=== PATIENT | male | born 1960 | race Hispanic/Latino ===

== ENCOUNTER → 2023-01-08 | Outpatient (CLI) | payer OTHER | END | disposition home or self-care (01) | LOC: RAH 14:35 | PROVIDERS: ATTEND Family Medicine | DX: M54.50 Low back pain, unspecified (principal); G89.29 Other chronic pain | CPT/HCPCS: 72100 ==

== ENCOUNTER 2024-07-04 11:43 | Inpatient (IN) | payer BC, OTHER ==
[~2024-07-04] VITALS: Ht 172.7 cm; Wt 80.0 kg
--- NOTE | 2024-07-04 12:03 | ERN ---
General Chief Complaint: Lower Extremity Pain/Injury Stated Complaint: LEG SWELLING Time Seen by MD: 11:45 History of Present Illness Initial Comments 64-year-old male presents to the ED for evaluation of lower extremity swelling onset 4 days ago. Patient reports shortness a breath, but denies any other associated symptoms at this time. Patient states he was diagnosed with advanced heart failure at [facility] in February and was prescribed Lasix. Patient states that since he is in house arrest he has trouble getting his prescriptions and is seeking medication refill. No other medical or surgical history mentioned. Allergies: Coded Allergies: No Known Drug Allergies (Unverified Allergy, Unknown, 07/04/24) Past Medical History Past Medical History: Anxiety, CHF, Depression, Diabetes-Type II, Hypertension, Hypothyroid, Renal Disese Past Surgical History: Appendectomy ROS Dictation Constitutional: Negative for fever,chills, and weight loss Eyes: Negative for injury, pain,redness, and discharge ENT: Negative for injury,pain or swelling Cardiovascular: Negative for chest pain, palpitations, and edema Respiratory: Positive for shortness breath, negative for cough, and wheezing, Abdomen/GI: Negative for abdominal pain, nausea, vomiting, diarrhea, and constipation Back: Negative for injury and pain : Negative for injury, bleeding and discharge MS/Extremity: Positive for lower extremity swelling Negative for injury and deformity Skin: Negative for rash, and discoloration Neuro: Negative for headache, weakness, numbness, tingling, and seizure Psych: Negative for suicide ideation, homicidal ideation, and hallucinations Physical Exam Physical Exam Dictation General: awake, alert, NAD Head/Face: Normocephalic, atraumatic Eyes: PERRL, EOMI, vision at baseline ENT: oral cavity clear, TMs clear, no signs of infection Neck: Trachea midline, supple, no nuchal rigidity Cardiovascular: RRR, normal S1/S2, No MRGs, no JVD 2+ bilateral lower extremity pedal edema Respiratory: CTAB, no respiratory distress, No rales or wheezes Abdomen: Soft, non-tender, non-distended, normal bowel sounds, no guarding or rebound. Skin: Warm, dry, normal turgor, no rash MS/Extremity: Pulses equal, no cyanosis, neurovascular intact, FROM Neuro: COAx4, GCS 15, strength 5/5, CN 2-12 intact, normal cerebellar exam, normal gait, Psych: Normal behavior, mood, and affect normal Results Laboratory and Microbiology Lab and Micro Result Laboratory Tests Test 07/04/24 12:07 White Blood Count 6.5 K/uL (4.8-10.8) Red Blood Count 4.86 MIL/uL (4.50-6.20) Hemoglobin 13.3 g/dL (14.0-18.0) L Hematocrit 41.7 % (42-54) L Mean Corpuscular Volume 85.8 fL (79-99) Mean Corpuscular Hemoglobin 27.4 pg (27.0-33.0) Mean Corpuscular Hemoglobin Concent 31.9 g/dL (32.0-36.0) L Red Cell Distribution Width 15.8 % (11.0-15.5) H Platelet Count 221 K/uL (130-400) Mean Platelet Volume 10.8 fL (7.5-10.5) H Immature Granulocyte % (Auto) 0.2 % (0-1) Neutrophils (%) (Auto) 65.9 % (40.0-77.0) Lymphocytes (%) (Auto) 16.9 % (21.0-51.0) L Monocytes (%) (Auto) 14.4 % (3.0-13.0) H Eosinophils (%) (Auto) 2.0 % (0.0-8.0) Basophils (%) (Auto) 0.6 % (0.0-5.0) Neutrophils # (Auto) 4.3 K/uL (1.8-7.7) Lymphocytes # (Auto) 1.1 K/uL (1.0-4.8) Monocytes # (Auto) 0.9 K/uL (0.1-1.0) Eosinophils # (Auto) 0.13 K/uL (0.00-0.70) Basophils # (Auto) 0.04 K/uL (0.00-0.20) Absolute Immature Granulocyte (auto 0.01 K/uL (0-1) Nucleated Red Blood Cells 0.0 % (0.0-0.19) Prothrombin Time 11.8 SEC (9.6-11.6) H Prothromb Time International Ratio 1.10 (0.85-1.15) Sodium Level 131 mmol/L (136-145) L Potassium Level 4.0 mmol/L (3.5-5.1) Chloride Level 97 mmol/L (101-111) L Carbon Dioxide Level 28 mmol/L (21-32) Blood Urea Nitrogen 38 mg/dL (7-18) H Creatinine 1.8 mg/dL (0.5-1.3) H Glomerular Filtration Rate Calc 42 mL/min (>90) Random Glucose 153 mg/dL (70-105) H Total Calcium 8.8 mg/dL (8.5-10.1) Magnesium Level 1.90 mg/dL (1.80-2.40) Total Creatine Kinase 143 U/L (21-232) Troponin I High Sensitivity 1617 ng/L (4-75) *H B-Type Natriuretic Peptide 3830 pg/mL (0-100) H Labs Reviewed?: Yes EKG/XRAY/US/CT/MRI EKG Comment EKG 07/04/2024 time told to ventricular rate 98, sinus rhythm, multiple premature complexes, probable left ventricular hypertrophy, nonspecific T abnormalities. No STEMI MDM MDM: Differential diagnosis: CHF cough fluid overload, ACS 1306- Hospitalist consult, accepts patient for admission Previous outside records reviewed: Old ER visits. Need for hospitalization: Patient does meet criteria for hospitalization. Need for emergency major/minor surgery: No Patient's prior external medical records from other ER visits were reviewed by me as indicated. Prior testing and results from previous visits were reviewed. Prior tests were taken into account with medical decision making and resource utilization, independent historian/historians were used to obtain complete medical history. I independently interpreted the test that were performed, results were reviewed by me and considered findings on radiology if ordered. Medical management and examination interpretation discussions were had by me with other qualified healthcare professionals as indicated for the patient's care. ED Course Orders Procedure Category Date Status Time Cbc With Differential LAB 07/04/24 Complete 11:54 Prothrombin Time With LAB 07/04/24 Complete INR 11:54 B-Type Natriuretic LAB 07/04/24 Complete Peptide 11:54 Chest 1vw RAD 07/04/24 Resulted 11:54 12 Lead Ekg Tracing- EKG 07/04/24 Complete Technical 11:54 Magnesium LAB 07/04/24 Complete 11:54 Creatine Kinase, Total LAB 07/04/24 Complete 11:54 Troponin I High LAB 07/04/24 Complete Sensitivity 11:54 Urinalysis Profile LAB 07/04/24 In Process 11:54 Basic Metabolic Panel LAB 07/04/24 Complete 11:54 Troponin I High LAB 07/04/24 Logged Sensitivity 12:51 Aspirin 325mg Ec Tab PHA 07/04/24 Complete (Aspirin 325mg Ec T 13:00 Heparin 5,000 Unit PHA 07/04/24 In Process Vial (Heparin 5,000 U 13:00 Guaifenesin-Dm PHA 07/04/24 In Process 200/20mg 10ml 13:30 Bumetanide 1mg/4ml PHA 07/04/24 Transmitted Vial (Bumex 1mg Vial) 13:30 Us Renal Sonogram US 07/04/24 Logged 13:18 Urine Sodium,Random LAB 07/04/24 Logged 13:18 Urine Creatinine LAB 07/04/24 Logged Random 13:18 Urea Nitrogen, Urine LAB 07/04/24 Logged Random 13:18 Current Medications Medications (Trade) Dose Ordered Sig/Anjelica Route PRN Reason Start Time Stop Time Status Last Admin Dose Admin Aspirin (Aspirin 325mg Ec Tab) 325 mg ONCE ONCE PO 07/04/24 13:00 07/04/24 13:01 DC 07/04/24 12:59 Bumetanide (Bumex 1mg Vial) 1 mg Q8H IVP 07/04/24 13:30 08/03/24 13:29 UNV Guaifenesin/ Dextromethorphan (RobiTUSSin DM 200/20MG 10ML) 10 ml Q6H PRN PO COUGH 07/04/24 13:30 08/03/24 13:29 Heparin Sodium (Porcine) (HEParin 5,000 UNIT VIAL) 5,000 unit ONCE SQ 07/04/24 13:00 08/03/24 12:59 07/04/24 12:59 Vital Signs Date Time Temp Pulse Resp B/P (MAP) Pulse Ox O2 Delivery O2 Flow Rate FiO2 07/04/24 12:19 98.8 95 17 114/87 95 Room Air* 0 21 07/04/24 11:45 97.5 96 18 132/91 96 Room Air HEART Score Response (Comments) Value History: Moderate suspicion (+1) 1 EKG: Normal 0 Age: 45-65yrs (+1) 1 Risk Factors: 3+ risk factors (+2) 2 Initial Troponin: 1-3x Normal Limit (+1) 1 HEART Score Risk: Mod Risk for MACE (4-6) Total 5 Critical Care Note Critical Time: other (Total critical care time was 33 minutes. Excluding time for procedures. Management of critically ill patient with concern for acute decompensation. Management included interpretation of laboratory values and imaging, hemodynamics, time for consultation with consultants and admitting physician.) DX & DISP Disposition: Inpatient Decision to Admit Date: Jul 04, 2024 Decision to Admit Time: 13:08 Departure Impression: Primary Impression: ACS (acute coronary syndrome) Additional Impressions: Acute CHF, Chronic CHF Condition: Stable Referrals: SELF,REFERRAL (PCP) I have reviewed, & agreed with my scribe's, documentation. (Entered by Dany Regalado, acting as a scribe for Dr. Rock) I personally scribed for MARIUM ROCK MD ([email or web address]) on 07/04/24 at 12:03. Electronically submitted by Dany Regalado ([employer]). I personally scribed for MARIUM ROCK MD ([email or web address]) on 07/04/24 at 12:27. Electronically submitted by Dany Regalado ([employer]). I personally scribed for MARIUM ROCK MD ([email or web address]) on 07/04/24 at 12:54. Electronically submitted by Dany Regalado ([employer]). I personally scribed for MARIUM ROCK MD ([email or web address]) on 07/04/24 at 13:08. Electronically submitted by Dany Regalado ([employer]). I personally scribed for MARIUM ROCK MD ([email or web address]) on 07/04/24 at 13:09. Electronically submitted by Dany Regalado ([employer]). MARIUM ROCK MD Jul 04, 2024 12:03
[2024-07-04 12:14] LABS: BASOPHILS # (AUTO) 0.04 K/uL (0.00-0.20); BASOPHILS % (AUTO) 0.6 % (0.0-5.0); EOSINOPHILS # (AUTO) 0.13 K/uL (0.00-0.70); HEMATOCRIT 41.7 % (42-54); IMMATURE GRANULOCYTE ABSOLUTE 0.01 K/uL (0-1); LYMPHOCYTES # (AUTO) 1.1 K/uL (1.0-4.8); LYMPHOCYTES % (AUTO) 16.9 % (21.0-51.0); MEAN CORPUSCULAR HEMOGLOBIN 27.4 pg (27.0-33.0); MEAN CORPUSCULAR HGB CONC 31.9 g/dL (32.0-36.0); MEAN CORPUSCULAR VOLUME 85.8 fL (79-99); MONOCYTES # (AUTO) 0.9 K/uL (0.1-1.0); MONOCYTES % (AUTO) 14.4 % (3.0-13.0); NEUTROPHILS # (AUTO) 4.3 K/uL (1.8-7.7); NEUTROPHILS % (AUTO) 65.9 % (40.0-77.0); PLATELET COUNT (AUTO) 221 K/uL (130-400); RED BLOOD CELL COUNT(AUTO) 4.86 MIL/uL (4.50-6.20); RED CELL DISTRIBUTION WIDTH 15.8 % (11.0-15.5); WHITE BLOOD COUNT (AUTO) 6.5 K/uL (4.8-10.8)
--- NOTE | 2024-07-04 12:15 | EKG ---
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
[2024-07-04 12:26] LABS: INR 1.1 (0.85-1.15); PROTHROMBIN TIME 11.8 SEC (9.6-11.6)
[2024-07-04 12:28] LABS: CREATININE 1.8 mg/dL (0.5-1.3)
[2024-07-04 12:33] LABS: MAGNESIUM 1.9 mg/dL (1.80-2.40)
--- NOTE | 2024-07-04 12:45 | HMCIMG ---
CHEST 1VW REASON: sob COMPARISON: None. FINDINGS: There is mild cardiomegaly. There is elevation of the right hemidiaphragm, there is a small to moderate right effusion. There are mild perihilar infiltrates which could be early interstitial edema. IMPRESSION: 1. Cardiomegaly with possible early edema. 2. Elevated right hemidiaphragm with a small to moderate right pleural effusion.
[2024-07-04 12:50] LABS: B-TYPE NATRIURETIC PEPTIDE 3830 pg/mL (0-100)
[2024-07-04] MEDS: HEParin 5,000 UNIT VIAL SQ SCH (12:59)
[2024-07-04] MEDS: ASPIRIN 325MG EC TAB PO ONE (12:59)
[2024-07-04 13:29] LABS: APPEARANCE,URINE CLEAR (CLEAR); BILIRUBIN,URINE NEGATIVE (NEGATIVE); COLOR,URINE YELLOW (YELLOW); GLUCOSE, URINE (UA) NEGATIVE (NEGATIVE); KETONES,URINE NEGATIVE (NEGATIVE); LEUKOCYTE ESTERASE ,URINE NEGATIVE Leu/uL (NEGATIVE); NITRATE,URINE NEGATIVE (NEGATIVE); OCCULT BLOOD,URINE MODERATE (NEGATIVE); PROTEIN,URINE 600 mg/dL (NEGATIVE)
[2024-07-04] MEDS ORDERED: guaiFENesin-DM 200/20MG 10ML PO PRN (13:30)
[2024-07-04 13:33] LABS: ADD UA MICROSCOPIC YES
[2024-07-04 13:46] LABS: HEMOGLOBIN A1C 9.6 % (4.0-6.0)
[2024-07-04 13:48] LABS: CREATININE,URINE RANDOM 126.79 mg/dL (30-135)
[2024-07-04 13:53] LABS: AMPHET/METH SCREEN,URINE NEGATIVE (NEGATIVE); BARBITURATE SCREEN, URINE NEGATIVE (NEGATIVE); BENZODIAZEPINES SCREEN,URINE NEGATIVE (NEGATIVE); CANNABINOID SCREEN,URINE NEGATIVE (NEGATIVE); COCAINE SCREEN,URINE NEGATIVE (NEGATIVE); OPIATE SCREEN,URINE NEGATIVE (NEGATIVE); PHENCYCLIDINE SCREEN,URINE NEGATIVE (NEGATIVE)
[2024-07-04 14:00] LABS: ALBUMIN 2.5 g/dL (3.5-5.0); BILIRUBIN,DIRECT 0.4 mg/dL (0.0-0.3); BILIRUBIN,TOTAL 1.1 mg/dL (0.2-1.0); THYROID STIMULATING HORMONE 20.11 uIU/mL (0.36-3.74)
[2024-07-04] MEDS ORDERED: NITROGLYCERIN 0.4 MG SL TAB SL PRN (14:00)
[2024-07-04] MEDS ORDERED: IpraTROPium 0.5 MG/2.5 ML INH IH PRN (14:00)
[2024-07-04] MEDS ORDERED: ondanSETRON 4MG INJ IVP PRN (14:00)
[2024-07-04 14:04] VITALS: PULSE 96; RESP 18; O2SAT 98
--- NOTE | 2024-07-04 14:05 | HMCIMG ---
US RENAL SONOGRAM REASON: RENAL FAILURE COMPARISON: None TECHNIQUE: Renal and bladder sonogram was performed. FINDINGS: Right kidney is 9.4 x 5.4 x 4.5 cm, left 9.5 x 4.8 x 4.7 cm. There is no mass, stone or hydronephrosis. Cortex appears preserved. Cortex appears mildly echogenic. Urinary bladder was not distended at the time of dictation. IMPRESSION: 1. Mildly echogenic but otherwise normal-appearing kidneys. 2. Urinary bladder not well seen.
--- NOTE | 2024-07-04 14:05 | HMCIMG ---
US VENOUS DOPPLER BILATERAL REASON: R/O dvt, BILATERAL LOWER EXTREMITY EDEMA COMPARISON: None Technique: Bilateral venous doppler ultrasound was performed with spectral analysis and color flow imaging technique. FINDINGS: There is a normal appearance of the common femoral, deep femoral, the profunda femoris and popliteal veins. Proximal calf veins appear normal as well. There is normal response to compression and augmentation. There is no evidence of deep venous thrombosis. IMPRESSION: Normal bilateral lower extremity venous Doppler ultrasound.
[2024-07-04 14:18] LABS: BACTERIA,URINE RARE /HPF (None Seen)
[2024-07-04] MEDS: BUMETANIDE 1MG/4ML VIAL IVP SCH (14:42)
[2024-07-04 14:46] LABS: SARS-CoV-2, RNA, NAAT NEGATIVE SARS CoV-2 (NEGATIVE)
[2024-07-04 14:52] LABS: INFLUENZA TYPE A Negative For Type A (NEGATIVE); INFLUENZA TYPE B Negative For Type B (NEGATIVE)
--- NOTE | 2024-07-04 16:17 | HP ---
[facility] HISTORY AND PHYSICAL Date of Service: Jul 04, 2024 Time of Service: 14:23 HISTORY OF PRESENT ILLNESS: 64 year old male with a past medical history of hypertension, hyperlipidemia, uncontrolled diabetes type II A1c 9.6, diabetic neuropathy, stage 3 chronic kidney disease, Hx of proliferative retinopathy of bilateral eyes with bilateral vitreous hemorrhage and bilateral cataracts (Legally blind of both eyes) and hx of suspected severe ischemic cardiomyopathy who presented to the ED with complaints of being short of breath for the past four days and lower extremity swelling. Patient states he was diagnosed with advanced heart failure in February and was prescribed Lasix. Patient states that since he is in house arrest he has trouble getting his prescriptions and is seeking medication refill. He denies chest pain, vomiting, abdominal pain, diarrhea, constipation, and fever. He has been unable to follow up with Cardiology as outpatient. Patient also states when he sleeps he wakes up gasping for air and is unable to walk more than 50-60 feet. Patient was hospitalized in [facility] in February, for heart failure exacerbation. Patient was seen by Cardiology and underwent stress test. Patient reports receiving anticoagulation therapy during hospitalization which caused severe vision movement which took several months to slowly improve. Patient reports he continued to be legally blind. Patient was advised on cardiac catheterization but due to hx of vitreous hemorrhage, patient opted for medical management minimizing antiplatelet/ anticoagulant therapy. In the ED patient was given aspirin and a 12 lead EKG showed sinus rhythm with multiple premature complexes probably due to left ventricular hypertrophy with nonspecific T abnormalities. A chest x-ray shows cardiomegaly with possible early edema and an elevated right hemidiaphragm with a small to moderate right pleural effusion. Remarkable labs: Hemoglobin 13.3, hematocrit 41.7, elevated PT of 11.8, elevated troponins of 1404. Urinalysis shows proteinuria 600, hematuria, hyaline casts and positive for urobilinogenuria. AST 67, ALK-PHOS 232, CRP 11.8, TSH 20.11. Physical exam showed bilateral lower lobe crackles on auscultation with bilateral pitting edema on the lower extremities. Abdomen was soft and nontender. Patient will be admitted for further management of heart failure exacerbation in the setting of severe cardiomyopathy with EF less than 20 %. Patient will be admitted to Cardiac telemetry floor and consultation with Nephrology and Cardiology will be requested. REVIEW OF SYSTEMS CONSTITUTIONAL: Complains of chills and sweats but denies fever. No unintentional weight loss reported. NEUROLOGICAL: Denies headache, amaurosis fugax, motor weakness, sensory deficit, vertigo/spinning sensation, gait abnormalities, or tremors. ENT: No hearing loss, otalgia, otorrhea, rhinitis, rhinorrhea, hoarseness, or sore throat. CARDIOVASCULAR: Denies any exertional angina, dyspnea on exertion, complains of orthopnea and paroxysmal nocturnal dyspnea, denies palpitations, life- threatening arrhythmias, claudication. PULMONARY: Complains of shortness of breath, cough, denies phlegm/sputum, hemoptysis, pleuritic chest pain. SLEEP: Denies morning headaches, daytime somnolence or napping. Complains of difficulty falling asleep, staying asleep, waking from sleep. Denies knowledge of snoring. GASTROINTESTINAL: Denies any type of dysphagia to either liquids or solids. Denies nausea, vomiting, pyrosis, early satiety, abdominal pain, diarrhea, constipation, or changes in stool consistency or caliber. Denies coffee-ground emesis, hematemesis, hematochezia, or melanotic stools. GENITOURINARY: Denies frequency, urgency, nocturia, hematuria or incontinence (Storage/Irritative symptoms.) Low urinary stream, straining to void, urinary intermittency or hesitancy, splitting of the voiding stream, terminal dribbling. ENDOCRINOLOGIC: Denies polyuria, polydipsia, polyphagia or heat/cold intolerances. HEMATOLOGIC: Denies thrombophilia/previous clots, or coagulopathy/bleeding disorders. ONCOLOGIC: Denies personal history of malignancy. DERMATOLOGIC: Denies rashes or pruritus. PSYCHIATRIC: Denies any suicidal or homicidal ideation. Denies hallucinations. PAST MEDICAL HISTORY: Diabetes type II for 30 years, hypertension, hyperlipidemia, diabetic retinopathy and neuropathy, chronic kidney disease stage III, advanced heart failure with suspected ischemic cardiomyopathy, Hx of proliferative retinopathy of bilatera l eyes with bilateral vitreous hemorrhage and bilateral cataracts, reports being legally blind for several months now PAST SURGICAL HISTORY: appendectomy 2018 PAST SOCIAL HISTORY: former smoker and social drinker denies illicit drug use independent with ADL's, needs assistance with ADL's Patient is in house arrest currently FAMILY HISTORY: noncontributory Allergies: patient has no known drugs allergies Home medications: patient will be bringing home medication list to be reconciled and updated Coded Allergies: No Known Drug Allergies (Unverified Allergy, Unknown, 07/04/24) PHYSICAL EXAM GENERAL APPEARANCE: The patient is awake, alert, and oriented, in no acute cardiopulmonary distress. NEUROLOGICAL: Cranial nerves II-XII grossly intact. Motor is 5/5 in bilateral upper and lower extremities proximal to distal. No sensory deficits. HEENT: Face is symmetric. Pupils are equal and reactive. Extraocular movements are intact. NECK: Supple. No JVD. No thyromegaly. No submental, submandibular, pre- /postauricular, occipital or supraclavicular lymphadenopathy. CHEST: Normal chest expansion. No Telemetry. LUNGS: bilateral lower lobe crackles CARDIOVASCULAR: Regular. S1 and S2 normal. No appreciable rubs, murmurs or gallops. ABDOMEN: Soft, nontender, and nondistended. There is no rebound, voluntary guarding, or rigidity. : Deferred. No Guillermo. EXTREMITIES: 2+ bilateral lower leg pitting edema. not cyanotic. No clubbing. Good capillary refill. SKIN: No skin breakdown. Vital Sign (Last 24 Hours) 07/04/24 07/04/24 13:25 14:04 Temp 98.8 Pulse 96 Resp 18 B/P (MAP) 145/98 Pulse Ox 99 O2 Delivery N/A Room Air O2 Flow Rate 0 FiO2 21 LABS: Laboratory: Test 07/04/24 13:22 07/04/24 13:03 07/04/24 12:07 Range/Units Lactic Acid Level 1.8 0.8-2.5 mmol/L Total Bilirubin 1.1 H 0.2-1.0 mg/dL Direct Bilirubin 0.4 H 0.0-0.3 mg/dL Aspartate Amino Transf (AST/SGOT) 67 H 10-37 U/L Alanine Aminotransferase (ALT/SGPT) 56 12-78 U/L Alkaline Phosphatase 232 H 50-136 U/L Troponin I High Sensitivity 1404 *H 4-75 ng/L C-Reactive Protein, Quantitative 11.80 H 0.5-3.0 mg/L Total Protein 8.0 6.0-8.3 g/dL Albumin 2.5 L 3.5-5.0 g/dL Procalcitonin 0.08 0.05-0.5 ng/mL Thyroid Stimulating Hormone (TSH) 20.11 H 0.36-3.74 uIU/mL Urine Color YELLOW YELLOW Urine Appearance CLEAR CLEAR Urine pH 6.0 5.0-8.0 Urine Specific Sarah Ann 1.019 1.001-1.031 Urine Protein 600 H NEGATIVE mg/dL Urine Glucose (UA) NEGATIVE NEGATIVE mg/dL Urine Ketones NEGATIVE NEGATIVE mg/dL Urine Occult Blood MODERATE H NEGATIVE Urine Nitrate NEGATIVE NEGATIVE Urine Bilirubin NEGATIVE NEGATIVE mg/dL Urine Urobilinogen 2.0 H 0.2-1.0 mg/dL Urine Leukocyte Esterase NEGATIVE NEGATIVE Anabelle/uL Urine RBC 11-25 H 0-1 /HPF Urine WBC 2-5 H 0-1 /HPF Urine Bacteria RARE None Seen /HPF Urine Hyaline Casts 6-10 H 0-1 /LPF /LPF Urine Random Creatinine 126.79 30-135 mg/dL Urine Random Sodium 55 40-220 mmol/l Urine Opiates Screen NEGATIVE NEGATIVE Urine Barbiturates Screen NEGATIVE NEGATIVE Urine Phencyclidine Screen NEGATIVE NEGATIVE Urine Amphetamines Screen NEGATIVE NEGATIVE Urine Benzodiazepines Screen NEGATIVE NEGATIVE Urine Cocaine Screen NEGATIVE NEGATIVE Urine Marijuana (THC) Screen NEGATIVE NEGATIVE White Blood Count 6.5 4.8-10.8 K/uL Red Blood Count 4.86 4.50-6.20 MIL/uL Hemoglobin 13.3 L 14.0-18.0 g/dL Hematocrit 41.7 L 42-54 % Mean Corpuscular Volume 85.8 79-99 fL Mean Corpuscular Hemoglobin 27.4 27.0-33.0 pg Mean Corpuscular Hemoglobin Concent 31.9 L 32.0-36.0 g/dL Red Cell Distribution Width 15.8 H 11.0-15.5 % Platelet Count 221 130-400 K/uL Mean Platelet Volume 10.8 H 7.5-10.5 fL Immature Granulocyte % (Auto) 0.2 0-1 % Neutrophils (%) (Auto) 65.9 40.0-77.0 % Lymphocytes (%) (Auto) 16.9 L 21.0-51.0 % Monocytes (%) (Auto) 14.4 H 3.0-13.0 % Eosinophils (%) (Auto) 2.0 0.0-8.0 % Basophils (%) (Auto) 0.6 0.0-5.0 % Neutrophils # (Auto) 4.3 1.8-7.7 K/uL Lymphocytes # (Auto) 1.1 1.0-4.8 K/uL Monocytes # (Auto) 0.9 0.1-1.0 K/uL Eosinophils # (Auto) 0.13 0.00-0.70 K/uL Basophils # (Auto) 0.04 0.00-0.20 K/uL Absolute Immature Granulocyte (auto 0.01 0-1 K/uL Nucleated Red Blood Cells 0.0 0.0-0.19 % Prothrombin Time 11.8 H 9.6-11.6 SEC Prothromb Time International Ratio 1.10 0.85-1.15 Sodium Level 131 L 136-145 mmol/L Potassium Level 4.0 3.5-5.1 mmol/L Chloride Level 97 L 101-111 mmol/L Carbon Dioxide Level 28 21-32 mmol/L Blood Urea Nitrogen 38 H 7-18 mg/dL Creatinine 1.8 H 0.5-1.3 mg/dL Glomerular Filtration Rate Calc 42 >90 mL/min Random Glucose 153 H 70-105 mg/dL Hemoglobin A1c 9.6 H 4.0-6.0 % Estimated Average Glucose (eAG) 229 H 70-126 mg/dL Total Calcium 8.8 8.5-10.1 mg/dL Magnesium Level 1.90 1.80-2.40 mg/dL Total Creatine Kinase 143 21-232 U/L B-Type Natriuretic Peptide 3830 H 0-100 pg/mL Current Medications Medications (Trade) Dose Ordered Sig/Anjelica Route PRN Reason Start Time Stop Time Status Last Admin Dose Admin Acetaminophen (TYLenol 500MG TAB) 500 mg Q6H PRN PO MILD PAIN (1-3) 07/04/24 14:00 08/03/24 13:59 Aspirin (Aspirin 81mg Ec Tab) 81 mg DAILY PO 07/05/24 09:00 08/04/24 08:59 Budesonide (Pulmicort 0.5 Mg/2ml) 0.5 mg BIDRESP IH 07/04/24 18:00 08/03/24 17:59 Bumetanide (Bumex 1mg Vial) 1 mg Q8H IVP 07/04/24 13:30 08/03/24 13:29 Guaifenesin/ Dextromethorphan (RobiTUSSin DM 200/20MG 10ML) 10 ml Q6H PRN PO COUGH 07/04/24 13:30 08/03/24 13:29 Heparin Sodium (Porcine) (HEParin 5,000 UNIT VIAL) 5,000 unit ONCE SQ 07/04/24 13:00 07/04/24 13:37 DC 07/04/24 12:59 5,000 UNIT Insulin Human Regular (humuLIN R 100 UNIT/ML 3ML) INSULIN SLIDING SCAL... ACHS SQ 07/04/24 16:30 08/03/24 16:29 Ipratropium [place] (AtrovENT UD) 0.5 mg Q6H PRN IH SHORTNESS OF BREATH 07/04/24 14:00 08/03/24 13:59 Magnesium Sulfate 50 ml @ 0 mls/hr PROTOCOL IV 07/04/24 14:00 08/03/24 13:59 Nitroglycerin (Nitrostat) 0.4 mg AD PRN SL CHEST PAIN 07/04/24 14:00 08/03/24 13:59 Ondansetron HCl (zoFRAN 4MG INJ) 4 mg Q6H PRN IVP NAUSEA/VOMITING 07/04/24 14:00 08/03/24 13:59 DIAGNOSTICS / RADIOLOGY: [place] [address] IMAGING REPORT Signed PATIENT: RENATA BANERJEE MR#: [id number] : 1960 SEX: M AGE: 64 LOCATION: [facility] ORDER 1155 STATUS: REG ER REPORT#: [id number] SERVICE 1154 REASON: sob ORDERING PHYSICIAN: MARIUM WYNN MD PROCEDURE: CXR1VW - CHEST 1VW CHEST 1VW REASON: sob COMPARISON: None. FINDINGS: There is mild cardiomegaly. There is elevation of the right hemidiaphragm, there is a small to moderate right effusion. There are mild perihilar infiltrates which could be early interstitial edema. IMPRESSION: 1. Cardiomegaly with possible early edema. 2. Elevated right hemidiaphragm with a small to moderate right pleural effusion. DICTATED BY: CAMDEN WAGNER MD DATE: 07/04/24 124 ELECTRONICALLY SIGNED BY: CAMDEN WAGNER MD DATE: 07/04/24 [address] [place] [id number] [address] IMAGING REPORT Signed PATIENT: RENATA BANERJEE MR#: [id number] : 1960 SEX: M AGE: 64 LOCATION: [facility] ORDER 1320 STATUS: ADM IN REPORT#: [id number] SERVICE 1318 REASON: RENAL FAILURE ORDERING PHYSICIAN: ANNITA WEEMS MD PROCEDURE: RENAL - US RENAL SONOGRAM US RENAL SONOGRAM REASON: RENAL FAILURE COMPARISON: None TECHNIQUE: Renal and bladder sonogram was performed. FINDINGS: Right kidney is 9.4 x 5.4 x 4.5 cm, left 9.5 x 4.8 x 4.7 cm. There is no mass, stone or hydronephrosis. Cortex appears preserved. Cortex appears mildly echogenic. Urinary bladder was not distended at the time of dictation. IMPRESSION: 1. Mildly echogenic but otherwise normal-appearing kidneys. 2. Urinary bladder not well seen. DICTATED BY: CAMDEN WAGNER MD DATE: 07/04/241401 ELECTRONICALLY SIGNED BY: CAMDEN WAGNER MD DATE: 07/04/24 [address] [place] [address] [address] IMAGING REPORT Signed PATIENT: RENATA BANERJEE MR#: [id number] : 1960 SEX: M AGE: 64 LOCATION: [facility] ORDER 1330 STATUS: ADM IN REPORT#: [id number] SERVICE 1327 REASON: R/O dvt, BILATERAL LOWER EXTREMITY EDEMA ORDERING PHYSICIAN: ANNITA WEEMS MD PROCEDURE: VENOUS BENJA - US VENOUS DOPPLER BILATERAL US VENOUS DOPPLER BILATERAL REASON: R/O dvt, BILATERAL LOWER EXTREMITY EDEMA COMPARISON: None Technique: Bilateral venous doppler ultrasound was performed with spectral analysis and color flow imaging technique. FINDINGS: There is a normal appearance of the common femoral, deep femoral, the profunda femoris and popliteal veins. Proximal calf veins appear normal as well. There is normal response to compression and augmentation. There is no evidence of deep venous thrombosis. IMPRESSION: Normal bilateral lower extremity venous Doppler ultrasound. DICTATED BY: CAMDEN WAGNER MD DATE: 07/04/241402 ELECTRONICALLY SIGNED BY: CAMDEN WAGNER MD DATE: 07/04/241404 ASSESSMENT: 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, POA Hx of severe suspected Ischemic Cardiomyopathy with LVEF less than 20%, POA Acute Hypoxemic respiratory failure with Cardiogenic Pulmonary edema, POA JOAQUÍN on CKD with Suspected underlying Cardiorenal Syndrome, POA Nephrotic range proteinuria, POA Elevated Troponin, likely due to CHF exacerbation and Demand Ischemia, r/o active ACS, POA Hx of Bilateral Vitreous Hemorrhage with legal blindness, POA Hx of Bilateral Cataracts of the eyes, POA diabetes mellitus type II A1c 9.6 - POA stage III chronic kidney disease - POA hyperlipidemia - POA hypertension - POA Right sided Pleural Effusion, POA cardiorenal syndrome - POA bilateral diabetic or hypertensive retinopathy bilateral diabetic neuropathy former smoker Uncontrolled Hypothyroidism, POA PLAN: Admit to PCCU Acute on chronic combined congestive heart failure exacerbation Hx of suspected severe ICM with EF less than 20 % Hx of positive stress test in 02/27 Cardiogenic Pulmonary edema with right sided pleural effusion Rule out ACS - Cardiology consult. Appreciate recommendations - Bumex 1mg Q8H, monitor urine output closely, may need inotropic support with Dobutamine in case patient urine output remains poor - 2D echo follow up on results - Trend troponin to r/o active ACS - Hold beta blockers for now given low output state, hold MAKSIM due to JOAQUÍN on CKD - Nitrostat 0.4 mg prn for chest pain - Strict I & Os - Daily weight - Fluid restriction less than 1.5L in 24 hour - Heart healthy diet - Follow hemodynamics JOAQUÍN on CKD Suspected Cardiorenal syndrome Stage III chronic kidney disease Diabetes type II A1c 9.6 Bilateral diabetic/hypertensive retinopathy Bilateral diabetic neuropathy Hypertension -Nephrology consult. Appreciate recommendations - renal ultrasound - Urine protein - Urine creatine - Strict monitoring of intake, output and overall fluid balance - Daily weights - Avoid nephrotoxic medications to the extent possible - Monitor electrolytes and replace as needed - Medications to be dosed according to renal function - Avoid contrast if possible - Maintain blood glucose between 100-180 at all times - Basal Lantus 10 units - Insulin sliding scale for blood glucose management - Hypoglycemia and hyperglycemia protocol in place Acute Hypoxic Respiratory due to Pulmonary edema Right sided Pleural Effusion as per chest xray 07/04/24 c/w IV diuresis Atrovent 0.5mg q6h prn for SOB Pulmicort 0.5 mg Supplemental O2 as needed BiPAP as necessary for respiratory distress Titrate Fio2 to keep Spo2 > or = 90% DuoNebs and CPT (chest physical therapy) as needed IS hourly while awake for pulmonary Out of bed to chair as tolerated Maintain aspiration precautions at all times Hx of Bilateral vitreous hemorrhage with legal blindness Hx of bilateral cataracts Hx of retinopathy of bilateral eyes - Patient reports that his vision worsened after receiving anticoagulation and antiplatelet therapy in [facility], he wants to hold off on heparin gtt or full dose Lovenox. I spoke with Dr. Nolan with Ophthalmology who stated that patient has been legally blind since 08/28. Per her, we can proceed with antiplatelet/ anticoagulation as benefits of treating his cardiac comorbidities outweigh the risk of worsening his vision. Patient still wants to hold off on a/c as he worried about losing his vision. Per Dr. Nolan, she may evaluate him in [facility] in t he next 2-3 days, if unable to, she recommended close ooutpatient follow up with Ophthalmology in clinic Hyperlipidemia - Atorvastatin 20 mg HS - Zofran 4mg q6h prn nausea - Acetaminophen 500 mg PO q6h for pain - DVT prophylaxis - SCD's of bilateral legs - PT/OT - Repeat Labs in the AM - Repeat Chest Xray in the AM - Follow further medical management per Nephrology and Cardiology recommendations ATTESTATION BY PHYSICIAN I have seen and examined the patient personally. I reviewed the documentation, medical decision making, and treatment plan as noted by the resident provider above. I agree with the findings and plan of care. ALBERTO White MD Jul 04, 2024 16:17 ANNITA WEEMS MD Jul 05, 2024 19:04
[2024-07-04 16:35] VITALS: BP 114/50; PULSE 97; RESP 18; TEMP 97.7
[2024-07-04] MEDS ORDERED: FURO40TA5 PO (16:40)
[2024-07-04] MEDS ORDERED: MELO-108 PO (16:40)
[2024-07-04] MEDS ORDERED: FAMO20TA8 PO (16:40)
[2024-07-04] MEDS ORDERED: ATOR20TA65 PO (16:40)
[2024-07-04] MEDS ORDERED: LEVO50CA4 PO (16:40)
[2024-07-04] MEDS ORDERED: LOSA25TA41 PO (16:40)
[2024-07-04] MEDS ORDERED: AEC81 PO (16:40)
[2024-07-04] MEDS ORDERED: METO-391 PO (16:40)
[2024-07-04] MEDS: INSULIN humuLIN R 100 UNIT/ML 3ML SQ SCH (16:52)
--- NOTE | 2024-07-04 16:57 | CONS ---
CONSULT NOTE: CARDIOLOGY Reason for consult: CHF HPI/story at presentation: This is a pleasant 64-year-old male with past medical history of the present with complaints of shortness of breath, was diagnosed with CHF exacerbation ca rdiology was consulted for further evaluation management. Known history of cardiomyopathy, ejection fraction 15 to 20% with previous stress testing with no ischemia or infarction pattern, 02/2024 he has been noncompliant with Lasix at home, here for further eval Management Subjective: 07/04/2024, shortness of breath, lower extremity edema Past medical history: See below Allergies, Meds See chart Review of systems Review of Systems Constitutional: Negative for chills and fever. HENT: Negative for ear discharge and ear pain. Eyes: Negative for photophobia and discharge. Respiratory: Negative for cough, sputum production and stridor. Cardiovascular: Negative for chest pain and palpitations. Gastrointestinal: Negative for diarrhea and vomiting. Genitourinary: Negative for frequency. Musculoskeletal: Negative for myalgias. Skin: Negative for rash. Neurological: Negative for focal weakness and seizures. Endo/Heme/Allergies: Negative for polydipsia. Psychiatric/Behavioral: Negative for hallucinations. Vitals see chart PHYSICAL EXAMINATION GENERAL: The patient is alert and oriented*3 HEENT: Nonicteric sclerae, non traumatic HEART: Regular rate and rhythm with no murmurs LUNGS: Clear to auscultation bilaterally ABDOMEN: No acute issues, non tender GENITAL, RECTAL: deferred SKIN: No rash NEUROLOGIC: NFND EXTREMITIES:EDEMA 06/2024 ASSESSMENT EXACERBATION OF CHF Noncompliant with diuretics at home History of suspected ischemic cardiomyopathy Stress test with infarction pattern, 02/2024 Ejection fraction of 15 to 20%, 06/2024 On diuresis with Bumex, 06/2024 Normal venous Dopplers, 06/2024 NSTEMI Initial troponin of 1600, trending down HEMATURIA Moderate hematuria, 06/2024 CHRONIC KIDNEY DISEASE Stage III 1.8 at presentation Creatinine at discharge from hospital, 06/2024 was 2.2 HYPERTENSION HYPERLIPIDEMIA DIABETES, TOBACCO USE CORE MEASURES Not on guideline directed medical therapy for cardiomyopathy given renal dysfunction OTHER MEDICAL PROBLEMS Anxiety disorder Diabetic neuropathy PLAN 07/04/2024 patient with NSTEMI, CHF exacerbation at presentation. Although type II elevation is possible, given presentation, will need to ensure that he does not have underlying ACS. EKG with non specific changes and no chest pain. Ideally, needs to be on anticoagulation with heparin to help with potential ACS. However, at this time, patient is concerned about increased retinal bleeding with anticoagulation and had not been on antiplatelets or anticoagulants before for the same reason. Although risk of myocardial injury is a concern, troponins are trending down and given risk of visual loss, after extensive discussion with the patient, plan is not to anticoagulate at this time. Will repeat echocardiogram to reassess ejection fraction. Post diuresis, may consider ischemic evaluation as needed. Also, underlying cardiorenal syndrome and therefore, may need dobutamine support for diuresis. Will follow closely ATTESTATION I was involved substantially in the care of this patient Number and complexity of problems addressed: 1 acute illness with systemic features Amount and or complexity of data Review of prior external note(s) from each unique source: 2+ Ordering of each unique test : 0 Review of the result(s) of each unique test: 2+ Assessment requiring an independent historian(s): No Independent interpretation of test performed by another MD/QHCP/appropriate source (not separately reported) : Yes echocardiogram Discussion of management or test interpretation with external MD/QHCP/appropriate source (not separately reported) : no Risk status (cardiac, billing related): GUSTAVO David MD Jul 04, 2024 16:57
[2024-07-04 19:00] VITALS: O2SAT 98
[2024-07-04 20:19] LABS: MAGNESIUM 1.9 mg/dL (1.80-2.40)
[2024-07-04 20:22] LABS: POTASSIUM 2.9 mmol/L (3.5-5.1)
[2024-07-04] MEDS ORDERED: PoTASSium chloRIDE 20MEQ ER 20 MEQ ERTAB PO PRN (20:30)
[2024-07-04] MEDS ORDERED: PoTASSium chloRIDE 20MEQ/100ML 100 ML IV PRN (20:30)
[2024-07-04] MEDS: PoTASSium chloRIDE 20MEQ ER 20 MEQ ERTAB PO ONE (20:57)
[2024-07-04] MEDS: PoTASSium chloRIDE 10MEQ/100ML 100 ML IV ONE (23:08)
[2024-07-04] MEDS: ALPRAZolam 0.25 MG TABLET PO ONE (23:44)
[2024-07-04 23:59] VITALS: PULSE 83; RESP 18
[2024-07-04] MEDS: BUDESONIDE 0.5 MG/2 ML INH IH SCH (23:59)
[2024-07-05] VITALS (10 sets, daily range): BP systolic 106–120; BP diastolic 66–89; PULSE 55–111; RESP 16–18; TEMP 97.6–98.4; O2SAT 97–98
[2024-07-05] MEDS: PoTASSium chl 10% ELIXIR 20MEQ 20 MEQ/15 ML UDCUP PO PRN (01:20)
[2024-07-05 03:40] LABS: BASOPHILS # (AUTO) 0.05 K/uL (0.00-0.20); BASOPHILS % (AUTO) 0.8 % (0.0-5.0); EOSINOPHILS # (AUTO) 0.09 K/uL (0.00-0.70); EOSINOPHILS % (AUTO) 1.5 % (0.0-8.0); HEMATOCRIT 39.5 % (42-54); IMMATURE GRANULOCYTE ABSOLUTE 0.02 K/uL (0-1); LYMPHOCYTES % (AUTO) 15.8 % (21.0-51.0); MEAN CORPUSCULAR HEMOGLOBIN 27.7 pg (27.0-33.0); MEAN CORPUSCULAR HGB CONC 32.2 g/dL (32.0-36.0); MEAN CORPUSCULAR VOLUME 86.2 fL (79-99); MONOCYTES # (AUTO) 0.8 K/uL (0.1-1.0); MONOCYTES % (AUTO) 13.3 % (3.0-13.0); NEUTROPHILS # (AUTO) 4.1 K/uL (1.8-7.7); NEUTROPHILS % (AUTO) 68.3 % (40.0-77.0); PLATELET COUNT (AUTO) 205 K/uL (130-400); RED BLOOD CELL COUNT(AUTO) 4.58 MIL/uL (4.50-6.20); RED CELL DISTRIBUTION WIDTH 15.9 % (11.0-15.5)
[2024-07-05 04:00] LABS: ALBUMIN 2.4 g/dL (3.5-5.0); CREATININE 1.9 mg/dL (0.5-1.3); MAGNESIUM 1.8 mg/dL (1.80-2.40); POTASSIUM 4.2 mmol/L (3.5-5.1); TOTAL PROTEIN, SERUM 7.8 g/dL (6.0-8.3)
[2024-07-05] MEDS: MAGNESIUM 2GM PREMIX 50ML 50 ML IV SCH (06:20)
[2024-07-05] MEDS ORDERED: LoSARTan 25 MG TABLET PO SCH (09:00)
[2024-07-05] MEDS: ASPIRIN 81 MG EC TAB PO SCH (09:23)
[2024-07-05] MEDS: metoLAZONE 2.5 MG TABLET PO ONE (09:24)
[2024-07-05] MEDS: INSULIN GLARgine 100 UNITS/ML 10 ML VIAL SQ SCH (09:28)
--- NOTE | 2024-07-05 09:41 | HMCIMG ---
CHEST 1VW REASON: assess pulmonary edema COMPARISON: 07/04/2024 FINDINGS: There is borderline cardiomegaly. There is a small right pleural effusion. Lungs are now clear. There is no pulmonary vascular congestion. Right hemidiaphragm remains elevated. IMPRESSION: 1. Interval resolution of mild vascular congestion. 2. Small right pleural effusion.
--- NOTE | 2024-07-05 11:14 | HMCSR ---
APPROVED REPORT EXAM: Two-dimensional and M-mode echocardiogram with Doppler and color Doppler. INDICATION ICD: Chest Pain Heart Failure 2D Dimensions RVDd4.6 cmLVEF(%)24.9 (>50%)LVED Vol(simp.)171.0 mL IVSd0.7 (0.7-1.1cm)FS(%)12 %LVES Vol(simp.)139.0 mL LVDd5.9 (3.8-5.6cm)LA (2D)3.8 (1.6-4.0cm)LVEF(%, simp.)19 % PWd1.0 (0.7-1.1cm)Ao Root(2D)3.6 (2.0-3.7cm)LA ESV INDEX (4CH)42.20 mL/m2 IVSs0.9 cmLVOT diam2.1 (1.8-2.4cm)LA ESV INDEX (2CH)46.10 mL/m2 LVDs5.2 (2.5-4.0cm)IVC diam2.4 cmLA ESV INDEX (BP)46.00 mL/m2 PWs1.4 cm Deformation Strain Apical 46.0 % Apical 28.0 % Apical 35.0 % Global Strain6.0 % M-Mode Dimensions EPSS2.4 cm LA (MM)3.6 (1.6-4.0cm) Ao Root(MM)3.7 (2.0-3.7cm) Aortic Valve AoV VTI0.1 mAo Mean GR2.0 mmHgLVOT VTI0.14 m JOVANNI (VMAX)3.6 cm2Al P1/2T438 msAVA (VTI) 3.6 cm2 Mitral Valve MV E Vmax95.6 cm/sDECEL Ofub941 ms MV A Vmax32.0 cm/sP 1/2 T84 ms E/A ratio3.0MVA (PHT)2.6 cm2 TDI E/E' Rsofrj10.9E/E' Ynvmaee20.0 Medial E' Peak V4.00 cm/sLateral E' Peak V5.30 cm/s Pulmonary Valve PI End Dagmar. Rkishna 124.9 cm/s Tricuspid Valve TR Vmax3.8 m/sRAP (EST) 15 fdMnHAFO92.4 mmHg TR Peak GR57.4 mmHg Left Ventricle The left ventricle is severely dilated. There is global hypokinesis of the left ventricle. GLS -6%. S evere hypokinesis There is normal left ventricular wall thickness. LVEF is <20%. Stage III diastolic dysfunction. Right Ventricle The right ventricle is mildly dilated. Right ventricular systolic function is moderately to severely reduced. Atria The left atrium is mildly dilated. The right atrium is severely dilated. Aortic Valve The aortic valve is normal in structure. Mild to moderate aortic regurgitation. There is no aortic va lvular stenosis. Mitral Valve The mitral valve is normal in structure. Mitral regurgitation is trace to mild. There is no mitral va lve stenosis. Tricuspid Valve The tricuspid valve is normal in structure. There is severe tricuspid valve regurgitation noted, RVSP 74mmHg. Pulmonic Valve The pulmonary valve is normal in structure. There is no pulmonic valvular regurgitation. Great Vessels The aortic root is normal in size. IVC is dilated and collapses <50% with inspiration. Pericardium There is no pericardial effusion. Conclusion LVEF is <20%. There is global hypokinesis of the left ventricle. GLS -6%. Severe hypokinesis There is normal left ventricular wall thickness. The left ventricle is severely dilated. Stage III diastolic dysfunction. The right ventricle is mildly dilated. Right ventricular systolic function is moderately to severely reduced. The left atrium is mildly dilated. The right atrium is severely dilated. Mild to moderate aortic regurgitation. Mitral regurgitation is trace to mild. There is severe tricuspid valve regurgitation noted, RVSP 74mmHg. NO effusion Study quality was adequate
[2024-07-05] MEDS: DOPamine 800MG/D5 250ML 250 ML IV SCH (13:25)
--- NOTE | 2024-07-05 13:38 | PN ---
[facility] PROGRESS NOTE Date of Service: Jul 05, 2024 Time of Service: 13:30 SUBJECTIVE: 07/05 Pt seen at bedside, no acute events overnight. Shortness of breath has improved, however he still has orthopnea and cough. Lower extremities with 2+ pitting edema. Will continue with diuresis, further care per cardiology. He is hemodynamically stable. Creatinine improved from 2.0 down to 1.9, sodium decreased from 138 down to 130, remainder of his labs are relatively unremarkable. REVIEW OF SYSTEMS 12 point ROS negative unless noted in HPI PHYSICAL EXAM GENERAL APPEARANCE: The patient is awake, alert, and oriented, in no acute cardiopulmonary distress. NEUROLOGICAL: Cranial nerves II-XII grossly intact. Motor is 5/5 in bilateral upper and lower extremities proximal to distal. No sensory deficits. HEENT: Face is symmetric. Pupils are equal and reactive. Extraocular movements are intact. NECK: Supple. No JVD. No thyromegaly. No submental, submandibular, pre- /postauricular, occipital or supraclavicular lymphadenopathy. CHEST: Normal chest expansion. No Telemetry. LUNGS: bilateral lower lobe crackles CARDIOVASCULAR: Regular. S1 and S2 normal. No appreciable rubs, murmurs or gallops. ABDOMEN: Soft, nontender, and nondistended. There is no rebound, voluntary guarding, or rigidity. : Deferred. No Guillermo. EXTREMITIES: bilateral lower leg edema. not cyanotic. No clubbing. Good capillary refill. SKIN: No skin breakdown. Vital Signs (last 8hr) Date Time Temp Pulse Resp B/P (MAP) Pulse Ox O2 Delivery O2 Flow Rate FiO2 07/05/24 13:25 122/89 07/05/24 12:04 97.5 93 16 112/89 98 Room Air 07/05/24 08:03 98.1 89 16 116/87 100 Room Air 07/05/24 07:30 98 Room Air* 0 21 07/05/24 07:18 89 18 N/A Room Air 21 07/05/24 07:18 82 18 LABS: Laboratory: Test 07/05/24 11:32 07/05/24 03:29 07/04/24 18:27 07/04/24 14:17 Range/Units Whole Blood Glucose 156 H 70-110 MG/DL White Blood Count 6.0 4.8-10.8 K/uL Red Blood Count 4.58 4.50-6.20 MIL/uL Hemoglobin 12.7 L 14.0-18.0 g/dL Hematocrit 39.5 L 42-54 % Mean Corpuscular Volume 86.2 79-99 fL Mean Corpuscular Hemoglobin 27.7 27.0-33.0 pg Mean Corpuscular Hemoglobin Concent 32.2 32.0-36.0 g/dL Red Cell Distribution Width 15.9 H 11.0-15.5 % Platelet Count 205 130-400 K/uL Mean Platelet Volume 10.2 7.5-10.5 fL Immature Granulocyte % (Auto) 0.3 0-1 % Neutrophils (%) (Auto) 68.3 40.0-77.0 % Lymphocytes (%) (Auto) 15.8 L 21.0-51.0 % Monocytes (%) (Auto) 13.3 H 3.0-13.0 % Eosinophils (%) (Auto) 1.5 0.0-8.0 % Basophils (%) (Auto) 0.8 0.0-5.0 % Neutrophils # (Auto) 4.1 1.8-7.7 K/uL Lymphocytes # (Auto) 1.0 1.0-4.8 K/uL Monocytes # (Auto) 0.8 0.1-1.0 K/uL Eosinophils # (Auto) 0.09 0.00-0.70 K/uL Basophils # (Auto) 0.05 0.00-0.20 K/uL Absolute Immature Granulocyte (auto 0.02 0-1 K/uL Nucleated Red Blood Cells 0.0 0.0-0.19 % Sodium Level 130 L 136-145 mmol/L Potassium Level 4.2 3.5-5.1 mmol/L Chloride Level 97 L 101-111 mmol/L Carbon Dioxide Level 29 21-32 mmol/L Blood Urea Nitrogen 39 H 7-18 mg/dL Creatinine 1.9 H 0.5-1.3 mg/dL Glomerular Filtration Rate Calc 39 >90 mL/min Random Glucose 216 #H 70-105 mg/dL Total Calcium 8.7 8.5-10.1 mg/dL Magnesium Level 1.80 1.80-2.40 mg/dL Total Bilirubin 1.0 0.2-1.0 mg/dL Aspartate Amino Transf (AST/SGOT) 55 H 10-37 U/L Alanine Aminotransferase (ALT/SGPT) 52 12-78 U/L Alkaline Phosphatase 209 H 50-136 U/L Total Protein 7.8 6.0-8.3 g/dL Albumin 2.4 L 3.5-5.0 g/dL Free Thyroxine (T4) Direct 1.18 0.76-1.46 ng/dL Free Triiodothyronine (T3) pg/mL 1.98 L 2.18-3.98 pg/mL Influenza Type A Antigen Negative For Type A NEGATIVE Influenza Type B Antigen Negative For Type B NEGATIVE SARS-CoV-2, RNA, NAAT NEGATIVE SARS CoV-2 NEGATIVE Test 07/04/24 13:22 07/04/24 13:03 07/04/24 12:07 Range/Units Lactic Acid Level 1.8 0.8-2.5 mmol/L Direct Bilirubin 0.4 H 0.0-0.3 mg/dL Troponin I High Sensitivity 1404 *H 4-75 ng/L C-Reactive Protein, Quantitative 11.80 H 0.5-3.0 mg/L Procalcitonin 0.08 0.05-0.5 ng/mL Thyroid Stimulating Hormone (TSH) 20.11 H 0.36-3.74 uIU/mL Urine Color YELLOW YELLOW Urine Appearance CLEAR CLEAR Urine pH 6.0 5.0-8.0 Urine Specific [place] 1.019 1.001-1.031 Urine Protein 600 H NEGATIVE mg/dL Urine Glucose (UA) NEGATIVE NEGATIVE mg/dL Urine Ketones NEGATIVE NEGATIVE mg/dL Urine Occult Blood MODERATE H NEGATIVE Urine Nitrate NEGATIVE NEGATIVE Urine Bilirubin NEGATIVE NEGATIVE mg/dL Urine Urobilinogen 2.0 H 0.2-1.0 mg/dL Urine Leukocyte Esterase NEGATIVE NEGATIVE [place]/uL Urine RBC 11-25 H 0-1 /HPF Urine WBC 2-5 H 0-1 /HPF Urine Bacteria RARE None Seen /HPF Urine Hyaline Casts 6-10 H 0-1 /LPF /LPF Urine Random Creatinine 126.79 30-135 mg/dL Urine Random Total Protein 646.1 H 0-11.9 mg/dL Urine Random Sodium 55 40-220 mmol/l Urine Opiates Screen NEGATIVE NEGATIVE Urine Barbiturates Screen NEGATIVE NEGATIVE Urine Phencyclidine Screen NEGATIVE NEGATIVE Urine Amphetamines Screen NEGATIVE NEGATIVE Urine Benzodiazepines Screen NEGATIVE NEGATIVE Urine Cocaine Screen NEGATIVE NEGATIVE Urine Marijuana (THC) Screen NEGATIVE NEGATIVE Prothrombin Time 11.8 H 9.6-11.6 SEC Prothromb Time International Ratio 1.10 0.85-1.15 Hemoglobin A1c 9.6 H 4.0-6.0 % Estimated Average Glucose (eAG) 229 H 70-126 mg/dL Total Creatine Kinase 143 21-232 U/L B-Type Natriuretic Peptide 3830 H 0-100 pg/mL Current Medications Medications (Trade) Dose Ordered Sig/Anjelica Route PRN Reason Start Time Stop Time Status Last Admin Dose Admin Acetaminophen (TYLenol 500MG TAB) 500 mg Q6H PRN PO MILD PAIN (1-3) 07/04/24 14:00 08/03/24 13:59 Aspirin (Aspirin 81mg Ec Tab) 81 mg DAILY PO 07/05/24 09:00 08/04/24 08:59 07/05/24 09:23 81 MG Atorvastatin Calcium (LIPItor 20MG) 20 mg HS PO 07/05/24 21:00 08/04/24 20:59 Budesonide (Pulmicort 0.5 Mg/2ml) 0.5 mg BIDRESP IH 07/04/24 18:00 08/03/24 17:59 07/05/24 07:17 0.5 MG Bumetanide (Bumex 1mg Vial) 1 mg Q8H IVP 07/04/24 13:30 08/03/24 13:29 07/05/24 13:22 1 MG Dopamine HCl/ Dextrose 250 ml @ 0 mls/hr PROTOCOL IV 07/05/24 13:00 08/04/24 12:59 07/05/24 13:25 12 MLS/HR Guaifenesin/ Dextromethorphan (RobiTUSSin DM 200/20MG 10ML) 10 ml Q6H PRN PO COUGH 07/04/24 13:30 08/03/24 13:29 Heparin Sodium (Porcine) (HEParin 5,000 UNIT VIAL) 5,000 unit ONCE SQ 07/04/24 13:00 07/04/24 13:37 DC 07/04/24 12:59 5,000 UNIT Insulin Glargine (LANtus 100 UNITS/ML 10 ML VIAL) 10 units DAILY SQ 07/05/24 09:00 08/04/24 08:59 07/05/24 09:28 10 UNITS Insulin Human Regular (humuLIN R 100 UNIT/ML 3ML) INSULIN SLIDING SCAL... ACHS SQ 07/04/24 16:30 08/03/24 16:29 07/05/24 06:35 2 UNIT Ipratropium [place] (AtrovENT UD) 0.5 mg Q6H PRN IH SHORTNESS OF BREATH 07/04/24 14:00 08/03/24 13:59 Losartan Potassium (CozAAR 25MG TAB) 25 mg DAILY PO 07/05/24 09:00 07/04/24 16:43 DC Magnesium Sulfate 50 ml @ 0 mls/hr PROTOCOL IV 07/04/24 14:00 08/03/24 13:59 07/05/24 06:20 25 MLS/HR Nitroglycerin (Nitrostat) 0.4 mg AD PRN SL CHEST PAIN 07/04/24 14:00 08/03/24 13:59 Ondansetron HCl (zoFRAN 4MG INJ) 4 mg Q6H PRN IVP NAUSEA/VOMITING 07/04/24 14:00 08/03/24 13:59 Potassium Chloride 100 ml @ 50 mls/hr AD PRN IV POTASSIUM PROTOCOL 07/04/24 20:30 08/03/24 20:29 Potassium Chloride (K-Dur 10meq Sr Tab) 10 meq AD PRN PO POTASSIUM PROTOCOL 07/05/24 09:30 08/03/24 20:29 Potassium Chloride (K-Dur/Klor-Con 20meq) 10 meq AD PRN PO POTASSIUM PROTOCOL 07/04/24 20:30 07/05/24 09:02 DC Potassium Chloride (KCl 10% Elixir 20meq/15ml) 10 meq AD PRN PO POTASSIUM PROTOCOL 07/04/24 20:30 08/03/24 20:29 07/05/24 01:20 10 MEQ DIAGNOSTICS / RADIOLOGY: [ ] ASSESSMENT: acute on chronic combined congestive heart failure exacerbation - POA noncompliance of medication - POA JOAQUÍN vs CKD, unknown baseline - POA rule out active ACS - trend troponins acute hypoxic respiratory failure, improving diabetes mellitus type II A1c 9.6 - POA hyperlipidemia - POA hypertension - POA bilateral pulmonary edema - POA bilateral diabetic or hypertensive retinopathy bilateral diabetic neuropathy former smoker proteinuria - POA possible paroxysmal nocturnal dyspnea - POA PLAN: Continue PCCU Cardiology consulted, appreciate recommendations We will seek a Nephrology consulted, appreciate recommendations Continue diuresis, Bumex 0.5 mg BID We will monitor blood sugars and insulin sliding scale, Patient placed on basal lantus 10 units Avoid nephrotoxic medications and renally dose Continue asa 81 mg Aspiration precautions in place Strict fluid restrictions 1.5L daily, and daily weights Patient will be on a cardiac diet GI and DVT prophylaxis We will repeat labs tomorrow Follow further medical recommendations from Nephrology and Cardiology Disposition: Pending diuresis, improvement in clinical status SIDDHARTHA JOHNSON MD Jul 05, 2024 13:37
[2024-07-05] MEDS: doBUTamine 250MG/D5 250ML 250 ML IV ONE (13:52)
[2024-07-05] MEDS ORDERED: doBUTamine 250MG/D5 250ML 250 ML IV SCH (14:00)
--- NOTE | 2024-07-05 14:02 | PN ---
CARDIOLOGY Reason for consult: CHF HPI/story at presentation: This is a pleasant 64-year-old male with past medical history of the present with complaints of shortness of breath, was diagnosed with CHF exacerbation cardiology was consulted for further evaluation management. Known history of cardiomyopathy, ejection fraction 15 to 20% with previous stress testing with no ischemia or infarction pattern, 02/2024 he has been noncompliant with Lasix at home, here for further eval Management Subjective: 07/04/2024, shortness of breath, lower extremity edema feeling better Past medical history: See below Allergies, Meds See chart Review of systems Review of Systems Constitutional: Negative for chills and fever. HENT: Negative for ear discharge and ear pain. Eyes: Negative for photophobia and discharge. Respiratory: Negative for cough, sputum production and stridor. Cardiovascular: Negative for chest pain and palpitations. Gastrointestinal: Negative for diarrhea and vomiting. Genitourinary: Negative for frequency. Musculoskeletal: Negative for myalgias. Skin: Negative for rash. Neurological: Negative for focal weakness and seizures. Endo/Heme/Allergies: Negative for polydipsia. Psychiatric/Behavioral: Negative for hallucinations. Vitals see chart PHYSICAL EXAMINATION GENERAL: The patient is alert and oriented*3 HEENT: Nonicteric sclerae, non traumatic HEART: Regular rate and rhythm with no murmurs LUNGS: Clear to auscultation bilaterally ABDOMEN: No acute issues, non tender GENITAL, RECTAL: deferred SKIN: No rash NEUROLOGIC: NFND EXTREMITIES:EDEMA 06/2024 ASSESSMENT EXACERBATION OF CHF Noncompliant with diuretics at home History of suspected ischemic cardiomyopathy Stress test with infarction pattern, 02/2024 Ejection fraction of 15 to 20%, 06/2024 On diuresis with Bumex, 06/2024 Normal venous Dopplers, 06/2024 NSTEMI Initial troponin of 1600, trending down HEMATURIA Moderate hematuria, 06/2024 CHRONIC KIDNEY DISEASE Stage III 1.8 at presentation Creatinine at discharge from hospital, 06/2024 was 2.2 HYPERTENSION HYPERLIPIDEMIA DIABETES, TOBACCO USE CORE MEASURES Not on guideline directed medical therapy for cardiomyopathy given renal dysfunction OTHER MEDICAL PROBLEMS Anxiety disorder Diabetic neuropathy PLAN 07/04/2024 patient with NSTEMI, CHF exacerbation at presentation. Although type II elevation is possible, given presentation, will need to ensure that he does not have underlying ACS. EKG with non specific changes and no chest pain. Ideally, needs to be on anticoagulation with heparin to help with potential ACS. However, at this time, patient is concerned about increased retinal bleeding with anticoagulation and had not been on antiplatelets or anticoagulants before for the same reason. Although risk of myocardial injury is a concern, troponins are trending down and given risk of visual loss, after extensive discussion with the patient, plan is not to anticoagulate at this time. Will repeat echocardiogram to reassess ejection fraction. Post diuresis, may consider ischemic evaluation as needed. Also, underlying cardiorenal syndrome and therefore, may need dobutamine support for diuresis. Will follow closely 07/05/2024 breathing better, -600 on output, Remains on Bumex 3 times daily, also got a dose of metolazone this morning, potassium is being replaced. Will add a small dose of dobutamine to help with diuresis. Do not titrate and leave at 2.5. Hopefully, this helps his renal function as well. Primary team reached out to ophthalmology on-call and per ophthalmology, may consider anticoagulation if needed/antithrombotics if needed in spite of previous history of vitreal hemorrhage and proliferative retinopathy given risk and benefit. Patient himself would like to stay of antithrombotics if possible. Troponins have trended down and at this time, plan remains to stay off anticoagulation. Will consider coronary angiography prior to discharge depending on renal function and clinical course. Continue diuresis. ATTESTATION I was involved substantially in the care of this patient Number and complexity of problems addressed: 1 acute illness with systemic features Amount and or complexity of data Review of prior external note(s) from each unique source: 2+ Ordering of each unique test : 0 Review of the result(s) of each unique test: 2+ Assessment requiring an independent historian(s): No Independent interpretation of test performed by another MD/QHCP/appropriate source (not separately reported) : Yes echocardiogram Discussion of management or test interpretation with external MD/QHCP/appropriate source (not separately reported) : no Risk status (cardiac, billing related): High Vitals/Labs Vital Signs Date Time Temp Pulse Resp B/P (MAP) Pulse Ox O2 Delivery O2 Flow Rate FiO2 07/05/24 13:52 154/95 07/05/24 12:04 97.5 93 16 98 Room Air 07/05/24 07:30 0 21 Laboratory Tests 07/04/24 18:27 07/05/24 03:29 Medications Current Medications Aspirin 325 mg ONCE ONCE PO Last administered on 07/04/24at 12:59; Start 07/04/24 at 13:00; Stop 07/04/24 at 13:01; Status DC Heparin Sodium (Porcine) 5,000 unit ONCE SQ Last administered on 07/04/24at 12:59; Start 07/04/24 at 13:00; Stop 07/04/24 at 13:37; Status DC Guaifenesin/ Dextromethorphan 10 ml Q6H PRN PO; Start 07/04/24 at 13:30; Stop 08/03/24 at 13:29 Bumetanide 1 mg Q8H IVP Last administered on 07/05/24at 13:22; Start 07/04/24 at 13:30; Stop 08/03/24 at 13:29 Insulin Human Regular INSULIN SLIDING SCAL... ACHS SQ Last administered on 07/05/24at 06:35; Start 07/04/24 at 16:30; Stop 08/03/24 at 16:29 Magnesium Sulfate 50 ml @ 0 mls/hr PROTOCOL IV Last administered on 07/05/24at 06:20; Start 07/04/24 at 14:00; Stop 08/03/24 at 13:59 Acetaminophen 500 mg Q6H PRN PO; Start 07/04/24 at 14:00; Stop 08/03/24 at 13:59 Ondansetron HCl 4 mg Q6H PRN IVP; Start 07/04/24 at 14:00; Stop 08/03/24 at 13:59 Ipratropium [place] 0.5 mg Q6H PRN IH; Start 07/04/24 at 14:00; Stop 08/03/24 at 13:59 Budesonide 0.5 mg BIDRESP IH Last administered on 07/05/24at 07:17; Start 07/04/24 at 18:00; Stop 08/03/24 at 17:59 Aspirin 81 mg DAILY PO Last administered on 07/05/24at 09:23; Start 07/05/24 at 09:00; Stop 08/04/24 at 08:59 Nitroglycerin 0.4 mg AD PRN SL; Start 07/04/24 at 14:00; Stop 08/03/24 at 13:59 Losartan Potassium 25 mg DAILY PO; Start 07/05/24 at 09:00; Stop 07/04/24 at 16:43; Status DC Potassium Chloride 100 ml @ 50 mls/hr AD PRN IV; Start 07/04/24 at 20:30; Stop 08/03/24 at 20:29 Potassium Chloride 10 meq AD PRN PO Last administered on 07/05/24at 01:20; Start 07/04/24 at 20:30; Stop 08/03/24 at 20:29 Potassium Chloride 10 meq AD PRN PO; Start 07/04/24 at 20:30; Stop 07/05/24 at 09:02; Status DC Potassium Chloride 40 meq ONCE ONCE PO Last administered on 07/04/24at 20:57; Start 07/04/24 at 21:00; Stop 07/04/24 at 21:01; Status DC Potassium Chloride 100 ml @ 100 mls/hr ONCE ONCE IV; Start 07/05/24 at 00:00; Stop 07/05/24 at 00:59; Status DC Alprazolam 0.25 mg ONCE ONCE PO Last administered on 07/04/24at 23:47; Start 07/04/24 at 23:00; Stop 07/04/24 at 23:01; Status DC Insulin Glargine 10 units DAILY SQ Last administered on 07/05/24at 09:28; Start 07/05/24 at 09:00; Stop 08/04/24 at 08:59 Metolazone 5 mg ONCE ONCE PO Last administered on 07/05/24at 09:24; Start 07/05/24 at 09:00; Stop 07/05/24 at 09:01; Status DC Potassium Chloride 10 meq AD PRN PO; Start 07/05/24 at 09:30; Stop 08/03/24 at 20:29 Atorvastatin Calcium 20 mg HS PO; Start 07/05/24 at 21:00; Stop 08/04/24 at 20:59 Dopamine HCl/ Dextrose 250 ml @ 0 mls/hr PROTOCOL IV; Start 07/05/24 at 13:00; Stop 07/05/24 at 13:48; Status DC Dobutamine HCl/ Dextrose 250 ml @ As Directed STK-MED ONCE IV Last administered on 07/05/24at 13:52; Start 07/05/24 at 13:36; Stop 07/05/24 at 13:41; Status DC Dobutamine HCl/ Dextrose 250 ml @ 0 mls/hr PROTOCOL IV; Start 07/05/24 at 14:00; Stop 08/04/24 at 13:59; Status GUSTAVO CELAYA MD Jul 05, 2024 14:02
[2024-07-05] MEDS: atorVAStatin 20 MG TABLET PO SCH (22:36)
[2024-07-05] MEDS: acetaMINOPHEN 500 MG TABLET PO PRN (22:36)
--- NOTE | 2024-07-05 23:22 | CONS ---
REFERRING PHYSICIAN: Morgan Yap M.D. REASON FOR CONSULTATION: Renal failure. I did discuss with the primary team. HISTORY OF PRESENT ILLNESS: A 64-year-old male with a history of diabetes mellitus and hypertension. The patient with a history of known diabetic retinopathy. The patient presented to the hospital with increasing shortness of breath and orthopnea. The patient had been prescribed Lasix, although the patient has a history of noncompliance with general medical care. In the Emergency Room, the patient was found to have significant renal dysfunction with an elevated BUN and creatinine as well as a chest x-ray consistent with pulmonary vascular congestion. Urinalysis did reveal underlying proteinuria and the patient is being seen in consultation for all the above. PAST MEDICAL HISTORY: Diabetes mellitus, hypertension, retinopathy, heart failure. PAST SURGICAL HISTORY: Appendectomy. SOCIAL HISTORY: He lives independently. There is no tobacco use. FAMILY HISTORY: No renal disease in the family. ALLERGIES: There are no allergies. MEDICATIONS: All noted. REVIEW OF SYSTEMS: GENERAL: He is feeling weak and tired. HEENT: No change in vision. No change in hearing, no nasal discharge, no sore throat. CARDIOVASCULAR: No current chest pain or palpitations. PULMONARY: As described above. GASTROINTESTINAL: The patient is tolerating diet. MUSCULOSKELETAL: Complains of weakness. NEUROLOGIC: No seizures or focal deficits. PSYCHIATRIC: No history of hallucinations or psychosis. ENDOCRINE: Diabetes mellitus. No history of thyroid disease. HEME: No history of anemia or malignancy. PHYSICAL EXAMINATION: VITAL SIGNS: Blood pressure 116/87, pulse 80s. GENERAL: Chronically ill male, older than appearing. HEENT: Head is atraumatic. Pupils equal, roving to light. Oropharynx is without exudate. Nares clear. NECK: There is no JVP. There is no thyromegaly, no mass. CARDIOVASCULAR: Regular. There is no S3, S4 gallop. LUNGS: Coarse with equal thoracic movement. ABDOMEN: Soft, nondistended, nontender. EXTREMITIES: Reveal no clubbing, no cyanosis. NEUROLOGICAL: He is awake. He is alert. He is oriented. SKIN: Reveals no rash or nodules. BACK: There is no CVA tenderness, no back deformities. LABORATORY DATA: Sodium 130, potassium 4.2, BUN 39, creatinine 1.9. Hemoglobin 12, hematocrit 39. Urinalysis reveal nephrotic range proteinuria. Urine drug screen is negative. Chest x-ray does reveal pulmonary vascular congestion. Renal ultrasound is noted. IMPRESSION: * Acute on chronic renal failure. * Diabetic nephropathy. * Volume overload. * Hypertension. PLAN: The patient has been started on the diuretics. The patient will be given a one-time dose of metolazone 5 mg p.o. x1. The patient can safely be resumed on losartan as blood pressure allows. There is no need for any form of renal replacement therapy at this time. We will continue to monitor the patient closely. Once the patient is discharged, the patient will benefit from [facility] as an outpatient. We will continue to monitor closely and make further recommendations accordingly. TID: [id number] RECEIPT: [id number]
[2024-07-06] VITALS (10 sets, daily range): BP systolic 108–120; BP diastolic 58–90; PULSE 95–114; RESP 16–18; TEMP 97.7–98.4; O2SAT 95–98
[2024-07-06 03:55] LABS: BASOPHILS # (AUTO) 0.05 K/uL (0.00-0.20); BASOPHILS % (AUTO) 0.8 % (0.0-5.0); EOSINOPHILS # (AUTO) 0.17 K/uL (0.00-0.70); EOSINOPHILS % (AUTO) 2.6 % (0.0-8.0); HEMATOCRIT 38.1 % (42-54); IMMATURE GRANULOCYTE ABSOLUTE 0.02 K/uL (0-1); LYMPHOCYTES # (AUTO) 0.8 K/uL (1.0-4.8); LYMPHOCYTES % (AUTO) 12.4 % (21.0-51.0); MEAN CORPUSCULAR HEMOGLOBIN 27.3 pg (27.0-33.0); MEAN CORPUSCULAR VOLUME 85.2 fL (79-99); NEUTROPHILS # (AUTO) 4.5 K/uL (1.8-7.7); NEUTROPHILS % (AUTO) 68.9 % (40.0-77.0); PLATELET COUNT (AUTO) 198 K/uL (130-400); RED BLOOD CELL COUNT(AUTO) 4.47 MIL/uL (4.50-6.20); WHITE BLOOD COUNT (AUTO) 6.6 K/uL (4.8-10.8)
[2024-07-06 04:08] LABS: CREATININE 2.4 mg/dL (0.5-1.3); MAGNESIUM 1.9 mg/dL (1.80-2.40); PHOSPHORUS 4.4 mg/dL (2.5-4.9); POTASSIUM 4.2 mmol/L (3.5-5.1)
[2024-07-06] MEDS: BUMETANIDE 1MG/4ML VIAL IVP SCH (09:04)
--- NOTE | 2024-07-06 10:04 | PN ---
FOLLOWUP PROGRESS NOTE SUBJECTIVE: A 64-year-old male with a history of end-stage cardiomyopathy. The patient presented to the hospital with volume overload. The patient was started on the diuretics. He has had acute on chronic renal failure in the hospital. Creatinine has been elevated. The patient's pulmonary symptoms have improved while in the hospital. Urine output has also improved. The patient's weight is declined by 2 kilos overnight. He is being seen as a followup visit for all of the above. REVIEW OF SYSTEMS: GENERAL: He is feeling improved. HEENT: No change in vision. No change in hearing. CARDIOVASCULAR: There is no current chest pains or palpitations. PULMONARY: Shortness of breath is improved. GASTROINTESTINAL: He is tolerating a diet. MUSCULOSKELETAL: Complains of weakness. PHYSICAL EXAMINATION: VITAL SIGNS: Blood pressure 108/79, pulse in the 100s. GENERAL: Chronically ill male, elderly, lying in bed on medical floor. HEENT: Head is atraumatic. Pupils equal, roving to light. Oropharynx is without exudate. Nares clear. NECK: There is no JVP. There is no thyromegaly. CARDIOVASCULAR: Regular. There is no S3, S4 gallop. LUNGS: Coarse with equal thoracic movement. ABDOMEN: Soft, nondistended, nontender. EXTREMITIES: Reveal no clubbing, no cyanosis. NEUROLOGIC: He is awake. He is alert. LABORATORY DATA: Sodium 132, potassium 4.2, chloride 96, bicarbonate 36, BUN 140, creatinine is 2.4. Hemoglobin 12, hematocrit 38. IMPRESSION: * Renal dysfunction. * Cardiomyopathy. * Contraction alkalosis. * Diabetes mellitus. PLAN: The patient now with significant contraction alkalosis. We will decrease the Bumex to every 12 hours and we will continue to follow closely. The patient's workup is ongoing per Cardiology. The patient has been started on dobutamine. We will continue to follow the patient closely. The patient with multiple questions, all of which were answered. TID: [id number] RECEIPT: [id number]
[2024-07-06] MEDS ORDERED: doBUTamine 250MG/D5 250ML 250 ML IV SCH (10:30)
[2024-07-06] MEDS: doBUTamine 250MG/D5 250ML 250 ML IV SCH (11:50)
[2024-07-06] MEDS ORDERED: LACTULOSE 20 GM/30 ML UDCUP PO PRN (12:00)
--- NOTE | 2024-07-06 13:26 | PN ---
[facility] 07/06/24 1326: CARDIOLOGY Reason for consult: CHF HPI/story at presentation: This is a pleasant 64-year-old male with past medical history of the present with complaints of shortness of breath, was diagnosed with CHF exacerbation cardiology was consulted for further evaluation management. Known history of cardiomyopathy, ejection fraction 15 to 20% with previous stress testing with no ischemia or infarction pattern, 02/2024 he has been noncompliant with Lasix at home, here for further eval Management Subjective: 07/04/2024, shortness of breath, lower extremity edema feeling better 07/06/2024 patient seen and evaluated at bedside No events were reported overnight Patient reports overall feeling better today Continues on IV dobutamine at 2.5 Past medical history: See below Allergies, Meds See chart Review of systems Review of Systems Constitutional: Negative for chills and fever. HENT: Negative for ear discharge and ear pain. Eyes: Negative for photophobia and discharge. Respiratory: Negative for cough, sputum production and stridor. Cardiovascular: Negative for chest pain and palpitations. Gastrointestinal: Negative for diarrhea and vomiting. Genitourinary: Negative for frequency. Musculoskeletal: Negative for myalgias. Skin: Negative for rash. Neurological: Negative for focal weakness and seizures. Endo/Heme/Allergies: Negative for polydipsia. Psychiatric/Behavioral: Negative for hallucinations. Vitals see chart PHYSICAL EXAMINATION GENERAL: The patient is alert and oriented*3 HEENT: Nonicteric sclerae, non traumatic HEART: Regular rate and rhythm with no murmurs LUNGS: Clear to auscultation bilaterally ABDOMEN: No acute issues, non tender GENITAL, RECTAL: deferred SKIN: No rash NEUROLOGIC: NFND EXTREMITIES:EDEMA 06/2024 ASSESSMENT EXACERBATION OF CHF Noncompliant with diuretics at home History of suspected ischemic cardiomyopathy Stress test with infarction pattern, 02/2024 Ejection fraction of 15 to 20%, 06/2024 On diuresis with Bumex, 06/2024 Normal venous Dopplers, 06/2024 NSTEMI Initial troponin of 1600, trending down HEMATURIA Moderate hematuria, 06/2024 CHRONIC KIDNEY DISEASE Stage III 1.8 at presentation Creatinine at discharge from hospital, 06/2024 was 2.2 HYPERTENSION HYPERLIPIDEMIA DIABETES, TOBACCO USE CORE MEASURES Not on guideline directed medical therapy for cardiomyopathy given renal dysfunction OTHER MEDICAL PROBLEMS Anxiety disorder Diabetic neuropathy PLAN 07/04/2024 patient with NSTEMI, CHF exacerbation at presentation. Although type II elevation is possible, given presentation, will need to ensure that he does not have underlying ACS. EKG with non specific changes and no chest pain. Ideally, needs to be on anticoagulation with heparin to help with potential ACS. However, at this time, patient is concerned about increased retinal bleeding with anticoagulation and had not been on antiplatelets or anticoagulants before for the same reason. Although risk of myocardial injury is a concern, troponins are trending down and given risk of visual loss, after extensive discussion with the patient, plan is not to anticoagulate at this time. Will repeat echocardiogram to reassess ejection fraction. Post diuresis, may consider ischemic evaluation as needed. Also, underlying cardiorenal syndrome and therefore, may need dobutamine support for diuresis. Will follow closely 07/05/2024 breathing better, -600 on output, Remains on Bumex 3 times daily, also got a dose of metolazone this morning, potassium is being replaced. Will add a small dose of dobutamine to help with diuresis. Do not titrate and leave at 2.5. Hopefully, this helps his renal function as well. Primary team reached out to ophthalmology on-call and per ophthalmology, may consider anticoagulation if needed/antithrombotics if needed in spite of previous history of vitreal hemorrhage and proliferative retinopathy given risk and benefit. Patient himself would like to stay of antithrombotics if possible. Troponins have trended down and at this time, plan remains to stay off anticoagulation. Will consider coronary angiography prior to discharge depending on renal function and clinical course. Continue diuresis. 07/06/2024 patient is Bumex was decreased to every 12 hours. Attempted to increase dobutamine drip to 5. The patient experienced sinus tachycardia rate of 120 to 130 shortly after. Dobutamine drip was decreased back to 2.5. Creatinine increased to 2.4 today. Continue with Nephrology recommendations Repeat BMP in the AM Avoid any nephrotoxic medications as possible Will discuss coronary angiogram if renal function improves. ATTESTATION Vitals/Labs Vital Signs Date Time Temp Pulse Resp B/P (MAP) Pulse Ox O2 Delivery O2 Flow Rate FiO2 07/06/24 12:50 119/74 07/06/24 12:10 97.7 110 18 94 Room Air 07/06/24 08:00 0 21 Laboratory Tests 07/06/24 03:22 Medications Current Medications Aspirin 325 mg ONCE ONCE PO Last administered on 07/04/24at 12:59; Start 07/04/24 at 13:00; Stop 07/04/24 at 13:01; Status DC Heparin Sodium (Porcine) 5,000 unit ONCE SQ Last administered on 07/04/24at 12:59; Start 07/04/24 at 13:00; Stop 07/04/24 at 13:37; Status DC Guaifenesin/ Dextromethorphan 10 ml Q6H PRN PO; Start 07/04/24 at 13:30; Stop 08/03/24 at 13:29 Bumetanide 1 mg Q8H IVP Last administered on 07/06/24at 05:42; Start 07/04/24 at 13:30; Stop 07/06/24 at 08:38; Status DC Insulin Human Regular INSULIN SLIDING SCAL... ACHS SQ Last administered on 07/06/24at 11:51; Start 07/04/24 at 16:30; Stop 08/03/24 at 16:29 Magnesium Sulfate 50 ml @ 0 mls/hr PROTOCOL IV Last administered on 07/05/24at 06:20; Start 07/04/24 at 14:00; Stop 08/03/24 at 13:59 Acetaminophen 500 mg Q6H PRN PO Last administered on 07/05/24at 22:36; Start 07/04/24 at 14:00; Stop 08/03/24 at 13:59 Ondansetron HCl 4 mg Q6H PRN IVP; Start 07/04/24 at 14:00; Stop 08/03/24 at 13:59 Ipratropium [place] 0.5 mg Q6H PRN IH; Start 07/04/24 at 14:00; Stop 08/03/24 at 13:59 Budesonide 0.5 mg BIDRESP IH Last administered on 07/06/24at 06:27; Start 07/04/24 at 18:00; Stop 08/03/24 at 17:59 Aspirin 81 mg DAILY PO Last administered on 07/06/24at 09:05; Start 07/05/24 at 09:00; Stop 08/04/24 at 08:59 Nitroglycerin 0.4 mg AD PRN SL; Start 07/04/24 at 14:00; Stop 08/03/24 at 13:59 Losartan Potassium 25 mg DAILY PO; Start 07/05/24 at 09:00; Stop 07/04/24 at 16:43; Status DC Potassium Chloride 100 ml @ 50 mls/hr AD PRN IV; Start 07/04/24 at 20:30; Stop 08/03/24 at 20:29 Potassium Chloride 10 meq AD PRN PO Last administered on 07/05/24at 01:20; Start 07/04/24 at 20:30; Stop 08/03/24 at 20:29 Potassium Chloride 10 meq AD PRN PO; Start 07/04/24 at 20:30; Stop 07/05/24 at 09:02; Status DC Potassium Chloride 40 meq ONCE ONCE PO Last administered on 07/04/24at 20:57; Start 07/04/24 at 21:00; Stop 07/04/24 at 21:01; Status DC Potassium Chloride 100 ml @ 100 mls/hr ONCE ONCE IV; Start 07/05/24 at 00:00; Stop 07/05/24 at 00:59; Status DC Alprazolam 0.25 mg ONCE ONCE PO Last administered on 07/04/24at 23:47; Start 07/04/24 at 23:00; Stop 07/04/24 at 23:01; Status DC Insulin Glargine 10 units DAILY SQ Last administered on 07/06/24at 09:12; Start 07/05/24 at 09:00; Stop 08/04/24 at 08:59 Metolazone 5 mg ONCE ONCE PO Last administered on 07/05/24at 09:24; Start 07/05/24 at 09:00; Stop 07/05/24 at 09:01; Status DC Potassium Chloride 10 meq AD PRN PO; Start 07/05/24 at 09:30; Stop 08/03/24 at 20:29 Atorvastatin Calcium 20 mg HS PO Last administered on 07/05/24at 22:36; Start 07/05/24 at 21:00; Stop 08/04/24 at 20:59 Dopamine HCl/ Dextrose 250 ml @ 0 mls/hr PROTOCOL IV; Start 07/05/24 at 13:00; Stop 07/05/24 at 13:48; Status DC Dobutamine HCl/ Dextrose 250 ml @ As Directed STK-MED ONCE IV Last administered on 07/05/24at 13:52; Start 07/05/24 at 13:36; Stop 07/05/24 at 13:41; Status DC Dobutamine HCl/ Dextrose 250 ml @ 0 mls/hr PROTOCOL IV; Start 07/05/24 at 14:00; Stop 07/06/24 at 10:18; Status DC Bumetanide 1 mg BID IVP Last administered on 07/06/24at 09:04; Start 07/06/24 at 09:00; Stop 08/03/24 at 13:29 Dobutamine HCl/ Dextrose 250 ml @ 0 mls/hr PROTOCOL IV; Start 07/06/24 at 10:30; Stop 07/06/24 at 11:33; Status DC Dobutamine HCl/ Dextrose 250 ml @ 0 mls/hr PROTOCOL IV Last administered on 07/06/24at 11:50; Start 07/06/24 at 12:00; Stop 08/05/24 at 11:59 Lactulose 20 gm BID PRN PO; Start 07/06/24 at 12:00; Stop 08/05/24 at 11:59 GUSTAVO PRUITT MD 07/07/24 0504: Agree, Bumex was tapered because of worsening renal function. Remains on dobutamine. Having issues with anxiety, doing well. Seen and examined around 8 PM. ATTESTATION I was involved substantially in the care of this patient Number and complexity of problems addressed: 1 acute illness with severe exacerbation Amount and or complexity of data Review of prior external note(s) from each unique source: 2+ Ordering of each unique test : 0 Review of the result(s) of each unique test: 2+ Assessment requiring an independent historian(s): No Independent interpretation of test performed by another MD/QHCP/appropriate source (not separately reported) : No Discussion of management or test interpretation with external MD/QHCP/appropriate source (not separately reported) : No Risk status (cardiac, billing related): MACY Lai Jul 06, 2024 13:26 GUSTAVO PRUITT MD Jul 07, 2024 05:04
--- NOTE | 2024-07-06 14:22 | PN ---
[facility] PROGRESS NOTE Date of Service: Jul 06, 2024 Time of Service: 14:15 SUBJECTIVE: 07/05 Pt seen at bedside, no acute events overnight. Shortness of breath has improved, however he still has orthopnea and cough. Lower extremities with 2+ pitting edema. Will continue with diuresis, further care per cardiology. He is hemodynamically stable. Creatinine improved from 2.0 down to 1.9, sodium decreased from 138 down to 130, remainder of his labs are relatively unremarkable. 07/06 Pt seen at bedside, no acute events overnight. He has no complaints today. Diuresing well with approximately 2.5L urine output in 24 hours, weight decreased from 91.1 down to 89.2kg. Creatinine increased from 1.9 up to 2.4, bumex decreased to 1mg BID, pt continues on dobutamine drip. Remainder of his labs are relatively unremarkable REVIEW OF SYSTEMS 12 point ROS negative unless noted in HPI PHYSICAL EXAM GENERAL APPEARANCE: The patient is awake, alert, and oriented, in no acute cardiopulmonary distress. NEUROLOGICAL: Cranial nerves II-XII grossly intact. Motor is 5/5 in bilateral upper and lower extremities proximal to distal. No sensory deficits. HEENT: Face is symmetric. Pupils are equal and reactive. Extraocular movements are intact. NECK: Supple. No JVD. No thyromegaly. No submental, submandibular, pre- /postauricular, occipital or supraclavicular lymphadenopathy. CHEST: Normal chest expansion. No Telemetry. LUNGS: bilateral lower lobe crackles CARDIOVASCULAR: Regular. S1 and S2 normal. No appreciable rubs, murmurs or gallops. ABDOMEN: Soft, nontender, and nondistended. There is no rebound, voluntary guarding, or rigidity. : Deferred. No Guillermo. EXTREMITIES: 2+ bilateral lower leg pitting edema. not cyanotic. No clubbing. Good capillary refill. SKIN: No skin breakdown. Vital Signs (last 8hr) Date Time Temp Pulse Resp B/P (MAP) Pulse Ox O2 Delivery O2 Flow Rate FiO2 07/06/24 12:50 119/74 07/06/24 12:10 97.7 110 18 119/74 94 Room Air 07/06/24 11:50 108/79 07/06/24 08:03 97.9 100 16 108/79 96 Room Air 07/06/24 08:00 96 Room Air* 0 21 07/06/24 06:29 95 18 07/06/24 06:28 95 18 N/A Room Air 21 LABS: Laboratory: Test 07/06/24 10:58 07/06/24 03:22 07/05/24 03:29 07/04/24 18:27 Range/Units Whole Blood Glucose 262 H 70-110 MG/DL White Blood Count 6.6 4.8-10.8 K/uL Red Blood Count 4.47 L 4.50-6.20 MIL/uL Hemoglobin 12.2 L 14.0-18.0 g/dL Hematocrit 38.1 L 42-54 % Mean Corpuscular Volume 85.2 79-99 fL Mean Corpuscular Hemoglobin 27.3 27.0-33.0 pg Mean Corpuscular Hemoglobin Concent 32.0 32.0-36.0 g/dL Red Cell Distribution Width 16.0 H 11.0-15.5 % Platelet Count 198 130-400 K/uL Mean Platelet Volume 10.7 H 7.5-10.5 fL Immature Granulocyte % (Auto) 0.3 0-1 % Neutrophils (%) (Auto) 68.9 40.0-77.0 % Lymphocytes (%) (Auto) 12.4 L 21.0-51.0 % Monocytes (%) (Auto) 15.0 H 3.0-13.0 % Eosinophils (%) (Auto) 2.6 0.0-8.0 % Basophils (%) (Auto) 0.8 0.0-5.0 % Neutrophils # (Auto) 4.5 1.8-7.7 K/uL Lymphocytes # (Auto) 0.8 L 1.0-4.8 K/uL Monocytes # (Auto) 1.0 0.1-1.0 K/uL Eosinophils # (Auto) 0.17 0.00-0.70 K/uL Basophils # (Auto) 0.05 0.00-0.20 K/uL Absolute Immature Granulocyte (auto 0.02 0-1 K/uL Nucleated Red Blood Cells 0.0 0.0-0.19 % White Cell Morphology Comment See comments Sodium Level 132 L 136-145 mmol/L Potassium Level 4.2 3.5-5.1 mmol/L Chloride Level 96 L 101-111 mmol/L Carbon Dioxide Level 36 H 21-32 mmol/L Blood Urea Nitrogen 40 H 7-18 mg/dL Creatinine 2.4 H 0.5-1.3 mg/dL Glomerular Filtration Rate Calc 30 >90 mL/min Random Glucose 183 H 70-105 mg/dL Total Calcium 8.8 8.5-10.1 mg/dL Phosphorus Level 4.4 2.5-4.9 mg/dL Magnesium Level 1.90 1.80-2.40 mg/dL Total Bilirubin 1.0 0.2-1.0 mg/dL Aspartate Amino Transf (AST/SGOT) 55 H 10-37 U/L Alanine Aminotransferase (ALT/SGPT) 52 12-78 U/L Alkaline Phosphatase 209 H 50-136 U/L Total Protein 7.8 6.0-8.3 g/dL Albumin 2.4 L 3.5-5.0 g/dL Free Thyroxine (T4) Direct 1.18 0.76-1.46 ng/dL Free Triiodothyronine (T3) pg/mL 1.98 L 2.18-3.98 pg/mL Test 07/04/24 14:17 Range/Units Influenza Type A Antigen Negative For Type A NEGATIVE Influenza Type B Antigen Negative For Type B NEGATIVE SARS-CoV-2, RNA, NAAT NEGATIVE SARS CoV-2 NEGATIVE Current Medications Medications (Trade) Dose Ordered Sig/Anjelica Route PRN Reason Start Time Stop Time Status Last Admin Dose Admin Acetaminophen (TYLenol 500MG TAB) 500 mg Q6H PRN PO MILD PAIN (1-3) 07/04/24 14:00 08/03/24 13:59 07/05/24 22:36 500 MG Aspirin (Aspirin 81mg Ec Tab) 81 mg DAILY PO 07/05/24 09:00 08/04/24 08:59 07/06/24 09:05 81 MG Atorvastatin Calcium (LIPItor 20MG) 20 mg HS PO 07/05/24 21:00 08/04/24 20:59 07/05/24 22:36 20 MG Budesonide (Pulmicort 0.5 Mg/2ml) 0.5 mg BIDRESP IH 07/04/24 18:00 08/03/24 17:59 07/06/24 06:27 0.5 MG Bumetanide (Bumex 1mg Vial) 1 mg BID IVP 07/06/24 09:00 08/03/24 13:29 07/06/24 09:04 1 MG Bumetanide (Bumex 1mg Vial) 1 mg Q8H IVP 07/04/24 13:30 07/06/24 08:38 DC 07/06/24 05:42 1 MG Dobutamine HCl/ Dextrose 250 ml @ 0 mls/hr PROTOCOL IV 07/05/24 14:00 07/06/24 10:18 DC Dobutamine HCl/ Dextrose 250 ml @ 0 mls/hr PROTOCOL IV 07/06/24 10:30 07/06/24 11:33 DC Dobutamine HCl/ Dextrose 250 ml @ 0 mls/hr PROTOCOL IV 07/06/24 12:00 08/05/24 11:59 07/06/24 11:50 12 MLS/HR Dopamine HCl/ Dextrose 250 ml @ 0 mls/hr PROTOCOL IV 07/05/24 13:00 07/05/24 13:48 DC Guaifenesin/ Dextromethorphan (RobiTUSSin DM 200/20MG 10ML) 10 ml Q6H PRN PO COUGH 07/04/24 13:30 08/03/24 13:29 Heparin Sodium (Porcine) (HEParin 5,000 UNIT VIAL) 5,000 unit ONCE SQ 07/04/24 13:00 07/04/24 13:37 DC 07/04/24 12:59 5,000 UNIT Insulin Glargine (LANtus 100 UNITS/ML 10 ML VIAL) 10 units DAILY SQ 07/05/24 09:00 08/04/24 08:59 07/06/24 09:12 10 UNITS Insulin Human Regular (humuLIN R 100 UNIT/ML 3ML) INSULIN SLIDING SCAL... ACHS SQ 07/04/24 16:30 08/03/24 16:29 07/06/24 11:51 5 UNIT Ipratropium [place] (AtrovENT UD) 0.5 mg Q6H PRN IH SHORTNESS OF BREATH 07/04/24 14:00 08/03/24 13:59 Lactulose (Constulose 20gm/ 30ml Udcup) 20 gm BID PRN PO CONSTIPATION 07/06/24 12:00 08/05/24 11:59 Losartan Potassium (CozAAR 25MG TAB) 25 mg DAILY PO 07/05/24 09:00 07/04/24 16:43 DC Magnesium Sulfate 50 ml @ 0 mls/hr PROTOCOL IV 07/04/24 14:00 08/03/24 13:59 07/05/24 06:20 25 MLS/HR Nitroglycerin (Nitrostat) 0.4 mg AD PRN SL CHEST PAIN 07/04/24 14:00 08/03/24 13:59 Ondansetron HCl (zoFRAN 4MG INJ) 4 mg Q6H PRN IVP NAUSEA/VOMITING 07/04/24 14:00 08/03/24 13:59 Potassium Chloride 100 ml @ 50 mls/hr AD PRN IV POTASSIUM PROTOCOL 07/04/24 20:30 08/03/24 20:29 Potassium Chloride (K-Dur 10meq Sr Tab) 10 meq AD PRN PO POTASSIUM PROTOCOL 07/05/24 09:30 08/03/24 20:29 Potassium Chloride (K-Dur/Klor-Con 20meq) 10 meq AD PRN PO POTASSIUM PROTOCOL 07/04/24 20:30 07/05/24 09:02 DC Potassium Chloride (KCl 10% Elixir 20meq/15ml) 10 meq AD PRN PO POTASSIUM PROTOCOL 07/04/24 20:30 08/03/24 20:29 07/05/24 01:20 10 MEQ DIAGNOSTICS / RADIOLOGY: [ ] ASSESSMENT: 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, POA Hx of severe suspected Ischemic Cardiomyopathy with LVEF less than 20%, POA Acute Hypoxemic respiratory failure with Cardiogenic Pulmonary edema, POA JOAQUÍN on CKD with Suspected underlying Cardiorenal Syndrome, POA Nephrotic range proteinuria, POA Elevated Troponin, likely due to CHF exacerbation and Demand Ischemia, r/o active ACS, POA Hx of Bilateral Vitreous Hemorrhage with legal blindness, POA Hx of Bilateral Cataracts of the eyes, POA diabetes mellitus type II A1c 9.6 - POA stage III chronic kidney disease - POA hyperlipidemia - POA hypertension - POA Right sided Pleural Effusion, POA cardiorenal syndrome - POA bilateral diabetic or hypertensive retinopathy bilateral diabetic neuropathy former smoker Uncontrolled Hypothyroidism, POA PLAN: Admit to PCCU Acute on chronic combined congestive heart failure exacerbation Severe CHF with EF less than 20 %, stage III diastolic dysfunction Hx of positive stress test in 02/27 Cardiogenic Pulmonary edema with right sided pleural effusion Rule out ACS - Cardiology consult. Appreciate recommendations - Decrease bumex to 1mg BID - Continue dobutamine drip to be managed by cardiology - Echo showing LVEF < 20% - Trend troponin to r/o active ACS - Hold beta blockers for now given low output state, hold MAKSIM due to JOAQUÍN on CKD - Nitrostat 0.4 mg prn for chest pain - Strict I & Os - Daily weight - Fluid restriction less than 1.5L in 24 hour - Heart healthy diet - Follow hemodynamics JOAQUÍN on CKD Suspected Cardiorenal syndrome Stage III chronic kidney disease Diabetes type II A1c 9.6 Bilateral diabetic/hypertensive retinopathy Bilateral diabetic neuropathy Hypertension -Nephrology consult. Appreciate recommendations - renal ultrasound - Urine protein - Urine creatine - Strict monitoring of intake, output and overall fluid balance - Daily weights - Avoid nephrotoxic medications to the extent possible - Monitor electrolytes and replace as needed - Medications to be dosed according to renal function - Avoid contrast if possible - Maintain blood glucose between 100-180 at all times - Basal Lantus 10 units - Insulin sliding scale for blood glucose management - Hypoglycemia and hyperglycemia protocol in place Acute Hypoxic Respiratory due to Pulmonary edema Right sided Pleural Effusion as per chest xray 07/04/24 c/w IV diuresis No evidence of reactive airway disease, discontinue nebulizer treatments Hx of Bilateral vitreous hemorrhage with legal blindness Hx of bilateral cataracts Hx of retinopathy of bilateral eyes - Patient reports that his vision worsened after receiving anticoagulation and antiplatelet therapy in [facility] [place], he wants to hold off on heparin gtt or full dose Lovenox. I spoke with Dr. Nolan with Ophthalmology who stated that patient has been legally blind since 08/28. Per her, we can proceed with antiplatelet/ anticoagulation as benefits of treating his cardiac comorbidities outweigh the risk of worsening his vision. Patient still wants to hold off on a/c as he worried about losing his vision. Per Dr. Nolan, she may evaluate him [place] [facility] [place] in the next 2-3 days, if unable to, she recommended close ooutpatient follow up with Ophthalmology in clinic Hyperlipidemia - Atorvastatin 20 mg HS - Zofran 4mg q6h prn nausea - Acetaminophen 500 mg PO q6h for pain - DVT prophylaxis - SCD's of bilateral legs - PT/OT - Repeat Labs in the AM - Repeat Chest Xray in the AM - Follow further medical management per Nephrology and Cardiology recommendations Disposition: Pending diuresis, possible heart cath, improvement in renal function SIDDHARTHA JOHNSON MD Jul 06, 2024 14:22
[2024-07-06] MEDS: ALPRAZolam 0.25 MG TABLET PO ONE (23:06)
[2024-07-07] VITALS (8 sets, daily range): BP systolic 101–129; BP diastolic 68–84; PULSE 99–128; RESP 18; TEMP 97.5–99.5; O2SAT 96
[2024-07-07 05:11] LABS: BASOPHILS # (AUTO) 0.03 K/uL (0.00-0.20); BASOPHILS % (AUTO) 0.4 % (0.0-5.0); EOSINOPHILS # (AUTO) 0.19 K/uL (0.00-0.70); EOSINOPHILS % (AUTO) 2.6 % (0.0-8.0); HEMATOCRIT 37.2 % (42-54); IMMATURE GRANULOCYTE ABSOLUTE 0.02 K/uL (0-1); LYMPHOCYTES # (AUTO) 1.1 K/uL (1.0-4.8); LYMPHOCYTES % (AUTO) 15.7 % (21.0-51.0); MEAN CORPUSCULAR HEMOGLOBIN 26.7 pg (27.0-33.0); MEAN CORPUSCULAR VOLUME 83.4 fL (79-99); MONOCYTES # (AUTO) 1.2 K/uL (0.1-1.0); MONOCYTES % (AUTO) 16.4 % (3.0-13.0); NEUTROPHILS # (AUTO) 4.7 K/uL (1.8-7.7); NEUTROPHILS % (AUTO) 64.6 % (40.0-77.0); PLATELET COUNT (AUTO) 218 K/uL (130-400); RED BLOOD CELL COUNT(AUTO) 4.46 MIL/uL (4.50-6.20); RED CELL DISTRIBUTION WIDTH 15.9 % (11.0-15.5); WHITE BLOOD COUNT (AUTO) 7.3 K/uL (4.8-10.8)
[2024-07-07 05:25] LABS: CREATININE 2.1 mg/dL (0.5-1.3); POTASSIUM 3.1 mmol/L (3.5-5.1)
--- NOTE | 2024-07-07 10:36 | PN ---
CARDIOLOGY Reason for consult: CHF HPI/story at presentation: This is a pleasant 64-year-old male with past medical history of the present with complaints of shortness of breath, was diagnosed with CHF exacerbation cardiology was consulted for further evaluation management. Known history of cardiomyopathy, ejection fraction 15 to 20% with previous stress testing with no ischemia or infarction pattern, 02/2024 he has been noncompliant with Lasix at home, here for further eval Management Subjective: 07/04/2024, shortness of breath, lower extremity edema feeling better 07/06/2024 patient seen and evaluated at bedside No events were reported overnight Patient reports overall feeling better today Continues on IV dobutamine at 2.5 Past medical history: See below Allergies, Meds See chart Review of systems Review of Systems Constitutional: Negative for chills and fever. HENT: Negative for ear discharge and ear pain. Eyes: Negative for photophobia and discharge. Respiratory: Negative for cough, sputum production and stridor. Cardiovascular: Negative for chest pain and palpitations. Gastrointestinal: Negative for diarrhea and vomiting. Genitourinary: Negative for frequency. Musculoskeletal: Negative for myalgias. Skin: Negative for rash. Neurological: Negative for focal weakness and seizures. Endo/Heme/Allergies: Negative for polydipsia. Psychiatric/Behavioral: Negative for hallucinations. Vitals see chart PHYSICAL EXAMINATION GENERAL: The patient is alert and oriented*3 HEENT: Nonicteric sclerae, non traumatic HEART: Regular rate and rhythm with no murmurs LUNGS: Clear to auscultation bilaterally ABDOMEN: No acute issues, non tender GENITAL, RECTAL: deferred SKIN: No rash NEUROLOGIC: NFND EXTREMITIES:EDEMA 06/2024 ASSESSMENT EXACERBATION OF CHF Noncompliant with diuretics at home History of suspected ischemic cardiomyopathy Stress test with infarction pattern, 02/2024 Ejection fraction of 15 to 20%, 06/2024 On diuresis with Bumex, 06/2024 Normal venous Dopplers, 06/2024 NSTEMI Initial troponin of 1600, trending down HEMATURIA Moderate hematuria, 06/2024 CHRONIC KIDNEY DISEASE Stage III 1.8 at presentation Creatinine at discharge from hospital, 06/2024 was 2.2 HYPERTENSION HYPERLIPIDEMIA DIABETES, TOBACCO USE CORE MEASURES Not on guideline directed medical therapy for cardiomyopathy given renal dysfunction OTHER MEDICAL PROBLEMS Anxiety disorder Diabetic neuropathy PLAN 07/04/2024 patient with NSTEMI, CHF exacerbation at presentation. Although type II elevation is possible, given presentation, will need to ensure that he does not have underlying ACS. EKG with non specific changes and no chest pain. Ideally, needs to be on anticoagulation with heparin to help with potential ACS. However, at this time, patient is concerned about increased retinal bleeding with anticoagulation and had not been on antiplatelets or anticoagulants before for the same reason. Although risk of myocardial injury is a concern, troponins are trending down and given risk of visual loss, after extensive discussion with the patient, plan is not to anticoagulate at this time. Will repeat echocardiogram to reassess ejection fraction. Post diuresis, may consider ischemic evaluation as needed. Also, underlying cardiorenal syndrome and therefore, may need dobutamine support for diuresis. Will follow closely 07/05/2024 breathing better, -600 on output, Remains on Bumex 3 times daily, also got a dose of metolazone this morning, potassium is being replaced. Will add a small dose of dobutamine to help with diuresis. Do not titrate and leave at 2.5. Hopefully, this helps his renal function as well. Primary team reached out to ophthalmology on-call and per ophthalmology, may consider anticoagulation if needed/antithrombotics if needed in spite of previous history of vitreal hemorrhage and proliferative retinopathy given risk and benefit. Patient himself would like to stay of antithrombotics if possible. Troponins have trended down and at this time, plan remains to stay off anticoagulation. Will consider coronary angiography prior to discharge depending on renal function and clinical course. Continue diuresis. 07/06/2024 patient is Bumex was decreased to every 12 hours. Attempted to increase dobutamine drip to 5. The patient experienced sinus tachycardia rate of 120 to 130 shortly after. Dobutamine drip was decreased back to 2.5. Creatinine increased to 2.4 today. Continue with Nephrology recommendations Repeat BMP in the AM Avoid any nephrotoxic medications as possible Will discuss coronary angiogram if renal function improves. ; Agree, Bumex was tapered because of worsening renal function. Remains on dobutamine. Having issues with anxiety, doing well. Seen and examined around 8 PM. 07/07/2024 Doing well, ongoing diuresis, issues with anxiety yesterday but has done well. Did receive a dose of Xanax yesterday. Continues to diurese, edema still present. Remains on dobutamine at 2.5. Creatinine today is better at 2.1. Continue current Bumex and dobutamine regimen. Plans remain for eventual cardiac catheterization once renal function improves and diuresis is complete. No plans for anticoagulation as above. ATTESTATION I was involved substantially in the care of this patient Number and complexity of problems addressed: 1 acute illness with severe exacerbation Amount and or complexity of data Review of prior external note(s) from each unique source: 2+ Ordering of each unique test : 0 Review of the result(s) of each unique test: 2+ Assessment requiring an independent historian(s): No Independent interpretation of test performed by another MD/QHCP/appropriate source (not separately reported) : No Discussion of management or test interpretation with external MD/QHCP/appropriate source (not separately reported) : No Risk status (cardiac, billing related): High Vitals/Labs Vital Signs Date Time Temp Pulse Resp B/P (MAP) Pulse Ox O2 Delivery O2 Flow Rate FiO2 07/07/24 08:30 96 Room Air* 0 21 07/07/24 08:14 99.5 119 18 121/74 Laboratory Tests 07/07/24 04:45 Medications Current Medications Aspirin 325 mg ONCE ONCE PO Last administered on 07/04/24at 12:59; Start 07/04/24 at 13:00; Stop 07/04/24 at 13:01; Status DC Heparin Sodium (Porcine) 5,000 unit ONCE SQ Last administered on 07/04/24at 12:59; Start 07/04/24 at 13:00; Stop 07/04/24 at 13:37; Status DC Guaifenesin/ Dextromethorphan 10 ml Q6H PRN PO; Start 07/04/24 at 13:30; Stop 08/03/24 at 13:29 Bumetanide 1 mg Q8H IVP Last administered on 07/06/24at 05:42; Start 07/04/24 at 13:30; Stop 07/06/24 at 08:38; Status DC Insulin Human Regular INSULIN SLIDING SCAL... ACHS SQ Last administered on 07/06/24at 21:21; Start 07/04/24 at 16:30; Stop 08/03/24 at 16:29 Magnesium Sulfate 50 ml @ 0 mls/hr PROTOCOL IV Last administered on 07/05/24at 06:20; Start 07/04/24 at 14:00; Stop 08/03/24 at 13:59 Acetaminophen 500 mg Q6H PRN PO Last administered on 07/06/24at 14:35; Start 07/04/24 at 14:00; Stop 08/03/24 at 13:59 Ondansetron HCl 4 mg Q6H PRN IVP; Start 07/04/24 at 14:00; Stop 08/03/24 at 13:59 Ipratropium [place] 0.5 mg Q6H PRN IH; Start 07/04/24 at 14:00; Stop 07/06/24 at 14:21; Status DC Budesonide 0.5 mg BIDRESP IH Last administered on 07/06/24at 06:27; Start 07/04/24 at 18:00; Stop 07/06/24 at 14:21; Status DC Aspirin 81 mg DAILY PO Last administered on 07/07/24at 08:23; Start 07/05/24 at 09:00; Stop 08/04/24 at 08:59 Nitroglycerin 0.4 mg AD PRN SL; Start 07/04/24 at 14:00; Stop 08/03/24 at 13:59 Losartan Potassium 25 mg DAILY PO; Start 07/05/24 at 09:00; Stop 07/04/24 at 16:43; Status DC Potassium Chloride 100 ml @ 50 mls/hr AD PRN IV; Start 07/04/24 at 20:30; Stop 08/03/24 at 20:29 Potassium Chloride 10 meq AD PRN PO Last administered on 07/07/24at 08:24; Start 07/04/24 at 20:30; Stop 08/03/24 at 20:29 Potassium Chloride 10 meq AD PRN PO; Start 07/04/24 at 20:30; Stop 07/05/24 at 09:02; Status DC Potassium Chloride 40 meq ONCE ONCE PO Last administered on 07/04/24at 20:57; Start 07/04/24 at 21:00; Stop 07/04/24 at 21:01; Status DC Potassium Chloride 100 ml @ 100 mls/hr ONCE ONCE IV; Start 07/05/24 at 00:00; Stop 07/05/24 at 00:59; Status DC Alprazolam 0.25 mg ONCE ONCE PO Last administered on 07/04/24at 23:47; Start 07/04/24 at 23:00; Stop 07/04/24 at 23:01; Status DC Insulin Glargine 10 units DAILY SQ Last administered on 07/07/24at 08:41; Start 07/05/24 at 09:00; Stop 08/04/24 at 08:59 Metolazone 5 mg ONCE ONCE PO Last administered on 07/05/24at 09:24; Start 07/05/24 at 09:00; Stop 07/05/24 at 09:01; Status DC Potassium Chloride 10 meq AD PRN PO; Start 07/05/24 at 09:30; Stop 08/03/24 at 20:29 Atorvastatin Calcium 20 mg HS PO Last administered on 07/06/24at 21:23; Start 07/05/24 at 21:00; Stop 08/04/24 at 20:59 Dopamine HCl/ Dextrose 250 ml @ 0 mls/hr PROTOCOL IV; Start 07/05/24 at 13:00; Stop 07/05/24 at 13:48; Status DC Dobutamine HCl/ Dextrose 250 ml @ As Directed STK-MED ONCE IV Last administered on 07/05/24at 13:52; Start 07/05/24 at 13:36; Stop 07/05/24 at 13:41; Status DC Dobutamine HCl/ Dextrose 250 ml @ 0 mls/hr PROTOCOL IV; Start 07/05/24 at 14:00; Stop 07/06/24 at 10:18; Status DC Bumetanide 1 mg BID IVP Last administered on 07/07/24at 08:24; Start 07/06/24 at 09:00; Stop 08/03/24 at 13:29 Dobutamine HCl/ Dextrose 250 ml @ 0 mls/hr PROTOCOL IV; Start 07/06/24 at 10:30; Stop 07/06/24 at 11:33; Status DC Dobutamine HCl/ Dextrose 250 ml @ 0 mls/hr PROTOCOL IV Last administered on 07/06/24at 11:50; Start 07/06/24 at 12:00; Stop 08/05/24 at 11:59 Lactulose 20 gm BID PRN PO; Start 07/06/24 at 12:00; Stop 08/05/24 at 11:59 Alprazolam 0.25 mg ONCE ONCE PO Last administered on 07/06/24at 23:06; Start 07/06/24 at 23:00; Stop 07/06/24 at 23:01; Status DC GUSTAVO PRUITT MD Jul 07, 2024 10:36
--- NOTE | 2024-07-07 10:52 | PN ---
SUBJECTIVE: A 64-year-old male with history of cardiomyopathy. The patient initially presented with anasarca. The patient has had acute on chronic renal failure in the hospital. Creatinine has been elevated. The patient's pulmonary symptoms have improved. He remains on the IV diuretics. The patient's weight is declined by 3 kilos since admission and he is being seen for all of the above. REVIEW OF SYSTEMS: GENERAL: He is feeling somewhat improved. HEENT: No change in vision. No change in hearing. CARDIOVASCULAR: There is no current chest pains or palpitations. PULMONARY: His shortness of breath is improved. GASTROINTESTINAL: He is tolerating a diet. MUSCULOSKELETAL: Complains of weakness. PHYSICAL EXAMINATION: VITAL SIGNS: Blood pressure 121/74, pulse in the 100s. GENERAL: He is a chronically ill male, much older than appearing. HEENT: Head is atraumatic. Pupils equal, roving to light. Oropharynx is without exudate. Nares clear. NECK: There is no JVP. There is no thyromegaly, no mass. CARDIOVASCULAR: Regular. There is no S3, S4 gallop. LUNGS: Coarse with equal thoracic movement. ABDOMEN: Soft, nondistended, nontender. EXTREMITIES: Reveal no clubbing, no cyanosis. NEUROLOGIC: He is awake. He is alert. LABORATORY DATA: Sodium 131, potassium is 3, BUN 42, creatinine is 2. Hemoglobin 11, hematocrit 37. IMPRESSION: * Renal dysfunction. * Cardiomyopathy. * Diabetes mellitus. * Hypertension. PLAN: The patient's creatinine has stabilized overnight. He remains on the diuretics. Workup is ongoing per Cardiology. The patient's electrolytes have all been aggressively repleted. We will continue to follow closely. Labs can be repeated in the morning. TID: [id number] RECEIPT: [id number]
--- NOTE | 2024-07-07 17:55 | PN ---
[facility] PROGRESS NOTE Date of Service: Jul 07, 2024 Time of Service: 17:49 SUBJECTIVE: 07/05 Pt seen at bedside, no acute events overnight. Shortness of breath has improved, however he still has orthopnea and cough. Lower extremities with 2+ pitting edema. Will continue with diuresis, further care per cardiology. He is hemodynamically stable. Creatinine improved from 2.0 down to 1.9, sodium decreased from 138 down to 130, remainder of his labs are relatively unremarkable. 07/06 Pt seen at bedside, no acute events overnight. He has no complaints today. Diuresing well with approximately 2.5L urine output in 24 hours, weight decreased from 91.1 down to 89.2kg. Creatinine increased from 1.9 up to 2.4, bumex decreased to 1mg BID, pt continues on dobutamine drip. Remainder of his labs are relatively unremarkable 07/07 Pt seen at bedside, no acute events overnight. He remains tachycardic, HR in the 120s. He continues to diurese, continue bumex 1mg BID per cardiology. Sodium stable at 131, similar to yesterday, potassium improved from 3.1 up to 3.5 with repletion, will continue to trend, creatinine decreased from 2.4 down to 2.1. Discussed with cardiology who believes the tachycardia is secondary to dobutamine however it is helping with the renal functio and would like to continue overnight and reassess renal function in the am. If improving will likely wean off the dobutamine. REVIEW OF SYSTEMS 12 point ROS negative unless noted in HPI PHYSICAL EXAM GENERAL APPEARANCE: The patient is awake, alert, and oriented, in no acute cardiopulmonary distress. NEUROLOGICAL: Cranial nerves II-XII grossly intact. Motor is 5/5 in bilateral upper and lower extremities proximal to distal. No sensory deficits. HEENT: Face is symmetric. Pupils are equal and reactive. Extraocular movements are intact. NECK: Supple. No JVD. No thyromegaly. No submental, submandibular, pre- /postauricular, occipital or supraclavicular lymphadenopathy. CHEST: Normal chest expansion. No Telemetry. LUNGS: bilateral lower lobe crackles CARDIOVASCULAR: Regular. S1 and S2 normal. No appreciable rubs, murmurs or gallops. ABDOMEN: Soft, nontender, and nondistended. There is no rebound, voluntary guarding, or rigidity. : Deferred. No Guillermo. EXTREMITIES: 2+ bilateral lower leg pitting edema. not cyanotic. No clubbing. Good capillary refill. SKIN: No skin breakdown. Vital Signs (last 8hr) Date Time Temp Pulse Resp B/P (MAP) Pulse Ox O2 Delivery O2 Flow Rate FiO2 07/07/24 12:34 121/68 07/07/24 12:32 97.5 124 18 121/68 95 Room Air 07/07/24 11:34 118/69 LABS: Laboratory: Test 07/07/24 16:25 07/07/24 15:49 07/07/24 04:45 07/06/24 03:22 Range/Units Potassium Level 3.5 3.5-5.1 mmol/L Whole Blood Glucose 230 H 70-110 MG/DL White Blood Count 7.3 4.8-10.8 K/uL Red Blood Count 4.46 L 4.50-6.20 MIL/uL Hemoglobin 11.9 L 14.0-18.0 g/dL Hematocrit 37.2 L 42-54 % Mean Corpuscular Volume 83.4 79-99 fL Mean Corpuscular Hemoglobin 26.7 L 27.0-33.0 pg Mean Corpuscular Hemoglobin Concent 32.0 32.0-36.0 g/dL Red Cell Distribution Width 15.9 H 11.0-15.5 % Platelet Count 218 130-400 K/uL Mean Platelet Volume 10.3 7.5-10.5 fL Immature Granulocyte % (Auto) 0.3 0-1 % Neutrophils (%) (Auto) 64.6 40.0-77.0 % Lymphocytes (%) (Auto) 15.7 L 21.0-51.0 % Monocytes (%) (Auto) 16.4 H 3.0-13.0 % Eosinophils (%) (Auto) 2.6 0.0-8.0 % Basophils (%) (Auto) 0.4 0.0-5.0 % Neutrophils # (Auto) 4.7 1.8-7.7 K/uL Lymphocytes # (Auto) 1.1 1.0-4.8 K/uL Monocytes # (Auto) 1.2 H 0.1-1.0 K/uL Eosinophils # (Auto) 0.19 0.00-0.70 K/uL Basophils # (Auto) 0.03 0.00-0.20 K/uL Absolute Immature Granulocyte (auto 0.02 0-1 K/uL Nucleated Red Blood Cells 0.0 0.0-0.19 % Sodium Level 131 L 136-145 mmol/L Chloride Level 93 L 101-111 mmol/L Carbon Dioxide Level 35 H 21-32 mmol/L Blood Urea Nitrogen 42 H 7-18 mg/dL Creatinine 2.1 H 0.5-1.3 mg/dL Glomerular Filtration Rate Calc 35 >90 mL/min Random Glucose 122 H 70-105 mg/dL Total Calcium 8.8 8.5-10.1 mg/dL White Cell Morphology Comment See comments Phosphorus Level 4.4 2.5-4.9 mg/dL Magnesium Level 1.90 1.80-2.40 mg/dL Current Medications Medications (Trade) Dose Ordered Sig/Anjelica Route PRN Reason Start Time Stop Time Status Last Admin Dose Admin Acetaminophen (TYLenol 500MG TAB) 500 mg Q6H PRN PO MILD PAIN (1-3) 07/04/24 14:00 08/03/24 13:59 07/06/24 14:35 500 MG Aspirin (Aspirin 81mg Ec Tab) 81 mg DAILY PO 07/05/24 09:00 08/04/24 08:59 07/07/24 08:23 81 MG Atorvastatin Calcium (LIPItor 20MG) 20 mg HS PO 07/05/24 21:00 08/04/24 20:59 07/06/24 21:23 20 MG Budesonide (Pulmicort 0.5 Mg/2ml) 0.5 mg BIDRESP IH 07/04/24 18:00 07/06/24 14:21 DC 07/06/24 06:27 0.5 MG Bumetanide (Bumex 1mg Vial) 1 mg BID IVP 07/06/24 09:00 08/03/24 13:29 07/07/24 08:24 1 MG Bumetanide (Bumex 1mg Vial) 1 mg Q8H IVP 07/04/24 13:30 07/06/24 08:38 DC 07/06/24 05:42 1 MG Dobutamine HCl/ Dextrose 250 ml @ 0 mls/hr PROTOCOL IV 07/05/24 14:00 07/06/24 10:18 DC Dobutamine HCl/ Dextrose 250 ml @ 0 mls/hr PROTOCOL IV 07/06/24 10:30 07/06/24 11:33 DC Dobutamine HCl/ Dextrose 250 ml @ 0 mls/hr PROTOCOL IV 07/06/24 12:00 08/05/24 11:59 07/07/24 11:34 13.37 MLS/HR Dopamine HCl/ Dextrose 250 ml @ 0 mls/hr PROTOCOL IV 07/05/24 13:00 07/05/24 13:48 DC Guaifenesin/ Dextromethorphan (RobiTUSSin DM 200/20MG 10ML) 10 ml Q6H PRN PO COUGH 07/04/24 13:30 08/03/24 13:29 Heparin Sodium (Porcine) (HEParin 5,000 UNIT VIAL) 5,000 unit ONCE SQ 07/04/24 13:00 07/04/24 13:37 DC 07/04/24 12:59 5,000 UNIT Insulin Glargine (LANtus 100 UNITS/ML 10 ML VIAL) 10 units DAILY SQ 07/05/24 09:00 08/04/24 08:59 07/07/24 08:41 10 UNITS Insulin Human Regular (humuLIN R 100 UNIT/ML 3ML) INSULIN SLIDING SCAL... ACHS SQ 07/04/24 16:30 08/03/24 16:29 07/07/24 16:56 4 UNIT Ipratropium [place] (AtrovENT UD) 0.5 mg Q6H PRN IH SHORTNESS OF BREATH 07/04/24 14:00 07/06/24 14:21 DC Lactulose (Constulose 20gm/ 30ml Udcup) 20 gm BID PRN PO CONSTIPATION 07/06/24 12:00 08/05/24 11:59 Losartan Potassium (CozAAR 25MG TAB) 25 mg DAILY PO 07/05/24 09:00 07/04/24 16:43 DC Magnesium Sulfate 50 ml @ 0 mls/hr PROTOCOL IV 07/04/24 14:00 08/03/24 13:59 07/05/24 06:20 25 MLS/HR Nitroglycerin (Nitrostat) 0.4 mg AD PRN SL CHEST PAIN 07/04/24 14:00 08/03/24 13:59 Ondansetron HCl (zoFRAN 4MG INJ) 4 mg Q6H PRN IVP NAUSEA/VOMITING 07/04/24 14:00 08/03/24 13:59 Potassium Chloride 100 ml @ 50 mls/hr AD PRN IV POTASSIUM PROTOCOL 07/04/24 20:30 08/03/24 20:29 Potassium Chloride (K-Dur 10meq Sr Tab) 10 meq AD PRN PO POTASSIUM PROTOCOL 07/05/24 09:30 08/03/24 20:29 Potassium Chloride (K-Dur/Klor-Con 20meq) 10 meq AD PRN PO POTASSIUM PROTOCOL 07/04/24 20:30 07/05/24 09:02 DC Potassium Chloride (KCl 10% Elixir 20meq/15ml) 10 meq AD PRN PO POTASSIUM PROTOCOL 07/04/24 20:30 08/03/24 20:29 07/07/24 10:44 10 MEQ DIAGNOSTICS / RADIOLOGY: [ ] ASSESSMENT: 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, POA Hx of severe suspected Ischemic Cardiomyopathy with LVEF less than 20%, POA Acute Hypoxemic respiratory failure with Cardiogenic Pulmonary edema, POA JOAQUÍN on CKD with Suspected underlying Cardiorenal Syndrome, POA Nephrotic range proteinuria, POA Elevated Troponin, likely due to CHF exacerbation and Demand Ischemia, r/o active ACS, POA Hx of Bilateral Vitreous Hemorrhage with legal blindness, POA Hx of Bilateral Cataracts of the eyes, POA diabetes mellitus type II A1c 9.6 - POA stage III chronic kidney disease - POA hyperlipidemia - POA hypertension - POA Right sided Pleural Effusion, POA cardiorenal syndrome - POA bilateral diabetic or hypertensive retinopathy bilateral diabetic neuropathy former smoker Uncontrolled Hypothyroidism, POA PLAN: Admit to [facility] Acute on chronic combined congestive heart failure exacerbation Severe CHF with EF less than 20 %, stage III diastolic dysfunction Hx of positive stress test in 02/27 Cardiogenic Pulmonary edema with right sided pleural effusion Rule out ACS - Cardiology consult. Appreciate recommendations - Decrease bumex to 1mg BID - Continue dobutamine drip to be managed by cardiology - Echo showing LVEF < 20% - Trend troponin to r/o active ACS - Hold beta blockers for now given low output state, hold MAKSIM due to JOAQUÍN on CKD - Nitrostat 0.4 mg prn for chest pain - Strict I & Os - Daily weight - Fluid restriction less than 1.5L in 24 hour - Heart healthy diet - Follow hemodynamics JOAQUÍN on CKD Suspected Cardiorenal syndrome Stage III chronic kidney disease Diabetes type II A1c 9.6 Bilateral diabetic/hypertensive retinopathy Bilateral diabetic neuropathy Hypertension -Nephrology consult. Appreciate recommendations - renal ultrasound - Urine protein - Urine creatine - Strict monitoring of intake, output and overall fluid balance - Daily weights - Avoid nephrotoxic medications to the extent possible - Monitor electrolytes and replace as needed - Medications to be dosed according to renal function - Avoid contrast if possible - Maintain blood glucose between 100-180 at all times - Basal Lantus 10 units - Insulin sliding scale for blood glucose management - Hypoglycemia and hyperglycemia protocol in place Acute Hypoxic Respiratory due to Pulmonary edema Right sided Pleural Effusion as per chest xray 07/04/24 c/w IV diuresis No evidence of reactive airway disease, discontinue nebulizer treatments Hx of Bilateral vitreous hemorrhage with legal blindness Hx of bilateral cataracts Hx of retinopathy of bilateral eyes - Patient reports that his vision worsened after receiving anticoagulation and antiplatelet therapy in [facility], he wants to hold off on heparin gtt or full dose Lovenox. I spoke with Dr. Nolan with Ophthalmology who stated that patient has been legally blind since 08/28. Per her, we can proceed with antiplatelet/ anticoagulation as benefits of treating his cardiac comorbidities outweigh the risk of worsening his vision. Patient still wants to hold off on a/c as he worried about losing his vision. Per Dr. Nolan, she may evaluate him in [facility] [place] in the next 2-3 days, if unable to, she recommended close ooutpatient follow up with Ophthalmology in clinic Hyperlipidemia - Atorvastatin 20 mg HS - Zofran 4mg q6h prn nausea - Acetaminophen 500 mg PO q6h for pain - DVT prophylaxis - SCD's of bilateral legs - PT/OT - Repeat Labs in the AM - Repeat Chest Xray in the AM - Follow further medical management per Nephrology and Cardiology recommendations Disposition: Pending diuresis, possible heart cath, improvement in renal function SIDDHARTHA JOHNSON MD Jul 07, 2024 17:55
[2024-07-07] MEDS: ALPRAZolam 0.25 MG TABLET PO ONE (23:42)
[2024-07-08] VITALS (8 sets, daily range): BP systolic 115–120; BP diastolic 61–83; PULSE 94–117; RESP 18–20; TEMP 97.5–98.5; O2SAT 96–97
[2024-07-08 04:09] LABS: BASOPHILS # (AUTO) 0.05 K/uL (0.00-0.20); BASOPHILS % (AUTO) 0.8 % (0.0-5.0); EOSINOPHILS # (AUTO) 0.21 K/uL (0.00-0.70); EOSINOPHILS % (AUTO) 3.2 % (0.0-8.0); HEMATOCRIT 37.1 % (42-54); IMMATURE GRANULOCYTE ABSOLUTE 0.02 K/uL (0-1); LYMPHOCYTES # (AUTO) 1.1 K/uL (1.0-4.8); LYMPHOCYTES % (AUTO) 16.3 % (21.0-51.0); MEAN CORPUSCULAR HEMOGLOBIN 27.2 pg (27.0-33.0); MEAN CORPUSCULAR HGB CONC 32.3 g/dL (32.0-36.0); MEAN CORPUSCULAR VOLUME 84.1 fL (79-99); MONOCYTES # (AUTO) 1.2 K/uL (0.1-1.0); MONOCYTES % (AUTO) 18.1 % (3.0-13.0); NEUTROPHILS % (AUTO) 61.3 % (40.0-77.0); PLATELET COUNT (AUTO) 210 K/uL (130-400); RED BLOOD CELL COUNT(AUTO) 4.41 MIL/uL (4.50-6.20); RED CELL DISTRIBUTION WIDTH 15.9 % (11.0-15.5); WHITE BLOOD COUNT (AUTO) 6.6 K/uL (4.8-10.8)
[2024-07-08 04:31] LABS: CREATININE 2.1 mg/dL (0.5-1.3); POTASSIUM 3.5 mmol/L (3.5-5.1)
[2024-07-08] MEDS: PoTASSium chloRIDE 10MEQ SR 10 MEQ/TAB TAB.SR.24H PO PRN (04:55)
--- NOTE | 2024-07-08 08:29 | HMCIMG ---
PORTABLE CHEST RADIOGRAPH INDICATION: volume overload COMPARISON: 07/05/2024 FINDINGS: live study manager leads overlie the field of view. Heart size is normal. The pulmonary vascularity and florencio appear normal. Right hemidiaphragm is elevated. Right infrahilar and right lung base linear opacities without consolidation. Right costophrenic angle is nominally blunted. No pneumothorax detected. IMPRESSION: Right infrahilar/right lung base atelectasis and trace right pleural fluid, without pulmonary vascular congestion.
--- NOTE | 2024-07-08 13:02 | PN ---
FOLLOWUP PROGRESS NOTE SUBJECTIVE: A 64-year-old male with a history of end-stage cardiomyopathy. The patient initially presented with the heart failure. The patient started on the diuretics. The patient has had acute on chronic renal dysfunction in the hospital. The patient is being seen for all of the above. The patient's weight is declined by 8 kilos while in the hospital and he is being seen for all of the above. REVIEW OF SYSTEMS: GENERAL: He is feeling improved. HEENT: No change in vision. No change in hearing. CARDIOVASCULAR: No current chest pains or palpitations. PULMONARY: Shortness of breath is improved. GASTROINTESTINAL: He is tolerating a diet. MUSCULOSKELETAL: Complains of swelling. PHYSICAL EXAMINATION: VITAL SIGNS: Blood pressure 117/82, pulse in the 100s. GENERAL: He is a chronically ill male, older than appearing. SKIN: Head is atraumatic. Pupils equal, roving to light. Oropharynx is without exudate. Nares clear. NECK: There is no JVP. There is no thyromegaly, no mass. CARDIOVASCULAR: Regular. There is no S3, S4 gallop. LUNGS: Coarse with equal thoracic movement. ABDOMEN: Soft, nondistended, nontender. EXTREMITIES: Reveal no clubbing, no cyanosis. NEUROLOGIC: He is awake. He is alert. LABORATORY DATA: Sodium 134, potassium is 3, BUN 41, creatinine is 2. Hemoglobin 12, hematocrit 37. IMPRESSION: * Acute on chronic renal failure. * Severe cardiomyopathy. * Electrolyte abnormalities. * Diabetes mellitus. PLAN: The patient's urine output continues to improve. The patient's potassium has been aggressively repleted. The patient's creatinine of 2.1 mg/dl essentially the patient's pain is baseline. He remains on the dobutamine. We will continue to follow closely. Once the patient is discharged, he can follow up in the [facility]. TID: [id number] RECEIPT: [id number]
--- NOTE | 2024-07-08 14:32 | PN ---
[facility] PROGRESS NOTE Date of Service: Jul 08, 2024 Time of Service: 14:26 SUBJECTIVE: 07/05 Pt seen at bedside, no acute events overnight. Shortness of breath has improved, however he still has orthopnea and cough. Lower extremities with 2+ pitting edema. Will continue with diuresis, further care per cardiology. He is hemodynamically stable. Creatinine improved from 2.0 down to 1.9, sodium decreased from 138 down to 130, remainder of his labs are relatively unremarkable. 07/06 Pt seen at bedside, no acute events overnight. He has no complaints today. Diuresing well with approximately 2.5L urine output in 24 hours, weight decreased from 91.1 down to 89.2kg. Creatinine increased from 1.9 up to 2.4, bumex decreased to 1mg BID, pt continues on dobutamine drip. Remainder of his labs are relatively unremarkable 07/07 Pt seen at bedside, no acute events overnight. He remains tachycardic, HR in the 120s. He continues to diurese, continue bumex 1mg BID per cardiology. Sodium stable at 131, similar to yesterday, potassium improved from 3.1 up to 3.5 with repletion, will continue to trend, creatinine decreased from 2.4 down to 2.1. Discussed with cardiology who believes the tachycardia is secondary to dobutamine however it is helping with the renal functio and would like to continue overnight and reassess renal function in the am. If improving will likely wean off the dobutamine. 07/08 Pt seen at bedside, no acute events overnight. He remains tachycardia. Creatinine stable at 2.1, CO2 elevated at 36, similar to yesterday, BNP improved from 3830 down to 1850, remainder of his labs are relatively unremarkable. Pending weaning of dobutamine by cardiology REVIEW OF SYSTEMS 12 point ROS negative unless noted in HPI PHYSICAL EXAM GENERAL APPEARANCE: The patient is awake, alert, and oriented, in no acute cardiopulmonary distress. NEUROLOGICAL: Cranial nerves II-XII grossly intact. Motor is 5/5 in bilateral upper and lower extremities proximal to distal. No sensory deficits. HEENT: Face is symmetric. Pupils are equal and reactive. Extraocular movements are intact. NECK: Supple. No JVD. No thyromegaly. No submental, submandibular, pre- /postauricular, occipital or supraclavicular lymphadenopathy. CHEST: Normal chest expansion. No Telemetry. LUNGS: bilateral lower lobe crackles CARDIOVASCULAR: Regular. S1 and S2 normal. No appreciable rubs, murmurs or gallops. ABDOMEN: Soft, nontender, and nondistended. There is no rebound, voluntary guarding, or rigidity. : Deferred. No Guillermo. EXTREMITIES: 2+ bilateral lower leg pitting edema. not cyanotic. No clubbing. Good capillary refill. SKIN: No skin breakdown. Vital Signs (last 8hr) Date Time Temp Pulse Resp B/P (MAP) Pulse Ox O2 Delivery O2 Flow Rate FiO2 07/08/24 12:50 98.2 94 18 115/76 100 Room Air 07/08/24 08:25 120/71 07/08/24 08:05 98.2 116 18 117/82 97 Room Air 07/08/24 07:30 96 Room Air* 0 21 07/08/24 07:27 120/71 LABS: Laboratory: Test 07/08/24 12:52 07/08/24 03:47 Range/Units Whole Blood Glucose 236 H 70-110 MG/DL White Blood Count 6.6 4.8-10.8 K/uL Red Blood Count 4.41 L 4.50-6.20 MIL/uL Hemoglobin 12.0 L 14.0-18.0 g/dL Hematocrit 37.1 L 42-54 % Mean Corpuscular Volume 84.1 79-99 fL Mean Corpuscular Hemoglobin 27.2 27.0-33.0 pg Mean Corpuscular Hemoglobin Concent 32.3 32.0-36.0 g/dL Red Cell Distribution Width 15.9 H 11.0-15.5 % Platelet Count 210 130-400 K/uL Mean Platelet Volume 9.8 7.5-10.5 fL Immature Granulocyte % (Auto) 0.3 0-1 % Neutrophils (%) (Auto) 61.3 40.0-77.0 % Lymphocytes (%) (Auto) 16.3 L 21.0-51.0 % Monocytes (%) (Auto) 18.1 H 3.0-13.0 % Eosinophils (%) (Auto) 3.2 0.0-8.0 % Basophils (%) (Auto) 0.8 0.0-5.0 % Neutrophils # (Auto) 4.0 1.8-7.7 K/uL Lymphocytes # (Auto) 1.1 1.0-4.8 K/uL Monocytes # (Auto) 1.2 H 0.1-1.0 K/uL Eosinophils # (Auto) 0.21 0.00-0.70 K/uL Basophils # (Auto) 0.05 0.00-0.20 K/uL Absolute Immature Granulocyte (auto 0.02 0-1 K/uL Nucleated Red Blood Cells 0.0 0.0-0.19 % Sodium Level 134 L 136-145 mmol/L Potassium Level 3.5 3.5-5.1 mmol/L Chloride Level 95 L 101-111 mmol/L Carbon Dioxide Level 36 H 21-32 mmol/L Blood Urea Nitrogen 41 H 7-18 mg/dL Creatinine 2.1 H 0.5-1.3 mg/dL Glomerular Filtration Rate Calc 35 >90 mL/min Random Glucose 172 H 70-105 mg/dL Total Calcium 8.5 8.5-10.1 mg/dL B-Type Natriuretic Peptide 1850 H 0-100 pg/mL Current Medications Medications (Trade) Dose Ordered Sig/Anjelica Route PRN Reason Start Time Stop Time Status Last Admin Dose Admin Acetaminophen (TYLenol 500MG TAB) 500 mg Q6H PRN PO MILD PAIN (1-3) 07/04/24 14:00 08/03/24 13:59 07/06/24 14:35 500 MG Aspirin (Aspirin 81mg Ec Tab) 81 mg DAILY PO 07/05/24 09:00 08/04/24 08:59 07/08/24 08:58 81 MG Atorvastatin Calcium (LIPItor 20MG) 20 mg HS PO 07/05/24 21:00 08/04/24 20:59 07/07/24 21:40 20 MG Budesonide (Pulmicort 0.5 Mg/2ml) 0.5 mg BIDRESP IH 07/04/24 18:00 07/06/24 14:21 DC 07/06/24 06:27 0.5 MG Bumetanide (Bumex 1mg Vial) 1 mg BID IVP 07/06/24 09:00 08/03/24 13:29 07/08/24 08:58 1 MG Bumetanide (Bumex 1mg Vial) 1 mg Q8H IVP 07/04/24 13:30 07/06/24 08:38 DC 07/06/24 05:42 1 MG Dobutamine HCl/ Dextrose 250 ml @ 0 mls/hr PROTOCOL IV 07/05/24 14:00 07/06/24 10:18 DC Dobutamine HCl/ Dextrose 250 ml @ 0 mls/hr PROTOCOL IV 07/06/24 10:30 07/06/24 11:33 DC Dobutamine HCl/ Dextrose 250 ml @ 0 mls/hr PROTOCOL IV 07/06/24 12:00 08/05/24 11:59 07/08/24 07:27 1 MLS/HR Dopamine HCl/ Dextrose 250 ml @ 0 mls/hr PROTOCOL IV 07/05/24 13:00 07/05/24 13:48 DC Guaifenesin/ Dextromethorphan (RobiTUSSin DM 200/20MG 10ML) 10 ml Q6H PRN PO COUGH 07/04/24 13:30 08/03/24 13:29 Heparin Sodium (Porcine) (HEParin 5,000 UNIT VIAL) 5,000 unit ONCE SQ 07/04/24 13:00 07/04/24 13:37 DC 07/04/24 12:59 5,000 UNIT Insulin Glargine (LANtus 100 UNITS/ML 10 ML VIAL) 10 units DAILY SQ 07/05/24 09:00 08/04/24 08:59 07/08/24 09:00 10 UNITS Insulin Human Regular (humuLIN R 100 UNIT/ML 3ML) INSULIN SLIDING SCAL... ACHS SQ 07/04/24 16:30 08/03/24 16:29 07/07/24 21:45 4 UNIT Ipratropium [place] (AtrovENT UD) 0.5 mg Q6H PRN IH SHORTNESS OF BREATH 07/04/24 14:00 07/06/24 14:21 DC Lactulose (Constulose 20gm/ 30ml Udcup) 20 gm BID PRN PO CONSTIPATION 07/06/24 12:00 08/05/24 11:59 Losartan Potassium (CozAAR 25MG TAB) 25 mg DAILY PO 07/05/24 09:00 07/04/24 16:43 DC Magnesium Sulfate 50 ml @ 0 mls/hr PROTOCOL IV 07/04/24 14:00 08/03/24 13:59 07/05/24 06:20 25 MLS/HR Nitroglycerin (Nitrostat) 0.4 mg AD PRN SL CHEST PAIN 07/04/24 14:00 08/03/24 13:59 Ondansetron HCl (zoFRAN 4MG INJ) 4 mg Q6H PRN IVP NAUSEA/VOMITING 07/04/24 14:00 08/03/24 13:59 Potassium Chloride 100 ml @ 50 mls/hr AD PRN IV POTASSIUM PROTOCOL 07/04/24 20:30 08/03/24 20:29 Potassium Chloride (K-Dur 10meq Sr Tab) 10 meq AD PRN PO POTASSIUM PROTOCOL 07/05/24 09:30 08/03/24 20:29 07/08/24 06:56 10 MEQ Potassium Chloride (K-Dur/Klor-Con 20meq) 10 meq AD PRN PO POTASSIUM PROTOCOL 07/04/24 20:30 07/05/24 09:02 DC Potassium Chloride (KCl 10% Elixir 20meq/15ml) 10 meq AD PRN PO POTASSIUM PROTOCOL 07/04/24 20:30 08/03/24 20:29 07/07/24 10:44 10 MEQ DIAGNOSTICS / RADIOLOGY: [ ] ASSESSMENT: 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, POA Hx of severe suspected Ischemic Cardiomyopathy with LVEF less than 20%, POA Acute Hypoxemic respiratory failure with Cardiogenic Pulmonary edema, POA JOAQUÍN on CKD with Suspected underlying Cardiorenal Syndrome, POA Nephrotic range proteinuria, POA Elevated Troponin, likely due to CHF exacerbation and Demand Ischemia, r/o active ACS, POA Hx of Bilateral Vitreous Hemorrhage with legal blindness, POA Hx of Bilateral Cataracts of the eyes, POA diabetes mellitus type II A1c 9.6 - POA stage III chronic kidney disease - POA hyperlipidemia - POA hypertension - POA Right sided Pleural Effusion, POA cardiorenal syndrome - POA bilateral diabetic or hypertensive retinopathy bilateral diabetic neuropathy former smoker Uncontrolled Hypothyroidism, POA PLAN: Admit to PCCU Acute on chronic combined congestive heart failure exacerbation Severe CHF with EF less than 20 %, stage III diastolic dysfunction Hx of positive stress test in 02/27 Cardiogenic Pulmonary edema with right sided pleural effusion Rule out ACS - Cardiology consult. Appreciate recommendations - Decrease bumex to 1mg BID - Continue dobutamine drip to be managed by cardiology - Echo showing LVEF < 20% - Trend troponin to r/o active ACS - Hold beta blockers for now given low output state, hold MAKSIM due to JOAQUÍN on CKD - Nitrostat 0.4 mg prn for chest pain - Strict I & Os - Daily weight - Fluid restriction less than 1.5L in 24 hour - Heart healthy diet - Follow hemodynamics JOAQUÍN on CKD Suspected Cardiorenal syndrome Stage III chronic kidney disease Diabetes type II A1c 9.6 Bilateral diabetic/hypertensive retinopathy Bilateral diabetic neuropathy Hypertension -Nephrology consult. Appreciate recommendations - renal ultrasound - Urine protein - Urine creatine - Strict monitoring of intake, output and overall fluid balance - Daily weights - Avoid nephrotoxic medications to the extent possible - Monitor electrolytes and replace as needed - Medications to be dosed according to renal function - Avoid contrast if possible - Maintain blood glucose between 100-180 at all times - Basal Lantus 10 units - Insulin sliding scale for blood glucose management - Hypoglycemia and hyperglycemia protocol in place Acute Hypoxic Respiratory due to Pulmonary edema Right sided Pleural Effusion as per chest xray 07/04/24 c/w IV diuresis No evidence of reactive airway disease, discontinue nebulizer treatments Hx of Bilateral vitreous hemorrhage with legal blindness Hx of bilateral cataracts Hx of retinopathy of bilateral eyes - Patient reports that his vision worsened after receiving anticoagulation and antiplatelet therapy in [facility], he wants to hold off on heparin gtt or full dose Lovenox. I spoke with Dr. Nolan with Ophthalmology who stated that patient has been legally blind since 08/28. Per her, we can proceed with antiplatelet/ anticoagulation as benefits of treating his cardiac comorbidities outweigh the risk of worsening his vision. Patient still wants to hold off on a/c as he worried about losing his vision. Per Dr. Nolan, she may evaluate him in [facility] in the next 2-3 days, if unable to, she recommended close ooutpatient follow up with Ophthalmology in clinic Hyperlipidemia - Atorvastatin 20 mg HS - Zofran 4mg q6h prn nausea - Acetaminophen 500 mg PO q6h for pain - DVT prophylaxis - SCD's of bilateral legs - PT/OT - Repeat Labs in the AM - Repeat Chest Xray in the AM - Follow further medical management per Nephrology and Cardiology recommendations Disposition: Pending diuresis, possible heart cath, improvement in renal function SIDDHARTHA JOHNSON MD Jul 08, 2024 14:32
--- NOTE | 2024-07-08 23:29 | PN ---
CARDIOLOGY Reason for consult: CHF HPI/story at presentation: This is a pleasant 64-year-old male with past medical history of the present with complaints of shortness of breath, was diagnosed with CHF exacerbation cardiology was consulted for further evaluation management. Known history of cardiomyopathy, ejection fraction 15 to 20% with previous stress testing with no ischemia or infarction pattern, 02/2024 he has been noncompliant with Lasix at home, here for further eval Management Subjective: 07/04/2024, shortness of breath, lower extremity edema feeling better 07/06/2024 patient seen and evaluated at bedside No events were reported overnight Patient reports overall feeling better today Continues on IV dobutamine at 2.5 07/08/2024 edema and sob better Past medical history: See below Allergies, Meds See chart Review of systems Review of Systems Constitutional: Negative for chills and fever. HENT: Negative for ear discharge and ear pain. Eyes: Negative for photophobia and discharge. Respiratory: Negative for cough, sputum production and stridor. Cardiovascular: Negative for chest pain and palpitations. Gastrointestinal: Negative for diarrhea and vomiting. Genitourinary: Negative for frequency. Musculoskeletal: Negative for myalgias. Skin: Negative for rash. Neurological: Negative for focal weakness and seizures. Endo/Heme/Allergies: Negative for polydipsia. Psychiatric/Behavioral: Negative for hallucinations. Vitals see chart PHYSICAL EXAMINATION GENERAL: The patient is alert and oriented*3 HEENT: Nonicteric sclerae, non traumatic HEART: Regular rate and rhythm with no murmurs LUNGS: Clear to auscultation bilaterally ABDOMEN: No acute issues, non tender GENITAL, RECTAL: deferred SKIN: No rash NEUROLOGIC: NFND EXTREMITIES:EDEMA 06/2024 ASSESSMENT EXACERBATION OF CHF, CARDIOMYOPATHY Noncompliant with diuretics at home History of suspected ischemic cardiomyopathy Stress test with infarction pattern, 02/2024 Ejection fraction of 15 to 20%, 06/2024 On diuresis with Bumex, 06/2024 Normal venous Dopplers, 06/2024 NSTEMI Initial troponin of 1600, trending down HEMATURIA Moderate hematuria, 06/2024 CHRONIC KIDNEY DISEASE Stage III 1.8 at presentation Creatinine at discharge from hospital, 06/2024 was 2.2 HYPERTENSION HYPERLIPIDEMIA DIABETES, TOBACCO USE CORE MEASURES Not on guideline directed medical therapy for cardiomyopathy given renal dysfunction OTHER MEDICAL PROBLEMS Anxiety disorder Diabetic neuropathy PLAN 07/04/2024 patient with NSTEMI, CHF exacerbation at presentation. Although type II elevation is possible, given presentation, will need to ensure that he does not have underlying ACS. EKG with non specific changes and no chest pain. Ideally, needs to be on anticoagulation with heparin to help with potential ACS. However, at this time, patient is concerned about increased retinal bleeding with anticoagulation and had not been on antiplatelets or anticoagulants before for the same reason. Although risk of myocardial injury is a concern, troponins are trending down and given risk of visual loss, after extensive discussion with the patient, plan is not to anticoagulate at this time. Will repeat echocardiogram to reassess ejection fraction. Post diuresis, may consider ischemic evaluation as needed. Also, underlying cardiorenal syndrome and therefore, may need dobutamine support for diuresis. Will follow closely 07/05/2024 breathing better, -600 on output, Remains on Bumex 3 times daily, also got a dose of metolazone this morning, potassium is being replaced. Will add a small dose of dobutamine to help with diuresis. Do not titrate and leave at 2.5. Hopefully, this helps his renal function as well. Primary team reached out to ophthalmology on-call and per ophthalmology, may consider anticoagulation if needed/antithrombotics if needed in spite of previous history of vitreal hemorrhage and proliferative retinopathy given risk and benefit. Patient himself would like to stay of antithrombotics if possible. Troponins have trended down and at this time, plan remains to stay off anticoagulation. Will consider coronary angiography prior to discharge depending on renal function and clinical course. Continue diuresis. 07/06/2024 patient is Bumex was decreased to every 12 hours. Attempted to increase dobutamine drip to 5. The patient experienced sinus tachycardia rate of 120 to 130 shortly after. Dobutamine drip was decreased back to 2.5. Creatinine increased to 2.4 today. Continue with Nephrology recommendations Repeat BMP in the AM Avoid any nephrotoxic medications as possible Will discuss coronary angiogram if renal function improves. ; Agree, Bumex was tapered because of worsening renal function. Remains on dobutamine. Having issues with anxiety, doing well. Seen and examined around 8 PM. 07/07/2024 Doing well, ongoing diuresis, issues with anxiety yesterday but has done well. Did receive a dose of Xanax yesterday. Continues to diurese, edema still present. Remains on dobutamine at 2.5. Creatinine today is better at 2.1. Continue current Bumex and dobutamine regimen. Plans remain for eventual cardiac catheterization once renal function improves and diuresis is complete. No plans for anticoagulation as above. 07/08/2024 Has had about 7 L out yesterday continues to diurese well. Remains on dobutamine with mild tachycardia. Potassium is being replaced. lower extremity edema progressively improving. Tentative plan for cardiac catheterization on Wednesday to further evaluate underlying cardiomyopathy. ATTESTATION I was involved substantially in the care of this patient Number and complexity of problems addressed: 1 acute illness with severe exacerbation Amount and or complexity of data Review of prior external note(s) from each unique source: 2+ Ordering of each unique test : 0 Review of the result(s) of each unique test: 2+ Assessment requiring an independent historian(s): No Independent interpretation of test performed by another MD/QHCP/appropriate source (not separately reported) : No Discussion of management or test interpretation with external MD/QHCP/appropriate source (not separately reported) : No Risk status (cardiac, billing related): High Vitals/Labs Vital Signs Date Time Temp Pulse Resp B/P (MAP) Pulse Ox O2 Delivery O2 Flow Rate FiO2 07/08/24 19:50 97.9 117 20 115/83 96 Room Air 07/08/24 07:30 0 21 Laboratory Tests 07/08/24 03:47 Medications Current Medications Aspirin 325 mg ONCE ONCE PO Last administered on 07/04/24at 12:59; Start 07/04/24 at 13:00; Stop 07/04/24 at 13:01; Status DC Heparin Sodium (Porcine) 5,000 unit ONCE SQ Last administered on 07/04/24at 12:59; Start 07/04/24 at 13:00; Stop 07/04/24 at 13:37; Status DC Guaifenesin/ Dextromethorphan 10 ml Q6H PRN PO; Start 07/04/24 at 13:30; Stop 08/03/24 at 13:29 Bumetanide 1 mg Q8H IVP Last administered on 07/06/24at 05:42; Start 07/04/24 at 13:30; Stop 07/06/24 at 08:38; Status DC Insulin Human Regular INSULIN SLIDING SCAL... ACHS SQ Last administered on 07/08/24at 21:09; Start 07/04/24 at 16:30; Stop 08/03/24 at 16:29 Magnesium Sulfate 50 ml @ 0 mls/hr PROTOCOL IV Last administered on 07/05/24at 06:20; Start 07/04/24 at 14:00; Stop 08/03/24 at 13:59 Acetaminophen 500 mg Q6H PRN PO Last administered on 07/06/24at 14:35; Start 07/04/24 at 14:00; Stop 08/03/24 at 13:59 Ondansetron HCl 4 mg Q6H PRN IVP; Start 07/04/24 at 14:00; Stop 08/03/24 at 13:59 Ipratropium [place] 0.5 mg Q6H PRN IH; Start 07/04/24 at 14:00; Stop 07/06/24 at 14:21; Status DC Budesonide 0.5 mg BIDRESP IH Last administered on 07/06/24at 06:27; Start 07/04/24 at 18:00; Stop 07/06/24 at 14:21; Status DC Aspirin 81 mg DAILY PO Last administered on 07/08/24at 08:58; Start 07/05/24 at 09:00; Stop 08/04/24 at 08:59 Nitroglycerin 0.4 mg AD PRN SL; Start 07/04/24 at 14:00; Stop 08/03/24 at 13:59 Losartan Potassium 25 mg DAILY PO; Start 07/05/24 at 09:00; Stop 07/04/24 at 16:43; Status DC Potassium Chloride 100 ml @ 50 mls/hr AD PRN IV; Start 07/04/24 at 20:30; Stop 08/03/24 at 20:29 Potassium Chloride 10 meq AD PRN PO Last administered on 07/07/24at 10:44; Start 07/04/24 at 20:30; Stop 08/03/24 at 20:29 Potassium Chloride 10 meq AD PRN PO; Start 07/04/24 at 20:30; Stop 07/05/24 at 09:02; Status DC Potassium Chloride 40 meq ONCE ONCE PO Last administered on 07/04/24at 20:57; Start 07/04/24 at 21:00; Stop 07/04/24 at 21:01; Status DC Potassium Chloride 100 ml @ 100 mls/hr ONCE ONCE IV; Start 07/05/24 at 00:00; Stop 07/05/24 at 00:59; Status DC Alprazolam 0.25 mg ONCE ONCE PO Last administered on 07/04/24at 23:47; Start 07/04/24 at 23:00; Stop 07/04/24 at 23:01; Status DC Insulin Glargine 10 units DAILY SQ Last administered on 07/08/24at 09:00; Start 07/05/24 at 09:00; Stop 08/04/24 at 08:59 Metolazone 5 mg ONCE ONCE PO Last administered on 07/05/24at 09:24; Start 07/05/24 at 09:00; Stop 07/05/24 at 09:01; Status DC Potassium Chloride 10 meq AD PRN PO Last administered on 07/08/24at 06:56; Start 07/05/24 at 09:30; Stop 08/03/24 at 20:29 Atorvastatin Calcium 20 mg HS PO Last administered on 07/08/24at 21:07; Start 07/05/24 at 21:00; Stop 08/04/24 at 20:59 Dopamine HCl/ Dextrose 250 ml @ 0 mls/hr PROTOCOL IV; Start 07/05/24 at 13:00; Stop 07/05/24 at 13:48; Status DC Dobutamine HCl/ Dextrose 250 ml @ As Directed STK-MED ONCE IV Last administered on 07/05/24at 13:52; Start 07/05/24 at 13:36; Stop 07/05/24 at 13:41; Status DC Dobutamine HCl/ Dextrose 250 ml @ 0 mls/hr PROTOCOL IV; Start 07/05/24 at 14:00; Stop 07/06/24 at 10:18; Status DC Bumetanide 1 mg BID IVP Last administered on 07/08/24at 21:07; Start 07/06/24 at 09:00; Stop 08/03/24 at 13:29 Dobutamine HCl/ Dextrose 250 ml @ 0 mls/hr PROTOCOL IV; Start 07/06/24 at 10:30; Stop 10/31/24 at 11:33; Status DC Dobutamine HCl/ Dextrose 250 ml @ 0 mls/hr PROTOCOL IV Last administered on 07/08/24at 07:27; Start 07/06/24 at 12:00; Stop 08/05/24 at 11:59 Lactulose 20 gm BID PRN PO; Start 07/06/24 at 12:00; Stop 08/05/24 at 11:59 Alprazolam 0.25 mg ONCE ONCE PO Last administered on 07/06/24at 23:06; Start 07/06/24 at 23:00; Stop 07/06/24 at 23:01; Status DC Alprazolam 0.25 mg ONCE ONCE PO Last administered on 07/07/24at 23:42; Start 07/08/24 at 00:00; Stop 07/08/24 at 00:01; Status DC GUSTAVO PRUITT MD Jul 08, 2024 23:28
[2024-07-09] VITALS (8 sets, daily range): BP systolic 102–119; BP diastolic 60–83; PULSE 117–124; RESP 18; TEMP 97.4–99.3; O2SAT 97–98
[2024-07-09 04:20] LABS: BASOPHILS # (AUTO) 0.03 K/uL (0.00-0.20); BASOPHILS % (AUTO) 0.5 % (0.0-5.0); EOSINOPHILS # (AUTO) 0.19 K/uL (0.00-0.70); EOSINOPHILS % (AUTO) 3.4 % (0.0-8.0); HEMATOCRIT 37.4 % (42-54); IMMATURE GRANULOCYTE ABSOLUTE 0.02 K/uL (0-1); LYMPHOCYTES # (AUTO) 0.9 K/uL (1.0-4.8); LYMPHOCYTES % (AUTO) 16.3 % (21.0-51.0); MEAN CORPUSCULAR HEMOGLOBIN 27.5 pg (27.0-33.0); MEAN CORPUSCULAR HGB CONC 32.9 g/dL (32.0-36.0); MEAN CORPUSCULAR VOLUME 83.5 fL (79-99); MONOCYTES # (AUTO) 0.9 K/uL (0.1-1.0); MONOCYTES % (AUTO) 16.3 % (3.0-13.0); NEUTROPHILS # (AUTO) 3.5 K/uL (1.8-7.7); NEUTROPHILS % (AUTO) 63.1 % (40.0-77.0); PLATELET COUNT (AUTO) 203 K/uL (130-400); RED BLOOD CELL COUNT(AUTO) 4.48 MIL/uL (4.50-6.20); WHITE BLOOD COUNT (AUTO) 5.6 K/uL (4.8-10.8)
[2024-07-09 04:41] LABS: CREATININE 1.8 mg/dL (0.5-1.3); MAGNESIUM 1.6 mg/dL (1.80-2.40); PHOSPHORUS 3.9 mg/dL (2.5-4.9); POTASSIUM 3.3 mmol/L (3.5-5.1)
--- NOTE | 2024-07-09 13:08 | PN ---
[facility] PROGRESS NOTE Date of Service: Jul 09, 2024 Time of Service: 13:02 SUBJECTIVE: 07/05 Pt seen at bedside, no acute events overnight. Shortness of breath has improved, however he still has orthopnea and cough. Lower extremities with 2+ pitting edema. Will continue with diuresis, further care per cardiology. He is hemodynamically stable. Creatinine improved from 2.0 down to 1.9, sodium decreased from 138 down to 130, remainder of his labs are relatively unremarkable. 07/06 Pt seen at bedside, no acute events overnight. He has no complaints today. Diuresing well with approximately 2.5L urine output in 24 hours, weight decreased from 91.1 down to 89.2kg. Creatinine increased from 1.9 up to 2.4, bumex decreased to 1mg BID, pt continues on dobutamine drip. Remainder of his labs are relatively unremarkable 07/07 Pt seen at bedside, no acute events overnight. He remains tachycardic, HR in the 120s. He continues to diurese, continue bumex 1mg BID per cardiology. Sodium stable at 131, similar to yesterday, potassium improved from 3.1 up to 3.5 with repletion, will continue to trend, creatinine decreased from 2.4 down to 2.1. Discussed with cardiology who believes the tachycardia is secondary to dobutamine however it is helping with the renal functio and would like to continue overnight and reassess renal function in the am. If improving will likely wean off the dobutamine. 07/08 Pt seen at bedside, no acute events overnight. He remains tachycardia. Creatinine stable at 2.1, CO2 elevated at 36, similar to yesterday, BNP improved from 3830 down to 1850, remainder of his labs are relatively unremarkable. Pending weaning of dobutamine by cardiology 07/09 Pt continues with diuresis per cardiology. Pending possible cardiac cath tomorrow, will follow up with cardiology. He remains tachycardic, creatinine improved from 2.1 down to 1.8, approximately 1.7L urine output in the last 24 hours, further care per cardiology. REVIEW OF SYSTEMS 12 point ROS negative unless noted in HPI PHYSICAL EXAM GENERAL APPEARANCE: The patient is awake, alert, and oriented, in no acute cardiopulmonary distress. NEUROLOGICAL: Cranial nerves II-XII grossly intact. Motor is 5/5 in bilateral upper and lower extremities proximal to distal. No sensory deficits. HEENT: Face is symmetric. Pupils are equal and reactive. Extraocular movements are intact. NECK: Supple. No JVD. No thyromegaly. No submental, submandibular, pre- /postauricular, occipital or supraclavicular lymphadenopathy. CHEST: Normal chest expansion. No Telemetry. LUNGS: bilateral lower lobe crackles CARDIOVASCULAR: Regular. S1 and S2 normal. No appreciable rubs, murmurs or gallops. ABDOMEN: Soft, nontender, and nondistended. There is no rebound, voluntary guarding, or rigidity. : Deferred. No Guillermo. EXTREMITIES: 2+ bilateral lower leg pitting edema. not cyanotic. No clubbing. Good capillary refill. SKIN: No skin breakdown. Vital Signs (last 8hr) Date Time Temp Pulse Resp B/P (MAP) Pulse Ox O2 Delivery O2 Flow Rate FiO2 07/09/24 13:01 99.3 124 18 102/75 98 Room Air 07/09/24 08:17 97.7 122 18 105/69 95 Room Air 07/09/24 07:30 97 Room Air* 0 21 LABS: Laboratory: Test 07/09/24 05:32 07/09/24 04:10 07/08/24 03:47 Range/Units Whole Blood Glucose 155 H 70-110 MG/DL White Blood Count 5.6 4.8-10.8 K/uL Red Blood Count 4.48 L 4.50-6.20 MIL/uL Hemoglobin 12.3 L 14.0-18.0 g/dL Hematocrit 37.4 L 42-54 % Mean Corpuscular Volume 83.5 79-99 fL Mean Corpuscular Hemoglobin 27.5 27.0-33.0 pg Mean Corpuscular Hemoglobin Concent 32.9 32.0-36.0 g/dL Red Cell Distribution Width 16.0 H 11.0-15.5 % Platelet Count 203 130-400 K/uL Mean Platelet Volume 9.5 7.5-10.5 fL Immature Granulocyte % (Auto) 0.4 0-1 % Neutrophils (%) (Auto) 63.1 40.0-77.0 % Lymphocytes (%) (Auto) 16.3 L 21.0-51.0 % Monocytes (%) (Auto) 16.3 H 3.0-13.0 % Eosinophils (%) (Auto) 3.4 0.0-8.0 % Basophils (%) (Auto) 0.5 0.0-5.0 % Neutrophils # (Auto) 3.5 1.8-7.7 K/uL Lymphocytes # (Auto) 0.9 L 1.0-4.8 K/uL Monocytes # (Auto) 0.9 0.1-1.0 K/uL Eosinophils # (Auto) 0.19 0.00-0.70 K/uL Basophils # (Auto) 0.03 0.00-0.20 K/uL Absolute Immature Granulocyte (auto 0.02 0-1 K/uL Nucleated Red Blood Cells 0.0 0.0-0.19 % Sodium Level 134 L 136-145 mmol/L Potassium Level 3.3 L 3.5-5.1 mmol/L Chloride Level 95 L 101-111 mmol/L Carbon Dioxide Level 36 H 21-32 mmol/L Blood Urea Nitrogen 33 H 7-18 mg/dL Creatinine 1.8 H 0.5-1.3 mg/dL Glomerular Filtration Rate Calc 42 >90 mL/min Random Glucose 119 H 70-105 mg/dL Total Calcium 8.7 8.5-10.1 mg/dL Phosphorus Level 3.9 2.5-4.9 mg/dL Magnesium Level 1.60 L 1.80-2.40 mg/dL B-Type Natriuretic Peptide 1850 H 0-100 pg/mL Current Medications Medications (Trade) Dose Ordered Sig/Anjelica Route PRN Reason Start Time Stop Time Status Last Admin Dose Admin Acetaminophen (TYLenol 500MG TAB) 500 mg Q6H PRN PO MILD PAIN (1-3) 07/04/24 14:00 08/03/24 13:59 07/06/24 14:35 500 MG Aspirin (Aspirin 81mg Ec Tab) 81 mg DAILY PO 07/05/24 09:00 08/04/24 08:59 07/09/24 09:24 81 MG Atorvastatin Calcium (LIPItor 20MG) 20 mg HS PO 07/05/24 21:00 08/04/24 20:59 07/08/24 21:07 20 MG Budesonide (Pulmicort 0.5 Mg/2ml) 0.5 mg BIDRESP IH 07/04/24 18:00 07/06/24 14:21 DC 07/06/24 06:27 0.5 MG Bumetanide (Bumex 1mg Vial) 1 mg BID IVP 07/06/24 09:00 07/09/24 11:28 DC 07/09/24 09:23 1 MG Bumetanide (Bumex 1mg Vial) 1 mg Q8H IVP 07/04/24 13:30 07/06/24 08:38 DC 07/06/24 05:42 1 MG Dobutamine HCl/ Dextrose 250 ml @ 0 mls/hr PROTOCOL IV 07/05/24 14:00 07/06/24 10:18 DC Dobutamine HCl/ Dextrose 250 ml @ 0 mls/hr PROTOCOL IV 07/06/24 10:30 07/06/24 11:33 DC Dobutamine HCl/ Dextrose 250 ml @ 0 mls/hr PROTOCOL IV 07/06/24 12:00 08/05/24 11:59 07/08/24 07:27 1 MLS/HR Dopamine HCl/ Dextrose 250 ml @ 0 mls/hr PROTOCOL IV 07/05/24 13:00 07/05/24 13:48 DC Furosemide (LASix 40MG TAB) 40 mg BID@09,17 PO 07/09/24 17:00 08/08/24 16:59 Guaifenesin/ Dextromethorphan (RobiTUSSin DM 200/20MG 10ML) 10 ml Q6H PRN PO COUGH 07/04/24 13:30 08/03/24 13:29 Heparin Sodium (Porcine) (HEParin 5,000 UNIT VIAL) 5,000 unit ONCE SQ 07/04/24 13:00 07/04/24 13:37 DC 07/04/24 12:59 5,000 UNIT Insulin Glargine (LANtus 100 UNITS/ML 10 ML VIAL) 10 units DAILY SQ 07/05/24 09:00 08/04/24 08:59 07/09/24 09:28 10 UNITS Insulin Human Regular (humuLIN R 100 UNIT/ML 3ML) INSULIN SLIDING SCAL... ACHS SQ 07/04/24 16:30 08/03/24 16:29 07/08/24 21:09 2 UNIT Ipratropium [place] (AtrovENT UD) 0.5 mg Q6H PRN IH SHORTNESS OF BREATH 07/04/24 14:00 07/06/24 14:21 DC Lactulose (Constulose 20gm/ 30ml Udcup) 20 gm BID PRN PO CONSTIPATION 07/06/24 12:00 08/05/24 11:59 Losartan Potassium (CozAAR 25MG TAB) 25 mg DAILY PO 07/05/24 09:00 07/04/24 16:43 DC Magnesium Sulfate 50 ml @ 0 mls/hr PROTOCOL IV 07/04/24 14:00 08/03/24 13:59 07/09/24 07:01 25 MLS/HR Nitroglycerin (Nitrostat) 0.4 mg AD PRN SL CHEST PAIN 07/04/24 14:00 08/03/24 13:59 Ondansetron HCl (zoFRAN 4MG INJ) 4 mg Q6H PRN IVP NAUSEA/VOMITING 07/04/24 14:00 08/03/24 13:59 Potassium Chloride 100 ml @ 50 mls/hr AD PRN IV POTASSIUM PROTOCOL 07/04/24 20:30 08/03/24 20:29 Potassium Chloride (K-Dur 10meq Sr Tab) 10 meq AD PRN PO POTASSIUM PROTOCOL 07/05/24 09:30 08/03/24 20:29 07/08/24 06:56 10 MEQ Potassium Chloride (K-Dur/Klor-Con 20meq) 10 meq AD PRN PO POTASSIUM PROTOCOL 07/04/24 20:30 07/05/24 09:02 DC Potassium Chloride (KCl 10% Elixir 20meq/15ml) 10 meq AD PRN PO POTASSIUM PROTOCOL 07/04/24 20:30 08/03/24 20:29 07/09/24 07:01 10 MEQ DIAGNOSTICS / RADIOLOGY: [ ] ASSESSMENT: 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, POA Hx of severe suspected Ischemic Cardiomyopathy with LVEF less than 20%, POA Acute Hypoxemic respiratory failure with Cardiogenic Pulmonary edema, POA JOAQUÍN on CKD with Suspected underlying Cardiorenal Syndrome, POA Nephrotic range proteinuria, POA Elevated Troponin, likely due to CHF exacerbation and Demand Ischemia, r/o active ACS, POA Hx of Bilateral Vitreous Hemorrhage with legal blindness, POA Hx of Bilateral Cataracts of the eyes, POA diabetes mellitus type II A1c 9.6 - POA stage III chronic kidney disease - POA hyperlipidemia - POA hypertension - POA Right sided Pleural Effusion, POA cardiorenal syndrome - POA bilateral diabetic or hypertensive retinopathy bilateral diabetic neuropathy former smoker Uncontrolled Hypothyroidism, POA PLAN: Admit to [facility] Acute on chronic combined congestive heart failure exacerbation Severe CHF with EF less than 20 %, stage III diastolic dysfunction Hx of positive stress test in 02/27 Cardiogenic Pulmonary edema with right sided pleural effusion Rule out ACS - Cardiology consult. Appreciate recommendations - Discontinue bumex - Start furosemide 40mg BID - Continue dobutamine drip to be managed by cardiology - Echo showing LVEF < 20% - Trend troponin to r/o active ACS - Hold beta blockers for now given low output state, hold MAKSIM due to JOAQUÍN on CKD - Nitrostat 0.4 mg prn for chest pain - Strict I & Os - Daily weight - Fluid restriction less than 1.5L in 24 hour - Heart healthy diet - Follow hemodynamics JOAQUÍN on CKD Suspected Cardiorenal syndrome Stage III chronic kidney disease Diabetes type II A1c 9.6 Bilateral diabetic/hypertensive retinopathy Bilateral diabetic neuropathy Hypertension -Nephrology consult. Appreciate recommendations - renal ultrasound - Urine protein - Urine creatine - Strict monitoring of intake, output and overall fluid balance - Daily weights - Avoid nephrotoxic medications to the extent possible - Monitor electrolytes and replace as needed - Medications to be dosed according to renal function - Avoid contrast if possible - Maintain blood glucose between 100-180 at all times - Basal Lantus 10 units - Insulin sliding scale for blood glucose management - Hypoglycemia and hyperglycemia protocol in place Acute Hypoxic Respiratory due to Pulmonary edema Right sided Pleural Effusion as per chest xray 07/04/24 c/w IV diuresis No evidence of reactive airway disease, discontinue nebulizer treatments Hx of Bilateral vitreous hemorrhage with legal blindness Hx of bilateral cataracts Hx of retinopathy of bilateral eyes - Patient reports that his vision worsened after receiving anticoagulation and antiplatelet therapy in [facility], he wants to hold off on heparin gtt or full dose Lovenox. I spoke with Dr. Nolan with Ophthalmology who stated that patient has been legally blind since 08/28. Per her, we can proceed with antiplatelet/ anticoagulation as benefits of treating his cardiac comorbidities outweigh the risk of worsening his vision. Patient still wants to hold off on a/c as he worried about losing his vision. Per Dr. Nolan, she may [place] [facility] [place] 2[place]3 days, if unable to, she recommended close ooutpatient follow up with Ophthalmology in clinic Hyperlipidemia - Atorvastatin 20 mg HS - Zofran 4mg q6h prn nausea - Acetaminophen 500 mg PO q6h for pain - DVT prophylaxis - SCD's of bilateral legs - PT/OT - Repeat Labs in the AM - Repeat Chest Xray in the AM - Follow further medical management per Nephrology and Cardiology recommendations Disposition: Pending diuresis, possible heart cath Wednesday, improvement in renal function, weaning of dobutamine SIDDHARTHA JOHNSON MD Jul 09, 2024 13:08
--- NOTE | 2024-07-09 13:15 | PN ---
FOLLOW PROGRESS NOTE SUBJECTIVE: A 64-year-old male with history of known cardiomyopathy, initially presented with increasing shortness of breath and volume overload. The patient had been noncompliant with his medications. The patient was started on the IV diuretics as well as dobutamine and the patient's pulmonary symptoms have greatly improved. The patient's weight in the hospital has declined by over 10 kilos and the patient is being seen for all of the above. REVIEW OF SYSTEMS: GENERAL: The patient is feeling much improved. HEENT: No change in vision. No change in hearing. CARDIOVASCULAR: There is no current chest pain or palpitations. PULMONARY: As described above. GASTROINTESTINAL: He is tolerating a diet. MUSCULOSKELETAL: Complains of weakness. PHYSICAL EXAMINATION: VITAL SIGNS: Blood pressure is 115/83, pulse in the 100s. GENERAL: Chronically ill male, lying in bed on the medical floor. HEENT: Head is atraumatic. Pupils equal, roving to light. Oropharynx is without exudate. Nares clear. NECK: There is no JVP. There is no thyromegaly, no mass. CARDIOVASCULAR: Regular. There is no S3, S4 gallop. LUNGS: Coarse with equal thoracic movement. ABDOMEN: Soft, nondistended, nontender. EXTREMITIES: No clubbing, no cyanosis. NEUROLOGIC: He is awake. He is alert. LABORATORY DATA: Sodium 134, potassium 3.3, BUN 33, creatinine 1.8. Hemoglobin 12, hematocrit 37. IMPRESSION: * Acute on chronic renal failure. * Congestive heart failure. * Hypertension. * Electrolyte abnormalities. PLAN: The patient's pulmonary symptoms have much improved. The patient has diuresed over 10 kilos from admission. We will switch the Lasix over to 40 mg p.o. b.i.d. in anticipation for discharge to home. Once the patient's dobutamine has been weaned, he can safely be discharged from a renal standpoint. The patient is highly encouraged to comply with his medications upon discharge. TID: [id number] RECEIPT: [id number]
--- NOTE | 2024-07-09 15:15 | PN ---
CARDIOLOGY Reason for consult: CHF HPI/story at presentation: This is a pleasant 64-year-old male with past medical history of the present with complaints of shortness of breath, was diagnosed with CHF exacerbation cardiology was consulted for further evaluation management. Known history of cardiomyopathy, ejection fraction 15 to 20% with previous stress testing with no ischemia or infarction pattern, 02/2024 he has been noncompliant with Lasix at home, here for further eval Management Subjective: 07/04/2024, shortness of breath, lower extremity edema feeling better 07/06/2024 patient seen and evaluated at bedside No events were reported overnight Patient reports overall feeling better today Continues on IV dobutamine at 2.5 07/08/2024 edema and sob better 07/09/2024 no overnight events Past medical history: See below Allergies, Meds See chart Review of systems Review of Systems Constitutional: Negative for chills and fever. HENT: Negative for ear discharge and ear pain. Eyes: Negative for photophobia and discharge. Respiratory: Negative for cough, sputum production and stridor. Cardiovascular: Negative for chest pain and palpitations. Gastrointestinal: Negative for diarrhea and vomiting. Genitourinary: Negative for frequency. Musculoskeletal: Negative for myalgias. Skin: Negative for rash. Neurological: Negative for focal weakness and seizures. Endo/Heme/Allergies: Negative for polydipsia. Psychiatric/Behavioral: Negative for hallucinations. Vitals see chart PHYSICAL EXAMINATION GENERAL: The patient is alert and oriented*3 HEENT: Nonicteric sclerae, non traumatic HEART: Regular rate and rhythm with no murmurs LUNGS: Clear to auscultation bilaterally ABDOMEN: No acute issues, non tender GENITAL, RECTAL: deferred SKIN: No rash NEUROLOGIC: NFND EXTREMITIES:EDEMA 06/2024 ASSESSMENT EXACERBATION OF CHF, CARDIOMYOPATHY Noncompliant with diuretics at home History of suspected ischemic cardiomyopathy Stress test with infarction pattern, 02/2024 Ejection fraction of 15 to 20%, 06/2024 On diuresis with Bumex, 06/2024 Normal venous Dopplers, 06/2024 NSTEMI Initial troponin of 1600, trending down HEMATURIA Moderate hematuria, 06/2024 CHRONIC KIDNEY DISEASE Stage III 1.8 at presentation Creatinine at discharge from hospital, 06/2024 was 2.2 HYPERTENSION HYPERLIPIDEMIA DIABETES, TOBACCO USE CORE MEASURES Not on guideline directed medical therapy for cardiomyopathy given renal dysfunction OTHER MEDICAL PROBLEMS Anxiety disorder Diabetic neuropathy PLAN 07/04/2024 patient with NSTEMI, CHF exacerbation at presentation. Although type II elevation is possible, given presentation, will need to ensure that he does not have underlying ACS. EKG with non specific changes and no chest pain. Ideally, needs to be on anticoagulation with heparin to help with potential ACS. However, at this time, patient is concerned about increased retinal bleeding with anticoagulation and had not been on antiplatelets or anticoagulants before for the same reason. Although risk of myocardial injury is a concern, troponins are trending down and given risk of visual loss, after extensive discussion with the patient, plan is not to anticoagulate at this time. Will repeat echocardiogram to reassess ejection fraction. Post diuresis, may consider ischemic evaluation as needed. Also, underlying cardiorenal syndrome and therefore, may need dobutamine support for diuresis. Will follow closely 07/05/2024 breathing better, -600 on output, Remains on Bumex 3 times daily, also got a dose of metolazone this morning, potassium is being replaced. Will add a small dose of dobutamine to help with diuresis. Do not titrate and leave at 2.5. Hopefully, this helps his renal function as well. Primary team reached out to ophthalmology on-call and per ophthalmology, may consider anticoagulation if needed/antithrombotics if needed in spite of previous history of vitreal hemorrhage and proliferative retinopathy given risk and benefit. Patient himself would like to stay of antithrombotics if possible. Troponins have trended down and at this time, plan remains to stay off anticoagulation. Will consider coronary angiography prior to discharge depending on renal function and clinical course. Continue diuresis. 07/06/2024 patient is Bumex was decreased to every 12 hours. Attempted to increase dobutamine drip to 5. The patient experienced sinus tachycardia rate of 120 to 130 shortly after. Dobutamine drip was decreased back to 2.5. Creatinine increased to 2.4 today. Continue with Nephrology recommendations Repeat BMP in the AM Avoid any nephrotoxic medications as possible Will discuss coronary angiogram if renal function improves. ; Agree, Bumex was tapered because of worsening renal function. Remains on dobutamine. Having issues with anxiety, doing well. Seen and examined around 8 PM. 07/07/2024 Doing well, ongoing diuresis, issues with anxiety yesterday but has done well. Did receive a dose of Xanax yesterday. Continues to diurese, edema still present. Remains on dobutamine at 2.5. Creatinine today is better at 2.1. Continue current Bumex and dobutamine regimen. Plans remain for eventual cardiac catheterization once renal function improves and diuresis is complete. No plans for anticoagulation as above. 07/08/2024 Has had about 7 L out yesterday continues to diurese well. Remains on dobutamine with mild tachycardia. Potassium is being replaced. lower extremity edema progressively improving. Tentative plan for cardiac catheterization on Wednesday to further evaluate underlying cardiomyopathy. 07/09/2024 Bumex has been transitioned to Lasix. Plan for cardiac catheterization tomorrow. Will try to limit contrast use during procedure as much as possible. No plans for anticoagulation perioperatively given eye issues. Therefore, we will go femoral instead of radial approach. Per discussion with ophthalmology at admission, anticoagulation is okay if necessary however, patient still remains hesitant. Further recommendations on the basis of findings on cardiac catheterization. Only diagnostic planned at this point ATTESTATION I was involved substantially in the care of this patient Number and complexity of problems addressed: 1 acute illness with severe exacerbation Amount and or complexity of data Review of prior external note(s) from each unique source: 2+ Ordering of each unique test : 0 Review of the result(s) of each unique test: 2+ Assessment requiring an independent historian(s): No Independent interpretation of test performed by another MD/QHCP/appropriate source (not separately reported) : No Discussion of management or test interpretation with external MD/QHCP/appropriate source (not separately reported) : No Risk status (cardiac, billing related): High Vitals/Labs Vital Signs Date Time Temp Pulse Resp B/P (MAP) Pulse Ox O2 Delivery O2 Flow Rate FiO2 07/09/24 13:01 99.3 124 18 102/75 98 Room Air 07/09/24 07:30 0 21 Laboratory Tests 07/09/24 04:10 Medications Current Medications Aspirin 325 mg ONCE ONCE PO Last administered on 07/04/24at 12:59; Start 07/04/24 at 13:00; Stop 07/04/24 at 13:01; Status DC Heparin Sodium (Porcine) 5,000 unit ONCE SQ Last administered on 07/04/24at 12:59; Start 07/04/24 at 13:00; Stop 07/04/24 at 13:37; Status DC Guaifenesin/ Dextromethorphan 10 ml Q6H PRN PO; Start 07/04/24 at 13:30; Stop 08/03/24 at 13:29 Bumetanide 1 mg Q8H IVP Last administered on 07/06/24at 05:42; Start 07/04/24 at 13:30; Stop 07/06/24 at 08:38; Status DC Insulin Human Regular INSULIN SLIDING SCAL... ACHS SQ Last administered on 07/09/24at 13:19; Start 07/04/24 at 16:30; Stop 08/03/24 at 16:29 Magnesium Sulfate 50 ml @ 0 mls/hr PROTOCOL IV Last administered on 07/09/24at 07:01; Start 07/04/24 at 14:00; Stop 08/03/24 at 13:59 Acetaminophen 500 mg Q6H PRN PO Last administered on 07/06/24at 14:35; Start 07/04/24 at 14:00; Stop 08/03/24 at 13:59 Ondansetron HCl 4 mg Q6H PRN IVP; Start 07/04/24 at 14:00; Stop 08/03/24 at 13:59 Ipratropium Scarbro 0.5 mg Q6H PRN IH; Start 07/04/24 at 14:00; Stop 07/06/24 at 14:21; Status DC Budesonide 0.5 mg BIDRESP IH Last administered on 07/06/24at 06:27; Start 07/04/24 at 18:00; Stop 07/06/24 at 14:21; Status DC Aspirin 81 mg DAILY PO Last administered on 07/09/24at 09:24; Start 07/05/24 at 09:00; Stop 08/04/24 at 08:59 Nitroglycerin 0.4 mg AD PRN SL; Start 07/04/24 at 14:00; Stop 08/03/24 at 13:59 Losartan Potassium 25 mg DAILY PO; Start 07/05/24 at 09:00; Stop 07/04/24 at 16:43; Status DC Potassium Chloride 100 ml @ 50 mls/hr AD PRN IV; Start 07/04/24 at 20:30; Stop 08/03/24 at 20:29 Potassium Chloride 10 meq AD PRN PO Last administered on 07/09/24at 07:01; Start 07/04/24 at 20:30; Stop 08/03/24 at 20:29 Potassium Chloride 10 meq AD PRN PO; Start 07/04/24 at 20:30; Stop 07/05/24 at 09:02; Status DC Potassium Chloride 40 meq ONCE ONCE PO Last administered on 07/04/24at 20:57; Start 07/04/24 at 21:00; Stop 07/04/24 at 21:01; Status DC Potassium Chloride 100 ml @ 100 mls/hr ONCE ONCE IV; Start 07/05/24 at 00:00; Stop 07/05/24 at 00:59; Status DC Alprazolam 0.25 mg ONCE ONCE PO Last administered on 07/04/24at 23:47; Start 07/04/24 at 23:00; Stop 07/04/24 at 23:01; Status DC Insulin Glargine 10 units DAILY SQ Last administered on 07/09/24at 09:28; Start 07/05/24 at 09:00; Stop 08/04/24 at 08:59 Metolazone 5 mg ONCE ONCE PO Last administered on 07/05/24at 09:24; Start 07/05/24 at 09:00; Stop 07/05/24 at 09:01; Status DC Potassium Chloride 10 meq AD PRN PO Last administered on 07/08/24at 06:56; Start 07/05/24 at 09:30; Stop 08/03/24 at 20:29 Atorvastatin Calcium 20 mg HS PO Last administered on 07/08/24at 21:07; Start 07/05/24 at 21:00; Stop 08/04/24 at 20:59 Dopamine HCl/ Dextrose 250 ml @ 0 mls/hr PROTOCOL IV; Start 07/05/24 at 13:00; Stop 07/05/24 at 13:48; Status DC Dobutamine HCl/ Dextrose 250 ml @ As Directed STK-MED ONCE IV Last administered on 07/05/24at 13:52; Start 07/05/24 at 13:36; Stop 07/05/24 at 13:41; Status DC Dobutamine HCl/ Dextrose 250 ml @ 0 mls/hr PROTOCOL IV; Start 07/05/24 at 14:00; Stop 07/06/24 at 10:18; Status DC Bumetanide 1 mg BID IVP Last administered on 07/09/24at 09:23; Start 07/06/24 at 09:00; Stop 07/09/24 at 11:28; Status DC Dobutamine HCl/ Dextrose 250 ml @ 0 mls/hr PROTOCOL IV; Start 07/06/24 at 10:30; Stop 07/06/24 at 11:33; Status DC Dobutamine HCl/ Dextrose 250 ml @ 0 mls/hr PROTOCOL IV Last administered on 07/08/24at 07:27; Start 07/06/24 at 12:00; Stop 08/05/24 at 11:59 Lactulose 20 gm BID PRN PO; Start 07/06/24 at 12:00; Stop 08/05/24 at 11:59 Alprazolam 0.25 mg ONCE ONCE PO Last administered on 07/06/24at 23:06; Start 07/06/24 at 23:00; Stop 07/06/24 at 23:01; Status DC Alprazolam 0.25 mg ONCE ONCE PO Last administered on 07/07/24at 23:42; Start 07/08/24 at 00:00; Stop 07/08/24 at 00:01; Status DC Furosemide 40 mg BID@09,17 PO; Start 07/09/24 at 17:00; Stop 08/08/24 at 16:59 GUSTAVO PRUITT MD Jul 09, 2024 15:15
[2024-07-09] MEDS: furoSEMIDE 40 MG TABLET PO SCH (16:53)
[2024-07-10] VITALS (17 sets, daily range): BP systolic 99–116; BP diastolic 66–79; PULSE 65–128; RESP 16–18; TEMP 97.7–98.7; O2SAT 98
[2024-07-10 03:51] LABS: BASOPHILS # (AUTO) 0.06 K/uL (0.00-0.20); BASOPHILS % (AUTO) 0.9 % (0.0-5.0); EOSINOPHILS # (AUTO) 0.27 K/uL (0.00-0.70); EOSINOPHILS % (AUTO) 4.2 % (0.0-8.0); HEMATOCRIT 38.2 % (42-54); IMMATURE GRANULOCYTE ABSOLUTE 0.01 K/uL (0-1); LYMPHOCYTES # (AUTO) 1.2 K/uL (1.0-4.8); MEAN CORPUSCULAR HEMOGLOBIN 27.5 pg (27.0-33.0); MEAN CORPUSCULAR HGB CONC 32.7 g/dL (32.0-36.0); MONOCYTES # (AUTO) 0.9 K/uL (0.1-1.0); MONOCYTES % (AUTO) 13.7 % (3.0-13.0); PLATELET COUNT (AUTO) 237 K/uL (130-400); RED BLOOD CELL COUNT(AUTO) 4.55 MIL/uL (4.50-6.20); RED CELL DISTRIBUTION WIDTH 16.1 % (11.0-15.5); WHITE BLOOD COUNT (AUTO) 6.4 K/uL (4.8-10.8)
[2024-07-10 04:02] LABS: CREATININE 2.2 mg/dL (0.5-1.3); POTASSIUM 3.5 mmol/L (3.5-5.1)
[2024-07-10 04:06] LABS: PROTHROMBIN TIME 10.8 SEC (9.6-11.6)
[2024-07-10 04:07] LABS: PARTIAL THROMBOPLASTIN TIME 25.9 SEC (26.3-35.5)
--- NOTE | 2024-07-10 09:41 | PN ---
SUBJECTIVE: A 64-year-old male with history of known cardiomyopathy. The patient admitted to the hospital and started on the diuretics. The patient's weight is declined by over 10 kilos. The patient is being seen by Cardiology for possible heart cath and the patient is being seen as a followup visit for all of the above. REVIEW OF SYSTEMS: GENERAL: He is feeling improved since admission. HEENT: No change in vision. No change in hearing. CARDIOVASCULAR: No current chest pains or palpitations. PULMONARY: Shortness of breath ramírez improved. GASTROINTESTINAL: The patient is tolerating diet. PHYSICAL EXAMINATION: VITAL SIGNS: Blood pressure 116/77, pulse 100s. GENERAL: Chronically ill male, older than appearing. HEENT: Head is atraumatic. Pupils equal, roving to light. Oropharynx is without exudate. Nares clear. NECK: There is no JVP. There is no thyromegaly, no mass. CARDIOVASCULAR: Regular. There is no S3, S4 gallop. LUNGS: Coarse with equal thoracic movement. ABDOMEN: Soft, nondistended, nontender. EXTREMITIES: Edema is improved. LABORATORY DATA: Sodium 136, potassium 3.5, BUN 38, creatinine is 2.2. Hemoglobin 12, hematocrit 38. IMPRESSION: * Renal dysfunction. * Cardiomyopathy. * Electrolyte abnormalities. * Hypertension. PLAN: The patient does have renal dysfunction. I did discuss with the patient in regards to the risks involved with the contrast load. The patient is contemplating in regards to proceeding with the heart catheterization. We will continue to follow closely. He remains on the diuretics. We will follow while in the hospital. TID: [id number] RECEIPT: [id number]
--- NOTE | 2024-07-10 10:53 | PN ---
[facility] PROGRESS NOTE Date of Service: Jul 10, 2024 Time of Service: 10:51 SUBJECTIVE: 07/05 Pt seen at bedside, no acute events overnight. Shortness of breath has improved, however he still has orthopnea and cough. Lower extremities with 2+ pitting edema. Will continue with diuresis, further care per cardiology. He is hemodynamically stable. Creatinine improved from 2.0 down to 1.9, sodium decreased from 138 down to 130, remainder of his labs are relatively unremarkable. 07/06 Pt seen at bedside, no acute events overnight. He has no complaints today. Diuresing well with approximately 2.5L urine output in 24 hours, weight decreased from 91.1 down to 89.2kg. Creatinine increased from 1.9 up to 2.4, bumex decreased to 1mg BID, pt continues on dobutamine drip. Remainder of his labs are relatively unremarkable 07/07 Pt seen at bedside, no acute events overnight. He remains tachycardic, HR in the 120s. He continues to diurese, continue bumex 1mg BID per cardiology. Sodium stable at 131, similar to yesterday, potassium improved from 3.1 up to 3.5 with repletion, will continue to trend, creatinine decreased from 2.4 down to 2.1. Discussed with cardiology who believes the tachycardia is secondary to dobutamine however it is helping with the renal functio and would like to continue overnight and reassess renal function in the am. If improving will likely wean off the dobutamine. 07/08 Pt seen at bedside, no acute events overnight. He remains tachycardia. Creatinine stable at 2.1, CO2 elevated at 36, similar to yesterday, BNP improved from 3830 down to 1850, remainder of his labs are relatively unremarkable. Pending weaning of dobutamine by cardiology 07/09 Pt continues with diuresis per cardiology. Pending possible cardiac cath tomorrow, will follow up with cardiology. He remains tachycardic, creatinine improved from 2.1 down to 1.8, approximately 1.7L urine output in the last 24 hours, further care per cardiology. 07/10 the patient has been seen and examined during my rounding, no acute events overnight, patient on dobutamine drip, blood pressure 116/77, heart rate of 110, afebrile, saturating normal on room air. The patient is alert oriented x3, awaiting left heart catheterization by child's nurse today. Denied chest pain, shortness shortness for breath, no nausea, no vomiting. No family members at bedside during my visit. REVIEW OF SYSTEMS 12 point ROS negative unless noted in HPI PHYSICAL EXAM GENERAL APPEARANCE: The patient is awake, alert, and oriented, in no acute cardiopulmonary distress. NEUROLOGICAL: Cranial nerves II-XII grossly intact. Motor is 5/5 in bilateral upper and lower extremities proximal to distal. No sensory deficits. HEENT: Face is symmetric. Pupils are equal and reactive. Extraocular movements are intact. NECK: Supple. No JVD. No thyromegaly. No submental, submandibular, pre- /postauricular, occipital or supraclavicular lymphadenopathy. CHEST: Normal chest expansion. No Telemetry. LUNGS: bilateral lower lobe crackles CARDIOVASCULAR: Regular. S1 and S2 normal. No appreciable rubs, murmurs or gallops. ABDOMEN: Soft, nontender, and nondistended. There is no rebound, voluntary guarding, or rigidity. : Deferred. No Guillermo. EXTREMITIES: 2+ bilateral lower leg pitting edema. not cyanotic. No clubbing. Good capillary refill. SKIN: No skin breakdown. Vital Signs (last 8hr) Date Time Temp Pulse Resp B/P (MAP) Pulse Ox O2 Delivery O2 Flow Rate FiO2 07/10/24 08:53 98.4 110 16 116/77 97 Room Air 07/10/24 04:06 98.1 128 18 114/79 100 Room Air LABS: Laboratory: Test 07/10/24 05:42 07/10/24 03:23 07/09/24 04:10 Range/Units Whole Blood Glucose 135 H 70-110 MG/DL White Blood Count 6.4 4.8-10.8 K/uL Red Blood Count 4.55 4.50-6.20 MIL/uL Hemoglobin 12.5 L 14.0-18.0 g/dL Hematocrit 38.2 L 42-54 % Mean Corpuscular Volume 84.0 79-99 fL Mean Corpuscular Hemoglobin 27.5 27.0-33.0 pg Mean Corpuscular Hemoglobin Concent 32.7 32.0-36.0 g/dL Red Cell Distribution Width 16.1 H 11.0-15.5 % Platelet Count 237 130-400 K/uL Mean Platelet Volume 10.1 7.5-10.5 fL Immature Granulocyte % (Auto) 0.2 0-1 % Neutrophils (%) (Auto) 62.0 40.0-77.0 % Lymphocytes (%) (Auto) 19.0 L 21.0-51.0 % Monocytes (%) (Auto) 13.7 H 3.0-13.0 % Eosinophils (%) (Auto) 4.2 0.0-8.0 % Basophils (%) (Auto) 0.9 0.0-5.0 % Neutrophils # (Auto) 4.0 1.8-7.7 K/uL Lymphocytes # (Auto) 1.2 1.0-4.8 K/uL Monocytes # (Auto) 0.9 0.1-1.0 K/uL Eosinophils # (Auto) 0.27 0.00-0.70 K/uL Basophils # (Auto) 0.06 0.00-0.20 K/uL Absolute Immature Granulocyte (auto 0.01 0-1 K/uL Nucleated Red Blood Cells 0.0 0.0-0.19 % Prothrombin Time 10.8 9.6-11.6 SEC Prothromb Time International Ratio 1.00 0.85-1.15 Activated Partial Thromboplast Time 25.9 L 26.3-35.5 SEC Sodium Level 136 136-145 mmol/L Potassium Level 3.5 3.5-5.1 mmol/L Chloride Level 97 L 101-111 mmol/L Carbon Dioxide Level 34 H 21-32 mmol/L Blood Urea Nitrogen 38 H 7-18 mg/dL Creatinine 2.2 H 0.5-1.3 mg/dL Glomerular Filtration Rate Calc 33 >90 mL/min Random Glucose 112 H 70-105 mg/dL Total Calcium 8.8 8.5-10.1 mg/dL Phosphorus Level 3.9 2.5-4.9 mg/dL Magnesium Level 1.60 L 1.80-2.40 mg/dL Current Medications Medications (Trade) Dose Ordered Sig/Anjelica Route PRN Reason Start Time Stop Time Status Last Admin Dose Admin Acetaminophen (TYLenol 500MG TAB) 500 mg Q6H PRN PO MILD PAIN (1-3) 07/04/24 14:00 08/03/24 13:59 07/06/24 14:35 500 MG Aspirin (Aspirin 81mg Ec Tab) 81 mg DAILY PO 07/05/24 09:00 08/04/24 08:59 07/10/24 09:22 81 MG Atorvastatin Calcium (LIPItor 20MG) 20 mg HS PO 07/05/24 21:00 08/04/24 20:59 07/09/24 22:02 20 MG Budesonide (Pulmicort 0.5 Mg/2ml) 0.5 mg BIDRESP IH 07/04/24 18:00 07/06/24 14:21 DC 07/06/24 06:27 0.5 MG Bumetanide (Bumex 1mg Vial) 1 mg BID IVP 07/06/24 09:00 07/09/24 11:28 DC 07/09/24 09:23 1 MG Bumetanide (Bumex 1mg Vial) 1 mg Q8H IVP 07/04/24 13:30 07/06/24 08:38 DC 07/06/24 05:42 1 MG Dobutamine HCl/ Dextrose 250 ml @ 0 mls/hr PROTOCOL IV 07/05/24 14:00 07/06/24 10:18 DC Dobutamine HCl/ Dextrose 250 ml @ 0 mls/hr PROTOCOL IV 07/06/24 10:30 07/06/24 11:33 DC Dobutamine HCl/ Dextrose 250 ml @ 0 mls/hr PROTOCOL IV 07/06/24 12:00 08/05/24 11:59 07/08/24 07:27 1 MLS/HR Dopamine HCl/ Dextrose 250 ml @ 0 mls/hr PROTOCOL IV 07/05/24 13:00 07/05/24 13:48 DC Furosemide (LASix 40MG TAB) 40 mg BID@09,17 PO 07/09/24 17:00 08/08/24 16:59 07/10/24 09:22 40 MG Guaifenesin/ Dextromethorphan (RobiTUSSin DM 200/20MG 10ML) 10 ml Q6H PRN PO COUGH 07/04/24 13:30 08/03/24 13:29 Heparin Sodium (Porcine) (HEParin 5,000 UNIT VIAL) 5,000 unit ONCE SQ 07/04/24 13:00 07/04/24 13:37 DC 07/04/24 12:59 5,000 UNIT Insulin Glargine (LANtus 100 UNITS/ML 10 ML VIAL) 10 units DAILY SQ 07/05/24 09:00 08/04/24 08:59 07/10/24 09:26 10 UNITS Insulin Human Regular (humuLIN R 100 UNIT/ML 3ML) INSULIN SLIDING SCAL... ACHS SQ 07/04/24 16:30 08/03/24 16:29 07/09/24 22:04 2 UNIT Ipratropium Eitzen (AtrovENT UD) 0.5 mg Q6H PRN IH SHORTNESS OF BREATH 07/04/24 14:00 07/06/24 14:21 DC Lactulose (Constulose 20gm/ 30ml Udcup) 20 gm BID PRN PO CONSTIPATION 07/06/24 12:00 08/05/24 11:59 Losartan Potassium (CozAAR 25MG TAB) 25 mg DAILY PO 07/05/24 09:00 07/04/24 16:43 DC Magnesium Sulfate 50 ml @ 0 mls/hr PROTOCOL IV 07/04/24 14:00 08/03/24 13:59 07/09/24 07:01 25 MLS/HR Nitroglycerin (Nitrostat) 0.4 mg AD PRN SL CHEST PAIN 07/04/24 14:00 08/03/24 13:59 Ondansetron HCl (zoFRAN 4MG INJ) 4 mg Q6H PRN IVP NAUSEA/VOMITING 07/04/24 14:00 08/03/24 13:59 Potassium Chloride 100 ml @ 50 mls/hr AD PRN IV POTASSIUM PROTOCOL 07/04/24 20:30 08/03/24 20:29 Potassium Chloride (K-Dur 10meq Sr Tab) 10 meq AD PRN PO POTASSIUM PROTOCOL 07/05/24 09:30 08/03/24 20:29 07/08/24 06:56 10 MEQ Potassium Chloride (K-Dur/Klor-Con 20meq) 10 meq AD PRN PO POTASSIUM PROTOCOL 07/04/24 20:30 07/05/24 09:02 DC Potassium Chloride (KCl 10% Elixir 20meq/15ml) 10 meq AD PRN PO POTASSIUM PROTOCOL 07/04/24 20:30 08/03/24 20:29 07/10/24 06:00 10 MEQ DIAGNOSTICS / RADIOLOGY: [ ] ASSESSMENT: 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, POA Hx of severe suspected Ischemic Cardiomyopathy with LVEF less than 20%, POA Acute Hypoxemic respiratory failure with Cardiogenic Pulmonary edema, POA JOAQUÍN on CKD with Suspected underlying Cardiorenal Syndrome, POA Nephrotic range proteinuria, POA Elevated Troponin, likely due to CHF exacerbation and Demand Ischemia, r/o active ACS, POA Hx of Bilateral Vitreous Hemorrhage with legal blindness, POA Hx of Bilateral Cataracts of the eyes, POA diabetes mellitus type II A1c 9.6 - POA stage III chronic kidney disease - POA hyperlipidemia - POA hypertension - POA Right sided Pleural Effusion, POA cardiorenal syndrome - POA bilateral diabetic or hypertensive retinopathy bilateral diabetic neuropathy former smoker Uncontrolled Hypothyroidism, POA PLAN: Admit to PCCU Acute on chronic combined congestive heart failure exacerbation Severe CHF with EF less than 20 %, stage III diastolic dysfunction Hx of positive stress test in 02/27 Cardiogenic Pulmonary edema with right sided pleural effusion Rule out ACS - Cardiology consult. Appreciate recommendations - Discontinue bumex - Start furosemide 40mg BID - Continue dobutamine drip to be managed by cardiology - Echo showing LVEF < 20% - Trend troponin to r/o active ACS - Hold beta blockers for now given low output state, hold MAKSIM due to JOAQUÍN on CKD - Nitrostat 0.4 mg prn for chest pain - Strict I & Os - Daily weight - Fluid restriction less than 1.5L in 24 hour - Heart healthy diet - Follow hemodynamics JOAQUÍN on CKD Suspected Cardiorenal syndrome Stage III chronic kidney disease Diabetes type II A1c 9.6 Bilateral diabetic/hypertensive retinopathy Bilateral diabetic neuropathy Hypertension -Nephrology consult. Appreciate recommendations - renal ultrasound - Urine protein - Urine creatine - Strict monitoring of intake, output and overall fluid balance - Daily weights - Avoid nephrotoxic medications to the extent possible - Monitor electrolytes and replace as needed - Medications to be dosed according to renal function - Avoid contrast if possible - Maintain blood glucose between 100-180 at all times - Basal Lantus 10 units - Insulin sliding scale for blood glucose management - Hypoglycemia and hyperglycemia protocol in place Acute Hypoxic Respiratory due to Pulmonary edema Right sided Pleural Effusion as per chest xray 07/04/24 c/w IV diuresis No evidence of reactive airway disease, discontinue nebulizer treatments Hx of Bilateral vitreous hemorrhage with legal blindness Hx of bilateral cataracts Hx of retinopathy of bilateral eyes - Patient reports that his vision worsened after receiving anticoagulation and antiplatelet therapy in [facility], he wants to hold off on heparin gtt or full dose Lovenox. I spoke with Dr. Nolan with Ophthalmology who stated that patient has been legally blind since 08/28. Per her, we can proceed with antiplatelet/ anticoagulation as benefits of treating his cardiac comorbidities outweigh the risk of worsening his vision. Patient still wants to hold off on a/c as he worried about losing his vision. Per Dr. Nolan, she may evaluate him in [facility] in the next 2-3 days, if unable to, she recommended close ooutpatient follow up wit h Ophthalmology in clinic Hyperlipidemia - Atorvastatin 20 mg HS - Zofran 4mg q6h prn nausea - Acetaminophen 500 mg PO q6h for pain - DVT prophylaxis - SCD's of bilateral legs - PT/OT - Repeat Labs in the AM - Repeat Chest Xray in the AM - Follow further medical management per Nephrology and Cardiology recommendations Disposition: Remains admitted to the PCU, continue dobutamine drip, pending left heart catheterization today by child's nurse, monitor renal function in a.m.. Plan of action discussed with the patient, all questions answered, agreed and understood the information provided. Total PCU time spent greater than 30 minutes. GARRY GUERRA MD Jul 10, 2024 10:53
[2024-07-10] MEDS ORDERED: LIDOCAINE HCL 400MG/20ML VIAL ONE (12:44)
[2024-07-10] MEDS ORDERED: FENTanyl CITRate PF 50 MCG/1 ML 2ML VIAL ONE (12:44)
[2024-07-10] MEDS ORDERED: IOHEXOL 350 MG/ML 100ML INFUS..BTL IV ONE (12:45)
[2024-07-10] MEDS ORDERED: MIDAZOLAM HCL 1 MG/ML 2ML VIAL ONE (12:45)
[2024-07-10] MEDS ORDERED: NITROGLYCERIN 50MG VIAL ONE (12:45)
[2024-07-10] MEDS ORDERED: niCARDIpine 25MG INJ IV ONE (12:45)
[2024-07-10] MEDS ORDERED: HEParin-NS 1,000 UNIT/500 ML 0 ML IV ONE (12:45)
--- NOTE | 2024-07-10 13:27 | OP ---
Operative Note: PROCEDURES PERFORMED: 1. Left heart catheterization. 2. Selective coronary angiography. 3. Moderate sedation INDICATION FOR PROCEDURE: DESCRIPTION OF PROCEDURE: The patient was brought to the cardiac catheterizati on lab in fasting state, informed consent was obtained and the patient was prepped and draped in sterile fashion. Mild sedation was administered via versed and fentanyl. I was present during administration of sedation. The right femoral artery region was then anesthetized via 10 mL of 2% lidocaine and the right fenoral artery was accessed via seldinger technique and a 6-[place] femoral arterial sheath was advanced over a guidewire using modified Seldinger technique.Next, a 5-[place] FL4 and FR4 catheter were advanced over the guidewire to the level of the ascending aorta. The catheter(s) was used to selectively engage the left main coronary artery and RCA. The right coronary artery and LM and its branches were then imaged in multiple planes and views. At the conclusion of the procedure, the patient had the femoral arterial sheath removed in the cardiac catheterization lab with hemostasis obtained via manual pressure and the patient was transferred to the Dining Room Cashier observation area. Blood loss was minimal. Moderate sedation: Moderate sedation was used during the procedure, moderate sedation was started at 1300 and completed at 1320 . Patient tolerated the procedure well.Continuous hemodynamic and physiological monitoring was present throughout the procedure. ASA and Mallampatti were assessed prior to the procedure as well. SELECTIVE CORONARY ANGIOGRAPHY: 1. Left main: The left main bifurcates into the left anterior descending and circumflex coronary artery. NO significant disease 2. Left anterior descending: The left anterior descending coronary artery gives rise to diagonal(s) and terminates as the apical recurrent branch. total occlusion of the prox LAD, small mid and distal LAD filled via collaterals 3. Circumflex: The circumflex coronary artery is noted to provide obtuse marginal(s). First obtuse marginal artery had 80% stenosis 4. Right coronary artery: The right coronary artery is dominant and gives PDA and NOÉ. The proximal RCA has 90% disease 5. Left ventricular end-diastolic pressure is elevated. There was no gradient noted upon pullback. Impression Multivessel CAD total occlusion of the prox LAD, small mid and distal LAD filled via collaterals First obtuse marginal artery had 80% stenosis The proximal RCA has 90% disease The LAD and RCA fill via collaterals PLAN: CVT surgery eval Aggressive risk factors modification Maximize medical therapy GUSTAVO PRUITT MD Jul 10, 2024 13:27
--- NOTE | 2024-07-10 13:30 | PN ---
CARDIOLOGY Reason for consult: CHF HPI/story at presentation: This is a pleasant 64-year-old male with past medical history of the present with complaints of shortness of breath, was diagnosed with CHF exacerbation cardiology was consulted for further evaluation management. Known history of cardiomyopathy, ejection fraction 15 to 20% with previous stress testing with no ischemia or infarction pattern, 02/2024 he has been noncompliant with Lasix at home, here for further eval Management Subjective: 07/04/2024, shortness of breath, lower extremity edema feeling better 07/06/2024 patient seen and evaluated at bedside No events were reported overnight Patient reports overall feeling better today Continues on IV dobutamine at 2.5 07/08/2024 edema and sob better 07/09/2024 no overnight events Past medical history: See below Allergies, Meds See chart Review of systems Review of Systems Constitutional: Negative for chills and fever. HENT: Negative for ear discharge and ear pain. Eyes: Negative for photophobia and discharge. Respiratory: Negative for cough, sputum production and stridor. Cardiovascular: Negative for chest pain and palpitations. Gastrointestinal: Negative for diarrhea and vomiting. Genitourinary: Negative for frequency. Musculoskeletal: Negative for myalgias. Skin: Negative for rash. Neurological: Negative for focal weakness and seizures. Endo/Heme/Allergies: Negative for polydipsia. Psychiatric/Behavioral: Negative for hallucinations. Vitals see chart PHYSICAL EXAMINATION GENERAL: The patient is alert and oriented*3 HEENT: Nonicteric sclerae, non traumatic HEART: Regular rate and rhythm with no murmurs LUNGS: Clear to auscultation bilaterally ABDOMEN: No acute issues, non tender GENITAL, RECTAL: deferred SKIN: No rash NEUROLOGIC: NFND EXTREMITIES:EDEMA 06/2024 ASSESSMENT EXACERBATION OF CHF, CARDIOMYOPATHY Noncompliant with diuretics at home History of suspected ischemic cardiomyopathy Stress test with infarction pattern, 02/2024 Ejection fraction of 15 to 20%, 06/2024 On diuresis with Bumex, 06/2024 Normal venous Dopplers, 06/2024 NSTEMI Initial troponin of 1600, trending down HEMATURIA Moderate hematuria, 06/2024 CHRONIC KIDNEY DISEASE Stage III 1.8 at presentation Creatinine at discharge from hospital, 06/2024 was 2.2 HYPERTENSION HYPERLIPIDEMIA DIABETES, TOBACCO USE CORE MEASURES Not on guideline directed medical therapy for cardiomyopathy given renal dysfunction OTHER MEDICAL PROBLEMS Anxiety disorder Diabetic neuropathy PLAN 07/04/2024 patient with NSTEMI, CHF exacerbation at presentation. Although type II elevation is possible, given presentation, will need to ensure that he does not have underlying ACS. EKG with non specific changes and no chest pain. Ideally, needs to be on anticoagulation with heparin to help with potential ACS. However, at this time, patient is concerned about increased retinal bleeding with anticoagulation and had not been on antiplatelets or anticoagulants before for the same reason. Although risk of myocardial injury is a concern, troponins are trending down and given risk of visual loss, after extensive discussion with the patient, plan is not to anticoagulate at this time. Will repeat echocardiogram to reassess ejection fraction. Post diuresis, may consider ischemic evaluation as needed. Also, underlying cardiorenal syndrome and therefore, may need dobutamine support for diuresis. Will follow closely 07/05/2024 breathing better, -600 on output, Remains on Bumex 3 times daily, also got a dose of metolazone this morning, potassium is being replaced. Will add a small dose of dobutamine to help with diuresis. Do not titrate and leave at 2.5. Hopefully, this helps his renal function as well. Primary team reached out to ophthalmology on-call and per ophthalmology, may consider anticoagulation if needed/antithrombotics if needed in spite of previous history of vitreal hemorrhage and proliferative retinopathy given risk and benefit. Patient himself would like to stay of antithrombotics if possible. Troponins have trended down and at this time, plan remains to stay off anticoagulation. Will consider coronary angiography prior to discharge depending on renal function and clinical course. Continue diuresis. 07/06/2024 patient is Bumex was decreased to every 12 hours. Attempted to increase dobutamine drip to 5. The patient experienced sinus tachycardia rate of 120 to 130 shortly after. Dobutamine drip was decreased back to 2.5. Creatinine increased to 2.4 today. Continue with Nephrology recommendations Repeat BMP in the AM Avoid any nephrotoxic medications as possible Will discuss coronary angiogram if renal function improves. ; Agree, Bumex was tapered because of worsening renal function. Remains on dobutamine. Having issues with anxiety, doing well. Seen and examined around 8 PM. 07/07/2024 Doing well, ongoing diuresis, issues with anxiety yesterday but has done well. Did receive a dose of Xanax yesterday. Continues to diurese, edema still present. Remains on dobutamine at 2.5. Creatinine today is better at 2.1. Continue current Bumex and dobutamine regimen. Plans remain for eventual cardiac catheterization once renal function improves and diuresis is complete. No plans for anticoagulation as above. 07/08/2024 Has had about 7 L out yesterday continues to diurese well. Remains on dobutamine with mild tachycardia. Potassium is being replaced. lower extremity edema progressively improving. Tentative plan for cardiac catheterization on Wednesday to further evaluate underlying cardiomyopathy. 07/09/2024 Bumex has been transitioned to Lasix. Plan for cardiac catheterization tomorrow. Will try to limit contrast use during procedure as much as possible. No plans for anticoagulation perioperatively given eye issues. Therefore, we will go femoral instead of radial approach. Per discussion with ophthalmology at admission, anticoagulation is okay if necessary however, patient still remains hesitant. Further recommendations on the basis of findings on cardiac catheterization. Only diagnostic planned at this point 07/10/2024 status post cardiac catheterization today showing multivessel coronary artery disease. Mid to distal LAD is a small vessel that fills via collaterals and is totally occluded prox, circumflex with severe disease in the RCA with severe disease as well. Underlying cardiomyopathy increases his overall risk. We will get CV surgery to see patient, however, even though patient may not need long-term antithrombotics after bypass, may need perioperative anticoagulation. This may be a concern in the setting of intra-ocular bleed issues and will need ophthalmology clearance. Appreciate evaluation. Only 10 cc of contrast was used during the procedure, risk of ISHAN is thought to be low ATTESTATION I was involved substantially in the care of this patient Number and complexity of problems addressed: 1 acute illness with severe exacerbation Amount and or complexity of data Review of prior external note(s) from each unique source: 2+ Ordering of each unique test : 0 Review of the result(s) of each unique test: 2+ Assessment requiring an independent historian(s): No Independent interpretation of test performed by another MD/QHCP/appropriate source (not separately reported) : No Discussion of management or test interpretation with external MD/QHCP/appropriate source (not separately reported) : No Risk status (cardiac, billing related): High Vitals/Labs Vital Signs Date Time Temp Pulse Resp B/P (MAP) Pulse Ox O2 Delivery O2 Flow Rate FiO2 07/10/24 11:44 97.9 122 16 100/73 98 Room Air 07/10/24 07:25 0 21 Laboratory Tests 07/10/24 03:23 Medications Current Medications Aspirin 325 mg ONCE ONCE PO Last administered on 07/04/24at 12:59; Start 07/04/24 at 13:00; Stop 07/04/24 at 13:01; Status DC Heparin Sodium (Porcine) 5,000 unit ONCE SQ Last administered on 07/04/24at 12:59; Start 07/04/24 at 13:00; Stop 07/04/24 at 13:37; Status DC Guaifenesin/ Dextromethorphan 10 ml Q6H PRN PO; Start 07/04/24 at 13:30; Stop 08/03/24 at 13:29 Bumetanide 1 mg Q8H IVP Last administered on 07/06/24at 05:42; Start 07/04/24 at 13:30; Stop 07/06/24 at 08:38; Status DC Insulin Human Regular INSULIN SLIDING SCAL... ACHS SQ Last administered on 07/09/24at 22:04; Start 07/04/24 at 16:30; Stop 08/03/24 at 16:29 Magnesium Sulfate 50 ml @ 0 mls/hr PROTOCOL IV Last administered on 07/09/24at 07:01; Start 07/04/24 at 14:00; Stop 08/03/24 at 13:59 Acetaminophen 500 mg Q6H PRN PO Last administered on 07/06/24at 14:35; Start 07/04/24 at 14:00; Stop 08/03/24 at 13:59 Ondansetron HCl 4 mg Q6H PRN IVP; Start 07/04/24 at 14:00; Stop 08/03/24 at 13:59 Ipratropium [place] 0.5 mg Q6H PRN IH; Start 07/04/24 at 14:00; Stop 07/06/24 at 14:21; Status DC Budesonide 0.5 mg BIDRESP IH Last administered on 07/06/24at 06:27; Start 07/04/24 at 18:00; Stop 07/06/24 at 14:21; Status DC Aspirin 81 mg DAILY PO Last administered on 07/10/24at 09:22; Start 07/05/24 at 09:00; Stop 08/04/24 at 08:59 Nitroglycerin 0.4 mg AD PRN SL; Start 07/04/24 at 14:00; Stop 08/03/24 at 13:59 Losartan Potassium 25 mg DAILY PO; Start 07/05/24 at 09:00; Stop 07/04/24 at 16:43; Status DC Potassium Chloride 100 ml @ 50 mls/hr AD PRN IV; Start 07/04/24 at 20:30; Stop 08/03/24 at 20:29 Potassium Chloride 10 meq AD PRN PO Last administered on 07/10/24at 06:00; Start 07/04/24 at 20:30; Stop 08/03/24 at 20:29 Potassium Chloride 10 meq AD PRN PO; Start 07/04/24 at 20:30; Stop 07/05/24 at 09:02; Status DC Potassium Chloride 40 meq ONCE ONCE PO Last administered on 07/04/24at 20:57; Start 07/04/24 at 21:00; Stop 07/04/24 at 21:01; Status DC Potassium Chloride 100 ml @ 100 mls/hr ONCE ONCE IV; Start 07/05/24 at 00:00; Stop 07/05/24 at 00:59; Status DC Alprazolam 0.25 mg ONCE ONCE PO Last administered on 07/04/24at 23:47; Start 07/04/24 at 23:00; Stop 07/04/24 at 23:01; Status DC Insulin Glargine 10 units DAILY SQ Last administered on 07/10/24at 09:26; Start 07/05/24 at 09:00; Stop 08/04/24 at 08:59 Metolazone 5 mg ONCE ONCE PO Last administered on 07/05/24at 09:24; Start 07/05/24 at 09:00; Stop 07/05/24 at 09:01; Status DC Potassium Chloride 10 meq AD PRN PO Last administered on 07/08/24at 06:56; Start 07/05/24 at 09:30; Stop 08/03/24 at 20:29 Atorvastatin Calcium 20 mg HS PO Last administered on 07/09/24at 22:02; Start 07/05/24 at 21:00; Stop 08/04/24 at 20:59 Dopamine HCl/ Dextrose 250 ml @ 0 mls/hr PROTOCOL IV; Start 07/05/24 at 13:00; Stop 07/05/24 at 13:48; Status DC Dobutamine HCl/ Dextrose 250 ml @ As Directed STK-MED ONCE IV Last administered on 07/05/24at 13:52; Start 07/05/24 at 13:36; Stop 07/05/24 at 13:41; Status DC Dobutamine HCl/ Dextrose 250 ml @ 0 mls/hr PROTOCOL IV; Start 07/05/24 at 14:00; Stop 07/06/24 at 10:18; Status DC Bumetanide 1 mg BID IVP Last administered on 07/09/24at 09:23; Start 07/06/24 at 09:00; Stop 07/09/24 at 11:28; Status DC Dobutamine HCl/ Dextrose 250 ml @ 0 mls/hr PROTOCOL IV; Start 07/06/24 at 10:30; Stop 07/06/24 at 11:33; Status DC Dobutamine HCl/ Dextrose 250 ml @ 0 mls/hr PROTOCOL IV Last administered on 07/08/24at 07:27; Start 07/06/24 at 12:00; Stop 08/05/24 at 11:59 Lactulose 20 gm BID PRN PO; Start 07/06/24 at 12:00; Stop 08/05/24 at 11:59 Alprazolam 0.25 mg ONCE ONCE PO Last administered on 07/06/24at 23:06; Start 07/06/24 at 23:00; Stop 07/06/24 at 23:01; Status DC Alprazolam 0.25 mg ONCE ONCE PO Last administered on 07/07/24at 23:42; Start 07/08/24 at 00:00; Stop 07/08/24 at 00:01; Status DC Furosemide 40 mg BID@09,17 PO Last administered on 07/10/24at 09:22; Start 07/09/24 at 17:00; Stop 08/08/24 at 16:59 Lidocaine HCl 20 ml STK-MED ONCE .ROUTE; Start 07/10/24 at 12:44; Stop 07/10/24 at 12:45; Status DC Fentanyl Citrate 100 mcg STK-MED ONCE .ROUTE; Start 07/10/24 at 12:44; Stop 07/10/24 at 12:45; Status DC Midazolam HCl 2 mg STK-MED ONCE .ROUTE; Start 07/10/24 at 12:45; Stop 07/10/24 at 12:45; Status DC Iohexol 35,000 mg STK-MED ONCE IV; Start 07/10/24 at 12:45; Stop 07/10/24 at 12:45; Status DC Nicardipine HCl 25 mg STK-MED ONCE IV; Start 07/10/24 at 12:45; Stop 07/10/24 at 12:45; Status DC Heparin Sodium/ Sodium Chloride 0 ml @ As Directed STK-MED ONCE IV; Start 07/10/24 at 12:45; Stop 07/10/24 at 12:46; Status DC Nitroglycerin 50 mg STK-MED ONCE .ROUTE; Start 07/10/24 at 12:45; Stop 07/10/24 at 12:46; Status DC GUSTAVO PRUITT MD Jul 10, 2024 13:29
[2024-07-10 16:35] LABS: ABG PCO2 41 mmHg (35-48); ABG PH 7.471 (7.350-7.450); CARBON MONOXIDE 0.9 % (0.5-1.5); DEVICE COMMENT RR RA; HHb 6.9; PO2, ARTERIAL BG 65.4 mmHg (83.0-108.0)
--- NOTE | 2024-07-10 22:38 | HMCIMG ---
US CAROTID DUPLEX HISTORY: Preop COMPARISON: None TECHNIQUE: Duplex carotid arterial Doppler ultrasound study was performed. FINDINGS: The common, internal and external carotid arteries are visualized. The peak systolic velocities of right common carotid artery is 54 centimeters per second, right internal carotid artery is 64 centimeters per second, right external carotid artery is 75 centimeters per second, and right vertebral artery is 30 centimeters per second. Right internal carotid artery to right common carotid artery ratio is 1.2. Right vertebral artery is seen with antegrade flow. The peak systolic velocities of left common carotid artery is 66 centimeters per second, left internal carotid artery is 63 centimeters per second, left external carotid artery is 71 centimeters per second, and left vertebral artery is 31 centimeters per second. Left internal carotid artery to left common carotid artery ratio is 1.0. Left vertebral artery is seen with antegrade flow. There are bilateral echogenic plaques. IMPRESSION: 1. No hemodynamically significant lesion is seen of either extracranial carotid artery system.
--- NOTE | 2024-07-10 23:47 | PN ---
PROGRESS REPORT AND CONSULTATION NOTE HISTORY: This is a 64-year-old gentleman and patient of Dr. Coyle, presents with coronary artery disease and was admitted to the hospital for further workup and underwent a cardiac catheterization, demonstrates ejection fraction of less than 20%. PAST MEDICAL HISTORY: Significant for hypertension, hyperlipidemia, diabetes mellitus and CKD as well as proliferative retinopathy with bilateral vitreous hemorrhage. He has cataracts and is legally blind. The patient is a former smoker who is currently in . I have had the opportunity to review the films and discussed the case with Dr. Coyle. The patient does have surgical indications, however, has had multiple risk factors for morbidity and mortality. I have discussed with the patient these risk factors and how they associated with the procedure as depicted on the [employer] clinical current database. The patient is thinking about surgery. As the patient decided to go for surgery and we think he is a good surgical candidate, he should more than likely have a preoperative placement of intraaortic balloon pump over 3.5 Impella. We will follow with you. TID: [id number] RECEIPT: [id number]
[2024-07-11] VITALS (10 sets, daily range): BP systolic 110–120; BP diastolic 65–82; PULSE 110–120; RESP 16–18; TEMP 97.7–98.6; O2SAT 97–98
[2024-07-11] MEDS: ALPRAZolam 0.25 MG TABLET PO ONE ×2 (01:33→21:59)
[2024-07-11 03:38] LABS: BASOPHILS # (AUTO) 0.05 K/uL (0.00-0.20); BASOPHILS % (AUTO) 0.8 % (0.0-5.0); EOSINOPHILS # (AUTO) 0.16 K/uL (0.00-0.70); EOSINOPHILS % (AUTO) 2.5 % (0.0-8.0); HEMATOCRIT 37.5 % (42-54); IMMATURE GRANULOCYTE ABSOLUTE 0.03 K/uL (0-1); LYMPHOCYTES # (AUTO) 1.2 K/uL (1.0-4.8); LYMPHOCYTES % (AUTO) 18.3 % (21.0-51.0); MEAN CORPUSCULAR HEMOGLOBIN 27.1 pg (27.0-33.0); MEAN CORPUSCULAR VOLUME 84.8 fL (79-99); MONOCYTES # (AUTO) 0.9 K/uL (0.1-1.0); MONOCYTES % (AUTO) 13.9 % (3.0-13.0); NEUTROPHILS # (AUTO) 4.2 K/uL (1.8-7.7); PLATELET COUNT (AUTO) 217 K/uL (130-400); RED BLOOD CELL COUNT(AUTO) 4.42 MIL/uL (4.50-6.20); RED CELL DISTRIBUTION WIDTH 16.2 % (11.0-15.5); WHITE BLOOD COUNT (AUTO) 6.5 K/uL (4.8-10.8)
[2024-07-11 03:56] LABS: ALBUMIN 2.4 g/dL (3.5-5.0); BILIRUBIN,TOTAL 0.8 mg/dL (0.2-1.0); CREATININE 2.5 mg/dL (0.5-1.3); MAGNESIUM 2.1 mg/dL (1.80-2.40); TOTAL PROTEIN, SERUM 7.5 g/dL (6.0-8.3)
--- NOTE | 2024-07-11 09:48 | PN ---
SUBJECTIVE: A 64-year-old male with a history of diabetes mellitus and hypertension, initially presented with congestive heart failure. The patient did undergo coronary catheterization that revealed multivessel disease. The patient has a history of known cardiomyopathy. He has had acute on chronic renal failure in the hospital. Creatinine has been elevated and the patient is being seen as a followup visit for all of the above. REVIEW OF SYSTEMS: GENERAL: He is feeling weak and tired. HEENT: No change in vision. No change in hearing. CARDIOVASCULAR: There is no current chest pain or palpitations. PULMONARY: Shortness of breath is improved. GASTROINTESTINAL: He is tolerating a diet. MUSCULOSKELETAL: Complains of weakness. PHYSICAL EXAMINATION: VITAL SIGNS: Blood pressure 111/67, pulse in the 100s. GENERAL: Chronically ill male, lying in bed in the medical floor. HEENT: Head is atraumatic. Pupils equal, roving to light. Oropharynx is without exudate. Nares clear. NECK: There is no JVP. There is no thyromegaly, no mass. CARDIOVASCULAR: Regular. There is no S3, S4 gallop. LUNGS: Coarse with equal thoracic movement. ABDOMEN: Soft, nondistended, nontender. EXTREMITIES: Reveal no clubbing, no cyanosis. NEUROLOGIC: He is awake. He is alert. LABORATORY DATA: Sodium 133, potassium 3, BUN 41, creatinine is 2.5. Hemoglobin 12, hematocrit 37. IMPRESSION: * Acute on chronic renal failure. * Cardiomyopathy. * Coronary artery disease. * Electrolyte abnormalities. PLAN: The patient does have significant renal dysfunction. The patient did undergo coronary catheterization that revealed significant coronary artery disease. The patient will be seen by Cardiovascular Surgery. Electrolytes have all been aggressively repleted. He remains on the diuretics. We will follow closely. TID: [id number] RECEIPT: [id number]
--- NOTE | 2024-07-11 11:40 | PN ---
[facility] PROGRESS NOTE Date of Service: Jul 11, 2024 Time of Service: 11:33 SUBJECTIVE: 07/05 Pt seen at bedside, no acute events overnight. Shortness of breath has improved, however he still has orthopnea and cough. Lower extremities with 2+ pitting edema. Will continue with diuresis, further care per cardiology. He is hemodynamically stable. Creatinine improved from 2.0 down to 1.9, sodium decreased from 138 down to 130, remainder of his labs are relatively unremarkable. 07/06 Pt seen at bedside, no acute events overnight. He has no complaints today. Diuresing well with approximately 2.5L urine output in 24 hours, weight decreased from 91.1 down to 89.2kg. Creatinine increased from 1.9 up to 2.4, bumex decreased to 1mg BID, pt continues on dobutamine drip. Remainder of his labs are relatively unremarkable 07/07 Pt seen at bedside, no acute events overnight. He remains tachycardic, HR in the 120s. He continues to diurese, continue bumex 1mg BID per cardiology. Sodium stable at 131, similar to yesterday, potassium improved from 3.1 up to 3.5 with repletion, will continue to trend, creatinine decreased from 2.4 down to 2.1. Discussed with cardiology who believes the tachycardia is secondary to dobutamine however it is helping with the renal functio and would like to continue overnight and reassess renal function in the am. If improving will likely wean off the dobutamine. 07/08 Pt seen at bedside, no acute events overnight. He remains tachycardia. Creatinine stable at 2.1, CO2 elevated at 36, similar to yesterday, BNP improved from 3830 down to 1850, remainder of his labs are relatively unremarkable. Pending weaning of dobutamine by cardiology 07/09 Pt continues with diuresis per cardiology. Pending possible cardiac cath tomorrow, will follow up with cardiology. He remains tachycardic, creatinine improved from 2.1 down to 1.8, approximately 1.7L urine output in the last 24 hours, further care per cardiology. 07/10 the patient has been seen and examined during my rounding, no acute events overnight, patient on dobutamine drip, blood pressure 116/77, heart rate of 110, afebrile, saturating normal on room air. The patient is alert oriented x3, awaiting left heart catheterization by police manager today. Denied chest pain, shortness shortness for breath, no nausea, no vomiting. No family members at bedside during my visit. 07/11 the patient has been seen and examined during my rounding, no acute events overnight, remains on dobutamine drip, underwent left heart catheterization yesterday, tolerated procedure well, findings discussed, all questions answered. He remains hemodynamically stable, BP 123/56, afebrile, saturating normal on room air. He denied chest pain, no shortness a breath, no nausea, no vomiting, no abdominal discomfort. Creatinine function today worse compared to yesterday at 2.5. He denies any difficulty urinating. REVIEW OF SYSTEMS 12 point ROS negative unless noted in HPI PHYSICAL EXAM GENERAL APPEARANCE: The patient is awake, alert, and oriented, in no acute cardiopulmonary distress. NEUROLOGICAL: Cranial nerves II-XII grossly intact. Motor is 5/5 in bilateral upper and lower extremities proximal to distal. No sensory deficits. HEENT: Face is symmetric. Pupils are equal and reactive. Extraocular movements are intact. NECK: Supple. No JVD. No thyromegaly. No submental, submandibular, pre- /postauricular, occipital or supraclavicular lymphadenopathy. CHEST: Normal chest expansion. No Telemetry. LUNGS: bilateral lower lobe crackles CARDIOVASCULAR: Regular. S1 and S2 normal. No appreciable rubs, murmurs or gallops. ABDOMEN: Soft, nontender, and nondistended. There is no rebound, voluntary guarding, or rigidity. : Deferred. No Guillermo. EXTREMITIES: 2+ bilateral lower leg pitting edema. not cyanotic. No clubbing. Good capillary refill. SKIN: No skin breakdown. Vital Signs (last 8hr) Date Time Temp Pulse Resp B/P (MAP) Pulse Ox O2 Delivery O2 Flow Rate FiO2 07/11/24 11:09 123/56 07/11/24 08:04 97.9 114 16 111/67 100 Room Air 07/11/24 04:18 98.4 110 18 110/70 97 Room Air LABS: Laboratory: Test 07/11/24 05:03 07/11/24 03:32 07/10/24 16:34 07/10/24 03:23 Range/Units Whole Blood Glucose 101 70-110 MG/DL White Blood Count 6.5 4.8-10.8 K/uL Red Blood Count 4.42 L 4.50-6.20 MIL/uL Hemoglobin 12.0 L 14.0-18.0 g/dL Hematocrit 37.5 L 42-54 % Mean Corpuscular Volume 84.8 79-99 fL Mean Corpuscular Hemoglobin 27.1 27.0-33.0 pg Mean Corpuscular Hemoglobin Concent 32.0 32.0-36.0 g/dL Red Cell Distribution Width 16.2 H 11.0-15.5 % Platelet Count 217 130-400 K/uL Mean Platelet Volume 9.9 7.5-10.5 fL Immature Granulocyte % (Auto) 0.5 0-1 % Neutrophils (%) (Auto) 64.0 40.0-77.0 % Lymphocytes (%) (Auto) 18.3 L 21.0-51.0 % Monocytes (%) (Auto) 13.9 H 3.0-13.0 % Eosinophils (%) (Auto) 2.5 0.0-8.0 % Basophils (%) (Auto) 0.8 0.0-5.0 % Neutrophils # (Auto) 4.2 1.8-7.7 K/uL Lymphocytes # (Auto) 1.2 1.0-4.8 K/uL Monocytes # (Auto) 0.9 0.1-1.0 K/uL Eosinophils # (Auto) 0.16 0.00-0.70 K/uL Basophils # (Auto) 0.05 0.00-0.20 K/uL Absolute Immature Granulocyte (auto 0.03 0-1 K/uL Nucleated Red Blood Cells 0.0 0.0-0.19 % Sodium Level 133 L 136-145 mmol/L Potassium Level 3.0 *L 3.5-5.1 mmol/L Chloride Level 96 L 101-111 mmol/L Carbon Dioxide Level 35 H 21-32 mmol/L Blood Urea Nitrogen 41 H 7-18 mg/dL Creatinine 2.5 H 0.5-1.3 mg/dL Glomerular Filtration Rate Calc 28 >90 mL/min Random Glucose 104 70-105 mg/dL Total Calcium 8.6 8.5-10.1 mg/dL Magnesium Level 2.10 1.80-2.40 mg/dL Total Bilirubin 0.8 0.2-1.0 mg/dL Aspartate Amino Transf (AST/SGOT) 40 H 10-37 U/L Alanine Aminotransferase (ALT/SGPT) 29 12-78 U/L Alkaline Phosphatase 153 H 50-136 U/L Total Protein 7.5 6.0-8.3 g/dL Albumin 2.4 L 3.5-5.0 g/dL Blood Gas Specimen Type Arterial Arterial Blood pH 7.471 H 7.350-7.450 Arterial Blood Partial Pressure CO2 41 35-48 mmHg Arterial Blood Partial Pressure O2 65.4 L 83.0-108.0 mmHg Arterial Blood HCO3 29.0 H 21.0-28.0 mmol/L Arterial Blood Oxygen Saturation 93.0 L 94.0-98.0 % Arterial Blood Base Excess 5.0 H -2.0-3.0 mmol/L Hemoglobin (Blood Gas) 13.3 L 13.5-17.5 g/dL Sodium (Blood Gas) 135 L 136-145 MMOL/L Bedside Potassium (Blood Gas) 3.5 3.4-4.5 MMOL/L Bedside Chloride (Blood Gas) 97 L 98-107 MMOL/L Bedside Glucose (Blood Gas) 150 H 65-95 MG/DL Bedside Ionized Calcium (Blood Gas) 1.14 L 1.15-1.33 MMOL/L Bedside Lactic Acid (Blood Gas) 2.50 H 0.36-0.75 MMOL/L Blood Gas Temperature 37.0 35.5-37.0 CELSIUS FiO2 21.0 % Blood Gas Specimen Comment RR RA Prothrombin Time 10.8 9.6-11.6 SEC Prothromb Time International Ratio 1.00 0.85-1.15 Activated Partial Thromboplast Time 25.9 L 26.3-35.5 SEC Current Medications Medications (Trade) Dose Ordered Sig/Anjelica Route PRN Reason Start Time Stop Time Status Last Admin Dose Admin Acetaminophen (TYLenol 500MG TAB) 500 mg Q6H PRN PO MILD PAIN (1-3) 07/04/24 14:00 08/03/24 13:59 07/06/24 14:35 500 MG Aspirin (Aspirin 81mg Ec Tab) 81 mg DAILY PO 07/05/24 09:00 08/04/24 08:59 07/11/24 08:56 81 MG Atorvastatin Calcium (LIPItor 20MG) 20 mg HS PO 07/05/24 21:00 08/04/24 20:59 07/10/24 21:22 20 MG Budesonide (Pulmicort 0.5 Mg/2ml) 0.5 mg BIDRESP IH 07/04/24 18:00 07/06/24 14:21 DC 07/06/24 06:27 0.5 MG Bumetanide (Bumex 1mg Vial) 1 mg BID IVP 07/06/24 09:00 07/09/24 11:28 DC 07/09/24 09:23 1 MG Bumetanide (Bumex 1mg Vial) 1 mg Q8H IVP 07/04/24 13:30 07/06/24 08:38 DC 07/06/24 05:42 1 MG Dobutamine HCl/ Dextrose 250 ml @ 0 mls/hr PROTOCOL IV 07/05/24 14:00 07/06/24 10:18 DC Dobutamine HCl/ Dextrose 250 ml @ 0 mls/hr PROTOCOL IV 07/06/24 10:30 07/06/24 11:33 DC Dobutamine HCl/ Dextrose 250 ml @ 0 mls/hr PROTOCOL IV 07/06/24 12:00 08/05/24 11:59 07/11/24 11:09 9 MLS/HR Dopamine HCl/ Dextrose 250 ml @ 0 mls/hr PROTOCOL IV 07/05/24 13:00 07/05/24 13:48 DC Furosemide (LASix 40MG TAB) 40 mg BID@09,17 PO 07/09/24 17:00 08/08/24 16:59 07/11/24 08:56 40 MG Guaifenesin/ Dextromethorphan (RobiTUSSin DM 200/20MG 10ML) 10 ml Q6H PRN PO COUGH 07/04/24 13:30 08/03/24 13:29 Heparin Sodium (Porcine) (HEParin 5,000 UNIT VIAL) 5,000 unit ONCE SQ 07/04/24 13:00 07/04/24 13:37 DC 07/04/24 12:59 5,000 UNIT Insulin Glargine (LANtus 100 UNITS/ML 10 ML VIAL) 10 units DAILY SQ 07/05/24 09:00 08/04/24 08:59 07/11/24 08:54 10 UNITS Insulin Human Regular (humuLIN R 100 UNIT/ML 3ML) INSULIN SLIDING SCAL... ACHS SQ 07/04/24 16:30 08/03/24 16:29 07/10/24 21:23 2 UNIT Ipratropium [place] (AtrovENT UD) 0.5 mg Q6H PRN IH SHORTNESS OF BREATH 07/04/24 14:00 07/06/24 14:21 DC Lactulose (Constulose 20gm/ 30ml Udcup) 20 gm BID PRN PO CONSTIPATION 07/06/24 12:00 08/05/24 11:59 Losartan Potassium (CozAAR 25MG TAB) 25 mg DAILY PO 07/05/24 09:00 07/04/24 16:43 DC Magnesium Sulfate 50 ml @ 0 mls/hr PROTOCOL IV 07/04/24 14:00 08/03/24 13:59 07/09/24 07:01 25 MLS/HR Nitroglycerin (Nitrostat) 0.4 mg AD PRN SL CHEST PAIN 07/04/24 14:00 08/03/24 13:59 Ondansetron HCl (zoFRAN 4MG INJ) 4 mg Q6H PRN IVP NAUSEA/VOMITING 07/04/24 14:00 08/03/24 13:59 Potassium Chloride 100 ml @ 50 mls/hr AD PRN IV POTASSIUM PROTOCOL 07/04/24 20:30 08/03/24 20:29 Potassium Chloride (K-Dur 10meq Sr Tab) 10 meq AD PRN PO POTASSIUM PROTOCOL 07/05/24 09:30 08/03/24 20:29 07/11/24 06:05 10 MEQ Potassium Chloride (K-Dur/Klor-Con 20meq) 10 meq AD PRN PO POTASSIUM PROTOCOL 07/04/24 20:30 07/05/24 09:02 DC Potassium Chloride (KCl 10% Elixir 20meq/15ml) 10 meq AD PRN PO POTASSIUM PROTOCOL 07/04/24 20:30 08/03/24 20:29 07/10/24 06:00 10 MEQ DIAGNOSTICS / RADIOLOGY: [ ] ASSESSMENT: 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, POA Hx of severe suspected Ischemic Cardiomyopathy with LVEF less than 20%, POA Status post left heart catheterization 07/10/2024 findings of multivessel CAD Acute Hypoxemic respiratory failure with Cardiogenic Pulmonary edema, POA JOAQUÍN on CKD with Suspected underlying Cardiorenal Syndrome, POA Nephrotic range proteinuria, POA Elevated Troponin, likely due to CHF exacerbation and Demand Ischemia, r/o active ACS, POA Hx of Bilateral Vitreous Hemorrhage with legal blindness, POA Hx of Bilateral Cataracts of the eyes, POA diabetes mellitus type II A1c 9.6 - POA stage III chronic kidney disease - POA hyperlipidemia - POA hypertension - POA Right sided Pleural Effusion, POA cardiorenal syndrome - POA bilateral diabetic or hypertensive retinopathy bilateral diabetic neuropathy former smoker Uncontrolled Hypothyroidism, POA PLAN: Admit to PCCU Acute on chronic combined congestive heart failure exacerbation Severe CHF with EF less than 20 %, stage III diastolic dysfunction Hx of positive stress test in 02/27 Cardiogenic Pulmonary edema with right sided pleural effusion Rule out ACS - continue to follow Cardiology input and recommendation - continue dobutamine drip -echocardiogram with LVEF less than 20% - status post left heart catheterization 07/10/2024 finding of multivessel CAD -Cardiothoracic surgery consultation requested, input noted and appreciated, patient will require CABG -worsening renal function, we will request Nephrology consultation - Strict I & Os - Daily weight - Fluid restriction less than 1.5L in 24 hour - Heart healthy diet - Follow hemodynamics JOAQUÍN on CKD Suspected Cardiorenal syndrome Stage III chronic kidney disease Diabetes type II A1c 9.6 Bilateral diabetic/hypertensive retinopathy Bilateral diabetic neuropathy Hypertension -continue to follow Nephrology input and recommendation - renal ultrasound no obstruction -continue to monitor renal function in a.m. - Strict monitoring of intake, output and overall fluid balance - Daily weights - Avoid nephrotoxic medications to the extent possible - Monitor electrolytes and replace as needed - Medications to be dosed according to renal function Acute Hypoxic Respiratory due to Pulmonary edema Right sided Pleural Effusion as per chest xray 07/04/24 No evidence of reactive airway disease, discontinue nebulizer treatments Hx of Bilateral vitreous hemorrhage with legal blindness Hx of bilateral cataracts Hx of retinopathy of bilateral eyes - Patient reports that his vision worsened after [place] anticoagulation and [place] [facility] [place] wants to hold off on heparin gtt or full dose Lovenox. I spoke with Dr. Nolan with Ophthalmology who stated that patient has been legally blind since 08/28. Per her, we can proceed with antiplatelet/ anticoagulation as benefits of treating his cardiac comorbidities outweigh the risk of worsening his vision. Patient still wants to hold off on a/c as he worried about losing his vision. Per Dr. Nolan, she may evaluate him in [facility] [place] in the next 2-3 days, if unable to, she recommended close ooutpatient follow up with Ophthalmology in clinic Hyperlipidemia - Atorvastatin 20 mg HS - Zofran 4mg q6h prn nausea - Acetaminophen 500 mg PO q6h for pain - DVT prophylaxis - SCD's of bilateral legs - PT/OT - Repeat Labs in the AM - Repeat Chest Xray in the AM - Follow further medical management per Nephrology and Cardiology recommendations Disposition: Remains admitted to the PCU, continue dobutamine drip, status post left heart catheterization 07/10/2024 with multivessel CAD, Cardiothoracic surgery consultation requested for possible CABG. We will follow input and recommendations. Worsening renal function noted, continue to follow Nephrology recommendations. Plan of action discussed with the patient, all questions answered, agreed and understood the information provided. Total PCU time spent greater than 30 minutes. GARRY GUERRA MD Jul 11, 2024 11:40
--- NOTE | 2024-07-11 18:36 | PN ---
CARDIOLOGY Reason for consult: CHF HPI/story at presentation: This is a pleasant 64-year-old male with past medical history of the present with complaints of shortness of breath, was diagnosed with CHF exacerbation cardiology was consulted for further evaluation management. Known history of cardiomyopathy, ejection fraction 15 to 20% with previous stress testing with no ischemia or infarction pattern, 02/2024 he has been noncompliant with Lasix at home, here for further eval Management Subjective: 07/04/2024, shortness of breath, lower extremity edema feeling better 07/06/2024 patient seen and evaluated at bedside No events were reported overnight Patient reports overall feeling better today Continues on IV dobutamine at 2.5 07/08/2024 edema and sob better 07/09/2024 no overnight events 07/11/24 chest pain and sob better Past medical history: See below Allergies, Meds See chart Review of systems Review of Systems Constitutional: Negative for chills and fever. HENT: Negative for ear discharge and ear pain. Eyes: Negative for photophobia and discharge. Respiratory: Negative for cough, sputum production and stridor. Cardiovascular: Negative for chest pain and palpitations. Gastrointestinal: Negative for diarrhea and vomiting. Genitourinary: Negative for frequency. Musculoskeletal: Negative for myalgias. Skin: Negative for rash. Neurological: Negative for focal weakness and seizures. Endo/Heme/Allergies: Negative for polydipsia. Psychiatric/Behavioral: Negative for hallucinations. Vitals see chart PHYSICAL EXAMINATION GENERAL: The patient is alert and oriented*3 HEENT: Nonicteric sclerae, non traumatic HEART: Regular rate and rhythm with no murmurs LUNGS: Clear to auscultation bilaterally ABDOMEN: No acute issues, non tender GENITAL, RECTAL: deferred SKIN: No rash NEUROLOGIC: NFND EXTREMITIES:EDEMA 06/2024 ASSESSMENT EXACERBATION OF CHF, CARDIOMYOPATHY Noncompliant with diuretics at home History of suspected ischemic cardiomyopathy Stress test with infarction pattern, 02/2024 Ejection fraction of 15 to 20%, 06/2024 On diuresis with Bumex, 06/2024 Normal venous Dopplers, 06/2024 NSTEMI Initial troponin of 1600, trending down HEMATURIA Moderate hematuria, 06/2024 CHRONIC KIDNEY DISEASE Stage III 1.8 at presentation Creatinine at discharge from hospital, 06/2024 was 2.2 HYPERTENSION HYPERLIPIDEMIA DIABETES, TOBACCO USE CORE MEASURES Not on guideline directed medical therapy for cardiomyopathy given renal dysfunction OTHER MEDICAL PROBLEMS Anxiety disorder Diabetic neuropathy PLAN 07/04/2024 patient with NSTEMI, CHF exacerbation at presentation. Although type II elevation is possible, given presentation, will need to ensure that he does not have underlying ACS. EKG with non specific changes and no chest pain. Ideally, needs to be on anticoagulation with heparin to help with potential ACS. However, at this time, patient is concerned about increased retinal bleeding with anticoagulation and had not been on antiplatelets or anticoagulants before for the same reason. Although risk of myocardial injury is a concern, troponins are trending down and given risk of visual loss, after extensive discussion with the patient, plan is not to anticoagulate at this time. Will repeat echocardiogram to reassess ejection fraction. Post diuresis, may consider ischemic evaluation as needed. Also, underlying cardiorenal syndrome and therefore, may need dobutamine support for diuresis. Will follow closely 07/05/2024 breathing better, -600 on output, Remains on Bumex 3 times daily, also got a dose of metolazone this morning, potassium is being replaced. Will add a small dose of dobutamine to help with diuresis. Do not titrate and leave at 2.5. Hopefully, this helps his renal function as well. Primary team reached out to ophthalmology on-call and per ophthalmology, may consider anticoagulation if needed/antithrombotics if needed in spite of previous history of vitreal hemorrhage and proliferative retinopathy given risk and benefit. Patient himself would like to stay of antithrombotics if possible. Troponins have trended down and at this time, plan remains to stay off anticoagulation. Will consider coronary angiography prior to discharge depending on renal function and clinical course. Continue diuresis. 07/06/2024 patient is Bumex was decreased to every 12 hours. Attempted to increase dobutamine drip to 5. The patient experienced sinus tachycardia rate of 120 to 130 shortly after. Dobutamine drip was decreased back to 2.5. Creatinine increased to 2.4 today. Continue with Nephrology recommendations Repeat BMP in the AM Avoid any nephrotoxic medications as possible Will discuss coronary angiogram if renal function improves. ; Agree, Bumex was tapered because of worsening renal function. Remains on dobutamine. Having issues with anxiety, doing well. Seen and examined around 8 PM. 07/07/2024 Doing well, ongoing diuresis, issues with anxiety yesterday but has done well. Did receive a dose of Xanax yesterday. Continues to diurese, edema still present. Remains on dobutamine at 2.5. Creatinine today is better at 2.1. Continue current Bumex and dobutamine regimen. Plans remain for eventual cardiac catheterization once renal function improves and diuresis is complete. No plans for anticoagulation as above. 07/08/2024 Has had about 7 L out yesterday continues to diurese well. Remains on dobutamine with mild tachycardia. Potassium is being replaced. lower extremity edema progressively improving. Tentative plan for cardiac catheterization on Wednesday to further evaluate underlying cardiomyopathy. 07/09/2024 Bumex has been transitioned to Lasix. Plan for cardiac catheterization tomorrow. Will try to limit contrast use during procedure as much as possible. No plans for anticoagulation perioperatively given eye issues. Therefore, we will go femoral instead of radial approach. Per discussion with ophthalmology at admission, anticoagulation is okay if necessary however, patient still remains hesitant. Further recommendations on the basis of findings on cardiac catheterization. Only diagnostic planned at this point 07/10/2024 status post cardiac catheterization today showing multivessel coronary artery disease. Mid to distal LAD is a small vessel that fills via collaterals and is totally occluded prox, circumflex with severe disease in the RCA with severe disease as well. Underlying cardiomyopathy increases his overall risk. We will get CV surgery to see patient, however, even though patient may not need long-term antithrombotics after bypass, may need perioperative anticoagulation. This may be a concern in the setting of intra-ocular bleed issues and will need ophthalmology clearance. Appreciate evaluation. Only 10 cc of contrast was used during the procedure, risk of ISHAN is thought to be low 07/11/24 Overall doing well, renal function worse, output is not being monitored, edema is present, but lungs clear, will repeat BMP and consider volume replenishment if needed. eventual plan for impella assisted CABG per CVT surgery. Appreciate. ATTESTATION I was involved substantially in the care of this patient Number and complexity of problems addressed: 1 acute illness with severe exacerbation Amount and or complexity of data Review of prior external note(s) from each unique source: 2+ Ordering of each unique test : 0 Review of the result(s) of each unique test: 2+ Assessment requiring an independent historian(s): No Independent interpretation of test performed by another MD/QDELMIP/appropriate source (not separately reported) : No Discussion of management or test interpretation with external MD/QHCP/appropriate source (not separately reported) : No Risk status (cardiac, billing related): High Vitals/Labs Vital Signs Date Time Temp Pulse Resp B/P (MAP) Pulse Ox O2 Delivery O2 Flow Rate FiO2 07/11/24 17:31 97.7 119 18 111/74 98 Room Air 07/11/24 07:15 0 21 Laboratory Tests 07/11/24 03:32 Medications Current Medications Aspirin 325 mg ONCE ONCE PO Last administered on 07/04/24at 12:59; Start 07/04/24 at 13:00; Stop 07/04/24 at 13:01; Status DC Heparin Sodium (Porcine) 5,000 unit ONCE SQ Last administered on 07/04/24at 12:59; Start 07/04/24 at 13:00; Stop 07/04/24 at 13:37; Status DC Guaifenesin/ Dextromethorphan 10 ml Q6H PRN PO; Start 07/04/24 at 13:30; Stop 08/03/24 at 13:29 Bumetanide 1 mg Q8H IVP Last administered on 07/06/24at 05:42; Start 07/04/24 at 13:30; Stop 07/06/24 at 08:38; Status DC Insulin Human Regular INSULIN SLIDING SCAL... ACHS SQ Last administered on 07/10/24at 21:23; Start 07/04/24 at 16:30; Stop 08/03/24 at 16:29 Magnesium Sulfate 50 ml @ 0 mls/hr PROTOCOL IV Last administered on 07/09/24at 07:01; Start 07/04/24 at 14:00; Stop 08/03/24 at 13:59 Acetaminophen 500 mg Q6H PRN PO Last administered on 07/06/24at 14:35; Start 07/04/24 at 14:00; Stop 08/03/24 at 13:59 Ondansetron HCl 4 mg Q6H PRN IVP; Start 07/04/24 at 14:00; Stop 08/03/24 at 13:59 Ipratropium [place] 0.5 mg Q6H PRN IH; Start 07/04/24 at 14:00; Stop 07/06/24 at 14:21; Status DC Budesonide 0.5 mg BIDRESP IH Last administered on 07/06/24at 06:27; Start 07/04/24 at 18:00; Stop 07/06/24 at 14:21; Status DC Aspirin 81 mg DAILY PO Last administered on 07/11/24at 08:56; Start 07/05/24 at 09:00; Stop 08/04/24 at 08:59 Nitroglycerin 0.4 mg AD PRN SL; Start 07/04/24 at 14:00; Stop 08/03/24 at 13:59 Losartan Potassium 25 mg DAILY PO; Start 07/05/24 at 09:00; Stop 07/04/24 at 16:43; Status DC Potassium Chloride 100 ml @ 50 mls/hr AD PRN IV; Start 07/04/24 at 20:30; Stop 08/03/24 at 20:29 Potassium Chloride 10 meq AD PRN PO Last administered on 07/10/24at 06:00; Start 07/04/24 at 20:30; Stop 08/03/24 at 20:29 Potassium Chloride 10 meq AD PRN PO; Start 07/04/24 at 20:30; Stop 07/05/24 at 09:02; Status DC Potassium Chloride 40 meq ONCE ONCE PO Last administered on 07/04/24at 20:57; Start 07/04/24 at 21:00; Stop 07/04/24 at 21:01; Status DC Potassium Chloride 100 ml @ 100 mls/hr ONCE ONCE IV; Start 07/05/24 at 00:00; Stop 07/05/24 at 00:59; Status DC Alprazolam 0.25 mg ONCE ONCE PO Last administered on 07/04/24at 23:47; Start 07/04/24 at 23:00; Stop 07/04/24 at 23:01; Status DC Insulin Glargine 10 units DAILY SQ Last administered on 07/11/24at 08:54; Start 07/05/24 at 09:00; Stop 08/04/24 at 08:59 Metolazone 5 mg ONCE ONCE PO Last administered on 07/05/24at 09:24; Start 07/05/24 at 09:00; Stop 07/05/24 at 09:01; Status DC Potassium Chloride 10 meq AD PRN PO Last administered on 07/11/24at 06:05; Start 07/05/24 at 09:30; Stop 08/03/24 at 20:29 Atorvastatin Calcium 20 mg HS PO Last administered on 07/10/24at 21:22; Start 07/05/24 at 21:00; Stop 08/04/24 at 20:59 Dopamine HCl/ Dextrose 250 ml @ 0 mls/hr PROTOCOL IV; Start 07/05/24 at 13:00; Stop 07/05/24 at 13:48; Status DC Dobutamine HCl/ Dextrose 250 ml @ As Directed STK-MED ONCE IV Last administered on 07/05/24at 13:52; Start 07/05/24 at 13:36; Stop 07/05/24 at 13:41; Status DC Dobutamine HCl/ Dextrose 250 ml @ 0 mls/hr PROTOCOL IV; Start 07/05/24 at 14:00; Stop 07/06/24 at 10:18; Status DC Bumetanide 1 mg BID IVP Last administered on 07/09/24at 09:23; Start 07/06/24 at 09:00; Stop 07/09/24 at 11:28; Status DC Dobutamine HCl/ Dextrose 250 ml @ 0 mls/hr PROTOCOL IV; Start 07/06/24 at 10:30; Stop 07/06/24 at 11:33; Status DC Dobutamine HCl/ Dextrose 250 ml @ 0 mls/hr PROTOCOL IV Last administered on 07/11/24at 11:09; Start 07/06/24 at 12:00; Stop 08/05/24 at 11:59 Lactulose 20 gm BID PRN PO; Start 07/06/24 at 12:00; Stop 08/05/24 at 11:59 Alprazolam 0.25 mg ONCE ONCE PO Last administered on 07/06/24at 23:06; Start 07/06/24 at 23:00; Stop 07/06/24 at 23:01; Status DC Alprazolam 0.25 mg ONCE ONCE PO Last administered on 07/07/24at 23:42; Start 07/08/24 at 00:00; Stop 07/08/24 at 00:01; Status DC Furosemide 40 mg BID@09,17 PO Last administered on 07/11/24at 08:56; Start 07/09/24 at 17:00; Stop 07/11/24 at 18:26; Status DC Lidocaine HCl 20 ml STK-MED ONCE .ROUTE; Start 07/10/24 at 12:44; Stop 07/10/24 at 12:45; Status DC Fentanyl Citrate 100 mcg STK-MED ONCE .ROUTE; Start 07/10/24 at 12:44; Stop 07/10/24 at 12:45; Status DC Midazolam HCl 2 mg STK-MED ONCE .ROUTE; Start 07/10/24 at 12:45; Stop 07/10/24 at 12:45; Status DC Iohexol 35,000 mg STK-MED ONCE IV; Start 07/10/24 at 12:45; Stop 07/10/24 at 12:45; Status DC Nicardipine HCl 25 mg STK-MED ONCE IV; Start 07/10/24 at 12:45; Stop 07/10/24 at 12:45; Status DC Heparin Sodium/ Sodium Chloride 0 ml @ As Directed STK-MED ONCE IV; Start 07/10/24 at 12:45; Stop 07/10/24 at 12:46; Status DC Nitroglycerin 50 mg STK-MED ONCE .ROUTE; Start 07/10/24 at 12:45; Stop 07/10/24 at 12:46; Status DC Alprazolam 0.25 mg ONCE ONCE PO Last administered on 07/11/24at 01:33; Start 07/11/24 at 01:30; Stop 07/11/24 at 01:31; Status DC GUSTAVO PRUITT MD Jul 11, 2024 18:36
[2024-07-11 19:30] LABS: CREATININE 2.4 mg/dL (0.5-1.3); POTASSIUM 3.8 mmol/L (3.5-5.1)
[2024-07-12] VITALS (8 sets, daily range): BP systolic 95–125; BP diastolic 57–88; PULSE 115–121; RESP 16–18; TEMP 97.6–98.4; O2SAT 99–100
[2024-07-12 03:55] LABS: HEMATOCRIT 36.7 % (42-54); MEAN CORPUSCULAR HEMOGLOBIN 27.2 pg (27.0-33.0); MEAN CORPUSCULAR HGB CONC 32.2 g/dL (32.0-36.0); MEAN CORPUSCULAR VOLUME 84.6 fL (79-99); RED BLOOD CELL COUNT(AUTO) 4.34 MIL/uL (4.50-6.20); RED CELL DISTRIBUTION WIDTH 16.1 % (11.0-15.5); WHITE BLOOD COUNT (AUTO) 7.3 K/uL (4.8-10.8)
[2024-07-12 04:10] LABS: ALBUMIN 2.3 g/dL (3.5-5.0); BILIRUBIN,TOTAL 0.7 mg/dL (0.2-1.0); CREATININE 2.2 mg/dL (0.5-1.3); POTASSIUM 3.1 mmol/L (3.5-5.1); TOTAL PROTEIN, SERUM 7.5 g/dL (6.0-8.3)
[2024-07-12] MEDS: PoTASSium chloRIDE 20MEQ ER 20 MEQ ERTAB PO ONE (08:55)
--- NOTE | 2024-07-12 10:42 | PN ---
SUBJECTIVE: A 64-year-old male with a history of known cardiomyopathy. The patient underwent coronary catheterization that revealed 3-vessel disease. The patient has been seen by Cardiovascular Surgery. The patient has had acute on chronic renal failure in the hospital. Creatinine has remained stable post-heart catheterization and he is being seen for all of the above. REVIEW OF SYSTEMS: GENERAL: He is feeling weak and tired. HEENT: No change in vision. No change in hearing. CARDIOVASCULAR: There is no current chest pain or palpitations. PULMONARY: Shortness of breath is improved. GASTROINTESTINAL: The patient is tolerating a diet. MUSCULOSKELETAL: Complains of weakness. PHYSICAL EXAMINATION: VITAL SIGNS: Blood pressure is 105/57, pulse 100s. GENERAL: Chronically ill male, lying in bed on medical floor. HEENT: Head is atraumatic. Pupils equal, roving to light. Oropharynx is without exudate. Nares clear. NECK: There is no JVP. There is no thyromegaly. CARDIOVASCULAR: Regular. There is no S3, S4 gallop. LUNGS: Coarse with equal thoracic movement. ABDOMEN: Soft, nondistended, nontender. EXTREMITIES: No clubbing, no cyanosis. NEUROLOGIC: He is awake. He is alert. LABORATORY DATA: Sodium 134, potassium is 3, BUN 44, creatinine is 2.2. Hemoglobin 11, hematocrit 36. IMPRESSION: * Acute on chronic renal failure. * Cardiomyopathy. * Coronary artery disease. * Electrolyte abnormalities. PLAN: The patient's creatinine has remained stable post-heart catheterization. The patient has been seen by Cardiovascular Surgery. The patient is contemplating in regards to his CABG. We will continue to follow closely. Creatinine has stabilized overnight. Potassium has been repleted. TID: [id number] RECEIPT: [id number]
--- NOTE | 2024-07-12 11:33 | PN ---
[facility] PROGRESS NOTE Date of Service: Jul 12, 2024 Time of Service: 11:26 SUBJECTIVE: 07/05 Pt seen at bedside, no acute events overnight. Shortness of breath has improved, however he still has orthopnea and cough. Lower extremities with 2+ pitting edema. Will continue with diuresis, further care per cardiology. He is hemodynamically stable. Creatinine improved from 2.0 down to 1.9, sodium decreased from 138 down to 130, remainder of his labs are relatively unremarkable. 07/06 Pt seen at bedside, no acute events overnight. He has no complaints today. Diuresing well with approximately 2.5L urine output in 24 hours, weight decreased from 91.1 down to 89.2kg. Creatinine increased from 1.9 up to 2.4, bumex decreased to 1mg BID, pt continues on dobutamine drip. Remainder of his labs are relatively unremarkable 07/07 Pt seen at bedside, no acute events overnight. He remains tachycardic, HR in the 120s. He continues to diurese, continue bumex 1mg BID per cardiology. Sodium stable at 131, similar to yesterday, potassium improved from 3.1 up to 3.5 with repletion, will continue to trend, creatinine decreased from 2.4 down to 2.1. Discussed with cardiology who believes the tachycardia is secondary to dobutamine however it is helping with the renal functio and would like to continue overnight and reassess renal function in the am. If improving will likely wean off the dobutamine. 07/08 Pt seen at bedside, no acute events overnight. He remains tachycardia. Creatinine stable at 2.1, CO2 elevated at 36, similar to yesterday, BNP improved from 3830 down to 1850, remainder of his labs are relatively unremarkable. Pending weaning of dobutamine by cardiology 07/09 Pt continues with diuresis per cardiology. Pending possible cardiac cath tomorrow, will follow up with cardiology. He remains tachycardic, creatinine improved from 2.1 down to 1.8, approximately 1.7L urine output in the last 24 hours, further care per cardiology. 07/10 the patient has been seen and examined during my rounding, no acute events overnight, patient on dobutamine drip, blood pressure 116/77, heart rate of 110, afebrile, saturating normal on room air. The patient is alert oriented x3, awaiting left heart catheterization by correctional counselor today. Denied chest pain, shortness shortness for breath, no nausea, no vomiting. No family members at bedside during my visit. 07/11 the patient has been seen and examined during my rounding, no acute events overnight, remains on dobutamine drip, underwent left heart catheterization yesterday, tolerated procedure well, findings discussed, all questions answered. He remains hemodynamically stable, BP 123/56, afebrile, saturating normal on room air. He denied chest pain, no shortness a breath, no nausea, no vomiting, no abdominal discomfort. Creatinine function today worse compared to yesterday at 2.5. He denies any difficulty urinating. 07/12 the patient has been seen and examined today during my rounding, no acute overnight, hemodynamically stable, afebrile, saturating normal on room air, he remains on dobutamine drip. REVIEW OF SYSTEMS 12 point ROS negative unless noted in HPI PHYSICAL EXAM GENERAL APPEARANCE: The patient is awake, alert, and oriented, in no acute cardiopulmonary distress. NEUROLOGICAL: Cranial nerves II-XII grossly intact. Motor is 5/5 in bilateral upper and lower extremities proximal to distal. No sensory deficits. HEENT: Face is symmetric. Pupils are equal and reactive. Extraocular movements are intact. NECK: Supple. No JVD. No thyromegaly. No submental, submandibular, pre- /postauricular, occipital or supraclavicular lymphadenopathy. CHEST: Normal chest expansion. No Telemetry. LUNGS: bilateral lower lobe crackles CARDIOVASCULAR: Regular. S1 and S2 normal. No appreciable rubs, murmurs or gallops. ABDOMEN: Soft, nontender, and nondistended. There is no rebound, voluntary guarding, or rigidity. : Deferred. No Guillermo. EXTREMITIES: 2+ bilateral lower leg pitting edema. not cyanotic. No clubbing. Good capillary refill. SKIN: No skin breakdown. Vital Signs (last 8hr) Date Time Temp Pulse Resp B/P (MAP) Pulse Ox O2 Delivery O2 Flow Rate FiO2 07/12/24 07:44 99 Room Air* 0 21 07/12/24 07:37 97.5 116 18 95/72 99 Room Air 07/12/24 04:06 97.9 117 18 105/57 99 Room Air LABS: Laboratory: Test 07/12/24 05:24 07/12/24 03:19 07/11/24 03:32 07/10/24 16:34 Range/Units Whole Blood Glucose 93 # 70-110 MG/DL White Blood Count 7.3 4.8-10.8 K/uL Red Blood Count 4.34 L 4.50-6.20 MIL/uL Hemoglobin 11.8 L 14.0-18.0 g/dL Hematocrit 36.7 L 42-54 % Mean Corpuscular Volume 84.6 79-99 fL Mean Corpuscular Hemoglobin 27.2 27.0-33.0 pg Mean Corpuscular Hemoglobin Concent 32.2 32.0-36.0 g/dL Red Cell Distribution Width 16.1 H 11.0-15.5 % Platelet Count 224 130-400 K/uL Mean Platelet Volume 10.5 7.5-10.5 fL Nucleated Red Blood Cells 0.0 0.0-0.19 % Sodium Level 134 L 136-145 mmol/L Potassium Level 3.1 L 3.5-5.1 mmol/L Chloride Level 96 L 101-111 mmol/L Carbon Dioxide Level 33 H 21-32 mmol/L Blood Urea Nitrogen 44 H 7-18 mg/dL Creatinine 2.2 H 0.5-1.3 mg/dL Glomerular Filtration Rate Calc 33 >90 mL/min Random Glucose 78 # 70-105 mg/dL Total Calcium 8.6 8.5-10.1 mg/dL Magnesium Level 2.00 1.80-2.40 mg/dL Total Bilirubin 0.7 0.2-1.0 mg/dL Aspartate Amino Transf (AST/SGOT) 46 H 10-37 U/L Alanine Aminotransferase (ALT/SGPT) 27 12-78 U/L Alkaline Phosphatase 154 H 50-136 U/L Total Protein 7.5 6.0-8.3 g/dL Albumin 2.3 L 3.5-5.0 g/dL Immature Granulocyte % (Auto) 0.5 0-1 % Neutrophils (%) (Auto) 64.0 40.0-77.0 % Lymphocytes (%) (Auto) 18.3 L 21.0-51.0 % Monocytes (%) (Auto) 13.9 H 3.0-13.0 % Eosinophils (%) (Auto) 2.5 0.0-8.0 % Basophils (%) (Auto) 0.8 0.0-5.0 % Neutrophils # (Auto) 4.2 1.8-7.7 K/uL Lymphocytes # (Auto) 1.2 1.0-4.8 K/uL Monocytes # (Auto) 0.9 0.1-1.0 K/uL Eosinophils # (Auto) 0.16 0.00-0.70 K/uL Basophils # (Auto) 0.05 0.00-0.20 K/uL Absolute Immature Granulocyte (auto 0.03 0-1 K/uL Blood Gas Specimen Type Arterial Arterial Blood pH 7.471 H 7.350-7.450 Arterial Blood Partial Pressure CO2 41 35-48 mmHg Arterial Blood Partial Pressure O2 65.4 L 83.0-108.0 mmHg Arterial Blood HCO3 29.0 H 21.0-28.0 mmol/L Arterial Blood Oxygen Saturation 93.0 L 94.0-98.0 % Arterial Blood Base Excess 5.0 H -2.0-3.0 mmol/L Hemoglobin (Blood Gas) 13.3 L 13.5-17.5 g/dL Sodium (Blood Gas) 135 L 136-145 MMOL/L Bedside Potassium (Blood Gas) 3.5 3.4-4.5 MMOL/L Bedside Chloride (Blood Gas) 97 L 98-107 MMOL/L Bedside Glucose (Blood Gas) 150 H 65-95 MG/DL Bedside Ionized Calcium (Blood Gas) 1.14 L 1.15-1.33 MMOL/L Bedside Lactic Acid (Blood Gas) 2.50 H 0.36-0.75 MMOL/L Blood Gas Temperature 37.0 35.5-37.0 CELSIUS FiO2 21.0 % Blood Gas Specimen Comment RR RA Current Medications Medications (Trade) Dose Ordered Sig/Anjelica Route PRN Reason Start Time Stop Time Status Last Admin Dose Admin Acetaminophen (TYLenol 500MG TAB) 500 mg Q6H PRN PO MILD PAIN (1-3) 07/04/24 14:00 08/03/24 13:59 07/06/24 14:35 500 MG Aspirin (Aspirin 81mg Ec Tab) 81 mg DAILY PO 07/05/24 09:00 08/04/24 08:59 07/12/24 08:54 81 MG Atorvastatin Calcium (LIPItor 20MG) 20 mg HS PO 07/05/24 21:00 08/04/24 20:59 07/11/24 20:56 20 MG Budesonide (Pulmicort 0.5 Mg/2ml) 0.5 mg BIDRESP IH 07/04/24 18:00 07/06/24 14:21 DC 07/06/24 06:27 0.5 MG Bumetanide (Bumex 1mg Vial) 1 mg BID IVP 07/06/24 09:00 07/09/24 11:28 DC 07/09/24 09:23 1 MG Bumetanide (Bumex 1mg Vial) 1 mg Q8H IVP 07/04/24 13:30 07/06/24 08:38 DC 07/06/24 05:42 1 MG Dobutamine HCl/ Dextrose 250 ml @ 0 mls/hr PROTOCOL IV 07/05/24 14:00 07/06/24 10:18 DC Dobutamine HCl/ Dextrose 250 ml @ 0 mls/hr PROTOCOL IV 07/06/24 10:30 07/06/24 11:33 DC Dobutamine HCl/ Dextrose 250 ml @ 0 mls/hr PROTOCOL IV 07/06/24 12:00 08/05/24 11:59 07/11/24 11:09 9 MLS/HR Dopamine HCl/ Dextrose 250 ml @ 0 mls/hr PROTOCOL IV 07/05/24 13:00 07/05/24 13:48 DC Furosemide (LASix 40MG TAB) 40 mg BID@09,17 PO 07/09/24 17:00 07/11/24 18:26 DC 07/11/24 08:56 40 MG Guaifenesin/ Dextromethorphan (RobiTUSSin DM 200/20MG 10ML) 10 ml Q6H PRN PO COUGH 07/04/24 13:30 08/03/24 13:29 Heparin Sodium (Porcine) (HEParin 5,000 UNIT VIAL) 5,000 unit ONCE SQ 07/04/24 13:00 07/04/24 13:37 DC 07/04/24 12:59 5,000 UNIT Insulin Glargine (LANtus 100 UNITS/ML 10 ML VIAL) 10 units DAILY SQ 07/05/24 09:00 08/04/24 08:59 07/12/24 09:03 10 UNITS Insulin Human Regular (humuLIN R 100 UNIT/ML 3ML) INSULIN SLIDING SCAL... ACHS SQ 07/04/24 16:30 08/03/24 16:29 07/11/24 20:56 3 UNIT Ipratropium [place] (AtrovENT UD) 0.5 mg Q6H PRN IH SHORTNESS OF BREATH 07/04/24 14:00 07/06/24 14:21 DC Lactulose (Constulose 20gm/ 30ml Udcup) 20 gm BID PRN PO CONSTIPATION 07/06/24 12:00 08/05/24 11:59 Losartan Potassium (CozAAR 25MG TAB) 25 mg DAILY PO 07/05/24 09:00 07/04/24 16:43 DC Magnesium Sulfate 50 ml @ 0 mls/hr PROTOCOL IV 07/04/24 14:00 08/03/24 13:59 07/09/24 07:01 25 MLS/HR Nitroglycerin (Nitrostat) 0.4 mg AD PRN SL CHEST PAIN 07/04/24 14:00 08/03/24 13:59 Ondansetron HCl (zoFRAN 4MG INJ) 4 mg Q6H PRN IVP NAUSEA/VOMITING 07/04/24 14:00 08/03/24 13:59 Potassium Chloride 100 ml @ 50 mls/hr AD PRN IV POTASSIUM PROTOCOL 07/04/24 20:30 08/03/24 20:29 Potassium Chloride (K-Dur 10meq Sr Tab) 10 meq AD PRN PO POTASSIUM PROTOCOL 07/05/24 09:30 08/03/24 20:29 07/11/24 06:05 10 MEQ Potassium Chloride (K-Dur/Klor-Con 20meq) 10 meq AD PRN PO POTASSIUM PROTOCOL 07/04/24 20:30 07/05/24 09:02 DC Potassium Chloride (KCl 10% Elixir 20meq/15ml) 10 meq AD PRN PO POTASSIUM PROTOCOL 07/04/24 20:30 08/03/24 20:29 07/12/24 11:16 10 MEQ DIAGNOSTICS / RADIOLOGY: [ ] ASSESSMENT: 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, POA Hx of severe suspected Ischemic Cardiomyopathy with LVEF less than 20%, POA Status post left heart catheterization 07/10/2024 findings of multivessel CAD Acute Hypoxemic respiratory failure with Cardiogenic Pulmonary edema, POA JOAQUÍN on CKD with Suspected underlying Cardiorenal Syndrome, POA Nephrotic range proteinuria, POA Elevated Troponin, likely due to CHF exacerbation and Demand Ischemia, r/o active ACS, POA Hx of Bilateral Vitreous Hemorrhage with legal blindness, POA Hx of Bilateral Cataracts of the eyes, POA diabetes mellitus type II A1c 9.6 - POA stage III chronic kidney disease - POA hyperlipidemia - POA hypertension - POA Right sided Pleural Effusion, POA cardiorenal syndrome - POA bilateral diabetic or hypertensive retinopathy bilateral diabetic neuropathy former smoker Uncontrolled Hypothyroidism, POA PLAN: Admit to PCCU Acute on chronic combined congestive heart failure exacerbation Severe CHF with EF less than 20 %, stage III diastolic dysfunction Hx of positive stress test in 02/27 Cardiogenic Pulmonary edema with right sided pleural effusion Rule out ACS - continue to follow Cardiology input and recommendation - continue dobutamine drip -echocardiogram with LVEF less than 20% - status post left heart catheterization 07/10/2024 finding of multivessel CAD -Cardiothoracic surgery consultation requested, input noted and appreciated, patient will require CABG -worsening renal function, we will request Nephrology consultation - Strict I & Os - Daily weight - Fluid restriction less than 1.5L in 24 hour - Heart healthy diet - Follow hemodynamics JOAQUÍN on CKD Suspected Cardiorenal syndrome Stage III chronic kidney disease Diabetes type II A1c 9.6 Bilateral diabetic/hypertensive retinopathy Bilateral diabetic neuropathy Hypertension -continue to follow Nephrology input and recommendation - renal ultrasound no obstruction -continue to monitor renal function in a.m. - Strict monitoring of intake, output and overall fluid balance - Daily weights - Avoid nephrotoxic medications to the extent possible - Monitor electrolytes and replace as needed - Medications to be dosed according to renal function Acute Hypoxic Respiratory due to Pulmonary edema Right sided Pleural Effusion as per chest xray 07/04/24 No evidence of reactive airway disease, discontinue nebulizer treatments Hx of Bilateral vitreous hemorrhage with legal blindness Hx of bilateral cataracts Hx of retinopathy of bilateral eyes - Patient reports that his vision worsened after receiving anticoagulation and antiplatelet therapy in [facility], he wants to hold off on heparin gtt or full dose Lovenox. I spoke with Dr. Nolan with Ophthalmology who stated that patient has been legally blind since 08/28. Per her, we can proceed with antiplatelet/ anticoagulation as benefits of treating his cardiac comorbidities outweigh the risk of worsening his vision. Patient still wants to hold off on a/c as he worried about losing his vision. Per Dr. Nolan, she may evaluate him in [facility] [place] in the next 2-3 days, if unable to, she recommended close ooutpatient follow up with Ophthalmology in clinic Hyperlipidemia - Atorvastatin 20 mg HS - Zofran 4mg q6h prn nausea - Acetaminophen 500 mg PO q6h for pain - DVT prophylaxis - SCD's of bilateral legs - PT/OT - Repeat Labs in the AM - Repeat Chest Xray in the AM - Follow further medical management per Nephrology and Cardiology recommendat ions Disposition: Remains admitted to the PCU, continue dobutamine drip, status post left heart catheterization 07/10/2024 with multivessel CAD, Cardiothoracic surgery consultation requested for possible CABG. Patient will require clearance from darkroom technician prior to surgical intervention. Discussed with Dr. Rodriguez from office of Dr. Nolan who is the retina specialist and had seen the patient in the past, regarding plan of care. Difficult to predict if the patient will have intra-ocular/retina hemorrhage. Benefits of surgical intervention outweighs the risk. I will try to contact Dr. Nolan to discuss. Patient has been made aware. We will continue to follow. Plan of action discussed with the patient, all questions answered, agreed and understood the information provided. Total PCU time spent greater than 30 minutes. GARRY GUERRA MD Jul 12, 2024 11:33
--- NOTE | 2024-07-12 12:44 | PN ---
CARDIOLOGY Reason for consult: CHF HPI/story at presentation: This is a pleasant 64-year-old male with past medical history of the present with complaints of shortness of breath, was diagnosed with CHF exacerbation cardiology was consulted for further evaluation management. Known history of cardiomyopathy, ejection fraction 15 to 20% with previous stress testing with no ischemia or infarction pattern, 02/2024 he has been noncompliant with Lasix at home, here for further eval Management Subjective: 07/04/2024, shortness of breath, lower extremity edema feeling better 07/06/2024 patient seen and evaluated at bedside No events were reported overnight Patient reports overall feeling better today Continues on IV dobutamine at 2.5 07/08/2024 edema and sob better 07/09/2024 no overnight events 07/11/24 chest pain and sob better 07/12/24 no complaints Past medical history: See below Allergies, Meds See chart Review of systems Review of Systems Constitutional: Negative for chills and fever. HENT: Negative for ear discharge and ear pain. Eyes: Negative for photophobia and discharge. Respiratory: Negative for cough, sputum production and stridor. Cardiovascular: Negative for chest pain and palpitations. Gastrointestinal: Negative for diarrhea and vomiting. Genitourinary: Negative for frequency. Musculoskeletal: Negative for myalgias. Skin: Negative for rash. Neurological: Negative for focal weakness and seizures. Endo/Heme/Allergies: Negative for polydipsia. Psychiatric/Behavioral: Negative for hallucinations. Vitals see chart PHYSICAL EXAMINATION GENERAL: The patient is alert and oriented*3 HEENT: Nonicteric sclerae, non traumatic HEART: Regular rate and rhythm with no murmurs LUNGS: Clear to auscultation bilaterally ABDOMEN: No acute issues, non tender GENITAL, RECTAL: deferred SKIN: No rash NEUROLOGIC: NFND EXTREMITIES:EDEMA 06/2024 ASSESSMENT EXACERBATION OF CHF, CARDIOMYOPATHY Noncompliant with diuretics at home History of suspected ischemic cardiomyopathy Stress test with infarction pattern, 02/2024 Ejection fraction of 15 to 20%, 06/2024 On diuresis with Bumex, 06/2024 Normal venous Dopplers, 06/2024 NSTEMI Initial troponin of 1600, trending down HEMATURIA Moderate hematuria, 06/2024 CHRONIC KIDNEY DISEASE Stage III 1.8 at presentation Creatinine at discharge from hospital, 06/2024 was 2.2 HYPERTENSION HYPERLIPIDEMIA DIABETES, TOBACCO USE CORE MEASURES Not on guideline directed medical therapy for cardiomyopathy given renal dysfunction OTHER MEDICAL PROBLEMS Anxiety disorder Diabetic neuropathy PLAN 07/04/2024 patient with NSTEMI, CHF exacerbation at presentation. Although type II elevation is possible, given presentation, will need to ensure that he does not have underlying ACS. EKG with non specific changes and no chest pain. Ideally, needs to be on anticoagulation with heparin to help with potential ACS. However, at this time, patient is concerned about increased retinal bleeding with anticoagulation and had not been on antiplatelets or anticoagulants before for the same reason. Although risk of myocardial injury is a concern, troponins are trending down and given risk of visual loss, after extensive discussion with the patient, plan is not to anticoagulate at this time. Will repeat echocardiogram to reassess ejection fraction. Post diuresis, may consider ischemic evaluation as needed. Also, underlying cardiorenal syndrome and therefore, may need dobutamine support for diuresis. Will follow closely 07/05/2024 breathing better, -600 on output, Remains on Bumex 3 times daily, also got a dose of metolazone this morning, potassium is being replaced. Will add a small dose of dobutamine to help with diuresis. Do not titrate and leave at 2.5. Hopefully, this helps his renal function as well. Primary team reached out to ophthalmology on-call and per ophthalmology, may consider anticoagulation if needed/antithrombotics if needed in spite of previous history of vitreal hemorrhage and proliferative retinopathy given risk and benefit. Patient himself would like to stay of antithrombotics if possible. Troponins have trended down and at this time, plan remains to stay off anticoagulation. Will consider coronary angiography prior to discharge depending on renal function and clinical course. Continue diuresis. 07/06/2024 patient is Bumex was decreased to every 12 hours. Attempted to increase dobutamine drip to 5. The patient experienced sinus tachycardia rate of 120 to 130 shortly after. Dobutamine drip was decreased back to 2.5. Creatinine increased to 2.4 today. Continue with Nephrology recommendations Repeat BMP in the AM Avoid any nephrotoxic medications as possible Will discuss coronary angiogram if renal function improves. ; Agree, Bumex was tapered because of worsening renal function. Remains on dobutamine. Having issues with anxiety, doing well. Seen and examined 10/0/24 around 8 PM. 07/07/2024 Doing well, ongoing diuresis, issues with anxiety yesterday but has done well. Did receive a dose of Xanax yesterday. Continues to diurese, edema still present. Remains on dobutamine at 2.5. Creatinine today is better at 2.1. Continue current Bumex and dobutamine regimen. Plans remain for eventual cardiac catheterization once renal function improves and diuresis is complete. No plans for anticoagulation as above. 07/08/2024 Has had about 7 L out yesterday continues to diurese well. Remains on dobutamine with mild tachycardia. Potassium is being replaced. lower extremity edema progressively improving. Tentative plan for cardiac catheterization on Wednesday to further evaluate underlying cardiomyopathy. 07/09/2024 Bumex has been transitioned to Lasix. Plan for cardiac catheterization tomorrow. Will try to limit contrast use during procedure as much as possible. No plans for anticoagulation perioperatively given eye issues. Therefore, we will go femoral instead of radial approach. Per discussion with ophthalmology at admission, anticoagulation is okay if necessary however, patient still remains hesitant. Further recommendations on the basis of findings on cardiac catheterization. Only diagnostic planned at this point 07/10/2024 status post cardiac catheterization today showing multivessel coronary artery disease. Mid to distal LAD is a small vessel that fills via collaterals and is totally occluded prox, circumflex with severe disease in the RCA with severe disease as well. Underlying cardiomyopathy increases his overall risk. We will get CV surgery to see patient, however, even though patient may not need long-term antithrombotics after bypass, may need perioperative anticoagulation. This may be a concern in the setting of intra-ocular bleed issues and will need ophthalmology clearance. Appreciate evaluation. Only 10 cc of contrast was used during the procedure, risk of ISHAN is thought to be low 07/11/24 Overall doing well, renal function worse, output is not being monitored, edema is present, but lungs clear, will repeat BMP and consider volume replenishment if needed. eventual plan for impella assisted CABG per CVT surgery. Appreciate. 07/12/24 doing well, renal function better off diuresis, volume status is still ok, concern for shirin-op anticoagulation and eye bleeding, will also need impella asistance for intervention. will discuss with cvt, primary and ophthal. patient may want eye fixed before bypass? ATTESTATION I was involved substantially in the care of this patient Number and complexity of problems addressed: 1 acute illness with severe exacerbation Amount and or complexity of data Review of prior external note(s) from each unique source: 2+ Ordering of each unique test : 0 Review of the result(s) of each unique test: 2+ Assessment requiring an independent historian(s): No Independent interpretation of test performed by another MD/QHCP/appropriate source (not separately reported) : No Discussion of management or test interpretation with external MD/QHCP/appropriate source (not separately reported) : No Risk status (cardiac, billing related): High Vitals/Labs Vital Signs Date Time Temp Pulse Resp B/P (MAP) Pulse Ox O2 Delivery O2 Flow Rate FiO2 07/12/24 12:10 98.1 121 16 106/68 99 Room Air 07/12/24 07:44 0 21 Laboratory Tests 07/11/24 18:56 07/12/24 03:19 07/12/24 12:02 Medications Current Medications Aspirin 325 mg ONCE ONCE PO Last administered on 07/04/24at 12:59; Start 07/04/24 at 13:00; Stop 07/04/24 at 13:01; Status DC Heparin Sodium (Porcine) 5,000 unit ONCE SQ Last administered on 07/04/24at 12:59; Start 07/04/24 at 13:00; Stop 07/04/24 at 13:37; Status DC Guaifenesin/ Dextromethorphan 10 ml Q6H PRN PO; Start 07/04/24 at 13:30; Stop 08/03/24 at 13:29 Bumetanide 1 mg Q8H IVP Last administered on 07/06/24at 05:42; Start 07/04/24 at 13:30; Stop 07/06/24 at 08:38; Status DC Insulin Human Regular INSULIN SLIDING SCAL... ACHS SQ Last administered on 07/11/24at 20:56; Start 07/04/24 at 16:30; Stop 08/03/24 at 16:29 Magnesium Sulfate 50 ml @ 0 mls/hr PROTOCOL IV Last administered on 07/09/24at 07:01; Start 07/04/24 at 14:00; Stop 08/03/24 at 13:59 Acetaminophen 500 mg Q6H PRN PO Last administered on 07/06/24at 14:35; Start 07/04/24 at 14:00; Stop 08/03/24 at 13:59 Ondansetron HCl 4 mg Q6H PRN IVP; Start 07/04/24 at 14:00; Stop 08/03/24 at 13:59 Ipratropium [place] 0.5 mg Q6H PRN IH; Start 07/04/24 at 14:00; Stop 07/06/24 at 14:21; Status DC Budesonide 0.5 mg BIDRESP IH Last administered on 07/06/24at 06:27; Start 07/04/24 at 18:00; Stop 07/06/24 at 14:21; Status DC Aspirin 81 mg DAILY PO Last administered on 07/12/24at 08:54; Start 07/05/24 at 09:00; Stop 08/04/24 at 08:59 Nitroglycerin 0.4 mg AD PRN SL; Start 07/04/24 at 14:00; Stop 08/03/24 at 13:59 Losartan Potassium 25 mg DAILY PO; Start 07/05/24 at 09:00; Stop 07/04/24 at 16:43; Status DC Potassium Chloride 100 ml @ 50 mls/hr AD PRN IV; Start 07/04/24 at 20:30; Stop 08/03/24 at 20:29 Potassium Chloride 10 meq AD PRN PO Last administered on 07/12/24at 11:16; Start 07/04/24 at 20:30; Stop 08/03/24 at 20:29 Potassium Chloride 10 meq AD PRN PO; Start 07/04/24 at 20:30; Stop 07/05/24 at 09:02; Status DC Potassium Chloride 40 meq ONCE ONCE PO Last administered on 07/04/24at 20:57; Start 07/04/24 at 21:00; Stop 07/04/24 at 21:01; Status DC Potassium Chloride 100 ml @ 100 mls/hr ONCE ONCE IV; Start 07/05/24 at 00:00; Stop 07/05/24 at 00:59; Status DC Alprazolam 0.25 mg ONCE ONCE PO Last administered on 07/04/24at 23:47; Start 07/04/24 at 23:00; Stop 07/04/24 at 23:01; Status DC Insulin Glargine 10 units DAILY SQ Last administered on 07/12/24at 09:03; Start 07/05/24 at 09:00; Stop 08/04/24 at 08:59 Metolazone 5 mg ONCE ONCE PO Last administered on 07/05/24at 09:24; Start 07/05/24 at 09:00; Stop 07/05/24 at 09:01; Status DC Potassium Chloride 10 meq AD PRN PO Last administered on 07/11/24at 06:05; Start 07/05/24 at 09:30; Stop 08/03/24 at 20:29 Atorvastatin Calcium 20 mg HS PO Last administered on 07/11/24at 20:56; Start 07/05/24 at 21:00; Stop 08/04/24 at 20:59 Dopamine HCl/ Dextrose 250 ml @ 0 mls/hr PROTOCOL IV; Start 07/05/24 at 13:00; Stop 07/05/24 at 13:48; Status DC Dobutamine HCl/ Dextrose 250 ml @ As Directed STK-MED ONCE IV Last administered on 07/05/24at 13:52; Start 07/05/24 at 13:36; Stop 07/05/24 at 13:41; Status DC Dobutamine HCl/ Dextrose 250 ml @ 0 mls/hr PROTOCOL IV; Start 07/05/24 at 14:00; Stop 07/06/24 at 10:18; Status DC Bumetanide 1 mg BID IVP Last administered on 07/09/24at 09:23; Start 07/06/24 at 09:00; Stop 07/09/24 at 11:28; Status DC Dobutamine HCl/ Dextrose 250 ml @ 0 mls/hr PROTOCOL IV; Start 07/06/24 at 10:30; Stop 07/06/24 at 11:33; Status DC Dobutamine HCl/ Dextrose 250 ml @ 0 mls/hr PROTOCOL IV Last administered on 07/12/24at 11:57; Start 07/06/24 at 12:00; Stop 08/05/24 at 11:59 Lactulose 20 gm BID PRN PO; Start 07/06/24 at 12:00; Stop 08/05/24 at 11:59 Alprazolam 0.25 mg ONCE ONCE PO Last administered on 07/06/24at 23:06; Start 07/06/24 at 23:00; Stop 07/06/24 at 23:01; Status DC Alprazolam 0.25 mg ONCE ONCE PO Last administered on 07/07/24at 23:42; Start 07/08/24 at 00:00; Stop 07/08/24 at 00:01; Status DC Furosemide 40 mg BID@,17 PO Last administered on 07/11/24at 08:56; Start 07/09/24 at 17:00; Stop 07/11/24 at 18:26; Status DC Lidocaine HCl 20 ml STK-MED ONCE .ROUTE; Start 07/10/24 at 12:44; Stop 07/10/24 at 12:45; Status DC Fentanyl Citrate 100 mcg STK-MED ONCE .ROUTE; Start 07/10/24 at 12:44; Stop 07/10/24 at 12:45; Status DC Midazolam HCl 2 mg STK-MED ONCE .ROUTE; Start 07/10/24 at 12:45; Stop 07/10/24 at 12:45; Status DC Iohexol 35,000 mg STK-MED ONCE IV; Start 07/10/24 at 12:45; Stop 07/10/24 at 12:45; Status DC Nicardipine HCl 25 mg STK-MED ONCE IV; Start 07/10/24 at 12:45; Stop 07/10/24 at 12:45; Status DC Heparin Sodium/ Sodium Chloride 0 ml @ As Directed STK-MED ONCE IV; Start 07/10/24 at 12:45; Stop 07/10/24 at 12:46; Status DC Nitroglycerin 50 mg STK-MED ONCE .ROUTE; Start 07/10/24 at 12:45; Stop 07/10/24 at 12:46; Status DC Alprazolam 0.25 mg ONCE ONCE PO Last administered on 07/11/24at 01:33; Start 07/11/24 at 01:30; Stop 07/11/24 at 01:31; Status DC Alprazolam 0.25 mg NOW ONCE PO Last administered on 07/11/24at 21:59; Start 07/11/24 at 21:30; Stop 07/11/24 at 21:31; Status DC Potassium Chloride 40 meq ONCE ONCE PO; Start 07/12/24 at 08:30; Stop 07/12/24 at 08:31; Status DC SIVAGNANAM,KAMESH MD Jul 12, 2024 12:44
[2024-07-12] MEDS: ALPRAZolam 0.25 MG TABLET PO ONE (23:26)
[2024-07-13] VITALS (8 sets, daily range): BP systolic 107–131; BP diastolic 67–88; PULSE 58–119; RESP 18–20; TEMP 98–98.3; O2SAT 100
[2024-07-13 04:09] LABS: HEMATOCRIT 35.8 % (42-54); MEAN CORPUSCULAR HEMOGLOBIN 26.9 pg (27.0-33.0); MEAN CORPUSCULAR HGB CONC 32.4 g/dL (32.0-36.0); MEAN CORPUSCULAR VOLUME 83.1 fL (79-99); RED BLOOD CELL COUNT(AUTO) 4.31 MIL/uL (4.50-6.20); RED CELL DISTRIBUTION WIDTH 16.3 % (11.0-15.5); WHITE BLOOD COUNT (AUTO) 6.7 K/uL (4.8-10.8)
[2024-07-13 04:33] LABS: ALBUMIN 2.4 g/dL (3.5-5.0); BILIRUBIN,TOTAL 0.6 mg/dL (0.2-1.0); CREATININE 2.6 mg/dL (0.5-1.3); POTASSIUM 3.6 mmol/L (3.5-5.1); TOTAL PROTEIN, SERUM 7.5 g/dL (6.0-8.3)
--- NOTE | 2024-07-13 09:58 | PN ---
SUBJECTIVE: A 64-year-old male with history of end-stage cardiomyopathy. The patient has had acute on chronic renal failure in the hospital. Creatinine has been elevated. The patient underwent heart catheterization that revealed significant 3-vessel disease. The patient is wishing to be seen by Ophthalmology prior to undergoing the surgery. I did discuss with the patient only other option would be discharge and follow up as an outpatient. The patient has been seen by Cardiovascular Surgery. REVIEW OF SYSTEMS: GENERAL: He is feeling improved. HEENT: No change in vision. No change in hearing. CARDIOVASCULAR: No current chest pains or palpitations. PULMONARY: Shortness of breath has improved since admission. GASTROINTESTINAL: He is tolerating diet. MUSCULOSKELETAL: Complains of weakness. PHYSICAL EXAMINATION: VITAL SIGNS: Blood pressure is 107/74, pulse in 100s. GENERAL: He is a chronically ill, much older than appearing male. HEENT: Head is atraumatic. Pupils are equal, roving to light. Oropharynx is without exudate. Nares clear. NECK: There is no JVP. There is no thyromegaly, no mass. CARDIOVASCULAR: Regular. There is no S3, S4 gallop. LUNGS: Coarse with equal thoracic movement. ABDOMEN: Soft, nondistended, nontender. EXTREMITIES: There is no clubbing, no cyanosis. NEUROLOGIC: He is awake. He is alert. LABORATORY DATA: Sodium 132, potassium 3.6, BUN 53, creatinine 2.6. Hemoglobin 11, hematocrit 35. IMPRESSION: * Acute on chronic renal failure. * Cardiomyopathy. * Coronary artery disease. * Diabetes mellitus. PLAN: The patient does have known chronic renal insufficiency. There was no need for any form of renal replacement therapy. The patient has been seen by Cardiovascular Surgery. The patient is wishing for discharge to follow up with Ophthalmology prior to the bypass. I will discuss with the primary team. We will continue to follow closely. The patient with multiple questions, all of which were answered. TID: [id number] RECEIPT: [id number]
--- NOTE | 2024-07-13 13:20 | PN ---
[facility] PROGRESS NOTE Date of Service: Jul 13, 2024 Time of Service: 13:15 SUBJECTIVE: 07/05 Pt seen at bedside, no acute events overnight. Shortness of breath has improved, however he still has orthopnea and cough. Lower extremities with 2+ pitting edema. Will continue with diuresis, further care per cardiology. He is hemodynamically stable. Creatinine improved from 2.0 down to 1.9, sodium decreased from 138 down to 130, remainder of his labs are relatively unremarkable. 07/06 Pt seen at bedside, no acute events overnight. He has no complaints today. Diuresing well with approximately 2.5L urine output in 24 hours, weight decreased from 91.1 down to 89.2kg. Creatinine increased from 1.9 up to 2.4, bumex decreased to 1mg BID, pt continues on dobutamine drip. Remainder of his labs are relatively unremarkable 07/07 Pt seen at bedside, no acute events overnight. He remains tachycardic, HR in the 120s. He continues to diurese, continue bumex 1mg BID per cardiology. Sodium stable at 131, similar to yesterday, potassium improved from 3.1 up to 3.5 with repletion, will continue to trend, creatinine decreased from 2.4 down to 2.1. Discussed with cardiology who believes the tachycardia is secondary to dobutamine however it is helping with the renal functio and would like to continue overnight and reassess renal function in the am. If improving will likely wean off the dobutamine. 07/08 Pt seen at bedside, no acute events overnight. He remains tachycardia. Creatinine stable at 2.1, CO2 elevated at 36, similar to yesterday, BNP improved from 3830 down to 1850, remainder of his labs are relatively unremarkable. Pending weaning of dobutamine by cardiology 07/09 Pt continues with diuresis per cardiology. Pending possible cardiac cath tomorrow, will follow up with cardiology. He remains tachycardic, creatinine improved from 2.1 down to 1.8, approximately 1.7L urine output in the last 24 hours, further care per cardiology. 07/10 the patient has been seen and examined during my rounding, no acute events overnight, patient on dobutamine drip, blood pressure 116/77, heart rate of 110, afebrile, saturating normal on room air. The patient is alert oriented x3, awaiting left heart catheterization by shorthand teacher today. Denied chest pain, shortness shortness for breath, no nausea, no vomiting. No family members at bedside during my visit. 07/11 the patient has been seen and examined during my rounding, no acute events overnight, remains on dobutamine drip, underwent left heart catheterization yesterday, tolerated procedure well, findings discussed, all questions answered. He remains hemodynamically stable, BP 123/56, afebrile, saturating normal on room air. He denied chest pain, no shortness a breath, no nausea, no vomiting, no abdominal discomfort. Creatinine function today worse compared to yesterday at 2.5. He denies any difficulty urinating. 07/12 the patient has been seen and examined today during my rounding, no acute overnight, hemodynamically stable, afebrile, saturating normal on room air, he remains on dobutamine drip. 07/13 has been seen and examined during my rounding today, remains on dobutamine drip, alert oriented x3, denied chest pain, shortness shortness for breath, no nausea, no vomiting. REVIEW OF SYSTEMS 12 point ROS negative unless noted in HPI PHYSICAL EXAM GENERAL APPEARANCE: The patient is awake, alert, and oriented, in no acute cardiopulmonary distress. NEUROLOGICAL: Cranial nerves II-XII grossly intact. Motor is 5/5 in bilateral upper and lower extremities proximal to distal. No sensory deficits. HEENT: Face is symmetric. Pupils are equal and reactive. Extraocular movements are intact. NECK: Supple. No JVD. No thyromegaly. No submental, submandibular, pre-/posta uricular, occipital or supraclavicular lymphadenopathy. CHEST: Normal chest expansion. No Telemetry. LUNGS: bilateral lower lobe crackles CARDIOVASCULAR: Regular. S1 and S2 normal. No appreciable rubs, murmurs or gallops. ABDOMEN: Soft, nontender, and nondistended. There is no rebound, voluntary guarding, or rigidity. : Deferred. No Guillermo. EXTREMITIES: 2+ bilateral lower leg pitting edema. not cyanotic. No clubbing. Good capillary refill. SKIN: No skin breakdown. Vital Signs (last 8hr) Date Time Temp Pulse Resp B/P (MAP) Pulse Ox O2 Delivery O2 Flow Rate FiO2 07/13/24 11:00 98.2 118 20 113/82 97 Room Air 07/13/24 08:45 100 Room Air* 0 21 07/13/24 07:00 98.2 114 20 107/74 94 Room Air LABS: Laboratory: Test 07/13/24 11:14 07/13/24 03:41 Range/Units Whole Blood Glucose 249 H 70-110 MG/DL Bedside Glucose Comment Notified Nurse White Blood Count 6.7 4.8-10.8 K/uL Red Blood Count 4.31 L 4.50-6.20 MIL/uL Hemoglobin 11.6 L 14.0-18.0 g/dL Hematocrit 35.8 L 42-54 % Mean Corpuscular Volume 83.1 79-99 fL Mean Corpuscular Hemoglobin 26.9 L 27.0-33.0 pg Mean Corpuscular Hemoglobin Concent 32.4 32.0-36.0 g/dL Red Cell Distribution Width 16.3 H 11.0-15.5 % Platelet Count 236 130-400 K/uL Mean Platelet Volume 10.3 7.5-10.5 fL Nucleated Red Blood Cells 0.0 0.0-0.19 % Sodium Level 132 L 136-145 mmol/L Potassium Level 3.6 3.5-5.1 mmol/L Chloride Level 94 L 101-111 mmol/L Carbon Dioxide Level 33 H 21-32 mmol/L Blood Urea Nitrogen 53 H 7-18 mg/dL Creatinine 2.6 H 0.5-1.3 mg/dL Glomerular Filtration Rate Calc 27 >90 mL/min Random Glucose 199 H 70-105 mg/dL Total Calcium 8.5 8.5-10.1 mg/dL Magnesium Level 1.90 1.6-2.6 mg/dL Total Bilirubin 0.6 0.2-1.0 mg/dL Aspartate Amino Transf (AST/SGOT) 53 H 10-37 U/L Alanine Aminotransferase (ALT/SGPT) 28 12-78 U/L Alkaline Phosphatase 175 H 50-136 U/L Total Protein 7.5 6.0-8.3 g/dL Albumin 2.4 L 3.5-5.0 g/dL Current Medications Medications (Trade) Dose Ordered Sig/Anjelica Route PRN Reason Start Time Stop Time Status Last Admin Dose Admin Acetaminophen (TYLenol 500MG TAB) 500 mg Q6H PRN PO MILD PAIN (1-3) 07/04/24 14:00 08/03/24 13:59 07/06/24 14:35 500 MG Aspirin (Aspirin 81mg Ec Tab) 81 mg DAILY PO 07/05/24 09:00 08/04/24 08:59 07/13/24 09:06 81 MG Atorvastatin Calcium (LIPItor 20MG) 20 mg HS PO 07/05/24 21:00 08/04/24 20:59 07/12/24 20:29 20 MG Budesonide (Pulmicort 0.5 Mg/2ml) 0.5 mg BIDRESP IH 07/04/24 18:00 07/06/24 14:21 DC 07/06/24 06:27 0.5 MG Bumetanide (Bumex 1mg Vial) 1 mg BID IVP 07/06/24 09:00 07/09/24 11:28 DC 07/09/24 09:23 1 MG Bumetanide (Bumex 1mg Vial) 1 mg Q8H IVP 07/04/24 13:30 07/06/24 08:38 DC 07/06/24 05:42 1 MG Dobutamine HCl/ Dextrose 250 ml @ 0 mls/hr PROTOCOL IV 07/05/24 14:00 07/06/24 10:18 DC Dobutamine HCl/ Dextrose 250 ml @ 0 mls/hr PROTOCOL IV 07/06/24 10:30 07/06/24 11:33 DC Dobutamine HCl/ Dextrose 250 ml @ 0 mls/hr PROTOCOL IV 07/06/24 12:00 08/05/24 11:59 07/12/24 11:57 12.25 MLS/HR Dopamine HCl/ Dextrose 250 ml @ 0 mls/hr PROTOCOL IV 07/05/24 13:00 07/05/24 13:48 DC Furosemide (LASix 40MG TAB) 40 mg BID@09,17 PO 07/09/24 17:00 07/11/24 18:26 DC 07/11/24 08:56 40 MG Guaifenesin/ Dextromethorphan (RobiTUSSin DM 200/20MG 10ML) 10 ml Q6H PRN PO COUGH 07/04/24 13:30 08/03/24 13:29 Heparin Sodium (Porcine) (HEParin 5,000 UNIT VIAL) 5,000 unit ONCE SQ 07/04/24 13:00 07/04/24 13:37 DC 07/04/24 12:59 5,000 UNIT Insulin Glargine (LANtus 100 UNITS/ML 10 ML VIAL) 10 units DAILY SQ 07/05/24 09:00 08/04/24 08:59 07/13/24 09:05 10 UNITS Insulin Human Regular (humuLIN R 100 UNIT/ML 3ML) INSULIN SLIDING SCAL... ACHS SQ 07/04/24 16:30 08/03/24 16:29 07/13/24 12:40 4 UNIT Ipratropium [place] (AtrovENT UD) 0.5 mg Q6H PRN IH SHORTNESS OF BREATH 07/04/24 14:00 07/06/24 14:21 DC Lactulose (Constulose 20gm/ 30ml Udcup) 20 gm BID PRN PO CONSTIPATION 07/06/24 12:00 08/05/24 11:59 Losartan Potassium (CozAAR 25MG TAB) 25 mg DAILY PO 07/05/24 09:00 07/04/24 16:43 DC Magnesium Sulfate 50 ml @ 0 mls/hr PROTOCOL IV 07/04/24 14:00 08/03/24 13:59 07/09/24 07:01 25 MLS/HR Nitroglycerin (Nitrostat) 0.4 mg AD PRN SL CHEST PAIN 07/04/24 14:00 08/03/24 13:59 Ondansetron HCl (zoFRAN 4MG INJ) 4 mg Q6H PRN IVP NAUSEA/VOMITING 07/04/24 14:00 08/03/24 13:59 Potassium Chloride 100 ml @ 50 mls/hr AD PRN IV POTASSIUM PROTOCOL 07/04/24 20:30 08/03/24 20:29 Potassium Chloride (K-Dur 10meq Sr Tab) 10 meq AD PRN PO POTASSIUM PROTOCOL 07/05/24 09:30 08/03/24 20:29 07/11/24 06:05 10 MEQ Potassium Chloride (K-Dur/Klor-Con 20meq) 10 meq AD PRN PO POTASSIUM PROTOCOL 07/04/24 20:30 07/05/24 09:02 DC Potassium Chloride (KCl 10% Elixir 20meq/15ml) 10 meq AD PRN PO POTASSIUM PROTOCOL 07/04/24 20:30 08/03/24 20:29 07/13/24 06:01 10 MEQ DIAGNOSTICS / RADIOLOGY: [ ] ASSESSMENT: 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, POA Hx of severe suspected Ischemic Cardiomyopathy with LVEF less than 20%, POA Status post left heart catheterization 07/10/2024 findings of multivessel CAD Acute Hypoxemic respiratory failure with Cardiogenic Pulmonary edema, POA JOAQUÍN on CKD with Suspected underlying Cardiorenal Syndrome, POA Nephrotic range proteinuria, POA Elevated Troponin, likely due to CHF exacerbation and Demand Ischemia, r/o active ACS, POA Hx of Bilateral Vitreous Hemorrhage with legal blindness, POA Hx of Bilateral Cataracts of the eyes, POA diabetes mellitus type II A1c 9.6 - POA stage III chronic kidney disease - POA hyperlipidemia - POA hypertension - POA Right sided Pleural Effusion, POA cardiorenal syndrome - POA bilateral diabetic or hypertensive retinopathy bilateral diabetic neuropathy former smoker Uncontrolled Hypothyroidism, POA PLAN: Admit to PCCU Acute on chronic combined congestive heart failure exacerbation Severe CHF with EF less than 20 %, stage III diastolic dysfunction Hx of positive stress test in 02/27 Cardiogenic Pulmonary edema with right sided pleural effusion Rule out ACS - continue to follow Cardiology input and recommendation - continue dobutamine drip -echocardiogram with LVEF less than 20% - status post left heart catheterization 07/10/2024 finding of multivessel CAD -Cardiothoracic surgery consultation requested, input noted and appreciated, patient will require CABG -worsening renal function, we will request Nephrology consultation - Strict I & Os - Daily weight - Fluid restriction less than 1.5L in 24 hour - Heart healthy diet - Follow hemodynamics JOAQUÍN on CKD Suspected Cardiorenal syndrome Stage III chronic kidney disease Diabetes type II A1c 9.6 Bilateral diabetic/hypertensive retinopathy Bilateral diabetic neuropathy Hypertension -continue to follow Nephrology input and recommendation - renal ultrasound no obstruction -continue to monitor renal function in a.m. - Strict monitoring of intake, output and overall fluid balance - Daily weights - Avoid nephrotoxic medications to the extent possible - Monitor electrolytes and replace as needed - Medications to be dosed according to renal function Acute Hypoxic Respiratory due to Pulmonary edema Right sided Pleural Effusion as per chest xray 07/04/24 No evidence of reactive airway disease, discontinue nebulizer treatments Hx of Bilateral vitreous hemorrhage with legal blindness Hx of bilateral cataracts Hx of retinopathy of bilateral eyes - Patient reports that his vision worsened after [place] antico[place] and antiplate[place] [facility] [place] he wants to hold off on heparin gtt or full dose Lovenox. I spoke with Dr. Nolan with Ophthalmology who stated that patient has been legally blind since 08/28. Per her, we can proceed with antiplatelet/ anticoagulation as benefits of treating his cardiac comorbidities outweigh the risk of worsening his vision. Patient still wants to hold off on a/c as he worried about losing his vision. Per Dr. Nolan, she may evaluate him in [facility] [place] in the next 2-3 days, if unable to, she recommended close ooutpatient follow up with Ophthalmology in clinic Hyperlipidemia - Atorvastatin 20 mg HS - Zofran 4mg q6h prn nausea - Acetaminophen 500 mg PO q6h for pain - DVT prophylaxis - SCD's of bilateral legs - PT/OT - Repeat Labs in the AM - Repeat Chest Xray in the AM - Follow further medical management per Nephrology and Cardiology recommendations Disposition: Patient remains admitted to the progressive care unit, he remains on dobutamine drip, creatinine at 2.6, discussed with shorthand teacher. Continue to follow in a.m.. Per my discussion with the patient today, he does not want to pursue surgical intervention at the present time, as he is concerned about possible intraocular bleed, he would prefer to follow up with the dry folder cloth as an outpatient. I have contacted dry folder cloth Dr. Nolan at phone number [phone], patient can follow up as an outpatient upon discharg e. Anticipate discharge home in the next 24 hours if medically stable. Plan of action discussed with the patient, all questions answered, agreed and understood the information provided. Total PCU time spent greater than 30 minutes. GARRY GUERRA MD Jul 13, 2024 13:20
[2024-07-13 16:02] LABS: CREATININE 2.3 mg/dL (0.5-1.3); POTASSIUM 3.7 mmol/L (3.5-5.1)
[2024-07-13 19:46] LABS: ABG BASE EXCESS 0.2 mmol/L (-2.0-3.0); ABG HCO3 23.8 mmol/L (21.0-28.0); ABG OXYGEN SATURATION 96.5 % (94.0-98.0); ABG PCO2 35 mmHg (35-48); ABG PH 7.446 (7.350-7.450); CARBON MONOXIDE 0.7 % (0.5-1.5); DEVICE COMMENT RR; HHb 3.5; PO2, ARTERIAL BG 87.2 mmHg (83.0-108.0); VENT MODE, BG RA (ROOM AIR)
[2024-07-13] MEDS: LATANOPROST 2.5 ML DROPS OU SCH (20:23)
[2024-07-13] MEDS: ALPRAZolam 0.25 MG TABLET PO ONE (20:23)
--- NOTE | 2024-07-13 23:44 | PN ---
CARDIOLOGY Reason for consult: CHF HPI/story at presentation: This is a pleasant 64-year-old male with past medical history of the present with complaints of shortness of breath, was diagnosed with CHF exacerbation cardiology was consulted for further evaluation management. Known history of cardiomyopathy, ejection fraction 15 to 20% with previous stress testing with no ischemia or infarction pattern, 02/2024 he has been noncompliant with Lasix at home, here for further eval Management Subjective: 07/04/2024, shortness of breath, lower extremity edema feeling better 07/06/2024 patient seen and evaluated at bedside No events were reported overnight Patient reports overall feeling better today Continues on IV dobutamine at 2.5 07/08/2024 edema and sob better 07/09/2024 no overnight events 07/11/24 chest pain and sob better 07/12/24 no complaints 07/13/2024 no complaints Past medical history: See below Allergies, Meds See chart Review of systems Review of Systems Constitutional: Negative for chills and fever. HENT: Negative for ear discharge and ear pain. Eyes: Negative for photophobia and discharge. Respiratory: Negative for cough, sputum production and stridor. Cardiovascular: Negative for chest pain and palpitations. Gastrointestinal: Negative for diarrhea and vomiting. Genitourinary: Negative for frequency. Musculoskeletal: Negative for myalgias. Skin: Negative for rash. Neurological: Negative for focal weakness and seizures. Endo/Heme/Allergies: Negative for polydipsia. Psychiatric/Behavioral: Negative for hallucinations. Vitals see chart PHYSICAL EXAMINATION GENERAL: The patient is alert and oriented*3 HEENT: Nonicteric sclerae, non traumatic HEART: Regular rate and rhythm with no murmurs LUNGS: Clear to auscultation bilaterally ABDOMEN: No acute issues, non tender GENITAL, RECTAL: deferred SKIN: No rash NEUROLOGIC: NFND EXTREMITIES:EDEMA 06/2024 ASSESSMENT EXACERBATION OF CHF, CARDIOMYOPATHY Noncompliant with diuretics at home History of suspected ischemic cardiomyopathy Stress test with infarction pattern, 02/2024 Ejection fraction of 15 to 20%, 06/2024 On diuresis with Bumex, 06/2024 Normal venous Dopplers, 06/2024 NSTEMI Initial troponin of 1600, trending down HEMATURIA Moderate hematuria, 06/2024 CHRONIC KIDNEY DISEASE Stage III 1.8 at presentation Creatinine at discharge from hospital, 06/2024 was 2.2 HYPERTENSION HYPERLIPIDEMIA DIABETES, TOBACCO USE CORE MEASURES Not on guideline directed medical therapy for cardiomyopathy given renal dysfunction OTHER MEDICAL PROBLEMS Anxiety disorder Diabetic neuropathy PLAN 07/04/2024 patient with NSTEMI, CHF exacerbation at presentation. Although type II elevation is possible, given presentation, will need to ensure that he does not have underlying ACS. EKG with non specific changes and no chest pain. Ideally, needs to be on anticoagulation with heparin to help with potential ACS. However, at this time, patient is concerned about increased retinal bleeding with anticoagulation and had not been on antiplatelets or anticoagulants before for the same reason. Although risk of myocardial injury is a concern, troponins are trending down and given risk of visual loss, after extensive discussion with the patient, plan is not to anticoagulate at this time. Will repeat echocardiogram to reassess ejection fraction. Post diuresis, may consider ischemic evaluation as needed. Also, underlying cardiorenal syndrome and therefore, may need dobutamine support for diuresis. Will follow closely 07/05/2024 breathing better, -600 on output, Remains on Bumex 3 times daily, also got a dose of metolazone this morning, potassium is being replaced. Will add a small dose of dobutamine to help with diuresis. Do not titrate and leave at 2.5. Hopefully, this helps his renal function as well. Primary team reached out to ophthalmology on-call and per ophthalmology, may consider anticoagulation if needed/antithrombotics if needed in spite of previous history of vitreal hemorrhage and proliferative retinopathy given risk and benefit. Patient himself would like to stay of antithrombotics if possible. Troponins have trended down and at this time, plan remains to stay off anticoagulation. Will consider coronary angiography prior to discharge depending on renal function and clinical course. Continue diuresis. 07/06/2024 patient is Bumex was decreased to every 12 hours. Attempted to increase dobutamine drip to 5. The patient experienced sinus tachycardia rate of 120 to 130 shortly after. Dobutamine drip was decreased back to 2.5. Creatinine increased to 2.4 today. Continue with Nephrology recommendations Repeat BMP in the AM Avoid any nephrotoxic medications as possible Will discuss coronary angiogram if renal function improves. ; Agree, Bumex was tapered because of worsening renal function. Remains on dobutamine. Having issues with anxiety, doing well. Seen and examined around 8 PM. 07/07/2024 Doing well, ongoing diuresis, issues with anxiety yesterday but has done well. Did receive a dose of Xanax yesterday. Continues to diurese, edema still present. Remains on dobutamine at 2.5. Creatinine today is better at 2.1. Continue current Bumex and dobutamine regimen. Plans remain for eventual cardiac catheterization once renal function improves and diuresis is complete. No plans for anticoagulation as above. 07/08/2024 Has had about 7 L out yesterday continues to diurese well. Remains on dobutamine with mild tachycardia. Potassium is being replaced. lower extremity edema progressively improving. Tentative plan for cardiac catheterization on Wednesday to further evaluate underlying cardiomyopathy. 07/09/2024 Bumex has been transitioned to Lasix. Plan for cardiac catheterization tomorrow. Will try to limit contrast use during procedure as much as possible. No plans for anticoagulation perioperatively given eye issues. Therefore, we will go femoral instead of radial approach. Per discussion with ophthalmology at admission, anticoagulation is okay if necessary however, patient still remains hesitant. Further recommendations on the basis of findings on cardiac catheterization. Only diagnostic planned at this point 07/10/2024 status post cardiac catheterization today showing multivessel coronary artery disease. Mid to distal LAD is a small vessel that fills via collaterals and is totally occluded prox, circumflex with severe disease in the RCA with severe disease as well. Underlying cardiomyopathy increases his overall risk. We will get CV surgery to see patient, however, even though patient may not need long-term antithrombotics after bypass, may need perioperative anticoagulation. This may be a concern in the setting of intra-ocular bleed issues and will need ophthalmology clearance. Appreciate evaluation. Only 10 cc of contrast was used during the procedure, risk of ISHAN is thought to be low 07/11/24 Overall doing well, renal function worse, output is not being monitored, edema is present, but lungs clear, will repeat BMP and consider volume replenishment if needed. eventual plan for impella assisted CABG per CVT surgery. Appreciate. 07/12/24 doing well, renal function better off diuresis, volume status is still ok, concern for shirin-op anticoagulation and eye bleeding, will also need impella asistance for intervention. will discuss with cvt, primary and ophthal. patient may want eye fixed before bypass? 07/13/2024 Creatinine was elevated this morning before, was repeated after dobutamine support and this has improved (more pre-renal). CV surgery is not being immediately considered because of risk of potential bleeding associated with perioperative antithrombotics and previous history of intraocular bleeding. Ophthalmology evaluation either as an inpatient or an outpatient is currently being considered. Will restart a small dose of diuresis. Urine sodium was 55, fena 0.7. ATTESTATION I was involved substantially in the care of this patient Number and complexity of problems addressed: 1 acute illness with severe exacerbation Amount and or complexity of data Review of prior external note(s) from each unique source: 2+ Ordering of each unique test : 0 Review of the result(s) of each unique test: 2+ Assessment requiring an independent historian(s): No Independent interpretation of test performed by another MD/QHCP/appropriate source (not separately reported) : No Discussion of management or test interpretation with external MD/QHCP/appropriate source (not separately reported) : No Risk status (cardiac, billing related): High Vitals/Labs Vital Signs Date Time Temp Pulse Resp B/P (MAP) Pulse Ox O2 Delivery O2 Flow Rate FiO2 07/13/24 20:00 100 Room Air* 0 21 07/13/24 19:30 98.1 58 18 114/67 Laboratory Tests 07/13/24 03:41 07/13/24 15:49 Medications Current Medications Aspirin 325 mg ONCE ONCE PO Last administered on 07/04/24at 12:59; Start 07/04/24 at 13:00; Stop 07/04/24 at 13:01; Status DC Heparin Sodium (Porcine) 5,000 unit ONCE SQ Last administered on 07/04/24at 12:59; Start 07/04/24 at 13:00; Stop 07/04/24 at 13:37; Status DC Guaifenesin/ Dextromethorphan 10 ml Q6H PRN PO; Start 07/04/24 at 13:30; Stop 08/03/24 at 13:29 Bumetanide 1 mg Q8H IVP Last administered on 07/06/24at 05:42; Start 07/04/24 at 13:30; Stop 07/06/24 at 08:38; Status DC Insulin Human Regular INSULIN SLIDING SCAL... ACHS SQ Last administered on 07/13/24at 20:24; Start 07/04/24 at 16:30; Stop 08/03/24 at 16:29 Magnesium Sulfate 50 ml @ 0 mls/hr PROTOCOL IV Last administered on 07/09/24at 07:01; Start 07/04/24 at 14:00; Stop 08/03/24 at 13:59 Acetaminophen 500 mg Q6H PRN PO Last administered on 07/06/24at 14:35; Start 07/04/24 at 14:00; Stop 08/03/24 at 13:59 Ondansetron HCl 4 mg Q6H PRN IVP; Start 07/04/24 at 14:00; Stop 08/03/24 at 13:59 Ipratropium [place] 0.5 mg Q6H PRN IH; Start 07/04/24 at 14:00; Stop 07/06/24 at 14:21; Status DC Budesonide 0.5 mg BIDRESP IH Last administered on 07/06/24at 06:27; Start 07/04/24 at 18:00; Stop 07/06/24 at 14:21; Status DC Aspirin 81 mg DAILY PO Last administered on 07/13/24at 09:06; Start 07/05/24 at 09:00; Stop 08/04/24 at 08:59 Nitroglycerin 0.4 mg AD PRN SL; Start 07/04/24 at 14:00; Stop 08/03/24 at 13:59 Losartan Potassium 25 mg DAILY PO; Start 07/05/24 at 09:00; Stop 07/04/24 at 16:43; Status DC Potassium Chloride 100 ml @ 50 mls/hr AD PRN IV; Start 07/04/24 at 20:30; Stop 08/03/24 at 20:29 Potassium Chloride 10 meq AD PRN PO Last administered on 07/13/24at 06:01; Start 07/04/24 at 20:30; Stop 08/03/24 at 20:29 Potassium Chloride 10 meq AD PRN PO; Start 07/04/24 at 20:30; Stop 07/05/24 at 09:02; Status DC Potassium Chloride 40 meq ONCE ONCE PO Last administered on 07/04/24at 20:57; Start 07/04/24 at 21:00; Stop 07/04/24 at 21:01; Status DC Potassium Chloride 100 ml @ 100 mls/hr ONCE ONCE IV; Start 07/05/24 at 00:00; Stop 07/05/24 at 00:59; Status DC Alprazolam 0.25 mg ONCE ONCE PO Last administered on 07/04/24at 23:47; Start 07/04/24 at 23:00; Stop 07/04/24 at 23:01; Status DC Insulin Glargine 10 units DAILY SQ Last administered on 07/13/24at 09:05; Start 07/05/24 at 09:00; Stop 08/04/24 at 08:59 Metolazone 5 mg ONCE ONCE PO Last administered on 07/05/24at 09:24; Start 07/05/24 at 09:00; Stop 07/05/24 at 09:01; Status DC Potassium Chloride 10 meq AD PRN PO Last administered on 07/11/24at 06:05; Start 07/05/24 at 09:30; Stop 08/03/24 at 20:29 Atorvastatin Calcium 20 mg HS PO Last administered on 07/13/24at 20:23; Start 07/05/24 at 21:00; Stop 08/04/24 at 20:59 Dopamine HCl/ Dextrose 250 ml @ 0 mls/hr PROTOCOL IV; Start 07/05/24 at 13:00; Stop 07/05/24 at 13:48; Status DC Dobutamine HCl/ Dextrose 250 ml @ As Directed STK-MED ONCE IV Last administered on 07/05/24at 13:52; Start 07/05/24 at 13:36; Stop 07/05/24 at 13:41; Status DC Dobutamine HCl/ Dextrose 250 ml @ 0 mls/hr PROTOCOL IV; Start 07/05/24 at 14:00; Stop 07/06/24 at 10:18; Status DC Bumetanide 1 mg BID IVP Last administered on 07/09/24at 09:23; Start 07/06/24 at 09:00; Stop 07/09/24 at 11:28; Status DC Dobutamine HCl/ Dextrose 250 ml @ 0 mls/hr PROTOCOL IV; Start 07/06/24 at 10:30; Stop 07/06/24 at 11:33; Status DC Dobutamine HCl/ Dextrose 250 ml @ 0 mls/hr PROTOCOL IV Last administered on 07/13/24at 15:17; Start 07/06/24 at 12:00; Stop 08/05/24 at 11:59 Lactulose 20 gm BID PRN PO; Start 07/06/24 at 12:00; Stop 08/05/24 at 11:59 Alprazolam 0.25 mg ONCE ONCE PO Last administered on 07/06/24at 23:06; Start 07/06/24 at 23:00; Stop 07/06/24 at 23:01; Status DC Alprazolam 0.25 mg ONCE ONCE PO Last administered on 07/07/24at 23:42; Start 07/08/24 at 00:00; Stop 07/08/24 at 00:01; Status DC Furosemide 40 mg BID@09,17 PO Last administered on 07/11/24at 08:56; Start 07/09/24 at 17:00; Stop 07/11/24 at 18:26; Status DC Lidocaine HCl 20 ml STK-MED ONCE .ROUTE; Start 07/10/24 at 12:44; Stop 07/10/24 at 12:45; Status DC Fentanyl Citrate 100 mcg STK-MED ONCE .ROUTE; Start 07/10/24 at 12:44; Stop 07/10/24 at 12:45; Status DC Midazolam HCl 2 mg STK-MED ONCE .ROUTE; Start 07/10/24 at 12:45; Stop 07/10/24 at 12:45; Status DC Iohexol 35,000 mg STK-MED ONCE IV; Start 07/10/24 at 12:45; Stop 07/10/24 at 12:45; Status DC Nicardipine HCl 25 mg STK-MED ONCE IV; Start 07/10/24 at 12:45; Stop 07/10/24 at 12:45; Status DC Heparin Sodium/ Sodium Chloride 0 ml @ As Directed STK-MED ONCE IV; Start 07/10/24 at 12:45; Stop 07/10/24 at 12:46; Status DC Nitroglycerin 50 mg STK-MED ONCE .ROUTE; Start 07/10/24 at 12:45; Stop 07/10/24 at 12:46; Status DC Alprazolam 0.25 mg ONCE ONCE PO Last administered on 07/11/24at 01:33; Start 07/11/24 at 01:30; Stop 07/11/24 at 01:31; Status DC Alprazolam 0.25 mg NOW ONCE PO Last administered on 07/11/24at 21:59; Start 07/11/24 at 21:30; Stop 07/11/24 at 21:31; Status DC Potassium Chloride 40 meq ONCE ONCE PO; Start 07/12/24 at 08:30; Stop 07/12/24 at 08:31; Status DC Alprazolam 0.25 mg NOW ONCE PO Last administered on 07/12/24at 23:26; Start 07/12/24 at 23:00; Stop 07/12/24 at 23:01; Status DC Latanoprost 1 DROP OU HS HS OU Last administered on 07/13/24at 20:23; Start 07/13/24 at 21:00; Stop 08/12/24 at 20:59 Alprazolam 0.25 mg ONCE ONCE PO Last administered on 07/13/24at 20:23; Start 07/13/24 at 20:00; Stop 07/13/24 at 20:01; Status DC GUSTAVO PRUITT MD Jul 13, 2024 23:44
[2024-07-14 04:00] VITALS: BP 114/70; PULSE 117; RESP 18; TEMP 98
[2024-07-14 04:19] LABS: HEMATOCRIT 34.4 % (42-54); MEAN CORPUSCULAR HEMOGLOBIN 26.6 pg (27.0-33.0); MEAN CORPUSCULAR VOLUME 83.3 fL (79-99); RED BLOOD CELL COUNT(AUTO) 4.13 MIL/uL (4.50-6.20); RED CELL DISTRIBUTION WIDTH 16.4 % (11.0-15.5); WHITE BLOOD COUNT (AUTO) 6.8 K/uL (4.8-10.8)
[2024-07-14 04:47] LABS: ALBUMIN 2.4 g/dL (3.5-5.0); BILIRUBIN,TOTAL 0.9 mg/dL (0.2-1.0); POTASSIUM 3.6 mmol/L (3.5-5.1); TOTAL PROTEIN, SERUM 7.2 g/dL (6.0-8.3)
[2024-07-14 07:00] VITALS: BP 114/78; PULSE 113; RESP 20; TEMP 98.2
[2024-07-14 07:44] VITALS: O2SAT 97
[2024-07-14] MEDS: furoSEMIDE 40 MG TABLET PO SCH (08:25)
--- NOTE | 2024-07-14 09:38 | PN ---
SUBJECTIVE: A 64-year-old male with history of known severe cardiomyopathy. The patient presented to the hospital with increasing shortness of breath, orthopnea. The patient was started on the diuretics. The patient underwent coronary catheterization that revealed significant 3-vessel disease. The patient is refusing bypass surgery and the patient is being seen as a followup visit for all of the above. REVIEW OF SYSTEMS: GENERAL: The patient is feeling weak and tired. HEENT: No change in vision. No change in hearing. CARDIOVASCULAR: No current chest pains or palpitations. PULMONARY: There is no shortness of breath. GASTROINTESTINAL: The patient is tolerating diet. MUSCULOSKELETAL: Complains of weakness. PHYSICAL EXAMINATION:. VITAL SIGNS: Blood pressure is 114/78, pulse 100s. GENERAL: Chronically ill male, lying in bed on the medical floor. HEENT: Head is atraumatic. Pupils are equal, roving to light. Oropharynx is without exudate. Nares clear. NECK: There is no JVP, no thyromegaly. CARDIOVASCULAR: Regular. There is no S3, S4 gallop. LUNGS: Coarse with equal thoracic movement. ABDOMEN: Soft, nondistended, nontender. EXTREMITIES: No clubbing, no cyanosis. NEUROLOGIC: He is awake. He is alert. LABORATORY DATA: Sodium 133, BUN 51, creatinine is 2. Hemoglobin 11, hematocrit 34. IMPRESSION: * Renal dysfunction. * Cardiomyopathy. * Coronary artery disease. * Diabetes mellitus. PLAN: The patient's creatinine continues to stabilize. The patient is refusing the coronary bypass graft surgery. The patient can safely be discharged from a renal standpoint. If the patient is discharged, the patient can follow up in the [facility]al [facility]. TID: [id number] RECEIPT: [id number]
[2024-07-14 11:00] VITALS: BP 110/75; PULSE 10; RESP 20; TEMP 97.6
[2024-07-14] MEDS ORDERED: NITR0.4T50 SL (13:50)
[2024-07-14] MEDS ORDERED: LATA2.5D15 OU (13:50)
--- NOTE | 2024-07-14 14:33 | DS ---
Discharge Summary Hospital Course Summary: The patient initially admitted to the hospital 07/04/2024 with the following history of the present illness: 64 year old male with a past medical history of hypertension, hyperlipidemia, uncontrolled diabetes type II A1c 9.6, diabetic neuropathy, stage 3 chronic kidney disease, Hx of proliferative retinopathy of bilateral eyes with bilateral vitreous hemorrhage and bilateral cataracts (Legally blind of both eyes) and hx of suspected severe ischemic cardiomyopathy who presented to the ED with complaints of being short of breath for the past four days and lower extremity swelling. Patient states he was diagnosed with advanced heart failure in February and was prescribed Lasix. Patient states that since he is in house arrest he has trouble getting his prescriptions and is seeking medication refill. He denies chest pain, vomiting, abdominal pain, diarrhea, constipation, and fever. He has been unable to follow up with Cardiology as outpatient. Patient also states when he sleeps he wakes up gasping for air and is unable to walk more than 50-60 feet. Patient was hospitalized in [facility] in February, for heart failure exacerbation. Patient was seen by Cardiology and underwent stress test. Patient reports receiving anticoagulation therapy during hospitalization which caused severe vision movement which took several months to slowly improve. Patient reports he continued to be legally blind. Patient was advised on cardiac catheterization but due to hx of vitreous hemorrhage, patient opted for medical management minimizing antiplatelet/ anticoagulant therapy. In the ED patient was given aspirin and a 12 lead EKG showed sinus rhythm with multiple premature complexes probably due to left ventricular hypertrophy with nonspecific T abnormalities. A chest x-ray shows cardiomegaly with possible early edema and an elevated right hemidiaphragm with a small to moderate right pleural effusion. Remarkable labs: Hemoglobin 13.3, hematocrit 41.7, elevated PT of 11.8, elevated troponins of 1404. Urinalysis shows proteinuria 600, hematuria, hyaline casts and positive for urobilinogenuria. AST 67, ALK-PHOS 232, CRP 11.8, TSH 20.11. Physical exam showed bilateral lower lobe crackles on auscultation with bilateral pitting edema on the lower extremities. Abdomen was soft and nontender. Patient will be admitted for further management of heart failure exacerbation in the setting of severe cardiomyopathy with EF less than 20 %. Patient will be admitted to Cardiac telemetry floor and consultation with Nephrology and Cardiology will be requested. 07/05 Pt seen at bedside, no acute events overnight. Shortness of breath has improved, however he still has orthopnea and cough. Lower extremities with 2+ pitting edema. Will continue with diuresis, further care per cardiology. He is hemodynamically stable. Creatinine improved from 2.0 down to 1.9, sodium decreased from 138 down to 130, remainder of his labs are relatively unremarkable. 07/06 Pt seen at bedside, no acute events overnight. He has no complaints today. Diuresing well with approximately 2.5L urine output in 24 hours, weight decreased from 91.1 down to 89.2kg. Creatinine increased from 1.9 up to 2.4, bumex decreased to 1mg BID, pt continues on dobutamine drip. Remainder of his labs are relatively unremarkable 07/07 Pt seen at bedside, no acute events overnight. He remains tachycardic, HR in the 120s. He continues to diurese, continue bumex 1mg BID per cardiology. Sodium stable at 131, similar to yesterday, potassium improved from 3.1 up to 3.5 with repletion, will continue to trend, creatinine decreased from 2.4 down to 2.1. Discussed with cardiology who believes the tachycardia is secondary to dobutamine however it is helping with the renal functio and would like to continue overnight and reassess renal function in the am. If improving will likely wean off the dobutamine. 07/08 Pt seen at bedside, no acute events overnight. He remains tachycardia. Creatinine stable at 2.1, CO2 elevated at 36, similar to yesterday, BNP improved from 3830 down to 1850, remainder of his labs are relatively unremarkable. Pending weaning of dobutamine by cardiology 07/09 Pt continues with diuresis per cardiology. Pending possible cardiac cath tomorrow, will follow up with cardiology. He remains tachycardic, creatinine improved from 2.1 down to 1.8, approximately 1.7L urine output in the last 24 hours, further care per cardiology. 07/10 the patient has been seen and examined during my rounding, no acute events overnight, patient on dobutamine drip, blood pressure 116/77, heart rate of 110, afebrile, saturating normal on room air. The patient is alert oriented x3, awaiting left heart catheterization by private eye today. Denied chest pain, shortness shortness for breath, no nausea, no vomiting. No family members at bedside during my visit. 07/11 the patient has been seen and examined during my rounding, no acute events overnight, remains on dobutamine drip, underwent left heart catheterization yesterday, tolerated procedure well, findings discussed, all questions answered. He remains hemodynamically stable, BP 123/56, afebrile, saturating normal on room air. He denied chest pain, no shortness a breath, no nausea, no vomiting, no abdominal discomfort. Creatinine function today worse compared to yesterday at 2.5. He denies any difficulty urinating. 07/12 the patient has been seen and examined today during my rounding, no acute overnight, hemodynamically stable, afebrile, saturating normal on room air, he remains on dobutamine drip. 07/13 has been seen and examined during my rounding today, remains on dobutamine drip, alert oriented x3, denied chest pain, shortness shortness for breath, no nausea, no vomiting. During the course of the hospitalization left heart catheterization was done July 10, 2024 with finding of multivessel CAD, total occlusion of the proximal LAD, small mid and distal LAD filled via collaterals, 1st obtuse marginal artery had 80% stenosis, the proximal RCA has 90% disease in the LAD and RCA filled via collaterals. Per private eye, recommended Cardiothoracic surgery evaluation, aggressive risk factor modification and to maximize medical therapy. Patient was placed on dobutamine drip. Because of renal failure, nephrology consultation requested, recommendations were followed. Renal function improved. The patient with prior history of intra-ocular bleed, c oncern about dual antiplatelet therapy as well as perioperative antithrombotic medications. He stated that he would like to defer surgical intervention for now, be discharged home so he can follow up as an outpatient with the pasteuriser operator. Screen Making Supervisor contacted several times during hospitalization, note is in the chart, clear from Ophthalmology point of view to proceed with surgical intervention as benefits outweigh the risk, however the patient refusing surgical intervention, we will like to be discharged home and follow up as an outpatient. He would follow up as an outpatient with Dr. Adams as an outpatient as well. Today the patient is alert oriented x3, he is hemodynamically stable, he denies dizziness, no blurry vision, no chest pain, no shortness a breath, no nausea, no vomiting, no abdominal discomfort, no diarrhea, no constipation, no melena, no hematochezia, no hematemesis, no hematuria, no dysuria. GENERAL APPEARANCE: The patient is awake, alert, and oriented, in no acute cardiopulmonary distress. NEUROLOGICAL: Cranial nerves II-XII grossly intact. Motor is 5/5 in bilateral upper and lower extremities proximal to distal. No sensory deficits. HEENT: Face is symmetric. Pupils are equal and reactive. Extraocular movements are intact. NECK: Supple. No JVD. No thyromegaly. No submental, submandibular, pre- /postauricular, occipital or supraclavicular lymphadenopathy. CHEST: Normal chest expansion. No Telemetry. LUNGS: bilateral lower lobe crackles CARDIOVASCULAR: Regular. S1 and S2 normal. No appreciable rubs, murmurs or gallops. ABDOMEN: Soft, nontender, and nondistended. There is no rebound, voluntary guarding, or rigidity. : Deferred. No Guillermo. EXTREMITIES: 2+ bilateral lower leg pitting edema. not cyanotic. No clubbing. Good capillary refill. SKIN: No skin breakdown. Head Charger(s): Cardiology, Cardiothoracic surgeon and compliance administrator. Procedure(s): OPERATIVE REPORT Name: RENATA BANERJEE Acct: [id number] MR: [id number] : 1960 Admit Date: 07/04/24 GUSTAVO PRUITT MD [facility] [address] [place] [id number] Operative Note: PROCEDURES PERFORMED: 1. Left heart catheterization. 2. Selective coronary angiography. 3. Moderate sedation INDICATION FOR PROCEDURE: DESCRIPTION OF PROCEDURE: The patient was brought to the cardiac catheterization lab in fasting state, informed consent was obtained and the patient was prepped and draped in sterile fashion. Mild sedation was administered via versed and fentanyl. I was present during administration of sedation. The right femoral artery region was then anesthetized via 10 mL of 2% lidocaine and the right fenoral artery was accessed via seldinger technique and a 6-Turkmen femoral arterial sheath was advanced over a guidewire using modified Seldinger technique.Next, a 5-Turkmen FL4 and FR4 catheter were advanced over the guidewire to the level of the ascending aorta. The catheter(s) was used to selectively engage the left main coronary artery and RCA. The right coronary artery and LM and its branches were then imaged in multiple planes and views. At the conclusion of the procedure, the patient had the femoral arterial sheath removed in the cardiac catheterization lab with hemostasis obtained via manual pressure and the patient was transferred to the Cardiac Nurse Practitioner observation area. Blood loss was minimal. Moderate sedation: Moderate sedation was used during the procedure, moderate sedation was started at 1300 and completed at 1320 . Patient tolerated the procedure well.Continuous hemodynamic and physiological monitoring was present throughout the procedure. ASA and Mallampatti were assessed prior to the procedure as well. SELECTIVE CORONARY ANGIOGRAPHY: 1. Left main: The left main bifurcates into the left anterior descending and circumflex coronary artery. NO significant disease 2. Left anterior descending: The left anterior descending coronary artery gives rise to diagonal(s) and terminates as the apical recurrent branch. total occlusion of the prox LAD, small mid and distal LAD filled via collaterals 3. Circumflex: The circumflex coronary artery is noted to provide obtuse marginal(s). First obtuse marginal artery had 80% stenosis 4. Right coronary artery: The right coronary artery is dominant and gives PDA and NOÉ. The proximal RCA has 90% disease 5. Left ventricular end-diastolic pressure is elevated. There was no gradient noted upon pullback. Impression Multivessel CAD total occlusion of the prox LAD, small mid and distal LAD filled via collaterals First obtuse marginal artery had 80% stenosis The proximal RCA has 90% disease The LAD and RCA fill via collaterals PLAN: CVT surgery eval Aggressive risk factors modification Maximize medical therapy GUSTAVO PRUITT MD Jul 10, 2024 13:27 Electronically Signed by: GUSTAVO PRUITT MD07/10/24 1327 Electronically Co-Signed by: Addendum: GUSTAVO PRUITT MD on 07/10/24 @ 13:30 Only 10 cc of contrast was used during the procedure, risk of ISHAN is thought to be low Addendum# 1 <Electronically signed by GUSTAVO PRUITT MD> 07/10/24 1330 Assessment/Plan: Final diagnosis 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, POA Hx of severe suspected Ischemic Cardiomyopathy with LVEF less than 20%, POA Status post left heart catheterization 07/10/2024 findings of multivessel CAD Acute Hypoxemic respiratory failure with Cardiogenic Pulmonary edema, POA JOAQUÍN on CKD with Suspected underlying Cardiorenal Syndrome, POA Nephrotic range proteinuria, POA Elevated Troponin, likely due to CHF exacerbation and Demand Ischemia, r/o active ACS, POA Hx of Bilateral Vitreous Hemorrhage with legal blindness, POA Hx of Bilateral Cataracts of the eyes, POA diabetes mellitus type II A1c 9.6 - POA stage III chronic kidney disease - POA hyperlipidemia - POA hypertension - POA Right sided Pleural Effusion, POA cardiorenal syndrome - POA bilateral diabetic or hypertensive retinopathy bilateral diabetic neuropathy former smoker Uncontrolled Hypothyroidism, POA Discharge Instructions: The patient to follow up with primary care physician, pasteuriser operator, private eye and Cardiothoracic surgeon as well as compliance administrator as an outpatient. Patient was advised to return to the hospital if condition changes. Patient agreed with plan and understood the information provided. Home Medications: Active Scripts Nitroglycerin (Nitroglycerin) 0.4 Mg Tab.subl, 1 TAB SL AD for chest pain, #25 TAB 1 Refill 1st sign of attack; may repeat every 5 mins; if pain persists after 3 in 15 min, medical attention is recommended Prov:GARRY GUERRA MD 07/14/24 Latanoprost (Xalatan) 0.005 % Drops, 0 DROP OU HS for 30 Days, #1 DROP 1 Refill as directed Prov:GARRY GUERRA MD 07/14/24 Reported Medications Levothyroxine Sodium (Levothyroxine) 50 Mcg Capsule, 1 CAP PO DAILY for 30 Days, #30 CAP 0 Refills 07/04/24 Metoprolol Succinate (Metoprolol Succinate) 50 Mg Tab.er.24h, 1 TAB PO DAILY for 30 Days, #30 TAB 0 Refills 07/04/24 Meloxicam (Meloxicam) 15 Mg Tablet, 15 MG PO DAILY, TAB 07/04/24 Losartan Potassium (Losartan Potassium) 25 Mg Tablet, 1 TAB PO DAILY for 30 Days , #30 TAB 0 Refills 07/04/24 Famotidine (Famotidine) 20 Mg Tablet, 20 MG PO DAILY, TAB 07/04/24 Atorvastatin Calcium (Atorvastatin Calcium) 20 Mg Tablet, 20 MG PO HS, TAB 07/04/24 Aspirin (ASPIRIN 81 MG ECTAB) 81 Mg Ectab, 81 MG PO DAILY, TAB.EC 07/04/24 Discontinued Reported Medications Furosemide (Furosemide) 40 Mg Tablet, 40 MG PO BID, TAB 07/04/24 Time spent arranging discharge: 31-60 minutes GARRY GUERRA MD Jul 14, 2024 14:33
--- NOTE | 2024-07-14 22:33 | PN ---
Reason for consult: CHF HPI/story at presentation: This is a pleasant 64-year-old male with past medical history of the present with complaints of shortness of breath, was diagnosed with CHF exacerbation cardiology was consulted for further evaluation management. Known history of cardiomyopathy, ejection fraction 15 to 20% with previous stress testing with no ischemia or infarction pattern, 02/2024 he has been noncompliant with Lasix at home, here for further eval Management Subjective: 07/04/2024, shortness of breath, lower extremity edema feeling better 07/06/2024 patient seen and evaluated at bedside No events were reported overnight Patient reports overall feeling better today Continues on IV dobutamine at 2.5 07/08/2024 edema and sob better 07/09/2024 no overnight events 07/11/24 chest pain and sob better 07/12/24 no complaints 07/13/2024 no complaints 07/14/2024 no complaints Past medical history: See below Allergies, Meds See chart Review of systems Review of Systems Constitutional: Negative for chills and fever. HENT: Negative for ear discharge and ear pain. Eyes: Negative for photophobia and discharge. Respiratory: Negative for cough, sputum production and stridor. Cardiovascular: Negative for chest pain and palpitations. Gastrointestinal: Negative for diarrhea and vomiting. Genitourinary: Negative for frequency. Musculoskeletal: Negative for myalgias. Skin: Negative for rash. Neurological: Negative for focal weakness and seizures. Endo/Heme/Allergies: Negative for polydipsia. Psychiatric/Behavioral: Negative for hallucinations. Vitals see chart PHYSICAL EXAMINATION GENERAL: The patient is alert and oriented*3 HEENT: Nonicteric sclerae, non traumatic HEART: Regular rate and rhythm with no murmurs LUNGS: Clear to auscultation bilaterally ABDOMEN: No acute issues, non tender GENITAL, RECTAL: deferred SKIN: No rash NEUROLOGIC: NFND EXTREMITIES:EDEMA 06/2024 ASSESSMENT EXACERBATION OF CHF, CARDIOMYOPATHY Noncompliant with diuretics at home History of suspected ischemic cardiomyopathy Stress test with infarction pattern, 02/2024 Ejection fraction of 15 to 20%, 06/2024 On diuresis with Bumex, 06/2024 Normal venous Dopplers, 06/2024 NSTEMI Initial troponin of 1600, trending down HEMATURIA Moderate hematuria, 06/2024 CHRONIC KIDNEY DISEASE Stage III 1.8 at presentation Creatinine at discharge from hospital, 06/2024 was 2.2 HYPERTENSION HYPERLIPIDEMIA DIABETES, TOBACCO USE CORE MEASURES Not on guideline directed medical therapy for cardiomyopathy given renal dysfunction OTHER MEDICAL PROBLEMS Anxiety disorder Diabetic neuropathy PLAN 07/04/2024 patient with NSTEMI, CHF exacerbation at presentation. Although type II elevation is possible, given presentation, will need to ensure that he does not have underlying ACS. EKG with non specific changes and no chest pain. Ideally, needs to be on anticoagulation with heparin to help with potential ACS. However, at this time, patient is concerned about increased retinal bleeding with anticoagulation and had not been on antiplatelets or anticoagulants before for the same reason. Although risk of myocardial injury is a concern, troponins are trending down and given risk of visual loss, after extensive discussion with the patient, plan is not to anticoagulate at this time. Will repeat echocardiogram to reassess ejection fraction. Post diuresis, may consider ischemic evaluation as needed. Also, underlying cardiorenal syndrome and therefore, may need dobutamine support for diuresis. Will follow closely 07/05/2024 breathing better, -600 on output, Remains on Bumex 3 times daily, also got a dose of metolazone this morning, potassium is being replaced. Will add a small dose of dobutamine to help with diuresis. Do not titrate and leave at 2.5. Hopefully, this helps his renal function as well. Primary team reached out to ophthalmology on-call and per ophthalmology, may consider anticoagulation if needed/antithrombotics if needed in spite of previous history of vitreal hemorrhage and proliferative retinopathy given risk and benefit. Patient himself would like to stay of antithrombotics if possible. Troponins have trended down and at this time, plan remains to stay off anticoagulation. Will consider coronary angiography prior to discharge depending on renal function and clinical course. Continue diuresis. 07/06/2024 patient is Bumex was decreased to every 12 hours. Attempted to increase dobutamine drip to 5. The patient experienced sinus tachycardia rate of 120 to 130 shortly after. Dobutamine drip was decreased back to 2.5. Creatinine increased to 2.4 today. Continue with Nephrology recommendations Repeat BMP in the AM Avoid any nephrotoxic medications as possible Will discuss coronary angiogram if renal function improves. ; Agree, Bumex was tapered because of worsening renal function. Remains on dobutamine. Having issues with anxiety, doing well. Seen and examined around 8 PM. 07/07/2024 Doing well, ongoing diuresis, issues with anxiety yesterday but has done well. Did receive a dose of Xanax yesterday. Continues to diurese, edema still present. Remains on dobutamine at 2.5. Creatinine today is better at 2.1. Continue current Bumex and dobutamine regimen. Plans remain for eventual cardiac catheterization once renal function improves and diuresis is complete. No plans for anticoagulation as above. 07/08/2024 Has had about 7 L out yesterday continues to diurese well. Remains on dobutamine with mild tachycardia. Potassium is being replaced. lower extremity edema progressively improving. Tentative plan for cardiac catheterization on Wednesday to further evaluate underlying cardiomyopathy. 07/09/2024 Bumex has been transitioned to Lasix. Plan for cardiac catheterization tomorrow. Will try to limit contrast use during procedure as much as possible. No plans for anticoagulation perioperatively given eye issues. Therefore, we will go femoral instead of radial approach. Per discussion with ophthalmology at admission, anticoagulation is okay if necessary however, patient still remains hesitant. Further recommendations on the basis of findings on cardiac catheterization. Only diagnostic planned at this point 07/10/2024 status post cardiac catheterization today showing multivessel coronary artery disease. Mid to distal LAD is a small vessel that fills via collaterals and is totally occluded prox, circumflex with severe disease in the RCA with severe disease as well. Underlying cardiomyopathy increases his overall risk. We will get CV surgery to see patient, however, even though patient may not need long-term antithrombotics after bypass, may need perioperative anticoagulation. This may be a concern in the setting of intra-ocular bleed issues and will need ophthalmology clearance. Appreciate evaluation. Only 10 cc of contrast was used during the procedure, risk of ISHAN is thought to be low 07/11/24 Overall doing well, renal function worse, output is not being monitored, edema is present, but lungs clear, will repeat BMP and consider volume replenishment if needed. eventual plan for impella assisted CABG per CVT surgery. Appreciate. 07/12/24 doing well, renal function better off diuresis, volume status is still ok, concern for shirin-op anticoagulation and eye bleeding, will also need impella asistance for intervention. will discuss with cvt, primary and ophthal. patient may want eye fixed before bypass? 07/13/2024 Creatinine was elevated this morning before, was repeated after dobutamine support and this has improved (more pre-renal). CV surgery is not being immediately considered because of risk of potential bleeding associated with perioperative antithrombotics and previous history of intraocular bleeding. Ophthalmology evaluation either as an inpatient or an outpatient is currently being considered. Will restart a small dose of diuresis. Urine sodium was 55, fena 0.7. 07/14/2024 Renal function continues to improve, has been started on diuresis today. Ophthalmology evaluation yesterday recommended continuing with surgery as needed and anticoagulation is needed but patient at this time, would prefer to get Ifex before considering bypass surgery on anticoagulation. Plan to come off dobutamine and then reassess prior to discharge ATTESTATION I was involved substantially in the care of this patient Number and complexity of problems addressed: 1 acute illness with severe exacerbation Amount and or complexity of data Review of prior external note(s) from each unique source: 2+ Ordering of each unique test : 0 Review of the result(s) of each unique test: 2+ Assessment requiring an independent historian(s): No Independent interpretation of test performed by another MD/QHCP/appropriate source (not separately reported) : No Discussion of management or test interpretation with external MD/QHCP/appropriate source (not separately reported) : No Risk status (cardiac, billing related): moderate Vitals/Labs Vital Signs Date Time Temp Pulse Resp B/P (MAP) Pulse Ox O2 Delivery O2 Flow Rate FiO2 07/14/24 11:00 97.5 10 20 110/75 95 Room Air 07/14/24 07:44 0 21 Laboratory Tests 07/14/24 03:50 Medications Current Medications Aspirin 325 mg ONCE ONCE PO Last administered on 07/04/24at 12:59; Start 07/04/24 at 13:00; Stop 07/04/24 at 13:01; Status DC Heparin Sodium (Porcine) 5,000 unit ONCE SQ Last administered on 07/04/24at 12:59; Start 07/04/24 at 13:00; Stop 07/04/24 at 13:37; Status DC Guaifenesin/ Dextromethorphan 10 ml Q6H PRN PO; Start 07/04/24 at 13:30; Stop 07/14/24 at 15:30; Status DC Bumetanide 1 mg Q8H IVP Last administered on 07/06/24at 05:42; Start 07/04/24 at 13:30; Stop 07/06/24 at 08:38; Status DC Insulin Human Regular INSULIN SLIDING SCAL... ACHS SQ Last administered on 07/14/24at 12:00; Start 07/04/24 at 16:30; Stop 07/14/24 at 15:30; Status DC Magnesium Sulfate 50 ml @ 0 mls/hr PROTOCOL IV Last administered on 07/09/24at 07:01; Start 07/04/24 at 14:00; Stop 07/14/24 at 15:30; Status DC Acetaminophen 500 mg Q6H PRN PO Last administered on 07/06/24at 14:35; Start 07/04/24 at 14:00; Stop 07/14/24 at 15:30; Status DC Ondansetron HCl 4 mg Q6H PRN IVP; Start 07/04/24 at 14:00; Stop 07/14/24 at 15:30; Status DC Ipratropium [place] 0.5 mg Q6H PRN IH; Start 07/04/24 at 14:00; Stop 07/06/24 at 14:21; Status DC Budesonide 0.5 mg BIDRESP IH Last administered on 07/06/24at 06:27; Start 07/04/24 at 18:00; Stop 07/06/24 at 14:21; Status DC Aspirin 81 mg DAILY PO Last administered on 07/14/24at 08:25; Start 07/05/24 at 09:00; Stop 07/14/24 at 15:30; Status DC Nitroglycerin 0.4 mg AD PRN SL; Start 07/04/24 at 14:00; Stop 07/14/24 at 15:30; Status DC Losartan Potassium 25 mg DAILY PO; Start 07/05/24 at 09:00; Stop 07/04/24 at 16:43; Status DC Potassium Chloride 100 ml @ 50 mls/hr AD PRN IV; Start 07/04/24 at 20:30; Stop 07/14/24 at 15:30; Status DC Potassium Chloride 10 meq AD PRN PO Last administered on 07/13/24at 06:01; Start 07/04/24 at 20:30; Stop 07/14/24 at 15:30; Status DC Potassium Chloride 10 meq AD PRN PO; Start 07/04/24 at 20:30; Stop 07/05/24 at 09:02; Status DC Potassium Chloride 40 meq ONCE ONCE PO Last administered on 07/04/24at 20:57; Start 07/04/24 at 21:00; Stop 07/04/24 at 21:01; Status DC Potassium Chloride 100 ml @ 100 mls/hr ONCE ONCE IV; Start 07/05/24 at 00:00; Stop 07/05/24 at 00:59; Status DC Alprazolam 0.25 mg ONCE ONCE PO Last administered on 07/04/24at 23:47; Start 07/04/24 at 23:00; Stop 07/04/24 at 23:01; Status DC Insulin Glargine 10 units DAILY SQ Last administered on 07/14/24at 08:30; Start 07/05/24 at 09:00; Stop 07/14/24 at 15:30; Status DC Metolazone 5 mg ONCE ONCE PO Last administered on 07/05/24at 09:24; Start 07/05/24 at 09:00; Stop 07/05/24 at 09:01; Status DC Potassium Chloride 10 meq AD PRN PO Last administered on 07/11/24at 06:05; Start 07/05/24 at 09:30; Stop 07/14/24 at 15:30; Status DC Atorvastatin Calcium 20 mg HS PO Last administered on 07/13/24at 20:23; Start 07/05/24 at 21:00; Stop 07/14/24 at 15:30; Status DC Dopamine HCl/ Dextrose 250 ml @ 0 mls/hr PROTOCOL IV; Start 07/05/24 at 13:00; Stop 07/05/24 at 13:48; Status DC Dobutamine HCl/ Dextrose 250 ml @ As Directed STK-MED ONCE IV Last administered on 07/05/24at 13:52; Start 07/05/24 at 13:36; Stop 07/05/24 at 13:41; Status DC Dobutamine HCl/ Dextrose 250 ml @ 0 mls/hr PROTOCOL IV; Start 07/05/24 at 14:00; Stop 07/06/24 at 10:18; Status DC Bumetanide 1 mg BID IVP Last administered on 07/09/24at 09:23; Start 07/06/24 at 09:00; Stop 07/09/24 at 11:28; Status DC Dobutamine HCl/ Dextrose 250 ml @ 0 mls/hr PROTOCOL IV; Start 07/06/24 at 10:30; Stop 07/06/24 at 11:33; Status DC Dobutamine HCl/ Dextrose 250 ml @ 0 mls/hr PROTOCOL IV Last administered on 07/13/24at 15:17; Start 07/06/24 at 12:00; Stop 07/14/24 at 15:30; Status DC Lactulose 20 gm BID PRN PO; Start 07/06/24 at 12:00; Stop 07/14/24 at 15:30; Status DC Alprazolam 0.25 mg ONCE ONCE PO Last administered on 07/06/24at 23:06; Start 07/06/24 at 23:00; Stop 07/06/24 at 23:01; Status DC Alprazolam 0.25 mg ONCE ONCE PO Last administered on 07/07/24at 23:42; Start 07/08/24 at 00:00; Stop 07/08/24 at 00:01; Status DC Furosemide 40 mg BID@,17 PO Last administered on 07/11/24at 08:56; Start 07/09/24 at 17:00; Stop 07/11/24 at 18:26; Status DC Lidocaine HCl 20 ml STK-MED ONCE .ROUTE; Start 07/10/24 at 12:44; Stop 07/10/24 at 12:45; Status DC Fentanyl Citrate 100 mcg STK-MED ONCE .ROUTE; Start 07/10/24 at 12:44; Stop 07/10/24 at 12:45; Status DC Midazolam HCl 2 mg STK-MED ONCE .ROUTE; Start 07/10/24 at 12:45; Stop 07/10/24 at 12:45; Status DC Iohexol 35,000 mg STK-MED ONCE IV; Start 07/10/24 at 12:45; Stop 07/10/24 at 12:45; Status DC Nicardipine HCl 25 mg STK-MED ONCE IV; Start 07/10/24 at 12:45; Stop 07/10/24 at 12:45; Status DC Heparin Sodium/ Sodium Chloride 0 ml @ As Directed STK-MED ONCE IV; Start 07/10/24 at 12:45; Stop 07/10/24 at 12:46; Status DC Nitroglycerin 50 mg STK-MED ONCE .ROUTE; Start 07/10/24 at 12:45; Stop 07/10/24 at 12:46; Status DC Alprazolam 0.25 mg ONCE ONCE PO Last administered on 07/11/24at 01:33; Start 07/11/24 at 01:30; Stop 07/11/24 at 01:31; Status DC Alprazolam 0.25 mg NOW ONCE PO Last administered on 07/11/24at 21:59; Start 07/11/24 at 21:30; Stop 07/11/24 at 21:31; Status DC Potassium Chloride 40 meq ONCE ONCE PO; Start 07/12/24 at 08:30; Stop 07/12/24 at 08:31; Status DC Alprazolam 0.25 mg NOW ONCE PO Last administered on 07/12/24at 23:26; Start 07/12/24 at 23:00; Stop 07/12/24 at 23:01; Status DC Latanoprost 1 DROP OU HS HS OU Last administered on 07/13/24at 20:23; Start 07/13/24 at 21:00; Stop 07/14/24 at 15:30; Status DC Alprazolam 0.25 mg ONCE ONCE PO Last administered on 07/13/24at 20:23; Start 07/13/24 at 20:00; Stop 07/13/24 at 20:01; Status DC Furosemide 40 mg DAILY PO Last administered on 07/14/24at 08:25; Start 07/14/24 at 09:00; Stop 07/14/24 at 15:30; Status DC GUSTAVO PRUITT MD Jul 14, 2024 22:33
== END 2024-07-14 15:20 | disposition home or self-care (01) | DRG 280 ==
LOC: EDH 11:43 → EDHIP 11:44 → 2DH 18:40
PROVIDERS: ADMIT Internal Medicine; ATTEND Internal Medicine
PROC: 4A023N7 Measurement of Cardiac Sampling and Pressure, Left Heart, Percutaneous Approach (ICD-10-PCS; principal; 2024-07-10)
PROC: B2111ZZ Fluoroscopy of Multiple Coronary Arteries using Low Osmolar Contrast (ICD-10-PCS; 2024-07-10)
DX: I13.0 Hypertensive heart and chronic kidney disease with heart failure and stage 1 through stage 4 chronic kidney disease, or unspecified chronic kidney disease (principal); I50.43 Acute on chronic combined systolic (congestive) and diastolic (congestive) heart failure; I21.4 Non-ST elevation (NSTEMI) myocardial infarction; J96.01 Acute respiratory failure with hypoxia; N17.9 Acute kidney failure, unspecified; E87.3 Alkalosis; I25.10 Atherosclerotic heart disease of native coronary artery without angina pectoris; E03.9 Hypothyroidism, unspecified; E11.22 Type 2 diabetes mellitus with diabetic chronic kidney disease; E11.319 Type 2 diabetes mellitus with unspecified diabetic retinopathy without macular edema; E11.40 Type 2 diabetes mellitus with diabetic neuropathy, unspecified; F41.9 Anxiety disorder, unspecified; I42.9 Cardiomyopathy, unspecified; F32.A Depression, unspecified; N18.30 Chronic kidney disease, stage 3 unspecified; H35.033 Hypertensive retinopathy, bilateral; E78.5 Hyperlipidemia, unspecified; E11.3593 Type 2 diabetes mellitus with proliferative diabetic retinopathy without macular edema, bilateral; Z87.891 Personal history of nicotine dependence; Z79.4 Long term (current) use of insulin; Z79.899 Other long term (current) drug therapy; Z90.49 Acquired absence of other specified parts of digestive tract; Z91.148 Patient's other noncompliance with medication regimen for other reason; Z91.199 Patient's noncompliance with other medical treatment and regimen due to unspecified reason
CPT/HCPCS: 36415; 36600; 71045; 76770; 80048; 80053; 80076; 80305; 81001; 82435; 82550; 82570; 82803; 82947; 82948; 83036; 83605; 83735; 83880; 84100; 84132; 84145; 84156; 84295; 84300; 84439; 84443; 84481; 84484; 84540; 85018; 85025; 85027; 85610; 85730; 86140; 87635; 87804; 93005; 93306; 93356; 93458; 93880; 93970; 94010; 94640; 94664; 96365; 96375; 99156; 99157; 99291; C1894; G0378; J1250; J1265; J1644; J1815; J2250; J3010; J3475; J3480; J3490; Q9967; Q9965

== ENCOUNTER 2024-07-24 18:15 | Inpatient (IN) | payer BC, OTHER ==
[~2024-07-24] VITALS: Ht 172.7 cm; Wt 87.1 kg
[~2024-07-24 18:15] MED LIST: AEC81 PO; ATOR20TA65 PO; FAMO20TA8 PO; LATA2.5D15 OU; LEVO50CA4 PO; LOSA25TA41 PO; MELO-108 PO; METO-391 PO; NITR0.4T50 SL
--- NOTE | 2024-07-24 18:40 | EKG ---
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: [id number] : 1960 Requested By: CHARLETTE CULLEN Order Number: [id number] Reading MD: Matt Pearl Measurements Intervals [place] Rate: 106 P: 61 OK: 160 QRS: -40 QRSD: 102 T: 118 QT: 347 QTc: 460 Interpretive Statements Sinus tachycardia Probable left atrial enlargement Left axis deviation Nonspecific T abnormalities, lateral leads Compared to ECG 07/04/2024 12:02:49 Left-axis deviation now present Sinus rhythm no longer present T-wave abnormality still present Electronically Signed On 07-24-2024 20:04:58 [employer]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
[2024-07-24 19:03] LABS: BASOPHILS # (AUTO) 0.03 K/uL (0.00-0.20); BASOPHILS % (AUTO) 0.5 % (0.0-5.0); EOSINOPHILS # (AUTO) 0.18 K/uL (0.00-0.70); EOSINOPHILS % (AUTO) 2.9 % (0.0-8.0); HEMATOCRIT 36.5 % (42-54); LYMPHOCYTES # (AUTO) 0.9 K/uL (1.0-4.8); LYMPHOCYTES % (AUTO) 13.7 % (21.0-51.0); MEAN CORPUSCULAR HEMOGLOBIN 26.7 pg (27.0-33.0); MEAN CORPUSCULAR HGB CONC 31.5 g/dL (32.0-36.0); MEAN CORPUSCULAR VOLUME 84.9 fL (79-99); MONOCYTES % (AUTO) 15.3 % (3.0-13.0); NEUTROPHILS # (AUTO) 4.1 K/uL (1.8-7.7); PLATELET COUNT (AUTO) 254 K/uL (130-400); RED CELL DISTRIBUTION WIDTH 17.1 % (11.0-15.5); WHITE BLOOD COUNT (AUTO) 6.2 K/uL (4.8-10.8)
[2024-07-24 19:32] LABS: CREATININE 2.3 mg/dL (0.5-1.3); POTASSIUM 4.4 mmol/L (3.5-5.1)
[2024-07-24 20:38] LABS: INR 1.05 (0.85-1.15); PROTHROMBIN TIME 11.3 SEC (9.6-11.6)
[2024-07-24 20:39] LABS: PARTIAL THROMBOPLASTIN TIME 26.1 SEC (26.3-35.5)
--- NOTE | 2024-07-24 20:45 | NUR ---
ASSUMED PT CARE AT THIS TIME
[2024-07-24] MEDS: metoCLOPRAmide 10 MG/2 ML VIAL IVP ONE (21:10)
[2024-07-24] MEDS: PANTOPrazole 40 MG/VIAL IVP ONE (21:10)
[2024-07-24] MEDS: ASPIRIN 325MG TAB PO ONE (21:11)
[2024-07-24] MEDS: furoSEMIDE 40MG VIAL IV ONE (21:11)
[2024-07-24 21:46] LABS: APPEARANCE,URINE CLEAR (CLEAR); BILIRUBIN,URINE NEGATIVE (NEGATIVE); COLOR,URINE LIGHT-YELLOW (YELLOW); GLUCOSE, URINE (UA) 500 mg/dL (NEGATIVE); KETONES,URINE NEGATIVE (NEGATIVE); LEUKOCYTE ESTERASE ,URINE NEGATIVE Leu/uL (NEGATIVE); NITRATE,URINE NEGATIVE (NEGATIVE); OCCULT BLOOD,URINE MODERATE (NEGATIVE); PROTEIN,URINE 200 mg/dL (NEGATIVE); UROBILINOGEN,URINE 0.2 mg/dL (0.2-1.0)
[2024-07-24 21:49] LABS: ADD UA MICROSCOPIC YES
[2024-07-24 21:50] LABS: WBC,URINE 0-1 /HPF (0-1)
--- NOTE | 2024-07-24 22:05 | ERN ---
ED Note History of Present Illness Stated Complaint: SWOLLEN FEET AND LEGS, SOB Chief Complaint: LOWER EXTREMITY EDEMA Time Seen by MD: 18:20 Time Seen by Midlevel: 18:20 Dictation: The patient is a 64-year-old male with a history of CKD, diabetes, hypertension, heart failure who presents to the emergency department with complaints of lower extremity swelling, shortness of breath, hiccups onset four days ago. Patient denies any fevers, chest pain but reports some discomfort with the hiccups come. Patient reports he was seen here last week but reports he ran out of his Lasix and has not been able to refill. Allergies: Coded Allergies: No Known Drug Allergies (Unverified Allergy, Unknown, 07/04/24) Home Meds Active Scripts Nitroglycerin (Nitroglycerin) 0.4 Mg Tab.subl, 1 TAB SL AD for chest pain, #25 TAB 1 Refill 1st sign of attack; may repeat every 5 mins; if pain persists after 3 in 15 min, medical attention is recommended Prov:GARRY GUERRA MD 07/14/24 Latanoprost (Xalatan) 0.005 % Drops, 0 DROP OU HS for 30 Days, #1 DROP 1 Refill as directed Prov:GARRY GUERRA MD 07/14/24 Reported Medications Levothyroxine Sodium (Levothyroxine) 50 Mcg Capsule, 1 CAP PO DAILY for 30 Days, #30 CAP 0 Refills 07/04/24 Metoprolol Succinate (Metoprolol Succinate) 50 Mg Tab.er.24h, 1 TAB PO DAILY for 30 Days, #30 TAB 0 Refills 07/04/24 Meloxicam (Meloxicam) 15 Mg Tablet, 15 MG PO DAILY, TAB 07/04/24 Losartan Potassium (Losartan Potassium) 25 Mg Tablet, 1 TAB PO DAILY for 30 Days, #30 TAB 0 Refills 07/04/24 Famotidine (Famotidine) 20 Mg Tablet, 20 MG PO DAILY, TAB 07/04/24 Atorvastatin Calcium (Atorvastatin Calcium) 20 Mg Tablet, 20 MG PO HS, TAB 07/04/24 Aspirin (ASPIRIN 81 MG ECTAB) 81 Mg Ectab, 81 MG PO DAILY, TAB.EC 07/04/24 Past Medical History Past Medical History: Anxiety, CHF, Depression, Diabetes-Type II, Heart Disease, Hypertension, Hypothyroid, [place], Renal Disese, Stroke Surgical History: Appendectomy RN Note Reviewed/Agreed w/PFSH: Yes Review of System Dictation Constitutional: Negative for fever,chills, and weight loss Eyes: Negative for injury, pain,redness, and discharge ENT: Negative for injury,pain or swelling Cardiovascular: Negative for chest pain, palpitations positive for edema Respiratory: Negative for cough, and wheezing, positive for shortness of breath Abdomen/GI: Negative for abdominal pain, nausea, vomiting, diarrhea, and constipation Back: Negative for injury and pain : Negative for injury, bleeding and discharge MS/Extremity: Negative for injury and deformity Skin: Negative for rash, and discoloration Neuro: Negative for headache, weakness, numbness, tingling, and seizure Psych: Negative for suicide ideation, homicidal ideation, and hallucinations Initial Vital Sign VS Vital Signs Date Time Temp Pulse Resp B/P (MAP) Pulse Ox O2 Delivery O2 Flow Rate FiO2 07/24/24 18:25 97.9 107 18 121/87 97 Room Air 0 07/24/24 20:45 21 Physical Exam Dictation Vital Signs reviewed General Appearance: Alert, oriented x 3, mildly distress, well developed, nourished. Head and Face: non-traumatic. Eyes: PERRL, pink conjunctivas, eyelid no trauma, anterior chamber with arcus senilis. Ears: Pinnas intact and no signs of trauma or erythema ear canals clear and no discharge TM no erythema Nose: No discharge, no bleeding. Oropharynx: Mouth normal, tongue pink. pharynx clear,no erythema, tonsils no exudates, no abscesses noted, mucous membrane moist Neck: Supple, non-tender, no thyromegaly, no masses, no JVD, no bruits Breast:Deferred Chest:No tenderness, no crepitus, no paradoxical movement, no retractions Lungs:Clear, well-ventilated, symmetric, no rales, no wheezing, no rhonchi, no stridor, good breath sounds bilaterally Heart: Regular rate, regular rhythm, no murmur, no gallops Vascular: 3+ bilateral lower extremity edema Abdomen: Soft, positive bowel sounds, nondistended, no guarding, nontender, no rebound, no masses no hepatomegaly, no splenomegaly, no Holland's sign, no hernias. Rectal: Deferred Genital: Deferred Neurological: Normal speech, motor function intact, sensory function intact Musculoskeletal: Neck nontender, full range of motion, back nontender, full range of motion, Extremities: nontender, full range of motion Skin: Color pink, dry, no turgor, no rash, no lacerations, no abrasions, no contusions. Lymphatic: Deferred Results (Laboratory/Radiology) Laboratory/Radiology Laboratory Tests Test 07/24/24 18:43 07/24/24 20:41 07/24/24 21:07 07/24/24 21:28 White Blood Count 6.2 K/uL (4.8-10.8) Red Blood Count 4.30 MIL/uL (4.50-6.20) L Hemoglobin 11.5 g/dL (14.0-18.0) L Hematocrit 36.5 % (42-54) L Mean Corpuscular Volume 84.9 fL (79-99) Mean Corpuscular Hemoglobin 26.7 pg (27.0-33.0) L Mean Corpuscular Hemoglobin Concent 31.5 g/dL (32.0-36.0) L Red Cell Distribution Width 17.1 % (11.0-15.5) H Platelet Count 254 K/uL (130-400) Mean Platelet Volume 10.3 fL (7.5-10.5) Immature Granulocyte % (Auto) 1.6 % (0-1) H Neutrophils (%) (Auto) 66.0 % (40.0-77.0) Lymphocytes (%) (Auto) 13.7 % (21.0-51.0) L Monocytes (%) (Auto) 15.3 % (3.0-13.0) H Eosinophils (%) (Auto) 2.9 % (0.0-8.0) Basophils (%) (Auto) 0.5 % (0.0-5.0) Neutrophils # (Auto) 4.1 K/uL (1.8-7.7) Lymphocytes # (Auto) 0.9 K/uL (1.0-4.8) L Monocytes # (Auto) 1.0 K/uL (0.1-1.0) Eosinophils # (Auto) 0.18 K/uL (0.00-0.70) Basophils # (Auto) 0.03 K/uL (0.00-0.20) Absolute Immature Granulocyte (auto 0.10 K/uL (0-1) Nucleated Red Blood Cells 0.0 % (0.0-0.19) White Cell Morphology Comment See comments Prothrombin Time 11.3 SEC (9.6-11.6) Prothromb Time International Ratio 1.05 (0.85-1.15) Activated Partial Thromboplast Time 26.1 SEC (26.3-35.5) L Sodium Level 133 mmol/L (136-145) L Potassium Level 4.4 mmol/L (3.5-5.1) Chloride Level 99 mmol/L (101-111) L Carbon Dioxide Level 25 mmol/L (21-32) Blood Urea Nitrogen 53 mg/dL (7-18) H Creatinine 2.3 mg/dL (0.5-1.3) H Glomerular Filtration Rate Calc 31 mL/min (>90) Random Glucose 332 mg/dL (70-105) H Total Calcium 8.4 mg/dL (8.5-10.1) L Magnesium Level 2.30 mg/dL (1.80-2.40) Troponin I High Sensitivity 202 ng/L (4-75) *H 1991 ng/L (4-75) *H B-Type Natriuretic Peptide 2970 pg/mL (0-100) H Whole Blood Glucose 282 MG/DL (70-110) H Urine Color LIGHT-YELLOW (YELLOW) Urine Appearance CLEAR (CLEAR) Urine pH 6.0 (5.0-8.0) Urine Specific [place] 1.016 (1.001-1.031) Urine Protein 200 mg/dL (NEGATIVE) H Urine Glucose (UA) 500 mg/dL (NEGATIVE) H Urine Ketones NEGATIVE mg/dL (NEGATIVE) Urine Occult Blood MODERATE (NEGATIVE) H Urine Nitrate NEGATIVE (NEGATIVE) Urine Bilirubin NEGATIVE mg/dL (NEGATIVE) Urine Urobilinogen 0.2 mg/dL (0.2-1.0) Urine Leukocyte Esterase NEGATIVE Anabelle/uL Urine RBC 6-10 /HPF (0-1) H Urine WBC 0-1 /HPF (0-1) Urine Bacteria None /HPF (None Seen) REASON: SOB ORDERING PHYSICIAN: CHARLETTE CULLEN MD PROCEDURE: CXR1VW - CHEST 1VW CHEST 1VW HISTORY: Shortness of breath COMPARISON: 07/08/2024 FINDINGS: A frontal projection of the chest was obtained. Mild bilateral pulmonary infiltrates are seen may be related to mild pulmonary vascular congestion with possible superimposed pneumonitis. The heart is borderline enlarged. Degenerative changes are seen. Tortuosity of aorta is seen. IMPRESSION: 1. Mild bilateral pulmonary infiltrates are seen may be related to mild pulmonary vascular congestion with possible superimposed pneumonitis. Labs Reviewed?: Yes EKG: (+) rhythm (Sinus tachycardia), (+) NM (160) EKG Comment: EKG 07/24/2024 1835 ventricular rate 106, sinus tachycardia, nonspecific T-wave abnormalities, regular rate and rhythm, no STEMI ED Course ED Course Orders Procedure Category Date Status Time Cbc With Differential LAB 07/24/24 Complete 18:29 Basic Metabolic Panel LAB 07/24/24 Complete 18:29 Troponin I High LAB 07/24/24 Complete Sensitivity 18:29 12 Lead Ekg Tracing- EKG 07/24/24 Resulted Technical 18:29 Chest 1vw RAD 07/24/24 Resulted 18:29 Urinalysis Profile LAB 07/24/24 Complete 18:29 B-Type Natriuretic LAB 07/24/24 Complete Peptide 18:52 Metoclopramide 10 PHA 07/24/24 Complete Mg/2 Ml Vial (Reglan 1 19:00 Pantoprazole 40mg Inj PHA 07/24/24 Complete (Protonix 40mg Inj 19:00 12 Lead Ekg Tracing- EKG 07/24/24 Logged Technical 18:52 Aspirin 325mg Tab PHA 07/24/24 Complete (Aspirin 325mg Tab) 19:00 Furosemide 40mg Vial PHA 07/24/24 Complete (Lasix 40mg Vial) 19:00 Magnesium LAB 07/24/24 Complete 18:52 Troponin I High LAB 07/24/24 Complete Sensitivity 19:51 Insulin Regular, PHA 07/24/24 Complete Human 3ml (Humulin R 20:00 Pt And Ptt LAB 07/24/24 Complete 19:52 Admit Orders ADM 07/24/24 Transmitted 21:57 Edm Admit Bridge Order ADM 07/24/24 Transmitted 21:57 Vital Signs(Adult CPOE 07/24/24 Transmitted Hospitalist) 22:59 Oxygen By Nc/Pulse Ox CPOE 07/24/24 Transmitted 22:59 Daily Weights CPOE 07/24/24 Transmitted 22:59 I&O Q Shift CPOE 07/24/24 Transmitted 22:59 Ondansetron 4mg Inj PHA 07/24/24 In Process (Zofran 4mg Inj) 23:00 Zolpidem Tartrate 5 PHA 07/24/24 In Process Mg Tab (Ambien) 23:00 Lactulose 20 Gm/30 Ml PHA 07/24/24 In Process Udcup (Constulose 23:00 Nitroglycerin 0.4mg PHA 07/24/24 In Process Sl Tab (Nitrostat) 23:00 Pulse Ox(Continuous) RT 07/24/24 Transmitted 22:59 Nurse To Enter Home CPOE 07/24/24 Transmitted Medication 22:59 Admit Orders ADM 07/24/24 Transmitted 22:59 Condition: CPOE 07/24/24 Transmitted 22:59 Telemetry Monitoring CPOE 07/24/24 Transmitted 22:59 Activity: Bed Rest CPOE 07/24/24 Transmitted 22:59 Heart Healthy Diet DIET 07/25/24 Transmitted Breakfast Famotidine 20mg Tab PHA 07/25/24 In Process (Pepcid 20mg Tab) 09:00 Hydralazine 20mg Inj PHA 07/24/24 In Process (Apresoline 20mg In 23:00 Cardiology Consult CONPHYSVC 07/24/24 Transmitted 22:59 Troponin I High LAB 07/24/24 In Process Sensitivity 22:59 Troponin I High LAB 07/25/24 Verified Sensitivity 04:59 Troponin I High LAB 07/25/24 Verified Sensitivity 10:59 B-Type Natriuretic LAB 07/25/24 Verified Peptide 04:00 Cbc With Differential LAB 07/25/24 Verified 04:00 Comprehensive LAB 07/25/24 Verified Metabolic Panel 04:00 Magnesium LAB 07/25/24 Verified 04:00 Daily Weights CPOE 07/24/24 Transmitted 22:59 Strict I&O CPOE 07/24/24 Transmitted 22:59 Initiate DANY 07/24/24 In Process Hyperglycemia Protoco 22:59 Insulin Regular, PHA 07/25/24 In Process Human 3ml (Humulin R 07:30 Initiate Hypoglycemia DANY 07/24/24 In Process Protocol 22:59 Dextrose 50%-Water PHA 07/24/24 In Process (D50w) 23:00 Glucagon 1mg Kit PHA 07/24/24 In Process (Glucagon 1mg Kit) 23:00 Magnesium 2gm Premix PHA 07/24/24 In Process 50ml (Magnesium 2gm 23:00 Initiate Po DANY 07/24/24 In Process Hypokalemia Protoc 22:59 Potassium Chloride PHA 07/24/24 In Process 20meq/100ml ([place] 23:00 Potassium Chl 10% PHA 07/24/24 In Process Elixir 20meq (Kcl 10% 23:00 Potassium Chloride PHA 07/24/24 In Process 20meq Er (K-Dur/Klor- 23:00 Notify Physician If CPOE 07/24/24 Transmitted There Is 22:59 Notify Md On The Next CPOE 07/24/24 Transmitted 22:59 Notify Md On The CPOE 07/24/24 Transmitted Next(Cont.) 22:59 Aspirin 81mg Ec Tab PHA 07/25/24 In Process (Aspirin 81mg Ec Tab 09:00 Atorvastatin 20mg PHA 07/25/24 In Process (Lipitor 20mg) 21:00 Losartan 25 Mg Tablet PHA 07/25/24 In Process (Cozaar 25mg Tab) 09:00 Levothyroxine 50 Mcg PHA 07/25/24 In Process Tablet (Synthroid 5 06:30 Metoprolol Succinate PHA 07/25/24 In Process (Toprol Xl) 09:00 Thyroid Stimulating LAB 07/25/24 Verified Hormone 04:00 Lipid Panel LAB 07/25/24 Verified 04:00 Hemoglobin A1c LAB 07/25/24 Verified 04:00 Current Medications Medications (Trade) Dose Ordered Sig/Anjelica Route PRN Reason Start Time Stop Time Status Last Admin Dose Admin Aspirin (Aspirin 325mg Tab) 325 mg ONCE ONCE PO 07/24/24 19:00 07/24/24 19:01 DC 07/24/24 21:11 Furosemide (LASix 40MG VIAL) 40 mg ONCE ONCE IV 07/24/24 19:00 07/24/24 19:01 DC 07/24/24 21:11 Insulin Human Regular (humuLIN R 100 UNIT/ML 3ML) 5 unit ONCE ONCE IV 07/24/24 20:00 07/24/24 20:01 DC 07/24/24 22:31 Metoclopramide HCl (regLAN 10MG IV) 10 mg ONCE ONCE IVP 07/24/24 19:00 07/24/24 19:01 DC 07/24/24 21:10 Pantoprazole Sodium (PROTonix 40MG INJ) 40 mg ONCE ONCE IVP 07/24/24 19:00 07/24/24 19:01 DC 07/24/24 21:10 Vital Signs Date Time Temp Pulse Resp B/P (MAP) Pulse Ox O2 Delivery O2 Flow Rate FiO2 07/24/24 21:18 98.2 107 16 114/75 100 Nasal Cannula* 2 28 07/24/24 20:45 108 22 118/70 100 Room Air* 0 21 07/24/24 18:25 97.9 107 18 121/87 97 Room Air 0 HEART Score Response (Comments) Value History: Moderate suspicion (+1) 1 EKG: Repolarization changes 1 Age: 45-65yrs (+1) 1 Risk Factors: 3+ risk factors (+2) 2 Initial Troponin: >3x Normal Limit (+2) 2 Total 7 Medical Decision Making [facility] MDM: The patient is a 64-year-old male with a history of CKD, diabetes, hypertension, heart failure who presents to the emergency department with complaints of lower extremity swelling, shortness of breath, hiccups onset four days ago. Patient denies any fevers, chest pain but reports some discomfort with the hiccups come. Patient reports he was seen here last week but reports he ran out of his Lasix and has not been able to refill. CBC showed no leukocytosis, mild normocytic anemia, normal platelets, chemistry showed elevated blood glucose, a gap of nine, GFR of 31, hyponatremia, hypochloremia, elevated BNP, patient received Lasix, elevated troponins although trending down. Patient with no chest pain. Previous troponins were elevated as well. 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 Unable to anticoagulate patient due to history of intra-ocular bleeding. 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 On previous admission patient was not anticoagulated as well. Patient will be admitted for further management. Differential diagnosis: ACS, CHF exacerbation, fluid overload, electrolyte imbalance, renal failure, pneumonia, pneumothorax Comorbidities: CAD, CKD, diabetes, CHF Tests considered and not ordered secondary to shared decision making include: none Previous outside records reviewed: none Risk of complication and/or morbidity or mortality of patient management: The patient meets criteria for admission. Need for emergency major/minor surgery: No There are no social concerns with this patient. I independently interpreted the tests I ordered (labs, urinalysis, etc.). I discussed the case with the hospitalist for admission. Julianna JOLYNN who accepts admission. I discussed the case with the following specialists: none. Historian: pateint. I independently interpreted imaging studies and EKGs that I ordered (US, CT, XR, EKG, etc.). External chart review: none. Medical management and examination interpretation discussions were had by me with other qualified healthcare professionals as indicated for the patient's care. Critical Care Note Critical Time: other (36) Comment(s) Total critical care time was 36 minutes. Excluding time for procedures. Management of critically ill patient with concern for acute decompensation. Management included interpretation of laboratory values and imaging, hemodynam ics, time for consultation with consultants and admitting physician. DX & DISP Disposition: Inpatient Decision to Admit Date: Jul 24, 2024 Decision to Admit Time: 21:48 Departure Impression: Primary Impression: CHF exacerbation Additional Impressions: NSTEMI (non-ST elevated myocardial infarction), Uncontrolled diabetes mellitus with hyperglycemia, Hyponatremia, Hypochloremia, CKD (chronic kidney disease), Anemia Condition: Stable Referrals: PEDRO LUIS MARSHALL (PCP) I have reviewed the case, and I agree with, Diagnosis and Plan ALLYSSA BOLDEN Jul 24, 2024 22:05
[2024-07-24] MEDS: INSULIN humuLIN R 100 UNIT/ML 3ML IV ONE (22:31)
--- NOTE | 2024-07-24 22:38 | HMCIMG ---
CHEST 1VW HISTORY: Shortness of breath COMPARISON: 07/08/2024 FINDINGS: A frontal projection of the chest was obtained. Mild bilateral pulmonary infiltrates are seen may be related to mild pulmonary vascular congestion with possible superimposed pneumonitis. The heart is borderline enlarged. Degenerative changes are seen. Tortuosity of aorta is seen. IMPRESSION: 1. Mild bilateral pulmonary infiltrates are seen may be related to mild pulmonary vascular congestion with possible superimposed pneumonitis.
--- NOTE | 2024-07-24 22:50 | HP ---
[facility] HISTORY [facility] PH[facility] Date of Service: Jul 24, 2024 Time of Service: 22:50 PCP:Keo Santana HISTORY OF PRESENT ILLNESS: This is a 64-year-old male,he is inhouse arrest with left ankle monitory with past medical history of CKD, diabetes, hypertension, congestive heart failure with ischemic cardiomyopathy, hyperlipidemia, hypothyroidism and multivessel coronary artery disease who presents to the ED for complaints of lower extremity swelling, shortness of breath, chest soreness started for the past four days. Patient reports she was admitted last July 04, 2024 for a diagnosis of CHF and non-STEMI and patient underwent a left heart catheterization where he was found to have multivessel coronary artery disease and at the time a recommendation for surgical revascularization was offered to him and he deferred because he wants to be seen by an opthalmologist due to his retinal bleeding which he was so concerned of losing his eyesight and he was discharged home he said on 07/14/2024.As per patient since he was sent home he has not taken any prescribed meds x 2 weeks because he run out and was not able to refill and he started noticing his bilateral lower extremities swelled up for the last 4 days and he started having frequent hiccups and because of the hiccu ps he said it causes him to be short of breath and having chest soreness. Seen and examined patient in the ED awake,alert and coherent,appears comfortable.Patient denies chills,fever,cough,palpitation ,abdominal pain,nausea and vomiting. Latest vital signs temperature 98.2, heart rate 107, blood pressure 114/75 saturation 100% on 2 L nasal cannula. Labs: Hemoglobin 11.5, hematocrit 36.5 platelet count 254. Sodium 133, chloride 99, BUN 53, creatinine 2.3, GFR 31, glucose 332, total calcium 8.4 troponin 2020 to 1990 to 8 BNP 2970 . ECG result revealed sinus tachycardia heart rate 106 nonspecific T-wave abnormalities. chest x-ray result revealed mild bilateral pulmonary infiltrates are seen may be related to mild pulmonary vascular congestion with possible superimposed pneumonitis. While in the ER patient received insulin 5 units IV, Lasix 40 mg IV, aspirin 325 mg p.o., Protonix 40 mg IV Reglan 10 mg IV. Invas Tech was consulted and agreed to evaluate the patient. We will admit patient for further medical management. REVIEW OF SYSTEMS CONSTITUTIONAL: Denies fevers, chills, or night sweats. No unintentional weight loss reported. NEUROLOGICAL: Denies headache, amaurosis fugax, motor weakness, sensory deficit, vertigo/spinning sensation, gait abnormalities, or tremors. ENT: No hearing loss, otalgia, otorrhea, rhinitis, rhinorrhea, hoarseness, or sore throat. CARDIOVASCULAR: Hiccups associated with chest soreness Denies any exertional angina, dyspnea on exertion, orthopnea, paroxysmal nocturnal dyspnea, palp itations, life-threatening arrhythmias, claudication. PULMONARY: Hiccups associated with Shortness of breath Denies any shortness of breath, cough, phlegm/sputum, hemoptysis, pleuritic chest pain. SLEEP: Denies morning headaches, daytime somnolence or napping. Denies difficulty falling asleep, staying asleep, waking from sleep. Denies knowledge of snoring. GASTROINTESTINAL: Denies any type of dysphagia to either liquids or solids. Denies nausea, vomiting, pyrosis, early satiety, abdominal pain, diarrhea, constipation, or changes in stool consistency or caliber. Denies coffee-ground emesis, hematemesis, hematochezia, or melanotic stools. GENITOURINARY: Denies frequency, urgency, nocturia, hematuria or incontinence (Storage/Irritative symptoms.) Low urinary stream, straining to void, urinary intermittency or hesitancy, splitting of the voiding stream, terminal dribbling. ENDOCRINOLOGIC: Denies polyuria, polydipsia, polyphagia or heat/cold intolerances. HEMATOLOGIC: Denies thrombophilia/previous clots, or coagulopathy/bleeding disorders. ONCOLOGIC: Denies personal history of malignancy. DERMATOLOGIC: Denies rashes or pruritus. PSYCHIATRIC: Denies any suicidal or homicidal ideation. Denies hallucinations. PAST MEDICAL HISTORY: [ Diabetes type 2, hypertension, hyperlipidemia, diabetic retinopathy and neuropathy, chronic renal disease stage III, advanced heart failure with ischemic cardiomyopathy wean to 20% with previous stress test which revealed no ischemia or infarction pattern, proliferative retinopathy of bilateral eyes with bilateral vitreous hemorrhage and bilateral cataracts, legally blind for several months ] PAST SURGICAL HISTORY: [ Appendectomy 2018 ] PAST SOCIAL HISTORY: [ Former smoker and social drinker, denies recreational drug use independent with ADLs patient is currently is an in house arrest with left ankle monitor ] FAMILY HISTORY: [ Noncontributory ] Coded Allergies: No Known Drug Allergies (Unverified Allergy, Unknown, 07/04/24) PHYSICAL EXAM GENERAL APPEARANCE: The patient is awake, alert, and oriented, in no acute cardiopulmonary distress. NEUROLOGICAL: Cranial nerves II-XII grossly intact. Motor is 5/5 in bilateral upper and lower extremities proximal to distal. No sensory deficits. HEENT: Face is symmetric. Pupils are equal and reactive. Extraocular movements are intact. NECK: Supple. No JVD. No thyromegaly. No submental, submandibular, pre- /postauricular, occipital or supraclavicular lymphadenopathy. CHEST: Normal chest expansion. No Telemetry. LUNGS: Absence of any rales, rhonchi or any wheezing. CARDIOVASCULAR: Regular. S1 and S2 normal. No appreciable rubs, murmurs or gallops. ABDOMEN: Soft, nontender, and nondistended. There is no rebound, voluntary guarding, or rigidity. : Deferred. No Guillermo. EXTREMITIES: 2+ edema to bilateral lower extremities SKIN: No skin breakdown. Vital Sign (Last 24 Hours) 07/24/24 21:18 Temp 98.2 Pulse 107 Resp 16 B/P (MAP) 114/75 Pulse Ox 100 O2 Delivery Nasal Cannula* O2 Flow Rate 2 FiO2 28 LABS: Laboratory: Test 07/24/24 21:28 07/24/24 21:07 07/24/24 20:41 07/24/24 18:43 Range/Units Urine Color LIGHT-YELLOW YELLOW Urine Appearance CLEAR CLEAR Urine pH 6.0 5.0-8.0 Urine Specific [place] 1.016 1.001-1.031 Urine Protein 200 H NEGATIVE mg/dL Urine Glucose (UA) 500 H NEGATIVE mg/dL Urine Ketones NEGATIVE NEGATIVE mg/dL Urine Occult Blood MODERATE H NEGATIVE Urine Nitrate NEGATIVE NEGATIVE Urine Bilirubin NEGATIVE NEGATIVE mg/dL Urine Urobilinogen 0.2 0.2-1.0 mg/dL Urine Leukocyte Esterase NEGATIVE NEGATIVE Anabelle/uL Urine RBC 6-10 H 0-1 /HPF Urine WBC 0-1 0-1 /HPF Urine Bacteria None None Seen /HPF Whole Blood Glucose 282 H 70-110 MG/DL Troponin I High Sensitivity 1990 *H 4-75 ng/L White Blood Count 6.2 4.8-10.8 K/uL Red Blood Count 4.30 L 4.50-6.20 MIL/uL Hemoglobin 11.5 L 14.0-18.0 g/dL Hematocrit 36.5 L 42-54 % Mean Corpuscular Volume 84.9 79-99 fL Mean Corpuscular Hemoglobin 26.7 L 27.0-33.0 pg Mean Corpuscular Hemoglobin Concent 31.5 L 32.0-36.0 g/dL Red Cell Distribution Width 17.1 H 11.0-15.5 % Platelet Count 254 130-400 K/uL Mean Platelet Volume 10.3 7.5-10.5 fL Immature Granulocyte % (Auto) 1.6 H 0-1 % Neutrophils (%) (Auto) 66.0 40.0-77.0 % Lymphocytes (%) (Auto) 13.7 L 21.0-51.0 % Monocytes (%) (Auto) 15.3 H 3.0-13.0 % Eosinophils (%) (Auto) 2.9 0.0-8.0 % Basophils (%) (Auto) 0.5 0.0-5.0 % Neutrophils # (Auto) 4.1 1.8-7.7 K/uL Lymphocytes # (Auto) 0.9 L 1.0-4.8 K/uL Monocytes # (Auto) 1.0 0.1-1.0 K/uL Eosinophils # (Auto) 0.18 0.00-0.70 K/uL Basophils # (Auto) 0.03 0.00-0.20 K/uL Absolute Immature Granulocyte (auto 0.10 0-1 K/uL Nucleated Red Blood Cells 0.0 0.0-0.19 % White Cell Morphology Comment See comments Prothrombin Time 11.3 9.6-11.6 SEC Prothromb Time International Ratio 1.05 0.85-1.15 Activated Partial Thromboplast Time 26.1 L 26.3-35.5 SEC Sodium Level 133 L 136-145 mmol/L Potassium Level 4.4 3.5-5.1 mmol/L Chloride Level 99 L 101-111 mmol/L Carbon Dioxide Level 25 21-32 mmol/L Blood Urea Nitrogen 53 H 7-18 mg/dL Creatinine 2.3 H 0.5-1.3 mg/dL Glomerular Filtration Rate Calc 31 >90 mL/min Random Glucose 332 H 70-105 mg/dL Total Calcium 8.4 L 8.5-10.1 mg/dL Magnesium Level 2.30 1.80-2.40 mg/dL B-Type Natriuretic Peptide 2970 H 0-100 pg/mL DIAGNOSTICS / RADIOLOGY: [ ] ASSESSMENT: CHF exacerbation with ischemic cardiomyopathy POA POA Non STEMI POA Hyperglycemia secondary to uncontrolled diabetes POA Pseudohyponatremia due to hyperglycemia POA Chronic kidney disease POA Anemia due to CKD POA Multivessel coronary artery disease POA Hypertension POA Hyperlipidemia POA Recent bilateral vitreous hemorrhage POA Diabetic retinopathy and neuropathy POA PLAN: We will admit patient in PCCU We will start on heart healthy diet We will start patient on aspirin 81 mg p.o. per home dose We will start patient on atorvastatin 20 mg p.o. per home dose We will start patient on levothyroxine 50 mcg p.o. daily per home dose We will start patient on metoprolol 50 mg p.o. daily per home dose We will start patient on Lasix 20 mg IV q.12 We will request daily weight and strict I&O per nursing We will replace electrolytes as needed per protocol We will start on insulin sliding scale AC & HS with hypoglycemia protocol We will add prn medication for fever,pain,nausea and vomiting We will reconcile home meds once medlist available We will trend troponin q.6 hours x3 We will seek Cardiology consultation We will request labs in am Further orders to follow depending on above results Case discussed with attending physician and came up with above treatment and plan of care. ADVANCED CARE PLANNING 1. Which of the following were discussed? Hospice Care - No Therapeutic options - Yes Advance Directives - No Other discussions - 2. Discussed with who? Patient 3. Voluntary nature of this service was explained to the patient? Yes 4. Amount of time spent - __22 5. Reviewed by Physician? (if this service was performed by NPP) Yes Patient seen and examined by me. Agree with note by REHEATER HELPER SEE ADDITIONAL ORDERS PER CHART DISCUSSED WITH NURSING STAFF EVERETT SORENSEN PUBLICITY MANAGER Jul 24, 2024 22:50
[2024-07-24] MEDS ORDERED: PoTASSium chl 10% ELIXIR 20MEQ 20 MEQ/15 ML UDCUP PO PRN (23:00)
[2024-07-24] MEDS ORDERED: NITROGLYCERIN 0.4 MG SL TAB SL PRN (23:00)
[2024-07-24] MEDS ORDERED: GLUCAGON 1MG KIT 1 MG ML IM PRN (23:00)
[2024-07-24] MEDS ORDERED: ondanSETRON 4MG INJ IV PRN (23:00)
[2024-07-24] MEDS ORDERED: hydrALAZine 20MG/ML VIAL IV PRN (23:00)
[2024-07-24] MEDS ORDERED: DEXTROSE 50%-WATER 50 ML DISP.SYRIN IV PRN (23:00)
[2024-07-24] MEDS ORDERED: PoTASSium chloRIDE 20MEQ/100ML 100 ML IV PRN (23:00)
[2024-07-24] MEDS ORDERED: LACTULOSE 20 GM/30 ML UDCUP PO PRN (23:00)
[2024-07-25] MEDS: chlorproMAZINE HCL 25 MG TAB PO ONE (00:13)
--- NOTE | 2024-07-25 00:45 | NUR ---
DR. PRUITT MADE AWARE OF CARDIOLOGY CONSULT
--- NOTE | 2024-07-25 00:45 | NUR ---
DR. PRUITT MADE AWARE OF CARDIOLOGY CONSULT AND TROPONIN LEVELS
[2024-07-25] MEDS: furoSEMIDE 20MG VIAL IV SCH (03:30)
[2024-07-25] MEDS: ZOLPidem TARTrate 5 MG TAB PO PRN (03:50)
--- NOTE | 2024-07-25 06:59 | EKG ---
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
[2024-07-25 07:06] LABS: BASOPHILS # (AUTO) 0.04 K/uL (0.00-0.20); BASOPHILS % (AUTO) 0.6 % (0.0-5.0); EOSINOPHILS # (AUTO) 0.23 K/uL (0.00-0.70); EOSINOPHILS % (AUTO) 3.3 % (0.0-8.0); HEMATOCRIT 35.5 % (42-54); IMMATURE GRANULOCYTE ABSOLUTE 0.02 K/uL (0-1); LYMPHOCYTES # (AUTO) 1.3 K/uL (1.0-4.8); LYMPHOCYTES % (AUTO) 18.3 % (21.0-51.0); MEAN CORPUSCULAR HEMOGLOBIN 26.9 pg (27.0-33.0); MEAN CORPUSCULAR HGB CONC 32.4 g/dL (32.0-36.0); MEAN CORPUSCULAR VOLUME 83.1 fL (79-99); MONOCYTES # (AUTO) 0.9 K/uL (0.1-1.0); MONOCYTES % (AUTO) 12.3 % (3.0-13.0); NEUTROPHILS # (AUTO) 4.6 K/uL (1.8-7.7); NEUTROPHILS % (AUTO) 65.2 % (40.0-77.0); PLATELET COUNT (AUTO) 235 K/uL (130-400); RED BLOOD CELL COUNT(AUTO) 4.27 MIL/uL (4.50-6.20); RED CELL DISTRIBUTION WIDTH 16.7 % (11.0-15.5)
[2024-07-25 07:12] LABS: HEMOGLOBIN A1C 8.5 % (4.0-6.0)
[2024-07-25] MEDS: INSULIN humuLIN R 100 UNIT/ML 3ML SQ SCH (07:30)
[2024-07-25 07:34] LABS: B-TYPE NATRIURETIC PEPTIDE 3680 pg/mL (0-100)
[2024-07-25 07:36] LABS: ALBUMIN 2.5 g/dL (3.5-5.0); BILIRUBIN,TOTAL 1.1 mg/dL (0.2-1.0); POTASSIUM 4.1 mmol/L (3.5-5.1); THYROID STIMULATING HORMONE 25.43 uIU/mL (0.36-3.74); TOTAL PROTEIN, SERUM 7.3 g/dL (6.0-8.3)
[2024-07-25] MEDS: ASPIRIN 81 MG EC TAB PO SCH (08:58)
[2024-07-25] MEDS: LoSARTan 25 MG TABLET PO SCH (08:58)
[2024-07-25] MEDS: FAMOTIDINE 20MG TAB PO SCH (08:58)
[2024-07-25] MEDS: metOPROLol sucCINATE 50 MG TAB.SR.24H PO SCH (08:59)
[2024-07-25] MEDS: levoTHYROxine 50 MCG TABLET PO SCH (09:09)
--- NOTE | 2024-07-25 10:27 | PN ---
[facility] PROGRESS NOTE Date of Service: Jul 25, 2024 Time of Service: 10:24 SUBJECTIVE: [ ] This is a 64-year-old male,he is inhouse arrest with left ankle monitory with past medical history of CKD, diabetes, hypertension, congestive heart failure with ischemic cardiomyopathy, hyperlipidemia, hypothyroidism and multivessel coronary artery disease who presents to the ED for complaints of lower extremity swelling, shortness of breath, chest soreness started for the past four days. Patient reports she was admitted last July 04, 2024 for a diagnosis of CHF and non-STEMI and patient underwent a left heart catheterization where he was found to have multivessel coronary artery disease and at the time a recommendation for surgical revascularization was offered to him and he deferred because he wants to be seen by an opthalmologist due to his retinal bleeding which he was so concerned of losing his eyesight and he was discharged home he said on 07/14/2024. 07/25/24 Patient seen and examied with Dr Guerra in ER holding: Patient continues with dyspnea with minimal exertion. Noted cellulitis to right lower extremity was started the patient on Rocephin1 g Dopplers to rule out DVT. Patient also complained of hiccups we will start him on Cayoht19 mg t.i.d. PRN for anxiety in hiccups. REVIEW OF SYSTEMS CONSTITUTIONAL: Denies fevers, chills, or night sweats. No unintentional weight loss reported. NEUROLOGICAL: Denies headache, amaurosis fugax, motor weakness, sensory deficit, vertigo/spinning sensation, gait abnormalities, or tremors. ENT: No hearing loss, otalgia, otorrhea, rhinitis, rhinorrhea, hoarseness, or sore throat. CARDIOVASCULAR: Hiccups associated with chest soreness Denies any exertional angina, dyspnea on exertion, orthopnea, paroxysmal nocturnal dyspnea, palpitatio ns, life-threatening arrhythmias, claudication. PULMONARY: Hiccups associated with Shortness of breath Denies any shortness of breath, cough, phlegm/sputum, hemoptysis, pleuritic chest pain. SLEEP: Denies morning headaches, daytime somnolence or napping. Denies difficulty falling asleep, staying asleep, waking from sleep. Denies knowledge of snoring. GASTROINTESTINAL: Denies any type of dysphagia to either liquids or solids. Denies nausea, vomiting, pyrosis, early satiety, abdominal pain, diarrhea, constipation, or changes in stool consistency or caliber. Denies coffee-ground emesis, hematemesis, hematochezia, or melanotic stools. GENITOURINARY: Denies frequency, urgency, nocturia, hematuria or incontinence (Storage/Irritative symptoms.) Low urinary stream, straining to void, urinary intermittency or hesitancy, splitting of the voiding stream, terminal dribbling. ENDOCRINOLOGIC: Denies polyuria, polydipsia, polyphagia or heat/cold intolerances. HEMATOLOGIC: Denies thrombophilia/previous clots, or coagulopathy/bleeding disorders. ONCOLOGIC: Denies personal history of malignancy. DERMATOLOGIC: Denies rashes or pruritus. PSYCHIATRIC: Denies any suicidal or homicidal ideation. Denies hallucinations. PHYSICAL EXAM GENERAL APPEARANCE: The patient is awake, alert, and oriented, in no acute cardiopulmonary distress. NEUROLOGICAL: Cranial nerves II-XII grossly intact. Motor is 5/5 in bilateral upper and lower extremities proximal to distal. No sensory deficits. HEENT: Face is symmetric. Pupils are equal and reactive. Extraocular movements are intact. NECK: Supple. No JVD. No thyromegaly. No submental, submandibular, pre- /postauricular, occipital or supraclavicular lymphadenopathy. CHEST: Normal chest expansion. No Telemetry. LUNGS: Absence of any rales, rhonchi or any wheezing. CARDIOVASCULAR: Regular. S1 and S2 normal. No appreciable rubs, murmurs or gallops. ABDOMEN: Soft, nontender, and nondistended. There is no rebound, voluntary guarding, or rigidity. : Deferred. No Guillermo. EXTREMITIES: 2+ edema to bilateral lower extremities SKIN: No skin breakdown. Vital Signs (last 8hr) Date Time Temp Pulse Resp B/P (MAP) Pulse Ox O2 Delivery O2 Flow Rate FiO2 07/25/24 09:10 99 16 104/75 97 Room Air* 0 07/25/24 07:40 97.7 98 16 101/69 98 Room Air* 0 07/25/24 03:50 113 18 116/83 97 Room Air* 0 07/25/24 02:35 102 18 118/75 98 Room Air* 0 21 LABS: Laboratory: Test 07/25/24 07:56 07/25/24 06:43 07/24/24 21:28 07/24/24 18:43 Range/Units Whole Blood Glucose 173 H 70-110 MG/DL White Blood Count 7.0 4.8-10.8 K/uL Red Blood Count 4.27 L 4.50-6.20 MIL/uL Hemoglobin 11.5 L 14.0-18.0 g/dL Hematocrit 35.5 L 42-54 % Mean Corpuscular Volume 83.1 79-99 fL Mean Corpuscular Hemoglobin 26.9 L 27.0-33.0 pg Mean Corpuscular Hemoglobin Concent 32.4 32.0-36.0 g/dL Red Cell Distribution Width 16.7 H 11.0-15.5 % Platelet Count 235 130-400 K/uL Mean Platelet Volume 10.3 7.5-10.5 fL Immature Granulocyte % (Auto) 0.3 0-1 % Neutrophils (%) (Auto) 65.2 40.0-77.0 % Lymphocytes (%) (Auto) 18.3 L 21.0-51.0 % Monocytes (%) (Auto) 12.3 3.0-13.0 % Eosinophils (%) (Auto) 3.3 0.0-8.0 % Basophils (%) (Auto) 0.6 0.0-5.0 % Neutrophils # (Auto) 4.6 1.8-7.7 K/uL Lymphocytes # (Auto) 1.3 1.0-4.8 K/uL Monocytes # (Auto) 0.9 0.1-1.0 K/uL Eosinophils # (Auto) 0.23 0.00-0.70 K/uL Basophils # (Auto) 0.04 0.00-0.20 K/uL Absolute Immature Granulocyte (auto 0.02 0-1 K/uL Nucleated Red Blood Cells 0.0 0.0-0.19 % Sodium Level 136 136-145 mmol/L Potassium Level 4.1 3.5-5.1 mmol/L Chloride Level 101 101-111 mmol/L Carbon Dioxide Level 26 21-32 mmol/L Blood Urea Nitrogen 50 H 7-18 mg/dL Creatinine 2.0 H 0.5-1.3 mg/dL Glomerular Filtration Rate Calc 37 >90 mL/min Random Glucose 183 H 70-105 mg/dL Hemoglobin A1c 8.5 H 4.0-6.0 % Estimated Average Glucose (eAG) 197 H 70-126 mg/dL Total Calcium 8.5 8.5-10.1 mg/dL Magnesium Level 2.00 1.80-2.40 mg/dL Total Bilirubin 1.1 H 0.2-1.0 mg/dL Aspartate Amino Transf (AST/SGOT) 42 H 10-37 U/L Alanine Aminotransferase (ALT/SGPT) 42 12-78 U/L Alkaline Phosphatase 191 H 50-136 U/L Troponin I High Sensitivity 1845 *H 4-75 ng/L B-Type Natriuretic Peptide 3680 H 0-100 pg/mL Total Protein 7.3 6.0-8.3 g/dL Albumin 2.5 L 3.5-5.0 g/dL Triglycerides Level 50 30-200 mg/dL Cholesterol Level 104 <200 mg/dL LDL Cholesterol 65 0-99 mg/dL HDL Cholesterol 37 29-71 mg/dL Thyroid Stimulating Hormone (TSH) 25.43 #H 0.36-3.74 uIU/mL Urine Color LIGHT-YELLOW YELLOW Urine Appearance CLEAR CLEAR Urine pH 6.0 5.0-8.0 Urine Specific [place] 1.016 1.001-1.031 Urine Protein 200 H NEGATIVE mg/dL Urine Glucose (UA) 500 H NEGATIVE mg/dL Urine Ketones NEGATIVE NEGATIVE mg/dL Urine Occult Blood MODERATE H NEGATIVE Urine Nitrate NEGATIVE NEGATIVE Urine Bilirubin NEGATIVE NEGATIVE mg/dL Urine Urobilinogen 0.2 0.2-1.0 mg/dL Urine Leukocyte Esterase NEGATIVE NEGATIVE Anabelle/uL Urine RBC 6-10 H 0-1 /HPF Urine WBC 0-1 0-1 /HPF Urine Bacteria None None Seen /HPF White Cell Morphology Comment See comments Prothrombin Time 11.3 9.6-11.6 SEC Prothromb Time International Ratio 1.05 0.85-1.15 Activated Partial Thromboplast Time 26.1 L 26.3-35.5 SEC Current Medications Medications (Trade) Dose Ordered Sig/Anjelica Route PRN Reason Start Time Stop Time Status Last Admin Dose Admin Aspirin (Aspirin 81mg Ec Tab) 81 mg DAILY PO 07/25/24 09:00 08/24/24 08:59 07/25/24 08:58 81 MG Atorvastatin Calcium (LIPItor 20MG) 20 mg HS PO 07/25/24 21:00 08/24/24 20:59 Dextrose (D50w) 50 ml AD PRN IV HYPOGLYCEMIA PROTOCOL 07/24/24 23:00 08/23/24 22:59 Famotidine (Pepcid 20mg Tab) 20 mg DAILY PO 07/25/24 09:00 08/24/24 08:59 07/25/24 08:58 20 MG Furosemide (LASix 20MG VIAL) 20 mg Q8H IV 07/25/24 03:30 08/24/24 03:29 07/25/24 03:30 20 MG Glucagon (Glucagon 1mg Kit) 1 mg AD PRN IM HYPOGLYCEMIA PROTOCOL 07/24/24 23:00 08/23/24 22:59 Hydralazine HCl (APRESOLine 20MG INJ) 10 mg Q6H PRN IV For:SBP above 160;DBP above 90 07/24/24 23:00 08/23/24 22:59 Insulin Human Regular (humuLIN R 100 UNIT/ML 3ML) INSULIN SLIDING SCAL... ACHS SQ 07/25/24 07:30 08/24/24 07:29 Lactulose (Constulose 20gm/ 30ml Udcup) 20 gm BID PRN PO CONSTIPATION 07/24/24 23:00 08/23/24 22:59 Levothyroxine Sodium (SYNTHroid 50MCG TAB) 50 mcg SYN PO 07/25/24 06:30 08/24/24 06:29 07/25/24 09:09 50 MCG Losartan Potassium (CozAAR 25MG TAB) 25 mg DAILY PO 07/25/24 09:00 08/24/24 08:59 Magnesium Sulfate 50 ml @ 0 mls/hr PROTOCOL PRN IV OTHER [SEE ORDER COMMENTS] 07/24/24 23:00 08/23/24 22:59 Metoprolol Succinate (TopROL XL) 50 mg DAILY PO 07/25/24 09:00 08/24/24 08:59 07/25/24 08:59 50 MG Nitroglycerin (Nitrostat) 0.4 mg PROTOCOL PRN SL CHEST PAIN 07/24/24 23:00 08/23/24 22:59 Ondansetron HCl (zoFRAN 4MG INJ) 4 mg Q6H PRN IV NAUSEA/VOMITING 07/24/24 23:00 08/23/24 22:59 Potassium Chloride 100 ml @ 100 mls/hr AD PRN IV POTASSIUM PROTOCOL 07/24/24 23:00 08/23/24 22:59 Potassium Chloride (K-Dur/Klor-Con 20meq) 20 meq AD PRN PO POTASSIUM PROTOCOL 07/24/24 23:00 08/23/24 22:59 Potassium Chloride (KCl 10% Elixir 20meq/15ml) 20 meq AD PRN PO POTASSIUM PROTOCOL 07/24/24 23:00 08/23/24 22:59 Zolpidem Tartrate (AmbIEN) 5 mg HS PRN PO INSOMNIA 07/24/24 23:00 08/23/24 22:59 07/25/24 03:50 5 MG DIAGNOSTICS / RADIOLOGY: [ ] ASSESSMENT: CHF exacerbation with ischemic cardiomyopathy POA POA Non STEMI POA Cellulitis right lower extremity POA Hyperglycemia secondary to uncontrolled diabetes POA Pseudohyponatremia due to hyperglycemia POA Chronic kidney disease POA Anemia due to CKD POA Anxiety disorder POA Hiccup episodes POA Multivessel coronary artery disease POA Hypertension POA Hyperlipidemia POA Recent bilateral vitreous hemorrhage POA Diabetic retinopathy and neuropathy POA PLAN: Remain ER holding bed waiting for PCCU bed Water Jet Operator's consulted aspirin 81 mg p.o. per home dose and statin therapy.metoprolol 50 mg p.o. daily Continue with diuretics Lasix 20 mg IV every 12 hours. Continue levothyroxine 50 mcg p.o. daily per home dose Continue fluid restriction strict I&Os daily weight Rocephin 1 g every24 hours, venous Doppler to rule out DVT. Replace electrolytes to keep potassium above 4.0 magnesium above 2.0. Continue insulin sliding scale AC & HS with hypoglycemia protocol Continue prn medication for fever,pain,nausea and vomiting We will reconcile home meds once medlist available Atarax 25 mg t.i.d. PRN for anxiety and hiccups. Further orders to follow depending on above results Case discussed with attending physician and came up with above treatment and plan of care. ATTESTATION BY PHYSICIAN I have seen and examined the patient. I reviewed the documentation, medical decision making, and treatment plan as noted by the mid-level provider above. I agree with the findings and plan of care. GARRY GUERRA MD, ELIZABETH NP Jul 25, 2024 10:27
--- NOTE | 2024-07-25 10:41 | NUR ---
[facility]SE CHECK IN [facility] CALLED TO CHECK ON THE CURRENT SATUS OF PATIENT.
--- NOTE | 2024-07-25 13:53 | NUR ---
DCP: HOME Pt lives with his sister Yesica Singletary [phone] and brother Tae Haro in a first floor apt. Pt states he is legally blind, siblings assist as needed. Pt uses a cane as needed, has no DME or in home care services at this time. PCP is Yeny Crowley and uses [facility] in [place] for rx. Pt denies need for SNF, states he will return home at al. Addendum: 07/25/24 at 1358 by ANJALI RINCON SS Amended: Links added.
[2024-07-25] MEDS ORDERED: hydrOXYzine 25 MG TABLET PO PRN (14:00)
[2024-07-25] MEDS: cefTRIAXone 1G VIAL IVPB SCH (14:08)
--- NOTE | 2024-07-25 15:45 | NUR ---
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 HE STATES HE HAS TO KEEP THAT APPOINTMENT OR HE WILL NOT GET HIS MEDICATIONS ON TIME AND IT HAS BEEN 3 WEEKS WITH OUT PRESCRIPITONS.
--- NOTE | 2024-07-25 15:50 | NUR ---
SPOKE TO RICARDO DICKSON RELAYS DRAFTSPERSON AND SHE IS REQUESTING MEDICATION REFILLS TO BE CALLED IN OR FAXED AT THE TIME OF PT DISCHARGE. SHE CAN BE REACHED AT [phone] ext [phone]. SHE STATES THAT LAST TIME PT WAS ADMITTED AND DISCHARGED HE DID NOT GET ANY MEDICATION PRESCRIPTIONS.
--- NOTE | 2024-07-25 15:59 | HMCIMG ---
US VENOUS DOPPLER BILATERAL HISTORY: Edema COMPARISON: None TECHNIQUE: Bilateral lower extremity venous Doppler ultrasound study was performed. FINDINGS: The common femoral, femoral, popliteal, and posterior tibial veins are visualized. Noncompressible thrombus is seen in the right popliteal vein consistent with deep venous thrombosis. Normal flow with augmentation and compressibilities are otherwise demonstrated. The greater saphenous veins are also seen and grossly patent. IMPRESSION: 1. Noncompressible thrombus is seen in the right popliteal vein consistent with deep venous thrombosis.
--- NOTE | 2024-07-25 16:22 | CONS ---
CONSULT NOTE: Reason for consult: CHF HPI/story at presentation: This is a pleasant 64-year-old male with past medical history of the present with complaints of shortness of breath, was diagnosed with CHF exacerbation cardiology was consulted for further evaluation management. Known history of cardiomyopathy, ejection fraction 15 to 20% with previous stress testing with no ischemia or infarction pattern, 02/2024 he has been noncompliant with Lasix at home, here for further eval, had a Cdone last admission with MVCAD, However, patient has been refusing bypass because of need of anticoagulation preoperatively. Subjective: 07/25/2024 sob, edema Past medical history: See below Allergies, Meds See chart Review of systems Review of Systems Constitutional: Negative for chills and fever. HENT: Negative for ear discharge and ear pain. Eyes: Negative for photophobia and discharge. Respiratory: Negative for cough, sputum production and stridor. Cardiovascular: Negative for chest pain and palpitations. Gastrointestinal: Negative for diarrhea and vomiting. Genitourinary: Negative for frequency. Musculoskeletal: Negative for myalgias. Skin: Negative for rash. Neurological: Negative for focal weakness and seizures. Endo/Heme/Allergies: Negative for polydipsia. Psychiatric/Behavioral: Negative for hallucinations. Vitals see chart PHYSICAL EXAMINATION GENERAL: The patient is alert and oriented*3 HEENT: Nonicteric sclerae, non traumatic HEART: Regular rate and rhythm with no murmurs LUNGS: Clear to auscultation bilaterally ABDOMEN: No acute issues, non tender GENITAL, RECTAL: deferred SKIN: No rash NEUROLOGIC: NFND EXTREMITIES:EDEMA 07/2024 ASSESSMENT EXACERBATION OF CHF, CARDIOMYOPATHY Noncompliant with diuretics at home History of ischemic cardiomyopathy MVCAD on cath 07/2024 Stress test with infarction pattern, 02/2024 Ejection fraction of 15 to 20%, 06/2024 On diuresis with Bumex, 06/2024 Normal venous Dopplers, 06/2024 NSTEMI Initial troponin of 1600, trending down HEMATURIA Moderate hematuria, 06/2024 CHRONIC KIDNEY DISEASE Stage III 2.3 at presentation Creatinine at discharge from hospital, 06/2024 was 2.2 HYPERTENSION HYPERLIPIDEMIA DIABETES, TOBACCO USE CORE MEASURES Not on guideline directed medical therapy for cardiomyopathy given renal dysfunction OTHER MEDICAL PROBLEMS Anxiety disorder Diabetic neuropathy PLAN 07/25/2024 Agree with IV diuresis for cardiomyopathy will also start him on a small dose of dobutamine to help with diuresis. Discussed possible bypass with the patient again today but at this time, patient still is hesitant because of risk of bleeding and possible worsening ocular changes. Troponin elevation and recurrent myocardial injury in the setting of recurrent CHF and prolonged prognosis in the setting was all discussed but patient is still considering options. ATTESTATION I was involved substantially in the care of this patient Number and complexity of problems addressed 1 illness withs evere exacerbation Amount and or complexity of data Review of prior external note(s) from each unique source - Number 2+_ Ordering of each unique test - Number 0 Review of the result(s) of each unique test - Number 2+ Assessment requiring an independent historian(s) No Independent interpretation of test performed by another MD/QHCP/appropriate source (not separately reported) No Discussion of management or test interpretation with external MD/QHCP/appropriate source (not separately reported) No Risk status (cardiac, billing related) GUSTAVO Corrigan MD Jul 25, 2024 16:22
[2024-07-25] MEDS: doBUTamine 250MG/D5 250ML 250 ML IV SCH (17:45)
[2024-07-25] MEDS ORDERED: PHARMACY COMMUNICATION MISC SCH (18:30)
[2024-07-25] MEDS: acetaMINOPHEN 325 MG TAB ONE (20:39)
[2024-07-25] MEDS: atorVAStatin 20 MG TABLET PO SCH (20:39)
[2024-07-25] MEDS: acetaMINOPHEN 325 MG TAB PO PRN (20:39)
--- NOTE | 2024-07-25 23:38 | NUR ---
FRANCHESCA DELGADILLO MADE AWARE OF ULTRASOUND RESULTS
--- NOTE | 2024-07-25 23:45 | NUR ---
REPORT GIVEN TO SHRUTI HEARD
[2024-07-26] VITALS (10 sets, daily range): BP systolic 95–131; BP diastolic 49–78; PULSE 74–93; RESP 18–20; TEMP 97.1–98.6; O2SAT 99–100
[2024-07-26 04:21] LABS: BASOPHILS # (AUTO) 0.07 K/uL (0.00-0.20); EOSINOPHILS # (AUTO) 0.28 K/uL (0.00-0.70); EOSINOPHILS % (AUTO) 4.1 % (0.0-8.0); HEMATOCRIT 34.1 % (42-54); IMMATURE GRANULOCYTE ABSOLUTE 0.01 K/uL (0-1); LYMPHOCYTES # (AUTO) 1.2 K/uL (1.0-4.8); LYMPHOCYTES % (AUTO) 17.6 % (21.0-51.0); MEAN CORPUSCULAR HEMOGLOBIN 27.1 pg (27.0-33.0); MEAN CORPUSCULAR HGB CONC 32.3 g/dL (32.0-36.0); MONOCYTES % (AUTO) 14.2 % (3.0-13.0); NEUTROPHILS # (AUTO) 4.3 K/uL (1.8-7.7); PLATELET COUNT (AUTO) 226 K/uL (130-400); RED BLOOD CELL COUNT(AUTO) 4.06 MIL/uL (4.50-6.20); RED CELL DISTRIBUTION WIDTH 16.5 % (11.0-15.5); WHITE BLOOD COUNT (AUTO) 6.8 K/uL (4.8-10.8)
[2024-07-26 04:44] LABS: ALBUMIN 2.2 g/dL (3.5-5.0); BILIRUBIN,TOTAL 0.9 mg/dL (0.2-1.0); MAGNESIUM 1.9 mg/dL (1.80-2.40); POTASSIUM 3.9 mmol/L (3.5-5.1)
--- NOTE | 2024-07-26 08:15 | PN ---
[facility] PROGRESS NOTE Date of Service: Jul 26, 2024 Time of Service: 08:07 SUBJECTIVE: [ ] This is a 64-year-old male,he is inhouse arrest with left ankle monitory with past medical history of CKD, diabetes, hypertension, congestive heart failure with ischemic cardiomyopathy, hyperlipidemia, hypothyroidism and multivessel coronary artery disease who presents to the ED for complaints of lower extremity swelling, shortness of breath, chest soreness started for the past four days. Patient reports she was admitted last July 04, 2024 for a diagnosis of CHF and non-STEMI and patient underwent a left heart catheterization where he was found to have multivessel coronary artery disease and at the time a recommendation for surgical revascularization was offered to him and he deferred because he wants to be seen by an opthalmologist due to his retinal bleeding which he was so concerned of losing his eyesight and he was discharged home he said on 07/14/2024. 07/25/24 Patient seen and examied with Dr Guerra in ER holding: Patient continues with dyspnea with minimal exertion. Noted cellulitis to right lower extremity was started the patient on Rocephin1 g Dopplers to rule out DVT. Patient also complained of hiccups we will start him on [id number] mg t.i.d. PRN for anxiety in hiccups. 07/26/24 patient is seen and examined in PCCU with Dr. Guerra. Reviewed chart: Patient is sitting on the edge of the bed fully awake alert oriented x3. imaging venous Doppler: . Noncompressible thrombus is seen in the right popliteal vein consistent with deep venous thrombosis. Patient is not a candidate for anticoagulation therapy given to Recent bilateral vitreous hemorrhage; therefore we will schedule IR for IVC filter. Patient was seen by continuous absorption process operator's appreciate their input started patient on a small dose of dopamine for diuresis. Patient weight 87.1 Kg On admission 81.6 kg. REVIEW OF SYSTEMS CONSTITUTIONAL: Denies fevers, chills, or night sweats. No unintentional weight loss reported. NEUROLOGICAL: Denies headache, amaurosis fugax, motor weakness, sensory deficit, vertigo/spinning sensation, gait abnormalities, or tremors. ENT: No hearing loss, otalgia, otorrhea, rhinitis, rhinorrhea, hoarseness, or sore throat. CARDIOVASCULAR: Hiccups associated with chest soreness Denies any exertional angina, dyspnea on exertion, orthopnea, paroxysmal nocturnal dyspnea, palpi tations, life-threatening arrhythmias, claudication. PULMONARY: Hiccups associated with Shortness of breath Denies any shortness of breath, cough, phlegm/sputum, hemoptysis, pleuritic chest pain. SLEEP: Denies morning headaches, daytime somnolence or napping. Denies difficulty falling asleep, staying asleep, waking from sleep. Denies knowledge of snoring. GASTROINTESTINAL: Denies any type of dysphagia to either liquids or solids. Denies nausea, vomiting, pyrosis, early satiety, abdominal pain, diarrhea, constipation, or changes in stool consistency or caliber. Denies coffee-ground emesis, hematemesis, hematochezia, or melanotic stools. GENITOURINARY: Denies frequency, urgency, nocturia, hematuria or incontinence (Storage/Irritative symptoms.) Low urinary stream, straining to void, urinary intermittency or hesitancy, splitting of the voiding stream, terminal dribbling. ENDOCRINOLOGIC: Denies polyuria, polydipsia, polyphagia or heat/cold intolerances. HEMATOLOGIC: Denies thrombophilia/previous clots, or coagulopathy/bleeding disorders. ONCOLOGIC: Denies personal history of malignancy. DERMATOLOGIC: Denies rashes or pruritus. PSYCHIATRIC: Denies any suicidal or homicidal ideation. Denies hallucinations. PHYSICAL EXAM GENERAL APPEARANCE: The patient is awake, alert, and oriented, in no acute cardiopulmonary distress. NEUROLOGICAL: Cranial nerves II-XII grossly intact. Motor is 5/5 in bilateral upper and lower extremities proximal to distal. No sensory deficits. HEENT: Face is symmetric. Pupils are equal and reactive. Extraocular movements are intact. NECK: Supple. No JVD. No thyromegaly. No submental, submandibular, pre- /postauricular, occipital or supraclavicular lymphadenopathy. CHEST: Normal chest expansion. No Telemetry. LUNGS: Absence of any rales, rhonchi or any wheezing. CARDIOVASCULAR: Regular. S1 and S2 normal. No appreciable rubs, murmurs or gallops. ABDOMEN: Soft, nontender, and nondistended. There is no rebound, voluntary g uarding, or rigidity. : Deferred. No Guillermo. EXTREMITIES: 2+ edema to bilateral lower extremities SKIN: No skin breakdown. Vital Signs (last 8hr) Date Time Temp Pulse Resp B/P (MAP) Pulse Ox O2 Delivery O2 Flow Rate FiO2 07/26/24 04:26 98.2 78 18 111/76 95 Room Air 07/26/24 00:17 98.2 92 18 110/75 100 Room Air LABS: Laboratory: Test 07/26/24 05:14 07/26/24 04:13 07/25/24 11:02 07/25/24 06:43 Range/Units Whole Blood Glucose 110 # 70-110 MG/DL White Blood Count 6.8 4.8-10.8 K/uL Red Blood Count 4.06 L 4.50-6.20 MIL/uL Hemoglobin 11.0 L 14.0-18.0 g/dL Hematocrit 34.1 L 42-54 % Mean Corpuscular Volume 84.0 79-99 fL Mean Corpuscular Hemoglobin 27.1 27.0-33.0 pg Mean Corpuscular Hemoglobin Concent 32.3 32.0-36.0 g/dL Red Cell Distribution Width 16.5 H 11.0-15.5 % Platelet Count 226 130-400 K/uL Mean Platelet Volume 10.1 7.5-10.5 fL Immature Granulocyte % (Auto) 0.1 0-1 % Neutrophils (%) (Auto) 63.0 40.0-77.0 % Lymphocytes (%) (Auto) 17.6 L 21.0-51.0 % Monocytes (%) (Auto) 14.2 H 3.0-13.0 % Eosinophils (%) (Auto) 4.1 0.0-8.0 % Basophils (%) (Auto) 1.0 0.0-5.0 % Neutrophils # (Auto) 4.3 1.8-7.7 K/uL Lymphocytes # (Auto) 1.2 1.0-4.8 K/uL Monocytes # (Auto) 1.0 0.1-1.0 K/uL Eosinophils # (Auto) 0.28 0.00-0.70 K/uL Basophils # (Auto) 0.07 0.00-0.20 K/uL Absolute Immature Granulocyte (auto 0.01 0-1 K/uL Nucleated Red Blood Cells 0.0 0.0-0.19 % Sodium Level 135 L 136-145 mmol/L Potassium Level 3.9 3.5-5.1 mmol/L Chloride Level 100 L 101-111 mmol/L Carbon Dioxide Level 31 21-32 mmol/L Blood Urea Nitrogen 50 H 7-18 mg/dL Creatinine 2.0 H 0.5-1.3 mg/dL Glomerular Filtration Rate Calc 37 >90 mL/min Random Glucose 111 H 70-105 mg/dL Total Calcium 8.3 L 8.5-10.1 mg/dL Magnesium Level 1.90 1.80-2.40 mg/dL Total Bilirubin 0.9 0.2-1.0 mg/dL Aspartate Amino Transf (AST/SGOT) 46 H 10-37 U/L Alanine Aminotransferase (ALT/SGPT) 38 12-78 U/L Alkaline Phosphatase 189 H 50-136 U/L Total Protein 7.0 6.0-8.3 g/dL Albumin 2.2 L 3.5-5.0 g/dL Troponin I High Sensitivity 1895 *H 4-75 ng/L Hemoglobin A1c 8.5 H 4.0-6.0 % Estimated Average Glucose (eAG) 197 H 70-126 mg/dL B-Type Natriuretic Peptide 3680 H 0-100 pg/mL Triglycerides Level 50 30-200 mg/dL Cholesterol Level 104 <200 mg/dL LDL Cholesterol 65 0-99 mg/dL HDL Cholesterol 37 29-71 mg/dL Thyroid Stimulating Hormone (TSH) 25.43 #H 0.36-3.74 uIU/mL Test 07/24/24 21:28 07/24/24 18:43 Range/Units Urine Color LIGHT-YELLOW YELLOW Urine Appearance CLEAR CLEAR Urine pH 6.0 5.0-8.0 Urine Specific [place] 1.016 1.001-1.031 Urine Protein 200 H NEGATIVE mg/dL Urine Glucose (UA) 500 H NEGATIVE mg/dL Urine Ketones NEGATIVE NEGATIVE mg/dL Urine Occult Blood MODERATE H NEGATIVE Urine Nitrate NEGATIVE NEGATIVE Urine Bilirubin NEGATIVE NEGATIVE mg/dL Urine Urobilinogen 0.2 0.2-1.0 mg/dL Urine Leukocyte Esterase NEGATIVE NEGATIVE [place]abelle/uL Urine RBC 6-10 H 0-1 /HPF Urine WBC 0-1 0-1 /HPF Urine Bacteria None None Seen /HPF White Cell Morphology Comment See comments Prothrombin Time 11.3 9.6-11.6 SEC Prothromb Time International Ratio 1.05 0.85-1.15 Activated Partial Thromboplast Time 26.1 L 26.3-35.5 SEC Current Medications Medications (Trade) Dose Ordered Sig/Anjelica Route PRN Reason Start Time Stop Time Status Last Admin Dose Admin Acetaminophen (TYLenol 325MG TAB) 650 mg Q6H PRN PO MILD PAIN (1-3) 07/25/24 20:30 08/24/24 20:29 07/25/24 20:39 650 MG Aspirin (Aspirin 81mg Ec Tab) 81 mg DAILY PO 07/25/24 09:00 08/24/24 08:59 07/25/24 08:58 81 MG Atorvastatin Calcium (LIPItor 20MG) 20 mg HS PO 07/25/24 21:00 08/24/24 20:59 07/25/24 20:39 20 MG Ceftriaxone Sodium (ROCEphine 1G INJ) 1 gm Q24H IVPB 07/25/24 14:00 08/04/24 13:59 07/25/24 14:08 1 GM Dextrose (D50w) 50 ml AD PRN IV HYPOGLYCEMIA PROTOCOL 07/24/24 23:00 08/23/24 22:59 Dobutamine HCl/ Dextrose 250 ml @ 0 mls/hr PROTOCOL IV 07/25/24 16:30 08/24/24 16:29 07/25/24 17:45 10.42 MLS/HR Famotidine (Pepcid 20mg Tab) 20 mg DAILY PO 07/25/24 09:00 08/24/24 08:59 07/25/24 08:58 20 MG Furosemide (LASix 20MG VIAL) 20 mg Q8H IV 07/25/24 03:30 08/24/24 03:29 07/26/24 03:49 20 MG Glucagon (Glucagon 1mg Kit) 1 mg AD PRN IM HYPOGLYCEMIA PROTOCOL 07/24/24 23:00 08/23/24 22:59 Hydralazine HCl (APRESOLine 20MG INJ) 10 mg Q6H PRN IV For:SBP above 160;DBP above 90 07/24/24 23:00 08/23/24 22:59 Hydroxyzine HCl (ATArax 25MG TAB) 25 mg TID PRN PO ITCHING 07/25/24 14:00 08/24/24 13:59 Insulin Human Regular (humuLIN R 100 UNIT/ML 3ML) INSULIN SLIDING SCAL... ACHS SQ 07/25/24 07:30 08/24/24 07:29 07/25/24 21:03 4 UNIT Lactulose (Constulose 20gm/ 30ml Udcup) 20 gm BID PRN PO CONSTIPATION 07/24/24 23:00 08/23/24 22:59 Levothyroxine Sodium (SYNTHroid 50MCG TAB) 50 mcg SYN PO 07/25/24 06:30 08/24/24 06:29 07/26/24 05:38 50 MCG Losartan Potassium (CozAAR 25MG TAB) 25 mg DAILY PO 07/25/24 09:00 08/24/24 08:59 Magnesium Sulfate 50 ml @ 0 mls/hr PROTOCOL PRN IV OTHER [SEE ORDER COMMENTS] 07/24/24 23:00 08/23/24 22:59 Metoprolol Succinate (TopROL XL) 50 mg DAILY PO 07/25/24 09:00 08/24/24 08:59 07/25/24 08:59 50 MG Nitroglycerin (Nitrostat) 0.4 mg PROTOCOL PRN SL CHEST PAIN 07/24/24 23:00 08/23/24 22:59 Ondansetron HCl (zoFRAN 4MG INJ) 4 mg Q6H PRN IV NAUSEA/VOMITING 07/24/24 23:00 08/23/24 22:59 Pharmacy Profile Note (Pharmacy Communication) 1 each AD MISC 07/25/24 18:30 07/26/24 07:14 DC Potassium Chloride 100 ml @ 100 mls/hr AD PRN IV POTASSIUM PROTOCOL 07/24/24 23:00 08/23/24 22:59 Potassium Chloride (K-Dur/Klor-Con 20meq) 20 meq AD PRN PO POTASSIUM PROTOCOL 07/24/24 23:00 08/23/24 22:59 Potassium Chloride (KCl 10% Elixir 20meq/15ml) 20 meq AD PRN PO POTASSIUM PROTOCOL 07/24/24 23:00 08/23/24 22:59 Zolpidem Tartrate (AmbIEN) 5 mg HS PRN PO INSOMNIA 07/24/24 23:00 08/23/24 22:59 07/25/24 03:50 5 MG DIAGNOSTICS / RADIOLOGY: [ ] ASSESSMENT: CHF exacerbation with ischemic cardiomyopathy POA POA Non STEMI POA Cellulitis right lower extremity POA Hyperglycemia secondary to uncontrolled diabetes POA Pseudohyponatremia due to hyperglycemia POA Chronic kidney disease POA Cardiac renal syndrome Anemia due to CKD POA Anxiety disorder POA Hiccup episodes POA improved Multivessel coronary artery disease POA Hypertension POA Hyperlipidemia POA Recent bilateral vitreous hemorrhage POA Diabetic retinopathy and neuropathy POA Noncompliance with medication Lasix POA . Noncompressible thrombus is seen in the right popliteal vein consistent with deep venous thrombosis. not a candidate for anticoagulation therapy POA PLAN: PCCU unit [employer] following started patient on dobutamine drip small dose. aspirin 81 mg p.o. per home dose and statin therapy.metoprolol 50 mg p.o. daily Continue with diuretics Lasix 20 mg IV every 12 hours. Continue levothyroxine 50 mcg p.o. daily per home dose Continue fluid restriction strict I&Os daily weight Doppler venous noted IR for IVC filter Rocephin 1 g every24 hours, Patient's baseline creatinine 2.0. Replace electrolytes to keep potassium above 4.0 magnesium above 2.0. Continue insulin sliding scale AC & HS with hypoglycemia protocol Continue prn medication for fever,pain,nausea and vomiting Atarax 25 mg t.i.d. PRN for anxiety and hiccups. Further orders to follow depending on above results Case discussed with attending physician and came up with above treatment and plan of care. ATTESTATION BY PHYSICIAN I have seen and examined the patient. I reviewed the documentation, medical decision making, and treatment plan as noted by the mid-level provider above. I agree with the findings and plan of care. GARRY GUERRA MD, ELIZABETH NP Jul 26, 2024 08:15
--- NOTE | 2024-07-26 12:58 | PN ---
Reason for consult: CHF HPI/story at presentation: This is a pleasant 64-year-old male with past medical history of the present with complaints of shortness of breath, was diagnosed with CHF exacerbation cardiology was consulted for further evaluation management. Known history of cardiomyopathy, ejection fraction 15 to 20% with previous stress testing with no ischemia or infarction pattern, 02/2024 he has been noncompliant with Lasix at home, here for further eval, had a Cdone last admission with MVCAD, However, patient has been refusing bypass because of need of anticoagulation preoperatively. Subjective: 07/25/2024 sob, edema 07/26/2024 breathing better Past medical history: See below Allergies, Meds See chart Review of systems Review of Systems Constitutional: Negative for chills and fever. HENT: Negative for ear discharge and ear pain. Eyes: Negative for photophobia and discharge. Respiratory: Negative for cough, sputum production and stridor. Cardiovascular: Negative for chest pain and palpitations. Gastrointestinal: Negative for diarrhea and vomiting. Genitourinary: Negative for frequency. Musculoskeletal: Negative for myalgias. Skin: Negative for rash. Neurological: Negative for focal weakness and seizures. Endo/Heme/Allergies: Negative for polydipsia. Psychiatric/Behavioral: Negative for hallucinations. Vitals see chart PHYSICAL EXAMINATION GENERAL: The patient is alert and oriented*3 HEENT: Nonicteric sclerae, non traumatic HEART: Regular rate and rhythm with no murmurs LUNGS: Clear to auscultation bilaterally ABDOMEN: No acute issues, non tender GENITAL, RECTAL: deferred SKIN: No rash NEUROLOGIC: NFND EXTREMITIES:EDEMA 07/2024 ASSESSMENT EXACERBATION OF CHF, CARDIOMYOPATHY Noncompliant with diuretics at home History of ischemic cardiomyopathy MVCAD on cath 07/2024 Stress test with infarction pattern, 02/2024 Ejection fraction of 15 to 20%, 06/2024 On diuresis with Bumex, 06/2024 Normal venous Dopplers, 06/2024 DVT diagnosed 07/2024 NSTEMI Initial troponin of 1600, trending down HEMATURIA Moderate hematuria, 06/2024 CHRONIC KIDNEY DISEASE Stage III 2.3 at presentation Creatinine at discharge from hospital, 06/2024 was 2.2 HYPERTENSION HYPERLIPIDEMIA DIABETES, TOBACCO USE CORE MEASURES Not on guideline directed medical therapy for cardiomyopathy given renal dysfunction OTHER MEDICAL PROBLEMS Anxiety disorder Diabetic neuropathy PLAN 07/25/2024 Agree with IV diuresis for cardiomyopathy will also start him on a small dose of dobutamine to help with diuresis. Discussed possible bypass with the patient again today but at this time, patient still is hesitant because of risk of bleeding and possible worsening ocular changes. Troponin elevation and recurrent myocardial injury in the setting of recurrent CHF and prolonged prognosis in the setting was all discussed but patient is still considering options. 07/26/2024 Feeling better, diuresing well, edema has improved, a DVT was identified in his popliteal and patient has previously refused anticoagulation because of risk of bleeding into his eye and also vision. Plan for IVC for replacement later today. Currently, otherwise, breathing better. Ambulating well. Had another conversation today about surgery, risk of bleeding risk of sudden cardiac in the setting of underlying cardiomyopathy, long-term management of DVT etc. patient is thinking about options at this time. Remains on dobutamine, continue. Renal function today has been pretty much stable compared to yesterday. ATTESTATION I was involved substantially in the care of this patient Number and complexity of problems addressed 1 illness withs evere exacerbation Amount and or complexity of data Review of prior external note(s) from each unique source - Number 2+_ Ordering of each unique test - Number 0 Review of the result(s) of each unique test - Number 2+ Assessment requiring an independent historian(s) No Independent interpretation of test performed by another MD/QHCP/appropriate source (not separately reported) No Discussion of management or test interpretation with external MD/QHCP/appropriate source (not separately reported) No Risk status (cardiac, billing related) high Vitals/Labs Vital Signs Date Time Temp Pulse Resp B/P (MAP) Pulse Ox O2 Delivery O2 Flow Rate FiO2 07/26/24 11:00 98.1 74 20 131/74 100 Room Air 07/26/24 08:00 0 21 Laboratory Tests 07/26/24 04:13 Medications Current Medications Metoclopramide HCl 10 mg ONCE ONCE IVP Last administered on 07/24/24at 21:10; Start 07/24/24 at 19:00; Stop 07/24/24 at 19:01; Status DC Pantoprazole Sodium 40 mg ONCE ONCE IVP Last administered on 07/24/24at 21:10; Start 07/24/24 at 19:00; Stop 07/24/24 at 19:01; Status DC Aspirin 325 mg ONCE ONCE PO Last administered on 07/24/24at 21:11; Start 07/24/24 at 19:00; Stop 07/24/24 at 19:01; Status DC Furosemide 40 mg ONCE ONCE IV Last administered on 07/24/24at 21:11; Start 07/24/24 at 19:00; Stop 07/24/24 at 19:01; Status DC Insulin Human Regular 5 unit ONCE ONCE IV Last administered on 07/24/24at 22:31; Start 07/24/24 at 20:00; Stop 07/24/24 at 20:01; Status DC Ondansetron HCl 4 mg Q6H PRN IV; Start 07/24/24 at 23:00; Stop 08/23/24 at 22:59 Zolpidem Tartrate 5 mg HS PRN PO Last administered on 07/25/24at 03:50; Start 07/24/24 at 23:00; Stop 08/23/24 at 22:59 Lactulose 20 gm BID PRN PO; Start 07/24/24 at 23:00; Stop 08/23/24 at 22:59 Nitroglycerin 0.4 mg PROTOCOL PRN SL; Start 07/24/24 at 23:00; Stop 08/23/24 at 22:59 Famotidine 20 mg DAILY PO Last administered on 07/26/24at 10:59; Start 07/25/24 at 09:00; Stop 08/24/24 at 08:59 Hydralazine HCl 10 mg Q6H PRN IV; Start 07/24/24 at 23:00; Stop 08/23/24 at 22:59 Insulin Human Regular INSULIN SLIDING SCAL... ACHS SQ Last administered on 07/25/24at 21:03; Start 07/25/24 at 07:30; Stop 08/24/24 at 07:29 Dextrose 50 ml AD PRN IV; Start 07/24/24 at 23:00; Stop 08/23/24 at 22:59 Glucagon 1 mg AD PRN IM; Start 07/24/24 at 23:00; Stop 08/23/24 at 22:59 Magnesium Sulfate 50 ml @ 0 mls/hr PROTOCOL PRN IV; Start 07/24/24 at 23:00; Stop 08/23/24 at 22:59 Potassium Chloride 100 ml @ 100 mls/hr AD PRN IV; Start 07/24/24 at 23:00; Stop 08/23/24 at 22:59 Potassium Chloride 20 meq AD PRN PO; Start 07/24/24 at 23:00; Stop 08/23/24 at 22:59 Potassium Chloride 20 meq AD PRN PO; Start 07/24/24 at 23:00; Stop 08/23/24 at 22:59 Aspirin 81 mg DAILY PO Last administered on 07/26/24at 10:59; Start 07/25/24 at 09:00; Stop 08/24/24 at 08:59 Atorvastatin Calcium 20 mg HS PO Last administered on 07/25/24at 20:39; Start 07/25/24 at 21:00; Stop 08/24/24 at 20:59 Losartan Potassium 25 mg DAILY PO Last administered on 07/26/24at 10:59; Start 07/25/24 at 09:00; Stop 08/24/24 at 08:59 Levothyroxine Sodium 50 mcg SYN PO Last administered on 07/26/24at 05:38; Start 07/25/24 at 06:30; Stop 08/24/24 at 06:29 Metoprolol Succinate 50 mg DAILY PO Last administered on 07/26/24at 10:59; Start 07/25/24 at 09:00; Stop 08/24/24 at 08:59 Chlorpromazine HCl 25 mg ONCE ONCE PO Last administered on 07/25/24at 00:13; Start 07/24/24 at 00:00; Stop 07/24/24 at 23:37; Status DC Furosemide 20 mg Q8H IV Last administered on 07/26/24at 11:03; Start 07/25/24 at 03:30; Stop 08/24/24 at 03:29 Ceftriaxone Sodium 1 gm Q24H IVPB Last administered on 07/25/24at 14:08; Start 07/25/24 at 14:00; Stop 08/04/24 at 13:59 Hydroxyzine HCl 25 mg TID PRN PO; Start 07/25/24 at 14:00; Stop 08/24/24 at 13:59 Dobutamine HCl/ Dextrose 250 ml @ 0 mls/hr PROTOCOL IV Last administered on 07/25/24at 17:45; Start 07/25/24 at 16:30; Stop 08/24/24 at 16:29 Pharmacy Profile Note 1 each AD MISC; Start 07/25/24 at 18:30; Stop 07/26/24 at 07:14; Status DC Acetaminophen 325 mg STK-MED ONCE .ROUTE; Start 07/25/24 at 20:21; Stop 07/25/24 at 20:21; Status DC Acetaminophen 650 mg Q6H PRN PO Last administered on 07/25/24at 20:39; Start 07/25/24 at 20:30; Stop 08/24/24 at 20:29 GUSTAVO PRUITT MD Jul 26, 2024 12:58
--- NOTE | 2024-07-26 14:22 | HMCIMG ---
CHEST 1VW HISTORY: Follow-up COMPARISON: 07/24/2024 FINDINGS: A frontal projection of the chest was obtained. Mild bilateral pulmonary infiltrates are seen may be related to mild pulmonary vascular congestion with possible superimposed pneumonitis. The heart is borderline enlarged. Degenerative changes are seen. No evidence of aortic calcification is seen. IMPRESSION: 1. Mild bilateral pulmonary infiltrates are seen may be related to mild pulmonary vascular congestion with possible superimposed pneumonitis.
[2024-07-27] VITALS (8 sets, daily range): BP systolic 110–121; BP diastolic 59–77; PULSE 60–93; RESP 20; TEMP 97–97.9; O2SAT 97–98
[2024-07-27 04:33] LABS: BASOPHILS # (AUTO) 0.05 K/uL (0.00-0.20); BASOPHILS % (AUTO) 0.6 % (0.0-5.0); EOSINOPHILS # (AUTO) 0.23 K/uL (0.00-0.70); EOSINOPHILS % (AUTO) 2.7 % (0.0-8.0); HEMATOCRIT 34.5 % (42-54); IMMATURE GRANULOCYTE ABSOLUTE 0.02 K/uL (0-1); LYMPHOCYTES # (AUTO) 1.1 K/uL (1.0-4.8); LYMPHOCYTES % (AUTO) 13.4 % (21.0-51.0); MEAN CORPUSCULAR HGB CONC 32.5 g/dL (32.0-36.0); MEAN CORPUSCULAR VOLUME 83.1 fL (79-99); NEUTROPHILS % (AUTO) 71.1 % (40.0-77.0); PLATELET COUNT (AUTO) 254 K/uL (130-400); RED BLOOD CELL COUNT(AUTO) 4.15 MIL/uL (4.50-6.20); RED CELL DISTRIBUTION WIDTH 16.7 % (11.0-15.5); WHITE BLOOD COUNT (AUTO) 8.4 K/uL (4.8-10.8)
[2024-07-27 04:49] LABS: ALBUMIN 2.4 g/dL (3.5-5.0); BILIRUBIN,TOTAL 0.7 mg/dL (0.2-1.0); CREATININE 2.1 mg/dL (0.5-1.3); MAGNESIUM 1.8 mg/dL (1.80-2.40); POTASSIUM 3.7 mmol/L (3.5-5.1); TOTAL PROTEIN, SERUM 7.6 g/dL (6.0-8.3)
[2024-07-27] MEDS: MAGNESIUM 2GM PREMIX 50ML 50 ML IV PRN (05:18)
[2024-07-27] MEDS: PoTASSium chloRIDE 20MEQ ER 20 MEQ ERTAB PO PRN (05:18)
--- NOTE | 2024-07-27 07:59 | PN ---
[facility] PROGRESS NOTE Date of Service: Jul 27, 2024 Time of Service: 07:57 SUBJECTIVE: [ ] This is a 64-year-old male,he is inhouse arrest with left ankle monitory with past medical history of CKD, diabetes, hypertension, congestive heart failure with ischemic cardiomyopathy, hyperlipidemia, hypothyroidism and multivessel coronary artery disease who presents to the ED for complaints of lower extremity swelling, shortness of breath, chest soreness started for the past four days. Patient reports she was admitted last July 04, 2024 for a diagnosis of CHF and non-STEMI and patient underwent a left heart catheterization where he was found to have multivessel coronary artery disease and at the time a recommendation for surgical revascularization was offered to him and he deferred because he wants to be seen by an opthalmologist due to his retinal bleeding which he was so concerned of losing his eyesight and he was discharged home he said on 07/14/2024. 07/25/24 Patient seen and examied with Dr Guerra in ER holding: Patient continues with dyspnea with minimal exertion. Noted cellulitis to right lower extremity was started the patient on Rocephin1 g Dopplers to rule out DVT. Patient also complained of hiccups we will start him on [id number] mg t.i.d. PRN for anxiety in hiccups. 07/26/24 patient is seen and examined in PCCU with Dr. Guerra. Reviewed chart: Patient is sitting on the edge of the bed fully awake alert oriented x3. imaging venous Doppler: . Noncompressible thrombus is seen in the right popliteal vein consistent with deep venous thrombosis. Patient is not a candidate for anticoagulation therapy given to Recent bilateral vitreous hemorrhage; therefore we will schedule IR for IVC filter. Patient was seen by heavy equipment engine mechanic's appreciate their input started patient on a small dose of dopamine for diuresis. Patient weight 87.1 Kg On admission 81.6 kg. 07/27/24 patient is seen and examined with Dr. Guerra reviewed chart. IVC filter was rescheduled for today. Remains on dobutamine, continue. Per heavy equipment engine mechanic's. Renal function back to baseline 2.1. Patient is fully awake. Edema to lower extremities improving. Denied chest pain or shortness for breath. REVIEW OF SYSTEMS CONSTITUTIONAL: Denies fevers, chills, or night sweats. No unintentional weight loss reported. NEUROLOGICAL: Denies headache, amaurosis fugax, motor weakness, sensory deficit, vertigo/spinning sensation, gait abnormalities, or tremors. ENT: No hearing loss, otalgia, otorrhea, rhinitis, rhinorrhea, hoarseness, or sore throat. CARDIOVASCULAR: Hiccups associated with chest soreness Denies any exertional angina, dyspnea on exertion, orthopnea, paroxysmal nocturnal dyspnea, palpitations, life-threatening arrhythmias, claudication. PULMONARY: Hiccups associated with Shortness of breath Denies any shortness of breath, cough, phlegm/sputum, hemoptysis, pleuritic chest pain. SLEEP: Denies morning headaches, daytime somnolence or napping. Denies difficul ty falling asleep, staying asleep, waking from sleep. Denies knowledge of snoring. GASTROINTESTINAL: Denies any type of dysphagia to either liquids or solids. Denies nausea, vomiting, pyrosis, early satiety, abdominal pain, diarrhea, constipation, or changes in stool consistency or caliber. Denies coffee-ground emesis, hematemesis, hematochezia, or melanotic stools. GENITOURINARY: Denies frequency, urgency, nocturia, hematuria or incontinence (Storage/Irritative symptoms.) Low urinary stream, straining to void, urinary intermittency or hesitancy, splitting of the voiding stream, terminal dribbling. ENDOCRINOLOGIC: Denies polyuria, polydipsia, polyphagia or heat/cold intole rances. HEMATOLOGIC: Denies thrombophilia/previous clots, or coagulopathy/bleeding disorders. ONCOLOGIC: Denies personal history of malignancy. DERMATOLOGIC: Denies rashes or pruritus. PSYCHIATRIC: Denies any suicidal or homicidal ideation. Denies hallucinations. PHYSICAL EXAM GENERAL APPEARANCE: The patient is awake, alert, and oriented, in no acute cardiopulmonary distress. NEUROLOGICAL: Cranial nerves II-XII grossly intact. Motor is 5/5 in bilateral upper and lower extremities proximal to distal. No sensory deficits. HEENT: Face is symmetric. Pupils are equal and reactive. Extraocular movements are intact. NECK: Supple. No JVD. No thyromegaly. No submental, submandibular, pre- /postauricular, occipital or supraclavicular lymphadenopathy. CHEST: Normal chest expansion. No Telemetry. LUNGS: Absence of any rales, rhonchi or any wheezing. CARDIOVASCULAR: Regular. S1 and S2 normal. No appreciable rubs, murmurs or gallops. ABDOMEN: Soft, nontender, and nondistended. There is no rebound, voluntary guarding, or rigidity. : Deferred. No Guillermo. EXTREMITIES: 2+ edema to bilateral lower extremities SKIN: No skin breakdown. Vital Signs (last 8hr) Date Time Temp Pulse Resp B/P (MAP) Pulse Ox O2 Delivery O2 Flow Rate FiO2 07/27/24 04:04 97.9 68 20 110/77 100 Room Air LABS: Laboratory: Test 07/27/24 05:58 07/27/24 04:23 07/26/24 16:10 07/25/24 11:02 Range/Units Whole Blood Glucose 100 # 70-110 MG/DL White Blood Count 8.4 4.8-10.8 K/uL Red Blood Count 4.15 L 4.50-6.20 MIL/uL Hemoglobin 11.2 L 14.0-18.0 g/dL Hematocrit 34.5 L 42-54 % Mean Corpuscular Volume 83.1 79-99 fL Mean Corpuscular Hemoglobin 27.0 27.0-33.0 pg Mean Corpuscular Hemoglobin Concent 32.5 32.0-36.0 g/dL Red Cell Distribution Width 16.7 H 11.0-15.5 % Platelet Count 254 130-400 K/uL Mean Platelet Volume 10.2 7.5-10.5 fL Immature Granulocyte % (Auto) 0.2 0-1 % Neutrophils (%) (Auto) 71.1 40.0-77.0 % Lymphocytes (%) (Auto) 13.4 L 21.0-51.0 % Monocytes (%) (Auto) 12.0 3.0-13.0 % Eosinophils (%) (Auto) 2.7 0.0-8.0 % Basophils (%) (Auto) 0.6 0.0-5.0 % Neutrophils # (Auto) 6.0 1.8-7.7 K/uL Lymphocytes # (Auto) 1.1 1.0-4.8 K/uL Monocytes # (Auto) 1.0 0.1-1.0 K/uL Eosinophils # (Auto) 0.23 0.00-0.70 K/uL Basophils # (Auto) 0.05 0.00-0.20 K/uL Absolute Immature Granulocyte (auto 0.02 0-1 K/uL Nucleated Red Blood Cells 0.0 0.0-0.19 % Sodium Level 136 136-145 mmol/L Potassium Level 3.7 3.5-5.1 mmol/L Chloride Level 99 L 101-111 mmol/L Carbon Dioxide Level 30 21-32 mmol/L Blood Urea Nitrogen 49 H 7-18 mg/dL Creatinine 2.1 H 0.5-1.3 mg/dL Glomerular Filtration Rate Calc 35 >90 mL/min Random Glucose 92 70-105 mg/dL Total Calcium 8.5 8.5-10.1 mg/dL Magnesium Level 1.80 1.80-2.40 mg/dL Total Bilirubin 0.7 0.2-1.0 mg/dL Aspartate Amino Transf (AST/SGOT) 44 H 10-37 U/L Alanine Aminotransferase (ALT/SGPT) 35 12-78 U/L Alkaline Phosphatase 198 H 50-136 U/L Total Protein 7.6 6.0-8.3 g/dL Albumin 2.4 L 3.5-5.0 g/dL Bedside Glucose Comment Notified Nurse Troponin I High Sensitivity 1895 *H 4-75 ng/L Current Medications Medications (Trade) Dose Ordered Sig/Anjelica Route PRN Reason Start Time Stop Time Status Last Admin Dose Admin Acetaminophen (TYLenol 325MG TAB) 650 mg Q6H PRN PO MILD PAIN (1-3) 07/25/24 20:30 08/24/24 20:29 07/26/24 23:35 650 MG Aspirin (Aspirin 81mg Ec Tab) 81 mg DAILY PO 07/25/24 09:00 08/24/24 08:59 07/26/24 10:59 81 MG Atorvastatin Calcium (LIPItor 20MG) 20 mg HS PO 07/25/24 21:00 08/24/24 20:59 07/26/24 22:07 20 MG Ceftriaxone Sodium (ROCEphine 1G INJ) 1 gm Q24H IVPB 07/25/24 14:00 08/04/24 13:59 07/26/24 14:11 1 GM Dextrose (D50w) 50 ml AD PRN IV HYPOGLYCEMIA PROTOCOL 07/24/24 23:00 08/23/24 22:59 Dobutamine HCl/ Dextrose 250 ml @ 0 mls/hr PROTOCOL IV 07/25/24 16:30 08/24/24 16:29 07/26/24 19:11 13.06 MLS/HR Famotidine (Pepcid 20mg Tab) 20 mg DAILY PO 07/25/24 09:00 08/24/24 08:59 07/26/24 10:59 20 MG Furosemide (LASix 20MG VIAL) 20 mg Q8H IV 07/25/24 03:30 08/24/24 03:29 07/27/24 04:28 20 MG Glucagon (Glucagon 1mg Kit) 1 mg AD PRN IM HYPOGLYCEMIA PROTOCOL 07/24/24 23:00 08/23/24 22:59 Hydralazine HCl (APRESOLine 20MG INJ) 10 mg Q6H PRN IV For:SBP above 160;DBP above 90 07/24/24 23:00 08/23/24 22:59 Hydroxyzine HCl (ATArax 25MG TAB) 25 mg TID PRN PO ITCHING 07/25/24 14:00 08/24/24 13:59 Insulin Human Regular (humuLIN R 100 UNIT/ML 3ML) INSULIN SLIDING SCAL... ACHS SQ 07/25/24 07:30 08/24/24 07:29 07/26/24 22:08 4 UNIT Lactulose (Constulose 20gm/ 30ml Udcup) 20 gm BID PRN PO CONSTIPATION 07/24/24 23:00 08/23/24 22:59 Levothyroxine Sodium (SYNTHroid 50MCG TAB) 50 mcg SYN PO 07/25/24 06:30 08/24/24 06:29 07/27/24 05:18 50 MCG Losartan Potassium (CozAAR 25MG TAB) 25 mg DAILY PO 07/25/24 09:00 08/24/24 08:59 07/26/24 10:59 25 MG Magnesium Sulfate 50 ml @ 0 mls/hr PROTOCOL PRN IV OTHER [SEE ORDER COMMENTS] 07/24/24 23:00 08/23/24 22:59 07/27/24 05:18 25 MLS/HR Metoprolol Succinate (TopROL XL) 50 mg DAILY PO 07/25/24 09:00 08/24/24 08:59 07/26/24 10:59 50 MG Nitroglycerin (Nitrostat) 0.4 mg PROTOCOL PRN SL CHEST PAIN 07/24/24 23:00 08/23/24 22:59 Ondansetron HCl (zoFRAN 4MG INJ) 4 mg Q6H PRN IV NAUSEA/VOMITING 07/24/24 23:00 08/23/24 22:59 Pharmacy Profile Note (Pharmacy Communication) 1 each AD MISC 07/25/24 18:30 07/26/24 07:14 DC Potassium Chloride 100 ml @ 100 mls/hr AD PRN IV POTASSIUM PROTOCOL 07/24/24 23:00 08/23/24 22:59 Potassium Chloride (K-Dur/Klor-Con 20meq) 20 meq AD PRN PO POTASSIUM PROTOCOL 07/24/24 23:00 08/23/24 22:59 07/27/24 05:18 20 MEQ Potassium Chloride (KCl 10% Elixir 20meq/15ml) 20 meq AD PRN PO POTASSIUM PROTOCOL 07/24/24 23:00 08/23/24 22:59 Zolpidem Tartrate (AmbIEN) 5 mg HS PRN PO INSOMNIA 07/24/24 23:00 08/23/24 22:59 07/25/24 03:50 5 MG DIAGNOSTICS / RADIOLOGY: [ ] ASSESSMENT: CHF exacerbation with ischemic cardiomyopathy POA POA Non STEMI POA Cellulitis right lower extremity POA Hyperglycemia secondary to uncontrolled diabetes POA Pseudohyponatremia due to hyperglycemia POA Chronic kidney disease POA Cardiac renal syndrome Anemia due to CKD POA Anxiety disorder POA Hiccup episodes POA improved Multivessel coronary artery disease POA Hypertension POA Hyperlipidemia POA Recent bilateral vitreous hemorrhage POA Diabetic retinopathy and neuropathy POA Noncompliance with medication Lasix POA . Noncompressible thrombus is seen in the right popliteal vein consistent with deep venous thrombosis. not a candidate for anticoagulation therapy POA PLAN: PCCU unit [employer] Control Clerk's remains dobutamine drip small dose. aspirin 81 mg p.o. per home dose and statin therapy.metoprolol 50 mg p.o. daily Continue with diuretics Lasix 20 mg IV every8 hours, Continue levothyroxine 50 mcg p.o. daily per home dose Continue fluid restriction strict I&Os daily weight Doppler venous noted IR for IVC filter today Rocephin 1 g every24 hours, baseline creatinine 2.0. Strict I&Os Replace electrolytes to keep potassium above 4.0 magnesium above 2.0. Continue insulin sliding scale AC & HS with hypoglycemia protocol Continue prn medication for fever,pain,nausea and vomiting Atarax 25 mg t.i.d. PRN for anxiety and hiccups. Further orders to follow depending on above results Case discussed with attending physician and came up with above treatment and plan of care. ATTESTATION BY PHYSICIAN I have seen and examined the patient. I reviewed the documentation, medical decision making, and treatment plan as noted by the mid-level provider above. I agree with the findings and plan of care. GARRY GUERRA MD, ELIZABETH NP Jul 27, 2024 07:59
--- NOTE | 2024-07-27 13:36 | HMCIMG ---
NM PULMONARY/LUNG VQ SCAN HISTORY: Pulmonary embolism COMPARISON: None TECHNIQUE: Ventilation study was performed with 8 mCi of Xenon gas through inhalation route. Perfusion lung imaging study was performed with 4.5 mCi of technetium macroaggregated through intravenous route. FINDINGS: There is no evidence of segmental or subsegmental perfusion defect. Nonsegmental perfusion defects are also present. IMPRESSION: 1. Normal ventilation perfusion lung imaging study.
[2024-07-27] MEDS ORDERED: IOHEXOL-350 75 ML VIAL IV ONE (15:50)
[2024-07-27] MEDS ORDERED: LIDOCAINE HCL 400MG/20ML VIAL ONE (15:50)
[2024-07-27] MEDS ORDERED: HEParin-NS 1,000 UNIT/500 ML 500 ML IV ONE (15:50)
--- NOTE | 2024-07-27 16:35 | NUR ---
PATIENT HAS RETURNED FROM [facility] WITH [facility]. RIGHT JUGULAR INSERTION SITE IS CLEAN AND INTACT. NO BLEEDING NOR HEMATOMA NOTED. PATIENT IS AAOX4 AND DENIES PAIN AT THIS TIME. TELEPAK WAS PLACED BACK ON AND POST-OP VITAL SIGNS HAS BEEN INITIATED. I WILL CONTINUE TO MONITOR.
[2024-07-27] MEDS: BENZONATATE 100 MG CAPSULE PO PRN (18:59)
--- NOTE | 2024-07-27 19:16 | PN ---
Reason for consult: CHF HPI/story at presentation: This is a pleasant 64-year-old male with past medical history of the present with complaints of shortness of breath, was diagnosed with CHF exacerbation cardiology was consulted for further evaluation management. Known history of cardiomyopathy, ejection fraction 15 to 20% with previous stress testing with no ischemia or infarction pattern, 02/2024 he has been noncompliant with Lasix at home, here for further eval, had a Cdone last admission with MVCAD, However, patient has been refusing bypass because of need of anticoagulation preoperatively. Subjective: 07/25/2024 sob, edema 07/26/2024 breathing better 07/27/2024 no complaints Past medical history: See below Allergies, Meds See chart Review of systems Review of Systems Constitutional: Negative for chills and fever. HENT: Negative for ear discharge and ear pain. Eyes: Negative for photophobia and discharge. Respiratory: Negative for cough, sputum production and stridor. Cardiovascular: Negative for chest pain and palpitations. Gastrointestinal: Negative for diarrhea and vomiting. Genitourinary: Negative for frequency. Musculoskeletal: Negative for myalgias. Skin: Negative for rash. Neurological: Negative for focal weakness and seizures. Endo/Heme/Allergies: Negative for polydipsia. Psychiatric/Behavioral: Negative for hallucinations. Vitals see chart PHYSICAL EXAMINATION GENERAL: The patient is alert and oriented*3 HEENT: Nonicteric sclerae, non traumatic HEART: Regular rate and rhythm with no murmurs LUNGS: Clear to auscultation bilaterally ABDOMEN: No acute issues, non tender GENITAL, RECTAL: deferred SKIN: No rash NEUROLOGIC: NFND EXTREMITIES:EDEMA 07/2024 ASSESSMENT EXACERBATION OF CHF, CARDIOMYOPATHY Noncompliant with diuretics at home History of ischemic cardiomyopathy MVCAD on cath 07/2024 Stress test with infarction pattern, 02/2024 Ejection fraction of 15 to 20%, 06/2024 On diuresis with Bumex, 06/2024 Normal venous Dopplers, 06/2024 DVT diagnosed 07/2024 NSTEMI Initial troponin of 1600, trending down HEMATURIA Moderate hematuria, 06/2024 CHRONIC KIDNEY DISEASE Stage III 2.3 at presentation Creatinine at discharge from hospital, 06/2024 was 2.2 HYPERTENSION HYPERLIPIDEMIA DIABETES, TOBACCO USE CORE MEASURES Not on guideline directed medical therapy for cardiomyopathy given renal dysfunction OTHER MEDICAL PROBLEMS Anxiety disorder Diabetic neuropathy PLAN 07/25/2024 Agree with IV diuresis for cardiomyopathy will also start him on a small dose of dobutamine to help with diuresis. Discussed possible bypass with the patient again today but at this time, patient still is hesitant because of risk of bleeding and possible worsening ocular changes. Troponin elevation and recurrent myocardial injury in the setting of recurrent CHF and prolonged prognosis in the setting was all discussed but patient is still considering options. 07/26/2024 Feeling better, diuresing well, edema has improved, a DVT was identified in his popliteal and patient has previously refused anticoagulation because of risk of bleeding into his eye and also vision. Plan for IVC for replacement later today. Currently, otherwise, breathing better. Ambulating well. Had another conversation today about surgery, risk of bleeding risk of sudden cardiac in the setting of underlying cardiomyopathy, long-term management of DVT etc. patient is thinking about options at this time. Remains on dobutamine, continue. Renal function today has been pretty much stable compared to yesterday. 07/27/2024 Breathing better, remains on dobutamine, urine output is good. Patient s/p IVC filter placement today. Renal function stable at 2.1. Had another conversation with him today about bypass. If he decides not to proceed with this, can likely be discharged home tomorrow on oral diuretics. ATTESTATION I was involved substantially in the care of this patient Number and complexity of problems addressed 1 illness withs evere exacerbation Amount and or complexity of data Review of prior external note(s) from each unique source - Number 2+_ Ordering of each unique test - Number 0 Review of the result(s) of each unique test - Number 2+ Assessment requiring an independent historian(s) No Independent interpretation of test performed by another MD/QHCP/appropriate source (not separately reported) No Discussion of management or test interpretation with external MD/QHCP/appropriate source (not separately reported) No Risk status (cardiac, billing related) high Vitals/Labs Vital Signs Date Time Temp Pulse Resp B/P (MAP) Pulse Ox O2 Delivery O2 Flow Rate FiO2 07/27/24 16:35 97.0 81 20 121/77 99 Room Air 07/27/24 08:00 0 21 Laboratory Tests 07/27/24 04:23 Medications Current Medications Metoclopramide HCl 10 mg ONCE ONCE IVP Last administered on 07/24/24at 21:10; Start 07/24/24 at 19:00; Stop 07/24/24 at 19:01; Status DC Pantoprazole Sodium 40 mg ONCE ONCE IVP Last administered on 07/24/24at 21:10; Start 07/24/24 at 19:00; Stop 07/24/24 at 19:01; Status DC Aspirin 325 mg ONCE ONCE PO Last administered on 07/24/24at 21:11; Start 07/24/24 at 19:00; Stop 07/24/24 at 19:01; Status DC Furosemide 40 mg ONCE ONCE IV Last administered on 07/24/24at 21:11; Start 07/24/24 at 19:00; Stop 07/24/24 at 19:01; Status DC Insulin Human Regular 5 unit ONCE ONCE IV Last administered on 07/24/24at 22:31; Start 07/24/24 at 20:00; Stop 07/24/24 at 20:01; Status DC Ondansetron HCl 4 mg Q6H PRN IV; Start 07/24/24 at 23:00; Stop 08/23/24 at 22:59 Zolpidem Tartrate 5 mg HS PRN PO Last administered on 07/25/24at 03:50; Start 07/24/24 at 23:00; Stop 08/23/24 at 22:59 Lactulose 20 gm BID PRN PO; Start 07/24/24 at 23:00; Stop 08/23/24 at 22:59 Nitroglycerin 0.4 mg PROTOCOL PRN SL; Start 07/24/24 at 23:00; Stop 08/23/24 at 22:59 Famotidine 20 mg DAILY PO Last administered on 07/27/24at 08:27; Start 07/25/24 at 09:00; Stop 08/24/24 at 08:59 Hydralazine HCl 10 mg Q6H PRN IV; Start 07/24/24 at 23:00; Stop 08/23/24 at 22:59 Insulin Human Regular INSULIN SLIDING SCAL... ACHS SQ Last administered on 07/26/24at 22:08; Start 07/25/24 at 07:30; Stop 08/24/24 at 07:29 Dextrose 50 ml AD PRN IV; Start 07/24/24 at 23:00; Stop 08/23/24 at 22:59 Glucagon 1 mg AD PRN IM; Start 07/24/24 at 23:00; Stop 08/23/24 at 22:59 Magnesium Sulfate 50 ml @ 0 mls/hr PROTOCOL PRN IV Last administered on 07/27/24at 10:33; Start 07/24/24 at 23:00; Stop 08/23/24 at 22:59 Potassium Chloride 100 ml @ 100 mls/hr AD PRN IV; Start 07/24/24 at 23:00; Stop 08/23/24 at 22:59 Potassium Chloride 20 meq AD PRN PO; Start 07/24/24 at 23:00; Stop 08/23/24 at 22:59 Potassium Chloride 20 meq AD PRN PO Last administered on 07/27/24at 08:28; Start 07/24/24 at 23:00; Stop 08/23/24 at 22:59 Aspirin 81 mg DAILY PO Last administered on 07/26/24at 10:59; Start 07/25/24 at 09:00; Stop 08/24/24 at 08:59 Atorvastatin Calcium 20 mg HS PO Last administered on 07/26/24at 22:07; Start 07/25/24 at 21:00; Stop 08/24/24 at 20:59 Losartan Potassium 25 mg DAILY PO Last administered on 07/27/24at 08:27; Start 07/25/24 at 09:00; Stop 08/24/24 at 08:59 Levothyroxine Sodium 50 mcg SYN PO Last administered on 07/27/24at 05:18; Start 07/25/24 at 06:30; Stop 08/24/24 at 06:29 Metoprolol Succinate 50 mg DAILY PO Last administered on 07/27/24at 08:27; Start 07/25/24 at 09:00; Stop 08/24/24 at 08:59 Chlorpromazine HCl 25 mg ONCE ONCE PO Last administered on 07/25/24at 00:13; Start 07/24/24 at 00:00; Stop 07/24/24 at 23:37; Status DC Furosemide 20 mg Q8H IV Last administered on 07/27/24at 10:32; Start 07/25/24 at 03:30; Stop 08/24/24 at 03:29 Ceftriaxone Sodium 1 gm Q24H IVPB Last administered on 07/27/24at 13:52; Start 07/25/24 at 14:00; Stop 08/04/24 at 13:59 Hydroxyzine HCl 25 mg TID PRN PO; Start 07/25/24 at 14:00; Stop 08/24/24 at 13:59 Dobutamine HCl/ Dextrose 250 ml @ 0 mls/hr PROTOCOL IV Last administered on 07/26/24at 19:11; Start 07/25/24 at 16:30; Stop 08/24/24 at 16:29 Pharmacy Profile Note 1 each AD MISC; Start 07/25/24 at 18:30; Stop 07/26/24 at 07:14; Status DC Acetaminophen 325 mg STK-MED ONCE .ROUTE; Start 07/25/24 at 20:21; Stop 07/25/24 at 20:21; Status DC Acetaminophen 650 mg Q6H PRN PO Last administered on 07/26/24at 23:35; Start 07/25/24 at 20:30; Stop 08/24/24 at 20:29 Fluticasone Propionate 1 SPRAY DAILY EN; Start 07/28/24 at 09:00; Stop 08/27/24 at 08:59 Benzonatate 100 mg Q8H PRN PO Last administered on 07/27/24at 18:59; Start 07/27/24 at 14:00; Stop 08/26/24 at 13:59 Lidocaine HCl 20 ml STK-MED ONCE .ROUTE; Start 07/27/24 at 15:50; Stop 07/27/24 at 15:50; Status DC Iohexol 75 ml STK-MED ONCE IV; Start 07/27/24 at 15:50; Stop 07/27/24 at 15:51; Status DC Heparin Sodium/ Sodium Chloride 500 ml @ As Directed STK-MED ONCE IV; Start 07/27/24 at 15:50; Stop 07/27/24 at 15:51; Status DC GUSTAVO PRUITT MD Jul 27, 2024 19:16
[2024-07-28 03:50] VITALS: BP 97/61; PULSE 93; RESP 17; TEMP 98.3
[2024-07-28 03:50] LABS: BASOPHILS # (AUTO) 0.06 K/uL (0.00-0.20); EOSINOPHILS # (AUTO) 0.25 K/uL (0.00-0.70); HEMATOCRIT 35.4 % (42-54); IMMATURE GRANULOCYTE ABSOLUTE 0.02 K/uL (0-1); LYMPHOCYTES % (AUTO) 16.2 % (21.0-51.0); MEAN CORPUSCULAR HEMOGLOBIN 27.2 pg (27.0-33.0); MEAN CORPUSCULAR HGB CONC 31.9 g/dL (32.0-36.0); MEAN CORPUSCULAR VOLUME 85.1 fL (79-99); MONOCYTES # (AUTO) 0.9 K/uL (0.1-1.0); MONOCYTES % (AUTO) 14.6 % (3.0-13.0); NEUTROPHILS % (AUTO) 63.9 % (40.0-77.0); PLATELET COUNT (AUTO) 231 K/uL (130-400); RED BLOOD CELL COUNT(AUTO) 4.16 MIL/uL (4.50-6.20); WHITE BLOOD COUNT (AUTO) 6.3 K/uL (4.8-10.8)
[2024-07-28 04:08] LABS: ALBUMIN 2.4 g/dL (3.5-5.0); BILIRUBIN,TOTAL 0.6 mg/dL (0.2-1.0); CREATININE 1.9 mg/dL (0.5-1.3); TOTAL PROTEIN, SERUM 7.4 g/dL (6.0-8.3)
[2024-07-28 07:34] VITALS: BP 126/79; PULSE 95; RESP 18; TEMP 98.3
[2024-07-28 08:00] VITALS: O2SAT 98
[2024-07-28] MEDS: fluTICasone proPIONate 50MCG/SPRAY 16 GM BOTTLE EN SCH (09:00)
--- NOTE | 2024-07-28 09:29 | OP ---
DATE OF PROCEDURE: 07/27/2024 PROCEDURES: * IVC gram. * Inferior vena cava filter placement. INDICATION: History of DVT and contraindication to anticoagulation. SURVEILLANCE INVESTIGATOR: Elliot Hickman MD TECHNIQUE: Informed consent was obtained after explaining the procedure and potential complications. The patient was placed supine on the angio table and timeout performed. All elements of maximal sterile barrier technique, including hand hygiene and cutaneous antisepsis were used. The area was prepped and draped in standard sterile fashion. Local anesthesia was applied and under ultrasound guidance, access was gained into the vein with a 21G needle. Then, over a wire, a filter deployment sheath was advanced into the caudal aspect of the inferior vena cava and inferior venacavogram was performed. This was followed by placement of a filter in the inferior vena cava, below the level of the renal veins. Completion venogram was performed. The sheath was removed and hemostasis was achieved at the entry site with manual compression. Sterile dressing was applied. TYPE OF FILTER: IVC filter placement. BLOOD LOSS: < 5 mL COMPLICATIONS: None. IMPRESSION: Uneventful placement of infrarenal IVC filter via the right internal jugular vein. TID: [id number] RECEIPT: [id number]
[2024-07-28 12:00] VITALS: BP 108/73; PULSE 81; RESP 20; TEMP 97.7
--- NOTE | 2024-07-28 12:06 | DS ---
Discharge Summary Hospital Course Summary: 64-year-old male,he is inhouse arrest with left ankle monitory with past medical history of CKD, diabetes, hypertension, congestive heart failure with ischemic cardiomyopathy, hyperlipidemia, hypothyroidism and multivessel coronary artery disease who presents to the ED for complaints of lower extremity s welling, shortness of breath, chest soreness started for the past four days. Patient reports she was admitted last July 04, 2024 for a diagnosis of CHF and non-STEMI and patient underwent a left heart catheterization where he was found to have multivessel coronary artery disease and at the time a recommendation for surgical revascularization was offered to him and he deferred because he wants to be seen by an opthalmologist due to his retinal bleeding which he was so concerned of losing his eyesight and he was discharged home he said on 07/14/2024.As per patient since he was sent home he has not taken any prescribed meds x 2 weeks because he run out and was not able to refill and he started noticing his bilateral lower extremities swelled up for the last 4 days and he started having frequent hiccups and because of the hiccups he said it causes him to be short of breath and having chest soreness. Seen and examined patient in the ED awake,alert and coherent,appears comfortable.Patient denies chills,fever,cough,palpitation ,abdominal pain,nausea and vomiting. Latest vital signs temperature 98.2, heart rate 107, blood pressure 114/75 saturation 100% on 2 L nasal cannula. Labs: Hemoglobin 11.5, hematocrit 36.5 platelet count 254. Sodium 133, chloride 99, BUN 53, creatinine 2.3, GFR 31, glucose 332, total calcium 8.4 troponin 2020 to 1990 to 2217 BNP 2970 . ECG result revealed sinus tachycardia heart rate 106 nonspecific T-wave abnormalities. chest x-ray result revealed mild bilateral pulmonary infiltrates are seen may be related to mild pulmonary vascular congestion with possible superimposed pneumonitis. While in the ER patient received insulin 5 units IV, Lasix 40 mg IV, aspirin 325 mg p.o., Protonix 40 mg IV Reglan 10 mg IV. Television Script Writer was consulted and agreed to evaluate the patient. We will admit patient for further medical management. Patient was admitted and he was started with dobutamine drip by pain management specialist. Patient was monitored closely and dobutamine drip has been titrated. Patient also had some cough for which Tessalon Perle was started and it improved his symptoms. Venous Doppler was done which was showed noncompressible thrombus seen in the right popliteal vein consistent of DVT, V/Q scan was done to rule out PE which showed normal ventilation perfusion lung imaging study. Patient is status post IVC filter placement secondary to DVT and contraindication to ant icoagulation. Patient tolerated the procedure well and he has been doing better. He has been cleared by the pain management specialist for which recommendations to follow up with him in one week. All home medications has been rewritten to a prescription. Discussed follow up with PCP and pain management specialist. Patient can be discharged home as he continued to be stable. Kitchen Help Handyman(s): Dr. Coyle- pain management specialist Procedure(s): [place] [address] [id number] IMAGING REPORT Signed PATIENT: RENATA BANERJEE MR#: [id number] : 1960 SEX: M AGE: 64 LOCATION: 2A ORDER 05 STATUS: ADM IN REPORT#: [id number] SERVICE 0600 REASON: RULE OUT PE ORDERING PHYSICIAN: BRIDGER MCCALL NP PROCEDURE: PULM VQ - NM PULMONARY/LUNG VQ SCAN NM PULMONARY/LUNG VQ SCAN HISTORY: Pulmonary embolism COMPARISON: None TECHNIQUE: Ventilation study was performed with 8 mCi of Xenon gas through inhalation route. Perfusion lung imaging study was performed with 4.5 mCi of technetium macroaggregated through intravenous route. FINDINGS: There is no evidence of segmental or subsegmental perfusion defect. Nonsegmental perfusion defects are also present. IMPRESSION: 1. Normal ventilation perfusion lung imaging study. DICTATED BY: BETH CORRIGAN MD DATE: 07/27/241332 ELECTRONICALLY SIGNED BY: BETH CORRIGAN MD DATE: 07/27/242 [place] [id number] [address] IMAGING REPORT Signed PATIENT: RENATA BANERJEE MR#: [id number] : 1960 SEX: M AGE: 64 LOCATION: 2AH ORDER 1103 STATUS: ADM IN REPORT#: [id number] SERVICE 1102 REASON: FOLLOW UP ORDERING PHYSICIAN: GARRY GUERRA MD PROCEDURE: CXR1VW - CHEST 1VW CHEST 1VW HISTORY: Follow-up COMPARISON: 07/24/2024 FINDINGS: A frontal projection of the chest was obtained. Mild bilateral pulmonary infiltrates are seen may be related to mild pulmonary vascular congestion with possible superimposed pneumonitis. The heart is borderline enlarged. Degenerative changes are seen. No evidence of aortic calcification is seen. IMPRESSION: 1. Mild bilateral pulmonary infiltrates are seen may be related to mild pulmonary vascular congestion with possible superimposed pneumonitis. DICTATED BY: BETH CORRIGAN MD DATE: 07/26/241418 ELECTRONICALLY SIGNED BY: BETH CORRIGAN MD DATE: 07/26/241421 [place] [address] [address] IMAGING REPORT Signed PATIENT: RENATA BANERJEE MR#: [id number] : 1960 SEX: M AGE: 64 LOCATION: EDHIP ORDER 1344 STATUS: ADM IN REPORT#: [id number] SERVICE 1342 REASON: lower ext swelling ORDERING PHYSICIAN: BRIDGER MCCALL NP PROCEDURE: VENOUS BENJA - US VENOUS DOPPLER BILATERAL US VENOUS DOPPLER BILATERAL HISTORY: Edema COMPARISON: None TECHNIQUE: Bilateral lower extremity venous Doppler ultrasound study was performed. FINDINGS: The common femoral, femoral, popliteal, and posterior tibial veins are visualized. Noncompressible thrombus is seen in the right popliteal vein consistent with deep venous thrombosis. Normal flow with augmentation and compressibilities are otherwise demonstrated. The greater saphenous veins are also seen and grossly patent. IMPRESSION: 1. Noncompressible thrombus is seen in the right popliteal vein consistent with deep venous thrombosis. DICTATED BY: BETH CORRIGAN MD DATE: 07/25/241555 ELECTRONICALLY SIGNED BY: BETH CORRIGAN MD DATE: 07/25/241558 [place] [address] [id number] IMAGING REPORT Signed PATIENT: RENATA BANERJEE MR#: [id number] : 1960 SEX: M AGE: 64 LOCATION: EDH ORDER 30 STATUS: REG ER REPORT#: [id number] SERVICE 28 REASON: SOB ORDERING PHYSICIAN: CHARLETTE CULLEN MD PROCEDURE: CXR1VW - CHEST 1VW CHEST 1VW HISTORY: Shortness of breath COMPARISON: 07/08/2024 FINDINGS: A frontal projection of the chest was obtained. Mild bilateral pulmonary infiltrates are seen may be related to mild pulmonary vascular congestion with possible superimposed pneumonitis. The heart is borderline enlarged. Degenerative changes are seen. Tortuosity of aorta is seen. IMPRESSION: 1. Mild bilateral pulmonary infiltrates are seen may be related to mild pulmonary vascular congestion with possible superimposed pneumonitis. DICTATED BY: BETH CORRIGAN MD DATE: 07/24/242234 ELECTRONICALLY SIGNED BY: BETH CORRIGAN MD DATE: 07/24/24223707/28/24- s/p IVC Filter by IR Assessment/Plan: Discharge diagnoses CHF exacerbation with ischemic cardiomyopathy POA POA Non STEMI POA Cellulitis right lower extremity POA Hyperglycemia secondary to uncontrolled diabetes POA Pseudohyponatremia due to hyperglycemia POA Chronic kidney disease POA Cardiac renal syndrome Anemia due to CKD POA Anxiety disorder POA Hiccup episodes POA improved Multivessel coronary artery disease POA Hypertension POA Hyperlipidemia POA Recent bilateral vitreous hemorrhage POA Diabetic retinopathy and neuropathy POA Noncompliance with medication Lasix POA . Noncompressible thrombus is seen in the right popliteal vein consistent with deep venous thrombosis. not a candidate for anticoagulation therapy POA Admitting diagnosis Discharge Instructions: Patient to be discharged home Follow up with PCP in 2-3 days Follow up with Dr. Regan in 1 week Home Medications: Active Scripts Nitroglycerin (Nitroglycerin) 0.4 Mg Tab.subl, 1 TAB SL AD for chest pain, #25 TAB 1 Refill 1st sign of attack; may repeat every 5 mins; if pain persists after 3 in 15 min, medical attention is recommended Prov:GARRY GUERRA MD 07/14/24 Latanoprost (Xalatan) 0.005 % Drops, 0 DROP OU HS for 30 Days, #1 DROP 1 Refill as directed Prov:GARRY GUERRA MD 07/14/24 Reported Medications Levothyroxine Sodium (Levothyroxine) 50 Mcg Capsule, 1 CAP PO DAILY for 30 Days, #30 CAP 0 Refills 07/04/24 Metoprolol Succinate (Metoprolol Succinate) 50 Mg Tab.er.24h, 1 TAB PO DAILY for 30 Days, #30 TAB 0 Refills 07/04/24 Meloxicam (Meloxicam) 15 Mg Tablet, 15 MG PO DAILY, TAB 07/04/24 Losartan Potassium (Losartan Potassium) 25 Mg Tablet, 1 TAB PO DAILY for 30 Days, #30 TAB 0 Refills 07/04/24 Famotidine (Famotidine) 20 Mg Tablet, 20 MG PO DAILY, TAB 07/04/24 Atorvastatin Calcium (Atorvastatin Calcium) 20 Mg Tablet, 20 MG PO HS, TAB 07/04/24 Aspirin (ASPIRIN 81 MG ECTAB) 81 Mg Ectab, 81 MG PO DAILY, TAB.EC 07/04/24 Time spent arranging discharge: 31-60 minutes ATTESTATION BY PHYSICIAN I have seen and examined the patient. I reviewed the documentation, medical decision making, and treatment plan as noted by the mid-level provider above. I agree with the findings and plan of care. GARRY GUERRA MD, [facility] Jul 28, 2024 12:06
--- NOTE | 2024-07-28 14:45 | NUR ---
NOTE DISCHARGE INSTRUCTIONS GIVEN TO PATIENT AND BROTHER. BOTH STATED UNDERSTANDING. ALL QUESTIONS ANSWERED.
--- NOTE | 2024-07-28 22:25 | PN ---
Reason for consult: CHF HPI/story at presentation: This is a pleasant 64-year-old male with past medical history of the present with complaints of shortness of breath, was diagnosed with CHF exacerbation cardiology was consulted for further evaluation management. Known history of cardiomyopathy, ejection fraction 15 to 20% with previous stress testing with no ischemia or infarction pattern, 02/2024 he has been noncompliant with Lasix at home, here for further eval, had a Cdone last admission with MVCAD, However, patient has been refusing bypass because of need of anticoagulation preoperatively. Subjective: 07/25/2024 sob, edema 07/26/2024 breathing better 07/27/2024 no complaints 07/28/2024 no complaints Past medical history: See below Allergies, Meds See chart Review of systems Review of Systems Constitutional: Negative for chills and fever. HENT: Negative for ear discharge and ear pain. Eyes: Negative for photophobia and discharge. Respiratory: Negative for cough, sputum production and stridor. Cardiovascular: Negative for chest pain and palpitations. Gastrointestinal: Negative for diarrhea and vomiting. Genitourinary: Negative for frequency. Musculoskeletal: Negative for myalgias. Skin: Negative for rash. Neurological: Negative for focal weakness and seizures. Endo/Heme/Allergies: Negative for polydipsia. Psychiatric/Behavioral: Negative for hallucinations. Vitals see chart PHYSICAL EXAMINATION GENERAL: The patient is alert and oriented*3 HEENT: Nonicteric sclerae, non traumatic HEART: Regular rate and rhythm with no murmurs LUNGS: Clear to auscultation bilaterally ABDOMEN: No acute issues, non tender GENITAL, RECTAL: deferred SKIN: No rash NEUROLOGIC: NFND EXTREMITIES:EDEMA 07/2024 ASSESSMENT EXACERBATION OF CHF, CARDIOMYOPATHY Noncompliant with diuretics at home History of ischemic cardiomyopathy MVCAD on cath 07/2024 Stress test with infarction pattern, 02/2024 Ejection fraction of 15 to 20%, 06/2024 On diuresis with Bumex, 06/2024 Normal venous Dopplers, 06/2024 DVT diagnosed 07/2024 NSTEMI Initial troponin of 1600, trending down HEMATURIA Moderate hematuria, 06/2024 CHRONIC KIDNEY DISEASE Stage III 2.3 at presentation Creatinine at discharge from hospital, 06/2024 was 2.2 HYPERTENSION HYPERLIPIDEMIA DIABETES, TOBACCO USE CORE MEASURES Not on guideline directed medical therapy for cardiomyopathy given renal dysfunction OTHER MEDICAL PROBLEMS Anxiety disorder Diabetic neuropathy PLAN 07/25/2024 Agree with IV diuresis for cardiomyopathy will also start him on a small dose of dobutamine to help with diuresis. Discussed possible bypass with the patient again today but at this time, patient still is hesitant because of risk of bleeding and possible worsening ocular changes. Troponin elevation and recurrent myocardial injury in the setting of recurrent CHF and prolonged prognosis in the setting was all discussed but patient is still considering options. 07/26/2024 Feeling better, diuresing well, edema has improved, a DVT was identified in his popliteal and patient has previously refused anticoagulation because of risk of bleeding into his eye and also vision. Plan for IVC for replacement later today. Currently, otherwise, breathing better. Ambulating well. Had another conversation today about surgery, risk of bleeding risk of sudden cardiac in the setting of underlying cardiomyopathy, long-term management of DVT etc. patient is thinking about options at this time. Remains on dobutamine, continue. Renal function today has been pretty much stable compared to yesterday. 07/27/2024 Breathing better, remains on dobutamine, urine output is good. Patient s/p IVC filter placement today. Renal function stable at 2.1. Had another conversation with him today about bypass. If he decides not to proceed with this, can likely be discharged home tomorrow on oral diuretics. 07/28/2024 Patient likely being discharged today, importance of compliance with medical therapy, outpatient follow-up discussed. Patient remains high risk for patient because of social situation, previous history of noncompliance etc. At this time, he does not want surgery until he gets Medicaid and sees an diesel mechanic farm, before considering bypass surgery. Potential risks including worsening of DVTs, underlying CAD/cardiomyopathy etc. discussed and patient understands risks of not proceeding with intervention but patient is hesitant as above. ATTESTATION I was involved substantially in the care of this patient Number and complexity of problems addressed 1 illness with severe exacerbation Amount and or complexity of data Review of prior external note(s) from each unique source - Number 2+_ Ordering of each unique test - Number 0 Review of the result(s) of each unique test - Number 2+ Assessment requiring an independent historian(s) No Independent interpretation of test performed by another MD/QHCP/appropriate source (not separately reported) No Discussion of management or test interpretation with external MD/QHCP/appropriate source (not separately reported) No Risk status (cardiac, billing related) high Vitals/Labs Vital Signs Date Time Temp Pulse Resp B/P (MAP) Pulse Ox O2 Delivery O2 Flow Rate FiO2 07/28/24 12:00 97.7 81 20 108/73 97 Room Air 07/28/24 08:00 0 21 Laboratory Tests 07/28/24 03:45 Medications Current Medications Metoclopramide HCl 10 mg ONCE ONCE IVP Last administered on 07/24/24at 21:10; Start 07/24/24 at 19:00; Stop 07/24/24 at 19:01; Status DC Pantoprazole Sodium 40 mg ONCE ONCE IVP Last administered on 07/24/24at 21:10; Start 07/24/24 at 19:00; Stop 07/24/24 at 19:01; Status DC Aspirin 325 mg ONCE ONCE PO Last administered on 07/24/24at 21:11; Start 07/24/24 at 19:00; Stop 07/24/24 at 19:01; Status DC Furosemide 40 mg ONCE ONCE IV Last administered on 07/24/24at 21:11; Start 07/24/24 at 19:00; Stop 07/24/24 at 19:01; Status DC Insulin Human Regular 5 unit ONCE ONCE IV Last administered on 07/24/24at 22:31; Start 07/24/24 at 20:00; Stop 07/24/24 at 20:01; Status DC Ondansetron HCl 4 mg Q6H PRN IV; Start 07/24/24 at 23:00; Stop 07/28/24 at 15:07; Status DC Zolpidem Tartrate 5 mg HS PRN PO Last administered on 07/25/24at 03:50; Start 07/24/24 at 23:00; Stop 07/28/24 at 15:07; Status DC Lactulose 20 gm BID PRN PO; Start 07/24/24 at 23:00; Stop 07/28/24 at 15:07; Status DC Nitroglycerin 0.4 mg PROTOCOL PRN SL; Start 07/24/24 at 23:00; Stop 07/28/24 at 15:07; Status DC Famotidine 20 mg DAILY PO Last administered on 07/28/24at 10:03; Start 07/25/24 at 09:00; Stop 07/28/24 at 15:07; Status DC Hydralazine HCl 10 mg Q6H PRN IV; Start 07/24/24 at 23:00; Stop 07/28/24 at 15:07; Status DC Insulin Human Regular INSULIN SLIDING SCAL... ACHS SQ Last administered on 07/28/24at 12:31; Start 07/25/24 at 07:30; Stop 07/28/24 at 15:07; Status DC Dextrose 50 ml AD PRN IV; Start 07/24/24 at 23:00; Stop 07/28/24 at 15:07; Status DC Glucagon 1 mg AD PRN IM; Start 07/24/24 at 23:00; Stop 07/28/24 at 15:07; Status DC Magnesium Sulfate 50 ml @ 0 mls/hr PROTOCOL PRN IV Last administered on 07/27/24at 10:33; Start 07/24/24 at 23:00; Stop 07/28/24 at 15:07; Status DC Potassium Chloride 100 ml @ 100 mls/hr AD PRN IV; Start 07/24/24 at 23:00; Stop 07/28/24 at 15:07; Status DC Potassium Chloride 20 meq AD PRN PO; Start 07/24/24 at 23:00; Stop 07/28/24 at 15:07; Status DC Potassium Chloride 20 meq AD PRN PO Last administered on 07/27/24at 08:28; Start 07/24/24 at 23:00; Stop 07/28/24 at 15:07; Status DC Aspirin 81 mg DAILY PO Last administered on 07/28/24at 10:03; Start 07/25/24 at 09:00; Stop 07/28/24 at 15:07; Status DC Atorvastatin Calcium 20 mg HS PO Last administered on 07/27/24at 20:30; Start 07/25/24 at 21:00; Stop 07/28/24 at 15:07; Status DC Losartan Potassium 25 mg DAILY PO Last administered on 07/28/24at 10:02; Start 07/25/24 at 09:00; Stop 07/28/24 at 15:07; Status DC Levothyroxine Sodium 50 mcg SYN PO Last administered on 07/28/24at 04:41; Start 07/25/24 at 06:30; Stop 07/28/24 at 15:07; Status DC Metoprolol Succinate 50 mg DAILY PO Last administered on 07/28/24at 10:02; Start 07/25/24 at 09:00; Stop 07/28/24 at 15:07; Status DC Chlorpromazine HCl 25 mg ONCE ONCE PO Last administered on 07/25/24at 00:13; Start 07/24/24 at 00:00; Stop 07/24/24 at 23:37; Status DC Furosemide 20 mg Q8H IV Last administered on 07/28/24at 12:30; Start 07/25/24 at 03:30; Stop 07/28/24 at 15:07; Status DC Ceftriaxone Sodium 1 gm Q24H IVPB Last administered on 07/27/24at 13:52; Start 07/25/24 at 14:00; Stop 07/28/24 at 15:07; Status DC Hydroxyzine HCl 25 mg TID PRN PO; Start 07/25/24 at 14:00; Stop 07/28/24 at 15:08; Status DC Dobutamine HCl/ Dextrose 250 ml @ 0 mls/hr PROTOCOL IV Last administered on 07/27/24at 22:36; Start 07/25/24 at 16:30; Stop 07/28/24 at 15:08; Status DC Pharmacy Profile Note 1 each AD MISC; Start 07/25/24 at 18:30; Stop 07/26/24 at 07:14; Status DC Acetaminophen 325 mg STK-MED ONCE .ROUTE; Start 07/25/24 at 20:21; Stop 07/25/24 at 20:21; Status DC Acetaminophen 650 mg Q6H PRN PO Last administered on 07/26/24at 23:35; Start 07/25/24 at 20:30; Stop 07/28/24 at 15:08; Status DC Fluticasone Propionate 1 SPRAY DAILY EN; Start 07/28/24 at 09:00; Stop 07/28/24 at 15:08; Status DC Benzonatate 100 mg Q8H PRN PO Last administered on 07/28/24at 04:41; Start 07/27/24 at 14:00; Stop 07/28/24 at 15:08; Status DC Lidocaine HCl 20 ml STK-MED ONCE .ROUTE; Start 07/27/24 at 15:50; Stop 07/27/24 at 15:50; Status DC Iohexol 75 ml STK-MED ONCE IV; Start 07/27/24 at 15:50; Stop 07/27/24 at 15:51; Status DC Heparin Sodium/ Sodium Chloride 500 ml @ As Directed STK-MED ONCE IV; Start 07/27/24 at 15:50; Stop 07/27/24 at 15:51; Status DC GUSTAVO PRUITT MD Jul 28, 2024 22:25
== END 2024-07-28 14:50 | disposition home or self-care (01) | DRG 281 ==
LOC: EDH 18:15 → EDHIP 21:57 → 2AH 07-25 23:55
PROVIDERS: ADMIT Internal Medicine; ATTEND Internal Medicine
PROC: 06H03DZ Insertion of Intraluminal Device into Inferior Vena Cava, Percutaneous Approach (ICD-10-PCS; principal; 2024-07-27)
PROC: B549ZZA Ultrasonography of Inferior Vena Cava, Guidance (ICD-10-PCS; 2024-07-27)
DX: I13.0 Hypertensive heart and chronic kidney disease with heart failure and stage 1 through stage 4 chronic kidney disease, or unspecified chronic kidney disease (principal); E87.1 Hypo-osmolality and hyponatremia; I21.4 Non-ST elevation (NSTEMI) myocardial infarction; L03.115 Cellulitis of right lower limb; I82.431 Acute embolism and thrombosis of right popliteal vein; I50.9 Heart failure, unspecified; I25.5 Ischemic cardiomyopathy; E11.65 Type 2 diabetes mellitus with hyperglycemia; N18.30 Chronic kidney disease, stage 3 unspecified; D63.1 Anemia in chronic kidney disease; I25.10 Atherosclerotic heart disease of native coronary artery without angina pectoris; E11.319 Type 2 diabetes mellitus with unspecified diabetic retinopathy without macular edema; E11.40 Type 2 diabetes mellitus with diabetic neuropathy, unspecified; E03.9 Hypothyroidism, unspecified; E11.22 Type 2 diabetes mellitus with diabetic chronic kidney disease; R06.6 Hiccough; E78.5 Hyperlipidemia, unspecified; E87.8 Other disorders of electrolyte and fluid balance, not elsewhere classified; F41.9 Anxiety disorder, unspecified; Z79.4 Long term (current) use of insulin; Z86.718 Personal history of other venous thrombosis and embolism; Z91.148 Patient's other noncompliance with medication regimen for other reason; Z86.73 Personal history of transient ischemic attack (TIA), and cerebral infarction without residual deficits; Z87.891 Personal history of nicotine dependence
CPT/HCPCS: 36415; 37191; 71045; 78582; 80048; 80053; 80061; 81001; 82948; 83036; 83735; 83880; 84443; 84484; 85025; 85610; 85730; 93005; 93970; 96374; 96375; 99291; A9540; A9558; C1769; G0378; J0696; J1250; J1644; J1815; J1940; J2470; J2765; J3475; J3490; Q9967; C1880; C1894

== ENCOUNTER 2024-08-14 16:45 | Inpatient (IN) | payer OTHER ==
[~2024-08-14] VITALS: Ht 172.7 cm; Wt 93.4 kg
[2024-08-14 17:35] LABS: BASOPHILS # (AUTO) 0.05 K/uL (0.00-0.20); BASOPHILS % (AUTO) 0.9 % (0.0-5.0); EOSINOPHILS # (AUTO) 0.23 K/uL (0.00-0.70); EOSINOPHILS % (AUTO) 4.1 % (0.0-8.0); HEMATOCRIT 35.4 % (42-54); IMMATURE GRANULOCYTE ABSOLUTE 0.02 K/uL (0-1); LYMPHOCYTES # (AUTO) 0.7 K/uL (1.0-4.8); LYMPHOCYTES % (AUTO) 12.1 % (21.0-51.0); MEAN CORPUSCULAR HGB CONC 32.2 g/dL (32.0-36.0); MEAN CORPUSCULAR VOLUME 83.7 fL (79-99); MONOCYTES # (AUTO) 0.8 K/uL (0.1-1.0); MONOCYTES % (AUTO) 13.5 % (3.0-13.0); NEUTROPHILS # (AUTO) 3.9 K/uL (1.8-7.7); PLATELET COUNT (AUTO) 223 K/uL (130-400); RED BLOOD CELL COUNT(AUTO) 4.23 MIL/uL (4.50-6.20); RED CELL DISTRIBUTION WIDTH 17.9 % (11.0-15.5); WHITE BLOOD COUNT (AUTO) 5.6 K/uL (4.8-10.8)
[2024-08-14 17:58] LABS: CREATININE 3.4 mg/dL (0.5-1.3); POTASSIUM 4.8 mmol/L (3.5-5.1)
--- NOTE | 2024-08-14 18:30 | ERN ---
ED Note History of Present Illness Stated Complaint: BLE SWELLING, TESTICULAR SWELLING, S/P HEART CATH Chief Complaint: Post-Op Problem Time Seen by MD: 17:24 Time Seen by Midlevel: 17:24 Dictation: 64-year-old male with a history of CHF, hypertension, diabetes, kidney disease, and cholesterol coming in complaining of bilateral testicular swelling, bilateral lower leg swelling and weeping. Patient states he is taking his Lasix as prescribed however thinks it is not working as states now his lower extre mities are "leaking". Allergies: Coded Allergies: No Known Drug Allergies (Unverified Allergy, Unknown, 07/04/24) Home Meds Active Scripts Nitroglycerin (Nitroglycerin) 0.4 Mg Tab.subl, 1 TAB SL AD for chest pain, #25 TAB 1 Refill 1st sign of attack; may repeat every 5 mins; if pain persists after 3 in 15 min, medical attention is recommended Prov:GARRY GUERRA MD 07/14/24 Latanoprost (Xalatan) 0.005 % Drops, 0 DROP OU HS for 30 Days, #1 DROP 1 Refill as directed Prov:GARRY GUERRA MD 07/14/24 Reported Medications Levothyroxine Sodium (Levothyroxine) 50 Mcg Capsule, 1 CAP PO DAILY for 30 Days, #30 CAP 0 Refills 07/04/24 Metoprolol Succinate (Metoprolol Succinate) 50 Mg Tab.er.24h, 1 TAB PO DAILY for 30 Days, #30 TAB 0 Refills 07/04/24 Meloxicam (Meloxicam) 15 Mg Tablet, 15 MG PO DAILY, TAB 07/04/24 Losartan Potassium (Losartan Potassium) 25 Mg Tablet, 1 TAB PO DAILY for 30 Days, #30 TAB 0 Refills 07/04/24 Famotidine (Famotidine) 20 Mg Tablet, 20 MG PO DAILY, TAB 07/04/24 Atorvastatin Calcium (Atorvastatin Calcium) 20 Mg Tablet, 20 MG PO HS, TAB 07/04/24 Aspirin (ASPIRIN 81 MG ECTAB) 81 Mg Ectab, 81 MG PO DAILY, TAB.EC 07/04/24 Past Medical History Past Medical History: Anxiety, CHF, Depression, Diabetes-Type II, Heart Disease, Hypertension, Hypothyroid, CO, Renal Disese, Stroke Surgical History: Appendectomy Review of System Dictation Constitutional: Negative for fever,chills, and weight loss Eyes: Negative for injury, pain,redness, and discharge ENT: Negative for injury,pain or swelling Cardiovascular: Negative for chest pain, palpitations, complaining of bilateral lower leg edema and weeping Respiratory: Negative for shortness of breath, cough, and wheezing, Abdomen/GI: Negative for abdominal pain, nausea, vomiting, diarrhea, and constipation Back: Negative for injury and pain : Negative for injury, bleeding and discharge, complaining of bilateral testicular swelling MS/Extremity: Negative for injury and deformity Skin: Negative for rash, and discoloration Neuro: Negative for headache, weakness, numbness, tingling, and seizure Psych: Negative for suicide ideation, homicidal ideation, and hallucinations Review of Systems: was completed Initial Vital Sign VS Vital Signs Date Time Temp Pulse Resp B/P (MAP) Pulse Ox O2 Delivery O2 Flow Rate FiO2 08/14/24 16:46 98.2 89 16 100/60 98 Room Air 0 08/14/24 18:32 21 Physical Exam Dictation General: awake, alert, NAD Head/Face: Normocephalic, atraumatic Eyes: PERRL, EOMI, vision at baseline ENT: oral cavity clear, TMs clear, no signs of infection Neck: Trachea midline, supple, no nuchal rigidity Cardiovascular: RRR, normal S1/S2, No MRGs, no JVD, bilateral lower leg swelling, weeping Respiratory: CTAB, no respiratory distress, No rales or wheezes Abdomen: Soft, non-tender, non-distended, normal bowel sounds, no guarding or rebound. Skin: Warm, dry, normal turgor, no rash MS/Extremity: Pulses equal, no cyanosis, neurovascular intact, FROM Neuro: COAx4, GCS 15, strength 5/5, CN 2-12 intact, normal cerebellar exam, normal gait, Psych: Normal behavior, mood, and affect normal Unable to assess states he felt areas patient was in triage. Results (Laboratory/Radiology) Laboratory/Radiology Laboratory Tests Test 08/14/24 17:30 White Blood Count 5.6 K/uL (4.8-10.8) Red Blood Count 4.23 MIL/uL (4.50-6.20) L Hemoglobin 11.4 g/dL (14.0-18.0) L Hematocrit 35.4 % (42-54) L Mean Corpuscular Volume 83.7 fL (79-99) Mean Corpuscular Hemoglobin 27.0 pg (27.0-33.0) Mean Corpuscular Hemoglobin Concent 32.2 g/dL (32.0-36.0) Red Cell Distribution Width 17.9 % (11.0-15.5) H Platelet Count 223 K/uL (130-400) Mean Platelet Volume 9.8 fL (7.5-10.5) Immature Granulocyte % (Auto) 0.4 % (0-1) Neutrophils (%) (Auto) 69.0 % (40.0-77.0) Lymphocytes (%) (Auto) 12.1 % (21.0-51.0) L Monocytes (%) (Auto) 13.5 % (3.0-13.0) H Eosinophils (%) (Auto) 4.1 % (0.0-8.0) Basophils (%) (Auto) 0.9 % (0.0-5.0) Neutrophils # (Auto) 3.9 K/uL (1.8-7.7) Lymphocytes # (Auto) 0.7 K/uL (1.0-4.8) L Monocytes # (Auto) 0.8 K/uL (0.1-1.0) Eosinophils # (Auto) 0.23 K/uL (0.00-0.70) Basophils # (Auto) 0.05 K/uL (0.00-0.20) Absolute Immature Granulocyte (auto 0.02 K/uL (0-1) Nucleated Red Blood Cells 0.0 % (0.0-0.19) Sodium Level 138 mmol/L (136-145) Potassium Level 4.8 mmol/L (3.5-5.1) Chloride Level 103 mmol/L (101-111) Carbon Dioxide Level 27 mmol/L (21-32) Blood Urea Nitrogen 76 mg/dL (7-18) *H Creatinine 3.4 mg/dL (0.5-1.3) H Glomerular Filtration Rate Calc 20 mL/min (>90) Random Glucose 189 mg/dL (70-105) H Total Calcium 8.6 mg/dL (8.5-10.1) Troponin I High Sensitivity 894 ng/L (4-75) *H Labs Reviewed?: Yes EKG Comment: Date:08/14/24 Time:1112 Ventricular rate:89 TN interval:168 QRS duration:-11 QT/QTc:401/489 EKG interpretation: Sinus rhythm, ventricular premature complex, nonspecific ablation remotely, lateral leads. Reviewed by ED Attending no STEMI interpreted by ER MD. ED Course ED Course Orders Procedure Category Date Status Time 12 Lead Ekg Tracing- EKG 08/14/24 Logged Technical 17:01 Chest 1vw RAD 08/14/24 Resulted 17:01 Troponin I High LAB 08/14/24 Complete Sensitivity 17:01 Cbc With Differential LAB 08/14/24 Complete 17:01 Basic Metabolic Panel LAB 08/14/24 Complete 17:01 B-Type Natriuretic LAB 08/14/24 Logged Peptide 18:17 Us Scrotum & Contents US 08/14/24 Logged 18:17 Aspirin 81mg Chew Tab PHA 08/14/24 Complete (Aspirin 81mg Chew 18:36 Furosemide 40mg Vial PHA 08/14/24 Complete (Lasix 40mg Vial) 18:37 Admit Orders ADM 08/14/24 Transmitted 18:38 Edm Admit Bridge Order ADM 08/14/24 Transmitted 18:39 Current Medications Medications (Trade) Dose Ordered Sig/Anjelica Route PRN Reason Start Time Stop Time Status Last Admin Dose Admin Aspirin (Aspirin 81mg Chew Tab) 324 mg ONCE STAT PO 08/14/24 18:36 08/14/24 18:37 DC Furosemide (LASix 40MG VIAL) 40 mg ONCE STAT IV 08/14/24 18:37 08/14/24 18:38 DC Vital Signs Date Time Temp Pulse Resp B/P (MAP) Pulse Ox O2 Delivery O2 Flow Rate FiO2 08/14/24 18:32 90 19 114/77 99 Room Air* 0 21 08/14/24 16:46 98.2 89 16 100/60 98 Room Air 0 Medical Decision Making MDM MDM: 64-year-old male with a history of CHF, hypertension, diabetes, kidney disease, and cholesterol coming in complaining of bilateral testicular swelling, bilateral lower leg swelling and weeping. Patient states he is taking his Lasix as prescribed however thinks it is not working as states now his lower extremities are "leaking". CBC shows no leukocytosis, normocytic anemia, most likely related to his end-stage renal disease. No thrombocytopenia. Chemistry shows no electrolyte abnormality. Elevated BUN and creatinine, BUN is 76 and creatinine is 3.4. This has not worsened since previous visit. Troponin is 894, however this seems to be improving from previous visit. According to patient and previous visits patient has not been anticoagulated for previous elevated troponin due to intra-ocular bleeding. This time patient denies having any chest pain, or chest discomfort. EKGs not show any ST elevations. Chest x- ray shows mild bilateral pulmonary infiltrates related to possibly vascular congestion or superimposed pneumonitis. Due to patient's history is is more likely related to his CHF. Patient will be admitted for JOAQUÍN on CKD, CHF exacerbation, and elevated troponin. Patient received aspirin in the emergency room along with Lasix. Spoke to Kenny DELGADILLO, notified him pending BNP and ultrasound of the testicles. Differential diagnosis: CHF exacerbation, ACS, cellulitis, orchitis Rationale: Tests considered and ordered secondary to shared decision making include: labs, ECG and radiology Previous outside records reviewed: Old ER visits. Risk of complication and/or morbidity or mortality of patient management: None Medications-Per medication reconciliation Need for hospitalization: Patient does meet criteria for hospitalization. Need for emergency major/minor surgery: No There are no social concerns with this patient. Prescription drug management Prescriptions will include symptomatic care Patient's prior external medical records from other ER visits were reviewed by me as indicated. Prior testing and results from previous visits were reviewed. Prior tests were taken into account with medical decision making and resource utilization, independent historian/historians were used to obtain complete medical history. I independently interpreted the test that were performed, results were reviewed by me and considered findings on radiology if ordered. Medical management and examination interpretation discussions were had by me with other qualified healthcare professionals as indicated for the patient's care. DX & DISP Disposition: Inpatient Departure Impression: Primary Impression: CHF exacerbation Additional Impressions: NSTEMI (non-ST elevated myocardial infarction), CKD (chronic kidney disease) Condition: Stable Referrals: PEDRO LUIS MARSHALL (PCP) I have reviewed the case, and I agree with, Diagnosis and Plan MICHELLE GARVEY NP Aug 14, 2024 18:30
--- NOTE | 2024-08-14 18:30 | NUR ---
TO ER 17 AT THIS TIME
--- NOTE | 2024-08-14 18:35 | HMCIMG ---
CHEST 1VW HISTORY: Shortness of breath COMPARISON: 07/26/2024 FINDINGS: A frontal projection of the chest was obtained. Mild bilateral pulmonary infiltrates are seen may be related to mild pulmonary vascular congestion with possible superimposed pneumonitis. The heart is borderline enlarged. Degenerative changes are seen. No evidence of aortic calcification is seen. IMPRESSION: 1. Mild bilateral pulmonary infiltrates are seen may be related to mild pulmonary vascular congestion with possible superimposed pneumonitis.
[2024-08-14] MEDS: ASPIRIN 81MG CHEW TAB PO STA (18:52)
[2024-08-14] MEDS: furoSEMIDE 40MG VIAL IV STA (18:52)
--- NOTE | 2024-08-14 19:24 | HMCIMG ---
US SCROTUM & CONTENTS HISTORY: Swelling COMPARISON: None TECHNIQUE: Duplex scrotal ultrasound study was performed. FINDINGS: The right testes measures 2.9 x 2.2 x 2.7 cm. The left testes measures 3 x 2.2 x 2.2 cm. No evidence of intratesticular mass or abnormal calcification is seen. Decreased flow is demonstrated in the testes and epididymides bilaterally. There are bilateral moderate hydrocele. There is right epididymal head cyst measuring 2.4 x 2.9 cm. Severe scrotal edema is seen. Scrotal wall thickening is seen with sclerotic edema with right measuring 13 mm in thickness and left measuring 20 mm in thickness IMPRESSION: 1. No evidence of intratesticular mass is seen. 2. Decreased flow is demonstrated of both testes and epididymides. There are bilateral moderate hydrocele. Scrotal edema is seen.
[2024-08-14] MEDS ORDERED: hydrALAZine 20MG/ML VIAL IV PRN (19:30)
[2024-08-14] MEDS ORDERED: acetaMINOPHEN 325 MG TAB PO PRN (19:30)
[2024-08-14] MEDS ORDERED: NITROGLYCERIN 0.4 MG SL TAB SL PRN (19:30)
[2024-08-14] MEDS: morPHINE 4 MG SYG IV PRN (19:35)
[2024-08-14] MEDS: INSULIN humuLIN R 100 UNIT/ML 3ML SQ SCH (21:41)
[2024-08-14 22:06] LABS: APPEARANCE,URINE CLEAR (CLEAR); BILIRUBIN,URINE NEGATIVE (NEGATIVE); COLOR,URINE COLORLESS (YELLOW); GLUCOSE, URINE (UA) NEGATIVE (NEGATIVE); KETONES,URINE NEGATIVE (NEGATIVE); LEUKOCYTE ESTERASE ,URINE NEGATIVE Leu/uL (NEGATIVE); NITRATE,URINE NEGATIVE (NEGATIVE); PROTEIN,URINE NEGATIVE (NEGATIVE); UROBILINOGEN,URINE 0.2 mg/dL (0.2-1.0)
[2024-08-14 22:09] LABS: ADD UA MICROSCOPIC YES; RBC,URINE 0-1 /HPF (0-1); SQUAMOUS EPITHELIAL CELL,UR RARE /HPF (0-2); WBC,URINE 0-1 /HPF (0-1)
[2024-08-14 22:11] LABS: CREATININE,URINE RANDOM 19.15 mg/dL (30-135); SODIUM,URINE RANDOM 110 mmol/l (40-220)
[2024-08-14] MEDS: hydroMORPHone 0.5 MG SYG (0.5MG/0.5ML) IVP ONE (22:53)
--- NOTE | 2024-08-14 23:27 | HP ---
History of Present Illness Reason for Visit: Lower extremity swelling History of Present Illness Mr. De La Cruz is a 64-year-old male that was seen and examined today on 08/14/2024. Patient is a good historian and personal health. Patient reports that he came to the emergency department with a chief complaint of swelling. Onset was February 2024. Location is to bilateral lower extremities and testicles. Duration is constant. Character is described like "I am all swollen. " there was no alleviating factors. Patient is a aggravated with drinking more fluid. Patient denies any associated shortness of breath or chest pain. Today in the emergency department BUN 76, creatinine 3.4, GFR 20, glucose 189 mg/dL, troponin 191. Emergency room physician recommended that patient be admitted with a diagnosis of JOAQUÍN on CKD. Past Medical History Patient History: Diabetes mellitus ADDITIONAL PAST MEDICAL HISTORY: [Diabetes mellitius type2, hypertension, CKD, CVA, CHF LVEF is <20%. Stage III diastolic dysfunction by 2D echo on 07/05/2024] SOCIAL HISTORY: [Negative for smoking, alcohol use, drug use. Patient lives with his brother and his mother (Priscila De La Cruz). Patient is typically independent of his ADLs. Patient denies difficulty pain is bills. 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 Patient has good access to health care through his insurance. Patient denies difficulty pain is bills.] SURGICAL HISTORY: [Appendectomy] Review of Systems General: No Fever, No Chills, No Night Sweats, No Fatigue, No Malaise, No Appetite, No Other HEENT: No Head Aches, No Visual Changes, No Eye Pain, No Ear Pain, No Dysphasia, No Sinus Congestion, No Post Nasal Drip, No Sore Throat, No Other Pulmonary: No Dyspnea, No Cough, No Pleuritic Chest Pain, No Other Cardiovascular: Edema; No: Chest Pain, Palpitations, Orthopnea, Paroxysmal Noc. Dyspnea, Lt Headedness, Other Gastrointestinal: No: Nausea, Vomiting, Abdominal Pain, Diarrhea, Constipation, Melena, Hematochezia, Other Genitourinary: No Dysuria, No Frequency, No Incontinence, No Hematuria, No Retention, No Other Musculoskeletal: No: other, neck pain, shoulder pain, arm pain, back pain, hand pain, leg pain, foot pain Skin: No Urticaria, No Rash, No Other Neurological: No: Weakness, Numbness, Incoordination, Change in speech, Confusion, Seizures, Other Allergies: Coded Allergies: No Known Drug Allergies (Unverified Allergy, Unknown, 07/04/24) Scheduled Aspirin (Aspirin 81 Mg Ectab), 81 MG PO DAILY, (Reported) Atorvastatin Calcium (Atorvastatin Calcium), 20 MG PO HS, (Reported) Famotidine (Famotidine), 20 MG PO DAILY, (Reported) Latanoprost (Xalatan), 0 DROP OU HS Levothyroxine Sodium (Levothyroxine), 1 CAP PO DAILY, (Reported) Losartan Potassium (Losartan Potassium), 1 TAB PO DAILY, (Reported) Meloxicam (Meloxicam), 15 MG PO DAILY, (Reported) Metoprolol Succinate (Metoprolol Succinate), 1 TAB PO DAILY, (Reported) Nitroglycerin (Nitroglycerin), 1 TAB SL AD Exam Vital Signs Vital Signs Date Time Temp Pulse Resp B/P (MAP) Pulse Ox O2 Delivery O2 Flow Rate FiO2 08/14/24 20:00 97.9 90 19 134/77 97 Room Air* 0 21 General Appearance: Alert, Oriented X3, Cooperative, No acute distress HEENT: Atraumatic, EOMI Respiratory: Clear to auscultation, Normal air movement, NL respiratory effort Cardiovascular: Regular rate, Regular rhythm, Normal S1, Normal S2, Other (S3) Abdominal: Normal bowel sounds, Soft, No tenderness Extremities: Other (Positive plus 3 pitting edema to bilateral lower extremities) Skin: Other (Right lower extremity wound) Neuro: Normal speech, Strength at 5/5 X4 ext Psych/Mental Status: Mental status NL, Mood NL, Thoughts/Content NL Additional PE Genitourinary: Positive Scrotal swelling Assessment/Plan ASSESSMENT: [ JOAQUÍN on CKD, POA Elevated troponin, POA Uncontrolled Diabetes mellitius type2, POA CHF with LVEF 20% stage III diastolic dysfunction, POA Fluid overload secondary to above Right lower extremity wound Hypertension History of stroke] PLAN: [ Admit patient to PCU as inpatient status. Place patient on telemetry monitoring. Monitor intake and output every shift. Weight patient daily. 1500 mL daily fluid restriction. Defer decision to continue diuresis with Lasix to Nephrology Service. Patient will be followed by Nephrology Service, Dr. Tolentino Avoid nephrotoxic agents when possible Renally dose all medications when possible Monitor patient's labs Check hemoglobin A1c in a.m. Glucometer checks a.c. and HS 1800 ADA diet Humalog sliding scale full-dose Resume home medications once they are reconciled Consult Wound Care Service for evaluation and recommendations Emergency room monitored aspirin 325 mg by mouth times 1 dose Continue aspirin 81 mg by mouth once daily Nitroglycerin sublingual 0.4 mg as needed for chest pain every 5 minutes, max 3 doses, hold for systolic blood pressure less than 100 mmHg. Trend troponin every 6 hours x 3 sets Supplemental oxygen to maintain O2 saturation greater than 92% Consult cardiology if any elevation in troponin or troponin uptrending DVT prophylaxis, Gabriele's and SCDs, patient declining anticoagulation because at a previous admission he reports he had transient blindness after receiving anticoagulation. ADVANCED CARE PLANNING 1. Which of the following were discussed? Hospice Care - Yes Therapeutic options - Yes Advance Directives - Yes-patient states he does not have any advance directives in place at this time, however his mother Priscila can make decisions for him if he becomes unable. Other discussions - patient wishes to remain a full code at this time 2. Discussed with who? Patient 3. Voluntary nature of this service was explained to the patient? Yes 4. Amount of time spent - ___ 16 minutes ____ 5. Reviewed by Physician? (if this service was performed by NPP) Yes This document was generated in part using voice recognition software, occasional wrong word or sound alike substitutions may have occurred due to the inherent limitations of voice recognition software. Read the chart carefully and recognize using context, where the substitutions have occurred. Although every effort was made to edit the content, waste water plant operator and typing errors may occur ATTESTATION BY PHYSICIAN I have seen and examined the patient. I reviewed the documentation, medical decision making, and treatment plan as noted by the mid-level provider above. I agree with the findings and plan of care. [facility] Aug 14, 2024 23:27
[2024-08-15] VITALS (7 sets, daily range): BP systolic 104–126; BP diastolic 70–99; PULSE 90–104; RESP 16–18; TEMP 97.6–98.5; O2SAT 97–98
[2024-08-15] MEDS ORDERED: FAMO20TA8 PO
[2024-08-15] MEDS ORDERED: MELO-108 PO
[2024-08-15] MEDS ORDERED: LEVO50CA4 PO
[2024-08-15] MEDS ORDERED: LATA2.5D14 OP
[2024-08-15] MEDS ORDERED: BENZ-39 PO
[2024-08-15] MEDS ORDERED: SULF1TAB42 PO
[2024-08-15] MEDS ORDERED: ASPI-1005 PO
[2024-08-15] MEDS ORDERED: METO-391 PO
[2024-08-15] MEDS ORDERED: BUME1TAB6 PO
[2024-08-15] MEDS ORDERED: HYDR-4030 PO
[2024-08-15] MEDS ORDERED: ATOR20TA65 PO
[2024-08-15] MEDS ORDERED: LOSA25TA41 PO
[2024-08-15] MEDS ORDERED: NITR0.4T50 SL
--- NOTE | 2024-08-15 | NUR ---
MED REC DONE AT THIS TIME
--- NOTE | 2024-08-15 01:46 | NUR ---
REPORT GIVEN TO ORQUIDEA YANES ALL QUESTIONS ANSWERED AT THIS TIME, RN EXPECTING PT ARRIVAL TO THE UNIT.
--- NOTE | 2024-08-15 02:30 | NUR ---
NURSING OBSERVATION/ SAFETY PT STATES DOES NOT WANT BED ALARM IN PLACE AND WANTS TO SIGN "WAIVER". PT IS AWAKE AND ALERT AND ORIENTED X3. Addendum: 08/15/24 at 0320 by ABRAM SÁNCHEZ RN RN Amended: Links added.
[2024-08-15 05:30] LABS: BASOPHILS # (AUTO) 0.07 K/uL (0.00-0.20); BASOPHILS % (AUTO) 1.2 % (0.0-5.0); EOSINOPHILS # (AUTO) 0.28 K/uL (0.00-0.70); EOSINOPHILS % (AUTO) 4.8 % (0.0-8.0); HEMATOCRIT 33.1 % (42-54); IMMATURE GRANULOCYTE ABSOLUTE 0.02 K/uL (0-1); LYMPHOCYTES # (AUTO) 0.9 K/uL (1.0-4.8); LYMPHOCYTES % (AUTO) 16.2 % (21.0-51.0); MEAN CORPUSCULAR HEMOGLOBIN 26.9 pg (27.0-33.0); MEAN CORPUSCULAR HGB CONC 32.6 g/dL (32.0-36.0); MEAN CORPUSCULAR VOLUME 82.3 fL (79-99); MONOCYTES # (AUTO) 1.1 K/uL (0.1-1.0); MONOCYTES % (AUTO) 19.1 % (3.0-13.0); NEUTROPHILS # (AUTO) 3.4 K/uL (1.8-7.7); NEUTROPHILS % (AUTO) 58.4 % (40.0-77.0); PLATELET COUNT (AUTO) 217 K/uL (130-400); RED BLOOD CELL COUNT(AUTO) 4.02 MIL/uL (4.50-6.20); RED CELL DISTRIBUTION WIDTH 17.5 % (11.0-15.5); WHITE BLOOD COUNT (AUTO) 5.8 K/uL (4.8-10.8)
[2024-08-15 05:40] LABS: CREATININE 3.3 mg/dL (0.5-1.3); MAGNESIUM 2.1 mg/dL (1.80-2.40); PHOSPHORUS 4.5 mg/dL (2.5-4.9); POTASSIUM 4.7 mmol/L (3.5-5.1)
[2024-08-15 05:51] LABS: HEMOGLOBIN A1C 9.5 % (4.0-6.0)
--- NOTE | 2024-08-15 06:31 | EKG ---
[facility] Test Date: 2024-08-14 Test Time: 17:11:12 Pat Name: RENATA BANERJEE Department: [facility] Room: 425 Gender: M Installation Specialist: [id number] : [id number] Requested By: MICHELLE GARVEY Order Number: [id number] Reading MD: Matt Pearl Measurements Intervals [place] Rate: 89 P: 41 CO: 168 QRS: -11 QRSD: 98 T: 118 QT: 401 QTc: 489 Interpretive Statements Sinus rhythm Ventricular premature complex Nonspecific repol abnormality, lateral leads Compared to ECG 07/24/2024 23:37:32 Ventricular premature complex(es) now present Early repolarization now present Sinus tachycardia no longer present T-wave abnormality no longer present Possible ischemia no longer present Electronically Signed On 08-15-2024 18:10:39 REFERRAL SPECIALIST by Matt Pearl Please click the below link to view image of tracing.
[2024-08-15] MEDS: ASPIRIN 81 MG EC TAB PO SCH (08:24)
[2024-08-15] MEDS ORDERED: tamSULOsin HCL 0.4 MG CAP.ER.24H PO ONE (10:00)
[2024-08-15] MEDS ORDERED: doCUSate SODIUM 100 MG CAP PO ONE (10:00)
--- NOTE | 2024-08-15 10:02 | PN ---
[facility] PROGRESS NOTE Date of Service: Aug 15, 2024 Time of Service: 09:33 SUBJECTIVE: [ ] This is a 64-year-old male who is well known to [facility] for fluid overload chronic CHF with EF of 20%. Chief complaint of anasarca to lower extremity scrotal edema and pain to scrotal. Patient has a significant social determinants noncompliance with treatment in the past. On last admission patient had to be started on small dose of dobutamine per his primary digital measurement advisor's which has been already consulted we will follow his recommendation patient received a dose of Bumex1 mg IV now. Patient on room air. Denied chest pain. REVIEW OF SYSTEMS CONSTITUTIONAL: Denies fevers, chills, or night sweats. No unintentional weight loss reported. NEUROLOGICAL: Denies headache, amaurosis fugax, motor weakness, sensory deficit, vertigo/spinning sensation, gait abnormalities, or tremors. ENT: No hearing loss, otalgia, otorrhea, rhinitis, rhinorrhea, hoarseness, or sore throat. CARDIOVASCULAR: Denies any exertional angina, dyspnea on exertion, orthopnea, paroxysmal nocturnal dyspnea, palpitations, life-threatening arrhythmias, claudication. PULMONARY: Denies any shortness of breath, cough, phlegm/sputum, hemoptysis, pleuritic chest pain. SLEEP: Denies morning headaches, daytime somnolence or napping. Denies difficulty falling asleep, staying asleep, waking from sleep. Denies knowledge of snoring. GASTROINTESTINAL: Denies any type of dysphagia to either liquids or solids. Denies nausea, vomiting, pyrosis, early satiety, abdominal pain, diarrhea, constipation, or changes in stool consistency or caliber. Denies coffee-ground emesis, hematemesis, hematochezia, or melanotic stools. GENITOURINARY: Denies frequency, urgency, nocturia, hematuria or incontinence (Storage/Irritative symptoms.) Low urinary stream, straining to void, urinary intermittency or hesitancy, splitting of the voiding stream, terminal dribbling. ENDOCRINOLOGIC: Denies polyuria, polydipsia, polyphagia or heat/cold intolerances. HEMATOLOGIC: Denies thrombophilia/previous clots, or coagulopathy/bleeding disorders. ONCOLOGIC: Denies personal history of malignancy. DERMATOLOGIC: Denies rashes or pruritus. PSYCHIATRIC: Denies any suicidal or homicidal ideation. Denies hallucinations. PHYSICAL EXAM GENERAL APPEARANCE: The patient is awake, alert, and oriented, in no acute cardiopulmonary distress. NEUROLOGICAL: Cranial nerves II-XII grossly intact. Motor is 5/5 in bilateral upper and lower extremities proximal to distal. No sensory deficits. HEENT: Face is symmetric. Pupils are equal and reactive. Extraocular movements are intact. NECK: Supple. No JVD. No thyromegaly. No submental, submandibular, pre- /postauricular, occipital or supraclavicular lymphadenopathy. CHEST: Normal chest expansion. No Telemetry. LUNGS: Absence of any rales, rhonchi or any wheezing. CARDIOVASCULAR: Regular. S1 and S2 normal. No appreciable rubs, murmurs or gallops. ABDOMEN: Soft, nontender, and nondistended. There is no rebound, voluntary guarding, or rigidity. : Deferred. No Guillermo. EXTREMITIES: Non-edematous and not cyanotic. No clubbing. Good capillary refill. SKIN: No skin breakdown. Vital Signs (last 8hr) Date Time Temp Pulse Resp B/P (MAP) Pulse Ox O2 Delivery O2 Flow Rate FiO2 08/15/24 08:18 97.7 104 16 126/99 100 Room Air 08/15/24 04:39 97.5 96 18 104/71 98 Room Air 21 08/15/24 02:30 Room Air* 0 21 08/15/24 02:00 97.9 101 16 107/70 98 Room Air 21 LABS: Laboratory: Test 08/15/24 05:31 08/15/24 05:00 08/14/24 21:12 08/14/24 21:05 Range/Units Whole Blood Glucose 81 # 70-110 MG/DL White Blood Count 5.8 4.8-10.8 K/uL Red Blood Count 4.02 L 4.50-6.20 MIL/uL Hemoglobin 10.8 L 14.0-18.0 g/dL Hematocrit 33.1 L 42-54 % Mean Corpuscular Volume 82.3 79-99 fL Mean Corpuscular Hemoglobin 26.9 L 27.0-33.0 pg Mean Corpuscular Hemoglobin Concent 32.6 32.0-36.0 g/dL Red Cell Distribution Width 17.5 H 11.0-15.5 % Platelet Count 217 130-400 K/uL Mean Platelet Volume 10.4 7.5-10.5 fL Immature Granulocyte % (Auto) 0.3 0-1 % Neutrophils (%) (Auto) 58.4 40.0-77.0 % Lymphocytes (%) (Auto) 16.2 L 21.0-51.0 % Monocytes (%) (Auto) 19.1 H 3.0-13.0 % Eosinophils (%) (Auto) 4.8 0.0-8.0 % Basophils (%) (Auto) 1.2 0.0-5.0 % Neutrophils # (Auto) 3.4 1.8-7.7 K/uL Lymphocytes # (Auto) 0.9 L 1.0-4.8 K/uL Monocytes # (Auto) 1.1 H 0.1-1.0 K/uL Eosinophils # (Auto) 0.28 0.00-0.70 K/uL Basophils # (Auto) 0.07 0.00-0.20 K/uL Absolute Immature Granulocyte (auto 0.02 0-1 K/uL Nucleated Red Blood Cells 0.0 0.0-0.19 % White Cell Morphology Comment See comments Sodium Level 137 136-145 mmol/L Potassium Level 4.7 3.5-5.1 mmol/L Chloride Level 104 101-111 mmol/L Carbon Dioxide Level 25 21-32 mmol/L Blood Urea Nitrogen 71 H 7-18 mg/dL Creatinine 3.3 H 0.5-1.3 mg/dL Glomerular Filtration Rate Calc 20 >90 mL/min Random Glucose 94 # 70-105 mg/dL Hemoglobin A1c 9.5 H 4.0-6.0 % Estimated Average Glucose (eAG) 226 H 70-126 mg/dL Total Calcium 8.6 8.5-10.1 mg/dL Phosphorus Level 4.5 2.5-4.9 mg/dL Magnesium Level 2.10 1.80-2.40 mg/dL Troponin I High Sensitivity 743 *H 4-75 ng/L Bedside Glucose Comment Notified Nurse Urine Color COLORLESS YELLOW Urine Appearance CLEAR CLEAR Urine pH 5.0 5.0-8.0 Urine Specific [place] 1.007 1.001-1.031 Urine Protein NEGATIVE NEGATIVE mg/dL Urine Glucose (UA) NEGATIVE NEGATIVE mg/dL Urine Ketones NEGATIVE NEGATIVE mg/dL Urine Occult Blood +- (TRACE) H NEGATIVE Urine Nitrate NEGATIVE NEGATIVE Urine Bilirubin NEGATIVE NEGATIVE mg/dL Urine Urobilinogen 0.2 0.2-1.0 mg/dL Urine Leukocyte Esterase NEGATIVE NEGATIVE Anabelle/uL Urine RBC 0-1 0-1 /HPF Urine WBC 0-1 0-1 /HPF Urine Squamous Epithelial Cells RARE 0-2 /HPF Urine Bacteria None None Seen /HPF Urine Hyaline Casts 6-10 H 0-1 /LPF /LPF Urine Osmolality 340 50-1200 mOsm/kg Urine Random Creatinine 19.15 L 30-135 mg/dL Urine Random Sodium 110 40-220 mmol/l Test 08/14/24 17:30 Range/Units B-Type Natriuretic Peptide 2500 H 0-100 pg/mL Current Medications Medications (Trade) Dose Ordered Sig/Anjelica Route PRN Reason Start Time Stop Time Status Last Admin Dose Admin Acetaminophen (TYLenol 325MG TAB) 650 mg Q6H PRN PO TEMPERATURE GREATER THAN 101.5 08/14/24 19:30 09/13/24 19:29 Aspirin (Aspirin 81mg Chew Tab) 324 mg ONCE STAT PO 08/14/24 18:36 08/14/24 18:37 DC 08/14/24 18:52 324 MG Aspirin (Aspirin 81mg Ec Tab) 81 mg DAILY PO 08/15/24 09:00 09/14/24 08:59 08/15/24 08:24 81 MG Furosemide (LASix 40MG VIAL) 40 mg ONCE STAT IV 08/14/24 18:37 08/14/24 18:38 DC 08/14/24 18:52 40 MG Hydralazine HCl (APRESOLine 20MG INJ) 10 mg Q6H PRN IV For:SBP above 160;DBP above 90 08/14/24 19:30 09/13/24 19:29 Insulin Human Regular (humuLIN R 100 UNIT/ML 3ML) INSULIN SLIDING SCAL... ACHS SQ 08/14/24 21:00 09/13/24 20:59 08/14/24 21:41 6 UNIT Morphine Sulfate (morPHINE 4MG SYG) 2 mg Q4H PRN IV SEVERE PAIN (7-10) 08/14/24 19:30 08/21/24 19:29 08/15/24 02:43 2 MG Nitroglycerin (Nitrostat) 0.4 mg AD PRN SL CHEST PAIN 08/14/24 19:30 09/13/24 19:29 Ondansetron HCl (zoFRAN 4MG INJ) 4 mg Q6H PRN IV NAUSEA/VOMITING 08/14/24 19:30 09/13/24 19:29 DIAGNOSTICS / RADIOLOGY: [ ] ASSESSMENT: JOAQUÍN on Chronic renal failure POA Cardiac renal syndrome Anasarca wheeping to lower extPOA Scrotum swelling with bilateral moderate hydrocele. POA Elevated troponin, most likely AK Type II triggered by fluid overload EF < 20% POA Uncontrolled Diabetes mellitius type2, POA acute on chronic CHF with LVEF 20% stage III diastolic dysfunction, POA Right lower extremity wound weeping POA Hypertension History of stroke] Recent bilateral vitreous hemorrhage POA Diabetic retinopathy and neuropathy POA Noncompliance with medication Bumex POA Noncompressible thrombus is seen in the right popliteal vein consistent with deep venous thrombosis. not a candidate for anticoagulation therapy POA s/p post IVC filter placement secondary to DVT and contraindication to anticoagulation. PLAN: [ ] admit to [facility]U with Tele consultants: DR Regan digital measurement advisor Home medication resume: Bumex 1 mg IV now then PO BID will continue with Diuresis for cardiomyopathy. will wait for digital measurement advisor for further recommendation. Troponin elevation and recurrent myocardial injury in the setting of recurrent CHF cont with monitoring with Tele. fluid restriction : 1.5 liter daily strict I/O daily weight Anasarca wheeping to lower extPOA Scrotum swelling with bilateral moderate hydrocele. POA started on Flomax and diuretic wound care will follow recommendations DVT/GI:ppx patient has IVC filter not a candidate of blood thinner. cont with PUD ppx all questions answered further orders as per response to IV diuretics case discussed to attending Dr Ariel Cavazos Cd This document was generated in part using voice recognition software, occasional wrong word or sound alike substitutions may have occurred due to the inherent limitations of voice recognition software. Read the chart carefully and recognize using context, where the substitutions have occurred. Although every effort was made to edit the content, tube handler and typing errors may occur ATTESTATION BY PHYSICIAN I have seen and examined the patient. I reviewed the documentation, medical decision making, and treatment plan as noted by the resident provider above. I agree with the findings and plan of care. Eduar Cavazos MD, [facility] Aug 15, 2024 10:02
[2024-08-15] MEDS: tamSULOsin HCL 0.4 MG CAP.ER.24H PO SCH (10:25)
[2024-08-15] MEDS: BUMETANIDE 1MG/4ML VIAL IM ONE (10:25)
[2024-08-15] MEDS: doCUSate SODIUM 100 MG CAP PO SCH (10:26)
[2024-08-15] MEDS: hydroMORPHone 0.5 MG SYG (0.5MG/0.5ML) IVP PRN (10:26)
[2024-08-15 13:28] LABS: CREATININE,URINE RANDOM 20.7 mg/dL (30-135); PROTEIN,URINE RANDOM 21.4 mg/dL (0-11.9)
--- NOTE | 2024-08-15 13:44 | NUR ---
[facility] Consult: Patient assessed by wound healing team. See wound assessment. Assessment and recommendations provided to primary nurse. Education provided. Addendum: 08/17/24 at 1321 by TAMARA ALBERTS RN RN/ Amended: Links added.
--- NOTE | 2024-08-15 14:34 | NUR ---
DRESSING CHANGE DRESSING DONE TO RLE.
[2024-08-15] MEDS ORDERED: PHARMACY COMMUNICATION 1 EACH EACH MISC SCH (15:00)
--- NOTE | 2024-08-15 15:27 | CONS ---
NEPHROLOGY CONSULTATION NOTE Date/Time Patient Seen: Aug 15, 2024 1210 Reason for Consultation: Acute on chronic renal failure, Lower extremity edema HISTORY OF PRESENT ILLNESS: This is a 64 year old male with a past medical history of Diabetes mellitus type2, hypertension, CKD, history of CVA, and CHF He presented to the emergency department with a chief complaint of bilateral lower extremities and testicles. She was admitted with a diagnosis of JOAQUÍN on CKD. We have been consulted for renal failure Renal function remains elevated Electrolytes are stable. Hemoglobin is stable at 10.8. He was seen in the medical floor, continues to complain of lower extremity edema No family at the bedside Progress remains guarded REVIEW OF SYSTEMS: GENERAL:Positive for lower extremity edema NEUROLOGIC: Negative for any blurry vision, blind spots, double vision, facial asymmetry, dysphagia, dysarthria, hemiparesis, hemisensory deficits, vertigo, ataxia. HEENT: Negative for any head trauma, neck trauma, neck stiffness, photophobia, phonophobia, sinusitis, rhinitis. CARDIAC: Negative for any chest pain, dyspnea on exertion, paroxysmal nocturnal dyspnea, peripheral edema. PULMONARY: Negative for any shortness of breath, wheezing, COPD, or TB exposure. GASTROINTESTINAL: Negative for any abdominal pain, nausea, vomiting, bright red blood per rectum, melena. GENITOURINARY: Negative for any dysuria, hematuria, incontinence. INTEGUMENTARY: Negative for any rashes, cuts, insect bites. RHEUMATOLOGIC: Negative for any joint pains, photosensitive rashes, history of vasculitis or kidney problems. HEMATOLOGIC: Negative for any abnormal bruising, frequent infections or bleeding. PAST MEDICAL HISTORY: Diabetes mellitus type2 Hypertension CKD CVA CHF PAST SURGICAL HISTORY: Appendectomy PAST SOCIAL HISTORY: Denies the use of alcohol, tobacco, or illicit drugs FAMILY HISTORY: Noncontributory PHYSICAL EXAM: GENERAL: Alert and oriented x 3. No acute distress. Well-nourished. EYES: EOMI. Anicteric. HENT: Moist mucous membranes. No scleral icterus. No cervical lymphadenopathy. LUNGS: Clear to auscultation bilaterally. No accessory muscle use. CARDIOVASCULAR: Regular rate and rhythm. No murmur. No JVD. ABDOMEN: Soft, non-tender and non-distended. No palpable masses. EXTREMITIES: 2+ edema. Non-tender. SKIN: No rashes or lesions. Warm. NEUROLOGIC: No focal neurological deficits. CN II-XII grossly intact, but not individually tested. PSYCHIATRIC: Cooperative. Appropriate mood and affect. MEDICATIONS: [ ] Current Medications Medications (Trade) Dose Ordered Sig/Anjelica Route PRN Reason Start Time Stop Time Status Last Admin Dose Admin Acetaminophen (TYLenol 325MG TAB) 650 mg Q6H PRN PO TEMPERATURE GREATER THAN 101.5 08/14/24 19:30 09/13/24 19:29 Aspirin (Aspirin 81mg Chew Tab) 324 mg ONCE STAT PO 08/14/24 18:36 08/14/24 18:37 DC 08/14/24 18:52 324 MG Aspirin (Aspirin 81mg Ec Tab) 81 mg DAILY PO 08/15/24 09:00 09/14/24 08:59 08/15/24 08:24 81 MG Atorvastatin Calcium (LIPItor 20MG) 20 mg DAILY PO 08/16/24 09:00 09/15/24 08:59 Bumetanide (Bumex 1mg Tab) 1 mg BID PO 08/15/24 21:00 09/14/24 20:59 Docusate Sodium (COLace 100MG CAP) 100 mg BID PO 08/15/24 10:00 09/14/24 09:59 08/15/24 10:26 100 MG Furosemide (LASix 40MG VIAL) 40 mg ONCE STAT IV 08/14/24 18:37 08/14/24 18:38 DC 08/14/24 18:52 40 MG Hydralazine HCl (APRESOLine 20MG INJ) 10 mg Q6H PRN IV For:SBP above 160;DBP above 90 08/14/24 19:30 09/13/24 19:29 Hydromorphone HCl (DiLAUDid 0.5MG INJ) 0.5 mg Q6H PRN IVP SEVERE PAIN (7-10) 08/15/24 10:00 08/20/24 09:59 08/15/24 10:26 0.5 MG Hydroxyzine HCl (ATArax 25MG TAB) 50 mg BID PO 08/15/24 21:00 09/14/24 20:59 Insulin Human Regular (humuLIN R 100 UNIT/ML 3ML) INSULIN SLIDING SCAL... ACHS SQ 08/14/24 21:00 09/13/24 20:59 08/14/24 21:41 6 UNIT Latanoprost (Xalatan) 1 GGT OP HS ANJELICA HS OP 08/15/24 21:00 09/14/24 20:59 Levothyroxine Sodium (SYNTHroid 50MCG TAB) 50 mcg DAILY PO 08/16/24 09:00 09/15/24 08:59 Losartan Potassium (CozAAR 25MG TAB) 25 mg DAILY PO 08/16/24 09:00 09/15/24 08:59 Metoprolol Succinate (TopROL XL) 50 mg DAILY PO 08/16/24 09:00 09/15/24 08:59 Morphine Sulfate (morPHINE 4MG SYG) 2 mg Q4H PRN IV SEVERE PAIN (7-10) 08/14/24 19:30 08/21/24 19:29 08/15/24 14:04 2 MG Nitroglycerin (Nitrostat) 0.4 mg AD PRN SL CHEST PAIN 08/14/24 19:30 09/13/24 19:29 Ondansetron HCl (zoFRAN 4MG INJ) 4 mg Q6H PRN IV NAUSEA/VOMITING 08/14/24 19:30 09/13/24 19:29 Pharmacy Profile Note (Lace Assessment) 1 each AD MISC 08/15/24 15:00 08/22/24 14:59 Tamsulosin HCl (FloMAX) 0.4 mg DAILY PO 08/15/24 10:00 09/14/24 09:59 08/15/24 10:25 0.4 MG Vital Signs (last 8hr) Date Time Temp Pulse Resp B/P (MAP) Pulse Ox O2 Delivery O2 Flow Rate FiO2 08/15/24 12:00 98.1 101 16 123/76 98 Room Air 08/15/24 08:18 97.7 104 16 126/99 100 Room Air 08/15/24 08:00 98 Room Air* 0 21 DIAGNOSTICS / RADIOLOGY: REASON: swelling/pain, bilateral ORDERING PHYSICIAN: MICHELLE GARVEY NP PROCEDURE: SCROTUM - US SCROTUM & CONTENTS US SCROTUM & CONTENTS HISTORY: Swelling COMPARISON: None TECHNIQUE: Duplex scrotal ultrasound study was performed. FINDINGS: The right testes measures 2.9 x 2.2 x 2.7 cm. The left testes measures 3 x 2.2 x 2.2 cm. No evidence of intratesticular mass or abnormal calcification is seen. Decreased flow is demonstrated in the testes and epididymides bilaterally. There are bilateral moderate hydrocele. There is right epididymal head cyst measuring 2.4 x 2.9 cm. Severe scrotal edema is seen. Scrotal wall thickening is seen with sclerotic edema with right measuring 13 mm in thickness and left measuring 20 mm in thickness IMPRESSION: 1. No evidence of intratesticular mass is seen. 2. Decreased flow is demonstrated of both testes and epididymides. There are bilateral moderate hydrocele. Scrotal edema is seen. DICTATED BY: MIKAYLA CORRIGAN REASON: SOB ORDERING PHYSICIAN: MICHELLE GARVEY NP PROCEDURE: CXR1VW - CHEST 1VW CHEST 1VW HISTORY: Shortness of breath COMPARISON: 07/26/2024 FINDINGS: A frontal projection of the chest was obtained. Mild bilateral pulmonary infiltrates are seen may be related to mild pulmonary vascular congestion with possible superimposed pneumonitis. The heart is borderline enlarged. Degenerative changes are seen. No evidence of aortic calcification is seen. IMPRESSION: 1. Mild bilateral pulmonary infiltrates are seen may be related to mild pulmonary vascular congestion with possible superimposed pneumonitis. DICTATED BY: BETH CORRIGAN MD DATE: 08/14/241831 LABORATORY: [ ] Hematology Labs: Test 08/15/24 05:00 Range/Units White Blood Count 5.8 4.8-10.8 K/uL Red Blood Count 4.02 L 4.50-6.20 MIL/uL Hemoglobin 10.8 L 14.0-18.0 g/dL Hematocrit 33.1 L 42-54 % Mean Corpuscular Volume 82.3 79-99 fL Mean Corpuscular Hemoglobin 26.9 L 27.0-33.0 pg Mean Corpuscular Hemoglobin Concent 32.6 32.0-36.0 g/dL Red Cell Distribution Width 17.5 H 11.0-15.5 % Platelet Count 217 130-400 K/uL Mean Platelet Volume 10.4 7.5-10.5 fL Immature Granulocyte % (Auto) 0.3 0-1 % Neutrophils (%) (Auto) 58.4 40.0-77.0 % Lymphocytes (%) (Auto) 16.2 L 21.0-51.0 % Monocytes (%) (Auto) 19.1 H 3.0-13.0 % Eosinophils (%) (Auto) 4.8 0.0-8.0 % Basophils (%) (Auto) 1.2 0.0-5.0 % Neutrophils # (Auto) 3.4 1.8-7.7 K/uL Lymphocytes # (Auto) 0.9 L 1.0-4.8 K/uL Monocytes # (Auto) 1.1 H 0.1-1.0 K/uL Eosinophils # (Auto) 0.28 0.00-0.70 K/uL Basophils # (Auto) 0.07 0.00-0.20 K/uL Absolute Immature Granulocyte (auto 0.02 0-1 K/uL Nucleated Red Blood Cells 0.0 0.0-0.19 % White Cell Morphology Comment See comments Chemistry Labs: Test 08/15/24 12:18 08/15/24 11:42 08/15/24 05:00 08/14/24 21:12 Range/Units Troponin I High Sensitivity 991 *H 4-75 ng/L Whole Blood Glucose 129 #H 70-110 MG/DL Sodium Level 137 136-145 mmol/L Potassium Level 4.7 3.5-5.1 mmol/L Chloride Level 104 101-111 mmol/L Carbon Dioxide Level 25 21-32 mmol/L Blood Urea Nitrogen 71 H 7-18 mg/dL Creatinine 3.3 H 0.5-1.3 mg/dL Glomerular Filtration Rate Calc 20 >90 mL/min Random Glucose 94 # 70-105 mg/dL Hemoglobin A1c 9.5 H 4.0-6.0 % Estimated Average Glucose (eAG) 226 H 70-126 mg/dL Total Calcium 8.6 8.5-10.1 mg/dL Phosphorus Level 4.5 2.5-4.9 mg/dL Magnesium Level 2.10 1.80-2.40 mg/dL Bedside Glucose Comment Notified Nurse Test 08/14/24 17:30 Range/Units B-Type Natriuretic Peptide 2500 H 0-100 pg/mL ASSESSMENT: Acute on Chronic renal failure Anasarca Elevated troponin Uncontrolled Diabetes mellitus type2 Acute on chronic CHF with LVEF 20% stage III diastolic dysfunction Hypertension History of CVA Diabetic retinopathy and neuropathy S/p post IVC filter placement secondary to DVT and contraindication to anticoagulation. PLAN: Labs, diagnostic, radiologic exams reviewed and interpreted by myself and supervising physician. We have reviewed external records in detail Obtain UA, random urine protein and creatinine Start Nephro-Pura daily Require close monitoring of renal function and electrolytes Order CBC, CMP, iron panel, ferritin, TSH, and electrolytes in am Continue with antibiotics Renal diabetic diet BiPAP as necessary, for respiratory distress Monitor blood pressure adjust medication doses as needed Avoid hypotensive episodes May use Dilaudid 0.5 mg IV every 6 hours as needed for severe pain Monitor blood sugars Strict intake, output, and daily weight should be monitored Please renally adjust medications Avoid nephrotoxic and nonsteroidal drugs Avoid contrast if possible Will continue to monitor renal function, anemia, electrolytes Treatment plan discussed with patient Questions were answered We have discussed with the other team physicians in detail about the care plan We will continue to monitor the patient closely Thank you for allowing us to participate in the care of this patient ATTESTATION BY PHYSICIAN I have seen and examined the patient. I reviewed the documentation, medical decision making, and treatment plan as noted by the mid-level provider above. I agree with the findings and plan of care. DENZEL ACKERMAN MD, [facility] Aug 15, 2024 15:27
--- NOTE | 2024-08-15 16:20 | NUR ---
[facility] CM SPOKE TO PT ASSESSMENT DONE. PT IS INDEPENDENT PRIOR TO ADMISSION, LIVES AT HOME WITH SISTER AND BROTHER. PT HAS A CANE, LEGALLY BLIND. DENIES ANY OTHER EQUIPMENT/SERVICES. FEELS SAFE TO GO BACK HOME, FAMILY ABLE TO ASSIST WITH TRANSPORTATION AND NEEDS NECESSARY. DCP HOME ONCE STABLE. CM TO CONTINUE TO FOLLOW UP. Addendum: 08/16/24 at 1621 by NICOLÁS CASTELLANOS LVN CM Amended: Links added.
[2024-08-15] MEDS: BUMETANIDE 1 MG TAB PO SCH (20:49)
[2024-08-15] MEDS: hydrOXYzine 25 MG TABLET PO SCH (20:49)
[2024-08-15] MEDS: LATANOPROST 2.5 ML DROPS OP SCH (20:50)
--- NOTE | 2024-08-15 21:25 | CONS ---
CONSULTATION NOTE Date of Service: Aug 15, 2024 Reason for Consultation: [ ] Requesting Physician: [ ] HISTORY OF PRESENT ILLNESS: [ ] REVIEW OF SYSTEMS CONSTITUTIONAL: Denies fever, chills, or fatigue. HEAD/FACE: No signs of trauma. EENT: Denies eye pain, blurred vision, double vision, or light sensitivity. RESPIRATORY: Denies shortness of breath, cough, wheezing CARDIOVASCULAR: Denies chest pain, palpitation, syncope GASTROINTESTINAL/ABDOMINAL: Denies abdominal pain, constipation, diarrhea, nausea or vomiting GENITOURINARY: Denies dysuria or hematuria. MUSCULOSKELETAL: Denies joint pain, tenderness, or trauma. INTEGUMENTARY: Denies rash or itchiness NEUROLOGICAL/PSYCH: Denies anxiety, depression, heat or cold intolerance. PAST MEDICAL HISTORY: [ ] PAST SURGICAL HISTORY: [ ] PAST SOCIAL HISTORY: [ ] FAMILY HISTORY: [ ] Coded Allergies: No Known Drug Allergies (Unverified Allergy, Unknown, 07/04/24) PHYSICAL EXAM EYES: Anicteric. Pupils equal and reactive. HENT: No oral thrush seen, moist Oral mucosa NECK: Supple, no JVD or thyromegaly. LUNGS: Good air entry. No rales, no rhonchi. CARDIOVASCULAR: S1, S2 regular. No murmur heard. ABDOMEN: Soft, non tender, bowel sounds present, no organomegaly CENTRAL NERVOUS SYSTEM: Awake, alert, oriented x 3. No focal deficits. SKIN: No rashes, no swelling. LYMPHATICS: No peripheral lymphadenopathy MUSCULOSKELETAL: No joint swelling, erythema or tenderness. EXTREMITIES: No cyanosis or clubbing BACK: No deformity, no pressure ulcer. GENITOURINARY: No dysuria or hematuria Vital Sign (Last 24 Hours) 08/15/24 08/15/24 08:00 20:00 Temp 98.1 Pulse 94 Resp 18 B/P (MAP) 106/80 Pulse Ox 97 O2 Delivery Room Air O2 Flow Rate 0 FiO2 21 LABS: Laboratory: Test 08/15/24 19:32 08/15/24 13:00 08/15/24 12:18 08/15/24 05:00 Range/Units Whole Blood Glucose 181 H 70-110 MG/DL Urine Random Creatinine 20.70 L 30-135 mg/dL Urine Random Total Protein 21.4 #H 0-11.9 mg/dL Troponin I High Sensitivity 991 *H 4-75 ng/L White Blood Count 5.8 4.8-10.8 K/uL Red Blood Count 4.02 L 4.50-6.20 MIL/uL Hemoglobin 10.8 L 14.0-18.0 g/dL Hematocrit 33.1 L 42-54 % Mean Corpuscular Volume 82.3 79-99 fL Mean Corpuscular Hemoglobin 26.9 L 27.0-33.0 pg Mean Corpuscular Hemoglobin Concent 32.6 32.0-36.0 g/dL Red Cell Distribution Width 17.5 H 11.0-15.5 % Platelet Count 217 130-400 K/uL Mean Platelet Volume 10.4 7.5-10.5 fL Immature Granulocyte % (Auto) 0.3 0-1 % Neutrophils (%) (Auto) 58.4 40.0-77.0 % Lymphocytes (%) (Auto) 16.2 L 21.0-51.0 % Monocytes (%) (Auto) 19.1 H 3.0-13.0 % Eosinophils (%) (Auto) 4.8 0.0-8.0 % Basophils (%) (Auto) 1.2 0.0-5.0 % Neutrophils # (Auto) 3.4 1.8-7.7 K/uL Lymphocytes # (Auto) 0.9 L 1.0-4.8 K/uL Monocytes # (Auto) 1.1 H 0.1-1.0 K/uL Eosinophils # (Auto) 0.28 0.00-0.70 K/uL Basophils # (Auto) 0.07 0.00-0.20 K/uL Absolute Immature Granulocyte (auto 0.02 0-1 K/uL Nucleated Red Blood Cells 0.0 0.0-0.19 % White Cell Morphology Comment See comments Sodium Level 137 136-145 mmol/L Potassium Level 4.7 3.5-5.1 mmol/L Chloride Level 104 101-111 mmol/L Carbon Dioxide Level 25 21-32 mmol/L Blood Urea Nitrogen 71 H 7-18 mg/dL Creatinine 3.3 H 0.5-1.3 mg/dL Glomerular Filtration Rate Calc 20 >90 mL/min Random Glucose 94 # 70-105 mg/dL Hemoglobin A1c 9.5 H 4.0-6.0 % Estimated Average Glucose (eAG) 226 H 70-126 mg/dL Total Calcium 8.6 8.5-10.1 mg/dL Phosphorus Level 4.5 2.5-4.9 mg/dL Magnesium Level 2.10 1.80-2.40 mg/dL Test 08/14/24 21:12 08/14/24 21:05 08/14/24 17:30 Range/Units Bedside Glucose Comment Notified Nurse Urine Color COLORLESS YELLOW Urine Appearance CLEAR CLEAR Urine pH 5.0 5.0-8.0 Urine Specific [place] 1.007 1.001-1.031 Urine Protein NEGATIVE NEGATIVE mg/dL Urine Glucose (UA) NEGATIVE NEGATIVE mg/dL Urine Ketones NEGATIVE NEGATIVE mg/dL Urine Occult Blood +- (TRACE) H NEGATIVE Urine Nitrate NEGATIVE NEGATIVE Urine Bilirubin NEGATIVE NEGATIVE mg/dL Urine Urobilinogen 0.2 0.2-1.0 mg/dL Urine Leukocyte Esterase NEGATIVE NEGATIVE Anabelle/uL Urine RBC 0-1 0-1 /HPF Urine WBC 0-1 0-1 /HPF Urine Squamous Epithelial Cells RARE 0-2 /HPF Urine Bacteria None None Seen /HPF Urine Hyaline Casts 6-10 H 0-1 /LPF /LPF Urine Osmolality 340 50-1200 mOsm/kg Urine Random Sodium 110 40-220 mmol/l B-Type Natriuretic Peptide 2500 H 0-100 pg/mL DIAGNOSTICS / RADIOLOGY: [ ] PROBLEM LIST : Medical Problems: (1) CHF exacerbation ICD Codes: I50.9 - Heart failure, unspecified (2) CKD (chronic kidney disease) ICD Codes: N18.9 - Chronic kidney disease, unspecified (3) NSTEMI (non-ST elevated myocardial infarction) ICD Codes: I21.4 - Non-ST elevation (NSTEMI) myocardial infarction PLAN: [ ] BERNABE ROLDAN Aug 15, 2024 21:25
--- NOTE | 2024-08-15 22:39 | CONS ---
CONSULT NOTE: Reason for consult: CHF HPI/story at presentation: This is a pleasant gentleman with past medical history as per present with complaints of shortness of breath, lower extremity meniscal edema. He has known history of multivessel coronary disease, currently managed medically because patient refused bypass surgery because he does not want to be on anticoagulation in the perioperative. Patient also had elevated troponins during hospitalization (anticoagulation for this as well because of issues with retina and is worried about losing more vision. No active issues with chest pain at this time. On diuresis and failed outpatient diuretic therapy. Subjective: 08/15/2024 no complaints Past medical history: See below Allergies, Meds See chart Review of systems Review of Systems Constitutional: Negative for chills and fever. HENT: Negative for ear discharge and ear pain. Eyes: Negative for photophobia and discharge. Respiratory: Negative for cough, sputum production and stridor. Cardiovascular: Negative for chest pain and palpitations. Gastrointestinal: Negative for diarrhea and vomiting. Genitourinary: Negative for frequency. Musculoskeletal: Negative for myalgias. Skin: Negative for rash. Neurological: Negative for focal weakness and seizures. Endo/Heme/Allergies: Negative for polydipsia. Psychiatric/Behavioral: Negative for hallucinations. Vitals see chart PHYSICAL EXAMINATION GENERAL: The patient is alert and oriented*3 HEENT: Nonicteric sclerae, non traumatic HEART: Regular rate and rhythm with no murmurs LUNGS: Clear to auscultation bilaterally ABDOMEN: No acute issues, non tender GENITAL, RECTAL: deferred SKIN: No rash NEUROLOGIC: NFND EXTREMITIES:EDEMA 07/2024 ASSESSMENT EXACERBATION OF CHF, CARDIOMYOPATHY Noncompliant with diuretics at home History of ischemic cardiomyopathy MVCAD on cath 07/2024 Stress test with infarction pattern, 02/2024 Ejection fraction of 15 to 20%, 06/2024 On diuresis with Bumex, 06/2024 DVT diagnosed 07/2024 s/p IVC filter NSTEMI Initial troponin of 1600, trending down HEMATURIA Moderate hematuria, 06/2024 CHRONIC KIDNEY DISEASE Stage III 3.4at presentation Creatinine at discharge from hospital, 06/2024 was 2.2 HYPERTENSION HYPERLIPIDEMIA DIABETES, TOBACCO USE CORE MEASURES Not on guideline directed medical therapy for cardiomyopathy given renal dysfunction OTHER MEDICAL PROBLEMS Anxiety disorder Diabetic neuropathy PLAN 08/15/2024 Currently, has significant issues with swelling in the scrotum, lower extremity edema. Still not interested in anticoagulation at this time, not interested in bypass at this time. Troponins are elevated and progressive muscle loss with significant troponinemia discussed and patient understands risk but still does not want to proceed with surgery at this time. Renal function was elevated at presentation at 3.3. Testicular ultrasound with no mass but did show evidence of bilateral hydroceles. Start dobutamine to help with diuresis and renal function ATTESTATION I was involved substantially in the care of this patient Number and complexity of problems addressed 1 illness with severe exacerbation Amount and or complexity of data Review of prior external note(s) from each unique source - Number 2+_ Ordering of each unique test - Number 0 Review of the result(s) of each unique test - Number 2+ Assessment requiring an independent historian(s) No Independent interpretation of test performed by another MD/QHCP/appropriate source (not separately reported) No Discussion of management or test interpretation with external MD/QHCP/appropriate source (not separately reported) No Risk status (cardiac, billing related) high GUSTAVO PRUITT MD Aug 15, 2024 22:39
[2024-08-16] VITALS (12 sets, daily range): BP systolic 72–147; BP diastolic 38–124; PULSE 44–111; RESP 17–20; TEMP 97.3–97.9; O2SAT 97–100
[2024-08-16 05:03] LABS: BASOPHILS # (AUTO) 0.05 K/uL (0.00-0.20); BASOPHILS % (AUTO) 0.9 % (0.0-5.0); EOSINOPHILS # (AUTO) 0.22 K/uL (0.00-0.70); EOSINOPHILS % (AUTO) 3.8 % (0.0-8.0); HEMATOCRIT 32.8 % (42-54); IMMATURE GRANULOCYTE ABSOLUTE 0.02 K/uL (0-1); LYMPHOCYTES # (AUTO) 0.5 K/uL (1.0-4.8); MEAN CORPUSCULAR HEMOGLOBIN 26.4 pg (27.0-33.0); MEAN CORPUSCULAR HGB CONC 31.7 g/dL (32.0-36.0); MEAN CORPUSCULAR VOLUME 83.2 fL (79-99); MONOCYTES # (AUTO) 0.7 K/uL (0.1-1.0); MONOCYTES % (AUTO) 12.1 % (3.0-13.0); NEUTROPHILS # (AUTO) 4.3 K/uL (1.8-7.7); NEUTROPHILS % (AUTO) 73.9 % (40.0-77.0); PLATELET COUNT (AUTO) 191 K/uL (130-400); RED BLOOD CELL COUNT(AUTO) 3.94 MIL/uL (4.50-6.20); RED CELL DISTRIBUTION WIDTH 17.7 % (11.0-15.5); WHITE BLOOD COUNT (AUTO) 5.9 K/uL (4.8-10.8)
[2024-08-16 05:19] LABS: % IRON SATURATION 15.1 % (30-44)
[2024-08-16 05:32] LABS: ALBUMIN 2.3 g/dL (3.5-5.0); BILIRUBIN,TOTAL 0.9 mg/dL (0.2-1.0); CREATININE 3.3 mg/dL (0.5-1.3); MAGNESIUM 1.9 mg/dL (1.80-2.40); POTASSIUM 4.5 mmol/L (3.5-5.1); THYROID STIMULATING HORMONE 25.36 uIU/mL (0.36-3.74); TOTAL PROTEIN, SERUM 7.6 g/dL (6.0-8.3)
--- NOTE | 2024-08-16 08:29 | PN ---
[facility] PROGRESS NOTE Date of Service: Aug 16, 2024 Time of Service: 08:25 SUBJECTIVE: [ ] This is a 64-year-old male who is well known to [facility] for fluid overload chronic CHF with EF of 20%. Chief complaint of anasarca to lower extremity scrotal edema and pain to scrotal. Patient has a significant social determinants noncompliance with treatment in the past. On last admission patient had to be started on small dose of dobutamine per his primary baseball inspector and repairer's which has been already consulted we will follow his recommendation patient received a dose of Bumex1 mg IV now. Patient on room air. Denied chest pain. 08/16/24 patient is seen and examined with attending. Reviewed chart and discussed plan of care. Review note baseball inspector and repairer's in detail had a discussion with patient of troponin elevated and progressive muscle loss patient understands risks but still does not want to proceed with surgery. Patient was started on dobutamine to help with diuresis and renal function. Patient denies chest pain events overnight. REVIEW OF SYSTEMS CONSTITUTIONAL: Denies fevers, chills, or night sweats. No unintentional weight loss reported. NEUROLOGICAL: Denies headache, amaurosis fugax, motor weakness, sensory deficit, vertigo/spinning sensation, gait abnormalities, or tremors. ENT: No hearing loss, otalgia, otorrhea, rhinitis, rhinorrhea, hoarseness, or sore throat. CARDIOVASCULAR: Denies any exertional angina, dyspnea on exertion, orthopnea, paroxysmal nocturnal dyspnea, palpitations, life-threatening arrhythmias, claudication. PULMONARY: Denies any shortness of breath, cough, phlegm/sputum, hemoptysis, pleuritic chest pain. SLEEP: Denies morning headaches, daytime somnolence or napping. Denies di fficulty falling asleep, staying asleep, waking from sleep. Denies knowledge of snoring. GASTROINTESTINAL: Denies any type of dysphagia to either liquids or solids. Denies nausea, vomiting, pyrosis, early satiety, abdominal pain, diarrhea, constipation, or changes in stool consistency or caliber. Denies coffee-ground emesis, hematemesis, hematochezia, or melanotic stools. GENITOURINARY: Denies frequency, urgency, nocturia, hematuria or incontinence (Storage/Irritative symptoms.) Low urinary stream, straining to void, urinary intermittency or hesitancy, splitting of the voiding stream, terminal dribbling. ENDOCRINOLOGIC: Denies polyuria, polydipsia, polyphagia or heat/cold intolerances. HEMATOLOGIC: Denies thrombophilia/previous clots, or coagulopathy/bleeding disorders. ONCOLOGIC: Denies personal history of malignancy. DERMATOLOGIC: Denies rashes or pruritus. PSYCHIATRIC: Denies any suicidal or homicidal ideation. Denies hallucinations. PHYSICAL EXAM GENERAL APPEARANCE: The patient is awake, alert, and oriented, in no acute cardiopulmonary distress. NEUROLOGICAL: Cranial nerves II-XII grossly intact. Motor is 5/5 in bilateral upper and lower extremities proximal to distal. No sensory deficits. HEENT: Face is symmetric. Pupils are equal and reactive. Extraocular movements are intact. NECK: Supple. No JVD. No thyromegaly. No submental, submandibular, pre- /postauricular, occipital or supraclavicular lymphadenopathy. CHEST: Normal chest expansion. No Telemetry. LUNGS: Absence of any rales, rhonchi or any wheezing. CARDIOVASCULAR: Regular. S1 and S2 normal. No appreciable rubs, murmurs or gallops. ABDOMEN: Soft, nontender, and nondistended. There is no rebound, voluntary guarding, or rigidity. : Deferred. No Guillermo. EXTREMITIES: Non-edematous and not cyanotic. No clubbing. Good capillary refill. SKIN: No skin breakdown. Vital Signs (last 8hr) Date Time Temp Pulse Resp B/P (MAP) Pulse Ox O2 Delivery O2 Flow Rate FiO2 08/16/24 04:00 97.7 109 17 111/77 95 Room Air 21 LABS: Laboratory: Test 08/16/24 05:14 08/16/24 04:39 08/15/24 13:00 08/15/24 12:18 Range/Units Whole Blood Glucose 103 70-110 MG/DL White Blood Count 5.9 4.8-10.8 K/uL Red Blood Count 3.94 L 4.50-6.20 MIL/uL Hemoglobin 10.4 L 14.0-18.0 g/dL Hematocrit 32.8 L 42-54 % Mean Corpuscular Volume 83.2 79-99 fL Mean Corpuscular Hemoglobin 26.4 L 27.0-33.0 pg Mean Corpuscular Hemoglobin Concent 31.7 L 32.0-36.0 g/dL Red Cell Distribution Width 17.7 H 11.0-15.5 % Platelet Count 191 130-400 K/uL Mean Platelet Volume 10.5 7.5-10.5 fL Immature Granulocyte % (Auto) 0.3 0-1 % Neutrophils (%) (Auto) 73.9 40.0-77.0 % Lymphocytes (%) (Auto) 9.0 L 21.0-51.0 % Monocytes (%) (Auto) 12.1 3.0-13.0 % Eosinophils (%) (Auto) 3.8 0.0-8.0 % Basophils (%) (Auto) 0.9 0.0-5.0 % Neutrophils # (Auto) 4.3 1.8-7.7 K/uL Lymphocytes # (Auto) 0.5 L 1.0-4.8 K/uL Monocytes # (Auto) 0.7 0.1-1.0 K/uL Eosinophils # (Auto) 0.22 0.00-0.70 K/uL Basophils # (Auto) 0.05 0.00-0.20 K/uL Absolute Immature Granulocyte (auto 0.02 0-1 K/uL Nucleated Red Blood Cells 0.0 0.0-0.19 % Sodium Level 138 136-145 mmol/L Potassium Level 4.5 3.5-5.1 mmol/L Chloride Level 102 101-111 mmol/L Carbon Dioxide Level 25 21-32 mmol/L Blood Urea Nitrogen 72 H 7-18 mg/dL Creatinine 3.3 H 0.5-1.3 mg/dL Glomerular Filtration Rate Calc 20 >90 mL/min Random Glucose 101 70-105 mg/dL Total Calcium 8.5 8.5-10.1 mg/dL Magnesium Level 1.90 1.80-2.40 mg/dL Iron Level 46 L 65-175 mcg/dL Total Iron Binding Capacity 304 250-450 mcg/dL Percent Iron Saturation 15.1 L 30-44 % Ferritin 110 30-400 ng/mL Total Bilirubin 0.9 0.2-1.0 mg/dL Aspartate Amino Transf (AST/SGOT) 63 H 10-37 U/L Alanine Aminotransferase (ALT/SGPT) 44 12-78 U/L Alkaline Phosphatase 347 H 50-136 U/L Total Protein 7.6 6.0-8.3 g/dL Albumin 2.3 L 3.5-5.0 g/dL Thyroid Stimulating Hormone (TSH) 25.36 H 0.36-3.74 uIU/mL Urine Osmolality 341 50-1200 mOsm/kg Urine Random Creatinine 20.70 L 30-135 mg/dL Urine Random Total Protein 21.4 #H 0-11.9 mg/dL Troponin I High Sensitivity 991 *H 4-75 ng/L Test 08/15/24 05:00 08/14/24 21:12 08/14/24 21:05 08/14/24 17:30 Range/Units White Cell Morphology Comment See comments Hemoglobin A1c 9.5 H 4.0-6.0 % Estimated Average Glucose (eAG) 226 H 70-126 mg/dL Phosphorus Level 4.5 2.5-4.9 mg/dL Bedside Glucose Comment Notified Nurse Urine Color COLORLESS YELLOW Urine Appearance CLEAR CLEAR Urine pH 5.0 5.0-8.0 Urine Specific [place] 1.007 1.001-1.031 Urine Protein NEGATIVE NEGATIVE mg/dL Urine Glucose (UA) NEGATIVE NEGATIVE mg/dL Urine Ketones NEGATIVE NEGATIVE mg/dL Urine Occult Blood +- (TRACE) H NEGATIVE Urine Nitrate NEGATIVE NEGATIVE Urine Bilirubin NEGATIVE NEGATIVE mg/dL Urine Urobilinogen 0.2 0.2-1.0 mg/dL Urine Leukocyte Esterase NEGATIVE NEGATIVE Anabelle/uL Urine RBC 0-1 0-1 /HPF Urine WBC 0-1 0-1 /HPF Urine Squamous Epithelial Cells RARE 0-2 /HPF Urine Bacteria None None Seen /HPF Urine Hyaline Casts 6-10 H 0-1 /LPF /LPF Urine Random Sodium 110 40-220 mmol/l B-Type Natriuretic Peptide 2500 H 0-100 pg/mL Current Medications Medications (Trade) Dose Ordered Sig/Anjelica Route PRN Reason Start Time Stop Time Status Last Admin Dose Admin Acetaminophen (TYLenol 325MG TAB) 650 mg Q6H PRN PO TEMPERATURE GREATER THAN 101.5 08/14/24 19:30 09/13/24 19:29 Aspirin (Aspirin 81mg Chew Tab) 324 mg ONCE STAT PO 08/14/24 18:36 08/14/24 18:37 DC 08/14/24 18:52 324 MG Aspirin (Aspirin 81mg Ec Tab) 81 mg DAILY PO 08/15/24 09:00 09/14/24 08:59 12/10/24 08:24 81 MG Atorvastatin Calcium (LIPItor 20MG) 20 mg DAILY PO 08/16/24 09:00 09/15/24 08:59 Bumetanide (Bumex 1mg Tab) 1 mg BID PO 08/15/24 21:00 09/14/24 20:59 08/15/24 20:49 1 MG Docusate Sodium (COLace 100MG CAP) 100 mg BID PO 08/15/24 10:00 09/14/24 09:59 08/15/24 20:49 100 MG Furosemide (LASix 40MG VIAL) 40 mg ONCE STAT IV 08/14/24 18:37 08/14/24 18:38 DC 08/14/24 18:52 40 MG Hydralazine HCl (APRESOLine 20MG INJ) 10 mg Q6H PRN IV For:SBP above 160;DBP above 90 08/14/24 19:30 09/13/24 19:29 Hydromorphone HCl (DiLAUDid 0.5MG INJ) 0.5 mg Q6H PRN IVP SEVERE PAIN (7-10) 08/15/24 10:00 08/20/24 09:59 08/15/24 10:26 0.5 MG Hydroxyzine HCl (ATArax 25MG TAB) 50 mg BID PO 08/15/24 21:00 09/14/24 20:59 08/15/24 20:49 50 MG Insulin Human Regular (humuLIN R 100 UNIT/ML 3ML) INSULIN SLIDING SCAL... ACHS SQ 08/14/24 21:00 09/13/24 20:59 08/15/24 20:58 2 UNIT Latanoprost (Xalatan) 1 GGT OP HS ANJELICA HS OP 08/15/24 21:00 09/14/24 20:59 Levothyroxine Sodium (SYNTHroid 50MCG TAB) 50 mcg DAILY PO 08/16/24 09:00 09/15/24 08:59 Losartan Potassium (CozAAR 25MG TAB) 25 mg DAILY PO 08/16/24 09:00 09/15/24 08:59 Metoprolol Succinate (TopROL XL) 50 mg DAILY PO 08/16/24 09:00 09/15/24 08:59 Morphine Sulfate (morPHINE 4MG SYG) 2 mg Q4H PRN IV SEVERE PAIN (7-10) 08/14/24 19:30 08/21/24 19:29 08/15/24 14:04 2 MG Nitroglycerin (Nitrostat) 0.4 mg AD PRN SL CHEST PAIN 08/14/24 19:30 09/13/24 19:29 Ondansetron HCl (zoFRAN 4MG INJ) 4 mg Q6H PRN IV NAUSEA/VOMITING 08/14/24 19:30 09/13/24 19:29 Pharmacy Profile Note (Lace Assessment) 1 each AD MISC 08/15/24 15:00 08/22/24 14:59 Tamsulosin HCl (FloMAX) 0.4 mg DAILY PO 08/15/24 10:00 09/14/24 09:59 08/15/24 10:25 0.4 MG Vitamin B Complex/ Vit C/Folic Acid (Nephrovite Tablet) 1 cap DAILY PO 08/16/24 09:00 09/15/24 08:59 DIAGNOSTICS / RADIOLOGY: [ ] ASSESSMENT: JOAQUÍN on Chronic renal failure POA Cardiac renal syndrome Anasarca wheeping to lower extPOA Scrotum swelling with bilateral moderate hydrocele. POA Elevated troponin, most likely NM Type II triggered by fluid overload EF < 20% POA Uncontrolled Diabetes mellitius type2, POA acute on chronic CHF with LVEF 20% stage III diastolic dysfunction, POA Right lower extremity wound weeping POA Hypertension History of stroke] Recent bilateral vitreous hemorrhage POA Diabetic retinopathy and neuropathy POA Noncompliance with medication Bumex POA Noncompressible thrombus is seen in the right popliteal vein consistent with deep venous thrombosis. not a candidate for anticoagulation therapy POA s/p post IVC filter placement secondary to DVT and contraindication to anticoagulation. PLAN: [ ] admit to PCCU with Tele consultants: DR Regan baseball inspector and repairer started the patient on to dobutamine Home medication resume: Bumex 1 mg IV now then PO BID will continue with Diuresis for cardiomyopathy. will wait for baseball inspector and repairer for further recommendation. Troponin elevation and recurrent myocardial injury in the setting of recurrent CHF cont with monitoring with Tele. fluid restriction : 1.5 liter daily strict I/O daily weight Anasarca wheeping to lower extPOA Scrotum swelling with bilateral moderate hydrocele. Demeaning to help with renal function and diuresis wound care will follow recommendations DVT/GI:ppx patient has IVC filter not a candidate of blood thinner. cont with PUD ppx all questions answered further orders as per response to IV diuretics case discussed to attending Dr Ariel Cavazos Cd This document was generated in part using voice recognition software, occasional wrong word or sound alike substitutions may have occurred due to the inherent limitations of voice recognition software. Read the chart carefully and recognize using context, where the substitutions have occurred. Although every effort was made to edit the content, manager fitness and typing errors may occur ATTESTATION BY PHYSICIAN I have seen and examined the patient. I reviewed the documentation, medical decision making, and treatment plan as noted by the resident provider above. I agree with the findings and plan of care. Eduar Cavazos MD, ELIZABETH NP Aug 16, 2024 08:29
[2024-08-16] MEDS: LoSARTan 25 MG TABLET PO SCH (08:35)
[2024-08-16] MEDS: Vitamin B Complex/Vit C/Folic Acid PO SCH (08:35)
[2024-08-16] MEDS: metOPROLol sucCINATE 50 MG TAB.SR.24H PO SCH (08:36)
[2024-08-16] MEDS: levoTHYROxine 50 MCG TABLET PO SCH (08:36)
[2024-08-16] MEDS: atorVAStatin 20 MG TABLET PO SCH (08:36)
[2024-08-16] MEDS: doBUTamine 250MG/D5 250ML 250 ML IV SCH (17:15)
--- NOTE | 2024-08-16 17:26 | NUR ---
WILL HOLD [employer] COVERAGE. PATIENT DOES NOT WANT TO EAT HIS DINNER
--- NOTE | 2024-08-16 19:56 | PN ---
Reason for consult: CHF HPI/story at presentation: This is a pleasant gentleman with past medical history as per present with complaints of shortness of breath, lower extremity meniscal edema. He has known history of multivessel coronary disease, currently managed medically because patient refused bypass surgery because he does not want to be on anticoagulation in the perioperative. Patient also had elevated troponins during hospitalization (anticoagulation for this as well because of issues with retina and is worried about losing more vision. No active issues with chest pain at this time. On diuresis and failed outpatient diuretic therapy. Subjective: 08/15/2024 no complaints 08/16/2024 no complaints Past medical history: See below Allergies, Meds See chart Review of systems Review of Systems Constitutional: Negative for chills and fever. HENT: Negative for ear discharge and ear pain. Eyes: Negative for photophobia and discharge. Respiratory: Negative for cough, sputum production and stridor. Cardiovascular: Negative for chest pain and palpitations. Gastrointestinal: Negative for diarrhea and vomiting. Genitourinary: Negative for frequency. Musculoskeletal: Negative for myalgias. Skin: Negative for rash. Neurological: Negative for focal weakness and seizures. Endo/Heme/Allergies: Negative for polydipsia. Psychiatric/Behavioral: Negative for hallucinations. Vitals see chart PHYSICAL EXAMINATION GENERAL: The patient is alert and oriented*3 HEENT: Nonicteric sclerae, non traumatic HEART: Regular rate and rhythm with no murmurs LUNGS: Clear to auscultation bilaterally ABDOMEN: No acute issues, non tender GENITAL, RECTAL: deferred SKIN: No rash NEUROLOGIC: NFND EXTREMITIES:EDEMA 07/2024 ASSESSMENT EXACERBATION OF CHF, CARDIOMYOPATHY Noncompliant with diuretics at home History of ischemic cardiomyopathy MVCAD on cath 07/2024 Stress test with infarction pattern, 02/2024 Ejection fraction of 15 to 20%, 06/2024 On diuresis with Bumex, 06/2024 DVT diagnosed 07/2024 s/p IVC filter NSTEMI Initial troponin of 1600, trending down HEMATURIA Moderate hematuria, 06/2024 CHRONIC KIDNEY DISEASE Stage III 3.4at presentation Creatinine at discharge from hospital, 06/2024 was 2.2 HYPERTENSION HYPERLIPIDEMIA DIABETES, TOBACCO USE CORE MEASURES Not on guideline directed medical therapy for cardiomyopathy given renal dysfunction OTHER MEDICAL PROBLEMS Anxiety disorder Diabetic neuropathy PLAN 08/15/2024 Currently, has significant issues with swelling in the scrotum, lower extremity edema. Still not interested in anticoagulation at this time, not interested in bypass at this time. Troponins are elevated and progressive muscle loss with significant troponinemia discussed and patient understands risk but still does not want to proceed with surgery at this time. Renal function was elevated at presentation at 3.3. Testicular ultrasound with no mass but did show evidence of bilateral hydroceles. Start dobutamine to help with diuresis and renal function 08/16/2024 Was started on dobutamine this morning, continue watch renal function, output. Had a spell of hypotension today and therefore, had to be moved to the PCU for further evaluation management. Family is discussing bypass and long-term care with rest of family - but no immediate plans. Ultrasound with evidence of hydrocele. Currently on dobutamine at 5 metoprolol 50 losartan 25 Bumex 1 twice daily will hold beta-demario and losartan given hypotension and dobutamine use. ATTESTATION I was involved substantially in the care of this patient Number and complexity of problems addressed 1 illness with severe exacerbation Amount and or complexity of data Review of prior external note(s) from each unique source - Number 2+_ Ordering of each unique test - Number 0 Review of the result(s) of each unique test - Number 2+ Assessment requiring an independent historian(s) No Independent interpretation of test performed by another MD/QHCP/appropriate source (not separately reported) No Discussion of management or test interpretation with external MD/QHCP/appropriate source (not separately reported) No Risk status (cardiac, billing related) high Vitals/Labs Vital Signs Date Time Temp Pulse Resp B/P (MAP) Pulse Ox O2 Delivery O2 Flow Rate FiO2 08/16/24 18:15 118/56 08/16/24 16:49 68 20 98 Nasal Cannula 2.0 08/16/24 11:20 97.9 21 Laboratory Tests 08/16/24 04:39 Medications Current Medications Aspirin 324 mg ONCE STAT PO Last administered on 08/14/24at 18:52; Start 08/14/24 at 18:36; Stop 08/14/24 at 18:37; Status DC Furosemide 40 mg ONCE STAT IV Last administered on 08/14/24at 18:52; Start 08/14/24 at 18:37; Stop 08/14/24 at 18:38; Status DC Nitroglycerin 0.4 mg AD PRN SL; Start 08/14/24 at 19:30; Stop 09/13/24 at 19:29 Acetaminophen 650 mg Q6H PRN PO; Start 08/14/24 at 19:30; Stop 09/13/24 at 19:29 Ondansetron HCl 4 mg Q6H PRN IV; Start 08/14/24 at 19:30; Stop 09/13/24 at 19:29 Morphine Sulfate 2 mg Q4H PRN IV Last administered on 08/15/24at 14:04; Start 08/14/24 at 19:30; Stop 08/16/24 at 10:42; Status DC Hydralazine HCl 10 mg Q6H PRN IV; Start 08/14/24 at 19:30; Stop 09/13/24 at 19:29 Aspirin 81 mg DAILY PO Last administered on 08/16/24at 08:36; Start 08/15/24 at 09:00; Stop 09/14/24 at 08:59 Insulin Human Regular INSULIN SLIDING SCAL... ACHS SQ Last administered on 08/15/24at 20:58; Start 08/14/24 at 21:00; Stop 09/13/24 at 20:59 Hydromorphone HCl 0.25 mg ONCE ONCE IVP Last administered on 08/14/24at 22:53; Start 08/14/24 at 22:30; Stop 08/14/24 at 22:31; Status DC Atorvastatin Calcium 20 mg DAILY PO Last administered on 08/16/24at 08:36; Start 08/16/24 at 09:00; Stop 08/16/24 at 10:43; Status DC Latanoprost 1 GGT OP HS MARA HS OP; Start 08/15/24 at 21:00; Stop 09/14/24 at 20:59 Losartan Potassium 25 mg DAILY PO Last administered on 08/16/24at 08:35; Start 08/16/24 at 09:00; Stop 08/16/24 at 19:54; Status DC Metoprolol Succinate 50 mg DAILY PO Last administered on 08/16/24at 08:36; Start 08/16/24 at 09:00; Stop 08/16/24 at 19:54; Status DC Hydroxyzine HCl 50 mg BID PO Last administered on 08/16/24at 08:36; Start 08/15/24 at 21:00; Stop 09/14/24 at 20:59 Levothyroxine Sodium 50 mcg DAILY PO Last administered on 08/16/24at 08:36; Start 08/16/24 at 09:00; Stop 09/15/24 at 08:59 Bumetanide 1 mg ONCE ONCE IM Last administered on 08/15/24at 10:25; Start 08/15/24 at 10:00; Stop 08/15/24 at 10:01; Status DC Bumetanide 1 mg BID PO Last administered on 08/16/24at 08:35; Start 08/15/24 at 21:00; Stop 09/14/24 at 20:59 Tamsulosin HCl 0.4 mg ONCE ONCE PO; Start 08/15/24 at 10:00; Stop 08/15/24 at 09:52; Status DC Tamsulosin HCl 0.4 mg DAILY PO Last administered on 08/16/24at 08:35; Start 08/15/24 at 10:00; Stop 09/14/24 at 09:59 Docusate Sodium 100 mg BID PO Last administered on 08/16/24at 08:36; Start 08/15/24 at 10:00; Stop 09/14/24 at 09:59 Docusate Sodium 100 mg ONCE ONCE PO; Start 08/15/24 at 10:00; Stop 08/15/24 at 09:54; Status DC Hydromorphone HCl 0.5 mg Q6H PRN IVP Last administered on 08/16/24at 08:37; Start 08/15/24 at 10:00; Stop 08/20/24 at 09:59 Pharmacy Profile Note 1 each AD [facility] [place]; Start 08/15/24 at 15:00; Stop 08/22/24 at 14:59 Vitamin B Complex/ Vit C/Folic Acid 1 cap DAILY PO Last administered on 08/16/24at 08:35; Start 08/16/24 at 09:00; Stop 09/15/24 at 08:59 Dobutamine HCl/ Dextrose 250 ml @ 0 mls/hr PROTOCOL IV Last administered on 08/16/24at 17:15; Start 08/16/24 at 11:00; Stop 09/15/24 at 10:59 Morphine Sulfate 2 mg Q4H PRN IV; Start 08/16/24 at 11:00; Stop 08/21/24 at 19:29 Atorvastatin Calcium 20 mg HS PO; Start 08/17/24 at 21:00; Stop 09/15/24 at 08:59 Iron Sucrose 200 mg DAILY22 IV; Start 08/16/24 at 22:00; Stop 09/15/24 at 21:59 GUSTAVO PRUITT MD Aug 16, 2024 19:56
[2024-08-16] MEDS ORDERED: COMPOUND IV MISC 1 EACH IVSOLN MISC PRN (22:00)
[2024-08-16] MEDS: IRON sUCROse COMPLEX 100 MG/5 ML VIAL IV SCH (22:00)
--- NOTE | 2024-08-16 22:11 | PN ---
SUBJECTIVE: This patient is critically ill, in renal failure and anemia. The patient is critically ill and being transferred to an OPCCU. The patient has cardiomyopathy. The patient is being considered for starting the dobutamine infusion. The patient has shortness of breath and edema, multivessel coronary artery disease. The patient apparently refused bypass surgery, multiple other comorbidities. REVIEW OF SYSTEMS: CONSTITUTIONAL: Weakness. No fever, chills or rigors. HEENT: With no headache, no oral ulcers, sore throat or difficulty swallowing. RESPIRATORY: With no cough, expectoration, hemoptysis, or pleuritic pain. CARDIOVASCULAR: No orthopnea, PND or shortness of breath. GASTROINTESTINAL: Negative for nausea, vomiting or diarrhea. GENITOURINARY: Negative for dysuria or hematuria. DERMATOLOGICAL: No rashes, pruritus or skin lesion. ENDOCRINE: No polyuria, polydipsia or polyphagia. PSYCHIATRIC: Negative for anxiety and depression. NEUROLOGICAL: No seizure or syncope. PHYSICAL EXAMINATION: GENERAL: Pale, no other distress. VITAL SIGNS: Blood pressure is around 120/82, pulse 97, respiratory rate is 18, afebrile. HEENT: Head is atraumatic. Pupils are round and reactive. Sclerae are anicteric. Conjunctivae not pale. Oral mucosa is not dry. NECK: Supple. No masses or bruits. Thyroid is palpable. Neck has no bruits. CHEST: Shows equal thoracic percussion note being resonant in all areas. CARDIAC: Regular rhythm, no rub, no S3, S4. No parasternal heave. ABDOMEN: No guarding or tenderness. Bowel sounds are normoactive. No free fluid. EXTREMITIES: Has edema. No cyanosis or clubbing. BACK: No tenderness or back deformities. LABORATORY DATA: We have reviewed available labs in detail. Labs have shown hemoglobin is 10.4, hematocrit is 32. Imaging studies are reviewed. BUN of 72, creatinine is 3.3. Other labs have been personally reviewed. Old records have been reviewed. PROBLEMS: Renal failure and cardiomyopathy in a patient who has underlying anasarca with underlying cardiorenal syndrome, severe scrotal swelling, diabetes, cardiomyopathy, ejection fraction of 20%, coronary artery disease, refused CABG in the past apparently, history of stroke, history of hypertension and multiple other comorbidities, previous IVC filter. PLAN: * The patient is critically ill. * Transfer to ICU or PCCU for dobutamine. * Continue followup on renal function. * Continue with diuretics. * Continue monitoring of electrolytes. * Nonsteroidal drugs to be avoided. Labs and x-rays were personally reviewed and interpreted. We have discussed with other team members. Continue with monitoring of anemia. Avoid nonsteroidal drug, nephrotoxic. Dialysis may be considered in future, but poor candidate for this severe cardiomyopathy. We will follow up closely. Weight monitoring. I have reviewed the previous record, external records, discussed with other team members and IV Dilaudid can be used for pain 0.5 q. 6. Thank you for this patient. TID: [id number] RECEIPT: [id number]
[2024-08-17] VITALS (7 sets, daily range): BP systolic 96–126; BP diastolic 63–74; PULSE 89–115; RESP 18–20; TEMP 97.7–98.4; O2SAT 95–97
[2024-08-17 03:41] LABS: BASOPHILS # (AUTO) 0.02 K/uL (0.00-0.20); BASOPHILS % (AUTO) 0.4 % (0.0-5.0); EOSINOPHILS # (AUTO) 0.19 K/uL (0.00-0.70); HEMATOCRIT 32.1 % (42-54); IMMATURE GRANULOCYTE ABSOLUTE 0.01 K/uL (0-1); LYMPHOCYTES # (AUTO) 0.8 K/uL (1.0-4.8); LYMPHOCYTES % (AUTO) 17.6 % (21.0-51.0); MEAN CORPUSCULAR HEMOGLOBIN 26.3 pg (27.0-33.0); MEAN CORPUSCULAR HGB CONC 31.5 g/dL (32.0-36.0); MEAN CORPUSCULAR VOLUME 83.6 fL (79-99); MONOCYTES # (AUTO) 0.9 K/uL (0.1-1.0); MONOCYTES % (AUTO) 18.3 % (3.0-13.0); NEUTROPHILS # (AUTO) 2.8 K/uL (1.8-7.7); NEUTROPHILS % (AUTO) 59.5 % (40.0-77.0); PLATELET COUNT (AUTO) 172 K/uL (130-400); RED BLOOD CELL COUNT(AUTO) 3.84 MIL/uL (4.50-6.20); RED CELL DISTRIBUTION WIDTH 18.1 % (11.0-15.5); WHITE BLOOD COUNT (AUTO) 4.7 K/uL (4.8-10.8)
[2024-08-17 03:55] LABS: ALBUMIN 2.2 g/dL (3.5-5.0); BILIRUBIN,TOTAL 0.7 mg/dL (0.2-1.0); CREATININE 3.5 mg/dL (0.5-1.3); PHOSPHORUS 4.4 mg/dL (2.5-4.9); POTASSIUM 4.3 mmol/L (3.5-5.1); TOTAL PROTEIN, SERUM 7.2 g/dL (6.0-8.3)
--- NOTE | 2024-08-17 10:43 | PN ---
[facility] PROGRESS NOTE Date of Service: Aug 17, 2024 Time of Service: 10:38 SUBJECTIVE: [ ] This is a 64-year-old male who is well known to [facility] for fluid overload chronic CHF with EF of 20%. Chief complaint of anasarca to lower extremity scrotal edema and pain to scrotal. Patient has a significant social determinants noncompliance with treatment in the past. On last admission patient had to be started on small dose of dobutamine per his primary video tape editor's which has been already consulted we will follow his recommendation patient received a dose of Bumex1 mg IV now. Patient on room air. Denied chest pain. 08/16/24 patient is seen and examined with attending. Reviewed chart and discussed plan of care. Review note video tape editor's in detail had a discussion with patient of troponin elevated and progressive muscle loss patient understands risks but still does not want to proceed with surgery. Patient was started on dobutamine to help with diuresis and renal function. Patient denies chest pain events overnight. 08/17/24 patient is seen and examined reviewed chart discussed case with attending. Patient continues on dobutamine drip anasarca improved scrotal swelling as well. Patient blood pressure in the soft side patient denied chest pain or shortness for breath. REVIEW OF SYSTEMS CONSTITUTIONAL: Denies fevers, chills, or night sweats. No unintentional weight loss reported. NEUROLOGICAL: Denies headache, amaurosis fugax, motor weakness, sensory deficit, vertigo/spinning sensation, gait abnormalities, or tremors. ENT: No hearing loss, otalgia, otorrhea, rhinitis, rhinorrhea, hoarseness, or sore throat. CARDIOVASCULAR: Denies any exertional angina, dyspnea on exertion, orthopnea, paroxysmal nocturnal dyspnea, palpitations, life-threatening arrhythmias, claudication. PULMONARY: Denies any shortness of breath, cough, phlegm/sputum, hemoptysis, pleuritic chest pain. SLEEP: Denies morning headaches, daytime somnolence or napping. Denies difficulty falling asleep, staying asleep, waking from sleep. Denies knowledge of snoring. GASTROINTESTINAL: Denies any type of dysphagia to either liquids or solids. Denies nausea, vomiting, pyrosis, early satiety, abdominal pain, diarrhea, constipation, or changes in stool consistency or caliber. Denies coffee-ground emesis, hematemesis, hematochezia, or melanotic stools. GENITOURINARY: Denies frequency, urgency, nocturia, hematuria or incontinence (Storage/Irritative symptoms.) Low urinary stream, straining to void, urinary intermittency or hesitancy, splitting of the voiding stream, terminal dribbling. ENDOCRINOLOGIC: Denies polyuria, polydipsia, polyphagia or heat/cold intolerances. HEMATOLOGIC: Denies thrombophilia/previous clots, or coagulopathy/bleeding disorders. ONCOLOGIC: Denies personal history of malignancy. DERMATOLOGIC: Denies rashes or pruritus. PSYCHIATRIC: Denies any suicidal or homicidal ideation. Denies hallucinations. PHYSICAL EXAM GENERAL APPEARANCE: The patient is awake, alert, and oriented, in no acute cardiopulmonary distress. NEUROLOGICAL: Cranial nerves II-XII grossly intact. Motor is 5/5 in bilateral upper and lower extremities proximal to distal. No sensory deficits. HEENT: Face is symmetric. Pupils are equal and reactive. Extraocular movements are intact. NECK: Supple. No JVD. No thyromegaly. No submental, submandibular, pre- /postauricular, occipital or supraclavicular lymphadenopathy. CHEST: Normal chest expansion. No Telemetry. LUNGS: Absence of any rales, rhonchi or any wheezing. CARDIOVASCULAR: Regular. S1 and S2 normal. No appreciable rubs, murmurs or gallops. ABDOMEN: Soft, nontender, and nondistended. There is no rebound, voluntary guarding, or rigidity. : Deferred. No Guillermo. EXTREMITIES: Non-edematous and not cyanotic. No clubbing. Good capillary refill. SKIN: No skin breakdown. Vital Signs (last 8hr) Date Time Temp Pulse Resp B/P (MAP) Pulse Ox O2 Delivery O2 Flow Rate FiO2 08/17/24 07:00 97.9 91 20 96/63 97 Room Air 08/17/24 03:34 98.4 89 18 112/74 96 Room Air LABS: Laboratory: Test 08/17/24 05:40 08/17/24 03:12 08/16/24 04:39 08/15/24 13:00 Range/Units Whole Blood Glucose 160 H 70-110 MG/DL White Blood Count 4.7 L 4.8-10.8 K/uL Red Blood Count 3.84 L 4.50-6.20 MIL/uL Hemoglobin 10.1 L 14.0-18.0 g/dL Hematocrit 32.1 L 42-54 % Mean Corpuscular Volume 83.6 79-99 fL Mean Corpuscular Hemoglobin 26.3 L 27.0-33.0 pg Mean Corpuscular Hemoglobin Concent 31.5 L 32.0-36.0 g/dL Red Cell Distribution Width 18.1 H 11.0-15.5 % Platelet Count 172 130-400 K/uL Mean Platelet Volume 10.2 7.5-10.5 fL Immature Granulocyte % (Auto) 0.2 0-1 % Neutrophils (%) (Auto) 59.5 40.0-77.0 % Lymphocytes (%) (Auto) 17.6 L 21.0-51.0 % Monocytes (%) (Auto) 18.3 H 3.0-13.0 % Eosinophils (%) (Auto) 4.0 0.0-8.0 % Basophils (%) (Auto) 0.4 0.0-5.0 % Neutrophils # (Auto) 2.8 1.8-7.7 K/uL Lymphocytes # (Auto) 0.8 L 1.0-4.8 K/uL Monocytes # (Auto) 0.9 0.1-1.0 K/uL Eosinophils # (Auto) 0.19 0.00-0.70 K/uL Basophils # (Auto) 0.02 0.00-0.20 K/uL Absolute Immature Granulocyte (auto 0.01 0-1 K/uL Nucleated Red Blood Cells 0.0 0.0-0.19 % Red Blood Cell Morphology See comments Sodium Level 137 136-145 mmol/L Potassium Level 4.3 3.5-5.1 mmol/L Chloride Level 101 101-111 mmol/L Carbon Dioxide Level 29 21-32 mmol/L Blood Urea Nitrogen 73 H 7-18 mg/dL Creatinine 3.5 H 0.5-1.3 mg/dL Glomerular Filtration Rate Calc 19 >90 mL/min Random Glucose 143 H 70-105 mg/dL Total Calcium 8.5 8.5-10.1 mg/dL Phosphorus Level 4.4 2.5-4.9 mg/dL Total Bilirubin 0.7 # 0.2-1.0 mg/dL Aspartate Amino Transf (AST/SGOT) 59 H 10-37 U/L Alanine Aminotransferase (ALT/SGPT) 43 12-78 U/L Alkaline Phosphatase 366 H 50-136 U/L Total Protein 7.2 6.0-8.3 g/dL Albumin 2.2 L 3.5-5.0 g/dL Magnesium Level 1.90 1.80-2.40 mg/dL Iron Level 46 L 65-175 mcg/dL Total Iron Binding Capacity 304 250-450 mcg/dL Percent Iron Saturation 15.1 L 30-44 % Ferritin 110 30-400 ng/mL Thyroid Stimulating Hormone (TSH) 25.36 H 0.36-3.74 uIU/mL Urine Osmolality 341 50-1200 mOsm/kg Urine Random Creatinine 20.70 L 30-135 mg/dL Urine Random Total Protein 21.4 #H 0-11.9 mg/dL Test 08/15/24 12:18 Range/Units Troponin I High Sensitivity 991 *H 4-75 ng/L Current Medications Medications (Trade) Dose Ordered Sig/Anjelica Route PRN Reason Start Time Stop Time Status Last Admin Dose Admin Acetaminophen (TYLenol 325MG TAB) 650 mg Q6H PRN PO TEMPERATURE GREATER THAN 101.5 08/14/24 19:30 09/13/24 19:29 Aspirin (Aspirin 81mg Chew Tab) 324 mg ONCE STAT PO 08/14/24 18:36 08/14/24 18:37 DC 08/14/24 18:52 324 MG Aspirin (Aspirin 81mg Ec Tab) 81 mg DAILY PO 08/15/24 09:00 09/14/24 08:59 08/17/24 09:41 81 MG Atorvastatin Calcium (LIPItor 20MG) 20 mg DAILY PO 08/16/24 09:00 08/16/24 10:43 DC 08/16/24 08:36 20 MG Atorvastatin Calcium (LIPItor 20MG) 20 mg HS PO 08/17/24 21:00 09/15/24 08:59 Bumetanide (Bumex 1mg Tab) 1 mg BID PO 08/15/24 21:00 09/14/24 20:59 08/17/24 09:41 1 MG Dobutamine HCl/ Dextrose 250 ml @ 0 mls/hr PROTOCOL IV 08/16/24 11:00 09/15/24 10:59 08/17/24 01:12 29 MLS/HR Docusate Sodium (COLace 100MG CAP) 100 mg BID PO 08/15/24 10:00 09/14/24 09:59 08/17/24 09:41 100 MG Furosemide (LASix 40MG VIAL) 40 mg ONCE STAT IV 08/14/24 18:37 08/14/24 18:38 DC 08/14/24 18:52 40 MG Hydralazine HCl (APRESOLine 20MG INJ) 10 mg Q6H PRN IV For:SBP above 160;DBP above 90 08/14/24 19:30 09/13/24 19:29 Hydromorphone HCl (DiLAUDid 0.5MG INJ) 0.5 mg Q6H PRN IVP SEVERE PAIN (7-10) 08/15/24 10:00 08/20/24 09:59 08/17/24 09:41 0.5 MG Hydroxyzine HCl (ATArax 25MG TAB) 50 mg BID PO 08/15/24 21:00 09/14/24 20:59 08/17/24 09:41 50 MG Insulin Human Regular (humuLIN R 100 UNIT/ML 3ML) INSULIN SLIDING SCAL... ACHS SQ 08/14/24 21:00 09/13/24 20:59 08/16/24 21:32 2 UNIT Iron Sucrose (VenoFER) 200 mg DAILY22 IV 08/16/24 22:00 09/15/24 21:59 Iron Sucrose 200 mg/Sodium Chloride 250 ml @ 1,000 mls/hr DAILY22 IVP 08/16/24 22:00 08/17/24 06:31 DC 08/16/24 22:19 1,000 MLS/HR Latanoprost (Xalatan) 1 GGT OP HS ANJELICA HS OP 08/15/24 21:00 09/14/24 20:59 Levothyroxine Sodium (SYNTHroid 50MCG TAB) 50 mcg DAILY PO 08/16/24 09:00 09/15/24 08:59 08/17/24 09:41 50 MCG Losartan Potassium (CozAAR 25MG TAB) 25 mg DAILY PO 08/16/24 09:00 08/16/24 19:54 DC 08/16/24 08:35 25 MG Metoprolol Succinate (TopROL XL) 50 mg DAILY PO 08/16/24 09:00 08/16/24 19:54 DC 08/16/24 08:36 50 MG Morphine Sulfate (morPHINE 2MG SYG) 2 mg Q4H PRN IV SEVERE PAIN (7-10) 08/16/24 11:00 08/21/24 19:29 Morphine Sulfate (morPHINE 4MG SYG) 2 mg Q4H PRN IV SEVERE PAIN (7-10) 08/14/24 19:30 08/16/24 10:42 DC 08/15/24 14:04 2 MG Nitroglycerin (Nitrostat) 0.4 mg AD PRN SL CHEST PAIN 08/14/24 19:30 09/13/24 19:29 Ondansetron HCl (zoFRAN 4MG INJ) 4 mg Q6H PRN IV NAUSEA/VOMITING 08/14/24 19:30 09/13/24 19:29 Pharmacy Profile Note (Lace Assessment) 1 each AD MISC 08/15/24 15:00 08/22/24 14:59 Tamsulosin HCl (FloMAX) 0.4 mg DAILY PO 08/15/24 10:00 09/14/24 09:59 08/17/24 09:41 0.4 MG Vitamin B Complex/ Vit C/Folic Acid (Nephrovite Tablet) 1 cap DAILY PO 08/16/24 09:00 09/15/24 08:59 08/17/24 09:41 1 CAP DIAGNOSTICS / RADIOLOGY: [ ] ASSESSMENT: JOAQUÍN on Chronic renal failure POA Cardiac renal syndrome Anasarca wheeping to lower extPOA Scrotum swelling with bilateral moderate hydrocele. POA Elevated troponin, most likely [place] Type II triggered by fluid overload EF < 20% POA Uncontrolled Diabetes mellitius type2, POA acute on chronic CHF with LVEF 20% stage III diastolic dysfunction, POA Right lower extremity wound weeping POA Hypertension History of stroke] Recent bilateral vitreous hemorrhage POA Diabetic retinopathy and neuropathy POA Noncompliance with medication Bumex POA Noncompressible thrombus is seen in the right popliteal vein consistent with deep venous thrombosis. not a candidate for anticoagulation therapy POA s/p post IVC filter placement secondary to DVT and contraindication to anticoagulation. PLAN: [ ] admit to PCCU with Tele consultants: DR Regan Home medication resume: Bumex 1 mg IV now then PO BID will continue with Diuresis for cardiomyopathy. continue with diuresis with Dobutamine: bilateral edema lower ext improving and scrotal swelling improving. cont with local wound care to venous open wounds as directed by wound care nurse fluid restriction : 1.5 liter daily strict I/O daily weight Scrotum swelling with bilateral moderate hydrocele. improving DVT/GI:ppx patient has IVC filter not a candidate of blood thinner. cont with PUD ppx all questions answered further orders as per response to IV diuretics case discussed to attending Dr Ariel Cavazos Cd This document was generated in part using voice recognition software, occasional wrong word or sound alike substitutions may have occurred due to the inherent limitations of voice recognition software. Read the chart carefully and recognize using context, where the substitutions have occurred. Although every effort was made to edit the content, ux ui designer and typing errors may occur ATTESTATION BY PHYSICIAN I have seen and examined the patient. I reviewed the documentation, medical decision making, and treatment plan as noted by the resident provider above. I agree with the findings and plan of care. Eduar Cavazos MD, ELIZABETH NP Aug 17, 2024 10:43
--- NOTE | 2024-08-17 13:53 | NUR ---
DISCHARGE D/C INSTRUCTION GIVEN TO AND PT BOTH VERBALIZED UNDERSTANDING IV AND TELE PACK REMOVED. PT AWARE WAITING ON EMS. CALL LIGHT AND BELONGING WITHIN REACH. Addendum: 08/17/24 at 1411 by WENDI CALI RN RN DONE ON WRONG PT
--- NOTE | 2024-08-17 15:15 | PN ---
NEPHROLOGY PROGRESS NOTE Date/Time Patient Seen: Aug 17, 2024 SUBJECTIVE: This is a 64 year old male with a past medical history of Diabetes mellitus type2, hypertension, CKD, history of CVA, and CHF He presented to the emergency department with a chief complaint of bilateral lower extremities and testicles. She was admitted with a diagnosis of JOAQUÍN on CKD. We have been consulted for renal failure Renal function remains elevated Electrolytes are stable. Hemoglobin is stable He has received IV iron. He was transferred to telemetry floor has been started on dobutamine. He continues on Bumex1 mg p.o. b.i.d.. He was seen in the telemetry floor, in no acute distress No family at the bedside Progress remains guarded REVIEW OF SYSTEMS: GENERAL:Positive for lower extremity edema NEUROLOGIC: Negative for any blurry vision, blind spots, double vision, facial asymmetry, dysphagia, dysarthria, hemiparesis, hemisensory deficits, vertigo, ataxia. HEENT: Negative for any head trauma, neck trauma, neck stiffness, photophobia, phonophobia, sinusitis, rhinitis. CARDIAC: Negative for any chest pain, dyspnea on exertion, paroxysmal nocturnal dyspnea, peripheral edema. PULMONARY: Negative for any shortness of breath, wheezing, COPD, or TB exposure. GASTROINTESTINAL: Negative for any abdominal pain, nausea, vomiting, bright red blood per rectum, melena. GENITOURINARY: Negative for any dysuria, hematuria, incontinence. INTEGUMENTARY: Negative for any rashes, cuts, insect bites. RHEUMATOLOGIC: Negative for any joint pains, photosensitive rashes, history of vasculitis or kidney problems. HEMATOLOGIC: Negative for any abnormal bruising, frequent infections or bleeding. PHYSICAL EXAM: GENERAL: Alert and oriented x 3. No acute distress. Well-nourished. EYES: EOMI. Anicteric. HENT: Moist mucous membranes. No scleral icterus. No cervical lymphadenopathy. LUNGS: Clear to auscultation bilaterally. No accessory muscle use. CARDIOVASCULAR: Regular rate and rhythm. No murmur. No JVD. ABDOMEN: Soft, non-tender and non-distended. No palpable masses. EXTREMITIES: 2+ edema. Non-tender. SKIN: No rashes or lesions. Warm. NEUROLOGIC: No focal neurological deficits. CN II-XII grossly intact, but not individually tested. PSYCHIATRIC: Cooperative. Appropriate mood and affect. LABORATORY: [ ] Hematology Labs: Test 08/17/24 03:12 Range/Units White Blood Count 4.7 L 4.8-10.8 K/uL Red Blood Count 3.84 L 4.50-6.20 MIL/uL Hemoglobin 10.1 L 14.0-18.0 g/dL Hematocrit 32.1 L 42-54 % Mean Corpuscular Volume 83.6 79-99 fL Mean Corpuscular Hemoglobin 26.3 L 27.0-33.0 pg Mean Corpuscular Hemoglobin Concent 31.5 L 32.0-36.0 g/dL Red Cell Distribution Width 18.1 H 11.0-15.5 % Platelet Count 172 130-400 K/uL Mean Platelet Volume 10.2 7.5-10.5 fL Immature Granulocyte % (Auto) 0.2 0-1 % Neutrophils (%) (Auto) 59.5 40.0-77.0 % Lymphocytes (%) (Auto) 17.6 L 21.0-51.0 % Monocytes (%) (Auto) 18.3 H 3.0-13.0 % Eosinophils (%) (Auto) 4.0 0.0-8.0 % Basophils (%) (Auto) 0.4 0.0-5.0 % Neutrophils # (Auto) 2.8 1.8-7.7 K/uL Lymphocytes # (Auto) 0.8 L 1.0-4.8 K/uL Monocytes # (Auto) 0.9 0.1-1.0 K/uL Eosinophils # (Auto) 0.19 0.00-0.70 K/uL Basophils # (Auto) 0.02 0.00-0.20 K/uL Absolute Immature Granulocyte (auto 0.01 0-1 K/uL Nucleated Red Blood Cells 0.0 0.0-0.19 % Red Blood Cell Morphology See comments Chemistry Labs: Test 08/17/24 10:46 08/17/24 03:12 08/16/24 04:39 Range/Units Whole Blood Glucose 182 H 70-110 MG/DL Bedside Glucose Comment Notified Nurse Sodium Level 137 136-145 mmol/L Potassium Level 4.3 3.5-5.1 mmol/L Chloride Level 101 101-111 mmol/L Carbon Dioxide Level 29 21-32 mmol/L Blood Urea Nitrogen 73 H 7-18 mg/dL Creatinine 3.5 H 0.5-1.3 mg/dL Glomerular Filtration Rate Calc 19 >90 mL/min Random Glucose 143 H 70-105 mg/dL Total Calcium 8.5 8.5-10.1 mg/dL Phosphorus Level 4.4 2.5-4.9 mg/dL Total Bilirubin 0.7 # 0.2-1.0 mg/dL Aspartate Amino Transf (AST/SGOT) 59 H 10-37 U/L Alanine Aminotransferase (ALT/SGPT) 43 12-78 U/L Alkaline Phosphatase 366 H 50-136 U/L Total Protein 7.2 6.0-8.3 g/dL Albumin 2.2 L 3.5-5.0 g/dL Magnesium Level 1.90 1.80-2.40 mg/dL Iron Level 46 L 65-175 mcg/dL Total Iron Binding Capacity 304 250-450 mcg/dL Percent Iron Saturation 15.1 L 30-44 % Ferritin 110 30-400 ng/mL Thyroid Stimulating Hormone (TSH) 25.36 H 0.36-3.74 uIU/mL DIAGNOSTICS / RADIOLOGY: REASON: swelling/pain, bilateral ORDERING PHYSICIAN: MICHELLE GARVEY COOK MANAGER PROCEDURE: SCROTUM - US SCROTUM & CONTENTS US SCROTUM & CONTENTS HISTORY: Swelling COMPARISON: None TECHNIQUE: Duplex scrotal ultrasound study was performed. FINDINGS: The right testes measures 2.9 x 2.2 x 2.7 cm. The left testes measures 3 x 2.2 x 2.2 cm. No evidence of intratesticular mass or abnormal calcification is seen. Decreased flow is demonstrated in the testes and epididymides bilaterally. There are bilateral moderate hydrocele. There is right epididymal head cyst measuring 2.4 x 2.9 cm. Severe scrotal edema is seen. Scrotal wall thickening is seen with sclerotic edema with right measuring 13 mm in thickness and left measuring 20 mm in thickness IMPRESSION: 1. No evidence of intratesticular mass is seen. 2. Decreased flow is demonstrated of both testes and epididymides. There are bilateral moderate hydrocele. Scrotal edema is seen. DICTATED BY: MIKAYLA CORRIGAN REASON: SOB ORDERING PHYSICIAN: MICHELLE GARVEY COOK MANAGER PROCEDURE: CXR1VW - CHEST 1VW CHEST 1VW HISTORY: Shortness of breath COMPARISON: 07/26/2024 FINDINGS: A frontal projection of the chest was obtained. Mild bilateral pulmonary infiltrates are seen may be related to mild pulmonary vascular congestion with possible superimposed pneumonitis. The heart is borderline enlarged. Degenerative changes are seen. No evidence of aortic calcification is seen. IMPRESSION: 1. Mild bilateral pulmonary infiltrates are seen may be related to mild pulmonary vascular congestion with possible superimposed pneumonitis. DICTATED BY: BETH CORRIGAN MD DATE: 08/14/24 1832 ASSESSMENT: Acute on Chronic renal failure Cardiorenal syndrome Anasarca Elevated troponin Uncontrolled Diabetes mellitus type2 Acute on chronic CHF with LVEF 20% stage III diastolic dysfunction Hypertension History of CVA Diabetic retinopathy and neuropathy S/p post IVC filter placement secondary to DVT and contraindication to anticoagulation. PLAN: Labs, diagnostic, radiologic exams reviewed and interpreted by myself and supervising physician. We have reviewed external records in detail Start [id number] g IV q.8 hours x3 doses Continue with the Venofer x3 doses for anemia Continue with diuretics Require close monitoring of renal function and electrolytes Order CBC, CMP, and electrolytes in am Continue with antibiotics Renal diabetic diet BiPAP as necessary, for respiratory distress Monitor blood pressure adjust medication doses as needed Avoid hypotensive episodes May use Dilaudid 0.5 mg IV every 6 hours as needed for severe pain Monitor blood sugars Strict intake, output, and daily weight should be monitored Please renally adjust medications Avoid nephrotoxic and nonsteroidal drugs Avoid contrast if possible Will continue to monitor renal function, anemia, electrolytes Treatment plan discussed with patient Questions were answered We have discussed with the other team physicians in detail about the care plan We will continue to monitor the patient closely ATTESTATION BY PHYSICIAN I have seen and examined the patient. I reviewed the documentation, medical decision making, and treatment plan as noted by the mid-level provider above. I agree with the findings and plan of care. DENZEL ACKERMAN MD, [facility] Aug 17, 2024 15:15
--- NOTE | 2024-08-17 19:24 | PN ---
Reason for consult: CHF HPI/story at presentation: This is a pleasant gentleman with past medical history as per present with complaints of shortness of breath, lower extremity meniscal edema. He has known history of multivessel coronary disease, currently managed medically because patient refused bypass surgery because he does not want to be on anticoagulation in the perioperative. Patient also had elevated troponins during hospitalization (anticoagulation for this as well because of issues with retina and is worried about losing more vision. No active issues with chest pain at this time. On diuresis and failed outpatient diuretic therapy. Subjective: 08/15/2024 no complaints 08/16/2024 no complaints 08/17/2024 feeling better Past medical history: See below Allergies, Meds See chart Review of systems Review of Systems Constitutional: Negative for chills and fever. HENT: Negative for ear discharge and ear pain. Eyes: Negative for photophobia and discharge. Respiratory: Negative for cough, sputum production and stridor. Cardiovascular: Negative for chest pain and palpitations. Gastrointestinal: Negative for diarrhea and vomiting. Genitourinary: Negative for frequency. Musculoskeletal: Negative for myalgias. Skin: Negative for rash. Neurological: Negative for focal weakness and seizures. Endo/Heme/Allergies: Negative for polydipsia. Psychiatric/Behavioral: Negative for hallucinations. Vitals see chart PHYSICAL EXAMINATION GENERAL: The patient is alert and oriented*3 HEENT: Nonicteric sclerae, non traumatic HEART: Regular rate and rhythm with no murmurs LUNGS: Clear to auscultation bilaterally ABDOMEN: No acute issues, non tender GENITAL, RECTAL: deferred SKIN: No rash NEUROLOGIC: NFND EXTREMITIES:EDEMA 07/2024 ASSESSMENT EXACERBATION OF CHF, CARDIOMYOPATHY Noncompliant with diuretics at home History of ischemic cardiomyopathy MVCAD on cath 07/2024 Stress test with infarction pattern, 02/2024 Ejection fraction of 15 to 20%, 06/2024 On diuresis with Bumex, 06/2024 DVT diagnosed 07/2024 s/p IVC filter NSTEMI Initial troponin of 1600, trending down HEMATURIA Moderate hematuria, 06/2024 CHRONIC KIDNEY DISEASE Stage III 3.4at presentation Creatinine at discharge from hospital, 06/2024 was 2.2 HYPERTENSION HYPERLIPIDEMIA DIABETES, TOBACCO USE CORE MEASURES Not on guideline directed medical therapy for cardiomyopathy given renal dysfunction OTHER MEDICAL PROBLEMS Anxiety disorder Diabetic neuropathy PLAN 08/15/2024 Currently, has significant issues with swelling in the scrotum, lower extremity edema. Still not interested in anticoagulation at this time, not interested in bypass at this time. Troponins are elevated and progressive muscle loss with significant troponinemia discussed and patient understands risk but still does not want to proceed with surgery at this time. Renal function was elevated at presentation at 3.3. Testicular ultrasound with no mass but did show evidence of bilateral hydroceles. Start dobutamine to help with diuresis and renal function 08/16/2024 Was started on dobutamine this morning, continue watch renal function, output. Had a spell of hypotension today and therefore, had to be moved to the PCU for further evaluation management. Family is discussing bypass and long-term care with rest of family - but no immediate plans. Ultrasound with evidence of hydrocele. Currently on dobutamine at 5 metoprolol 50 losartan 25 Bumex 1 twice daily will hold beta-demario and losartan given hypotension and dobutamine use. 08/17/2024 Overall doing well, edema in his lower extremities test with squamous getting better. Remains on diuresis with Bumex b.i.d., remains on dobutamine drip at 5. We will continue. Renal function is worse today at 3.5 but given ongoing issues with edema would continue aggressive diuresis. Hemodynamically, doing well. Continue to watch renal function, nephrology is on board, appreciate. Long-term prognosis without the bypass is poor. ATTESTATION I was involved substantially in the care of this patient Number and complexity of problems addressed 1 illness with severe exacerbation Amount and or complexity of data Review of prior external note(s) from each unique source - Number 2+_ Ordering of each unique test - Number 0 Review of the result(s) of each unique test - Number 2+ Assessment requiring an independent historian(s) No Independent interpretation of test performed by another MD/QHCP/appropriate source (not separately reported) No Discussion of management or test interpretation with external MD/QHCP/appropriate source (not separately reported) No Risk status (cardiac, billing related) high Vitals/Labs Vital Signs Date Time Temp Pulse Resp B/P (MAP) Pulse Ox O2 Delivery O2 Flow Rate FiO2 08/17/24 19:20 97.7 115 18 117/72 97 Room Air 08/17/24 07:44 0 21 Laboratory Tests 08/17/24 03:12 Medications Current Medications Aspirin 324 mg ONCE STAT PO Last administered on 08/14/24at 18:52; Start 08/14/24 at 18:36; Stop 08/14/24 at 18:37; Status DC Furosemide 40 mg ONCE STAT IV Last administered on 08/14/24at 18:52; Start 08/14/24 at 18:37; Stop 08/14/24 at 18:38; Status DC Nitroglycerin 0.4 mg AD PRN SL; Start 08/14/24 at 19:30; Stop 09/13/24 at 19:29 Acetaminophen 650 mg Q6H PRN PO; Start 08/14/24 at 19:30; Stop 09/13/24 at 19:29 Ondansetron HCl 4 mg Q6H PRN IV; Start 08/14/24 at 19:30; Stop 09/13/24 at 19:29 Morphine Sulfate 2 mg Q4H PRN IV Last administered on 08/15/24at 14:04; Start 08/14/24 at 19:30; Stop 08/16/24 at 10:42; Status DC Hydralazine HCl 10 mg Q6H PRN IV; Start 08/14/24 at 19:30; Stop 09/13/24 at 19:29 Aspirin 81 mg DAILY PO Last administered on 08/17/24at 09:41; Start 08/15/24 at 09:00; Stop 09/14/24 at 08:59 Insulin Human Regular INSULIN SLIDING SCAL... ACHS SQ Last administered on 08/17/24at 12:26; Start 08/14/24 at 21:00; Stop 09/13/24 at 20:59 Hydromorphone HCl 0.25 mg ONCE ONCE IVP Last administered on 08/14/24at 22:53; Start 08/14/24 at 22:30; Stop 08/14/24 at 22:31; Status DC Atorvastatin Calcium 20 mg DAILY PO Last administered on 08/16/24at 08:36; Start 08/16/24 at 09:00; Stop 08/16/24 at 10:43; Status DC Latanoprost 1 GGT OP HS MARA HS OP; Start 08/15/24 at 21:00; Stop 09/14/24 at 20:59 Losartan Potassium 25 mg DAILY PO Last administered on 08/16/24at 08:35; Start 08/16/24 at 09:00; Stop 08/16/24 at 19:54; Status DC Metoprolol Succinate 50 mg DAILY PO Last administered on 08/16/24at 08:36; Start 08/16/24 at 09:00; Stop 08/16/24 at 19:54; Status DC Hydroxyzine HCl 50 mg BID PO Last administered on 08/17/24at 09:41; Start 08/15/24 at 21:00; Stop 09/14/24 at 20:59 Levothyroxine Sodium 50 mcg DAILY PO Last administered on 08/17/24at 09:41; Start 08/16/24 at 09:00; Stop 09/15/24 at 08:59 Bumetanide 1 mg ONCE ONCE IM Last administered on 08/15/24at 10:25; Start 08/15/24 at 10:00; Stop 08/15/24 at 10:01; Status DC Bumetanide 1 mg BID PO Last administered on 08/17/24at 09:41; Start 08/15/24 at 21:00; Stop 09/14/24 at 20:59 Tamsulosin HCl 0.4 mg ONCE ONCE PO; Start 08/15/24 at 10:00; Stop 08/15/24 at 09:52; Status DC Tamsulosin HCl 0.4 mg DAILY PO Last administered on 08/17/24at 09:41; Start 08/15/24 at 10:00; Stop 09/14/24 at 09:59 Docusate Sodium 100 mg BID PO Last administered on 08/17/24at 09:41; Start 08/15/24 at 10:00; Stop 09/14/24 at 09:59 Docusate Sodium 100 mg ONCE ONCE PO; Start 08/15/24 at 10:00; Stop 08/15/24 at 09:54; Status DC Hydromorphone HCl 0.5 mg Q6H PRN IVP Last administered on 08/17/24at 09:41; Start 08/15/24 at 10:00; Stop 08/20/24 at 09:59 Pharmacy Profile Note 1 each [facility] [place]; Start 08/15/24 at 15:00; Stop 08/22/24 at 14:59 Vitamin B Complex/ Vit C/Folic Acid 1 cap DAILY PO Last administered on 08/17/24at 09:41; Start 08/16/24 at 09:00; Stop 09/15/24 at 08:59 Dobutamine HCl/ Dextrose 250 ml @ 0 mls/hr PROTOCOL IV Last administered on 08/17/24at 11:19; Start 08/16/24 at 11:00; Stop 09/15/24 at 10:59 Morphine Sulfate 2 mg Q4H PRN IV; Start 08/16/24 at 11:00; Stop 08/21/24 at 19:29 Atorvastatin Calcium 20 mg HS PO; Start 08/17/24 at 21:00; Stop 09/15/24 at 08:59 Iron Sucrose 200 mg DAILY22 IV; Start 08/16/24 at 22:00; Stop 09/15/24 at 21:59 Iron Sucrose 200 mg/Sodium Chloride 250 ml @ 1,000 mls/hr DAILY22 IVP Last administered on 08/16/24at 22:19; Start 08/16/24 at 22:00; Stop 08/17/24 at 06:31; Status DC Albumin Human 50 ml @ 0 mls/hr Q8H5 IV; Start 08/17/24 at 21:00; Stop 08/20/24 at 20:59 GUSTAVO PRUITT MD Aug 17, 2024 19:24
[2024-08-17] MEDS: atorVAStatin 20 MG TABLET PO SCH (20:22)
[2024-08-17] MEDS: ALBUMIN (HUMAN) 25% 50 ML IV SCH (20:22)
[2024-08-17] MEDS: NACL NASAL SPRAY 120 SPRAY/BOTTLE NS PRN (22:21)
[2024-08-18] VITALS (7 sets, daily range): BP systolic 95–114; BP diastolic 55–75; PULSE 54–121; RESP 16–20; TEMP 97.6–98.5; O2SAT 98
[2024-08-18 04:28] LABS: HEMATOCRIT 31.7 % (42-54); MEAN CORPUSCULAR HEMOGLOBIN 26.9 pg (27.0-33.0); MEAN CORPUSCULAR HGB CONC 32.5 g/dL (32.0-36.0); MEAN CORPUSCULAR VOLUME 82.8 fL (79-99); RED BLOOD CELL COUNT(AUTO) 3.83 MIL/uL (4.50-6.20); RED CELL DISTRIBUTION WIDTH 17.9 % (11.0-15.5); WHITE BLOOD COUNT (AUTO) 6.1 K/uL (4.8-10.8)
[2024-08-18 05:04] LABS: ALBUMIN 2.4 g/dL (3.5-5.0); BILIRUBIN,TOTAL 0.9 mg/dL (0.2-1.0); PHOSPHORUS 3.6 mg/dL (2.5-4.9); POTASSIUM 4.7 mmol/L (3.5-5.1); TOTAL PROTEIN, SERUM 7.3 g/dL (6.0-8.3)
--- NOTE | 2024-08-18 08:16 | PN ---
[facility] PROGRESS NOTE Date of Service: Aug 18, 2024 Time of Service: 08:12 SUBJECTIVE: [ ] This is a 64-year-old male who is well known to [facility] for fluid overload chronic CHF with EF of 20%. Chief complaint of anasarca to lower extremity scrotal edema and pain to scrotal. Patient has a significant social determinants noncompliance with treatment in the past. On last admission patient had to be started on small dose of dobutamine per his primary security and compliance project manager's which has been already consulted we will follow his recommendation patient received a dose of Bumex1 mg IV now. Patient on room air. Denied chest pain. 08/16/24 patient is seen and examined with attending. Reviewed chart and discussed plan of care. Review note security and compliance project manager's in detail had a discussion with patient of troponin elevated and progressive muscle loss patient understands risks but still does not want to proceed with surgery. Patient was started on dobutamine to help with diuresis and renal function. Patient denies chest pain events overnight. 08/17/24 patient is seen and examined reviewed chart discussed case with attending. Patient continues on dobutamine drip anasarca improved scrotal swelling as well. Patient blood pressure in the soft side patient denied chest pain or shortness for breath. 08/18/24 patient seen and examied with Attending : reviewed chart discussed case. Overall doing well, edema in his lower extremities improve significantly Remains on diuresis with Bumex b.i.d PO and remains on dobutamine drip at [address] Siv. creatinine today is 3.0 from 3.5. Property Coordinator is following. Primary nurse report no chest pain event overnight. REVIEW OF SYSTEMS CONSTITUTIONAL: Denies fevers, chills, or night sweats. No unintentional weight loss reported. NEUROLOGICAL: Denies headache, amaurosis fugax, motor weakness, sensory deficit, vertigo/spinning sensation, gait abnormalities, or tremors. ENT: No hearing loss, otalgia, otorrhea, rhinitis, rhinorrhea, hoarseness, or sore throat. CARDIOVASCULAR: Denies any exertional angina, dyspnea on exertion, orthopnea, paroxysmal nocturnal dyspnea, palpitations, life-threatening arrhythmias, claudication. PULMONARY: Denies any shortness of breath, cough, phlegm/sputum, hemoptysis, pleuritic chest pain. SLEEP: Denies morning headaches, daytime somnolence or napping. Denies difficulty falling asleep, staying asleep, waking from sleep. Denies knowledge of snoring. GASTROINTESTINAL: Denies any type of dysphagia to either liquids or solids. Denies nausea, vomiting, pyrosis, early satiety, abdominal pain, diarrhea, constipation, or changes in stool consistency or caliber. Denies coffee-ground emesis, hematemesis, hematochezia, or melanotic stools. GENITOURINARY: Denies frequency, urgency, nocturia, hematuria or incontinence (Storage/Irritative symptoms.) Low urinary stream, straining to void, urinary intermittency or hesitancy, splitting of the voiding stream, terminal dribbling. ENDOCRINOLOGIC: Denies polyuria, polydipsia, polyphagia or heat/cold intolerances. HEMATOLOGIC: Denies thrombophilia/previous clots, or coagulopathy/bleeding disorders. ONCOLOGIC: Denies personal history of malignancy. DERMATOLOGIC: Denies rashes or pruritus. PSYCHIATRIC: Denies any suicidal or homicidal ideation. Denies hallucinations. PHYSICAL EXAM GENERAL APPEARANCE: The patient is awake, alert, and oriented, in no acute cardiopulmonary distress. NEUROLOGICAL: Cranial nerves II-XII grossly intact. Motor is 5/5 in bilateral upper and lower extremities proximal to distal. No sensory deficits. HEENT: Face is symmetric. Pupils are equal and reactive. Extraocular movements are intact. NECK: Supple. No JVD. No thyromegaly. No submental, submandibular, pre- /postauricular, occipital or supraclavicular lymphadenopathy. CHEST: Normal chest expansion. No Telemetry. LUNGS: Absence of any rales, rhonchi or any wheezing. CARDIOVASCULAR: Regular. S1 and S2 normal. No appreciable rubs, murmurs or gallops. ABDOMEN: Soft, nontender, and nondistended. There is no rebound, voluntary guarding, or rigidity. : Deferred. No Guillermo. EXTREMITIES: Non-edematous and not cyanotic. No clubbing. Good capillary refill. SKIN: No skin breakdown. Vital Signs (last 8hr) Date Time Temp Pulse Resp B/P (MAP) Pulse Ox O2 Delivery O2 Flow Rate FiO2 08/18/24 03:45 98.4 54 18 101/64 92 Room Air 08/18/24 03:32 101/64 08/18/24 02:32 95/55 08/18/24 00:13 98.4 117 18 95/55 97 Room Air LABS: Laboratory: Test 08/18/24 05:34 08/18/24 03:47 08/17/24 10:46 08/17/24 03:12 Range/Units Whole Blood Glucose 108 70-110 MG/DL White Blood Count 6.1 4.8-10.8 K/uL Red Blood Count 3.83 L 4.50-6.20 MIL/uL Hemoglobin 10.3 L 14.0-18.0 g/dL Hematocrit 31.7 L 42-54 % Mean Corpuscular Volume 82.8 79-99 fL Mean Corpuscular Hemoglobin 26.9 L 27.0-33.0 pg Mean Corpuscular Hemoglobin Concent 32.5 32.0-36.0 g/dL Red Cell Distribution Width 17.9 H 11.0-15.5 % Platelet Count 159 130-400 K/uL Mean Platelet Volume 10.9 H 7.5-10.5 fL Nucleated Red Blood Cells 0.0 0.0-0.19 % Sodium Level 139 136-145 mmol/L Potassium Level 4.7 3.5-5.1 mmol/L Chloride Level 101 101-111 mmol/L Carbon Dioxide Level 29 21-32 mmol/L Blood Urea Nitrogen 60 H 7-18 mg/dL Creatinine 3.0 H 0.5-1.3 mg/dL Glomerular Filtration Rate Calc 23 >90 mL/min Random Glucose 88 70-105 mg/dL Total Calcium 8.6 8.5-10.1 mg/dL Phosphorus Level 3.6 2.5-4.9 mg/dL Total Bilirubin 0.9 0.2-1.0 mg/dL Aspartate Amino Transf (AST/SGOT) 60 H 10-37 U/L Alanine Aminotransferase (ALT/SGPT) 40 12-78 U/L Alkaline Phosphatase 335 H 50-136 U/L Total Protein 7.3 6.0-8.3 g/dL Albumin 2.4 L 3.5-5.0 g/dL Bedside Glucose Comment Notified Nurse Immature Granulocyte % (Auto) 0.2 0-1 % Neutrophils (%) (Auto) 59.5 40.0-77.0 % Lymphocytes (%) (Auto) 17.6 L 21.0-51.0 % Monocytes (%) (Auto) 18.3 H 3.0-13.0 % Eosinophils (%) (Auto) 4.0 0.0-8.0 % Basophils (%) (Auto) 0.4 0.0-5.0 % Neutrophils # (Auto) 2.8 1.8-7.7 K/uL Lymphocytes # (Auto) 0.8 L 1.0-4.8 K/uL Monocytes # (Auto) 0.9 0.1-1.0 K/uL Eosinophils # (Auto) 0.19 0.00-0.70 K/uL Basophils # (Auto) 0.02 0.00-0.20 K/uL Absolute Immature Granulocyte (auto 0.01 0-1 K/uL Red Blood Cell Morphology See comments Current Medications Medications (Trade) Dose Ordered Sig/Anjelica Route PRN Reason Start Time Stop Time Status Last Admin Dose Admin Acetaminophen (TYLenol 325MG TAB) 650 mg Q6H PRN PO TEMPERATURE GREATER THAN 101.5 08/14/24 19:30 09/13/24 19:29 Albumin Human 50 ml @ 0 mls/hr Q8H5 IV 08/17/24 21:00 08/20/24 20:59 08/18/24 04:10 50 MLS/HR Aspirin (Aspirin 81mg Chew Tab) 324 mg ONCE STAT PO 08/14/24 18:36 08/14/24 18:37 DC 08/14/24 18:52 324 MG Aspirin (Aspirin 81mg Ec Tab) 81 mg DAILY PO 08/15/24 09:00 09/14/24 08:59 08/18/24 07:44 81 MG Atorvastatin Calcium (LIPItor 20MG) 20 mg DAILY PO 08/16/24 09:00 08/16/24 10:43 DC 08/16/24 08:36 20 MG Atorvastatin Calcium (LIPItor 20MG) 20 mg HS PO 08/17/24 21:00 09/15/24 08:59 08/17/24 20:22 20 MG Bumetanide (Bumex 1mg Tab) 1 mg BID PO 08/15/24 21:00 09/14/24 20:59 08/18/24 07:44 1 MG Dobutamine HCl/ Dextrose 250 ml @ 0 mls/hr PROTOCOL IV 08/16/24 11:00 09/15/24 10:59 08/18/24 02:32 29.1 MLS/HR Docusate Sodium (COLace 100MG CAP) 100 mg BID PO 08/15/24 10:00 09/14/24 09:59 08/18/24 07:44 100 MG Furosemide (LASix 40MG VIAL) 40 mg ONCE STAT IV 08/14/24 18:37 08/14/24 18:38 DC 08/14/24 18:52 40 MG Hydralazine HCl (APRESOLine 20MG INJ) 10 mg Q6H PRN IV For:SBP above 160;DBP above 90 08/14/24 19:30 09/13/24 19:29 Hydromorphone HCl (DiLAUDid 0.5MG INJ) 0.5 mg Q6H PRN IVP SEVERE PAIN (7-10) 08/15/24 10:00 08/20/24 09:59 08/18/24 07:45 0.5 MG Hydroxyzine HCl (ATArax 25MG TAB) 50 mg BID PO 08/15/24 21:00 09/14/24 20:59 08/18/24 07:44 50 MG Insulin Human Regular (humuLIN R 100 UNIT/ML 3ML) INSULIN SLIDING SCAL... ACHS SQ 08/14/24 21:00 09/13/24 20:59 08/17/24 20:32 2 UNIT Iron Sucrose (VenoFER) 200 mg DAILY22 IV 08/16/24 22:00 09/15/24 21:59 08/17/24 21:57 200 MG Iron Sucrose 200 mg/Sodium Chloride 250 ml @ 1,000 mls/hr DAILY22 IVP 08/16/24 22:00 08/17/24 06:31 DC 08/16/24 22:19 1,000 MLS/HR Latanoprost (Xalatan) 1 GGT OP HS ANJELICA HS OP 08/15/24 21:00 09/14/24 20:59 Levothyroxine Sodium (SYNTHroid 50MCG TAB) 50 mcg DAILY PO 08/16/24 09:00 09/15/24 08:59 08/18/24 07:44 50 MCG Losartan Potassium (CozAAR 25MG TAB) 25 mg DAILY PO 08/16/24 09:00 08/16/24 19:54 DC 08/16/24 08:35 25 MG Metoprolol Succinate (TopROL XL) 50 mg DAILY PO 08/16/24 09:00 08/16/24 19:54 DC 08/16/24 08:36 50 MG Morphine Sulfate (morPHINE 2MG SYG) 2 mg Q4H PRN IV SEVERE PAIN (7-10) 08/16/24 11:00 08/21/24 19:29 Morphine Sulfate (morPHINE 4MG SYG) 2 mg Q4H PRN IV SEVERE PAIN (7-10) 08/14/24 19:30 08/16/24 10:42 DC 08/15/24 14:04 2 MG Nitroglycerin (Nitrostat) 0.4 mg AD PRN SL CHEST PAIN 08/14/24 19:30 09/13/24 19:29 Ondansetron HCl (zoFRAN 4MG INJ) 4 mg Q6H PRN IV NAUSEA/VOMITING 08/14/24 19:30 09/13/24 19:29 Pharmacy Profile Note (Lace Assessment) 1 each AD MISC 08/15/24 15:00 08/22/24 14:59 Sodium Chloride ([place] Nasal [place]) 1 spray Q6H PRN NS DRYNESS 08/17/24 22:00 09/16/24 21:59 08/18/24 04:11 1 SPRAY Tamsulosin HCl (FloMAX) 0.4 mg DAILY PO 08/15/24 10:00 09/14/24 09:59 08/18/24 07:44 0.4 MG Vitamin B Complex/ Vit C/Folic Acid (Nephrovite Tablet) 1 cap DAILY PO 08/16/24 09:00 09/15/24 08:59 08/18/24 07:44 1 CAP DIAGNOSTICS / RADIOLOGY: [ ] ASSESSMENT: JOAQUÍN on Chronic renal failure POA Cardiac renal syndrome Anasarca wheeping to lower extPOA Scrotum swelling with bilateral moderate hydrocele. POA Elevated troponin, most likely [place] Type II triggered by fluid overload EF < 20% POA Uncontrolled Diabetes mellitius type2, POA acute on chronic CHF with LVEF 20% stage III diastolic dysfunction, POA Right lower extremity wound weeping POA Hypertension History of stroke] Recent bilateral vitreous hemorrhage POA Diabetic retinopathy and neuropathy POA Noncompliance with medication Bumex POA Noncompressible thrombus is seen in the right popliteal vein consistent with deep venous thrombosis. not a candidate for anticoagulation therapy POA s/p post IVC filter placement secondary to DVT and contraindication to anticoagulation. PLAN: [ ] admit to PCCU with Tele consultants: DR Regan Home medication resume: Bumex 1 mg IV now then PO BID will continue with Diuresis for cardiomyopathy. continue with diuresis with Dobutamine: bilateral edema lower ext improving and scrotal swelling improving. cont with local wound care to venous open wounds as directed by wound care nurse fluid restriction : 1.5 liter daily strict I/O daily weight Scrotum swelling with bilateral moderate hydrocele. improving instructed patient on Jock strap for support, DVT/GI:ppx patient has IVC filter not a candidate of blood thinner. cont with PUD ppx all questions answered further orders as per response to IV diuretics case discussed to attending Dr Ariel Cavazos Cd This document was generated in part using voice recognition software, occasional wrong word or sound alike substitutions may have occurred due to the inherent limitations of voice recognition software. Read the chart carefully and recognize using context, where the substitutions have occurred. Although every effort was made to edit the content, bellstaff and typing errors may occur ATTESTATION BY PHYSICIAN I have seen and examined the patient. I reviewed the documentation, medical decision making, and treatment plan as noted by the resident provider above. I agree with the findings and plan of care. Eduar Cavazos MD, [facility] NP Aug 18, 2024 08:16
--- NOTE | 2024-08-18 14:07 | PN ---
NEPHROLOGY PROGRESS NOTE Date/Time Patient Seen: Aug 18, 2024 SUBJECTIVE: This is a 64 year old male with a past medical history of Diabetes mellitus type2, hypertension, CKD, history of CVA, and CHF He presented to the emergency department with a chief complaint of bilateral lower extremities and testicles. She was admitted with a diagnosis of JOAQUÍN on CKD. We have been consulted for renal failure Renal function is improving Electrolytes are stable. Hemoglobin is stable He has received IV iron. He was transferred to telemetry floor has been started on dobutamine. He continues on Bumex1 mg p.o. b.i.d.. Tolerating Albumin well He was seen in the telemetry floor, in no acute distress No family at the bedside Progress remains guarded REVIEW OF SYSTEMS: GENERAL:Positive for lower extremity edema NEUROLOGIC: Negative for any blurry vision, blind spots, double vision, facial asymmetry, dysphagia, dysarthria, hemiparesis, hemisensory deficits, vertigo, ataxia. HEENT: Negative for any head trauma, neck trauma, neck stiffness, photophobia, phonophobia, sinusitis, rhinitis. CARDIAC: Negative for any chest pain, dyspnea on exertion, paroxysmal nocturnal dyspnea, peripheral edema. PULMONARY: Negative for any shortness of breath, wheezing, COPD, or TB exposure. GASTROINTESTINAL: Negative for any abdominal pain, nausea, vomiting, bright red blood per rectum, melena. GENITOURINARY: Negative for any dysuria, hematuria, incontinence. INTEGUMENTARY: Negative for any rashes, cuts, insect bites. RHEUMATOLOGIC: Negative for any joint pains, photosensitive rashes, history of vasculitis or kidney problems. HEMATOLOGIC: Negative for any abnormal bruising, frequent infections or bleeding. PHYSICAL EXAM: GENERAL: Alert and oriented x 3. No acute distress. Well-nourished. EYES: EOMI. Anicteric. HENT: Moist mucous membranes. No scleral icterus. No cervical lymphadenopathy. LUNGS: Clear to auscultation bilaterally. No accessory muscle use. CARDIOVASCULAR: Regular rate and rhythm. No murmur. No JVD. ABDOMEN: Soft, non-tender and non-distended. No palpable masses. EXTREMITIES: 2+ edema. Non-tender. SKIN: No rashes or lesions. Warm. NEUROLOGIC: No focal neurological deficits. CN II-XII grossly intact, but not individually tested. PSYCHIATRIC: Cooperative. Appropriate mood and affect. LABORATORY: [ ] Hematology Labs: Test 08/18/24 03:47 08/17/24 03:12 Range/Units White Blood Count 6.1 4.8-10.8 K/uL Red Blood Count 3.83 L 4.50-6.20 MIL/uL Hemoglobin 10.3 L 14.0-18.0 g/dL Hematocrit 31.7 L 42-54 % Mean Corpuscular Volume 82.8 79-99 fL Mean Corpuscular Hemoglobin 26.9 L 27.0-33.0 pg Mean Corpuscular Hemoglobin Concent 32.5 32.0-36.0 g/dL Red Cell Distribution Width 17.9 H 11.0-15.5 % Platelet Count 159 130-400 K/uL Mean Platelet Volume 10.9 H 7.5-10.5 fL Nucleated Red Blood Cells 0.0 0.0-0.19 % Immature Granulocyte % (Auto) 0.2 0-1 % Neutrophils (%) (Auto) 59.5 40.0-77.0 % Lymphocytes (%) (Auto) 17.6 L 21.0-51.0 % Monocytes (%) (Auto) 18.3 H 3.0-13.0 % Eosinophils (%) (Auto) 4.0 0.0-8.0 % Basophils (%) (Auto) 0.4 0.0-5.0 % Neutrophils # (Auto) 2.8 1.8-7.7 K/uL Lymphocytes # (Auto) 0.8 L 1.0-4.8 K/uL Monocytes # (Auto) 0.9 0.1-1.0 K/uL Eosinophils # (Auto) 0.19 0.00-0.70 K/uL Basophils # (Auto) 0.02 0.00-0.20 K/uL Absolute Immature Granulocyte (auto 0.01 0-1 K/uL Red Blood Cell Morphology See comments Chemistry Labs: Test 08/18/24 11:11 08/18/24 03:47 08/17/24 10:46 Range/Units Whole Blood Glucose 168 #H 70-110 MG/DL Sodium Level 139 136-145 mmol/L Potassium Level 4.7 3.5-5.1 mmol/L Chloride Level 101 101-111 mmol/L Carbon Dioxide Level 29 21-32 mmol/L Blood Urea Nitrogen 60 H 7-18 mg/dL Creatinine 3.0 H 0.5-1.3 mg/dL Glomerular Filtration Rate Calc 23 >90 mL/min Random Glucose 88 70-105 mg/dL Total Calcium 8.6 8.5-10.1 mg/dL Phosphorus Level 3.6 2.5-4.9 mg/dL Total Bilirubin 0.9 0.2-1.0 mg/dL Aspartate Amino Transf (AST/SGOT) 60 H 10-37 U/L Alanine Aminotransferase (ALT/SGPT) 40 12-78 U/L Alkaline Phosphatase 335 H 50-136 U/L Total Protein 7.3 6.0-8.3 g/dL Albumin 2.4 L 3.5-5.0 g/dL Bedside Glucose Comment Notified Nurse DIAGNOSTICS / RADIOLOGY: REASON: swelling/pain, bilateral ORDERING PHYSICIAN: MICHELLE GARVEY CLICKING MACHINE OPERATOR PROCEDURE: SCROTUM - US SCROTUM & CONTENTS US SCROTUM & CONTENTS HISTORY: Swelling COMPARISON: None TECHNIQUE: Duplex scrotal ultrasound study was performed. FINDINGS: The right testes measures 2.9 x 2.2 x 2.7 cm. The left testes measures 3 x 2.2 x 2.2 cm. No evidence of intratesticular mass or abnormal calcification is seen. Decreased flow is demonstrated in the testes and epididymides bilaterally. There are bilateral moderate hydrocele. There is right epididymal head cyst measuring 2.4 x 2.9 cm. Severe scrotal edema is seen. Scrotal wall thickening is seen with sclerotic edema with right measuring 13 mm in thickness and left measuring 20 mm in thickness IMPRESSION: 1. No evidence of intratesticular mass is seen. 2. Decreased flow is demonstrated of both testes and epididymides. There are bilateral moderate hydrocele. Scrotal edema is seen. DICTATED BY: MIKAYLA CORRIGAN REASON: SOB ORDERING PHYSICIAN: MICHELLE GARVEY NP PROCEDURE: CXR1VW - CHEST 1VW CHEST 1VW HISTORY: Shortness of breath COMPARISON: 07/26/2024 FINDINGS: A frontal projection of the chest was obtained. Mild bilateral pulmonary infiltrates are seen may be related to mild pulmonary vascular congestion with possible superimposed pneumonitis. The heart is borderline enlarged. Degenerative changes are seen. No evidence of aortic calcification is seen. IMPRESSION: 1. Mild bilateral pulmonary infiltrates are seen may be related to mild pulmonary vascular congestion with possible superimposed pneumonitis. DICTATED BY: BETH CORRIGAN MD DATE: 08/14/24 183 ASSESSMENT: Acute on Chronic renal failure Cardiorenal syndrome Anasarca Elevated troponin Uncontrolled Diabetes mellitus type2 Acute on chronic CHF with LVEF 20% stage III diastolic dysfunction Hypertension History of CVA Diabetic retinopathy and neuropathy S/p post IVC filter placement secondary to DVT and contraindication to anticoagulation. PLAN: Labs, diagnostic, radiologic exams reviewed and interpreted by myself and supervising physician. We have reviewed external records in detail Patient to receive one dose of Albumin Continue with the Venofer x3 doses for anemia Continue with diuretics Require close monitoring of renal function and electrolytes Order CBC, CMP, and electrolytes in am Continue with antibiotics Renal diabetic diet BiPAP as necessary, for respiratory distress Monitor blood pressure adjust medication doses as needed Avoid hypotensive episodes May use Dilaudid 0.5 mg IV every 6 hours as needed for severe pain Monitor blood sugars Strict intake, output, and daily weight should be monitored Please renally adjust medications Avoid nephrotoxic and nonsteroidal drugs Avoid contrast if possible Will continue to monitor renal function, anemia, electrolytes Treatment plan discussed with patient Questions were answered We have discussed with the other team physicians in detail about the care plan We will continue to monitor the patient closely ATTESTATION BY PHYSICIAN I have seen and examined the patient. I reviewed the documentation, medical decision making, and treatment plan as noted by the mid-level provider above. I agree with the findings and plan of care. DENZEL ACKERMAN MD, [facility] Aug 18, 2024 14:07
[2024-08-18] MEDS ORDERED: COMPOUND PO REF 1 EA BTL MISC PRN (23:00)
[2024-08-19] VITALS (8 sets, daily range): BP systolic 105–125; BP diastolic 70–78; PULSE 63–120; RESP 16–20; TEMP 97.6–98.8; O2SAT 97–98
[2024-08-19 04:09] LABS: HEMATOCRIT 31.6 % (42-54); MEAN CORPUSCULAR HEMOGLOBIN 26.4 pg (27.0-33.0); MEAN CORPUSCULAR VOLUME 82.7 fL (79-99); RED BLOOD CELL COUNT(AUTO) 3.82 MIL/uL (4.50-6.20); RED CELL DISTRIBUTION WIDTH 18.1 % (11.0-15.5); WHITE BLOOD COUNT (AUTO) 6.4 K/uL (4.8-10.8)
[2024-08-19] MEDS: ondanSETRON 4MG INJ IV PRN (04:11)
[2024-08-19] MEDS: morPHINE 2 MG SYG IV PRN (04:11)
[2024-08-19 04:21] LABS: CREATININE 3.2 mg/dL (0.5-1.3); MAGNESIUM 1.8 mg/dL (1.80-2.40); PHOSPHORUS 3.7 mg/dL (2.5-4.9); POTASSIUM 4.2 mmol/L (3.5-5.1)
[2024-08-19] MEDS: MAGNESIUM 2GM PREMIX 50ML 50 ML IV ONE (09:50)
--- NOTE | 2024-08-19 11:06 | PN ---
[facility] PROGRESS NOTE Date of Service: Aug 19, 2024 Time of Service: 11:02 SUBJECTIVE: [ ] This is a 64-year-old male who is well known to for fluid overload chronic CHF with EF of 20%. Chief complaint of anasarca to lower extremity scrotal edema and pain to scrotal. Patient has a significant social determinants noncompliance with treatment in the past. On last admission patient had to be started on small dose of dobutamine per his primary fish egg packer's which has been already consulted we will follow his recommendation patient received a dose of Bumex1 mg IV now. Patient on room air. Denied chest pain. 08/16/24 patient is seen and examined with attending. Reviewed chart and discussed plan of care. Review note fish egg packer's in detail had a discussion with patient of troponin elevated and progressive muscle loss patient understands risks but still does not want to proceed with surgery. Patient was started on dobutamine to help with diuresis and renal function. Patient denies chest pain events overnight. 08/17/24 patient is seen and examined reviewed chart discussed case with attending. Patient continues on dobutamine drip anasarca improved scrotal swelling as well. Patient blood pressure in the soft side patient denied chest pain or shortness for breath. 08/18/24 patient seen and examied with Attending : reviewed chart discussed case. Overall doing well, edema in his lower extremities improve significantly Remains on diuresis with Bumex b.i.d PO and remains on dobutamine drip at [address] Siv. creatinine today is 3.0 from 3.5. Delivery Driver/Customer Service is following. Primary nurse report no chest pain event overnight. 08/19/24 patient is fully awake alert oriented x3 denies palpation dizziness, chest pain. continue on Dobutamine drip HR tachycardia. bilateral edema to lower ext improving. scrotal swelling improved significantly. The patient requesting medical records. will have social sciences research scientist talked with patient. REVIEW OF SYSTEMS CONSTITUTIONAL: Denies fevers, chills, or night sweats. No unintentional weight loss reported. NEUROLOGICAL: Denies headache, amaurosis fugax, motor weakness, sensory deficit, vertigo/spinning sensation, gait abnormalities, or tremors. ENT: No hearing loss, otalgia, otorrhea, rhinitis, rhinorrhea, hoarseness, or sore throat. CARDIOVASCULAR: Denies any exertional angina, dyspnea on exertion, orthopnea, paroxysmal nocturnal dyspnea, palpitations, life-threatening arrhythmias, claudication. PULMONARY: Denies any shortness of breath, cough, phlegm/sputum, hemoptysis, pleuritic chest pain. SLEEP: Denies morning headaches, daytime somnolence or napping. Denies difficulty falling asleep, staying asleep, waking from sleep. Denies knowledge of snoring. GASTROINTESTINAL: Denies any type of dysphagia to either liquids or solids. Denies nausea, vomiting, pyrosis, early satiety, abdominal pain, diarrhea, constipation, or changes in stool consistency or caliber. Denies coffee-ground emesis, hematemesis, hematochezia, or melanotic stools. GENITOURINARY: Denies frequency, urgency, nocturia, hematuria or incontinence (Storage/Irritative symptoms.) Low urinary stream, straining to void, urinary intermittency or hesitancy, splitting of the voiding stream, terminal dribbling. ENDOCRINOLOGIC: Denies polyuria, polydipsia, polyphagia or heat/cold intolerances. HEMATOLOGIC: Denies thrombophilia/previous clots, or coagulopathy/bleeding disorders. ONCOLOGIC: Denies personal history of malignancy. DERMATOLOGIC: Denies rashes or pruritus. PSYCHIATRIC: Denies any suicidal or homicidal ideation. Denies hallucinations. PHYSICAL EXAM GENERAL APPEARANCE: The patient is awake, alert, and oriented, in no acute cardiopulmonary distress. NEUROLOGICAL: Cranial nerves II-XII grossly intact. Motor is 5/5 in bilateral upper and lower extremities proximal to distal. No sensory deficits. HEENT: Face is symmetric. Pupils are equal and reactive. Extraocular movements are intact. NECK: Supple. No JVD. No thyromegaly. No submental, submandibular, pre-/po stauricular, occipital or supraclavicular lymphadenopathy. CHEST: Normal chest expansion. No Telemetry. LUNGS: Absence of any rales, rhonchi or any wheezing. CARDIOVASCULAR: Regular. S1 and S2 normal. No appreciable rubs, murmurs or gallops. ABDOMEN: Soft, nontender, and nondistended. There is no rebound, voluntary guarding, or rigidity. : Deferred. No Guilelrmo. EXTREMITIES: Non-edematous and not cyanotic. No clubbing. Good capillary refill. SKIN: No skin breakdown. Vital Signs (last 8hr) Date Time Temp Pulse Resp B/P (MAP) Pulse Ox O2 Delivery O2 Flow Rate FiO2 08/19/24 08:35 97 Room Air* 0 21 08/19/24 07:59 98.6 120 16 110/77 96 Room Air 08/19/24 03:20 98.6 112 20 105/71 99 Room Air LABS: Laboratory: Test 08/19/24 05:29 08/19/24 03:18 08/18/24 03:47 Range/Units Whole Blood Glucose 131 H 70-110 MG/DL White Blood Count 6.4 4.8-10.8 K/uL Red Blood Count 3.82 L 4.50-6.20 MIL/uL Hemoglobin 10.1 L 14.0-18.0 g/dL Hematocrit 31.6 L 42-54 % Mean Corpuscular Volume 82.7 79-99 fL Mean Corpuscular Hemoglobin 26.4 L 27.0-33.0 pg Mean Corpuscular Hemoglobin Concent 32.0 32.0-36.0 g/dL Red Cell Distribution Width 18.1 H 11.0-15.5 % Platelet Count 145 130-400 K/uL Mean Platelet Volume 10.4 7.5-10.5 fL Nucleated Red Blood Cells 0.0 0.0-0.19 % Sodium Level 137 136-145 mmol/L Potassium Level 4.2 3.5-5.1 mmol/L Chloride Level 101 101-111 mmol/L Carbon Dioxide Level 29 21-32 mmol/L Blood Urea Nitrogen 59 H 7-18 mg/dL Creatinine 3.2 H 0.5-1.3 mg/dL Glomerular Filtration Rate Calc 21 >90 mL/min Random Glucose 115 H 70-105 mg/dL Total Calcium 8.9 8.5-10.1 mg/dL Phosphorus Level 3.7 2.5-4.9 mg/dL Magnesium Level 1.80 1.80-2.40 mg/dL Total Bilirubin 0.9 0.2-1.0 mg/dL Aspartate Amino Transf (AST/SGOT) 60 H 10-37 U/L Alanine Aminotransferase (ALT/SGPT) 40 12-78 U/L Alkaline Phosphatase 335 H 50-136 U/L Total Protein 7.3 6.0-8.3 g/dL Albumin 2.4 L 3.5-5.0 g/dL Current Medications Medications (Trade) Dose Ordered Sig/Anjelica Route PRN Reason Start Time Stop Time Status Last Admin Dose Admin Acetaminophen (TYLenol 325MG TAB) 650 mg Q6H PRN PO TEMPERATURE GREATER THAN 101.5 08/14/24 19:30 09/13/24 19:29 Albumin Human 50 ml @ 0 mls/hr Q8H5 IV 08/17/24 21:00 08/20/24 20:59 08/19/24 04:11 50 MLS/HR Aspirin (Aspirin 81mg Chew Tab) 324 mg ONCE STAT PO 08/14/24 18:36 08/14/24 18:37 DC 08/14/24 18:52 324 MG Aspirin (Aspirin 81mg Ec Tab) 81 mg DAILY PO 08/15/24 09:00 09/14/24 08:59 08/19/24 08:22 81 MG Atorvastatin Calcium (LIPItor 20MG) 20 mg DAILY PO 08/16/24 09:00 08/16/24 10:43 DC 08/16/24 08:36 20 MG Atorvastatin Calcium (LIPItor 20MG) 20 mg HS PO 08/17/24 21:00 09/15/24 08:59 08/18/24 22:04 20 MG Bumetanide (Bumex 1mg Tab) 1 mg BID PO 08/15/24 21:00 09/14/24 20:59 08/19/24 08:22 1 MG Dobutamine HCl/ Dextrose 250 ml @ 0 mls/hr PROTOCOL IV 08/16/24 11:00 09/15/24 10:59 08/19/24 08:59 29.1 MLS/HR Docusate Sodium (COLace 100MG CAP) 100 mg BID PO 08/15/24 10:00 09/14/24 09:59 08/19/24 08:22 100 MG Furosemide (LASix 40MG VIAL) 40 mg ONCE STAT IV 08/14/24 18:37 08/14/24 18:38 DC 08/14/24 18:52 40 MG Hydralazine HCl (APRESOLine 20MG INJ) 10 mg Q6H PRN IV For:SBP above 160;DBP above 90 08/14/24 19:30 09/13/24 19:29 Hydromorphone HCl (DiLAUDid 0.5MG INJ) 0.5 mg Q6H PRN IVP SEVERE PAIN (7-10) 08/15/24 10:00 08/20/24 09:59 08/18/24 22:13 0.5 MG Hydroxyzine HCl (ATArax 25MG TAB) 50 mg BID PO 08/15/24 21:00 09/14/24 20:59 08/19/24 08:21 50 MG Insulin Human Regular (humuLIN R 100 UNIT/ML 3ML) INSULIN SLIDING SCAL... ACHS SQ 08/14/24 21:00 09/13/24 20:59 08/18/24 16:48 2 UNIT Iron Sucrose (VenoFER) 200 mg DAILY22 IV 08/16/24 22:00 08/19/24 07:38 DC 08/18/24 22:37 200 MG Iron Sucrose 200 mg/Sodium Chloride 250 ml @ 1,000 mls/hr DAILY22 IVP 08/16/24 22:00 08/17/24 06:31 DC 08/16/24 22:19 1,000 MLS/HR Latanoprost (Xalatan) 1 GGT OP HS ANJELICA HS OP 08/15/24 21:00 09/14/24 20:59 08/18/24 22:37 1 DROP Levothyroxine Sodium (SYNTHroid 50MCG TAB) 50 mcg DAILY PO 08/16/24 09:00 09/15/24 08:59 08/19/24 08:22 50 MCG Losartan Potassium (CozAAR 25MG TAB) 25 mg DAILY PO 08/16/24 09:00 08/16/24 19:54 DC 08/16/24 08:35 25 MG Metoprolol Succinate (TopROL XL) 50 mg DAILY PO 08/16/24 09:00 08/16/24 19:54 DC 08/16/24 08:36 50 MG Morphine Sulfate (morPHINE 2MG SYG) 2 mg Q4H PRN IV SEVERE PAIN (7-10) 08/16/24 11:00 08/21/24 19:29 08/19/24 04:11 2 MG Morphine Sulfate (morPHINE 4MG SYG) 2 mg Q4H PRN IV SEVERE PAIN (7-10) 08/14/24 19:30 08/16/24 10:42 DC 08/15/24 14:04 2 MG Nitroglycerin (Nitrostat) 0.4 mg AD PRN SL CHEST PAIN 08/14/24 19:30 09/13/24 19:29 Ondansetron HCl (zoFRAN 4MG INJ) 4 mg Q6H PRN IV NAUSEA/VOMITING 08/14/24 19:30 09/13/24 19:29 08/19/24 04:11 4 MG Pharmacy Profile Note (Lace Assessment) 1 each AD MISC 08/15/24 15:00 08/19/24 07:38 DC Sodium Chloride ([place]) 1 spray Q6H PRN NS DRYNESS 08/17/24 22:00 09/16/24 21:59 08/18/24 04:11 1 SPRAY Tamsulosin HCl (FloMAX) 0.4 mg DAILY PO 08/15/24 10:00 09/14/24 09:59 08/19/24 08:22 0.4 MG Vitamin B Complex/ Vit C/Folic Acid (Nephrovite Tablet) 1 cap DAILY PO 08/16/24 09:00 09/15/24 08:59 08/19/24 08:21 1 CAP DIAGNOSTICS / RADIOLOGY: [ ] ASSESSMENT: JOAQUÍN on Chronic renal failure POA Cardiac renal syndrome Anasarca wheeping to lower extPOA Scrotum swelling with bilateral moderate hydrocele. POA Elevated troponin, most likely [place] Type II triggered by fluid overload EF < 20% POA Uncontrolled Diabetes mellitius type2, POA acute on chronic CHF with LVEF 20% stage III diastolic dysfunction, POA Right lower extremity wound weeping POA Hypertension History of stroke] Recent bilateral vitreous hemorrhage POA Diabetic retinopathy and neuropathy POA Noncompliance with medication Bumex POA Noncompressible thrombus is seen in the right popliteal vein consistent with deep venous thrombosis. not a candidate for anticoagulation therapy POA s/p post IVC filter placement secondary to DVT and contraindication to anticoagulation. left plantar foot Ulcer; not poa PLAN: [ ] admit to PCCU with Tele consultants: DR Regan will followed possible discharged Home medication resume: Bumex 1 mg PO BID will continue with Diuresis for cardiomyopathy. continue with diuresis with Dobutamine: bilateral edema lower ext improving and scrotal swelling improving. cont with local wound care to venous open wounds as directed by wound care nurse fluid restriction : 1.5 liter daily strict I/O daily weight Scrotum swelling with bilateral moderate hydrocele. improving instructed patient on Jock strap for support, DVT/GI:ppx patient has IVC filter not a candidate of blood thinner. cont with PUD ppx all questions answered further orders as per response to IV diuretics case discussed to attending Dr Ariel Cavazos Cd This document was generated in part using voice recognition software, occasional wrong word or sound alike substitutions may have occurred due to the inherent limitations of voice recognition software. Read the chart carefully and recognize using context, where the substitutions have occurred. Although every effort was made to edit the content, tongue trimmer and typing errors may occur ATTESTATION BY PHYSICIAN I have seen and examined the patient. I reviewed the documentation, medical decision making, and treatment plan as noted by the resident provider above. I agree with the findings and plan of care. Eduar Cavazos MD, ELIZABETH NP Aug 19, 2024 11:06
--- NOTE | 2024-08-19 11:43 | NUR ---
Spoke with Dr. Coyle via phone call, informed him of patient with persistent tachycardia with heart rate >120. Dr. Coyle states to continue dobutamine gtt at current rate of 5mcg/kg/min, he will evaluate patient later today. No further orders given.
--- NOTE | 2024-08-19 13:14 | PN ---
FOLLOWUP PROGRESS NOTE SUBJECTIVE: A 64-year-old male with history of diabetes mellitus and hypertension. He has a history of known chronic renal insufficiency. The patient initially admitted with significant edema. The patient was noted to have underlying renal dysfunction. He is placed on oral anticoagulants. The patient also on dobutamine and the patient is being seen by Cardiology. The patient has been seen on the medical floor. REVIEW OF SYSTEMS: GENERAL: He is feeling weak and tired. HEENT: No change in vision. No change in hearing, no nasal discharge, no sore throat. CARDIOVASCULAR: No current chest pain or palpitations. PULMONARY: Shortness of breath is improved. GASTROINTESTINAL: The patient is tolerating diet. MUSCULOSKELETAL: Complains of weakness. PHYSICAL EXAMINATION: VITAL SIGNS: Blood pressure 110/77, pulse in the 100s. This is a chronically ill male, lying in bed on the medical floor. HEENT: Head is atraumatic. Pupils equal, roving to light. Oropharynx is without exudate. Nares clear. NECK: There is no JVP. There is no thyromegaly, no mass. CARDIOVASCULAR: Regular, tachycardic. There is no S3, S4 gallop. LUNGS: Coarse with equal thoracic movement. ABDOMEN: Soft, nondistended, nontender. EXTREMITIES: No clubbing, no cyanosis. NEUROLOGIC: He is awake. He is alert. LABORATORY DATA: Hemoglobin 10, hematocrit 31, white cell count 6000. Sodium 137, potassium 4.2, BUN 59, creatinine 3.2. IMPRESSION: * Renal dysfunction. * Cardiomyopathy. * Diabetes mellitus. * Volume overload. PLAN: The patient remains on the diuretics. The patient's electrolytes have all been repleted. The patient now with significant tachycardia. We will decrease the dobutamine to 2.5 mcg. We will await final recommendations per Cardiology. There is no need for any form of renal replacement therapy. We will follow closely. TID: [id number] RECEIPT: [id number]
--- NOTE | 2024-08-19 18:22 | NUR ---
Patient states he is feeling fatigued with some mild nausea, vitals as charted. Heart rate has been persistently elevated in sinus tachycardia. Nurse Gregorio administered Zofran per protocol and assisted patient to bed. Patient is pending Cardiology follow up for further orders related to dobutamine gtt. Will inform shift commander nurse of incident.
--- NOTE | 2024-08-19 23:49 | PN ---
Reason for consult: CHF HPI/story at presentation: This is a pleasant gentleman with past medical history as per present with complaints of shortness of breath, lower extremity meniscal edema. He has known history of multivessel coronary disease, currently managed medically because patient refused bypass surgery because he does not want to be on anticoagulation in the perioperative. Patient also had elevated troponins during hospitalization (anticoagulation for this as well because of issues with retina and is worried about losing more vision. No active issues with chest pain at this time. On diuresis and failed outpatient diuretic therapy. Subjective: 08/15/2024 no complaints 08/16/2024 no complaints 08/17/2024 feeling better 08/19/2024 feeling better Past medical history: See below Allergies, Meds See chart Review of systems Review of Systems Constitutional: Negative for chills and fever. HENT: Negative for ear discharge and ear pain. Eyes: Negative for photophobia and discharge. Respiratory: Negative for cough, sputum production and stridor. Cardiovascular: Negative for chest pain and palpitations. Gastrointestinal: Negative for diarrhea and vomiting. Genitourinary: Negative for frequency. Musculoskeletal: Negative for myalgias. Skin: Negative for rash. Neurological: Negative for focal weakness and seizures. Endo/Heme/Allergies: Negative for polydipsia. Psychiatric/Behavioral: Negative for hallucinations. Vitals see chart PHYSICAL EXAMINATION GENERAL: The patient is alert and oriented*3 HEENT: Nonicteric sclerae, non traumatic HEART: Regular rate and rhythm with no murmurs LUNGS: Clear to auscultation bilaterally ABDOMEN: No acute issues, non tender GENITAL, RECTAL: deferred SKIN: No rash NEUROLOGIC: NFND EXTREMITIES:EDEMA 07/2024 ASSESSMENT EXACERBATION OF CHF, CARDIOMYOPATHY Noncompliant with diuretics at home History of ischemic cardiomyopathy MVCAD on cath 07/2024 Stress test with infarction pattern, 02/2024 Ejection fraction of 15 to 20%, 06/2024 On diuresis with Bumex, 06/2024 DVT diagnosed 07/2024 s/p IVC filter NSTEMI Initial troponin of 1600, trending down HEMATURIA Moderate hematuria, 06/2024 CHRONIC KIDNEY DISEASE Stage III 3.4at presentation Creatinine at discharge from hospital, 06/2024 was 2.2 HYPERTENSION HYPERLIPIDEMIA DIABETES, TOBACCO USE CORE MEASURES Not on guideline directed medical therapy for cardiomyopathy given renal dysfunction OTHER MEDICAL PROBLEMS Anxiety disorder Diabetic neuropathy PLAN 08/15/2024 Currently, has significant issues with swelling in the scrotum, lower extremity edema. Still not interested in anticoagulation at this time, not interested in bypass at this time. Troponins are elevated and progressive muscle loss with significant troponinemia discussed and patient understands risk but still does not want to proceed with surgery at this time. Renal function was elevated at presentation at 3.3. Testicular ultrasound with no mass but did show evidence of bilateral hydroceles. Start dobutamine to help with diuresis and renal function 08/16/2024 Was started on dobutamine this morning, continue watch renal function, output. Had a spell of hypotension today and therefore, had to be moved to the PCU for further evaluation management. Family is discussing bypass and long-term care with rest of family - but no immediate plans. Ultrasound with evidence of hydrocele. Currently on dobutamine at 5 metoprolol 50 losartan 25 Bumex 1 twice daily will hold beta-demario and losartan given hypotension and dobutamine use. 08/17/2024 Overall doing well, edema in his lower extremities test with squamous getting better. Remains on diuresis with Bumex b.i.d., remains on dobutamine drip at 5. We will continue. Renal function is worse today at 3.5 but given ongoing issues with edema would continue aggressive diuresis. Hemodynamically, doing well. Continue to watch renal function, nephrology is on board, appreciate. Long-term prognosis without the bypass is poor. 08/19/2024 Doing well, still continuing diuresis, dose of dobutamine was changed to 3 mcg because of issues with tachycardia and dizziness. Continue watch renal function, urine output with this. Remains on diuretics. ATTESTATION I was involved substantially in the care of this patient Number and complexity of problems addressed 1 illness with severe exacerbation Amount and or complexity of data Review of prior external note(s) from each unique source - Number 2+_ Ordering of each unique test - Number 0 Review of the result(s) of each unique test - Number 2+ Assessment requiring an independent historian(s) No Independent interpretation of test performed by another MD/QHCP/appropriate source (not separately reported) No Discussion of management or test interpretation with external MD/QHCP/appropriate source (not separately reported) No Risk status (cardiac, billing related) moderate Vitals/Labs Vital Signs Date Time Temp Pulse Resp B/P (MAP) Pulse Ox O2 Delivery O2 Flow Rate FiO2 08/19/24 19:20 98.2 117 20 121/70 98 Room Air 08/19/24 08:35 0 21 Laboratory Tests 08/19/24 03:18 Medications Current Medications Aspirin 324 mg ONCE STAT PO Last administered on 08/14/24at 18:52; Start 08/14/24 at 18:36; Stop 08/14/24 at 18:37; Status DC Furosemide 40 mg ONCE STAT IV Last administered on 08/14/24at 18:52; Start 08/14/24 at 18:37; Stop 08/14/24 at 18:38; Status DC Nitroglycerin 0.4 mg AD PRN SL; Start 08/14/24 at 19:30; Stop 09/13/24 at 19:29 Acetaminophen 650 mg Q6H PRN PO; Start 08/14/24 at 19:30; Stop 09/13/24 at 19:29 Ondansetron HCl 4 mg Q6H PRN IV Last administered on 08/19/24at 18:19; Start 08/14/24 at 19:30; Stop 09/13/24 at 19:29 Morphine Sulfate 2 mg Q4H PRN IV Last administered on 08/15/24at 14:04; Start 08/14/24 at 19:30; Stop 08/16/24 at 10:42; Status DC Hydralazine HCl 10 mg Q6H PRN IV; Start 08/14/24 at 19:30; Stop 09/13/24 at 19:29 Aspirin 81 mg DAILY PO Last administered on 08/19/24at 08:22; Start 08/15/24 at 09:00; Stop 09/14/24 at 08:59 Insulin Human Regular INSULIN SLIDING SCAL... ACHS SQ Last administered on 08/19/24at 12:06; Start 08/14/24 at 21:00; Stop 09/13/24 at 20:59 Hydromorphone HCl 0.25 mg ONCE ONCE IVP Last administered on 08/14/24at 22:53; Start 08/14/24 at 22:30; Stop 08/14/24 at 22:31; Status DC Atorvastatin Calcium 20 mg DAILY PO Last administered on 08/16/24at 08:36; Start 08/16/24 at 09:00; Stop 08/16/24 at 10:43; Status DC Latanoprost 1 GGT OP HS MARA HS OP Last administered on 08/19/24at 20:43; Start 08/15/24 at 21:00; Stop 09/14/24 at 20:59 Losartan Potassium 25 mg DAILY PO Last administered on 08/16/24at 08:35; Start 08/16/24 at 09:00; Stop 08/16/24 at 19:54; Status DC Metoprolol Succinate 50 mg DAILY PO Last administered on 08/16/24at 08:36; Start 08/16/24 at 09:00; Stop 08/16/24 at 19:54; Status DC Hydroxyzine HCl 50 mg BID PO Last administered on 08/19/24at 20:31; Start 08/15/24 at 21:00; Stop 09/14/24 at 20:59 Levothyroxine Sodium 50 mcg DAILY PO Last administered on 08/19/24at 08:22; Start 08/16/24 at 09:00; Stop 09/15/24 at 08:59 Bumetanide 1 mg ONCE ONCE IM Last administered on 08/15/24at 10:25; Start 08/15/24 at 10:00; Stop 08/15/24 at 10:01; Status DC Bumetanide 1 mg BID PO Last administered on 08/19/24at 20:32; Start 08/15/24 at 21:00; Stop 09/14/24 at 20:59 Tamsulosin HCl 0.4 mg ONCE ONCE PO; Start 08/15/24 at 10:00; Stop 08/15/24 at 09:52; Status DC Tamsulosin HCl 0.4 mg DAILY PO Last administered on 08/19/24at 08:22; Start 08/15/24 at 10:00; Stop 09/14/24 at 09:59 Docusate Sodium 100 mg BID PO Last administered on 08/19/24at 20:31; Start 08/15/24 at 10:00; Stop 09/14/24 at 09:59 Docusate Sodium 100 mg ONCE ONCE PO; Start 08/15/24 at 10:00; Stop 08/15/24 at 09:54; Status DC Hydromorphone HCl 0.5 mg Q6H PRN IVP Last administered on 08/18/24at 22:13; Start 08/15/24 at 10:00; Stop 08/20/24 at 09:59 Pharmacy Profile Note 1 each AD MISC; Start 08/15/24 at 15:00; Stop 08/19/24 at 07:38; Status DC Vitamin B Complex/ Vit C/Folic Acid 1 cap DAILY PO Last administered on 08/19/24at 08:21; Start 08/16/24 at 09:00; Stop 09/15/24 at 08:59 Dobutamine HCl/ Dextrose 250 ml @ 0 mls/hr PROTOCOL IV Last administered on 08/19/24at 18:14; Start 08/16/24 at 11:00; Stop 09/15/24 at 10:59 Morphine Sulfate 2 mg Q4H PRN IV Last administered on 08/19/24at 04:11; Start 08/16/24 at 11:00; Stop 08/21/24 at 19:29 Atorvastatin Calcium 20 mg HS PO Last administered on 08/19/24at 20:31; Start 08/17/24 at 21:00; Stop 09/15/24 at 08:59 Iron Sucrose 200 mg DAILY22 IV Last administered on 08/18/24at 22:37; Start 08/16/24 at 22:00; Stop 08/19/24 at 07:38; Status DC Iron Sucrose 200 mg/Sodium Chloride 250 ml @ 1,000 mls/hr DAILY22 IVP Last administered on 08/16/24at 22:19; Start 08/16/24 at 22:00; Stop 08/17/24 at 06:31; Status DC Albumin Human 50 ml @ 0 mls/hr Q8H5 IV Last administered on 08/19/24at 20:32; Start 08/17/24 at 21:00; Stop 08/20/24 at 20:59 Sodium Chloride 1 spray Q6H PRN NS Last administered on 08/18/24at 04:11; Start 08/17/24 at 22:00; Stop 09/16/24 at 21:59 Magnesium Sulfate 50 ml @ As Directed STK-MED ONCE IV Last administered on 08/19/24at 09:50; Start 08/19/24 at 09:32; Stop 08/19/24 at 09:33; Status DC GUSTAVO PRUITT MD Aug 19, 2024 23:49
[2024-08-20] VITALS (8 sets, daily range): BP systolic 111–128; BP diastolic 70–82; PULSE 68–117; RESP 16–20; TEMP 97.6–98.7; O2SAT 96
--- NOTE | 2024-08-20 10:09 | PN ---
[facility] PROGRESS NOTE Date of Service: Aug 20, 2024 Time of Service: 10:06 SUBJECTIVE: [ ] This is a 64-year-old male who is well known to [facility] for fluid overload chronic CHF with EF of 20%. Chief complaint of anasarca to lower extremity scrotal edema and pain to scrotal. Patient has a significant social determinants noncompliance with treatment in the past. On last admission patient had to be started on small dose of dobutamine per his primary human resource intern's which has been already consulted we will follow his recommendation patient received a dose of Bumex1 mg IV now. Patient on room air. Denied chest pain. 08/16/24 patient is seen and examined with attending. Reviewed chart and discussed plan of care. Review note human resource intern's in detail had a discussion with patient of troponin elevated and progressive muscle loss patient understands risks but still does not want to proceed with surgery. Patient was started on dobutamine to help with diuresis and renal function. Patient denies chest pain events overnight. 08/17/24 patient is seen and examined reviewed chart discussed case with attending. Patient continues on dobutamine drip anasarca improved scrotal swelling as well. Patient blood pressure in the soft side patient denied chest pain or shortness for breath. 08/18/24 patient seen and examied with Attending : reviewed chart discussed case. Overall doing well, edema in his lower extremities improve significantly Remains on diuresis with Bumex b.i.d PO and remains on dobutamine drip at [address] Siv. creatinine today is 3.0 from 3.5. Body Team Member is following. Primary nurse report no chest pain event overnight. 08/19/24 patient is fully awake alert oriented x3 denies palpation dizziness, chest pain. continue on Dobutamine drip HR tachycardia. bilateral edema to lower ext improving. scrotal swelling improved significantly. The patient requesting medical records. will have social service worker talked with patient. 08/20/24 The patient appears comfortable edema lower ext improving, JOAQUÍN: creatinine increased Dobutamine was decreased yesterday given to renal function and tachycardia per human resource intern: cont with Tachycardiac HR 112, CMP pending results no chest pain event overnight. REVIEW OF SYSTEMS CONSTITUTIONAL: Denies fevers, chills, or night sweats. No unintentional weight loss reported. NEUROLOGICAL: Denies headache, amaurosis fugax, motor weakness, sensory deficit, vertigo/spinning sensation, gait abnormalities, or tremors. ENT: No hearing loss, otalgia, otorrhea, rhinitis, rhinorrhea, hoarseness, or sore throat. CARDIOVASCULAR: Denies any exertional angina, dyspnea on exertion, orthopnea, paroxysmal nocturnal dyspnea, palpitations, life-threatening arrhythmias, claudication. PULMONARY: Denies any shortness of breath, cough, phlegm/sputum, hemoptysis, pleuritic chest pain. SLEEP: Denies morning headaches, daytime somnolence or napping. Denies difficulty falling asleep, staying asleep, waking from sleep. Denies knowledge of snoring. GASTROINTESTINAL: Denies any type of dysphagia to either liquids or solids. Denies nausea, vomiting, pyrosis, early satiety, abdominal pain, diarrhea, constipation, or changes in stool consistency or caliber. Denies coffee-ground emesis, hematemesis, hematochezia, or melanotic stools. GENITOURINARY: Denies frequency, urgency, nocturia, hematuria or incontinence (Storage/Irritative symptoms.) Low urinary stream, straining to void, urinary intermittency or hesitancy, splitting of the voiding stream, terminal dribbling. ENDOCRINOLOGIC: Denies polyuria, polydipsia, polyphagia or heat/cold intolerances. HEMATOLOGIC: Denies thrombophilia/previous clots, or coagulopathy/bleeding disorders. ONCOLOGIC: Denies personal history of malignancy. DERMATOLOGIC: Denies rashes or pruritus. PSYCHIATRIC: Denies any suicidal or homicidal ideation. Denies hallucinations. PHYSICAL EXAM GENERAL APPEARANCE: The patient is awake, alert, and oriented, in no acute cardiopulmonary distress. NEUROLOGICAL: Cranial nerves II-XII grossly intact. Motor is 5/5 in bilateral upper and lower extremities proximal to distal. No sensory deficits. HEENT: Face is symmetric. Pupils are equal and reactive. Extraocular movements are intact. NECK: Supple. No JVD. No thyromegaly. No submental, submandibular, pre- /postauricular, occipital or supraclavicular lymphadenopathy. CHEST: Normal chest expansion. No Telemetry. LUNGS: Absence of any rales, rhonchi or any wheezing. CARDIOVASCULAR: Regular. S1 and S2 normal. No appreciable rubs, murmurs or gallops. ABDOMEN: Soft, nontender, and nondistended. There is no rebound, voluntary guarding, or rigidity. : Deferred. No Guillermo. EXTREMITIES: Non-edematous and not cyanotic. No clubbing. Good capillary refill. SKIN: No skin breakdown. Vital Signs (last 8hr) Date Time Temp Pulse Resp B/P (MAP) Pulse Ox O2 Delivery O2 Flow Rate FiO2 08/20/24 09:33 116/82 08/20/24 09:30 96 Room Air* 0 21 08/20/24 08:18 97.5 117 18 116/82 97 Room Air 08/20/24 03:20 98.8 111 20 128/78 98 Room Air LABS: Laboratory: Test 08/20/24 06:08 08/19/24 03:18 Range/Units Whole Blood Glucose 155 H 70-110 MG/DL White Blood Count 6.4 4.8-10.8 K/uL Red Blood Count 3.82 L 4.50-6.20 MIL/uL Hemoglobin 10.1 L 14.0-18.0 g/dL Hematocrit 31.6 L 42-54 % Mean Corpuscular Volume 82.7 79-99 fL Mean Corpuscular Hemoglobin 26.4 L 27.0-33.0 pg Mean Corpuscular Hemoglobin Concent 32.0 32.0-36.0 g/dL Red Cell Distribution Width 18.1 H 11.0-15.5 % Platelet Count 145 130-400 K/uL Mean Platelet Volume 10.4 7.5-10.5 fL Nucleated Red Blood Cells 0.0 0.0-0.19 % Sodium Level 137 136-145 mmol/L Potassium Level 4.2 3.5-5.1 mmol/L Chloride Level 101 101-111 mmol/L Carbon Dioxide Level 29 21-32 mmol/L Blood Urea Nitrogen 59 H 7-18 mg/dL Creatinine 3.2 H 0.5-1.3 mg/dL Glomerular Filtration Rate Calc 21 >90 mL/min Random Glucose 115 H 70-105 mg/dL Total Calcium 8.9 8.5-10.1 mg/dL Phosphorus Level 3.7 2.5-4.9 mg/dL Magnesium Level 1.80 1.80-2.40 mg/dL Current Medications Medications (Trade) Dose Ordered Sig/Anjelica Route PRN Reason Start Time Stop Time Status Last Admin Dose Admin Acetaminophen (TYLenol 325MG TAB) 650 mg Q6H PRN PO TEMPERATURE GREATER THAN 101.5 08/14/24 19:30 09/13/24 19:29 Albumin Human 50 ml @ 0 mls/hr Q8H5 IV 08/17/24 21:00 08/20/24 20:59 08/20/24 05:19 25 MLS/HR Aspirin (Aspirin 81mg Chew Tab) 324 mg ONCE STAT PO 08/14/24 18:36 08/14/24 18:37 DC 08/14/24 18:52 324 MG Aspirin (Aspirin 81mg Ec Tab) 81 mg DAILY PO 08/15/24 09:00 09/14/24 08:59 08/20/24 09:15 81 MG Atorvastatin Calcium (LIPItor 20MG) 20 mg DAILY PO 08/16/24 09:00 08/16/24 10:43 DC 08/16/24 08:36 20 MG Atorvastatin Calcium (LIPItor 20MG) 20 mg HS PO 08/17/24 21:00 09/15/24 08:59 08/19/24 20:31 20 MG Bumetanide (Bumex 1mg Tab) 1 mg BID PO 08/15/24 21:00 09/14/24 20:59 08/20/24 09:15 1 MG Dobutamine HCl/ Dextrose 250 ml @ 0 mls/hr PROTOCOL IV 08/16/24 11:00 09/15/24 10:59 08/20/24 09:33 17.46 MLS/HR Docusate Sodium (COLace 100MG CAP) 100 mg BID PO 08/15/24 10:00 09/14/24 09:59 08/20/24 09:15 100 MG Furosemide (LASix 40MG VIAL) 40 mg ONCE STAT IV 08/14/24 18:37 08/14/24 18:38 DC 08/14/24 18:52 40 MG Hydralazine HCl (APRESOLine 20MG INJ) 10 mg Q6H PRN IV For:SBP above 160;DBP above 90 08/14/24 19:30 09/13/24 19:29 Hydromorphone HCl (DiLAUDid 0.5MG INJ) 0.5 mg Q6H PRN IVP SEVERE PAIN (7-10) 08/15/24 10:00 08/20/24 09:59 DC 08/18/24 22:13 0.5 MG Hydroxyzine HCl (ATArax 25MG TAB) 50 mg BID PO 08/15/24 21:00 09/14/24 20:59 08/20/24 09:15 50 MG Insulin Human Regular (humuLIN R 100 UNIT/ML 3ML) INSULIN SLIDING SCAL... ACHS SQ 08/14/24 21:00 09/13/24 20:59 08/19/24 12:06 2 UNIT Iron Sucrose (VenoFER) 200 mg DAILY22 IV 08/16/24 22:00 08/19/24 07:38 DC 08/18/24 22:37 200 MG Iron Sucrose 200 mg/Sodium Chloride 250 ml @ 1,000 mls/hr DAILY22 IVP 08/16/24 22:00 08/17/24 06:31 DC 08/16/24 22:19 1,000 MLS/HR Latanoprost (Xalatan) 1 GGT OP HS ANJELICA HS OP 08/15/24 21:00 09/14/24 20:59 08/19/24 20:43 1 DROP Levothyroxine Sodium (SYNTHroid 50MCG TAB) 50 mcg DAILY PO 08/16/24 09:00 09/15/24 08:59 08/20/24 09:15 50 MCG Losartan Potassium (CozAAR 25MG TAB) 25 mg DAILY PO 08/16/24 09:00 08/16/24 19:54 DC 08/16/24 08:35 25 MG Metoprolol Succinate (TopROL XL) 50 mg DAILY PO 08/16/24 09:00 08/16/24 19:54 DC 08/16/24 08:36 50 MG Morphine Sulfate (morPHINE 2MG SYG) 2 mg Q4H PRN IV SEVERE PAIN (7-10) 08/16/24 11:00 08/20/24 10:02 DC 08/19/24 04:11 2 MG Morphine Sulfate (morPHINE 4MG SYG) 2 mg Q4H PRN IV SEVERE PAIN (7-10) 08/14/24 19:30 08/16/24 10:42 DC 08/15/24 14:04 2 MG Nitroglycerin (Nitrostat) 0.4 mg AD PRN SL CHEST PAIN 08/14/24 19:30 09/13/24 19:29 Ondansetron HCl (zoFRAN 4MG INJ) 4 mg Q6H PRN IV NAUSEA/VOMITING 08/14/24 19:30 09/13/24 19:29 08/20/24 09:21 4 MG Pharmacy Profile Note (Lace Assessment) 1 each AD MISC 08/15/24 15:00 08/19/24 07:38 DC Sodium Chloride ([place] Nasal [place]) 1 spray Q6H PRN NS DRYNESS 08/17/24 22:00 09/16/24 21:59 08/18/24 04:11 1 SPRAY Tamsulosin HCl (FloMAX) 0.4 mg DAILY PO 08/15/24 10:00 09/14/24 09:59 08/20/24 09:15 0.4 MG Vitamin B Complex/ Vit C/Folic Acid (Nephrovite Tablet) 1 cap DAILY PO 08/16/24 09:00 09/15/24 08:59 08/20/24 09:15 1 CAP DIAGNOSTICS / RADIOLOGY: [ ] ASSESSMENT: JOAQUÍN on Chronic renal failure POA Cardiac renal syndrome Anasarca wheeping to lower extPOA Scrotum swelling with bilateral moderate hydrocele. POA Elevated troponin, most likely NV Type II triggered by fluid overload EF < 20% POA Uncontrolled Diabetes mellitius type2, POA acute on chronic CHF with LVEF 20% stage III diastolic dysfunction, POA Right lower extremity wound weeping POA Hypertension History of stroke] Recent bilateral vitreous hemorrhage POA Diabetic retinopathy and neuropathy POA Noncompliance with medication Bumex POA Noncompressible thrombus is seen in the right popliteal vein consistent with deep venous thrombosis. not a candidate for anticoagulation therapy POA s/p post IVC filter placement secondary to DVT and contraindication to anticoagulation. left plantar foot Ulcer; not poa PLAN: [ ] admit to PCCU with Tele consultants: DR Regan is following decreased Dubatamine to 3mcg, creatinine trending up: CMP now will follow results. Home medication resume: Bumex 1 mg PO BID will continue with Diuresis for cardiomyopathy. continue with diuresis with Dobutamine: bilateral edema lower ext improving and scrotal swelling improving. cont with local wound care to venous open wounds as directed by wound care nurse fluid restriction : 1.5 liter daily strict I/O daily weight Scrotum swelling with bilateral moderate hydrocele. resolved DVT/GI:ppx patient has IVC filter not a candidate of blood thinner. cont with PUD ppx all questions answered further orders as per response to IV diuretics case discussed to attending Dr Ariel Cavazos Cd This document was generated in part using voice recognition software, occasional wrong word or sound alike substitutions may have occurred due to the inherent limitations of voice recognition software. Read the chart carefully and recognize using context, where the substitutions have occurred. Although every effort was made to edit the content, color making supervisor and typing errors may occur ATTESTATION BY PHYSICIAN I have seen and examined the patient. I reviewed the documentation, medical decision making, and treatment plan as noted by the mid-level provider above. I agree with the findings and plan of care. Nieves Cavazos MD, ELIZABETH NP Aug 20, 2024 10:09
--- NOTE | 2024-08-20 10:39 | NUR ---
Dr. Becca Hudson, application consultant, rounding on patient. Dr. Hudson reviewed patient's kidney status and updated patient on plan of care. All questions/concerns answered by Dr. Hudson.
[2024-08-20 11:12] LABS: ALBUMIN 3.1 g/dL (3.5-5.0); BILIRUBIN,TOTAL 1.8 mg/dL (0.2-1.0); CREATININE 3.5 mg/dL (0.5-1.3); MAGNESIUM 2.2 mg/dL (1.80-2.40); POTASSIUM 4.1 mmol/L (3.5-5.1); TOTAL PROTEIN, SERUM 7.6 g/dL (6.0-8.3)
--- NOTE | 2024-08-20 11:52 | PN ---
SUBJECTIVE: A 64-year-old male with a history of known cardiomyopathy. The patient remains on the dobutamine. The patient has had acute on chronic renal failure in the hospital. Creatinine has been elevated. The patient remains on the diuretics for the edema. The patient's weight has declined while in the hospital and he is being seen as a followup visit for all of the above. REVIEW OF SYSTEMS: GENERAL: He is feeling somewhat improved since admission. HEENT: No change in vision. No change in hearing. CARDIOVASCULAR: There is no current chest pain or palpitations. PULMONARY: Shortness of breath is improved. GASTROINTESTINAL: The patient is tolerating a diet. MUSCULOSKELETAL: Complains of weakness. PHYSICAL EXAMINATION: VITAL SIGNS: Blood pressure 116/82, pulse in the 100s. GENERAL: He is a chronically ill male, older than appearing. HEENT: Head is atraumatic. Pupils equal, roving to light. Oropharynx is without exudate. Nares clear. NECK: There is no JVP. There is no thyromegaly, no mass. CARDIOVASCULAR: Regular. There is no S3, S4 gallop. LUNGS: Coarse with equal thoracic movement. ABDOMEN: Soft, nondistended, nontender. EXTREMITIES: Reveal no clubbing, no cyanosis. NEUROLOGIC: He is awake. He is alert. LABORATORY DATA: Hemoglobin 10, hematocrit 31. Sodium 137, potassium 4.2, BUN 39, creatinine is 3.2. IMPRESSION: * Acute on chronic renal failure. * Cardiomyopathy. * Hypertension. * Anemia. PLAN: The patient does have significant renal dysfunction. The patient's creatinine 3.2 mg/dL is essentially at baseline. There is no acute need for any form of renal replacement therapy. He continues with the diuretics. The patient also continues with the dobutamine. We will continue to follow closely. Labs can be repeated in the morning. TID: [id number] RECEIPT: [id number]
[2024-08-20] MEDS: acetaMINOPHEN 325 MG TAB PO PRN (12:13)
--- NOTE | 2024-08-20 14:58 | PN ---
Reason for consult: CHF HPI/story at presentation: This is a pleasant gentleman with past medical history as per present with complaints of shortness of breath, lower extremity meniscal edema. He has known history of multivessel coronary disease, currently managed medically because patient refused bypass surgery because he does not want to be on anticoagulation in the perioperative. Patient also had elevated troponins during hospitalization (anticoagulation for this as well because of issues with retina and is worried about losing more vision. No active issues with chest pain at this time. On diuresis and failed outpatient diuretic therapy. Subjective: 08/15/2024 no complaints 08/16/2024 no complaints 08/17/2024 feeling better 08/19/2024 feeling better 08/20/2024 feeling better Past medical history: See below Allergies, Meds See chart Review of systems Review of Systems Constitutional: Negative for chills and fever. HENT: Negative for ear discharge and ear pain. Eyes: Negative for photophobia and discharge. Respiratory: Negative for cough, sputum production and stridor. Cardiovascular: Negative for chest pain and palpitations. Gastrointestinal: Negative for diarrhea and vomiting. Genitourinary: Negative for frequency. Musculoskeletal: Negative for myalgias. Skin: Negative for rash. Neurological: Negative for focal weakness and seizures. Endo/Heme/Allergies: Negative for polydipsia. Psychiatric/Behavioral: Negative for hallucinations. Vitals see chart PHYSICAL EXAMINATION GENERAL: The patient is alert and oriented*3 HEENT: Nonicteric sclerae, non traumatic HEART: Regular rate and rhythm with no murmurs LUNGS: Clear to auscultation bilaterally ABDOMEN: No acute issues, non tender GENITAL, RECTAL: deferred SKIN: No rash NEUROLOGIC: NFND EXTREMITIES:EDEMA 07/2024 ASSESSMENT EXACERBATION OF CHF, CARDIOMYOPATHY Noncompliant with diuretics at home History of ischemic cardiomyopathy MVCAD on cath 07/2024 Stress test with infarction pattern, 02/2024 Ejection fraction of 15 to 20%, 06/2024 On diuresis with Bumex, 06/2024 DVT diagnosed 07/2024 s/p IVC filter NSTEMI Initial troponin of 1600, trending down HEMATURIA Moderate hematuria, 06/2024 CHRONIC KIDNEY DISEASE Stage III 3.4at presentation Creatinine at discharge from hospital, 06/2024 was 2.2 HYPERTENSION HYPERLIPIDEMIA DIABETES, TOBACCO USE CORE MEASURES Not on guideline directed medical therapy for cardiomyopathy given renal dysfunction OTHER MEDICAL PROBLEMS Anxiety disorder Diabetic neuropathy PLAN 08/15/2024 Currently, has significant issues with swelling in the scrotum, lower extremity edema. Still not interested in anticoagulation at this time, not interested in bypass at this time. Troponins are elevated and progressive muscle loss with significant troponinemia discussed and patient understands risk but still does not want to proceed with surgery at this time. Renal function was elevated at presentation at 3.3. Testicular ultrasound with no mass but did show evidence of bilateral hydroceles. Start dobutamine to help with diuresis and renal function 08/16/2024 Was started on dobutamine this morning, continue watch renal function, output. Had a spell of hypotension today and therefore, had to be moved to the PCU for further evaluation management. Family is discussing bypass and long-term care with rest of family - but no immediate plans. Ultrasound with evidence of hydrocele. Currently on dobutamine at 5 metoprolol 50 losartan 25 Bumex 1 twice daily will hold beta-demario and losartan given hypotension and dobutamine use. 08/17/2024 Overall doing well, edema in his lower extremities test with squamous getting better. Remains on diuresis with Bumex b.i.d., remains on dobutamine drip at 5. We will continue. Renal function is worse today at 3.5 but given ongoing issues with edema would continue aggressive diuresis. Hemodynamically, doing well. Continue to watch renal function, nephrology is on board, appreciate. Long-term prognosis without the bypass is poor. 08/19/2024 Doing well, still continuing diuresis, dose of dobutamine was changed to 3 mcg because of issues with tachycardia and dizziness. Continue watch renal function, urine output with this. Remains on diuretics. 08/20/2024 Doing well, swelling to patient is about 80% better. Creatinine is slightly elevated still at 3.5, baseline of close to 1.9 back in July 2024. May consider tapering diuresis once regimen is complete, patient was noncompliant with diuretics at home, on statins Bumex aspirin at this time. Has been having issues with hallucinations defer managemen to primary team, likely home in the next day or two. Continue dobutamine at 3 ATTESTATION I was involved substantially in the care of this patient Number and complexity of problems addressed 1 illness with severe exacerbation Amount and or complexity of data Review of prior external note(s) from each unique source - Number 2+_ Ordering of each unique test - Number 0 Review of the result(s) of each unique test - Number 2+ Assessment requiring an independent historian(s) No Independent interpretation of test performed by another MD/QHCP/appropriate source (not separately reported) No Discussion of management or test interpretation with external MD/QHCP/appropriate source (not separately reported) No Risk status (cardiac, billing related) moderate Vitals/Labs Vital Signs Date Time Temp Pulse Resp B/P (MAP) Pulse Ox O2 Delivery O2 Flow Rate FiO2 08/20/24 12:09 97.9 117 18 115/72 96 Room Air 08/20/24 09:30 0 21 Laboratory Tests 08/20/24 10:36 Medications Current Medications Aspirin 324 mg ONCE STAT PO Last administered on 08/14/24at 18:52; Start 08/14/24 at 18:36; Stop 08/14/24 at 18:37; Status DC Furosemide 40 mg ONCE STAT IV Last administered on 08/14/24at 18:52; Start 08/14/24 at 18:37; Stop 08/14/24 at 18:38; Status DC Nitroglycerin 0.4 mg AD PRN SL; Start 08/14/24 at 19:30; Stop 09/13/24 at 19:29 Acetaminophen 650 mg Q6H PRN PO; Start 08/14/24 at 19:30; Stop 09/13/24 at 19:29 Ondansetron HCl 4 mg Q6H PRN IV Last administered on 08/20/24at 09:21; Start 08/14/24 at 19:30; Stop 09/13/24 at 19:29 Morphine Sulfate 2 mg Q4H PRN IV Last administered on 08/15/24at 14:04; Start 08/14/24 at 19:30; Stop 08/16/24 at 10:42; Status DC Hydralazine HCl 10 mg Q6H PRN IV; Start 08/14/24 at 19:30; Stop 09/13/24 at 19:29 Aspirin 81 mg DAILY PO Last administered on 08/20/24at 09:15; Start 08/15/24 at 09:00; Stop 09/14/24 at 08:59 Insulin Human Regular INSULIN SLIDING SCAL... ACHS SQ Last administered on 08/20/24at 12:38; Start 08/14/24 at 21:00; Stop 09/13/24 at 20:59 Hydromorphone HCl 0.25 mg ONCE ONCE IVP Last administered on 08/14/24at 22:53; Start 08/14/24 at 22:30; Stop 08/14/24 at 22:31; Status DC Atorvastatin Calcium 20 mg DAILY PO Last administered on 08/16/24at 08:36; Start 08/16/24 at 09:00; Stop 08/16/24 at 10:43; Status DC Latanoprost 1 GGT OP HS MARA HS OP Last administered on 08/19/24at 20:43; Start 08/15/24 at 21:00; Stop 09/14/24 at 20:59 Losartan Potassium 25 mg DAILY PO Last administered on 08/16/24at 08:35; Start 08/16/24 at 09:00; Stop 08/16/24 at 19:54; Status DC Metoprolol Succinate 50 mg DAILY PO Last administered on 08/16/24at 08:36; Start 08/16/24 at 09:00; Stop 08/16/24 at 19:54; Status DC Hydroxyzine HCl 50 mg BID PO Last administered on 08/20/24at 09:15; Start 08/15/24 at 21:00; Stop 09/14/24 at 20:59 Levothyroxine Sodium 50 mcg DAILY PO Last administered on 08/20/24at 09:15; Start 08/16/24 at 09:00; Stop 09/15/24 at 08:59 Bumetanide 1 mg ONCE ONCE IM Last administered on 08/15/24at 10:25; Start 08/15/24 at 10:00; Stop 08/15/24 at 10:01; Status DC Bumetanide 1 mg BID PO Last administered on 08/20/24at 09:15; Start 08/15/24 at 21:00; Stop 09/14/24 at 20:59 Tamsulosin HCl 0.4 mg ONCE ONCE PO; Start 08/15/24 at 10:00; Stop 08/15/24 at 09:52; Status DC Tamsulosin HCl 0.4 mg DAILY PO Last administered on 08/20/24at 09:15; Start 08/15/24 at 10:00; Stop 09/14/24 at 09:59 Docusate Sodium 100 mg BID PO Last administered on 08/20/24at 09:15; Start 08/15/24 at 10:00; Stop 09/14/24 at 09:59 Docusate Sodium 100 mg ONCE ONCE PO; Start 08/15/24 at 10:00; Stop 08/15/24 at 09:54; Status DC Hydromorphone HCl 0.5 mg Q6H PRN IVP Last administered on 08/18/24at 22:13; Start 08/15/24 at 10:00; Stop 08/20/24 at 09:59; Status DC Pharmacy Profile Note 1 each AD MISC; Start 08/15/24 at 15:00; Stop 08/19/24 at 07:38; Status DC Vitamin B Complex/ Vit C/Folic Acid 1 cap DAILY PO Last administered on 08/20/24at 09:15; Start 08/16/24 at 09:00; Stop 09/15/24 at 08:59 Dobutamine HCl/ Dextrose 250 ml @ 0 mls/hr PROTOCOL IV Last administered on 08/20/24at 09:33; Start 08/16/24 at 11:00; Stop 09/15/24 at 10:59 Morphine Sulfate 2 mg Q4H PRN IV Last administered on 08/19/24at 04:11; Start 08/16/24 at 11:00; Stop 08/20/24 at 10:02; Status DC Atorvastatin Calcium 20 mg HS PO Last administered on 08/19/24at 20:31; Start 08/17/24 at 21:00; Stop 09/15/24 at 08:59 Iron Sucrose 200 mg DAILY22 IV Last administered on 08/18/24at 22:37; Start 08/16/24 at 22:00; Stop 08/19/24 at 07:38; Status DC Iron Sucrose 200 mg/Sodium Chloride 250 ml @ 1,000 mls/hr DAILY22 IVP Last administered on 08/16/24at 22:19; Start 08/16/24 at 22:00; Stop 08/17/24 at 06:31; Status DC Albumin Human 50 ml @ 0 mls/hr Q8H5 IV Last administered on 08/20/24at 05:19; Start 08/17/24 at 21:00; Stop 08/20/24 at 10:38; Status DC Sodium Chloride 1 spray Q6H PRN NS Last administered on 08/18/24at 04:11; Start 08/17/24 at 22:00; Stop 09/16/24 at 21:59 Magnesium Sulfate 50 ml @ As Directed STK-MED ONCE IV Last administered on 08/19/24at 09:50; Start 08/19/24 at 09:32; Stop 08/19/24 at 09:33; Status DC Acetaminophen 650 mg Q6H PRN PO Last administered on 08/20/24at 12:13; Start 08/20/24 at 11:00; Stop 09/19/24 at 10:59 GUSTAVO PRUITT MD Aug 20, 2024 14:58
[2024-08-21] VITALS (9 sets, daily range): BP systolic 99–133; BP diastolic 45–82; PULSE 71–116; RESP 18–19; TEMP 97.7–98.9; O2SAT 96
[2024-08-21] MEDS: MELATONIN 5 MG TABLET PO ONE ×2 (00:06)
[2024-08-21 04:07] LABS: CREATININE 3.6 mg/dL (0.5-1.3)
[2024-08-21] MEDS: ondanSETRON 4MG TABLET PO PRN (09:25)
[2024-08-21] MEDS ORDERED: BUME1TAB6 PO (11:30)
[2024-08-21] MEDS ORDERED: TAMS-1 PO (11:30)
--- NOTE | 2024-08-21 11:30 | NUR ---
Dr Lam notified pt wants to go home new orders given keep pt on doputamine drip at 3 mcg decrease bumex 1mg to daily recheck labs in am
--- NOTE | 2024-08-21 11:31 | DS ---
Discharge Summary Hospital Course Summary: This is a 64-year-old male who is well known to [facility] for fluid overload chronic CHF with EF of 20%. Chief complaint of anasarca to lower extremity scrotal edema and pain to scrotal. Patient has a significant social determinants noncompliance with treatment in the past. On last admission patient had to be started on small dose of dobutamine per his primary wastewater plant civil engineer's On diuresis and failed outpatient diuretic therapy. He has known history of multivessel coronary disease, currently managed medically because patient refused bypass surgery because he does not want to be on anticoagulation in the perioperative. The patient was on Dobutamine drip: nep hrologist was consulted due to worsening of kidney: DR Hudson 3.5 is his baseline. The patient was on Dubutamine for 4 days will follow up Dr Coyle 1-2 wks instructed on Fluid restriction, compliance with home medications. The patient is clinically stable for discharged. . Procedure(s): REASON: swelling/pain, bilateral ORDERING PHYSICIAN: MICHELLE GARVEY NP PROCEDURE: SCROTUM - US SCROTUM & CONTENTS US SCROTUM & CONTENTS HISTORY: Swelling COMPARISON: None TECHNIQUE: Duplex scrotal ultrasound study was performed. FINDINGS: The right testes measures 2.9 x 2.2 x 2.7 cm. The left testes measures 3 x 2.2 x 2.2 cm. No evidence of intratesticular mass or abnormal calcification is seen. Decreased flow is demonstrated in the testes and epididymides bilaterally. There are bilateral moderate hydrocele. There is right epididymal head cyst measuring 2.4 x 2.9 cm. Severe scrotal edema is seen. Scrotal wall thickening is seen with sclerotic edema with right measuring 13 mm in thickness and left measuring 20 mm in thickness IMPRESSION: 1. No evidence of intratesticular mass is seen. 2. Decreased flow is demonstrated of both testes and epididymides. There are bilateral moderate hydrocele. Scrotal edema is seen. Assessment/Plan: Discharged dx/ JOAQUÍN on Chronic renal failure POA Cardiac renal syndrome Anasarca wheeping to lower extPOA improved Scrotum swelling with bilateral moderate hydrocele. POA resolved Elevated troponin, most likely PR Type II triggered by fluid overload EF < 20% POA Uncontrolled Diabetes mellitius type2, POA acute on chronic CHF with LVEF 20% stage III diastolic dysfunction, POA Right lower extremity wound weeping POA Hypertension History of stroke] Recent bilateral vitreous hemorrhage POA Diabetic retinopathy and neuropathy POA Noncompliance with medication Bumex POA Noncompressible thrombus is seen in the right popliteal vein consistent with deep venous thrombosis. not a candidate for anticoagulation therapy POA s/p post IVC filter placement secondary to DVT and contraindication to anticoagulation. left plantar foot Ulcer; not poa PLAN: ADMISSION DATE: 08/14/24 DISCHARGE DATE: 08/21/24 DISPOSITION: home CONDITION: Stable FACILITY MAINTENANCE MECHANIC(S): wastewater plant civil engineer DR Regan. cash processing specialist: DR Gregorio Hernandez entry level electrical engineer FOLLOW UP APPOINTMENT(S): PROCEDURES: venous doppler, IMAGING (S) report attached to summary : MICROBIOLOGY: report attached to summary; ACTIVITY: ab shea HOME MEDICATIONS reviewed CHANGES ON HOME MEDICATIONS Bumetanide 1 Mg Tablet changed to daily Tamsulosin HCl (Flomax) 0.4 Mg Cap.er.24h NEW MEDICATIONS Tamsulosin HCl (Flomax) 0.4 Mg Cap.er.24h TEACHING: compliance with medication; High Risk for readmission: He has known history of multivessel coronary disease, currently managed medically because patient refused bypass surgery because he does not want to be on anticoagulation in the perioperative Emergency instructions: The patient was instructed to present to the nearest Emergency Department or call 911 should their symptoms return or worsen. Home Medications: Reported Medications Latanoprost (Latanoprost) 0.005 % Drops, 1 DROP OP HS, ML 0 Refills 08/15/24 Losartan Potassium (Losartan Potassium) 25 Mg Tablet, 1 TAB PO DAILY for 30 Days, #30 TAB 0 Refills 08/15/24 Meloxicam (Meloxicam) 15 Mg Tablet, 1 TAB PO DAILY for 30 Days, #30 TAB 0 Refills 08/15/24 Levothyroxine Sodium (Levothyroxine) 50 Mcg Capsule, 1 CAP PO DAILY for 30 Days, #30 CAP 0 Refills 08/15/24 Famotidine (Famotidine) 20 Mg Tablet, 1 TAB PO DAILY for 30 Days, #60 TAB 0 Refills 08/15/24 Nitroglycerin (Nitroglycerin) 0.4 Mg Tab.subl, 1 TAB SL AD for chest pain, #25 TAB 0 Refills 1st sign of attack; may repeat every 5 mins; if pain persists after 3 in 15 min, medical attention is recommended 08/15/24 Bumetanide (Bumetanide) 1 Mg Tablet, 1 TAB PO BID for 30 Days, #30 TAB 0 Refills 08/15/24 Sulfamethoxazole/Trimethoprim (Bactrim Ds Tablet) 800 Mg-160 Mg Tablet, 1 TAB PO BID for 5 Days, #20 TAB 0 Refills 08/15/24 Atorvastatin Calcium (Atorvastatin Calcium) 20 Mg Tablet, 1 TAB PO DAILY for 30 Days, #30 TAB 0 Refills 08/15/24 Aspirin (ASPIRIN 81MG CHEW TAB) 81 Mg Tab.chew, 81 MG PO DAILY, TAB.CHEW 08/15/24 Benzonatate (Tessalon Perles) 100 Mg Cap, 100 MG PO TIDP, CAP 08/15/24 Metoprolol Succinate (Metoprolol Succinate) 50 Mg Tab.er.24h, 1 TAB PO DAILY for 30 Days, #30 TAB 0 Refills 08/15/24 Hydroxyzine Pamoate (Hydroxyzine Pamoate) 25 Mg Capsule, 2 CAP PO BID for anxiety for 30 Days, #60 CAP 0 Refills 08/15/24 Discontinued Reported Medications Levothyroxine Sodium (Levothyroxine) 50 Mcg Capsule, 1 CAP PO DAILY for 30 Days, #30 CAP 0 Refills 07/04/24 Metoprolol Succinate (Metoprolol Succinate) 50 Mg Tab.er.24h, 1 TAB PO DAILY for 30 Days, #30 TAB 0 Refills 07/04/24 Meloxicam (Meloxicam) 15 Mg Tablet, 15 MG PO DAILY, TAB 07/04/24 Losartan Potassium (Losartan Potassium) 25 Mg Tablet, 1 TAB PO DAILY for 30 Days, #30 TAB 0 Refills 07/04/24 Famotidine (Famotidine) 20 Mg Tablet, 20 MG PO DAILY, TAB 07/04/24 Atorvastatin Calcium (Atorvastatin Calcium) 20 Mg Tablet, 20 MG PO HS, TAB 07/04/24 Aspirin (ASPIRIN 81 MG ECTAB) 81 Mg Ectab, 81 MG PO DAILY, TAB.EC 07/04/24 Discontinued Scripts Nitroglycerin (Nitroglycerin) 0.4 Mg Tab.subl, 1 TAB SL AD for chest pain, #25 TAB 1 Refill 1st sign of attack; may repeat every 5 mins; if pain persists after 3 in 15 min, medical attention is recommended Prov:GARRY GUERRA MD 07/14/24 Latanoprost (Xalatan) 0.005 % Drops, 0 DROP OU HS for 30 Days, #1 DROP 1 Refill as directed Prov:GARRY GUERRA MD 07/14/24 New Medications: Bumetanide (Bumetanide) 1 Mg Tablet 1 MG PO DAILY for 30 Days, #30 TAB Tamsulosin HCl (Flomax) 0.4 Mg Cap.er.24h 0.4 MG PO DAILY for 30 Days, #[address] Continued Medications: Aspirin (Aspirin 81MG Chew Tab) 81 Mg Tab.chew 81 MG PO DAILY, TAB.CHEW Atorvastatin Calcium (Atorvastatin Calcium) 20 Mg Tablet 1 TAB PO DAILY for 30 Days, #30 TAB 0 Refills Benzonatate (Tessalon Perles) 100 Mg Cap 100 MG PO TIDP, CAP Famotidine (Famotidine) 20 Mg Tablet 1 TAB PO DAILY for 30 Days, #60 TAB 0 Refills Hydroxyzine Pamoate (Hydroxyzine Pamoate) 25 Mg Capsule 2 CAP PO BID for anxiety for 30 Days, #60 CAP 0 Refills Latanoprost (Latanoprost) 0.005 % Drops 1 DROP OP HS, ML 0 Refills Levothyroxine Sodium (Levothyroxine) 50 Mcg Capsule 1 CAP PO DAILY for 30 Days, #30 CAP 0 Refills Losartan Potassium (Losartan Potassium) 25 Mg Tablet 1 TAB PO DAILY for 30 Days, #30 TAB 0 Refills Metoprolol Succinate (Metoprolol Succinate) 50 Mg Tab.er.24h 1 TAB PO DAILY for 30 Days, #30 TAB 0 Refills Nitroglycerin (Nitroglycerin) 0.4 Mg Tab.subl 1 TAB SL AD for chest pain, #25 TAB 0 Refills 1st sign of attack; may repeat every 5 mins; if pain persists after 3 in 15 min, medical attention is recommended Discontinued Medications: Bumetanide (Bumetanide) 1 Mg Tablet 1 TAB PO BID for 30 Days, #30 TAB 0 Refills Meloxicam (Meloxicam) 15 Mg Tablet 1 TAB PO DAILY for 30 Days, #30 TAB 0 Refills Sulfamethoxazole/Trimethoprim (Bactrim Ds Tablet) 800 Mg-160 Mg Tablet 1 TAB PO BID for 5 Days, #20 TAB 0 Refills Time spent arranging discharge: 31-60 minutes ATTESTATION BY PHYSICIAN I have seen and examined the patient. I reviewed the documentation, medical decision making, and treatment plan as noted by the mid-level provider above. I agree with the findings and plan of care. GARRY GUERRA MD, ELIZABETH NP Aug 21, 2024 11:31
--- NOTE | 2024-08-21 11:49 | PN ---
[facility] PROGRESS NOTE Date of Service: Aug 21, 2024 Time of Service: 11:43 SUBJECTIVE: [ ] This is a 64-year-old male who is well known to [facility] for fluid overload chronic CHF with EF of 20%. Chief complaint of anasarca to lower extremity scrotal edema and pain to scrotal. Patient has a significant social determinants noncompliance with treatment in the past. On last admission patient had to be started on small dose of dobutamine per his primary eeg tech's which has been already consulted we will follow his recommendation patient received a dose of Bumex1 mg IV now. Patient on room air. Denied chest pain. 08/16/24 patient is seen and examined with attending. Reviewed chart and discussed plan of care. Review note eeg tech's in detail had a discussion with patient of troponin elevated and progressive muscle loss patient understands risks but still does not want to proceed with surgery. Patient was started on dobutamine to help with diuresis and renal function. Patient denies chest pain events overnight. 08/17/24 patient is seen and examined reviewed chart discussed case with attending. Patient continues on dobutamine drip anasarca improved scrotal swelling as well. Patient blood pressure in the soft side patient denied chest pain or shortness for breath. 08/18/24 patient seen and examied with Attending : reviewed chart discussed case. Overall doing well, edema in his lower extremities improve significantly Remains on diuresis with Bumex b.i.d PO and remains on dobutamine drip at [address] Regan. creatinine today is 3.0 from 3.5. Winder Tender is following. Primary nurse report no chest pain event overnight. 08/19/24 patient is fully awake alert oriented x3 denies palpation dizziness, chest pain. continue on Dobutamine drip HR tachycardia. bilateral edema to lower ext improving. scrotal swelling improved significantly. The patient requesting medical records. will have social services director talked with patient. 08/20/24 The patient appears comfortable edema lower ext improving, JOAQUÍN: creatinine increased Dobutamine was decreased yesterday given to renal function and tachycardia per eeg tech: cont with Tachycardiac HR 112, CMP pending results no chest pain event overnight. 08/21/24 The patient was seen ealier with DR Holly; reviewed chart and eeg tech note in detail:changed Bumex 1 mg daily cont with Dubutamine at 3mcg and want to monitor his renal function: DR Hudson bindery production manager following: no acute need for any PLAYROOM ATTENDANT to continue with Diuretics. The patient complaints of not sleeping well, Melatonin was given but reports it did nothing for him. REVIEW OF SYSTEMS CONSTITUTIONAL: Denies fevers, chills, or night sweats. No unintentional weight loss reported. NEUROLOGICAL: Denies headache, amaurosis fugax, motor weakness, sensory deficit, vertigo/spinning sensation, gait abnormalities, or tremors. ENT: No hearing loss, otalgia, otorrhea, rhinitis, rhinorrhea, hoarseness, or sore throat. CARDIOVASCULAR: Denies any exertional angina, dyspnea on exertion, orthopnea, paroxysmal nocturnal dyspnea, palpitations, life-threatening arrhythmias, claudication. PULMONARY: Denies any shortness of breath, cough, phlegm/sputum, hemoptysis, pleuritic chest pain. SLEEP: Denies morning headaches, daytime somnolence or napping. Denies difficulty falling asleep, staying asleep, waking from sleep. Denies knowledge of snoring. GASTROINTESTINAL: Denies any type of dysphagia to either liquids or solids. Denies nausea, vomiting, pyrosis, early satiety, abdominal pain, diarrhea, constipation, or changes in stool consistency or caliber. Denies coffee-ground emesis, hematemesis, hematochezia, or melanotic stools. GENITOURINARY: Denies frequency, urgency, nocturia, hematuria or incontinence (Storage/Irritative symptoms.) Low urinary stream, straining to void, urinary intermittency or hesitancy, splitting of the voiding stream, terminal dribbling. ENDOCRINOLOGIC: Denies polyuria, polydipsia, polyphagia or heat/cold intolerances. HEMATOLOGIC: Denies thrombophilia/previous clots, or coagulopathy/bleeding disorders. ONCOLOGIC: Denies personal history of malignancy. DERMATOLOGIC: Denies rashes or pruritus. PSYCHIATRIC: Denies any suicidal or homicidal ideation. Denies hallucinations. PHYSICAL EXAM GENERAL APPEARANCE: The patient is awake, alert, and oriented, in no acute cardiopulmonary distress. NEUROLOGICAL: Cranial nerves II-XII grossly intact. Motor is 5/5 in bilateral upper and lower extremities proximal to distal. No sensory deficits. HEENT: Face is symmetric. Pupils are equal and reactive. Extraocular movements are intact. NECK: Supple. No JVD. No thyromegaly. No submental, submandibular, pre- /postauricular, occipital or supraclavicular lymphadenopathy. CHEST: Normal chest expansion. No Telemetry. LUNGS: Absence of any rales, rhonchi or any wheezing. CARDIOVASCULAR: Regular. S1 and S2 normal. No appreciable rubs, murmurs or gallops. ABDOMEN: Soft, nontender, and nondistended. There is no rebound, voluntary guarding, or rigidity. : Deferred. No Guillermo. EXTREMITIES: Non-edematous and not cyanotic. No clubbing. Good capillary refill. SKIN: No skin breakdown. Vital Signs (last 8hr) Date Time Temp Pulse Resp B/P (MAP) Pulse Ox O2 Delivery O2 Flow Rate FiO2 08/21/24 08:35 96 Room Air* 0 21 08/21/24 07:03 97.9 116 18 99/45 93 Room Air 08/21/24 04:24 97.9 71 18 128/69 94 Room Air LABS: Laboratory: Test 08/21/24 11:38 08/21/24 03:08 08/20/24 10:36 Range/Units Whole Blood Glucose 179 H 70-110 MG/DL Sodium Level 136 136-145 mmol/L Potassium Level 4.0 3.5-5.1 mmol/L Chloride Level 99 L 101-111 mmol/L Carbon Dioxide Level 31 21-32 mmol/L Blood Urea Nitrogen 63 H 7-18 mg/dL Creatinine 3.6 H 0.5-1.3 mg/dL Glomerular Filtration Rate Calc 18 >90 mL/min Random Glucose 140 H 70-105 mg/dL Total Calcium 8.9 8.5-10.1 mg/dL Magnesium Level 2.20 1.80-2.40 mg/dL Total Bilirubin 1.8 H 0.2-1.0 mg/dL Aspartate Amino Transf (AST/SGOT) 56 H 10-37 U/L Alanine Aminotransferase (ALT/SGPT) 34 12-78 U/L Alkaline Phosphatase 302 H 50-136 U/L Total Protein 7.6 6.0-8.3 g/dL Albumin 3.1 L 3.5-5.0 g/dL Current Medications Medications (Trade) Dose Ordered Sig/Anjelica Route PRN Reason Start Time Stop Time Status Last Admin Dose Admin Acetaminophen (TYLenol 325MG TAB) 650 mg Q6H PRN PO MILD PAIN (1-3) 08/20/24 11:00 09/19/24 10:59 08/21/24 01:18 650 MG Acetaminophen (TYLenol 325MG TAB) 650 mg Q6H PRN PO TEMPERATURE GREATER THAN 101.5 08/14/24 19:30 09/13/24 19:29 Albumin Human 50 ml @ 0 mls/hr Q8H5 IV 08/17/24 21:00 08/20/24 10:38 DC 08/20/24 05:19 25 MLS/HR Aspirin (Aspirin 81mg Chew Tab) 324 mg ONCE STAT PO 08/14/24 18:36 08/14/24 18:37 DC 08/14/24 18:52 324 MG Aspirin (Aspirin 81mg Ec Tab) 81 mg DAILY PO 08/15/24 09:00 09/14/24 08:59 08/21/24 09:53 81 MG Atorvastatin Calcium (LIPItor 20MG) 20 mg DAILY PO 08/16/24 09:00 08/16/24 10:43 DC 08/16/24 08:36 20 MG Atorvastatin Calcium (LIPItor 20MG) 20 mg HS PO 08/17/24 21:00 09/15/24 08:59 08/20/24 21:00 20 MG Bumetanide (Bumex 1mg Tab) 1 mg BID PO 08/15/24 21:00 08/21/24 11:08 DC 08/21/24 09:53 1 MG Bumetanide (Bumex 1mg Tab) 1 mg DAILY PO 08/22/24 09:00 09/21/24 08:59 Dobutamine HCl/ Dextrose 250 ml @ 0 mls/hr PROTOCOL IV 08/16/24 11:00 09/15/24 10:59 08/21/24 01:27 0 MLS/HR Docusate Sodium (COLace 100MG CAP) 100 mg BID PO 08/15/24 10:00 09/14/24 09:59 08/21/24 09:53 100 MG Furosemide (LASix 40MG VIAL) 40 mg ONCE STAT IV 08/14/24 18:37 08/14/24 18:38 DC 08/14/24 18:52 40 MG Hydralazine HCl (APRESOLine 20MG INJ) 10 mg Q6H PRN IV For:SBP above 160;DBP above 90 08/14/24 19:30 09/13/24 19:29 Hydromorphone HCl (DiLAUDid 0.5MG INJ) 0.5 mg Q6H PRN IVP SEVERE PAIN (7-10) 08/15/24 10:00 08/20/24 09:59 DC 08/18/24 22:13 0.5 MG Hydroxyzine HCl (ATArax 25MG TAB) 50 mg BID PO 08/15/24 21:00 09/14/24 20:59 08/21/24 09:53 50 MG Insulin Human Regular (humuLIN R 100 UNIT/ML 3ML) INSULIN SLIDING SCAL... ACHS SQ 08/14/24 21:00 09/13/24 20:59 08/20/24 12:38 3 UNIT Iron Sucrose (VenoFER) 200 mg DAILY22 IV 08/16/24 22:00 08/19/24 07:38 DC 08/18/24 22:37 200 MG Iron Sucrose 200 mg/Sodium Chloride 250 ml @ 1,000 mls/hr DAILY22 IVP 08/16/24 22:00 08/17/24 06:31 DC 08/16/24 22:19 1,000 MLS/HR Latanoprost (Xalatan) 1 GGT OP HS ANJELICA HS OP 08/15/24 21:00 09/14/24 20:59 08/20/24 21:00 1 DROP Levothyroxine Sodium (SYNTHroid 50MCG TAB) 50 mcg DAILY PO 08/16/24 09:00 08/21/24 11:09 DC 08/21/24 09:54 50 MCG Levothyroxine Sodium (SYNTHroid 50MCG TAB) 50 mcg SYN PO 08/22/24 06:30 09/15/24 08:59 Losartan Potassium (CozAAR 25MG TAB) 25 mg DAILY PO 08/16/24 09:00 08/16/24 19:54 DC 08/16/24 08:35 25 MG Metoprolol Succinate (TopROL XL) 50 mg DAILY PO 08/16/24 09:00 08/16/24 19:54 DC 08/16/24 08:36 50 MG Morphine Sulfate (morPHINE 2MG SYG) 2 mg Q4H PRN IV SEVERE PAIN (7-10) 08/16/24 11:00 08/20/24 10:02 DC 08/19/24 04:11 2 MG Morphine Sulfate (morPHINE 4MG SYG) 2 mg Q4H PRN IV SEVERE PAIN (7-10) 08/14/24 19:30 08/16/24 10:42 DC 08/15/24 14:04 2 MG Nitroglycerin (Nitrostat) 0.4 mg AD PRN SL CHEST PAIN 08/14/24 19:30 09/13/24 19:29 Ondansetron HCl (zoFRAN 4MG TABLET) 4 mg Q6H PRN PO NAUSEA/VOMITING 08/21/24 09:30 09/20/24 09:29 08/21/24 09:25 4 MG Ondansetron HCl (zoFRAN 4MG INJ) 4 mg Q6H PRN IV NAUSEA/VOMITING 08/14/24 19:30 08/21/24 09:08 DC 08/20/24 09:21 4 MG Pharmacy Profile Note (Lace Assessment) 1 each AD MISC 08/15/24 15:00 08/19/24 07:38 DC Sodium Chloride ([place]) 1 spray Q6H PRN NS DRYNESS 08/17/24 22:00 09/16/24 21:59 08/18/24 04:11 1 SPRAY Tamsulosin HCl (FloMAX) 0.4 mg DAILY PO 08/15/24 10:00 09/14/24 09:59 08/21/24 09:53 0.4 MG Vitamin B Complex/ Vit C/Folic Acid (Nephrovite Tablet) 1 cap DAILY PO 08/16/24 09:00 09/15/24 08:59 08/21/24 09:54 1 CAP DIAGNOSTICS / RADIOLOGY: [ ] Discharged dx/ JOAQUÍN on Chronic renal failure POA Cardiac renal syndrome Anasarca wheeping to lower extPOA improved Scrotum swelling with bilateral moderate hydrocele. POA resolved Elevated troponin, most likely RI Type II triggered by fluid overload EF < 20% POA Uncontrolled Diabetes mellitius type2, POA acute on chronic CHF with LVEF 20% stage III diastolic dysfunction, POA Right lower extremity wound weeping POA Hypertension History of stroke] Recent bilateral vitreous hemorrhage POA Diabetic retinopathy and neuropathy POA Noncompliance with medication Bumex POA Noncompressible thrombus is seen in the right popliteal vein consistent with deep venous thrombosis. not a candidate for anticoagulation therapy POA s/p post IVC filter placement secondary to DVT and contraindication to anticoagulation. left plantar foot Ulcer; not poa insomnia not POA PLAN: admit to PCCU with Tele consultants: DR Regan is following decreased Dubatamine to 3mcg, creatinine tren ding up: CMP now will follow results. changed Bumex 1 mg PO BID to daily continue with diuresis with Dobutamine: bilateral edema lower ext improving and scrotal swelling improving. cont with local wound care to venous open wounds as directed by wound care nurse fluid restriction : 1.5 liter daily strict I/O daily weight Scrotum swelling with bilateral moderate hydrocele. resolved bindery production manager following Avoid NSAIDS strict i/O Benadryl 25 mg po HS x1 DVT/GI:ppx patient has IVC filter not a candidate of blood thinner. cont with PUD ppx all questions answered further orders as per response to IV diuretics case discussed to attending Dr Holly Cd This document was generated in part using voice recognition software, occasional wrong word or sound alike substitutions may have occurred due to the inherent limitations of voice recognition software. Read the chart carefully and recognize using context, where the substitutions have occurred. Although every effort was made to edit the content, milking machine technician and typing errors may occur ATTESTATION BY PHYSICIAN I have seen and examined the patient. I reviewed the documentation, medical decision making, and treatment plan as noted by the mid-level provider above. I agree with the findings and plan of care. GARRY HOLLY MD, ELIZABETH NP Aug 21, 2024 11:49
--- NOTE | 2024-08-21 13:50 | PN ---
NEPHROLOGY PROGRESS NOTE Date/Time Patient Seen: Aug 21, 2024 SUBJECTIVE: This is a 64 year old male with a past medical history of Diabetes mellitus type2, hypertension, CKD, history of CVA, and CHF He presented to the emergency department with a chief complaint of bilateral lower extremities and testicles. She was admitted with a diagnosis of JOAQUÍN on CKD. We have been consulted for renal failure Renal function remains elevated Electrolytes are stable. Hemoglobin is stable He has received IV iron. He continues on Bumex1 mg p.o. daily He continues on dobutamine. He was seen in the telemetry floor, in no acute distress No family at the bedside Progress remains guarded REVIEW OF SYSTEMS: GENERAL:Positive for lower extremity edema NEUROLOGIC: Negative for any blurry vision, blind spots, double vision, facial asymmetry, dysphagia, dysarthria, hemiparesis, hemisensory deficits, vertigo, ataxia. HEENT: Negative for any head trauma, neck trauma, neck stiffness, photophobia, phonophobia, sinusitis, rhinitis. CARDIAC: Negative for any chest pain, dyspnea on exertion, paroxysmal nocturnal dyspnea, peripheral edema. PULMONARY: Negative for any shortness of breath, wheezing, COPD, or TB exposure. GASTROINTESTINAL: Negative for any abdominal pain, nausea, vomiting, bright red blood per rectum, melena. GENITOURINARY: Negative for any dysuria, hematuria, incontinence. INTEGUMENTARY: Negative for any rashes, cuts, insect bites. RHEUMATOLOGIC: Negative for any joint pains, photosensitive rashes, history of vasculitis or kidney problems. HEMATOLOGIC: Negative for any abnormal bruising, frequent infections or bleeding. PHYSICAL EXAM: GENERAL: Alert and oriented x 3. No acute distress. Well-nourished. EYES: EOMI. Anicteric. HENT: Moist mucous membranes. No scleral icterus. No cervical lymphadenopathy. LUNGS: Clear to auscultation bilaterally. No accessory muscle use. CARDIOVASCULAR: Regular rate and rhythm. No murmur. No JVD. ABDOMEN: Soft, non-tender and non-distended. No palpable masses. EXTREMITIES: 2+ edema. Non-tender. SKIN: No rashes or lesions. Warm. NEUROLOGIC: No focal neurological deficits. CN II-XII grossly intact, but not individually tested. PSYCHIATRIC: Cooperative. Appropriate mood and affect. LABORATORY: [ ] Chemistry Labs: Test 12/16/24 12:21 08/21/24 03:08 08/20/24 10:36 Range/Units Whole Blood Glucose 171 H 70-110 MG/DL Sodium Level 136 136-145 mmol/L Potassium Level 4.0 3.5-5.1 mmol/L Chloride Level 99 L 101-111 mmol/L Carbon Dioxide Level 31 21-32 mmol/L Blood Urea Nitrogen 63 H 7-18 mg/dL Creatinine 3.6 H 0.5-1.3 mg/dL Glomerular Filtration Rate Calc 18 >90 mL/min Random Glucose 140 H 70-105 mg/dL Total Calcium 8.9 8.5-10.1 mg/dL Magnesium Level 2.20 1.80-2.40 mg/dL Total Bilirubin 1.8 H 0.2-1.0 mg/dL Aspartate Amino Transf (AST/SGOT) 56 H 10-37 U/L Alanine Aminotransferase (ALT/SGPT) 34 12-78 U/L Alkaline Phosphatase 302 H 50-136 U/L Total Protein 7.6 6.0-8.3 g/dL Albumin 3.1 L 3.5-5.0 g/dL DIAGNOSTICS / RADIOLOGY: REASON: swelling/pain, bilateral ORDERING PHYSICIAN: [employer] PROCEDURE: SCROTUM - US SCROTUM & CONTENTS US SCROTUM & CONTENTS HISTORY: Swelling COMPARISON: None TECHNIQUE: Duplex scrotal ultrasound study was performed. FINDINGS: The right testes measures 2.9 x 2.2 x 2.7 cm. The left testes measures 3 x 2.2 x 2.2 cm. No evidence of intratesticular mass or abnormal calcification is seen. Decreased flow is demonstrated in the testes and epididymides bilaterally. There are bilateral moderate hydrocele. There is right epididymal head cyst measuring 2.4 x 2.9 cm. Severe scrotal edema is seen. Scrotal wall thickening is seen with sclerotic edema with right measuring 13 mm in thickness and left measuring 20 mm in thickness IMPRESSION: 1. No evidence of intratesticular mass is seen. 2. Decreased flow is demonstrated of both testes and epididymides. There are bilateral moderate hydrocele. Scrotal edema is seen. DICTATED BY: MIKAYLA CORRIGAN REASON: SOB ORDERING PHYSICIAN: MICHEL[employer] PROCEDURE: CXR1VW - CHEST 1VW CHEST 1VW HISTORY: Shortness of breath COMPARISON: 07/26/2024 FINDINGS: A frontal projection of the chest was obtained. Mild bilateral pulmonary infiltrates are seen may be related to mild pulmonary vascular congestion with possible superimposed pneumonitis. The heart is borderline enlarged. Degenerative changes are seen. No evidence of aortic calcification is seen. IMPRESSION: 1. Mild bilateral pulmonary infiltrates are seen may be related to mild pulmonary vascular congestion with possible superimposed pneumonitis. DICTATED BY: BETH CORRIGAN MD DATE: 08/14/241831 ASSESSMENT: Acute on Chronic renal failure Cardiorenal syndrome Anasarca Elevated troponin Uncontrolled Diabetes mellitus type2 Acute on chronic CHF with LVEF 20% stage III diastolic dysfunction Hypertension History of CVA Diabetic retinopathy and neuropathy S/p post IVC filter placement secondary to DVT and contraindication to anticoagulation. PLAN: Labs, diagnostic, radiologic exams reviewed and interpreted by myself and supervising physician. We have reviewed external records in detail Continue with diuretics He was counseled on the importance of 1.5 L fluid restriction Require close monitoring of renal function and electrolytes Order CBC, CMP, and electrolytes in am Continue with antibiotics Renal diabetic diet BiPAP as necessary, for respiratory distress Monitor blood pressure adjust medication doses as needed Avoid hypotensive episodes May use Dilaudid 0.5 mg IV every 6 hours as needed for severe pain Monitor blood sugars Strict intake, output, and daily weight should be monitored Please renally adjust medications Avoid nephrotoxic and nonsteroidal drugs Avoid contrast if possible Will continue to monitor renal function, anemia, electrolytes Treatment plan discussed with patient Questions were answered We have discussed with the other team physicians in detail about the care plan We will continue to monitor the patient closely ATTESTATION BY PHYSICIAN I have seen and examined the patient. I reviewed the documentation, medical decision making, and treatment plan as noted by the mid-level provider above. I agree with the findings and plan of care. DENZEL ACKERMAN MD, [facility] Aug 21, 2024 13:50
--- NOTE | 2024-08-21 19:02 | PN ---
Reason for consult: CHF HPI/story at presentation: This is a pleasant gentleman with past medical history as per present with complaints of shortness of breath, lower extremity meniscal edema. He has known history of multivessel coronary disease, currently managed medically because patient refused bypass surgery because he does not want to be on anticoagulation in the perioperative. Patient also had elevated troponins during hospitalization (anticoagulation for this as well because of issues with retina and is worried about losing more vision. No active issues with chest pain at this time. On diuresis and failed outpatient diuretic therapy. Subjective: 08/15/2024 no complaints 08/16/2024 no complaints 08/17/2024 feeling better 08/19/2024 feeling better 08/20/2024 feeling better 08/21/2024 no complaints, feeling better Past medical history: See below Allergies, Meds See chart Review of systems Review of Systems Constitutional: Negative for chills and fever. HENT: Negative for ear discharge and ear pain. Eyes: Negative for photophobia and discharge. Respiratory: Negative for cough, sputum production and stridor. Cardiovascular: Negative for chest pain and palpitations. Gastrointestinal: Negative for diarrhea and vomiting. Genitourinary: Negative for frequency. Musculoskeletal: Negative for myalgias. Skin: Negative for rash. Neurological: Negative for focal weakness and seizures. Endo/Heme/Allergies: Negative for polydipsia. Psychiatric/Behavioral: Negative for hallucinations. Vitals see chart PHYSICAL EXAMINATION GENERAL: The patient is alert and oriented*3 HEENT: Nonicteric sclerae, non traumatic HEART: Regular rate and rhythm with no murmurs LUNGS: Clear to auscultation bilaterally ABDOMEN: No acute issues, non tender GENITAL, RECTAL: deferred SKIN: No rash NEUROLOGIC: NFND EXTREMITIES:EDEMA 07/2024 ASSESSMENT EXACERBATION OF CHF, CARDIOMYOPATHY Noncompliant with diuretics at home History of ischemic cardiomyopathy MVCAD on cath 07/2024 Stress test with infarction pattern, 02/2024 Ejection fraction of 15 to 20%, 06/2024 On diuresis with Bumex, 06/2024 DVT diagnosed 07/2024 s/p IVC filter NSTEMI Initial troponin of 1600, trending down HEMATURIA Moderate hematuria, 06/2024 CHRONIC KIDNEY DISEASE Stage III 3.4at presentation Creatinine at discharge from hospital, 06/2024 was 2.2 HYPERTENSION HYPERLIPIDEMIA DIABETES, TOBACCO USE CORE MEASURES Not on guideline directed medical therapy for cardiomyopathy given renal dysfunction OTHER MEDICAL PROBLEMS Anxiety disorder Diabetic neuropathy PLAN 08/15/2024 Currently, has significant issues with swelling in the scrotum, lower extremity edema. Still not interested in anticoagulation at this time, not interested in bypass at this time. Troponins are elevated and progressive muscle loss with significant troponinemia discussed and patient understands risk but still does not want to proceed with surgery at this time. Renal function was elevated at presentation at 3.3. Testicular ultrasound with no mass but did show evidence of bilateral hydroceles. Start dobutamine to help with diuresis and renal function 08/16/2024 Was started on dobutamine this morning, continue watch renal function, output. Had a spell of hypotension today and therefore, had to be moved to the PCU for further evaluation management. Family is discussing bypass and long-term care with rest of family - but no immediate plans. Ultrasound with evidence of hydrocele. Currently on dobutamine at 5 metoprolol 50 losartan 25 Bumex 1 twice daily will hold beta-demario and losartan given hypotension and dobutamine use. 08/17/2024 Overall doing well, edema in his lower extremities test with squamous getting better. Remains on diuresis with Bumex b.i.d., remains on dobutamine drip at 5. We will continue. Renal function is worse today at 3.5 but given ongoing issues with edema would continue aggressive diuresis. Hemodynamically, doing well. Continue to watch renal function, nephrology is on board, appreciate. Long-term prognosis without the bypass is poor. 08/19/2024 Doing well, still continuing diuresis, dose of dobutamine was changed to 3 mcg because of issues with tachycardia and dizziness. Continue watch renal function, urine output with this. Remains on diuretics. 08/20/2024 Doing well, swelling to patient is about 80% better. Creatinine is slightly elevated still at 3.5, baseline of close to 1.9 back in July 2024. May consider tapering diuresis once regimen is complete, patient was noncompliant with diuretics at home, on statins Bumex aspirin at this time. Has been having issues with hallucinations defer managemen to primary team, likely home in the next day or two. Continue dobutamine at 3 08/21/2024 significantly worse renal function compared to baseline, creat was 1.9 last month and getting worse. Underlying cardiorenal syndrome. Diuresis ahs been almost completed, swelling is better, will taper bumex to help with renal function. Will need to make sure renal function is improving prior to discharge ATTESTATION I was involved substantially in the care of this patient Number and complexity of problems addressed 1 illness with severe exacerbation Amount and or complexity of data Review of prior external note(s) from each unique source - Number 2+_ Ordering of each unique test - Number 0 Review of the result(s) of each unique test - Number 2+ Assessment requiring an independent historian(s) No Independent interpretation of test performed by another MD/QHCP/appropriate source (not separately reported) No Discussion of management or test interpretation with external MD/QHCP/appropriate source (not separately reported) No Risk status (cardiac, billing related) moderate Vitals/Labs Vital Signs Date Time Temp Pulse Resp B/P (MAP) Pulse Ox O2 Delivery O2 Flow Rate FiO2 08/21/24 16:00 97.7 106 19 130/66 93 Room Air 08/21/24 11:30 97 08/21/24 08:35 0 Laboratory Tests 08/21/24 03:08 Medications Current Medications Aspirin 324 mg ONCE STAT PO Last administered on 08/14/24at 18:52; Start 08/14/24 at 18:36; Stop 08/14/24 at 18:37; Status DC Furosemide 40 mg ONCE STAT IV Last administered on 08/14/24at 18:52; Start 08/14/24 at 18:37; Stop 08/14/24 at 18:38; Status DC Nitroglycerin 0.4 mg AD PRN SL; Start 08/14/24 at 19:30; Stop 09/13/24 at 19:29 Acetaminophen 650 mg Q6H PRN PO; Start 08/14/24 at 19:30; Stop 09/13/24 at 19:29 Ondansetron HCl 4 mg Q6H PRN IV Last administered on 08/20/24at 09:21; Start 08/14/24 at 19:30; Stop 08/21/24 at 09:08; Status DC Morphine Sulfate 2 mg Q4H PRN IV Last administered on 08/15/24at 14:04; Start 08/14/24 at 19:30; Stop 08/16/24 at 10:42; Status DC Hydralazine HCl 10 mg Q6H PRN IV; Start 08/14/24 at 19:30; Stop 09/13/24 at 19:29 Aspirin 81 mg DAILY PO Last administered on 08/21/24at 09:53; Start 08/15/24 at 09:00; Stop 09/14/24 at 08:59 Insulin Human Regular INSULIN SLIDING SCAL... ACHS SQ Last administered on 08/21/24at 12:17; Start 08/14/24 at 21:00; Stop 09/13/24 at 20:59 Hydromorphone HCl 0.25 mg ONCE ONCE IVP Last administered on 08/14/24at 22:53; Start 08/14/24 at 22:30; Stop 08/14/24 at 22:31; Status DC Atorvastatin Calcium 20 mg DAILY PO Last administered on 08/16/24at 08:36; Start 08/16/24 at 09:00; Stop 08/16/24 at 10:43; Status DC Latanoprost 1 GGT OP HS MARA HS OP Last administered on 08/20/24at 21:00; Start 08/15/24 at 21:00; Stop 09/14/24 at 20:59 Losartan Potassium 25 mg DAILY PO Last administered on 08/16/24at 08:35; Start 08/16/24 at 09:00; Stop 08/16/24 at 19:54; Status DC Metoprolol Succinate 50 mg DAILY PO Last administered on 08/16/24at 08:36; Start 08/16/24 at 09:00; Stop 08/16/24 at 19:54; Status DC Hydroxyzine HCl 50 mg BID PO Last administered on 08/21/24at 09:53; Start 08/15/24 at 21:00; Stop 09/14/24 at 20:59 Levothyroxine Sodium 50 mcg DAILY PO Last administered on 08/21/24at 09:54; Start 08/16/24 at 09:00; Stop 08/21/24 at 11:09; Status DC Bumetanide 1 mg ONCE ONCE IM Last administered on 08/15/24at 10:25; Start 08/15/24 at 10:00; Stop 08/15/24 at 10:01; Status DC Bumetanide 1 mg BID PO Last administered on 08/21/24at 09:53; Start 08/15/24 at 21:00; Stop 08/21/24 at 11:08; Status DC Tamsulosin HCl 0.4 mg ONCE ONCE PO; Start 08/15/24 at 10:00; Stop 08/15/24 at 09:52; Status DC Tamsulosin HCl 0.4 mg DAILY PO Last administered on 08/21/24at 09:53; Start 08/15/24 at 10:00; Stop 09/14/24 at 09:59 Docusate Sodium 100 mg BID PO Last administered on 08/21/24at 09:53; Start 08/15/24 at 10:00; Stop 09/14/24 at 09:59 Docusate Sodium 100 mg ONCE ONCE PO; Start 08/15/24 at 10:00; Stop 08/15/24 at 09:54; Status DC Hydromorphone HCl 0.5 mg Q6H PRN IVP Last administered on 08/18/24at 22:13; Start 08/15/24 at 10:00; Stop 08/20/24 at 09:59; Status DC Pharmacy Profile Note 1 each AD MISC; Start 08/15/24 at 15:00; Stop 08/19/24 at 07:38; Status DC Vitamin B Complex/ Vit C/Folic Acid 1 cap DAILY PO Last administered on 08/21/24at 09:54; Start 08/16/24 at 09:00; Stop 09/15/24 at 08:59 Dobutamine HCl/ Dextrose 250 ml @ 0 mls/hr PROTOCOL IV Last administered on 08/21/24at 01:27; Start 08/16/24 at 11:00; Stop 09/15/24 at 10:59 Morphine Sulfate 2 mg Q4H PRN IV Last administered on 08/19/24at 04:11; Start 08/16/24 at 11:00; Stop 08/20/24 at 10:02; Status DC Atorvastatin Calcium 20 mg HS PO Last administered on 08/20/24at 21:00; Start 08/17/24 at 21:00; Stop 09/15/24 at 08:59 Iron Sucrose 200 mg DAILY22 IV Last administered on 08/18/24at 22:37; Start 08/16/24 at 22:00; Stop 08/19/24 at 07:38; Status DC Iron Sucrose 200 mg/Sodium Chloride 250 ml @ 1,000 mls/hr DAILY22 IVP Last administered on 08/16/24at 22:19; Start 08/16/24 at 22:00; Stop 08/17/24 at 06:31; Status DC Albumin Human 50 ml @ 0 mls/hr Q8H5 IV Last administered on 08/20/24at 05:19; Start 08/17/24 at 21:00; Stop 08/20/24 at 10:38; Status DC Sodium Chloride 1 spray Q6H PRN NS Last administered on 08/18/24at 04:11; Start 08/17/24 at 22:00; Stop 09/16/24 at 21:59 Magnesium Sulfate 50 ml @ As Directed STK-MED ONCE IV Last administered on 08/19/24at 09:50; Start 08/19/24 at 09:32; Stop 08/19/24 at 09:33; Status DC Acetaminophen 650 mg Q6H PRN PO Last administered on 08/21/24at 01:18; Start 08/20/24 at 11:00; Stop 09/19/24 at 10:59 Melatonin 5 mg ONCE ONCE PO; Start 08/20/24 at 00:00; Stop 08/20/24 at 23:46; Status DC Melatonin 5 mg ONCE ONCE PO Last administered on 08/21/24at 00:06; Start 08/21/24 at 00:10; Stop 08/21/24 at 00:11; Status DC Ondansetron HCl 4 mg Q6H PRN PO Last administered on 08/21/24at 09:25; Start 08/21/24 at 09:30; Stop 09/20/24 at 09:29 Bumetanide 1 mg DAILY PO; Start 08/22/24 at 09:00; Stop 09/21/24 at 08:59 Levothyroxine Sodium 50 mcg SYN PO; Start 08/22/24 at 06:30; Stop 09/15/24 at 08:59 Diphenhydramine HCl 25 mg HS ONCE PO; Start 08/21/24 at 21:00; Stop 08/21/24 at 21:01 GUSTAVO PRUITT MD Aug 21, 2024 19:02
[2024-08-21] MEDS: DiphenhydrAMINE HCL 25 MG CAPSULE PO ONE (21:07)
[2024-08-22 03:54] LABS: HEMATOCRIT 33.5 % (42-54); MEAN CORPUSCULAR HEMOGLOBIN 26.8 pg (27.0-33.0); MEAN CORPUSCULAR HGB CONC 31.9 g/dL (32.0-36.0); RED BLOOD CELL COUNT(AUTO) 3.99 MIL/uL (4.50-6.20); RED CELL DISTRIBUTION WIDTH 18.8 % (11.0-15.5); WHITE BLOOD COUNT (AUTO) 6.6 K/uL (4.8-10.8)
[2024-08-22 04:08] VITALS: BP 117/66; PULSE 112; RESP 18; TEMP 98.6
[2024-08-22 04:30] LABS: ALBUMIN 2.8 g/dL (3.5-5.0); BILIRUBIN,TOTAL 1.3 mg/dL (0.2-1.0); CREATININE 3.5 mg/dL (0.5-1.3); POTASSIUM 3.5 mmol/L (3.5-5.1); TOTAL PROTEIN, SERUM 7.6 g/dL (6.0-8.3)
[2024-08-22] MEDS: levoTHYROxine 50 MCG TABLET PO SCH (06:08)
[2024-08-22 07:53] VITALS: BP 125/72; PULSE 100; RESP 20; TEMP 98.7
[2024-08-22 08:50] VITALS: O2SAT 96
[2024-08-22] MEDS: BUMETANIDE 1 MG TAB PO SCH (09:03)
--- NOTE | 2024-08-22 11:23 | DS ---
Discharge Summary Hospital Course Summary: This is a 64-year-old male who is well known to [facility] for fluid overload chronic CHF with EF of 20%. Chief complaint of anasarca to lower extremity scrotal edema and pain to scrotal. Patient has a significant social determinants noncompliance with treatment in the past. 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 He has known history of multivessel coronary disease, currently managed medically because patient refused bypass surgery because he does not want to be on anticoagulation in the perioperative. The patient was on Dobutamine drip: neph rologist was consulted due to worsening of kidney: DR Hudson 3.5 is his baseline. The patient was on Dubutamine for 4 days will follow up Dr Coyle 1-2 wks instructed on Fluid restriction, compliance with home medications. The patient is clinically stable for discharged. Procedure(s): REASON: swelling/pain, bilateral ORDERING PHYSICIAN: MICHELLE GARVEY NP PROCEDURE: SCROTUM - US SCROTUM & CONTENTS US SCROTUM & CONTENTS HISTORY: Swelling COMPARISON: None TECHNIQUE: Duplex scrotal ultrasound study was performed. FINDINGS: The right testes measures 2.9 x 2.2 x 2.7 cm. The left testes measures 3 x 2.2 x 2.2 cm. No evidence of intratesticular mass or abnormal calcification is seen. Decreased flow is demonstrated in the testes and epididymides bilaterally. There are bilateral moderate hydrocele. There is right epididymal head cyst measuring 2.4 x 2.9 cm. Severe scrotal edema is seen. Scrotal wall thickening is seen with sclerotic edema with right measuring 13 mm in thickness and left measuring 20 mm in thickness IMPRESSION: 1. No evidence of intratesticular mass is seen. 2. Decreased flow is demonstrated of both testes and epididymides. There are bilateral moderate hydrocele. Scrotal edema is seen. Assessment/Plan: Discharged dx/ JOAQUÍN on Chronic renal failure POA Cardiac renal syndrome Anasarca wheeping to lower extPOA improved Scrotum swelling with bilateral moderate hydrocele. POA resolved Elevated troponin, most likely [place] Type II triggered by fluid overload EF < 20% POA Uncontrolled Diabetes mellitius type2, POA acute on chronic CHF with LVEF 20% stage III diastolic dysfunction, POA Right lower extremity wound weeping POA Hypertension History of stroke] Recent bilateral vitreous hemorrhage POA Diabetic retinopathy and neuropathy POA Noncompliance with medication Bumex POA Noncompressible thrombus is seen in the right popliteal vein consistent with deep venous thrombosis. not a candidate for anticoagulation therapy POA s/p post IVC filter placement secondary to DVT and contraindication to anticoagulation. left plantar foot Ulcer; not poa insomnia not POA PLAN: ADMISSION DATE: 08/14/24 DISCHARGE DATE: 08/21/24 DISPOSITION: home CONDITION: Stable DIRECTOR ADULT(S): dinkey engine operator DR Regan. urban redevelopment specialist: DR Gregorio Osborne FOLLOW UP APPOINTMENT(S): PCP: 2-3 days, DR Coyle one wk for labs. PROCEDURES: venous doppler, IMAGING (S) report attached to summary : Testicular US MICROBIOLOGY: report attached to summary; none ACTIVITY: ab shea HOME MEDICATIONS reviewed CHANGES ON HOME MEDICATIONS Bumetanide 1 Mg Tablet changed to daily Tamsulosin HCl (Flomax) 0.4 Mg Cap.er.24h NEW MEDICATIONS Tamsulosin HCl (Flomax) 0.4 Mg Cap.er.24h TEACHING: compliance with medication; High Risk for readmission: He has known history of multivessel coronary disease, currently managed medically because patient refused bypass surgery because he does not want to be on anticoagulation in the perioperative Emergency instructions: The patient was instructed to present to the nearest Emergency Department or call 911 should their symptoms return or worsen. Home Medications: Reported Medications Latanoprost (Latanoprost) 0.005 % Drops, 1 DROP OP HS, ML 0 Refills 08/15/24 Losartan Potassium (Losartan Potassium) 25 Mg Tablet, 1 TAB PO DAILY for 30 Days, #30 TAB 0 Refills 08/15/24 Meloxicam (Meloxicam) 15 Mg Tablet, 1 TAB PO DAILY for 30 Days, #30 TAB 0 Refills 08/15/24 Levothyroxine Sodium (Levothyroxine) 50 Mcg Capsule, 1 CAP PO DAILY for 30 Days, #30 CAP 0 Refills 08/15/24 Famotidine (Famotidine) 20 Mg Tablet, 1 TAB PO DAILY for 30 Days, #60 TAB 0 Refills 08/15/24 Nitroglycerin (Nitroglycerin) 0.4 Mg Tab.subl, 1 TAB SL AD for chest pain, #25 TAB 0 Refills 1st sign of attack; may repeat every 5 mins; if pain persists after 3 in 15 min, medical attention is recommended 08/15/24 Bumetanide (Bumetanide) 1 Mg Tablet, 1 TAB PO BID for 30 Days, #30 TAB 0 Refills 08/15/24 Sulfamethoxazole/Trimethoprim (Bactrim Ds Tablet) 800 Mg-160 Mg Tablet, 1 TAB PO BID for 5 Days, #20 TAB 0 Refills 08/15/24 Atorvastatin Calcium (Atorvastatin Calcium) 20 Mg Tablet, 1 TAB PO DAILY for 30 Days, #30 TAB 0 Refills 08/15/24 Aspirin (ASPIRIN 81MG CHEW TAB) 81 Mg Tab.chew, 81 MG PO DAILY, TAB.CHEW 08/15/24 Benzonatate (Tessalon Perles) 100 Mg Cap, 100 MG PO TIDP, CAP 08/15/24 Metoprolol Succinate (Metoprolol Succinate) 50 Mg Tab.er.24h, 1 TAB PO DAILY for 30 Days, #30 TAB 0 Refills 08/15/24 Hydroxyzine Pamoate (Hydroxyzine Pamoate) 25 Mg Capsule, 2 CAP PO BID for anxiety for 30 Days, #60 CAP 0 Refills 08/15/24 Discontinued Reported Medications Levothyroxine Sodium (Levothyroxine) 50 Mcg Capsule, 1 CAP PO DAILY for 30 Days, #30 CAP 0 Refills 07/04/24 Metoprolol Succinate (Metoprolol Succinate) 50 Mg Tab.er.24h, 1 TAB PO DAILY for 30 Days, #30 TAB 0 Refills 07/04/24 Meloxicam (Meloxicam) 15 Mg Tablet, 15 MG PO DAILY, TAB 07/04/24 Losartan Potassium (Losartan Potassium) 25 Mg Tablet, 1 TAB PO DAILY for 30 Days, #30 TAB 0 Refills 07/04/24 Famotidine (Famotidine) 20 Mg Tablet, 20 MG PO DAILY, TAB 07/04/24 Atorvastatin Calcium (Atorvastatin Calcium) 20 Mg Tablet, 20 MG PO HS, TAB 07/04/24 Aspirin (ASPIRIN 81 MG ECTAB) 81 Mg Ectab, 81 MG PO DAILY, TAB.EC 07/04/24 Discontinued Scripts Nitroglycerin (Nitroglycerin) 0.4 Mg Tab.subl, 1 TAB SL AD for chest pain, #25 TAB 1 Refill 1st sign of attack; may repeat every 5 mins; if pain persists after 3 in 15 min, medical attention is recommended Prov:GARRY GUERRA MD 07/14/24 Latanoprost (Xalatan) 0.005 % Drops, 0 DROP OU HS for 30 Days, #1 DROP 1 Refill as directed Prov:GARRY GUERRA MD 07/14/24 New Medications: Bumetanide (Bumetanide) 1 Mg Tablet 1 MG PO DAILY for 30 Days, #30 TAB Tamsulosin HCl (Flomax) 0.4 Mg Cap.er.24h 0.4 MG PO DAILY for 30 Days, #[address] Continued Medications: Aspirin (Aspirin 81MG Chew Tab) 81 Mg Tab.chew 81 MG PO DAILY, TAB.CHEW Atorvastatin Calcium (Atorvastatin Calcium) 20 Mg Tablet 1 TAB PO DAILY for 30 Days, #30 TAB 0 Refills Benzonatate (Tessalon Perles) 100 Mg Cap 100 MG PO TIDP, CAP Famotidine (Famotidine) 20 Mg Tablet 1 TAB PO DAILY for 30 Days, #60 TAB 0 Refills Hydroxyzine Pamoate (Hydroxyzine Pamoate) 25 Mg Capsule 2 CAP PO BID for anxiety for 30 Days, #60 CAP 0 Refills Latanoprost (Latanoprost) 0.005 % Drops 1 DROP OP HS, ML 0 Refills Levothyroxine Sodium (Levothyroxine) 50 Mcg Capsule 1 CAP PO DAILY for 30 Days, #30 CAP 0 Refills Losartan Potassium (Losartan Potassium) 25 Mg Tablet 1 TAB PO DAILY for 30 Days, #30 TAB 0 Refills Metoprolol Succinate (Metoprolol Succinate) 50 Mg Tab.er.24h 1 TAB PO DAILY for 30 Days, #30 TAB 0 Refills Nitroglycerin (Nitroglycerin) 0.4 Mg Tab.subl 1 TAB SL AD for chest pain, #25 TAB 0 Refills 1st sign of attack; may repeat every 5 mins; if pain persists after 3 in 15 min, medical attention is recommended Discontinued Medications: Bumetanide (Bumetanide) 1 Mg Tablet 1 TAB PO BID for 30 Days, #30 TAB 0 Refills Meloxicam (Meloxicam) 15 Mg Tablet 1 TAB PO DAILY for 30 Days, #30 TAB 0 Refills Sulfamethoxazole/Trimethoprim (Bactrim Ds Tablet) 800 Mg-160 Mg Tablet 1 TAB PO BID for 5 Days, #20 TAB 0 Refills Time spent arranging discharge: 31-60 minutes ATTESTATION BY PHYSICIAN I have seen and examined the patient. I reviewed the documentation, medical decision making, and treatment plan as noted by the mid-level provider above. I agree with the findings and plan of care. GARRY GUERRA MD, [facility] NP Aug 22, 2024 11:22
[2024-08-22 12:32] VITALS: BP 120/70; PULSE 95; RESP 20; TEMP 98.6
--- NOTE | 2024-08-22 13:57 | PN ---
NEPHROLOGY PROGRESS NOTE Date/Time Patient Seen: Aug 22, 2024 SUBJECTIVE: This is a 64 year old male with a past medical history of Diabetes mellitus type2, hypertension, CKD, history of CVA, and CHF He presented to the emergency department with a chief complaint of bilateral lower extremities and testicles. She was admitted with a diagnosis of JOAQUÍN on CKD. We have been consulted for renal failure Renal function remains elevated Electrolytes are stable. Hemoglobin is stable He has received IV iron. He continues on Bumex1 mg p.o. daily He was seen in the telemetry floor, in no acute distress No family at the bedside Progress remains guarded REVIEW OF SYSTEMS: GENERAL:Positive for lower extremity edema NEUROLOGIC: Negative for any blurry vision, blind spots, double vision, facial asymmetry, dysphagia, dysarthria, hemiparesis, hemisensory deficits, vertigo, ataxia. HEENT: Negative for any head trauma, neck trauma, neck stiffness, photophobia, phonophobia, sinusitis, rhinitis. CARDIAC: Negative for any chest pain, dyspnea on exertion, paroxysmal nocturnal dyspnea, peripheral edema. PULMONARY: Negative for any shortness of breath, wheezing, COPD, or TB exposure. GASTROINTESTINAL: Negative for any abdominal pain, nausea, vomiting, bright red blood per rectum, melena. GENITOURINARY: Negative for any dysuria, hematuria, incontinence. INTEGUMENTARY: Negative for any rashes, cuts, insect bites. RHEUMATOLOGIC: Negative for any joint pains, photosensitive rashes, history of vasculitis or kidney problems. HEMATOLOGIC: Negative for any abnormal bruising, frequent infections or bleeding. PHYSICAL EXAM: GENERAL: Alert and oriented x 3. No acute distress. Well-nourished. EYES: EOMI. Anicteric. HENT: Moist mucous membranes. No scleral icterus. No cervical lymphadenopathy. LUNGS: Clear to auscultation bilaterally. No accessory muscle use. CARDIOVASCULAR: Regular rate and rhythm. No murmur. No JVD. ABDOMEN: Soft, non-tender and non-distended. No palpable masses. EXTREMITIES: 2+ edema. Non-tender. SKIN: No rashes or lesions. Warm. NEUROLOGIC: No focal neurological deficits. CN II-XII grossly intact, but not individually tested. PSYCHIATRIC: Cooperative. Appropriate mood and affect. LABORATORY: [ ] Hematology Labs: Test 08/22/24 03:19 Range/Units White Blood Count 6.6 4.8-10.8 K/uL Red Blood Count 3.99 L 4.50-6.20 MIL/uL Hemoglobin 10.7 L 14.0-18.0 g/dL Hematocrit 33.5 L 42-54 % Mean Corpuscular Volume 84.0 79-99 fL Mean Corpuscular Hemoglobin 26.8 L 27.0-33.0 pg Mean Corpuscular Hemoglobin Concent 31.9 L 32.0-36.0 g/dL Red Cell Distribution Width 18.8 H 11.0-15.5 % Platelet Count 156 130-400 K/uL Mean Platelet Volume 10.2 7.5-10.5 fL Nucleated Red Blood Cells 0.0 0.0-0.19 % Chemistry Labs: Test 08/22/24 05:10 08/22/24 03:19 Range/Units Whole Blood Glucose 119 H 70-110 MG/DL Sodium Level 137 136-145 mmol/L Potassium Level 3.5 3.5-5.1 mmol/L Chloride Level 98 L 101-111 mmol/L Carbon Dioxide Level 29 21-32 mmol/L Blood Urea Nitrogen 66 H 7-18 mg/dL Creatinine 3.5 H 0.5-1.3 mg/dL Glomerular Filtration Rate Calc 19 >90 mL/min Random Glucose 112 H 70-105 mg/dL Total Calcium 8.5 8.5-10.1 mg/dL Phosphorus Level 4.0 2.5-4.9 mg/dL Magnesium Level 2.00 1.80-2.40 mg/dL Total Bilirubin 1.3 H 0.2-1.0 mg/dL Aspartate Amino Transf (AST/SGOT) 53 H 10-37 U/L Alanine Aminotransferase (ALT/SGPT) 36 12-78 U/L Alkaline Phosphatase 285 H 50-136 U/L Total Protein 7.6 6.0-8.3 g/dL Albumin 2.8 L 3.5-5.0 g/dL DIAGNOSTICS / RADIOLOGY: REASON: swelling/pain, bilateral ORDERING PHYSICIAN: MICHELLE GARVEY NP PROCEDURE: SCROTUM - US SCROTUM & CONTENTS US SCROTUM & CONTENTS HISTORY: Swelling COMPARISON: None TECHNIQUE: Duplex scrotal ultrasound study was performed. FINDINGS: The right testes measures 2.9 x 2.2 x 2.7 cm. The left testes measures 3 x 2.2 x 2.2 cm. No evidence of intratesticular mass or abnormal calcification is seen. Decreased flow is demonstrated in the testes and epididymides bilaterally. There are bilateral moderate hydrocele. There is right epididymal head cyst measuring 2.4 x 2.9 cm. Severe scrotal edema is seen. Scrotal wall thickening is seen with sclerotic edema with right measuring 13 mm in thickness and left measuring 20 mm in thickness IMPRESSION: 1. No evidence of intratesticular mass is seen. 2. Decreased flow is demonstrated of both testes and epididymides. There are bilateral moderate hydrocele. Scrotal edema is seen. DICTATED BY: MIKAYLA CORRIGAN REASON: SOB ORDERING PHYSICIAN: MICHELLE GARVEY NP PROCEDURE: CXR1VW - CHEST 1VW CHEST 1VW HISTORY: Shortness of breath COMPARISON: 07/26/2024 FINDINGS: A frontal projection of the chest was obtained. Mild bilateral pulmonary infiltrates are seen may be related to mild pulmonary vascular congestion with possible superimposed pneumonitis. The heart is borderline enlarged. Degenerative changes are seen. No evidence of aortic calcification is seen. IMPRESSION: 1. Mild bilateral pulmonary infiltrates are seen may be related to mild pulmonary vascular congestion with possible superimposed pneumonitis. DICTATED BY: BETH CORRIGAN MD DATE: 08/14/241831 ASSESSMENT: Acute on Chronic renal failure Cardiorenal syndrome Anasarca Elevated troponin Uncontrolled Diabetes mellitus type2 Acute on chronic CHF with LVEF 20% stage III diastolic dysfunction Hypertension History of CVA Diabetic retinopathy and neuropathy S/p post IVC filter placement secondary to DVT and contraindication to anticoagulation. PLAN: Labs, diagnostic, radiologic exams reviewed and interpreted by myself and supervising physician. We have reviewed external records in detail Pending discharge disposition later today. Recommend increasing Bumex 1 mg p.o. b.i.d.. Follow up in the renal clinic in 1-2 weeks. He was counseled on the importance of 1.5 L fluid restriction Require close monitoring of renal function and electrolytes Renal diabetic diet Monitor blood pressure adjust medication doses as needed Avoid hypotensive episodes May use Dilaudid 0.5 mg IV every 6 hours as needed for severe pain Monitor blood sugars Strict intake, output, and daily weight should be monitored Please renally adjust medications Avoid nephrotoxic and nonsteroidal drugs Avoid contrast if possible Will continue to monitor renal function, anemia, electrolytes Treatment plan discussed with patient Questions were answered We have discussed with the other team physicians in detail about the care plan We will continue to monitor the patient closely ATTESTATION BY PHYSICIAN I have seen and examined the patient. I reviewed the documentation, medical decision making, and treatment plan as noted by the mid-level provider above. I agree with the findings and plan of care. DENZEL ACKERMAN MD, [facility] Aug 22, 2024 13:57
== END 2024-08-22 14:03 | disposition home or self-care (01) | DRG 291 ==
LOC: EDH 16:45 → EDHIP 19:10 → 4CH 08-15 00:38 → 4DH 08-15 13:40 → 2DH 08-16 17:02
PROVIDERS: ADMIT Internal Medicine; ATTEND Internal Medicine
DX: I13.2 Hypertensive heart and chronic kidney disease with heart failure and with stage 5 chronic kidney disease, or end stage renal disease (principal); I50.33 Acute on chronic diastolic (congestive) heart failure; N18.6 End stage renal disease; N17.9 Acute kidney failure, unspecified; N43.3 Hydrocele, unspecified; D64.9 Anemia, unspecified; E11.22 Type 2 diabetes mellitus with diabetic chronic kidney disease; E11.319 Type 2 diabetes mellitus with unspecified diabetic retinopathy without macular edema; E11.40 Type 2 diabetes mellitus with diabetic neuropathy, unspecified; E11.621 Type 2 diabetes mellitus with foot ulcer; E11.65 Type 2 diabetes mellitus with hyperglycemia; E78.5 Hyperlipidemia, unspecified; F32.A Depression, unspecified; F41.9 Anxiety disorder, unspecified; G47.00 Insomnia, unspecified; I25.10 Atherosclerotic heart disease of native coronary artery without angina pectoris; I25.2 Old myocardial infarction; Z51.5 Encounter for palliative care; Z79.82 Long term (current) use of aspirin; Z79.899 Other long term (current) drug therapy; Z86.73 Personal history of transient ischemic attack (TIA), and cerebral infarction without residual deficits; Z91.148 Patient's other noncompliance with medication regimen for other reason; Z95.828 Presence of other vascular implants and grafts
CPT/HCPCS: 36415; 71045; 76870; 80048; 80053; 81001; 82570; 82728; 82948; 83036; 83540; 83550; 83735; 83880; 83935; 84100; 84156; 84300; 84443; 84484; 85025; 85027; 93005; 96374; 96375; 99285; A6248; G0378; J1171; J1250; J1756; J1815; J1940; J2270; J2405; J3475; J3490; J7050; P9047; Q0162; Q0163

== ENCOUNTER 2024-08-26 11:06 | Inpatient (IN) | payer BC, OTHER ==
[~2024-08-26] VITALS: Ht 172.7 cm; Wt 87.3 kg
[~2024-08-26 11:06] MED LIST changes: -AEC81 PO; +ASPI-1005 PO; +BENZ-39 PO; +BUME1TAB6 PO; +HYDR-4030 PO; +LATA2.5D14 OP; -LATA2.5D15 OU; -MELO-108 PO; +TAMS-1 PO
--- NOTE | 2024-08-26 11:22 | ERN ---
ED Note History of Present Illness Stated Complaint: INCREASED SOB, HICCUPS X3 DAYS AND CHEST PRESSURE Chief Complaint: Chest Pain Time Seen by MD: 11:09 Dictation: PATIENT IS A 64-YEAR-OLD MALE COMING IN WITH SHORTNESS A BREATH/ORTHOPNEA AND SWELLING TO HIS LOWER EXTREMITIES FOR THE LAST 2-3 DAYS. HE IS ALSO STATES HE HAS HAD CHEST PRESSURE FOR THE LAST SEVERAL DAYS. FINALLY, HE IS COMPLAINING OF HICCUPS HE HAS HAD FOR THE LAST THREE DAYS. PATIENT STATES HE WAS JUST DISCHARGED FROM [facility] ON WEDNESDAY WITH DIAGNOSIS OF CHF EXACERBATION, [employer]ER'S HIS DOCTOR SIV. HE DOES NOT HAVE A PRIMARY CARE DOCTOR, STATES HE JUST GOT [facility] OF [facility] AND WAS SEEING A DOCTOR IN [facility] HOWEVER HE NOW LIVES IN [place] AND WE WILL NOT BE GOING BACK TO THAT DOCTOR. Allergies: Coded Allergies: No Known Drug Allergies (Unverified Allergy, Unknown, 07/04/24) Home Meds Active Scripts Bumetanide (Bumetanide) 1 Mg Tablet, 1 MG PO DAILY for 30 Days, #30 TAB Prov:BRIDGER MCCALL NP 08/21/24 Tamsulosin HCl (Flomax) 0.4 Mg Cap.er.24h, 0.4 MG PO DAILY for 30 Days, #30 CAPSULE.DR Prov:BRIDGER MCCALL NP 08/21/24 Reported Medications Latanoprost (Latanoprost) 0.005 % Drops, 1 DROP OP HS, ML 0 Refills 08/15/24 Losartan Potassium (Losartan Potassium) 25 Mg Tablet, 1 TAB PO DAILY for 30 Days, #30 TAB 0 Refills 08/15/24 Levothyroxine Sodium (Levothyroxine) 50 Mcg Capsule, 1 CAP PO DAILY for 30 Days, #30 CAP 0 Refills 08/15/24 Famotidine (Famotidine) 20 Mg Tablet, 1 TAB PO DAILY for 30 Days, #60 TAB 0 Refills 08/15/24 Nitroglycerin (Nitroglycerin) 0.4 Mg Tab.subl, 1 TAB SL AD for chest pain, #25 TAB 0 Refills 1st sign of attack; may repeat every 5 mins; if pain persists after 3 in 15 min, medical attention is recommended 08/15/24 Atorvastatin Calcium (Atorvastatin Calcium) 20 Mg Tablet, 1 TAB PO DAILY for 30 Days, #30 TAB 0 Refills 08/15/24 Aspirin (ASPIRIN 81MG CHEW TAB) 81 Mg Tab.chew, 81 MG PO DAILY, TAB.CHEW 08/15/24 Benzonatate (Tessalon Perles) 100 Mg Cap, 100 MG PO TIDP, CAP 08/15/24 Metoprolol Succinate (Metoprolol Succinate) 50 Mg Tab.er.24h, 1 TAB PO DAILY for 30 Days, #30 TAB 0 Refills 08/15/24 Hydroxyzine Pamoate (Hydroxyzine Pamoate) 25 Mg Capsule, 2 CAP PO BID for anxiety for 30 Days, #60 CAP 0 Refills 08/15/24 Discontinued Reported Medications Meloxicam (Meloxicam) 15 Mg Tablet, 1 TAB PO DAILY for 30 Days, #30 TAB 0 Refills 08/15/24 Bumetanide (Bumetanide) 1 Mg Tablet, 1 TAB PO BID for 30 Days, #30 TAB 0 Refills 08/15/24 Sulfamethoxazole/Trimethoprim (Bactrim Ds Tablet) 800 Mg-160 Mg Tablet, 1 TAB PO BID for 5 Days, #20 TAB 0 Refills 08/15/24 Past Medical History Past Medical History: CAD, Depression, Diabetes-Type II, High Cholesterol, Hypertension Surgical History: Unknown RN Note Reviewed/Agreed w/PFSH: Yes Review of System Dictation CONSTITUTIONAL: NEGATIVE EXCEPT FOR HPI HICCUPS HEAD/FACE: NEGATIVE EXCEPT FOR HPI EENT: NEGATIVE EXCEPT FOR HPI RESPIRATORY: NEGATIVE EXCEPT FOR HPI SHORTNESS A BREATH/EDEMA WITH CHEST PAIN GASTROINTESTINAL/ABDOMINAL: NEGATIVE EXCEPT FOR HPI GENITOURINARY: NEGATIVE EXCEPT FOR HPI MUSCULOSKELETAL: NEGATIVE EXCEPT FOR HPI INTEGUMENTARY: NEGATIVE EXCEPT FOR HPI NEUROLOGICAL/PSYCH: NEGATIVE EXCEPT FOR HPI HEMATOLOGIC/LYMPHATIC: NEGATIVE EXCEPT FOR HPI ALL SYSTEMS NEGATIVE, EXCEPT NOTED ABOVE. 13 POINT REVIEW OF SYSTEMS ASSESSED AND ALL NEGATIVE EXCEPT FOR ABOVE. Initial Vital Sign VS Vital Signs Date Time Temp Pulse Resp B/P (MAP) Pulse Ox O2 Delivery O2 Flow Rate FiO2 08/26/24 11:08 97.9 98 16 117/83 Room Air Physical Exam Dictation VITAL SIGNS REVIEWED GENERAL APPEARANCE: ALERT, ORIENTED X 3, PATIENT APPEARS ILL HEAD AND FACE: NON-TRAUMATIC. EYES: PERRL, PINK CONJUNCTIVAS, EYELID NO TRAUMA, ANTERIOR CHAMBER WITH ARCUS SENILIS. EARS: PINNAS INTACT AND NO SIGNS OF TRAUMA OR ERYTHEMA EAR CANALS CLEAR AND NO DISCHARGE TM NO ERYTHEMA NOSE: NO DISCHARGE, NO BLEEDING. OROPHARYNX: MOUTH NORMAL, TONGUE PINK, PHARYNX CLEAR,NO ERYTHEMA, TONSILS NO EXUDATES, NO ABSCESSES NOTED, MUCOUS MEMBRANE MOIST NECK: SUPPLE, NON-TENDER, NO THYROMEGALY, NO MASSES, NO JVD, NO BRUITS BREAST:DEFERRED CHEST:NO TENDERNESS, NO CREPITUS, NO PARADOXICAL MOVEMENT, NO RETRACTIONS LUNGS:CLEAR, WELL-VENTILATED, SYMMETRIC, NO RALES, NO WHEEZING, NO RHONCHI, NO STRIDOR, CLEAR TO AUSCULTATION ROTATION/DIMINISHED IN THE BASES HEART: REGULAR RATE, REGULAR RHYTHM, NO MURMUR, NO GALLOPS VASCULAR: N 2+ PERIPHERAL EDEMA BILATERAL LOWER EXTREMITIES TO KNEES ABDOMEN: SOFT, POSITIVE BOWEL SOUNDS, NONDISTENDED, NO GUARDING, NONTENDER, NO REBOUND, NO MASSES NO HEPATOMEGALY, NO SPLENOMEGALY, NO ALMARAZ'S SIGN, NO HERNIAS. RECTAL: DEFERRED GENITAL: DEFERRED NEUROLOGICAL: NORMAL SPEECH, MOTOR FUNCTION INTACT, SENSORY FUNCTION INTACT MUSCULOSKELETAL: NECK NONTENDER, FULL RANGE OF MOTION, BACK NONTENDER, FULL RANGE OF MOTION, EXTREMITIES: NONTENDER, FULL RANGE OF MOTION SKIN: COLOR PINK, DRY, NO TURGOR, NO RASH, NO LACERATIONS, NO ABRASIONS, NO CONTUSIONS. LYMPHATIC: DEFERRED Results (Laboratory/Radiology) Laboratory/Radiology Laboratory Tests Test 08/26/24 11:32 08/26/24 12:13 White Blood Count 18.6 K/uL (4.8-10.8) H Red Blood Count 4.57 MIL/uL (4.50-6.20) Hemoglobin 12.5 g/dL (14.0-18.0) L Hematocrit 37.2 % (42-54) L Mean Corpuscular Volume 81.4 fL (79-99) Mean Corpuscular Hemoglobin 27.4 pg (27.0-33.0) Mean Corpuscular Hemoglobin Concent 33.6 g/dL (32.0-36.0) Red Cell Distribution Width 21.0 % (11.0-15.5) H Platelet Count 209 K/uL (130-400) Mean Platelet Volume 10.4 fL (7.5-10.5) Immature Granulocyte % (Auto) 1.3 % (0-1) H Neutrophils (%) (Auto) 88.0 % (40.0-77.0) H Lymphocytes (%) (Auto) 3.5 % (21.0-51.0) L Monocytes (%) (Auto) 7.0 % (3.0-13.0) Eosinophils (%) (Auto) 0.1 % (0.0-8.0) Basophils (%) (Auto) 0.1 % (0.0-5.0) Neutrophils # (Auto) 16.4 K/uL (1.8-7.7) H Lymphocytes # (Auto) 0.7 K/uL (1.0-4.8) L Monocytes # (Auto) 1.3 K/uL (0.1-1.0) H Eosinophils # (Auto) 0.01 K/uL (0.00-0.70) Basophils # (Auto) 0.02 K/uL (0.00-0.20) Absolute Immature Granulocyte (auto 0.25 K/uL (0-1) Nucleated Red Blood Cells 0.0 % (0.0-0.19) White Cell Morphology Comment See comments Red Blood Cell Morphology See comments Sodium Level 134 mmol/L (136-145) L Potassium Level 3.9 mmol/L (3.5-5.1) Chloride Level 97 mmol/L (101-111) L Carbon Dioxide Level 29 mmol/L (21-32) Blood Urea Nitrogen 70 mg/dL (7-18) H Creatinine 2.8 mg/dL (0.5-1.3) H Glomerular Filtration Rate Calc 25 mL/min (>90) Random Glucose 253 mg/dL (70-105) H Total Calcium 8.9 mg/dL (8.5-10.1) Troponin I High Sensitivity 744 ng/L (4-75) *H B-Type Natriuretic Peptide 4690 pg/mL (0-100) H Urine Color YELLOW (YELLOW) Urine Appearance HAZY (CLEAR) Urine pH 5.5 (5.0-8.0) Urine Specific [place] 1.018 (1.001-1.031) Urine Protein 200 mg/dL (NEGATIVE) H Urine Glucose (UA) 70 mg/dL (NEGATIVE) H Urine Ketones NEGATIVE mg/dL (NEGATIVE) Urine Occult Blood SMALL (NEGATIVE) H Urine Nitrate NEGATIVE (NEGATIVE) Urine Bilirubin NEGATIVE mg/dL (NEGATIVE) Urine Urobilinogen 4.0 mg/dL (0.2-1.0) H Urine Leukocyte Esterase 250 Anabelle/uL (NEGATIVE) H Urine RBC 6-10 /HPF (0-1) H Urine WBC 51-100 /HPF (0-1) H Urine Squamous Epithelial Cells RARE /HPF (0-2) Urine Bacteria RARE /HPF (None Seen) Urine Hyaline Casts 2-5 /LPF (0-1 /LPF) H Labs Reviewed?: Yes EKG Comment: EKG SINUS RHYTHM/HEART RATE 82/OCCASIONAL PACS AND NONSPECIFIC CHANGES. ED Course ED Course Orders Procedure Category Date Status Time Cbc With Differential LAB 08/26/24 Complete 11:17 B-Type Natriuretic LAB 08/26/24 Complete Peptide 11:17 Chest 1vw RAD 08/26/24 Resulted 11:17 12 Lead Ekg Tracing- EKG 08/26/24 Logged Technical 11:17 Troponin I High LAB 08/26/24 Complete Sensitivity 11:17 Urinalysis Profile LAB 08/26/24 Complete 11:17 Basic Metabolic Panel LAB 08/26/24 Complete 11:17 Culture Urine LILIAN 08/26/24 In Process 12:59 Furosemide 100mg Vial PHA 08/26/24 Complete (Lasix 100mg Vial) 14:00 Chlorpromazine Hcl PHA 08/26/24 In Process (Thorazine 25mg Tab) 14:30 Blood Cult LILIAN 08/26/24 Logged 14:29 Lactic Acid LAB 08/26/24 In Process 14:29 Levofloxacin 750 PHA 08/26/24 Complete Mg/D5w 150 Ml 14:30 Albuterol 0.083% PHA 08/26/24 Complete 2.5mg/3ml (Proventil 15:00 Admit Orders ADM 08/26/24 Transmitted 14:40 Edm Admit Bridge Order ADM 08/26/24 Transmitted 14:40 Influenza A And B Pcr LAB 08/26/24 Logged 14:48 Covid Rna Naat LAB 08/26/24 Logged 14:48 Vital Signs(Adult CPOE 08/26/24 Transmitted Hospitalist) 14:55 Nurse To Enter Home CPOE 08/26/24 Transmitted Medication 14:55 Admit Orders ADM 08/26/24 Transmitted 14:55 Telemetry Monitoring CPOE 08/26/24 Transmitted 14:55 Nothing By Mouth DIET 08/26/24 Transmitted Dinner Famotidine 20mg Vial PHA 08/26/24 In Process (Pepcid 20mg Vial) 21:00 Nephrology Consult CONPHYSVC 08/26/24 Transmitted 14:55 Ct Abdomen/Pelvis W/O CT 08/26/24 Logged Contrast 14:55 *Nursing CPOE 08/26/24 Transmitted Communication: 14:55 Cardiology Consult CONPHYSVC 08/26/24 Transmitted 14:55 Ceftriaxone 1g Vial PHA 08/27/24 In Process (Rocephine 1g Inj) 09:00 Current Medications Medications (Trade) Dose Ordered Sig/Anjelica Route PRN Reason Start Time Stop Time Status Last Admin Dose Admin Chlorpromazine HCl (ThorAZINE 25MG TAB) 50 mg ONCE PO 08/26/24 14:30 09/25/24 14:29 08/26/24 14:53 Furosemide (LASix 100MG VIAL) 80 mg ONCE ONCE IVP 08/26/24 14:00 08/26/24 14:01 DC 08/26/24 14:00 Levofloxacin/ Dextrose (LEvaquIN 750 MG/ D5W 150 ML) 750 mg ONCE ONCE IV 08/26/24 14:30 08/26/24 14:34 DC Vital Signs Date Time Temp Pulse Resp B/P (MAP) Pulse Ox O2 Delivery O2 Flow Rate FiO2 08/26/24 11:08 97.9 98 16 117/83 Room Air [address] bonds, reviewed EKG labs chest x-ray and interventions for pneumonia and CHF exacerbation. All questions answered. HEART Score Response (Comments) Value Age: 45-65yrs (+1) 1 Risk Factors: 3+ risk factors (+2) 2 Initial Troponin: >3x Normal Limit (+2) 2 Total 5 Medical Decision Making MDM MDM: Differential diagnosis: ACS/AMI/congestive heart failure/electrolyte imbalance/dehydration/pneumonia/bronchitis/SARs COVID Rationale: Tests considered and ordered secondary to shared decision making include: labs, ECG and radiology Previous outside records reviewed: Old ER visits. Reviewed Risk of complication and/or morbidity or mortality of patient management: Moderate Medications-Per medication reconciliation Need for hospitalization: Patient does meet criteria for hospitalization. Diuresis and intractable hiccups treatment Need for emergency major/minor surgery: No There are no social concerns with this patient. No web services architect's at this time Prescription drug management Prescriptions will include symptomatic care Patient's prior external medical records from other ER visits were reviewed by me as indicated. Prior testing and results from previous visits were reviewed. Prior tests were taken into account with medical decision making and resource utilization, independent historian/historians were used to obtain complete medical history. I independently interpreted the test that were performed, results were reviewed by me and considered findings on radiology if ordered. Medical management and examination interpretation discussions were had by me with other qualified healthcare professionals as indicated for the patient's care. DX & DISP Disposition: Inpatient Decision to Admit Time: 14:38 Departure Impression: Primary Impression: CHF exacerbation Additional Impressions: Uncontrolled diabetes mellitus with hyperglycemia, CKD (chronic kidney disease), Intractable hiccups, Bilateral pneumonia Condition: Stable Referrals: PEDRO LUIS MARSHALL (PCP) Time of Disposition: 14:38 I have reviewed the case, and I agree with, Diagnosis and Plan CRAIG LI NP Aug 26, 2024 11:22 MAISHA THOMPSON MD Aug 26, 2024 15:17
[2024-08-26 11:47] LABS: BASOPHILS # (AUTO) 0.02 K/uL (0.00-0.20); BASOPHILS % (AUTO) 0.1 % (0.0-5.0); EOSINOPHILS # (AUTO) 0.01 K/uL (0.00-0.70); EOSINOPHILS % (AUTO) 0.1 % (0.0-8.0); HEMATOCRIT 37.2 % (42-54); IMMATURE GRANULOCYTE ABSOLUTE 0.25 K/uL (0-1); LYMPHOCYTES # (AUTO) 0.7 K/uL (1.0-4.8); LYMPHOCYTES % (AUTO) 3.5 % (21.0-51.0); MEAN CORPUSCULAR HEMOGLOBIN 27.4 pg (27.0-33.0); MEAN CORPUSCULAR HGB CONC 33.6 g/dL (32.0-36.0); MEAN CORPUSCULAR VOLUME 81.4 fL (79-99); MONOCYTES # (AUTO) 1.3 K/uL (0.1-1.0); NEUTROPHILS # (AUTO) 16.4 K/uL (1.8-7.7); PLATELET COUNT (AUTO) 209 K/uL (130-400); RED BLOOD CELL COUNT(AUTO) 4.57 MIL/uL (4.50-6.20); WHITE BLOOD COUNT (AUTO) 18.6 K/uL (4.8-10.8)
[2024-08-26 11:55] LABS: CREATININE 2.8 mg/dL (0.5-1.3); POTASSIUM 3.9 mmol/L (3.5-5.1)
[2024-08-26 12:11] LABS: B-TYPE NATRIURETIC PEPTIDE 4690 pg/mL (0-100)
--- NOTE | 2024-08-26 12:25 | HMCIMG ---
CHEST 1VW HISTORY: Shortness of breath COMPARISON: 08/14/2024 FINDINGS: A frontal projection of the chest was obtained. Mild bilateral pulmonary infiltrates are seen may be related to mild pulmonary vascular congestion with possible superimposed pneumonitis. The heart is enlarged. Right pleural effusion is seen with compressive atelectasis. Degenerative changes are seen. No evidence of aortic calcification is seen. IMPRESSION: 1. Mild bilateral pulmonary infiltrates are seen may be related to mild pulmonary vascular congestion with possible superimposed pneumonitis.
[2024-08-26 12:57] LABS: BILIRUBIN,URINE NEGATIVE (NEGATIVE); COLOR,URINE YELLOW (YELLOW); GLUCOSE, URINE (UA) 70 mg/dL (NEGATIVE); KETONES,URINE NEGATIVE (NEGATIVE); LEUKOCYTE ESTERASE ,URINE 250 Leu/uL (NEGATIVE); NITRATE,URINE NEGATIVE (NEGATIVE); OCCULT BLOOD,URINE SMALL (NEGATIVE); PH,URINE 5.5 (5.0-8.0); PROTEIN,URINE 200 mg/dL (NEGATIVE)
[2024-08-26 12:58] LABS: ADD UA MICROSCOPIC YES; APPEARANCE,URINE HAZY (CLEAR)
[2024-08-26 13:01] LABS: BACTERIA,URINE RARE /HPF (None Seen); MUCUS,URINE RARE LPF (None Seen); SQUAMOUS EPITHELIAL CELL,UR RARE /HPF (0-2); WBC,URINE 51-100 /HPF (0-1)
[2024-08-26] MEDS: furoSEMIDE 100MG VIAL 10 MG/ML VIAL IVP ONE (14:00)
[2024-08-26] MEDS: chlorproMAZINE HCL 25 MG TAB PO SCH (14:53)
--- NOTE | 2024-08-26 15:16 | HP ---
[facility] HISTORY AND PHYSICAL Date of Service: Aug 26, 2024 Time of Service: 15:03 HISTORY OF PRESENT ILLNESS: Date of Service: 08/26/2024 64-year-old male with past medical history of diabetes mellitus type 2, hypertension, hyperlipidemia, CKD, CVA, CAD history of heart failure with the EF of less than 20 person, history of diastolic dysfunction present to the hospital hiccups. The patient states for the past three days he has been having persistent two cups and he has not been able to tolerate p.o. at home. He has no knee able to tolerate solids or liquids. Has had two episodes of vomiting and denies any hematemesis, hematochezia, or melena. He has noted very scant amount of bone movements. He denies passing flatus. Denied any fever, chills, cough, shortness of breath, falls, syncopal episode. Patient has a history of multivessel CAD and does refused CABG in the past. He is currently followed by Dr. Regan as outpatient. Denies any shortness of breath with activity. He has lower extremity edema which will patient does improving. Patient was recently you can read to and no salt. He was treated with IV dobutamine drip and was di uresed thereafter. His creatinine on discharge was 3.5. Labs in the ED were notable for white count of 18.6, hemoglobin was 12.7, platelet count was 209k, sodium that is 134, potassium was 3.9, creatinine is 2 point it, BNP is 4 690, troponin was mildly elevated at 744 He underwent a chest x-ray which showed mild congestive changes REVIEW OF SYSTEMS CONSTITUTIONAL: Denies fevers, chills, or night sweats. No unintentional weight loss reported. NEUROLOGICAL: Denies headache, amaurosis fugax, motor weakness, sensory deficit, vertigo/spinning sensation, gait abnormalities, or tremors. ENT: No hearing loss, otalgia, otorrhea, rhinitis, rhinorrhea, hoarseness, or sore throat. CARDIOVASCULAR: Denies any exertional angina, dyspnea on exertion, orthopnea, paroxysmal nocturnal dyspnea, palpitations, life-threatening arrhythmias, claudication. PULMONARY: Denies any shortness of breath, cough, phlegm/sputum, hemoptysis, pleuritic chest pain. SLEEP: Denies morning headaches, daytime somnolence or napping. Denies difficulty falling asleep, staying asleep, waking from sleep. Denies knowledge of snoring. GASTROINTESTINAL: Positive for hiccups, abdominal distention, decreased appetite, nausea, vomiting. I have denied any hematochezia, melena, hematochezia GENITOURINARY: Denies frequency, urgency, nocturia, hematuria or incontinence (Storage/Irritative symptoms.) Low urinary stream, straining to void, urinary intermittency or hesitancy, splitting of the voiding stream, terminal dribbling. ENDOCRINOLOGIC: Denies polyuria, polydipsia, polyphagia or heat/cold intolerances. HEMATOLOGIC: Denies thrombophilia/previous clots, or coagulopathy/bleeding disorders. ONCOLOGIC: Denies personal history of malignancy. PSYCHIATRIC: Denies any suicidal or homicidal ideation. Denies hallucinations. PAST MEDICAL HISTORY: Diabetes mellitus type 2, hypertension, hyperlipidemia, CKD, history of CAD, history of heart failure with EF of less than 20%, diastolic dysfunction stage III PAST SURGICAL HISTORY: History of appendectomy PAST SOCIAL HISTORY: Denied smoking, alcohol, drug use FAMILY HISTORY: Denied any pertinent family history Coded Allergies: No Known Drug Allergies (Unverified Allergy, Unknown, 07/04/24) PHYSICAL EXAM GENERAL APPEARANCE: The patient is awake, alert, and oriented, in no acute cardiopulmonary distress. NEUROLOGICAL: Cranial nerves II-XII grossly intact. Motor is 5/5 in bilateral upper and lower extremities proximal to distal. No sensory deficits. HEENT: Face is symmetric. Pupils are equal and reactive. Extraocular movements are intact. NECK: Supple. No JVD. No thyromegaly. No submental, submandibular, pre- /postauricular, occipital or supraclavicular lymphadenopathy. CHEST: Normal chest expansion. No Telemetry. LUNGS: Absence of any rales, rhonchi or any wheezing. CARDIOVASCULAR: Regular. S1 and S2 normal. No appreciable rubs, murmurs or gallops. ABDOMEN: Abdomen is distended. The abdomen is soft to palpation. Bowel sounds are hypoactive : Deferred. No Guillermo. EXTREMITIES: 1+ pitting edema in the lower extremity and not cyanotic. No clubbing. Good capillary refill. SKIN: No skin breakdown. Vital Sign (Last 24 Hours) 08/26/24 11:08 Temp 97.9 Pulse 98 Resp 16 B/P (MAP) 117/83 O2 Delivery Room Air LABS: Laboratory: Test 08/26/24 12:13 08/26/24 11:32 Range/Units Urine Color YELLOW YELLOW Urine Appearance HAZY CLEAR Urine pH 5.5 5.0-8.0 Urine Specific [place] 1.018 1.001-1.031 Urine Protein 200 H NEGATIVE mg/dL Urine Glucose (UA) 70 H NEGATIVE mg/dL Urine Ketones NEGATIVE NEGATIVE mg/dL Urine Occult Blood SMALL H NEGATIVE Urine Nitrate NEGATIVE NEGATIVE Urine Bilirubin NEGATIVE NEGATIVE mg/dL Urine Urobilinogen 4.0 H 0.2-1.0 mg/dL Urine Leukocyte Esterase 250 H NEGATIVE Anabelle/uL Urine RBC 6-10 H 0-1 /HPF Urine WBC 51-100 H 0-1 /HPF Urine Squamous Epithelial Cells RARE 0-2 /HPF Urine Bacteria RARE None Seen /HPF Urine Hyaline Casts 2-5 H 0-1 /LPF /LPF White Blood Count 18.6 H 4.8-10.8 K/uL Red Blood Count 4.57 4.50-6.20 MIL/uL Hemoglobin 12.5 L 14.0-18.0 g/dL Hematocrit 37.2 L 42-54 % Mean Corpuscular Volume 81.4 79-99 fL Mean Corpuscular Hemoglobin 27.4 27.0-33.0 pg Mean Corpuscular Hemoglobin Concent 33.6 32.0-36.0 g/dL Red Cell Distribution Width 21.0 H 11.0-15.5 % Platelet Count 209 130-400 K/uL Mean Platelet Volume 10.4 7.5-10.5 fL Immature Granulocyte % (Auto) 1.3 H 0-1 % Neutrophils (%) (Auto) 88.0 H 40.0-77.0 % Lymphocytes (%) (Auto) 3.5 L 21.0-51.0 % Monocytes (%) (Auto) 7.0 3.0-13.0 % Eosinophils (%) (Auto) 0.1 0.0-8.0 % Basophils (%) (Auto) 0.1 0.0-5.0 % Neutrophils # (Auto) 16.4 H 1.8-7.7 K/uL Lymphocytes # (Auto) 0.7 L 1.0-4.8 K/uL Monocytes # (Auto) 1.3 H 0.1-1.0 K/uL Eosinophils # (Auto) 0.01 0.00-0.70 K/uL Basophils # (Auto) 0.02 0.00-0.20 K/uL Absolute Immature Granulocyte (auto 0.25 0-1 K/uL Nucleated Red Blood Cells 0.0 0.0-0.19 % White Cell Morphology Comment See comments Red Blood Cell Morphology See comments Sodium Level 134 L 136-145 mmol/L Potassium Level 3.9 3.5-5.1 mmol/L Chloride Level 97 L 101-111 mmol/L Carbon Dioxide Level 29 21-32 mmol/L Blood Urea Nitrogen 70 H 7-18 mg/dL Creatinine 2.8 H 0.5-1.3 mg/dL Glomerular Filtration Rate Calc 25 >90 mL/min Random Glucose 253 H 70-105 mg/dL Total Calcium 8.9 8.5-10.1 mg/dL Troponin I High Sensitivity 744 *H 4-75 ng/L B-Type Natriuretic Peptide 4690 H 0-100 pg/mL Current Medications Medications (Trade) Dose Ordered Sig/Anjelica Route PRN Reason Start Time Stop Time Status Last Admin Dose Admin Chlorpromazine HCl (ThorAZINE 25MG TAB) 50 mg ONCE PO 08/26/24 14:30 09/25/24 14:29 08/26/24 14:53 50 MG Famotidine (Pepcid 20mg Vial) 20 mg Q24H IV 08/26/24 21:00 09/25/24 20:59 DIAGNOSTICS / RADIOLOGY: [ ] ASSESSMENT: Intractable hiccups BUN Bowel obstruction rule out Suspected UTI Acute on chronic CHF exacerbation with systolic and diastolic dysfunction with EF of less than 20% CKD stage 4 Troponin elevation likely in setting of type 2 IN History of CVA History of diverticular nobody The history of IVC 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 We will obtain a CT abdomen to rule out bowel obstruction. Abdomen is soft to palpation. He will be NPO for now. Patient will be started on Rocephin. -we will request consultation with Cardiology. The patient's troponin is chronically elevated. Denies any chest pain at this time. -will request consultation with Nephrology secondary to underlying CKD -patient will be NPO for now - check TSH, A1c: Procalcitonin, CRP -further orders per hospitalization course Plan of care was discussed with patient at bedside Advanced Care Planning Which of the following were discussed: Hospice care: Yes __ No _x_ Therapeutic options: Yes __ No __ Advance directives: Yes __ No __ Other discussions: Discussed with who?: patient (Patient, family or surrogates) Voluntary nature of this service was explained to the patient? Yes _x_ No __ Amount of time spent: 25 minutes CHARAN Casey MD, MD Aug 26, 2024 15:16
[2024-08-26] MEDS: ALBUTEROL 0.083% 2.5 MG/3 ML INH IH ONE (15:26)
[2024-08-26] MEDS: levoFLOXacin 750 MG/D5W 150ML BAG IV ONE (15:44)
--- NOTE | 2024-08-26 15:45 | NUR ---
DR TORRES CARDIOLOGY AT BEDSIDE
--- NOTE | 2024-08-26 16:03 | HMCIMG ---
CT ABDOMEN/PELVIS W/O CONTRAST REASON: intractable hiccups, rule out obstrcution, abdominal distention COMPARISON: None. FINDINGS: Lung bases are clear. There are no focal liver lesions. There is bilateral perinephric stranding, often a reflection of chronic renal disease. There is no mass, stone or hydronephrosis.. Spleen and pancreas appear unremarkable. The gallbladder appears normal as well. There is mild sigmoid diverticulosis without evidence of diverticulitis. Bowel loops appear otherwise unremarkable.. The appendix was not separately identified. There is no evidence of obstruction. There is no evidence of free intraperitoneal air. There is a small to moderate volume of free fluid around the liver and spleen as well as in the pelvic cul-de-sac, etiology not identified. There are no focal fluid collections. Aorta and retroperitoneum appear normal as do pelvic soft tissue structures. There is edema in the anterior abdominal wall consistent with anasarca.. Osseous structures appear unremarkable. IMPRESSION: 1. Moderate amount of free fluid in the abdomen and pelvis, etiology not identified. 2. Edema in the anterior abdominal wall consistent with anasarca. 3. No evidence of bowel obstruction. CT was performed with one or more following dose reduction techniques: automated exposure control, adjustment of the mA and kv according to patient's size, or use of a iterative reconstruction technique.
[2024-08-26 16:06] VITALS: PULSE 108; RESP 14
--- NOTE | 2024-08-26 18:54 | NUR ---
DR ACKERMAN NEPHROLOGY CONSULT ORDERS RECEIVED
[2024-08-26 19:01] LABS: SARS-CoV-2, RNA, NAAT NEGATIVE SARS CoV-2 (NEGATIVE)
[2024-08-26 19:05] LABS: INFLUENZA TYPE A Negative For Type A (NEGATIVE); INFLUENZA TYPE B Negative For Type B (NEGATIVE)
[2024-08-26] MEDS: FAMOTIDINE 20MG VIAL IV SCH (21:26)
[2024-08-26 22:05] VITALS: O2SAT 97
--- NOTE | 2024-08-27 01:01 | CONS ---
NEPHROLOGY NOTE REASON FOR CONSULTATION: Renal failure. HISTORY OF PRESENT ILLNESS: The patient has been brought to the Emergency Room with diabetes, hypertension, hyperlipidemia with a very low ejection fraction of 20-25%. The patient came with hiccups and shortness of breath, this patient has and unable to take orally. 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 The patient has some fluid overload and edema. The patient has recently received dobutamine. He has increasing edema. He has increasing WBC count and he has elevated creatinine of 2 or above. PAST MEDICAL HISTORY: As above, diabetes, hypertension, cardiomyopathy, hyperlipidemia, coronary artery disease, fluid overload, hypoalbuminemia and multiple others. PAST SURGICAL HISTORY: Appendicectomy. SOCIAL HISTORY: Denies any smoking, alcohol or drug abuse. FAMILY HISTORY: Negative for present contacts with no history of kidney cyst or stone. ALLERGIES: None reported to me. REVIEW OF SYSTEMS: CONSTITUTIONAL: No fever, chills or rigors. HEENT: With no headache, oral ulcers, sore throat or difficulty swallowing. No new vision complaint. RESPIRATORY: No cough, expectoration, hemoptysis or pleuritic pain. CARDIOVASCULAR: Has shortness of breath. Has some orthopnea and has anasarca. GASTROINTESTINAL: Negative for nausea and vomiting, but has hiccups and abdominal distention. GENITOURINARY: Negative for dysuria or hematuria. DERMATOLOGICAL: No rashes, pruritus or skin lesion. ENDOCRINE: No polyuria, polydipsia or polyphagia. PSYCHIATRIC: Negative for anxiety, depression or hallucinations. PHYSICAL EXAMINATION: GENERAL: Pale, no other distress, sick looking, awake, alert, oriented. VITAL SIGNS: Blood pressure is 117/80, pulse 98, respiratory rate is 16. HEENT: Head is atraumatic. Pupils are round and reactive. Sclerae are anicteric. Conjunctivae not pale. Oral mucosa is not dry. NECK: Without masses, bruits. Thyroid is palpable. Neck has no bruits. CHEST: Shows equal thoracic percussion note being resonant in all areas. CARDIAC: Regular rhythm. No rub, no S3, S4. No parasternal heave. EXTREMITIES: With edema. No cyanosis, clubbing. BACK: No tenderness or back deformities. LABORATORY DATA: Labs have shown urine showing proteinuria. The patient has a white cell count 18, hemoglobin is 12.5. Old records reviewed. Creatinine is elevated up to 2.8 and BUN of 70. Low sodium of 134. Old records have been reviewed. IMAGING STUDIES: Reviewed. PROBLEMS: This patient is admitted with intractable hiccups. Has shortness of breath with acute on chronic renal failure. The patient is suspected to have urinary tract infection. The patient has some abdominal distention due to fluid retention. The patient has congestive heart failure with acute on chronic congestive heart failure, systolic heart failure with underlying chronic kidney disease. History of cerebrovascular accident. The patient has history of inferior vena cava filter placement. The patient is apparently legally blind. PLAN: * The patient is followed up. * The patient will get CT abdomen. * Contrast should be avoided. * The patient will get Nephro-Pura 1 a day. * All the labs, x-rays were personally reviewed and interpreted. * The patient may need further GI workup. * I have discussed with other team physician. * Old and external records were reviewed in detail. * IV Dilaudid 0.5 q. 6 can be used for pain. The patient has previous IVC filter, diverticulitis, vitreous hemorrhage and multiple other comorbidities. * Nonsteroidal drug and other nephrotoxics to be avoided. We have discussed with other team members. We will continue monitoring. We will follow up closely. * Condition is critical, guarded. Thank you for this challenging consultation. TID: [id number] RECEIPT: [id number]
--- NOTE | 2024-08-27 03:31 | EKG ---
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
[2024-08-27 04:19] LABS: BASOPHILS # (AUTO) 0.02 K/uL (0.00-0.20); BASOPHILS % (AUTO) 0.2 % (0.0-5.0); EOSINOPHILS # (AUTO) 0.38 K/uL (0.00-0.70); EOSINOPHILS % (AUTO) 3.2 % (0.0-8.0); HEMATOCRIT 33.7 % (42-54); IMMATURE GRANULOCYTE ABSOLUTE 0.06 K/uL (0-1); LYMPHOCYTES # (AUTO) 0.7 K/uL (1.0-4.8); LYMPHOCYTES % (AUTO) 6.2 % (21.0-51.0); MEAN CORPUSCULAR HEMOGLOBIN 27.4 pg (27.0-33.0); MEAN CORPUSCULAR HGB CONC 33.2 g/dL (32.0-36.0); MEAN CORPUSCULAR VOLUME 82.4 fL (79-99); MONOCYTES # (AUTO) 0.9 K/uL (0.1-1.0); MONOCYTES % (AUTO) 7.8 % (3.0-13.0); NEUTROPHILS # (AUTO) 9.8 K/uL (1.8-7.7); NEUTROPHILS % (AUTO) 82.1 % (40.0-77.0); PLATELET COUNT (AUTO) 192 K/uL (130-400); RED BLOOD CELL COUNT(AUTO) 4.09 MIL/uL (4.50-6.20); RED CELL DISTRIBUTION WIDTH 20.8 % (11.0-15.5); WHITE BLOOD COUNT (AUTO) 11.9 K/uL (4.8-10.8)
[2024-08-27 05:08] LABS: ALBUMIN 2.3 g/dL (3.5-5.0); BILIRUBIN,TOTAL 1.7 mg/dL (0.2-1.0); CREATININE 2.4 mg/dL (0.5-1.3); PHOSPHORUS 3.2 mg/dL (2.5-4.9); POTASSIUM 3.3 mmol/L (3.5-5.1); TOTAL PROTEIN, SERUM 6.8 g/dL (6.0-8.3)
[2024-08-27] MEDS: cefTRIAXone 1G VIAL IVPB SCH (09:55)
[2024-08-27] MEDS ORDERED: NITROGLYCERIN 0.4 MG SL TAB SL SCH (10:30)
[2024-08-27] MEDS: PoTASSium chloRIDE 20MEQ ER 20 MEQ ERTAB PO ONE (12:41)
--- NOTE | 2024-08-27 13:00 | NUR ---
DR Ellie Tolentino at bedside and Dr Coyle at bedside.
--- NOTE | 2024-08-27 13:18 | PN ---
[facility] PROGRESS NOTE Date of Service: Aug 27, 2024 Time of Service: 13:01 SUBJECTIVE: [64-year-old male with history of diabetes mellitus type 2, hypertension, hyperlipidemia, CKD, CVA, CAD history of heart failure with the EF of less than 20 person, history of diastolic dysfunction present to the hospital hiccups. ] REVIEW OF SYSTEMS CONSTITUTIONAL: Denies fevers, chills, or night sweats. No unintentional weight loss reported. NEUROLOGICAL: Denies headache, amaurosis fugax, motor weakness, sensory deficit, vertigo/spinning sensation, gait abnormalities, or tremors. ENT: No hearing loss, otalgia, otorrhea, rhinitis, rhinorrhea, hoarseness, or sore throat. CARDIOVASCULAR: Denies any exertional angina, dyspnea on exertion, orthopnea, paroxysmal nocturnal dyspnea, palpitations, life-threatening arrhythmias, claudication. PULMONARY: Denies any shortness of breath, cough, phlegm/sputum, hemoptysis, pleuritic chest pain. SLEEP: Denies morning headaches, daytime somnolence or napping. Denies difficulty falling asleep, staying asleep, waking from sleep. Denies knowledge of snoring. GASTROINTESTINAL: Positive for hiccups, abdominal distention, decreased appetite, nausea, vomiting. I have denied any hematochezia, melena, hematochezia GENITOURINARY: Denies frequency, urgency, nocturia, hematuria or incontinence (Storage/Irritative symptoms.) Low urinary stream, straining to void, urinary intermittency or hesitancy, splitting of the voiding stream, terminal dribbling. ENDOCRINOLOGIC: Denies polyuria, polydipsia, polyphagia or heat/cold intoler ances. HEMATOLOGIC: Denies thrombophilia/previous clots, or coagulopathy/bleeding disorders. ONCOLOGIC: Denies personal history of malignancy. PSYCHIATRIC: Denies any suicidal or homicidal ideation. Denies hallucinations. PHYSICAL EXAM GENERAL APPEARANCE: The patient is awake, alert, and oriented, in no acute cardiopulmonary distress. NEUROLOGICAL: Cranial nerves II-XII grossly intact. Motor is 5/5 in bilateral upper and lower extremities proximal to distal. No sensory deficits. HEENT: Face is symmetric. Pupils are equal and reactive. Extraocular movements are intact. NECK: Supple. No JVD. No thyromegaly. No submental, submandibular, pre- /postauricular, occipital or supraclavicular lymphadenopathy. CHEST: Normal chest expansion. No Telemetry. LUNGS: Absence of any rales, rhonchi or any wheezing. CARDIOVASCULAR: Regular. S1 and S2 normal. No appreciable rubs, murmurs or gallops. ABDOMEN: Abdomen is distended. The abdomen is soft to palpation. Bowel sounds are hypoactive : Deferred. No Guillermo. EXTREMITIES: 1+ pitting edema in the lower extremity and not cyanotic. No clubbing. Good capillary refill. SKIN: No skin breakdown. Vital Signs (last 8hr) Date Time Temp Pulse Resp B/P (MAP) Pulse Ox O2 Delivery O2 Flow Rate FiO2 08/27/24 10:30 93 20 113/80 99 Room Air* 0 21 08/27/24 05:42 90 17 112/65 Room Air* 0 21 LABS: Laboratory: Test 08/27/24 08:23 08/27/24 06:37 08/27/24 04:12 08/26/24 18:40 Range/Units Whole Blood Glucose 186 H 70-110 MG/DL Troponin I High Sensitivity 573 *H 4-75 ng/L White Blood Count 11.9 #H 4.8-10.8 K/uL Red Blood Count 4.09 L 4.50-6.20 MIL/uL Hemoglobin 11.2 L 14.0-18.0 g/dL Hematocrit 33.7 L 42-54 % Mean Corpuscular Volume 82.4 79-99 fL Mean Corpuscular Hemoglobin 27.4 27.0-33.0 pg Mean Corpuscular Hemoglobin Concent 33.2 32.0-36.0 g/dL Red Cell Distribution Width 20.8 H 11.0-15.5 % Platelet Count 192 130-400 K/uL Mean Platelet Volume 9.9 7.5-10.5 fL Immature Granulocyte % (Auto) 0.5 0-1 % Neutrophils (%) (Auto) 82.1 H 40.0-77.0 % Lymphocytes (%) (Auto) 6.2 L 21.0-51.0 % Monocytes (%) (Auto) 7.8 3.0-13.0 % Eosinophils (%) (Auto) 3.2 0.0-8.0 % Basophils (%) (Auto) 0.2 0.0-5.0 % Neutrophils # (Auto) 9.8 H 1.8-7.7 K/uL Lymphocytes # (Auto) 0.7 L 1.0-4.8 K/uL Monocytes # (Auto) 0.9 0.1-1.0 K/uL Eosinophils # (Auto) 0.38 0.00-0.70 K/uL Basophils # (Auto) 0.02 0.00-0.20 K/uL Absolute Immature Granulocyte (auto 0.06 0-1 K/uL Nucleated Red Blood Cells 0.0 0.0-0.19 % Sodium Level 138 136-145 mmol/L Potassium Level 3.3 L 3.5-5.1 mmol/L Chloride Level 100 L 101-111 mmol/L Carbon Dioxide Level 32 21-32 mmol/L Blood Urea Nitrogen 66 H 7-18 mg/dL Creatinine 2.4 H 0.5-1.3 mg/dL Glomerular Filtration Rate Calc 30 >90 mL/min Random Glucose 193 H 70-105 mg/dL Total Calcium 8.6 8.5-10.1 mg/dL Phosphorus Level 3.2 2.5-4.9 mg/dL Magnesium Level 2.00 1.80-2.40 mg/dL Total Bilirubin 1.7 H 0.2-1.0 mg/dL Aspartate Amino Transf (AST/SGOT) 35 10-37 U/L Alanine Aminotransferase (ALT/SGPT) 28 12-78 U/L Alkaline Phosphatase 200 H 50-136 U/L Total Protein 6.8 6.0-8.3 g/dL Albumin 2.3 L 3.5-5.0 g/dL Influenza Type A Antigen Negative For Type A NEGATIVE Influenza Type B Antigen Negative For Type B NEGATIVE SARS-CoV-2, RNA, NAAT NEGATIVE SARS CoV-2 NEGATIVE Test 08/26/24 18:15 08/26/24 12:13 08/26/24 11:32 Range/Units Lactic Acid Level 2.9 H 0.8-2.5 mmol/L Urine Color YELLOW YELLOW Urine Appearance HAZY CLEAR Urine pH 5.5 5.0-8.0 Urine Specific [place] 1.018 1.001-1.031 Urine Protein 200 H NEGATIVE mg/dL Urine Glucose (UA) 70 H NEGATIVE mg/dL Urine Ketones NEGATIVE NEGATIVE mg/dL Urine Occult Blood SMALL H NEGATIVE Urine Nitrate NEGATIVE NEGATIVE Urine Bilirubin NEGATIVE NEGATIVE mg/dL Urine Urobilinogen 4.0 H 0.2-1.0 mg/dL Urine Leukocyte Esterase 250 H NEGATIVE [place]/uL Urine RBC 6-10 H 0-1 /HPF Urine WBC 51-100 H 0-1 /HPF Urine Squamous Epithelial Cells RARE 0-2 /HPF Urine Bacteria RARE None Seen /HPF Urine Hyaline Casts 2-5 H 0-1 /LPF /LPF White Cell Morphology Comment See comments Red Blood Cell Morphology See comments B-Type Natriuretic Peptide 4690 H 0-100 pg/mL Current Medications Medications (Trade) Dose Ordered Sig/Anjelica Route PRN Reason Start Time Stop Time Status Last Admin Dose Admin Aspirin (Aspirin 81mg Chew Tab) 81 mg DAILY PO 08/28/24 09:00 09/27/24 08:59 Atorvastatin Calcium (LIPItor 20MG) 20 mg DAILY PO 08/28/24 09:00 09/27/24 08:59 Bumetanide (Bumex 1mg Tab) 1 mg BID PO 08/27/24 21:00 09/26/24 20:59 Ceftriaxone Sodium (ROCEphine 1G INJ) 1 gm Q24H IVPB 08/27/24 09:00 09/06/24 08:59 08/27/24 09:55 1 GM Chlorpromazine HCl (ThorAZINE 25MG TAB) 50 mg ONCE PO 08/26/24 14:30 09/25/24 14:29 08/26/24 14:53 50 MG Dobutamine HCl/ Dextrose 250 ml @ 0 mls/hr PROTOCOL IV 08/27/24 10:30 09/26/24 10:29 Famotidine (Pepcid 20mg Vial) 20 mg Q24H IV 08/26/24 21:00 09/25/24 20:59 08/26/24 21:26 20 MG Latanoprost (Xalatan) 1 DROP OP HS HS OP 08/27/24 21:00 09/26/24 20:59 Levothyroxine Sodium (SYNTHroid 50MCG TAB) 50 mcg SYN PO 08/28/24 06:30 09/27/24 06:29 Nitroglycerin (Nitrostat) 0.4 mg AD SL 08/27/24 10:30 09/26/24 10:29 Tamsulosin HCl (FloMAX) 0.4 mg DAILY PO 08/28/24 09:00 09/27/24 08:59 DIAGNOSTICS / RADIOLOGY: [ ] ASSESSMENT: Intractable hiccups BUN Bowel obstruction rule out Suspected UTI Acute on chronic CHF exacerbation with systolic and diastolic dysfunction with EF of less than 20% CKD stage 4 Troponin elevation likely in setting of type 2 LA History of CVA History of diverticular nobody The history of IVC 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 Reviewed CT abdomen noted moderate amount of free fluid in the abdomen and pelvis, etiology not identified. Edema in the anterior abdominal wall consistent with anasarca. He will continue with diuretics Bumex1 mg p.o. b.i.d. Patient is on clear liquid diet, advanced as tolerated Continue with Rocephin IV Appreciate recommendations from Cardiology, we will follow his recommendations Continue Nephrology recommendations We will repeat labs tomorrow GI and DVT prophylaxis Patient was seen and examined in the emergency department, above plans formulated ATTESTATION BY PHYSICIAN I have seen and examined the patient. I reviewed the documentation, medical decision making, and treatment plan as noted by the mid-level provider above. I agree with the findings and plan of care. GARRY GUERRA MD, [facility] Aug 27, 2024 13:18
[2024-08-27] MEDS: BUMETANIDE 1 MG TAB PO SCH (14:00)
[2024-08-27] MEDS: doBUTamine 250MG/D5 250ML 250 ML IV SCH (14:10)
--- NOTE | 2024-08-27 14:13 | PN ---
NEPHROLOGY PROGRESS NOTE Date/Time Patient Seen: Aug 27, 2024 SUBJECTIVE: This is a 64 year old male with a past medical history of Diabetes mellitus type2, hypertension, CKD, history of CVA, diastolic dysfunction, and CHF with the EF of less than 20% He presented to the emergency department with a chief complaint of hiccups He has a recent hospital admission for fluid overload, CHF with the EF of 20%, with dobutamine and was discharged on 08/22 We have been consulted for renal failure Renal function remains elevated Electrolytes are stable. Hemoglobin is stable He has been started on Bumex1 mg p.o. BID. Continue to be followed by cardiology. He was seen in the emergency room, in no acute distress No family at the bedside Progress remains guarded REVIEW OF SYSTEMS: GENERAL: Positive for hiccups NEUROLOGIC: Negative for any blurry vision, blind spots, double vision, facial asymmetry, dysphagia, dysarthria, hemiparesis, hemisensory deficits, vertigo, ataxia. HEENT: Negative for any head trauma, neck trauma, neck stiffness, photophobia, phonophobia, sinusitis, rhinitis. CARDIAC: Negative for any chest pain, dyspnea on exertion, paroxysmal nocturnal dyspnea, peripheral edema. PULMONARY: Negative for any shortness of breath, wheezing, COPD, or TB exposure. GASTROINTESTINAL: Negative for any abdominal pain, nausea, vomiting, bright red blood per rectum, melena. GENITOURINARY: Negative for any dysuria, hematuria, incontinence. INTEGUMENTARY: Negative for any rashes, cuts, insect bites. RHEUMATOLOGIC: Negative for any joint pains, photosensitive rashes, history of vasculitis or kidney problems. HEMATOLOGIC: Negative for any abnormal bruising, frequent infections or bleeding. Vital Signs (last 8hr) Date Time Temp Pulse Resp B/P (MAP) Pulse Ox O2 Delivery O2 Flow Rate FiO2 08/27/24 10:30 93 20 113/80 99 Room Air* 0 21 PHYSICAL EXAM: GENERAL: Alert and oriented x 3. No acute distress. Well-nourished. EYES: EOMI. Anicteric. HENT: Moist mucous membranes. No scleral icterus. No cervical lymphadenopathy. LUNGS: Clear to auscultation bilaterally. No accessory muscle use. CARDIOVASCULAR: Regular rate and rhythm. No murmur. No JVD. ABDOMEN: Soft, non-tender and non-distended. No palpable masses. EXTREMITIES: No edema. Non-tender. SKIN: No rashes or lesions. Warm. NEUROLOGIC: No focal neurological deficits. CN II-XII grossly intact, but not individually tested. PSYCHIATRIC: Cooperative. Appropriate mood and affect. Current Medications Medications (Trade) Dose Ordered Sig/Anjelica Route PRN Reason Start Time Stop Time Status Last Admin Dose Admin Aspirin (Aspirin 81mg Chew Tab) 81 mg DAILY PO 08/28/24 09:00 09/27/24 08:59 Atorvastatin Calcium (LIPItor 20MG) 20 mg DAILY PO 08/28/24 09:00 09/27/24 08:59 Bumetanide (Bumex 1mg Tab) 1 mg BID PO 08/27/24 14:00 09/26/24 13:59 Bumetanide (Bumex 1mg Tab) 1 mg BID PO 08/27/24 21:00 08/27/24 13:16 DC Ceftriaxone Sodium (ROCEphine 1G INJ) 1 gm Q24H IVPB 08/27/24 09:00 09/06/24 08:59 08/27/24 09:55 1 GM Chlorpromazine HCl (ThorAZINE 25MG TAB) 50 mg ONCE PO 08/26/24 14:30 09/25/24 14:29 08/26/24 14:53 50 MG Dobutamine HCl/ Dextrose 250 ml @ 0 mls/hr PROTOCOL IV 08/27/24 10:30 09/26/24 10:29 Famotidine (Pepcid 20mg Vial) 20 mg Q24H IV 08/26/24 21:00 09/25/24 20:59 08/26/24 21:26 20 MG Latanoprost (Xalatan) 1 DROP OP HS HS OP 08/27/24 21:00 09/26/24 20:59 Levothyroxine Sodium (SYNTHroid 50MCG TAB) 50 mcg SYN PO 08/28/24 06:30 09/27/24 06:29 Nitroglycerin (Nitrostat) 0.4 mg AD SL 08/27/24 10:30 09/26/24 10:29 Tamsulosin HCl (FloMAX) 0.4 mg DAILY PO 08/28/24 09:00 09/27/24 08:59 Vitamin B Complex/ Vit C/Folic Acid (Nephrovite Tablet) 1 cap DAILY PO 08/28/24 09:00 10/05/24 09:00 LABORATORY: [ ] Hematology Labs: Test 08/27/24 04:12 08/26/24 11:32 Range/Units White Blood Count 11.9 #H 4.8-10.8 K/uL Red Blood Count 4.09 L 4.50-6.20 MIL/uL Hemoglobin 11.2 L 14.0-18.0 g/dL Hematocrit 33.7 L 42-54 % Mean Corpuscular Volume 82.4 79-99 fL Mean Corpuscular Hemoglobin 27.4 27.0-33.0 pg Mean Corpuscular Hemoglobin Concent 33.2 32.0-36.0 g/dL Red Cell Distribution Width 20.8 H 11.0-15.5 % Platelet Count 192 130-400 K/uL Mean Platelet Volume 9.9 7.5-10.5 fL Immature Granulocyte % (Auto) 0.5 0-1 % Neutrophils (%) (Auto) 82.1 H 40.0-77.0 % Lymphocytes (%) (Auto) 6.2 L 21.0-51.0 % Monocytes (%) (Auto) 7.8 3.0-13.0 % Eosinophils (%) (Auto) 3.2 0.0-8.0 % Basophils (%) (Auto) 0.2 0.0-5.0 % Neutrophils # (Auto) 9.8 H 1.8-7.7 K/uL Lymphocytes # (Auto) 0.7 L 1.0-4.8 K/uL Monocytes # (Auto) 0.9 0.1-1.0 K/uL Eosinophils # (Auto) 0.38 0.00-0.70 K/uL Basophils # (Auto) 0.02 0.00-0.20 K/uL Absolute Immature Granulocyte (auto 0.06 0-1 K/uL Nucleated Red Blood Cells 0.0 0.0-0.19 % White Cell Morphology Comment See comments Red Blood Cell Morphology See comments Chemistry Labs: Test 08/27/24 08:23 08/27/24 06:37 08/27/24 04:12 08/26/24 18:15 Range/Units Whole Blood Glucose 186 H 70-110 MG/DL Troponin I High Sensitivity 573 *H 4-75 ng/L Sodium Level 138 136-145 mmol/L Potassium Level 3.3 L 3.5-5.1 mmol/L Chloride Level 100 L 101-111 mmol/L Carbon Dioxide Level 32 21-32 mmol/L Blood Urea Nitrogen 66 H 7-18 mg/dL Creatinine 2.4 H 0.5-1.3 mg/dL Glomerular Filtration Rate Calc 30 >90 mL/min Random Glucose 193 H 70-105 mg/dL Total Calcium 8.6 8.5-10.1 mg/dL Phosphorus Level 3.2 2.5-4.9 mg/dL Magnesium Level 2.00 1.80-2.40 mg/dL Total Bilirubin 1.7 H 0.2-1.0 mg/dL Aspartate Amino Transf (AST/SGOT) 35 10-37 U/L Alanine Aminotransferase (ALT/SGPT) 28 12-78 U/L Alkaline Phosphatase 200 H 50-136 U/L Total Protein 6.8 6.0-8.3 g/dL Albumin 2.3 L 3.5-5.0 g/dL Lactic Acid Level 2.9 H 0.8-2.5 mmol/L Test 08/26/24 11:32 Range/Units B-Type Natriuretic Peptide 4690 H 0-100 pg/mL DIAGNOSTICS / RADIOLOGY: REASON: intractable hiccups, rule out obstrcution, abdominal distention ORDERING PHYSICIAN: CHARAN WEEMS MD PROCEDURE: ABD PEL WO - CT ABDOMEN/PELVIS W/O CONTRAST CT ABDOMEN/PELVIS W/O CONTRAST REASON: intractable hiccups, rule out obstrcution, abdominal distention COMPARISON: None. FINDINGS: Lung bases are clear. There are no focal liver lesions. There is bilateral perinephric stranding, often a reflection of chronic renal disease. There is no mass, stone or hydronephrosis.. Spleen and pancreas appear unremarkable. The gallbladder appears normal as well. There is mild sigmoid diverticulosis without evidence of diverticulitis. Bowel loops appear otherwise unremarkable.. The appendix was not separately identified. There is no evidence of obstruction. There is no evidence of free intraperitoneal air. There is a small to moderate volume of free fluid around the liver and spleen as well as in the pelvic cul-de-sac, etiology not identified. There are no focal fluid collections. Aorta and retroperitoneum appear normal as do pelvic soft tissue structures. There is edema in the anterior abdominal wall consistent with anasarca.. Osseous structures appear unremarkable. IMPRESSION: 1. Moderate amount of free fluid in the abdomen and pelvis, etiology not identified. 2. Edema in the anterior abdominal wall consistent with anasarca. 3. No evidence of bowel obstruction. CT was performed with one or more following dose reduction techniques: automated exposure control, adjustment of the mA and kv according to patient's size, or use of a iterative reconstruction technique. DICTATED BY: CAMDEN WAGNER MD DATE: 08/26/24 1558 REASON: SHORTNESS A BREATH, HISTORY OF CHF ORDERING PHYSICIAN: CRAIG LI NP PROCEDURE: CXR1VW - CHEST 1VW CHEST 1VW HISTORY: Shortness of breath COMPARISON: 08/14/2024 FINDINGS: A frontal projection of the chest was obtained. Mild bilateral pulmonary infiltrates are seen may be related to mild pulmonary vascular congestion with possible superimposed pneumonitis. The heart is enlarged. Right pleural effusion is seen with compressive atelectasis. Degenerative changes are seen. No evidence of aortic calcification is seen. IMPRESSION: 1. Mild bilateral pulmonary infiltrates are seen may be related to mild pulmonary vascular congestion with possible superimposed pneumonitis. DICTATED BY: BETH CORRIGAN MD DATE: 08/26/24 1222 ASSESSMENT: Acute on Chronic renal failure Cardiorenal syndrome Anasarca Uncontrolled Diabetes mellitus type2 Acute on chronic CHF with LVEF 20% stage III diastolic dysfunction Hypertension History of CVA Diabetic retinopathy and neuropathy S/p post IVC filter placement secondary to DVT and contraindication to anti coagulation. PLAN: Labs, diagnostic, radiologic exams reviewed and interpreted by myself and supervising physician. We have reviewed external records in detail Continue with Bumex 1 mg p.o. b.i.d.. Pending cardiology recommendations He was counseled on the importance of 1.5 L fluid restriction Require close monitoring of renal function and electrolytes Renal diabetic diet Monitor blood pressure adjust medication doses as needed Avoid hypotensive episodes May use Dilaudid 0.5 mg IV every 6 hours as needed for severe pain Monitor blood sugars Strict intake, output, and daily weight should be monitored Please renally adjust medications Avoid nephrotoxic and nonsteroidal drugs Avoid contrast if possible Will continue to monitor renal function, anemia, electrolytes Treatment plan discussed with patient Questions were answered We have discussed with the other team physicians in detail about the care plan We will continue to monitor the patient closely Thank you for allowing us to participate in the care of this patient ATTESTATION BY PHYSICIAN I have seen and examined the patient. I reviewed the documentation, medical decision making, and treatment plan as noted by the mid-level provider above. I agree with the findings and plan of care. DENZEL ACKERMAN MD, [facility] Aug 27, 2024 14:13
--- NOTE | 2024-08-27 15:26 | NUR ---
DCP: HOME Pt states he lives at home with his mother and brother Abdi Goldberg [id number]. Pt states he was just approved for SSI and should be getting Medicaid any time. Pt states he is legally blind and is requiring open heart surgery, which he hopes to get this week. Pt asked about hospice services and qualifications. Sw provided information. Pt states he is tired of being sick, he knows open heart surgery is a risk and he is willing to take it. He has no quality of life at this time. Pt has no PCP, waiting on Medicaid to establish. Pt no longer under [facility] for his Bipolar, anxiety and depression. Pt has a cane he uses PRN. DCP to home. Pt also requesting hospital call his probation office , he will miss appt tomorrow and needs verification that he is admitted. Addendum: 08/27/24 at 1526 by ANJALI RINCON SS Amended: Links added.
--- NOTE | 2024-08-27 20:41 | CONS ---
CONSULT NOTE: Reason for consult: CHF HPI/story at presentation: This is a pleasant gentleman with past medical history as per present with complaints of shortness of breath, lower extremity meniscal edema. He has known history of multivessel coronary disease, currently managed medically because patient refused bypass surgery because he does not want to be on anticoagulation in the perioperative. Patient also had elevated troponins during hospitalization (anticoagulation for this as well because of issues with retina and is worried about losing more vision. No active issues with chest pain at this time. On diuresis and failed outpatient diuretic therapy. Subjective: 08/27/24 sob, abdominal distention Past medical history: See below Allergies, Meds See chart Review of systems Review of Systems Constitutional: Negative for chills and fever. HENT: Negative for ear discharge and ear pain. Eyes: Negative for photophobia and discharge. Respiratory: Negative for cough, sputum production and stridor. Cardiovascular: Negative for chest pain and palpitations. Gastrointestinal: Negative for diarrhea and vomiting. Genitourinary: Negative for frequency. Musculoskeletal: Negative for myalgias. Skin: Negative for rash. Neurological: Negative for focal weakness and seizures. Endo/Heme/Allergies: Negative for polydipsia. Psychiatric/Behavioral: Negative for hallucinations. Vitals see chart PHYSICAL EXAMINATION GENERAL: The patient is alert and oriented*3 HEENT: Nonicteric sclerae, non traumatic HEART: Regular rate and rhythm with no murmurs LUNGS: Clear to auscultation bilaterally ABDOMEN: No acute issues, non tender GENITAL, RECTAL: deferred SKIN: No rash NEUROLOGIC: NFND EXTREMITIES:EDEMA 07/2024 ASSESSMENT EXACERBATION OF CHF, CARDIOMYOPATHY Noncompliant with diuretics at home History of ischemic cardiomyopathy MVCAD on cath 07/2024 Stress test with infarction pattern, 02/2024 Ejection fraction of 15 to 20%, 06/2024 On diuresis with Bumex, 06/2024 DVT diagnosed 07/2024 s/p IVC filter NSTEMI Initial troponin of 1600, trending down HEMATURIA Moderate hematuria, 06/2024 CHRONIC KIDNEY DISEASE Stage III 3.4at presentation Creatinine at discharge from hospital, 06/2024 was 2.2 HYPERTENSION HYPERLIPIDEMIA DIABETES, TOBACCO USE CORE MEASURES Not on guideline directed medical therapy for cardiomyopathy given renal dysfunction OTHER MEDICAL PROBLEMS Anxiety disorder Diabetic neuropathy PLAN 08/27/2024 Will restart dobutamine, restart diuretics. This was done earlier today around 11 AM. No active chest pain, although, abdominal distention thought to be related to fluid overload, anasarca in setting of underlying cardiomyopathy. Compliant with medications at home. Renal function better at this admission compared to discharge although, likely improved in the absence of diuretics. Patient at this time, wants to consider proceeding with surgery. Will get CVT surgery on board. ATTESTATION I was involved substantially in the care of this patient Number and complexity of problems addressed 1 acute illness with severe exacerbation Amount and or complexity of data Review of prior external note(s) from each unique source - Number 2+_ Ordering of each unique test - Number 0 Review of the result(s) of each unique test - Number 2+ Assessment requiring an independent historian(s) No Independent interpretation of test performed by another MD/QHCP/appropriate source (not separately reported) No Discussion of management or test interpretation with external MD/QHCP/appropriate source (not separately reported) No Risk status (cardiac, billing related) GUSTAVO Gaines MD Aug 27, 2024 20:41
[2024-08-27] MEDS: LATANOPROST 2.5 ML DROPS OP SCH (21:00)
[2024-08-27] MEDS ORDERED: BUMETANIDE 1 MG TAB PO SCH (21:00)
[2024-08-28] MEDS: levoTHYROxine 50 MCG TABLET PO SCH (06:46)
[2024-08-28 07:07] LABS: HEMATOCRIT 35.4 % (42-54); MEAN CORPUSCULAR HEMOGLOBIN 27.1 pg (27.0-33.0); MEAN CORPUSCULAR HGB CONC 32.5 g/dL (32.0-36.0); MEAN CORPUSCULAR VOLUME 83.3 fL (79-99); RED BLOOD CELL COUNT(AUTO) 4.25 MIL/uL (4.50-6.20); RED CELL DISTRIBUTION WIDTH 21.1 % (11.0-15.5); WHITE BLOOD COUNT (AUTO) 6.8 K/uL (4.8-10.8)
[2024-08-28 07:20] LABS: ALBUMIN 2.3 g/dL (3.5-5.0); BILIRUBIN,TOTAL 1.8 mg/dL (0.2-1.0); CREATININE 1.9 mg/dL (0.5-1.3); MAGNESIUM 1.8 mg/dL (1.80-2.40)
[2024-08-28 07:23] LABS: POTASSIUM 3.1 mmol/L (3.5-5.1)
[2024-08-28] MEDS: tamSULOsin HCL 0.4 MG CAP.ER.24H PO SCH (09:49)
[2024-08-28] MEDS: atorVAStatin 20 MG TABLET PO SCH (09:49)
[2024-08-28] MEDS: ASPIRIN 81MG CHEW TAB PO SCH (09:49)
[2024-08-28] MEDS: Vitamin B Complex/Vit C/Folic Acid PO SCH (09:51)
--- NOTE | 2024-08-28 10:51 | NUR ---
DCP: HOME WITH HOSPICE Reymundo informed by Dr Tolentino that pt s waiting hospice, since he is not a cadidate for the heart surgery. SW met with pt and discussed hospice. Pt has [employer] insurance and hospice would need to run to see if it covers hospice. If it does not, pt would torito. Reymundo made referral to [facility] [facility] for possible acceptance. Waiting for response Sw made referral to Bill [id number]. Office fax [phone]
--- NOTE | 2024-08-28 14:55 | PN ---
NEPHROLOGY PROGRESS NOTE Date/Time Patient Seen: Aug 28, 2024 SUBJECTIVE: This is a 64 year old male with a past medical history of Diabetes mellitus type2, hypertension, CKD, history of CVA, diastolic dysfunction, and CHF with the EF of less than 20% He presented to the emergency department with a chief complaint of hiccups He has a recent hospital admission for fluid overload, CHF with the EF of 20%, with dobutamine and was discharged on 08/22 We have been consulted for renal failure Renal function remains elevated Electrolytes are stable. Hemoglobin is stable He has been started on Bumex1 mg p.o. BID. Continue to be followed by cardiology. CV surgery has been consulted As per patient, he was told he is not a candidate for surgery and would like to proceed with hospice. He was seen in the emergency room, in no acute distress No family at the bedside Progress remains guarded REVIEW OF SYSTEMS: GENERAL: Positive for hiccups NEUROLOGIC: Negative for any blurry vision, blind spots, double vision, facial asymmetry, dysphagia, dysarthria, hemiparesis, hemisensory deficits, vertigo, ataxia. HEENT: Negative for any head trauma, neck trauma, neck stiffness, photophobia, phonophobia, sinusitis, rhinitis. CARDIAC: Negative for any chest pain, dyspnea on exertion, paroxysmal nocturnal dyspnea, peripheral edema. PULMONARY: Negative for any shortness of breath, wheezing, COPD, or TB exposure. GASTROINTESTINAL: Negative for any abdominal pain, nausea, vomiting, bright red blood per rectum, melena. GENITOURINARY: Negative for any dysuria, hematuria, incontinence. INTEGUMENTARY: Negative for any rashes, cuts, insect bites. RHEUMATOLOGIC: Negative for any joint pains, photosensitive rashes, history of vasculitis or kidney problems. HEMATOLOGIC: Negative for any abnormal bruising, frequent infections or bleeding. Vital Signs (last 8hr) Date Time Temp Pulse Resp B/P (MAP) Pulse Ox O2 Delivery O2 Flow Rate FiO2 08/27/24 10:30 93 20 113/80 99 Room Air* 0 21 PHYSICAL EXAM: GENERAL: Alert and oriented x 3. No acute distress. Well-nourished. EYES: EOMI. Anicteric. HENT: Moist mucous membranes. No scleral icterus. No cervical lymphadenopathy. LUNGS: Clear to auscultation bilaterally. No accessory muscle use. CARDIOVASCULAR: Regular rate and rhythm. No murmur. No JVD. ABDOMEN: Soft, non-tender and non-distended. No palpable masses. EXTREMITIES: No edema. Non-tender. SKIN: No rashes or lesions. Warm. NEUROLOGIC: No focal neurological deficits. CN II-XII grossly intact, but not individually tested. PSYCHIATRIC: Cooperative. Appropriate mood and affect. Current Medications Medications (Trade) Dose Ordered Sig/Anjelica Route PRN Reason Start Time Stop Time Status Last Admin Dose Admin Aspirin (Aspirin 81mg Chew Tab) 81 mg DAILY PO 08/28/24 09:00 09/27/24 08:59 Atorvastatin Calcium (LIPItor 20MG) 20 mg DAILY PO 08/28/24 09:00 09/27/24 08:59 Bumetanide (Bumex 1mg Tab) 1 mg BID PO 08/27/24 14:00 09/26/24 13:59 Bumetanide (Bumex 1mg Tab) 1 mg BID PO 08/27/24 21:00 08/27/24 13:16 DC Ceftriaxone Sodium (ROCEphine 1G INJ) 1 gm Q24H IVPB 08/27/24 09:00 09/06/24 08:59 08/27/24 09:55 1 GM Chlorpromazine HCl (ThorAZINE 25MG TAB) 50 mg ONCE PO 08/26/24 14:30 09/25/24 14:29 08/26/24 14:53 50 MG Dobutamine HCl/ Dextrose 250 ml @ 0 mls/hr PROTOCOL IV 08/27/24 10:30 09/26/24 10:29 Famotidine (Pepcid 20mg Vial) 20 mg Q24H IV 08/26/24 21:00 09/25/24 20:59 08/26/24 21:26 20 MG Latanoprost (Xalatan) 1 DROP OP HS HS OP 08/27/24 21:00 09/26/24 20:59 Levothyroxine Sodium (SYNTHroid 50MCG TAB) 50 mcg SYN PO 08/28/24 06:30 09/27/24 06:29 Nitroglycerin (Nitrostat) 0.4 mg AD SL 08/27/24 10:30 09/26/24 10:29 Tamsulosin HCl (FloMAX) 0.4 mg DAILY PO 08/28/24 09:00 09/27/24 08:59 Vitamin B Complex/ Vit C/Folic Acid (Nephrovite Tablet) 1 cap DAILY PO 08/28/24 09:00 10/05/24 09:00 LABORATORY: [ ] Hematology Labs: Test 08/28/24 05:38 08/27/24 04:12 Range/Units White Blood Count 6.8 4.8-10.8 K/uL Red Blood Count 4.25 L 4.50-6.20 MIL/uL Hemoglobin 11.5 L 14.0-18.0 g/dL Hematocrit 35.4 L 42-54 % Mean Corpuscular Volume 83.3 79-99 fL Mean Corpuscular Hemoglobin 27.1 27.0-33.0 pg Mean Corpuscular Hemoglobin Concent 32.5 32.0-36.0 g/dL Red Cell Distribution Width 21.1 H 11.0-15.5 % Platelet Count 215 130-400 K/uL Mean Platelet Volume 10.9 H 7.5-10.5 fL Nucleated Red Blood Cells 0.0 0.0-0.19 % Immature Granulocyte % (Auto) 0.5 0-1 % Neutrophils (%) (Auto) 82.1 H 40.0-77.0 % Lymphocytes (%) (Auto) 6.2 L 21.0-51.0 % Monocytes (%) (Auto) 7.8 3.0-13.0 % Eosinophils (%) (Auto) 3.2 0.0-8.0 % Basophils (%) (Auto) 0.2 0.0-5.0 % Neutrophils # (Auto) 9.8 H 1.8-7.7 K/uL Lymphocytes # (Auto) 0.7 L 1.0-4.8 K/uL Monocytes # (Auto) 0.9 0.1-1.0 K/uL Eosinophils # (Auto) 0.38 0.00-0.70 K/uL Basophils # (Auto) 0.02 0.00-0.20 K/uL Absolute Immature Granulocyte (auto 0.06 0-1 K/uL Chemistry Labs: Test 08/28/24 05:38 08/27/24 08:23 08/27/24 06:37 08/27/24 04:12 Range/Units Sodium Level 134 L 136-145 mmol/L Potassium Level 3.1 L 3.5-5.1 mmol/L Chloride Level 97 L 101-111 mmol/L Carbon Dioxide Level 31 21-32 mmol/L Blood Urea Nitrogen 51 H 7-18 mg/dL Creatinine 1.9 H 0.5-1.3 mg/dL Glomerular Filtration Rate Calc 39 >90 mL/min Random Glucose 201 H 70-105 mg/dL Total Calcium 8.5 8.5-10.1 mg/dL Magnesium Level 1.80 1.80-2.40 mg/dL Total Bilirubin 1.8 H 0.2-1.0 mg/dL Aspartate Amino Transf (AST/SGOT) 39 H 10-37 U/L Alanine Aminotransferase (ALT/SGPT) 27 12-78 U/L Alkaline Phosphatase 203 H 50-136 U/L Total Protein 7.0 6.0-8.3 g/dL Albumin 2.3 L 3.5-5.0 g/dL Whole Blood Glucose 186 H 70-110 MG/DL Troponin I High Sensitivity 573 *H 4-75 ng/L Phosphorus Level 3.2 2.5-4.9 mg/dL Test 08/26/24 18:15 Range/Units Lactic Acid Level 2.9 H 0.8-2.5 mmol/L DIAGNOSTICS / RADIOLOGY: REASON: intractable hiccups, rule out obstrcution, abdominal distention ORDERING PHYSICIAN: CHARAN WEEMS MD PROCEDURE: ABD PEL WO - CT ABDOMEN/PELVIS W/O CONTRAST CT ABDOMEN/PELVIS W/O CONTRAST REASON: intractable hiccups, rule out obstrcution, abdominal distention COMPARISON: None. FINDINGS: Lung bases are clear. There are no focal liver lesions. There is bilateral perinephric stranding, often a reflection of chronic renal disease. There is no mass, stone or hydronephrosis.. Spleen and pancreas appear unremarkable. The gallbladder appears normal as well. There is mild sigmoid diverticulosis without evidence of diverticulitis. Bowel loops appear otherwise unremarkable.. The appendix was not separately identified. There is no evidence of obstruction. There is no evidence of free intraperitoneal air. There is a small to moderate volume of free fluid around the liver and spleen as well as in the pelvic cul-de-sac, etiology not identified. There are no focal fluid collections. Aorta and retroperitoneum appear normal as do pelvic soft tissue structures. There is edema in the anterior abdominal wall consistent with anasarca.. Osseous structures appear unremarkable. IMPRESSION: 1. Moderate amount of free fluid in the abdomen and pelvis, etiology not identified. 2. Edema in the anterior abdominal wall consistent with anasarca. 3. No evidence of bowel obstruction. CT was performed with one or more following dose reduction techniques: automated exposure control, adjustment of the mA and kv according to patient's size, or use of a iterative reconstruction technique. DICTATED BY: CAMDEN WAGNER MD DATE: 08/26/24 1558 REASON: SHORTNESS A BREATH, HISTORY OF CHF ORDERING PHYSICIAN: CRAIG LI NP PROCEDURE: CXR1VW - CHEST 1VW CHEST 1VW HISTORY: Shortness of breath COMPARISON: 08/14/2024 FINDINGS: A frontal projection of the chest was obtained. Mild bilateral pulmonary infiltrates are seen may be related to mild pulmonary vascular congestion with possible superimposed pneumonitis. The heart is enlarged. Right pleural effusion is seen with compressive atelectasis. Degenerative changes are seen. No evidence of aortic calcification is seen. IMPRESSION: 1. Mild bilateral pulmonary infiltrates are seen may be related to mild pulmonary vascular congestion with possible superimposed pneumonitis. DICTATED BY: BETH CORRIGAN MD DATE: 08/26/24 1222 ASSESSMENT: Acute on Chronic renal failure Cardiorenal syndrome Anasarca Uncontrolled Diabetes mellitus type2 Acute on chronic CHF with LVEF 20% stage III diastolic dysfunction Hypertension History of CVA Diabetic retinopathy and neuropathy S/p post IVC filter placement secondary to DVT and contraindication to anticoagulation. PLAN: Labs, diagnostic, radiologic exams reviewed and interpreted by myself and supervising physician. We have reviewed external records in detail Continue with Bumex 1 mg p.o. b.i.d.. Patient would like to proceed with hospice, will defer to primary team and cardiology He was counseled on the importance of 1.5 L fluid restriction Require close monitoring of renal function and electrolytes Renal diabetic diet Monitor blood pressure adjust medication doses as needed Avoid hypotensive episodes May use Dilaudid 0.5 mg IV every 6 hours as needed for severe pain Monitor blood sugars Strict intake, output, and daily weight should be monitored Please renally adjust medications Avoid nephrotoxic and nonsteroidal drugs Avoid contrast if possible Will continue to monitor renal function, anemia, electrolytes Treatment plan discussed with patient Questions were answered We have discussed with the other team physicians in detail about the care plan We will continue to monitor the patient closely ATTESTATION BY PHYSICIAN I have seen and examined the patient. I reviewed the documentation, medical decision making, and treatment plan as noted by the mid-level provider above. I agree with the findings and plan of care. DENZEL ACKERMAN MD, [facility] Aug 28, 2024 14:55
[2024-08-28] MEDS ORDERED: LORazepam 0.5 MG TABLET PO ONE (18:00)
[2024-08-28] MEDS: hydrOXYzine 25 MG TABLET PO SCH (18:10)
--- NOTE | 2024-08-28 19:03 | PN ---
[facility] PROGRESS NOTE Date of Service: Aug 28, 2024 Time of Service: 18:59 SUBJECTIVE: 64-year-old male with history of diabetes mellitus type 2, hypertension, hyperlipidemia, CKD, CVA, CAD history of heart failure with the EF of less than 20 person, history of diastolic dysfunction present to the hospital hiccups. 08/28 patient seen at bedside, no acute events overnight. Patient was assessed by Cardiovascular surgery who does not believe he has a good candidate for bypass. Hospice was discussed with patient and he has agreed to pursue this option. Discussed with case management who states he will need a torito placements. We will continue to follow up with case management. Heart rate elevated, we will defer to Cardiology for adjustment of his medications. REVIEW OF SYSTEMS 12 point review of systems negative unless noted in HPI PHYSICAL EXAM GENERAL APPEARANCE: The patient is awake, alert, and oriented, in no acute cardiopulmonary distress. NEUROLOGICAL: Cranial nerves II-XII grossly intact. Motor is 5/5 in bilateral upper and lower extremities proximal to distal. No sensory deficits. HEENT: Face is symmetric. Pupils are equal and reactive. Extraocular movements are intact. NECK: Supple. No JVD. No thyromegaly. No submental, submandibular, pre- /postauricular, occipital or supraclavicular lymphadenopathy. CHEST: Normal chest expansion. No Telemetry. LUNGS: Absence of any rales, rhonchi or any wheezing. CARDIOVASCULAR: Regular. S1 and S2 normal. No appreciable rubs, murmurs or gallops. ABDOMEN: Abdomen is distended. The abdomen is soft to palpation. Bowel sounds are hypoactive : Deferred. No Guillermo. EXTREMITIES: 1+ pitting edema in the lower extremity and not cyanotic. No clubbing. Good capillary refill. SKIN: No skin breakdown. Vital Signs (last 8hr) Date Time Temp Pulse Resp B/P (MAP) Pulse Ox O2 Delivery O2 Flow Rate FiO2 08/28/24 18:15 98.4 120 16 124/83 98 Room Air* 0 21 08/28/24 12:15 98.4 103 16 114/80 Room Air* 0 21 LABS: Laboratory: Test 08/28/24 05:38 08/27/24 08:23 08/27/24 06:37 08/27/24 04:12 Range/Units White Blood Count 6.8 4.8-10.8 K/uL Red Blood Count 4.25 L 4.50-6.20 MIL/uL Hemoglobin 11.5 L 14.0-18.0 g/dL Hematocrit 35.4 L 42-54 % Mean Corpuscular Volume 83.3 79-99 fL Mean Corpuscular Hemoglobin 27.1 27.0-33.0 pg Mean Corpuscular Hemoglobin Concent 32.5 32.0-36.0 g/dL Red Cell Distribution Width 21.1 H 11.0-15.5 % Platelet Count 215 130-400 K/uL Mean Platelet Volume 10.9 H 7.5-10.5 fL Nucleated Red Blood Cells 0.0 0.0-0.19 % Sodium Level 134 L 136-145 mmol/L Potassium Level 3.1 L 3.5-5.1 mmol/L Chloride Level 97 L 101-111 mmol/L Carbon Dioxide Level 31 21-32 mmol/L Blood Urea Nitrogen 51 H 7-18 mg/dL Creatinine 1.9 H 0.5-1.3 mg/dL Glomerular Filtration Rate Calc 39 >90 mL/min Random Glucose 201 H 70-105 mg/dL Total Calcium 8.5 8.5-10.1 mg/dL Magnesium Level 1.80 1.80-2.40 mg/dL Total Bilirubin 1.8 H 0.2-1.0 mg/dL Aspartate Amino Transf (AST/SGOT) 39 H 10-37 U/L Alanine Aminotransferase (ALT/SGPT) 27 12-78 U/L Alkaline Phosphatase 203 H 50-136 U/L Total Protein 7.0 6.0-8.3 g/dL Albumin 2.3 L 3.5-5.0 g/dL Whole Blood Glucose 186 H 70-110 MG/DL Troponin I High Sensitivity 573 *H 4-75 ng/L Immature Granulocyte % (Auto) 0.5 0-1 % Neutrophils (%) (Auto) 82.1 H 40.0-77.0 % Lymphocytes (%) (Auto) 6.2 L 21.0-51.0 % Monocytes (%) (Auto) 7.8 3.0-13.0 % Eosinophils (%) (Auto) 3.2 0.0-8.0 % Basophils (%) (Auto) 0.2 0.0-5.0 % Neutrophils # (Auto) 9.8 H 1.8-7.7 K/uL Lymphocytes # (Auto) 0.7 L 1.0-4.8 K/uL Monocytes # (Auto) 0.9 0.1-1.0 K/uL Eosinophils # (Auto) 0.38 0.00-0.70 K/uL Basophils # (Auto) 0.02 0.00-0.20 K/uL Absolute Immature Granulocyte (auto 0.06 0-1 K/uL Phosphorus Level 3.2 2.5-4.9 mg/dL Current Medications Medications (Trade) Dose Ordered Sig/Anjelica Route PRN Reason Start Time Stop Time Status Last Admin Dose Admin Aspirin (Aspirin 81mg Chew Tab) 81 mg DAILY PO 08/28/24 09:00 09/27/24 08:59 08/28/24 09:49 81 MG Atorvastatin Calcium (LIPItor 20MG) 20 mg DAILY PO 08/28/24 09:00 09/27/24 08:59 08/28/24 09:49 20 MG Bumetanide (Bumex 1mg Tab) 1 mg BID PO 08/27/24 14:00 09/26/24 13:59 08/28/24 09:49 1 MG Bumetanide (Bumex 1mg Tab) 1 mg BID PO 08/27/24 21:00 08/27/24 13:16 DC Ceftriaxone Sodium (ROCEphine 1G INJ) 1 gm Q24H IVPB 08/27/24 09:00 09/06/24 08:59 08/28/24 09:48 1 GM Chlorpromazine HCl (ThorAZINE 25MG TAB) 50 mg ONCE PO 08/26/24 14:30 08/27/24 16:03 DC 08/26/24 14:53 50 MG Dobutamine HCl/ Dextrose 250 ml @ 0 mls/hr PROTOCOL IV 08/27/24 10:30 09/26/24 10:29 08/28/24 02:48 27.9 MLS/HR Famotidine (Pepcid 20mg Vial) 20 mg Q24H IV 08/26/24 21:00 09/25/24 20:59 08/27/24 20:38 20 MG Hydroxyzine HCl (ATArax 25MG TAB) 50 mg TID PO 08/28/24 17:30 09/27/24 17:29 08/28/24 18:10 50 MG Latanoprost (Xalatan) 1 DROP OP HS HS OP 08/27/24 21:00 09/26/24 20:59 Levothyroxine Sodium (SYNTHroid 50MCG TAB) 50 mcg SYN PO 08/28/24 06:30 09/27/24 06:29 08/28/24 06:46 50 MCG Nitroglycerin (Nitrostat) 0.4 mg AD SL 08/27/24 10:30 09/26/24 10:29 Tamsulosin HCl (FloMAX) 0.4 mg DAILY PO 08/28/24 09:00 09/27/24 08:59 08/28/24 09:49 0.4 MG Vitamin B Complex/ Vit C/Folic Acid (Nephrovite Tablet) 1 cap DAILY PO 08/28/24 09:00 10/05/24 09:00 08/28/24 09:51 1 CAP DIAGNOSTICS / RADIOLOGY: [ ] ASSESSMENT: Intractable hiccups BUN Bowel obstruction rule out Suspected UTI Acute on chronic CHF exacerbation with systolic and diastolic dysfunction with EF of less than 20% CKD stage 4 Troponin elevation likely in setting of type 2 ID History of CVA History of diverticular nobody The history of IVC filter placement due to DVT and contraindication to anticoagulation History of vitreous bilateral hemorrhagic with legal blindness PLAN: - Continue PCCU - in reference to intractable hiccups. Reviewed CT abdomen noted moderate amount of free fluid in the abdomen and pelvis, etiology not identified. Edema in the anterior abdominal wall consistent with anasarca. He will continue with diuretics Bumex1 - - CV surgery does not recommend surgery - Case management consulted for hospice placement - Patient is on clear liquid diet, advanced as tolerated - Continue with Rocephin IV - Appreciate recommendations from Cardiology, we will follow his recommendations - Continue Nephrology recommendations Disposition: Pending hospice placement SIDDHARTHA JOHNSON MD Aug 28, 2024 19:03
[2024-08-28] MEDS ORDERED: LORazepam 0.5 MG TABLET PO PRN (21:30)
[2024-08-28 22:10] VITALS: BP 134/95; PULSE 120; RESP 20; TEMP 98.3
--- NOTE | 2024-08-28 23:44 | PN ---
Reason for consult: CHF HPI/story at presentation: This is a pleasant gentleman with past medical history as per present with complaints of shortness of breath, lower extremity meniscal edema. He has known history of multivessel coronary disease, currently managed medically because patient refused bypass surgery because he does not want to be on anticoagulation in the perioperative. Patient also had elevated troponins during hospitalization (anticoagulation for this as well because of issues with retina and is worried about losing more vision. No active issues with chest pain at this time. On diuresis and failed outpatient diuretic therapy. Subjective: 08/27/24 sob, abdominal distention 08/28/2024 no complaints Past medical history: See below Allergies, Meds See chart Review of systems Review of Systems Constitutional: Negative for chills and fever. HENT: Negative for ear discharge and ear pain. Eyes: Negative for photophobia and discharge. Respiratory: Negative for cough, sputum production and stridor. Cardiovascular: Negative for chest pain and palpitations. Gastrointestinal: Negative for diarrhea and vomiting. Genitourinary: Negative for frequency. Musculoskeletal: Negative for myalgias. Skin: Negative for rash. Neurological: Negative for focal weakness and seizures. Endo/Heme/Allergies: Negative for polydipsia. Psychiatric/Behavioral: Negative for hallucinations. Vitals see chart PHYSICAL EXAMINATION GENERAL: The patient is alert and oriented*3 HEENT: Nonicteric sclerae, non traumatic HEART: Regular rate and rhythm with no murmurs LUNGS: Clear to auscultation bilaterally ABDOMEN: No acute issues, non tender GENITAL, RECTAL: deferred SKIN: No rash NEUROLOGIC: NFND EXTREMITIES:EDEMA 07/2024 ASSESSMENT EXACERBATION OF CHF, CARDIOMYOPATHY Noncompliant with diuretics at home History of ischemic cardiomyopathy MVCAD on cath 07/2024 Stress test with infarction pattern, 02/2024 Ejection fraction of 15 to 20%, 06/2024 On diuresis with Bumex, 06/2024 DVT diagnosed 07/2024 s/p IVC filter NSTEMI Initial troponin of 1600, trending down HEMATURIA Moderate hematuria, 06/2024 CHRONIC KIDNEY DISEASE Stage III 3.4at presentation Creatinine at discharge from hospital, 06/2024 was 2.2 HYPERTENSION HYPERLIPIDEMIA DIABETES, TOBACCO USE CORE MEASURES Not on guideline directed medical therapy for cardiomyopathy given renal dysfunction OTHER MEDICAL PROBLEMS Anxiety disorder Diabetic neuropathy PLAN 08/27/2024 Will restart dobutamine, restart diuretics. This was done earlier today around 11 AM. No active chest pain, although, abdominal distention thought to be related to fluid overload, anasarca in setting of underlying cardiomyopathy. Compliant with medications at home. Renal function better at this admission compared to discharge although, likely improved in the absence of diuretics. Patient at this time, wants to consider proceeding with surgery. Will get CVT surgery on board. 08/28/2024 No not yet but reportedly, CVT surgery has declined surgery as patient may not be a candidate for bypass. Conservative measures were recommended and hospice is being considered. Remains on dobutamine, Lasix ATTESTATION I was involved substantially in the care of this patient Number and complexity of problems addressed 1 acute illness with severe exacerbation Amount and or complexity of data Review of prior external note(s) from each unique source - Number 2+_ Ordering of each unique test - Number 0 Review of the result(s) of each unique test - Number 2+ Assessment requiring an independent historian(s) No Independent interpretation of test performed by another MD/QHCP/appropriate source (not separately reported) No Discussion of management or test interpretation with external MD/QHCP/appropriate source (not separately reported) No Risk status (cardiac, billing related) edelmira Vitals/Labs Vital Signs Date Time Temp Pulse Resp B/P (MAP) Pulse Ox O2 Delivery O2 Flow Rate FiO2 08/28/24 22:45 Room Air* 0 21 08/28/24 22:10 98.2 120 20 134/95 99 Laboratory Tests 08/28/24 05:38 Medications Current Medications Furosemide 80 mg ONCE ONCE IVP Last administered on 08/26/24at 14:00; Start 08/26/24 at 14:00; Stop 08/26/24 at 14:01; Status DC Chlorpromazine HCl 50 mg ONCE PO Last administered on 08/26/24at 14:53; Start 08/26/24 at 14:30; Stop 08/27/24 at 16:03; Status DC Levofloxacin/ Dextrose 750 mg ONCE ONCE IV; Start 08/26/24 at 14:30; Stop 08/26/24 at 14:34; Status DC Albuterol Sulfate 1 mg ONCE ONCE IH Last administered on 08/26/24at 15:26; Start 08/26/24 at 15:00; Stop 08/26/24 at 15:02; Status DC Famotidine 20 mg Q24H IV Last administered on 08/28/24at 20:53; Start 08/26/24 at 21:00; Stop 09/25/24 at 20:59 Ceftriaxone Sodium 1 gm Q24H IVPB Last administered on 08/28/24at 09:48; Start 08/27/24 at 09:00; Stop 09/06/24 at 08:59 Bumetanide 1 mg BID PO; Start 08/27/24 at 21:00; Stop 08/27/24 at 13:16; Status DC Dobutamine HCl/ Dextrose 250 ml @ 0 mls/hr PROTOCOL IV Last administered on 08/28/24at 02:48; Start 08/27/24 at 10:30; Stop 09/26/24 at 10:29 Aspirin 81 mg DAILY PO Last administered on 08/28/24at 09:49; Start 08/28/24 at 09:00; Stop 09/27/24 at 08:59 Atorvastatin Calcium 20 mg DAILY PO Last administered on 08/28/24at 09:49; Start 08/28/24 at 09:00; Stop 09/27/24 at 08:59 Latanoprost 1 DROP OP HS HS OP Last administered on 08/28/24at 20:54; Start 08/27/24 at 21:00; Stop 09/26/24 at 20:59 Nitroglycerin 0.4 mg AD SL; Start 08/27/24 at 10:30; Stop 09/26/24 at 10:29 Tamsulosin HCl 0.4 mg DAILY PO Last administered on 08/28/24at 09:49; Start 08/28/24 at 09:00; Stop 09/27/24 at 08:59 Levothyroxine Sodium 50 mcg SYN PO Last administered on 08/28/24at 06:46; Start 08/28/24 at 06:30; Stop 09/27/24 at 06:29 Potassium Chloride 20 meq ONCE ONCE PO Last administered on 08/27/24at 12:41; Start 08/27/24 at 10:30; Stop 08/27/24 at 10:31; Status DC Vitamin B Complex/ Vit C/Folic Acid 1 cap DAILY PO Last administered on 08/28/24at 09:51; Start 08/28/24 at 09:00; Stop 10/05/24 at 09:00 Bumetanide 1 mg BID PO Last administered on 08/28/24at 20:53; Start 08/27/24 at 14:00; Stop 09/26/24 at 13:59 Hydroxyzine HCl 50 mg TID PO Last administered on 08/28/24at 20:54; Start 08/28/24 at 17:30; Stop 09/27/24 at 17:29 Lorazepam 0.5 mg ONCE ONCE PO; Start 08/28/24 at 18:00; Stop 08/28/24 at 21:03; Status DC Lorazepam 0.5 mg ONCE PRN PO; Start 08/28/24 at 21:30; Stop 09/27/24 at 21:29 GUSTAVO PRUITT MD Aug 28, 2024 23:44
[2024-08-28 23:50] VITALS: BP 124/79; PULSE 116; RESP 20; TEMP 98.1
[2024-08-29 00:19] VITALS: BP 126/89; PULSE 117; RESP 18; TEMP 98
[2024-08-29 00:30] VITALS: O2SAT 98
--- NOTE | 2024-08-29 03:07 | NUR ---
PATIENT SIGNED REFUSAL OF TX FORM FOR BED ALARM.
[2024-08-29 03:53] VITALS: BP 125/76; PULSE 122; RESP 18; TEMP 98.2
[2024-08-29 05:48] LABS: BASOPHILS # (AUTO) 0.06 K/uL (0.00-0.20); BASOPHILS % (AUTO) 0.7 % (0.0-5.0); EOSINOPHILS # (AUTO) 1.21 K/uL (0.00-0.70); EOSINOPHILS % (AUTO) 14.5 % (0.0-8.0); HEMATOCRIT 36.8 % (42-54); IMMATURE GRANULOCYTE ABSOLUTE 0.03 K/uL (0-1); LYMPHOCYTES # (AUTO) 0.8 K/uL (1.0-4.8); LYMPHOCYTES % (AUTO) 9.6 % (21.0-51.0); MEAN CORPUSCULAR HEMOGLOBIN 27.3 pg (27.0-33.0); MEAN CORPUSCULAR HGB CONC 32.3 g/dL (32.0-36.0); MEAN CORPUSCULAR VOLUME 84.4 fL (79-99); MONOCYTES # (AUTO) 0.9 K/uL (0.1-1.0); MONOCYTES % (AUTO) 11.3 % (3.0-13.0); NEUTROPHILS # (AUTO) 5.3 K/uL (1.8-7.7); NEUTROPHILS % (AUTO) 63.5 % (40.0-77.0); PLATELET COUNT (AUTO) 221 K/uL (130-400); RED BLOOD CELL COUNT(AUTO) 4.36 MIL/uL (4.50-6.20); RED CELL DISTRIBUTION WIDTH 21.2 % (11.0-15.5); WHITE BLOOD COUNT (AUTO) 8.3 K/uL (4.8-10.8)
[2024-08-29 05:57] LABS: ALBUMIN 2.5 g/dL (3.5-5.0); BILIRUBIN,TOTAL 1.7 mg/dL (0.2-1.0); CREATININE 1.7 mg/dL (0.5-1.3); PHOSPHORUS 2.3 mg/dL (2.5-4.9); TOTAL PROTEIN, SERUM 7.1 g/dL (6.0-8.3)
--- NOTE | 2024-08-29 06:17 | NUR ---
AT THIS TIME PAGED HOSPITALIST TO REPORT POTASSIUM LEVEL OF 3.0. NO POTASSIUM PROTOCOL IN PLACE. PENDING CALL BACK FROM HOSPITALIST.
[2024-08-29] MEDS ORDERED: PoTASSium chl 10% ELIXIR 20MEQ 20 MEQ/15 ML UDCUP PO PRN (07:00)
[2024-08-29] MEDS ORDERED: PoTASSium chloRIDE 20MEQ/100ML 100 ML IV PRN (07:00)
[2024-08-29] MEDS: MAGNESIUM 2GM PREMIX 50ML 50 ML IV PRN (07:02)
[2024-08-29] MEDS: PoTASSium chloRIDE 20MEQ ER 20 MEQ ERTAB PO PRN (07:03)
[2024-08-29] MEDS ORDERED: MEROPENEM 1 GM in 0.9%NACL 100ML 100 ML IV SCH (07:30)
[2024-08-29 07:33] VITALS: BP_SYST 110; BP_SYST 131; BP_DIAS 65; BP_DIAS 68; PULSE 95; RESP 18; TEMP 98.5
[2024-08-29 07:51] VITALS: O2SAT 98
--- NOTE | 2024-08-29 08:00 | NUR ---
WADELI ESBL REPORTED TO DR. JOHNSON THIS AM. CHANGED ANTIBIOTIC TO MERREM IV AND PUT IN ORDER FOR INFECTIOUS DISEASE DR MCNEIL.
[2024-08-29] MEDS: MEROPENEM 1 GM VIAL IVPB SCH (10:38)
--- NOTE | 2024-08-29 10:52 | NUR ---
DCP: HOME WITH [facility] [id number] Per Bill at [facility], pt is accepted. Pt does not want DME delivered till he is home. Pt does not want to sign OOHDNR until he is home. Brother will picker box operator pt at dc. Hospice is ready for pt to dc when medically cleared. Nurse Vivi informed and she will notify Dr Boyd
[2024-08-29 12:00] VITALS: BP 125/79; PULSE 92; RESP 20; TEMP 98.8
--- NOTE | 2024-08-29 12:05 | PN ---
TIME: 11:00 a.m. SUBJECTIVE: The patient is a 64-year-old gentleman who has been known to our service. He has ischemic cardiomyopathy with an ejection fraction of 15% and poor target for coronary artery bypass grafting. We were consulted again for coronary artery disease. Unfortunately, this patient is not a surgical candidate at this time for coronary artery bypass grafting. I explained this to the patient in detail. He understands and he will stay with medical therapy as per the primary team. Thank you very much for the consultation. TID: [id number] RECEIPT: [id number]
--- NOTE | 2024-08-29 12:43 | PN ---
NEPHROLOGY PROGRESS NOTE Date/Time Patient Seen: Aug 29, 2024 SUBJECTIVE: This is a 64 year old male with a past medical history of Diabetes mellitus type2, hypertension, CKD, history of CVA, diastolic dysfunction, and CHF with the EF of less than 20% He presented to the emergency department with a chief complaint of hiccups He has a recent hospital admission for fluid overload, CHF with the EF of 20%, with dobutamine and was discharged on 08/22 We have been consulted for renal failure Renal function remains elevated Electrolytes are stable. Hemoglobin is stable He has been started on Bumex1 mg p.o. BID. Continue to be followed by cardiology. Patient does not a candidate for surgery Case management coordinating home hospice care. No family at the bedside Progress remains guarded REVIEW OF SYSTEMS: GENERAL: Positive for hiccups NEUROLOGIC: Negative for any blurry vision, blind spots, double vision, facial asymmetry, dysphagia, dysarthria, hemiparesis, hemisensory deficits, vertigo, ataxia. HEENT: Negative for any head trauma, neck trauma, neck stiffness, photophobia, phonophobia, sinusitis, rhinitis. CARDIAC: Negative for any chest pain, dyspnea on exertion, paroxysmal nocturnal dyspnea, peripheral edema. PULMONARY: Negative for any shortness of breath, wheezing, COPD, or TB exposure. GASTROINTESTINAL: Negative for any abdominal pain, nausea, vomiting, bright red blood per rectum, melena. GENITOURINARY: Negative for any dysuria, hematuria, incontinence. INTEGUMENTARY: Negative for any rashes, cuts, insect bites. RHEUMATOLOGIC: Negative for any joint pains, photosensitive rashes, history of vasculitis or kidney problems. HEMATOLOGIC: Negative for any abnormal bruising, frequent infections or bleeding. Vital Signs (last 8hr) Date Time Temp Pulse Resp B/P (MAP) Pulse Ox O2 Delivery O2 Flow Rate FiO2 08/27/24 10:30 93 20 113/80 99 Room Air* 0 21 PHYSICAL EXAM: GENERAL: Alert and oriented x 3. No acute distress. Well-nourished. EYES: EOMI. Anicteric. HENT: Moist mucous membranes. No scleral icterus. No cervical lymphadenopathy. LUNGS: Clear to auscultation bilaterally. No accessory muscle use. CARDIOVASCULAR: Regular rate and rhythm. No murmur. No JVD. ABDOMEN: Soft, non-tender and non-distended. No palpable masses. EXTREMITIES: No edema. Non-tender. SKIN: No rashes or lesions. Warm. NEUROLOGIC: No focal neurological deficits. CN II-XII grossly intact, but not individually tested. PSYCHIATRIC: Cooperative. Appropriate mood and affect. Current Medications Medications (Trade) Dose Ordered Sig/Anjelica Route PRN Reason Start Time Stop Time Status Last Admin Dose Admin Aspirin (Aspirin 81mg Chew Tab) 81 mg DAILY PO 08/28/24 09:00 09/27/24 08:59 Atorvastatin Calcium (LIPItor 20MG) 20 mg DAILY PO 08/28/24 09:00 09/27/24 08:59 Bumetanide (Bumex 1mg Tab) 1 mg BID PO 08/27/24 14:00 09/26/24 13:59 Bumetanide (Bumex 1mg Tab) 1 mg BID PO 08/27/24 21:00 08/27/24 13:16 DC Ceftriaxone Sodium (ROCEphine 1G INJ) 1 gm Q24H IVPB 08/27/24 09:00 09/06/24 08:59 08/27/24 09:55 1 GM Chlorpromazine HCl (ThorAZINE 25MG TAB) 50 mg ONCE PO 08/26/24 14:30 09/25/24 14:29 08/26/24 14:53 50 MG Dobutamine HCl/ Dextrose 250 ml @ 0 mls/hr PROTOCOL IV 08/27/24 10:30 09/26/24 10:29 Famotidine (Pepcid 20mg Vial) 20 mg Q24H IV 08/26/24 21:00 09/25/24 20:59 08/26/24 21:26 20 MG Latanoprost (Xalatan) 1 DROP OP HS HS OP 08/27/24 21:00 09/26/24 20:59 Levothyroxine Sodium (SYNTHroid 50MCG TAB) 50 mcg SYN PO 08/28/24 06:30 09/27/24 06:29 Nitroglycerin (Nitrostat) 0.4 mg AD SL 08/27/24 10:30 09/26/24 10:29 Tamsulosin HCl (FloMAX) 0.4 mg DAILY PO 08/28/24 09:00 09/27/24 08:59 Vitamin B Complex/ Vit C/Folic Acid (Nephrovite Tablet) 1 cap DAILY PO 08/28/24 09:00 10/05/24 09:00 LABORATORY: [ ] Hematology Labs: Test 08/29/24 05:34 Range/Units White Blood Count 8.3 4.8-10.8 K/uL Red Blood Count 4.36 L 4.50-6.20 MIL/uL Hemoglobin 11.9 L 14.0-18.0 g/dL Hematocrit 36.8 L 42-54 % Mean Corpuscular Volume 84.4 79-99 fL Mean Corpuscular Hemoglobin 27.3 27.0-33.0 pg Mean Corpuscular Hemoglobin Concent 32.3 32.0-36.0 g/dL Red Cell Distribution Width 21.2 H 11.0-15.5 % Platelet Count 221 130-400 K/uL Mean Platelet Volume 9.5 7.5-10.5 fL Immature Granulocyte % (Auto) 0.4 0-1 % Neutrophils (%) (Auto) 63.5 40.0-77.0 % Lymphocytes (%) (Auto) 9.6 L 21.0-51.0 % Monocytes (%) (Auto) 11.3 3.0-13.0 % Eosinophils (%) (Auto) 14.5 H 0.0-8.0 % Basophils (%) (Auto) 0.7 0.0-5.0 % Neutrophils # (Auto) 5.3 1.8-7.7 K/uL Lymphocytes # (Auto) 0.8 L 1.0-4.8 K/uL Monocytes # (Auto) 0.9 0.1-1.0 K/uL Eosinophils # (Auto) 1.21 H 0.00-0.70 K/uL Basophils # (Auto) 0.06 0.00-0.20 K/uL Absolute Immature Granulocyte (auto 0.03 0-1 K/uL Nucleated Red Blood Cells 0.0 0.0-0.19 % Chemistry Labs: Test 08/29/24 05:34 Range/Units Sodium Level 139 136-145 mmol/L Potassium Level 3.0 *L 3.5-5.1 mmol/L Chloride Level 99 L 101-111 mmol/L Carbon Dioxide Level 33 H 21-32 mmol/L Blood Urea Nitrogen 35 H 7-18 mg/dL Creatinine 1.7 H 0.5-1.3 mg/dL Glomerular Filtration Rate Calc 45 >90 mL/min Random Glucose 151 H 70-105 mg/dL Total Calcium 8.6 8.5-10.1 mg/dL Phosphorus Level 2.3 L 2.5-4.9 mg/dL Magnesium Level 1.60 L 1.80-2.40 mg/dL Total Bilirubin 1.7 H 0.2-1.0 mg/dL Aspartate Amino Transf (AST/SGOT) 41 H 10-37 U/L Alanine Aminotransferase (ALT/SGPT) 23 12-78 U/L Alkaline Phosphatase 199 H 50-136 U/L Total Protein 7.1 6.0-8.3 g/dL Albumin 2.5 L 3.5-5.0 g/dL DIAGNOSTICS / RADIOLOGY: REASON: intractable hiccups, rule out obstrcution, abdominal distention ORDERING PHYSICIAN: CHARAN WEEMS MD PROCEDURE: ABD PEL WO - CT ABDOMEN/PELVIS W/O CONTRAST CT ABDOMEN/PELVIS W/O CONTRAST REASON: intractable hiccups, rule out obstrcution, abdominal distention COMPARISON: None. FINDINGS: Lung bases are clear. There are no focal liver lesions. There is bilateral perinephric stranding, often a reflection of chronic renal disease. There is no mass, stone or hydronephrosis.. Spleen and pancreas appear unremarkable. The gallbladder appears normal as well. There is mild sigmoid diverticulosis without evidence of diverticulitis. Bowel loops appear otherwise unremarkable.. The appendix was not separately identified. There is no evidence of obstruction. There is no evidence of free intraperitoneal air. There is a small to moderate volume of free fluid around the liver and spleen as well as in the pelvic cul-de-sac, etiology not identified. There are no focal fluid collections. Aorta and retroperitoneum appear normal as do pelvic soft tissue structures. There is edema in the anterior abdominal wall consistent with anasarca.. Osseous structures appear unremarkable. IMPRESSION: 1. Moderate amount of free fluid in the abdomen and pelvis, etiology not identified. 2. Edema in the anterior abdominal wall consistent with anasarca. 3. No evidence of bowel obstruction. CT was performed with one or more following dose reduction techniques: automated exposure control, adjustment of the mA and kv according to patient's size, or use of a iterative reconstruction technique. DICTATED BY: CAMDEN WAGNER MD DATE: 08/26/24 2861 REASON: SHORTNESS A BREATH, HISTORY OF CHF ORDERING PHYSICIAN: CRAIG LI NP PROCEDURE: CXR1VW - CHEST 1VW CHEST 1VW HISTORY: Shortness of breath COMPARISON: 08/14/2024 FINDINGS: A frontal projection of the chest was obtained. Mild bilateral pulmonary infiltrates are seen may be related to mild pulmonary vascular congestion with possible superimposed pneumonitis. The heart is enlarged. Right pleural effusion is seen with compressive atelectasis. Degenerative changes are seen. No evidence of aortic calcification is seen. IMPRESSION: 1. Mild bilateral pulmonary infiltrates are seen may be related to mild pulmonary vascular congestion with possible superimposed pneumonitis. DICTATED BY: BETH CORRIGAN MD DATE: 08/26/24 1222 ASSESSMENT: Acute on Chronic renal failure Cardiorenal syndrome Anasarca Uncontrolled Diabetes mellitus type2 Acute on chronic CHF with LVEF 20% stage III diastolic dysfunction Hypertension History of CVA Diabetic retinopathy and neuropathy S/p post IVC filter placement secondary to DVT and contraindication to anticoagulation. PLAN: Labs, diagnostic, radiologic exams reviewed and interpreted by myself and supervising physician Patient has decided to proceed with hospice care. Discontinue all lab work as per patient wishes Case management coordinating home hospice care. BiPAP as necessary, for respiratory distress May use Dilaudid 0.5 mg IV every 6 hours as needed for severe pain We have discussed with the other team physicians in detail about the care plan We will continue to monitor the patient ATTESTATION BY PHYSICIAN I have seen and examined the patient. I reviewed the documentation, medical decision making, and treatment plan as noted by the mid-level provider above. I agree with the findings and plan of care. DENZEL ACKERMAN MD, [facility] Aug 29, 2024 12:43
--- NOTE | 2024-08-29 13:26 | DS ---
Discharge Summary Hospital Course Summary: 64-year-old male with past medical history of diabetes mellitus type 2, hypertension, hyperlipidemia, CKD, CVA, CAD history of heart failure with the EF of less than 20 percent, history of diastolic dysfunction present to the hospital with hiccups. The patient states for three days he had been having persistent hiccups and he had not been able to tolerate p.o. at home. He has not been able to tolerate solids or liquids. Has had two episodes of vomiting and denies any hematemesis, hematochezia, or melena. He has noted very scant amount of bowel movements. He denies passing flatus. Denied any fever, chills, cough, shortness of breath, falls, syncopal episode. Patient has a history of multivessel CAD and refused CABG in the past. He was admitted and cardiology was consulted who started him on IV dobutamine drip and diuresis. They recommended evaluation by cardiovascular surgery who deferred bypass procedure. Hospice was discussed with the patient who accepted home hospice. Patient was also noted to have ESBL E. Coli and was started on Meropenem. By hospital day 3 he was accepted to hospice and discharged. . Transit Department Clerk(s): Infectious disease Cardiology CV Surgery Procedure(s): CT ABDOMEN/PELVIS W/O CONTRAST REASON: intractable hiccups, rule out obstrcution, abdominal distention COMPARISON: None. FINDINGS: Lung bases are clear. There are no focal liver lesions. There is bilateral perinephric stranding, often a reflection of chronic renal disease. There is no mass, stone or hydronephrosis.. Spleen and pancreas appear unremarkable. The gallbladder appears normal as well. There is mild sigmoid diverticulosis without evidence of diverticulitis. Bowel loops appear otherwise unremarkable.. The appendix was not separately identified. There is no evidence of obstruction. There is no evidence of free intraperitoneal air. There is a small to moderate volume of free fluid around the liver and spleen as well as in the pelvic cul-de-sac, etiology not identified. There are no focal fluid collections. Aorta and retroperitoneum appear normal as do pelvic soft tissue structures. There is edema in the anterior abdominal wall consistent with anasarca.. Osseous structures appear unremarkable. IMPRESSION: 1. Moderate amount of free fluid in the abdomen and pelvis, etiology not identified. 2. Edema in the anterior abdominal wall consistent with anasarca. 3. No evidence of bowel obstruction. CHEST 1VW HISTORY: Shortness of breath COMPARISON: 08/14/2024 FINDINGS: A frontal projection of the chest was obtained. Mild bilateral pulmonary infiltrates are seen may be related to mild pulmonary vascular congestion with possible superimposed pneumonitis. The heart is enlarged. Right pleural effusion is seen with compressive atelectasis. Degenerative changes are seen. No evidence of aortic calcification is seen. IMPRESSION: 1. Mild bilateral pulmonary infiltrates are seen may be related to mild pulmonary vascular congestion with possible superimposed pneumonitis. Assessment/Plan: Intractable hiccups, resolved Bowel obstruction ruled out UTI, ESBL E. Coli Acute on chronic CHF exacerbation with systolic and diastolic dysfunction with EF of less than 20% CKD stage 4 Troponin elevation likely in setting of type 2 [place] History of CVA History of diverticular nobody The history of IVC filter placement due to DVT and contraindication to anticoagulation History of vitreous bilateral hemorrhagic with legal blindness Discharge Instructions: Follow up to be determined by hospice Home Medications: Active Scripts Bumetanide (Bumetanide) 1 Mg Tablet, 1 MG PO DAILY for 30 Days, #30 TAB Prov:BRIDGER MCCALL NP 08/21/24 Tamsulosin HCl (Flomax) 0.4 Mg Cap.er.24h, 0.4 MG PO DAILY for 30 Days, #30 CA PSULE.DR Prov:BRIDGER MCCALL NP 08/21/24 Reported Medications Latanoprost (Latanoprost) 0.005 % Drops, 1 DROP OP HS, ML 0 Refills 08/15/24 Losartan Potassium (Losartan Potassium) 25 Mg Tablet, 1 TAB PO DAILY for 30 Days, #30 TAB 0 Refills 08/15/24 Levothyroxine Sodium (Levothyroxine) 50 Mcg Capsule, 1 CAP PO DAILY for 30 Days, #30 CAP 0 Refills 08/15/24 Famotidine (Famotidine) 20 Mg Tablet, 1 TAB PO DAILY for 30 Days, #60 TAB 0 Refills 08/15/24 Nitroglycerin (Nitroglycerin) 0.4 Mg Tab.subl, 1 TAB SL AD for chest pain, #25 TAB 0 Refills 1st sign of attack; may repeat every 5 mins; if pain persists after 3 in 15 min, medical attention is recommended 08/15/24 Atorvastatin Calcium (Atorvastatin Calcium) 20 Mg Tablet, 1 TAB PO DAILY for 30 Days, #30 TAB 0 Refills 08/15/24 Aspirin (ASPIRIN 81MG CHEW TAB) 81 Mg Tab.chew, 81 MG PO DAILY, TAB.CHEW 08/15/24 Benzonatate (Tessalon Perles) 100 Mg Cap, 100 MG PO TIDP, CAP 08/15/24 Metoprolol Succinate (Metoprolol Succinate) 50 Mg Tab.er.24h, 1 TAB PO DAILY for 30 Days, #30 TAB 0 Refills 08/15/24 Hydroxyzine Pamoate (Hydroxyzine Pamoate) 25 Mg Capsule, 2 CAP PO BID for anxiety for 30 Days, #60 CAP 0 Refills 08/15/24 Time spent arranging discharge: 31-60 minutes SIDDHARTHA JOHNSON MD Aug 29, 2024 13:26
[2024-08-29] MEDS ORDERED: MACR100 PO (15:24)
--- NOTE | 2024-08-29 15:40 | NUR ---
DISCHARGE D/C INSTRUCTIONS GIVEN TO PT AND VERBALIZED UNDERSTANDING. IV AND TELE PACK REMOVED. PT CHANGED PHARMACY TO [facility] CALLED IN NEW MEDICATION. PT WAS ESCORTED VIA WHEELCHAIR TO PRIVATE CAR. PT WAS STABLE.
[2024-08-29] MEDS ORDERED: atorVAStatin 20 MG TABLET PO SCH (21:00)
--- NOTE | 2024-08-29 21:16 | PN ---
Reason for consult: CHF HPI/story at presentation: This is a pleasant gentleman with past medical history as per present with complaints of shortness of breath, lower extremity meniscal edema. He has known history of multivessel coronary disease, currently managed medically because patient refused bypass surgery because he does not want to be on anticoagulation in the perioperative. Patient also had elevated troponins during hospitalization (anticoagulation for this as well because of issues with retina and is worried about losing more vision. No active issues with chest pain at this time. On diuresis and failed outpatient diuretic therapy. Subjective: 08/27/24 sob, abdominal distention 08/28/2024 no complaints 08/29/2024 sob Past medical history: See below Allergies, Meds See chart Review of systems Review of Systems Constitutional: Negative for chills and fever. HENT: Negative for ear discharge and ear pain. Eyes: Negative for photophobia and discharge. Respiratory: Negative for cough, sputum production and stridor. Cardiovascular: Negative for chest pain and palpitations. Gastrointestinal: Negative for diarrhea and vomiting. Genitourinary: Negative for frequency. Musculoskeletal: Negative for myalgias. Skin: Negative for rash. Neurological: Negative for focal weakness and seizures. Endo/Heme/Allergies: Negative for polydipsia. Psychiatric/Behavioral: Negative for hallucinations. Vitals see chart PHYSICAL EXAMINATION GENERAL: The patient is alert and oriented*3 HEENT: Nonicteric sclerae, non traumatic HEART: Regular rate and rhythm with no murmurs LUNGS: Clear to auscultation bilaterally ABDOMEN: No acute issues, non tender GENITAL, RECTAL: deferred SKIN: No rash NEUROLOGIC: NFND EXTREMITIES:EDEMA 07/2024 ASSESSMENT EXACERBATION OF CHF, CARDIOMYOPATHY Noncompliant with diuretics at home History of ischemic cardiomyopathy MVCAD on cath 07/2024 Stress test with infarction pattern, 02/2024 Ejection fraction of 15 to 20%, 06/2024 On diuresis with Bumex, 06/2024 DVT diagnosed 07/2024 s/p IVC filter NSTEMI Initial troponin of 1600, trending down HEMATURIA Moderate hematuria, 06/2024 CHRONIC KIDNEY DISEASE Stage III 3.4at presentation Creatinine at discharge from hospital, 06/2024 was 2.2 HYPERTENSION HYPERLIPIDEMIA DIABETES, TOBACCO USE CORE MEASURES Not on guideline directed medical therapy for cardiomyopathy given renal dysfunction OTHER MEDICAL PROBLEMS Anxiety disorder Diabetic neuropathy PLAN 08/27/2024 Will restart dobutamine, restart diuretics. This was done earlier today around 11 AM. No active chest pain, although, abdominal distention thought to be related to fluid overload, anasarca in setting of underlying cardiomyopathy. Compliant with medications at home. Renal function better at this admission compared to discharge although, likely improved in the absence of diuretics. Patient at this time, wants to consider proceeding with surgery. Will get CVT surgery on board. 08/28/2024 No not yet but reportedly, CVT surgery has declined surgery as patient may not be a candidate for bypass. Conservative measures were recommended and hospice is being considered. Remains on dobutamine, Lasix 08/29/2024 Patient has been transitioned to hospice no plans per CV surgery for surgery. Plan to start dobutamine, continue diuretics at discharge. Call us if needed. ATTESTATION I was involved substantially in the care of this patient Number and complexity of problems addressed 1 acute illness with severe exacerbation Amount and or complexity of data Review of prior external note(s) from each unique source - Number 2+_ Ordering of each unique test - Number 0 Review of the result(s) of each unique test - Number 2+ Assessment requiring an independent historian(s) No Independent interpretation of test performed by another MD/QHCP/appropriate source (not separately reported) No Discussion of management or test interpretation with external MD/QHCP/appropriate source (not separately reported) No Risk status (cardiac, billing related) moderate Vitals/Labs Vital Signs Date Time Temp Pulse Resp B/P (MAP) Pulse Ox O2 Delivery O2 Flow Rate FiO2 08/29/24 12:00 98.8 92 20 125/79 98 Room Air 08/29/24 07:51 0 21 Laboratory Tests 08/29/24 05:34 Medications Current Medications Furosemide 80 mg ONCE ONCE IVP Last administered on 08/26/24at 14:00; Start 08/26/24 at 14:00; Stop 08/26/24 at 14:01; Status DC Chlorpromazine HCl 50 mg ONCE PO Last administered on 08/26/24at 14:53; Start 08/26/24 at 14:30; Stop 08/27/24 at 16:03; Status DC Levofloxacin/ Dextrose 750 mg ONCE ONCE IV; Start 08/26/24 at 14:30; Stop 08/26/24 at 14:34; Status DC Albuterol Sulfate 1 mg ONCE ONCE IH Last administered on 08/26/24at 15:26; Start 08/26/24 at 15:00; Stop 08/26/24 at 15:02; Status DC Famotidine 20 mg Q24H IV Last administered on 08/28/24at 20:53; Start 08/26/24 at 21:00; Stop 08/29/24 at 15:46; Status DC Ceftriaxone Sodium 1 gm Q24H IVPB Last administered on 08/28/24at 09:48; Start 08/27/24 at 09:00; Stop 08/29/24 at 07:03; Status DC Bumetanide 1 mg BID PO; Start 08/27/24 at 21:00; Stop 08/27/24 at 13:16; Status DC Dobutamine HCl/ Dextrose 250 ml @ 0 mls/hr PROTOCOL IV Last administered on 08/28/24at 02:48; Start 08/27/24 at 10:30; Stop 08/29/24 at 11:04; Status DC Aspirin 81 mg DAILY PO Last administered on 08/29/24at 10:05; Start 08/28/24 at 09:00; Stop 08/29/24 at 15:46; Status DC Atorvastatin Calcium 20 mg DAILY PO Last administered on 08/28/24at 09:49; Start 08/28/24 at 09:00; Stop 08/29/24 at 06:40; Status DC Latanoprost 1 DROP OP HS HS OP Last administered on 08/28/24at 20:54; Start 08/27/24 at 21:00; Stop 08/29/24 at 15:46; Status DC Nitroglycerin 0.4 mg AD SL; Start 08/27/24 at 10:30; Stop 08/29/24 at 15:46; Status DC Tamsulosin HCl 0.4 mg DAILY PO Last administered on 08/29/24at 10:05; Start 08/28/24 at 09:00; Stop 08/29/24 at 15:46; Status DC Levothyroxine Sodium 50 mcg SYN PO Last administered on 08/29/24at 06:40; Start 08/28/24 at 06:30; Stop 08/29/24 at 15:46; Status DC Potassium Chloride 20 meq ONCE ONCE PO Last administered on 08/27/24at 12:41; Start 08/27/24 at 10:30; Stop 08/27/24 at 10:31; Status DC Vitamin B Complex/ Vit C/Folic Acid 1 cap DAILY PO Last administered on 08/29/24at 10:05; Start 08/28/24 at 09:00; Stop 08/29/24 at 15:46; Status DC Bumetanide 1 mg BID PO Last administered on 08/29/24at 10:05; Start 08/27/24 at 14:00; Stop 08/29/24 at 15:46; Status DC Hydroxyzine HCl 50 mg TID PO Last administered on 08/29/24at 10:06; Start 08/28/24 at 17:30; Stop 08/29/24 at 15:46; Status DC Lorazepam 0.5 mg ONCE ONCE PO; Start 08/28/24 at 18:00; Stop 08/28/24 at 21:03; Status DC Lorazepam 0.5 mg ONCE PRN PO; Start 08/28/24 at 21:30; Stop 08/29/24 at 15:46; Status DC Potassium Chloride 100 ml @ 100 mls/hr AD PRN IV; Start 08/29/24 at 07:00; Stop 08/29/24 at 15:46; Status DC Potassium Chloride 20 meq AD PRN PO; Start 08/29/24 at 07:00; Stop 08/29/24 at 15:46; Status DC Potassium Chloride 20 meq AD PRN PO Last administered on 08/29/24at 07:03; Start 08/29/24 at 07:00; Stop 08/29/24 at 15:46; Status DC Magnesium Sulfate 50 ml @ 0 mls/hr PROTOCOL PRN IV Last administered on 08/29/24at 07:02; Start 08/29/24 at 07:00; Stop 08/29/24 at 15:46; Status DC Atorvastatin Calcium 20 mg HS PO; Start 08/29/24 at 21:00; Stop 08/29/24 at 15:46; Status DC Meropenem 1 gm/ Sodium Chloride 100 ml @ 33.333 mls/ hr Q12H IV; Start 08/29/24 at 07:30; Stop 08/29/24 at 07:08; Status DC Meropenem 1 gm Q12H IVPB Last administered on 08/29/24at 10:38; Start 08/29/24 at 07:30; Stop 08/29/24 at 15:46; Status DC GUSTAVO PRUITT MD Aug 29, 2024 21:16
== END 2024-08-29 15:46 | disposition hospice, home (50) | DRG 280 ==
LOC: EDH 11:06 → EDHIP 14:40 → 4CH 08-28 20:56 → 2DH 08-29 00:14
PROVIDERS: ADMIT Internal Medicine; ATTEND Internal Medicine
DX: I13.0 Hypertensive heart and chronic kidney disease with heart failure and stage 1 through stage 4 chronic kidney disease, or unspecified chronic kidney disease (principal); I50.43 Acute on chronic combined systolic (congestive) and diastolic (congestive) heart failure; I21.A1 Myocardial infarction type 2; J18.9 Pneumonia, unspecified organism; N18.4 Chronic kidney disease, stage 4 (severe); N17.9 Acute kidney failure, unspecified; K56.609 Unspecified intestinal obstruction, unspecified as to partial versus complete obstruction; N39.0 Urinary tract infection, site not specified; Z16.12 Extended spectrum beta lactamase (ESBL) resistance; I25.5 Ischemic cardiomyopathy; I25.10 Atherosclerotic heart disease of native coronary artery without angina pectoris; F41.9 Anxiety disorder, unspecified; E78.00 Pure hypercholesterolemia, unspecified; E11.65 Type 2 diabetes mellitus with hyperglycemia; E11.40 Type 2 diabetes mellitus with diabetic neuropathy, unspecified; R06.6 Hiccough; F32.A Depression, unspecified; Z20.822 Contact with and (suspected) exposure to COVID-19; E11.22 Type 2 diabetes mellitus with diabetic chronic kidney disease; B96.20 Unspecified Escherichia coli [E. coli] as the cause of diseases classified elsewhere; E11.319 Type 2 diabetes mellitus with unspecified diabetic retinopathy without macular edema; Z95.828 Presence of other vascular implants and grafts; Z95.1 Presence of aortocoronary bypass graft; Z91.148 Patient's other noncompliance with medication regimen for other reason; Z90.49 Acquired absence of other specified parts of digestive tract; Z86.73 Personal history of transient ischemic attack (TIA), and cerebral infarction without residual deficits
CPT/HCPCS: 36415; 71045; 74176; 80048; 80053; 80305; 81001; 82948; 83605; 83735; 83880; 84100; 84484; 85025; 85027; 87040; 87086; 87186; 87635; 87804; 93005; 94640; 96374; 99285; G0378; J0696; J1250; J1940; J2185; J3475; J3490; Q0161